=== PATIENT | female | born 1950 | race Caucasian/White ===

== ENCOUNTER 2016-12-16 09:52 | Day surgery (SDC) | payer OTHER ==
[2016-12-16] VITALS (7 sets, daily range): BP systolic 133–185; BP diastolic 60–92; PULSE 53–62; RESP 18–20; TEMP 97.4–98.3; O2SAT 93–95
[~2016-12-16] VITALS: Ht 176.5 cm; Wt 85.9 kg
[2016-12-16] MEDS ORDERED: SODIUM CHLOR 0.9% 1000 ML IV SCH (10:00)
[2016-12-16] MEDS ORDERED: LOVA10TA PO (10:32)
[2016-12-16] MEDS ORDERED: FURO1TAB60 PO (10:32)
[2016-12-16] MEDS ORDERED: WARF-60 PO (10:32)
[2016-12-16] MEDS ORDERED: COZA25TA PO (10:32)
[2016-12-16] MEDS ORDERED: ALLO100T PO (10:32)
[2016-12-16] MEDS ORDERED: BACL20TA PO (10:32)
[2016-12-16] MEDS ORDERED: POTA-163 PO (10:32)
[2016-12-16] MEDS ORDERED: METO25TA3 PO (10:32)
[2016-12-16] MEDS ORDERED: VITA2000 PO (10:35)
[2016-12-16] MEDS ORDERED: MAGN400T24 (10:35)
[2016-12-16] MEDS ORDERED: TIZA4TAB PO (10:35)
[2016-12-16] MEDS ORDERED: ACET-822 (10:35)
[2016-12-16] MEDS ORDERED: OMEP20TA PO (10:35)
[2016-12-16] MEDS ORDERED: MONT10TA2 PO (10:35)
[2016-12-16 11:31] LABS: AUTOMATED NEUTROPHIL # 4.3 TH/MM3 (1.8-7.7); BASOPHIL % 0.8 % (0.0-2.0); EOSINOPHIL # 0.1 TH/MM3 (0-0.4); EOSINOPHIL % 1.4 % (0.0-4.0); HEMATOCRIT 36.1 % (35.0-46.0); HEMO FLAGS DIFF FINAL; LYMPH % 10.5 % (9.0-44.0); LYMPHOCYTE # 0.6 TH/MM3 (1.0-4.8); MEAN CELL VOLUME 91.7 FL (80.0-100.0); MEAN CORPUSCULAR HEMOGLOBIN 30.8 PG (27.0-34.0); MEAN CORPUSCULAR HGB CONC 33.6 % (32.0-36.0); MONO % 7.8 % (0.0-8.0); NEUT % 79.5 % (16.0-70.0); PLATELET COUNT 117 TH/MM3 (150-450); RED BLOOD COUNT 3.94 MIL/MM3 (4.00-5.30); RED CELL DISTRIBUTION WIDTH 15.4 % (11.6-17.2); WHITE BLOOD COUNT 5.4 TH/MM3 (4.0-11.0)
[2016-12-16 11:36] LABS: APTT (PATIENT) 29.8 SEC (24.3-30.1); INTERNATIONAL NORMALIZED RATIO 1.3 RATIO; PROTHROMBIN TIME - PATIENT 14.2 SEC (9.8-11.6)
[2016-12-16] MEDS ORDERED: LIDOCAINE 1%/EPINEPHrine 1:100,000 SOLN 20 ML VIAL ONE (11:49)
[2016-12-16] MEDS ORDERED: fentaNYL CITRATE 250 MCG/5 ML AMP ONE (12:05)
[2016-12-16] MEDS ORDERED: MIDAZOLAM HCL 5 MG/5 ML VIAL ONE (12:06)
--- NOTE | 2016-12-16 15:25 | RADRPT ---
EXAM DATE/TIME: 12/16/2016 12:14 [facility] COMPARISON: No previous studies available for comparison. INDICATIONS : Mesenteric mass. SEDATION TIME: 15 minutes BIOPSY SITE: Left MEDICATION(S): 1.) 2 mg midazolam (Versed) IV 2.) 100 mcg fentanyl (Sublimaze) IV Anesthesia and pain control was provided by the Anesthesia department. DEVICE(S): 1.) 20 gauge Temno core biopsy needle MEDICAL HISTORY : Diabetes mellitus type 2. Hypertension. Cardiovascular disease. SURGICAL HISTORY : Appendectomy. Hysterectomy. Cholecystectomy. ENCOUNTER: Initial ACUITY: 1 day PAIN SCORE: 0/10 LOCATION: Left abdomen A total of one core specimen(s) were obtained and sent to the laboratory for pathologic evaluation. PROCEDURE: 1. CT guided abdomen biopsy. 2. Conscious sedation with continuous EKG and oximetry monitoring. 3. EKG and oximetry remained stable throughout the procedure. Prior to the procedure informed consent was obtained. Any appropriate prior imaging studies were rev iewed. Using automated exposure control and adjustment of the mA and/or kV according to patient size, radiat ion dose was kept as low as reasonably achievable to obtain optimal diagnostic quality images. DICOM format image data is available electronically for review and comparison. The site was prepped in a sterile fashion. Full sterile technique was used, including cap, mask, tim rile gloves and gown and a large sterile sheet. Hand hygiene and 2% chlorhexidine and/or betadine/al cohol prep was utilized per protocol for cutaneous antisepsis. The skin and subcutaneous tissues wer e infiltrated with local anesthetic solution. An 18 gauge blunt needle was placed between loops of bowel down into the mesenteric mass and 3 cores obtained. Material was submitted for pathology as well as for RPMI immediate evaluation. Scan shows no hemorrhage. The patient tolerated the procedure well and there were no complications. The patient was returned to the Radiology Outpatient Unit in stable condition. CONCLUSION: Uncomplicated CT guided biopsy of the mass in the root of the mesentery from the left -sided approach. Pathology is pending. Farhad Tomas MD FACR on December 16, 2016 at 15:22 Board Certified Radiologist. This report was verified electronically.
== END 2016-12-16 16:27 | disposition home or self-care (01) ==
LOC: HRAD 09:52 → HRIP 09:53 → HRAD 16:27
PROVIDERS: ATTEND Internal Medicine Hematology & Oncology
DX: C82.90 Follicular lymphoma, unspecified, unspecified site (principal); I10 Essential (primary) hypertension; J45.909 Unspecified asthma, uncomplicated; E11.9 Type 2 diabetes mellitus without complications; Z95.0 Presence of cardiac pacemaker; Z86.73 Personal history of transient ischemic attack (TIA), and cerebral infarction without residual deficits; Z85.820 Personal history of malignant melanoma of skin; Z95.2 Presence of prosthetic heart valve
CPT/HCPCS: 49180; 77012; 85025; 85610; 85730; 88184; 88185; 88305; 88341; 88342; 99152; J2250; J3010; J7030

== ENCOUNTER 2017-01-06 06:55 | Day surgery (SDC) | payer OTHER ==
[~2017-01-06] VITALS: Ht 175.3 cm; Wt 82.3 kg
[2017-01-06] VITALS (7 sets, daily range): BP systolic 109–147; BP diastolic 55–90; PULSE 59–75; RESP 15–18; TEMP 97.6–97.8; O2SAT 94–98
[~2017-01-06 06:55] MED LIST: ACET-822; ALLO100T PO; BACL20TA PO; COZA25TA PO; FURO1TAB60 PO; LOVA10TA PO; MAGN400T24; METO25TA3 PO; MONT10TA2 PO; OMEP20TA PO; POTA-163 PO; TIZA4TAB PO; VITA2000 PO; WARF-60 PO
[2017-01-06] MEDS ORDERED: ALLO300T2 PO (07:27)
[2017-01-06] MEDS ORDERED: METO5TAB3 PO (07:27)
[2017-01-06] MEDS ORDERED: CHLORHEXIDINE GLUCONATE 2 % 1 PACK (2 CLOTHS) TOPICAL SCH (08:15)
[2017-01-06] MEDS ORDERED: VANCOMYCIN 1000 MG/NS 250 ML - implanted port/tunneled catheter IV SCH ×2 (08:15)
[2017-01-06] MEDS ORDERED: SODIUM CHLORIDE 0.9% 1000 ML IV SCH (08:15)
[2017-01-06 08:16] LABS: BASOPHIL % 0.3 % (0.0-2.0); EOSINOPHIL # 0.1 TH/MM3 (0-0.4); EOSINOPHIL % 1.3 % (0.0-4.0); HEMO FLAGS DIFF FINAL; LYMPH % 12.6 % (9.0-44.0); LYMPHOCYTE # 0.8 TH/MM3 (1.0-4.8); MEAN CELL VOLUME 88.7 FL (80.0-100.0); MEAN CORPUSCULAR HEMOGLOBIN 30.7 PG (27.0-34.0); MEAN CORPUSCULAR HGB CONC 34.6 % (32.0-36.0); MONO % 9.7 % (0.0-8.0); NEUT % 76.1 % (16.0-70.0); PLATELET COUNT 112 TH/MM3 (150-450); RED BLOOD COUNT 3.95 MIL/MM3 (4.00-5.30); RED CELL DISTRIBUTION WIDTH 14.4 % (11.6-17.2); WHITE BLOOD COUNT 6.5 TH/MM3 (4.0-11.0)
[2017-01-06 08:28] LABS: APTT (PATIENT) 25.6 SEC (24.3-30.1); PROTHROMBIN TIME - PATIENT 10.6 SEC (9.8-11.6)
[2017-01-06] MEDS ORDERED: fentaNYL CITRATE 250 MCG/5 ML AMP ONE ×2 (08:54→10:24)
[2017-01-06] MEDS ORDERED: MIDAZOLAM HCL 2 MG/2 ML VIAL ONE ×4 (08:54→10:25)
[2017-01-06] MEDS ORDERED: LIDOCAINE HCL 1% 20 ML VIAL SQ ONE (09:00)
[2017-01-06] MEDS ORDERED: LEVOFLOXACIN 500 MG PREMIX INJ 100 ML IV ONE (09:15)
[2017-01-06] MEDS ORDERED: BUPIVACAINE HCL PF 0.25% 30 ML VIAL OTHER ONE (09:50)
--- NOTE | 2017-01-06 09:55 | RADRPT ---
EXAM DATE/TIME: 01/06/2017 09:11 [facility] COMPARISON: No previous studies available for comparison. INDICATIONS : Thrombocytopenia. SEDATION TIME: 30 minutes BIOPSY SITE: Left iliac MEDICATION(S): 1.) 4 mg midazolam (Versed) IV 2.) 250 mcg fentanyl (Sublimaze) IV DEVICE(S): 1.) 11 gauge Bone biopsy needle MEDICAL HISTORY : Thrombocytopenia. SURGICAL HISTORY : spine ENCOUNTER: Initial ACUITY: 1 day PAIN SCORE: 0/10 LOCATION: Left iliac A total of three core specimen(s) were obtained and sent to the laboratory for pathologic evaluation. PROCEDURE: 1. CT guided bone marrow biopsy. 2. Conscious sedation with continuous EKG and oximetry monitoring. 3. EKG and oximetry remained stable throughout the procedure. Prior to the procedure informed consent was obtained. Any appropriate prior imaging studies were rev iewed. Using automated exposure control and adjustment of the mA and/or kV according to patient size , radiation dose was kept as low as reasonably achievable to obtain optimal diagnostic quality images . DICOM format image data is available electronically for review and comparison. The site was prepped in a sterile fashion. Full sterile technique was used, including cap, mask, tim rile gloves and gown and a large sterile sheet. Hand hygiene and 2% chlorhexidine and/or betadine/al cohol prep was utilized per protocol for cutaneous antisepsis. The skin and subcutaneous tissues wer e infiltrated with local anesthetic solution. With CT guidance the previously identified target was localized. Biopsy was performed using the presc ribed needle as above. Following biopsy marrow aspiration was performed with repeat puncture. Adequa te hemostasis was obtained with compression at the puncture site. Follow-up CT scan reveals no hemorrhage. Conscious sedation was performed with the prescribed dosages and duration as above in the presence of an independent trained radiology nurse to assist in the monitoring of the patient. EKG and oximetry remained stable throughout the procedure. The patient tolerated the procedure well and there were no complications. The patient was sent to Radiology Outpatient Unit in stable condition. CONCLUSION: 1. Uncomplicated CT guided bone marrow aspirate. 2. Uncomplicated CT guided bone marrow biopsy. Farhad Tomas MD FACR on January 06, 2017 at 9:53 Board Certified Radiologist. This report was verified electronically.
[2017-01-06 10:20] LABS: BONE MARROW PROCESSING COMPLETE; IRON STAIN DONE; JENNER GIEMSA STAIN DONE
[2017-01-06] MEDS ORDERED: LIDOCAINE 1%/EPINEPHrine 1:100,000 SOLN 20 ML VIAL ONE (10:41)
[2017-01-06] MEDS ORDERED: diphenhydrAMINE HCL 50 MG/ML VIAL ONE (10:52)
--- NOTE | 2017-01-06 11:27 | PD.RAD ---
Post Procedure Progress Note Pre Procedure Diagnosis: (1) Lymphoma Post Procedure Diagnosis: (1) Lymphoma Procedure Date: Jan 06, 2017 Supervising Radiologist: Dash Miller JR Proceduralist/Assist: Alyssia Jaeger, RT(R)(CV), Li Ellis RT(R) Anesthesia: Conscious Sedation Plan of Activity Patient to Unit: ROPU Patient Condition: Good See PACS Report for procedural detail/treatment Central Venous Access Device Procedure 1 Right Internal Jugular Infusaport Placement single lumen Lithuanian: 8 Findings: Port in good position and functions well. OK to use. Plan F/U with IR or a physician in 10-14 days for a site check Jr. Paul,Dash Hendricks MD Jan 06, 2017 11:27
[2017-01-06] MEDS ORDERED: SODIUM CHLORIDE 0.9% FLUSH 10 ML FLUSH IVF PRN (11:30)
--- NOTE | 2017-01-06 13:08 | RADRPT ---
EXAM DATE/TIME: 01/06/2017 10:24 [facility] COMPARISON: No previous studies available for comparison. INDICATIONS : Patient with lymphoma. MEDICAL HISTORY : 1. TIA 2. MS 3. CHF 4. HTN 5. A fib 6. Asthma 7. GERD SURGICAL HISTORY : 1. Pacer 2. Valve replacement 3. Bone marrow bx 4. Cataract surgery 5. Appe 6. Chloe 7. Hysterectomy 8,. back surgery ENCOUNTER: Initial ACUITY: 1 month PAIN SCORE: 0/10 FLUORO TIME: 0.6 minutes IMAGE SERIES: 0 SEDATION TIME: 20 minutes ACCESS: Right internal jugular vein SEDATION: 1.) 2 mg midazolam (Versed) IV 2.) 100 mcg fentanyl (Sublimaze) IV 3.) 25mg Benadryl IV Prophylactic antibiotics were administered with appropriate pre-procedure timing. Patient has multiple allergies. Levaquin 500 mg was utilized.. DEVICE: 1. 8 Mauritanian single lumen smart port PROCEDURE : 1. Continuous pulse oximetry and EKG monitoring. 2. Intravenous conscious sedation. 3. Ultrasound guidance for venous access. 4. Fluoroscopic guided implantable central venous port placement. The patient was placed supine. The neck was prepped in sterile fashion. Full sterile technique was u sed, including cap, mask, sterile gloves and gown, and a large sterile sheet. Hand hygiene and 2% ch lorhexidine Betadine was utilized per protocol for cutaneous antisepsis with appropriate dry time for site. The skin and subcutaneous tissues were infiltrated with local anesthetic solution. Under direct ultrasound guidance, central venous access was accomplished in the targeted vessel. The ultrasound images depicting access guidance were stored and saved to PACS for permanent record. A s ubcutaneous pocket was created using blunt dissection. The port was introduced to the pocket. The c atheter tubing was fed through a subcutaneous tunnel to the venotomy site. The catheter tubing was c ut to a suitable length and then was introduced through a valved Peel-Away sheath and positioned with catheter tubing tip at the cavo-atrial junction level. The pocket incision was closed with subcutic ular Vicryl suture. Steri-Strips were applied. The port was flushed and locked with heparin solutio n per protocol. Sterile dressing was applied to the site. The patient tolerated the procedure well. Conscious sedation was performed with the prescribed dosages and duration as above in the presence of an independent trained radiology nurse to assist in the monitoring of the patient. EKG and oximetry remained stable throughout the procedure. The patient tolerated the procedure well and there were no complications. The patient was sent to post anesthesia recovery in stable condition. CONCLUSION: Uncomplicated ultrasound and fluoroscopic guided implanted central venous port catheter placement as described in detail above. An 8 Mauritanian Power port was placed. Dash Miller Jr., MD on January 06, 2017 at 11:39 Board Certified Radiologist. This report was verified electronically.
== END 2017-01-06 11:41 | disposition home or self-care (01) ==
LOC: HRAD 06:55 → HRIP 06:56 → HRAD 11:41
PROVIDERS: ATTEND Internal Medicine Hematology & Oncology
DX: C85.90 Non-Hodgkin lymphoma, unspecified, unspecified site (principal); G35 Multiple sclerosis; G45.9 Transient cerebral ischemic attack, unspecified; Z01.818 Encounter for other preprocedural examination
CPT/HCPCS: 36561; 38221; 76937; 77001; 77012; 85025; 85097; 85610; 85730; 88184; 88185; 88237; 88264; 88280; 88305; 88311; 88313; 99152; 99153; C1788; C1830; J1200; J1642; J2250; J3010

== ENCOUNTER 2017-01-09 21:39 | Emergency (ER) | payer OTHER ==
[~2017-01-09] VITALS: Ht 175.3 cm; Wt 85.5 kg
[~2017-01-09 21:39] MED LIST changes: -ALLO100T PO; +ALLO300T2 PO; -MAGN400T24; +MAGN400T24 PO; +METO5TAB3 PO
[2017-01-09 21:40] VITALS: BP 110/58; PULSE 59; RESP 15; TEMP 97.9; O2SAT 97
--- NOTE | 2017-01-09 22:42 | PD ---
HPI Chief Complaint: General Weakness Time Seen by Provider: 22:37 Travel History International Travel<30 days: No Contact w/Intl Traveler<30days: No Traveled to known affect area: No History of Present Illness HPI 66-year-old female that presents to the ED for evaluation of generalized weakness as well as nausea and body aches. Per patient she recently started chemotherapy. She has non-Hodgkin's lymphoma and she had the report as well as a bone marrow biopsy done on Friday. Per patient she's been doing okay until today. Per patient on Friday and Friday she received a dose each day of chemotherapy. Per patient today she felt fine except that she was quite awake at 9:00 in the morning. Per patient is was in usual for her. Per patient she believes is a side effect from the steroids. She went shopping with her and she was active the whole day and then when she got home she started feeling weak and tired with body aches to her neck and chest. Per patient she felt somewhat nauseous. She states that she has no obvious chest pain at this time or shortness of breath. Per patient she is feels weak with body aches. She's never had chemotherapy before. She has not really had any reactions to be as far she can tell. She follows with Dr. Mayberry for cancer. No other medical issues. She does have multiple allergies to medication. PFSH Past Medical History Hx Anticoagulant Therapy: Yes (Coumadin) Cancer: Yes (skin ca on nose) Cardiovascular Problems: Yes (Artificial valve, Pacemaker, Bradycardia, ) Chemotherapy: Yes Cerebrovascular Accident: Yes (TIA x3 2005) Diabetes: No Endocrine: No Gastrointestinal Disorders: Yes (gerd) Genitourinary: Yes (recently- blood in urine, kidney stones) Hepatitis: No Hiatal Hernia: No Hypertension: Yes Immune Disorder: No Musculoskeletal: Yes (multiple sclerosis) Neurologic: Yes (tia, multiple sclerosis) Psychiatric: No Respiratory: Yes (Asthma) Immunizations Current: Yes Thyroid Disease: No ?: Not Past Surgical History Abdominal Surgery: Yes (navin, appy, chocolate cyst removal) Cardiac Surgery: Yes (avr, pacer) Gynecologic Surgery: Yes (left ovary removed, hysterectomy) Hysterectomy: Yes Pacemaker: Yes ([employer] SR Model #[id number]) Other Surgery: Yes Social History Alcohol Use: No Tobacco Use: No Substance Use: No Allergies-Medications (Allergen,Severity, Reaction): Coded Allergies: ampicillin (Unverified Allergy, Severe, Hives, 01/07/17) aspirin (Unverified Allergy, Severe, Hives, 01/07/17) cashew nut (Unverified Allergy, Severe, Anaphylaxis, 01/07/17) ciprofloxacin (Unverified Allergy, Severe, Hives, 01/07/17) doxycycline (Unverified Allergy, Severe, Anaphylaxis, 01/07/17) erythromycin base (Unverified Allergy, Severe, Anaphylaxis, 01/07/17) iodine (Unverified Allergy, Severe, Shortness of Breath, 01/07/17) minocycline (Unverified Allergy, Severe, Anaphylaxis, 01/07/17) morphine (Unverified Allergy, Severe, Anaphylaxis, 01/07/17) penicillin G (Unverified Allergy, Severe, Hives, 01/07/17) potassium iodide (Unverified Allergy, Severe, Shortness of Breath, 01/07/17 ) povidone-iodine (Unverified Allergy, Severe, Shortness of Breath, 01/07/17) sodium iodide (Unverified Allergy, Severe, Shortness of Breath, 01/07/17) sodium iodide (Unverified Allergy, Severe, Shortness of Breath, 01/07/17) tigecycline (Unverified Allergy, Severe, Anaphylaxis, 01/07/17) acetaminophen (Unverified Allergy, Unknown, Hives, 01/07/17) bee venom protein (honey bee) (Unverified Allergy, Unknown, Shortness of Breath, 01/07/17) cephalexin (Unverified Allergy, Unknown, Hives, 01/07/17) codeine (Unverified Allergy, Unknown, Hives, 01/07/17) diclofenac (Unverified Allergy, Unknown, Hives, 01/07/17) etodolac (Unverified Allergy, Unknown, Hives, 01/07/17) flurbiprofen (Unverified Allergy, Unknown, Hives, 01/07/17) gentamicin (Unverified Allergy, Unknown, Hives, 01/07/17) ibuprofen (Unverified Allergy, Unknown, Hives, 01/07/17) indomethacin (Unverified Allergy, Unknown, Hives, 01/07/17) ketoprofen (Unverified Allergy, Unknown, Hives, 01/07/17) ketorolac (Unverified Allergy, Unknown, Hives, 01/07/17) metronidazole (Unverified Allergy, Unknown, Hives, 01/07/17) naproxen (Unverified Allergy, Unknown, Hives, 01/07/17) oxaprozin (Unverified Allergy, Unknown, Hives, 01/07/17) oxycodone (Unverified Allergy, Unknown, Hives, 01/07/17) propoxyphene (Unverified Allergy, Unknown, Hives, 01/07/17) Uncoded Allergies: KEFLIN (Allergy, Severe, Hives, 12/16/16) Reported Meds & Prescriptions Reported Meds & Active Scripts Active Reported Metolazone 5 Mg Tab 5 Mg PO DAILY Allopurinol 300 Mg Tab 300 Mg PO DAILY Magnesium (Magnesium Oxide) 400 Mg Tablet BID Tylenol Extra Strength (Acetaminophen) 500 Mg Tablet 1,000 QID Vitamin D3 (Cholecalciferol) 2,000 Unit Cap 2,000 Units PO DAILY Tizanidine (Tizanidine HCl) 4 Mg Tab 4 Mg PO HS Singulair (Montelukast Sodium) 10 Mg Tab 10 Mg PO HS Omeprazole 20 Mg Tab 20 Mg PO BID Metoprolol Tartrate 25 Mg Tab 12.5 Mg PO BID Lovastatin 10 Mg Tab 10 Mg PO 2XWEEK Lasix (Furosemide) 40 Mg Tab 40 Mg PO BID Potassium Chloride ER (Potassium Chloride) 20 Meq Tab 20 Meq PO DAILY Cozaar (Losartan Potassium) 25 Mg Tab 25 Mg PO DAILY Warfarin 6 Mg Tab 6 Mg PO DAILY Baclofen 20 Mg Tab 20 Mg PO QID Review of Systems Except as stated in HPI: all other systems reviewed are Neg Physical Exam Narrative GENERAL: SKIN: Warm and dry. Patient has a port to the right chest with some bruising from recent surgery. HEAD: Atraumatic. Normocephalic. EYES: Pupils equal and round. No scleral icterus. No injection or drainage. ENT: No nasal bleeding or discharge. Mucous membranes pink and moist. Tongue is midline. No uvula deviation. NECK: Trachea midline. No JVD. CARDIOVASCULAR: Regular rate and rhythm. No murmurs, S3, S4. RESPIRATORY: No accessory muscle use. Clear to auscultation. Breath sounds equal bilaterally. GASTROINTESTINAL: Abdomen soft, non-tender, nondistended. Hepatic and splenic margins not palpable. MUSCULOSKELETAL: Extremities without clubbing, cyanosis, or edema. No obvious deformities. Full range of motion of the upper and lower extremities bilaterally. 2+ pulses bilaterally. NEUROLOGICAL: Awake and alert. No obvious cranial nerve deficits. Motor grossly within normal limits. Five out of 5 muscle strength in the arms and legs. Normal speech. PSYCHIATRIC: Appropriate mood and affect; insight and judgment normal. Data Data Last Documented VS Vital Signs Date Time Temp Pulse Resp B/P Pulse Ox O2 Delivery O2 Flow Rate FiO2 01/09/17 21:40 97.9 59 15 110/58 97 Room Air Orders Complete Blood Count With Diff (01/09/17 22:22) Comprehensive Metabolic Panel (01/09/17 22:22) Troponin I (01/09/17 22:22) B-Type Natriuretic Peptide (01/09/17 22:22) Ua Includes Microscopic (01/09/17 22:22) Magnesium (Mg) (01/09/17 22:22) Chest, Single Ap (01/09/17 22:22) Lactic Acid (01/09/17 22:22) MDM Medical Decision Making Medical Screen Exam Complete: Yes Emergency Medical Condition: Yes Medical Record Reviewed: Yes Differential Diagnosis Medication side effect versus generalized weakness versus dehydration versus sepsis versus chemotherapy Narrative Course 66-year-old female that presents to the ED for evaluation of generalized weakness. Patient was properly examined and was found to have signs and symptoms which appear to be more consistent with chemotherapy related side effects. Will do labs. Patient was started on IV fluids. Case will be signed out to my attending pending labs and dispo. Trevin Duenas Jan 09, 2017 22:42
[2017-01-09 22:49] LABS: AUTOMATED NEUTROPHIL # 7.5 TH/MM3 (1.8-7.7); BASOPHIL % 0.4 % (0.0-2.0); EOSINOPHIL # 0.1 TH/MM3 (0-0.4); EOSINOPHIL % 0.6 % (0.0-4.0); HEMATOCRIT 31.7 % (35.0-46.0); HEMO FLAGS DIFF FINAL; LYMPH % 5.7 % (9.0-44.0); LYMPHOCYTE # 0.5 TH/MM3 (1.0-4.8); MEAN CELL VOLUME 89.9 FL (80.0-100.0); MEAN CORPUSCULAR HGB CONC 34.5 % (32.0-36.0); MONO % 9.9 % (0.0-8.0); NEUT % 83.4 % (16.0-70.0); PLATELET COUNT 107 TH/MM3 (150-450); RED BLOOD COUNT 3.53 MIL/MM3 (4.00-5.30); RED CELL DISTRIBUTION WIDTH 14.8 % (11.6-17.2)
--- NOTE | 2017-01-09 22:54 | RADRPT ---
EXAM DATE/TIME: 01/09/2017 22:27 [facility] COMPARISON: No previous studies available for comparison. INDICATIONS : Chest pain. Reaction to chemotherapy. MEDICAL HISTORY : Asthma. Bronchiitis. Thrombocytopenia. SURGICAL HISTORY : Pacemaker. Aortic valve replacement. ENCOUNTER: Initial ACUITY: 1 day PAIN SCORE: 5/10 LOCATION: Bilateral chest FINDINGS: A single view of the chest demonstrates the lungs to be symmetrically aerated without evidence of mas s, infiltrate or effusion. Heart size is prominent but well compensated. Findings of prior CABG with multiple median sternotomy wires and surgical clips projecting over the heart. The fourth sternotomy wire from the top is fractured. Left subclavian bipolar pacer is radiographically intact. Right IJ [id number] catheter with the ti p projecting over the central venous system. The port appears to be accessed. Osseous structures are intact. CONCLUSION: 1. Borderline prominent but well compensated heart. 2. Otherwise, no acute cardiopulmonary process. Salomón Obrien MD on January 09, 2017 at 22:50 Board Certified Radiologist. This report was verified electronically.
[2017-01-09 22:59] LABS: ALT (GPT) 33 U/L (10-53); ANION GAP 8 MEQ/L (5-15); AST (GOT) 24 U/L (15-37); BICARBONATE 30.7 MEQ/L (21.0-32.0); BLOOD UREA NITROGEN 63 MG/DL (7-18); CHLORIDE 94 MEQ/L (98-107); GLOMERULAR FILTRATION RATE 28 ML/MIN (>89); MAGNESIUM 2.5 MG/DL (1.5-2.5); POTASSIUM 3.6 MEQ/L (3.5-5.1); SODIUM (NA) 133 MEQ/L (136-145)
[2017-01-09 23:03] LABS: ALKALINE PHOSPHATASE 127 U/L (45-117); TOTAL BILIRUBIN ADULT 0.4 MG/DL (0.2-1.0)
[2017-01-09 23:23] LABS: APTT (PATIENT) 30.1 SEC (24.3-30.1); INTERNATIONAL NORMALIZED RATIO 1.4 RATIO; PROTHROMBIN TIME - PATIENT 15.9 SEC (9.8-11.6)
[2017-01-10 01:01] LABS: BLOOD, URINE NEG (NEG); GLUCOSE,URINE NEG (NEG); HYALINE CAST, URINE 2 /lpf (RARE); KETONE, URINE NEG (NEG); MUCUS URINE FEW /lpf (OCC); NITRITE,URINE NEG (NEG); PH, URINE 6.5 (5.0-8.5); URINE COLOR LIGHT-YELLOW (YELLW/STRAW)
--- NOTE | 2017-01-10 01:04 | PD ---
Physical Exam Narrative GENERAL: SKIN: Warm and dry. HEAD: Atraumatic. Normocephalic. EYES: Pupils equal and round. No scleral icterus. No injection or drainage. ENT: No nasal bleeding or discharge. Mucous membranes pink and moist. NECK: Trachea midline. No JVD. CARDIOVASCULAR: Regular rate and rhythm. RESPIRATORY: No accessory muscle use. Clear to auscultation. Breath sounds equal bilaterally. GASTROINTESTINAL: Abdomen soft, non-tender, nondistended. Hepatic and splenic margins not palpable. MUSCULOSKELETAL: Extremities without clubbing, cyanosis, or edema. No obvious deformities. NEUROLOGICAL: Awake and alert. No obvious cranial nerve deficits. Motor grossly within normal limits. Five out of 5 muscle strength in the arms and legs. Normal speech. PSYCHIATRIC: Appropriate mood and affect; insight and judgment normal. Data Data Last Documented VS Vital Signs Date Time Temp Pulse Resp B/P Pulse Ox O2 Delivery O2 Flow Rate FiO2 01/09/17 21:40 97.9 59 15 110/58 97 Room Air Orders Complete Blood Count With Diff (01/09/17 22:22) Comprehensive Metabolic Panel (01/09/17 22:22) Troponin I (01/09/17 22:22) B-Type Natriuretic Peptide (01/09/17 22:22) Ua Includes Microscopic (01/09/17 22:22) Magnesium (Mg) (01/09/17 22:22) Chest, Single Ap (01/09/17 22:22) Lactic Acid (01/09/17 22:22) Coag Profile (01/09/17 22:43) Labs Laboratory Tests Test 01/09/17 22:30 White Blood Count 9.0 TH/MM3 Red Blood Count 3.53 MIL/MM3 Hemoglobin 10.9 GM/DL Hematocrit 31.7 % Mean Corpuscular Volume 89.9 FL Mean Corpuscular Hemoglobin 31.0 PG Mean Corpuscular Hemoglobin 34.5 % Concent Red Cell Distribution Width 14.8 % Platelet Count 107 TH/MM3 Mean Platelet Volume 9.1 FL Neutrophils (%) (Auto) 83.4 % Lymphocytes (%) (Auto) 5.7 % Monocytes (%) (Auto) 9.9 % Eosinophils (%) (Auto) 0.6 % Basophils (%) (Auto) 0.4 % Neutrophils # (Auto) 7.5 TH/MM3 Lymphocytes # (Auto) 0.5 TH/MM3 Monocytes # (Auto) 0.9 TH/MM3 Eosinophils # (Auto) 0.1 TH/MM3 Basophils # (Auto) 0.0 TH/MM3 CBC Comment DIFF FINAL Differential Comment Prothrombin Time 15.9 SEC Prothromb Time International 1.4 RATIO Ratio Activated Partial 30.1 SEC Thromboplast Time Sodium Level 133 MEQ/L Potassium Level 3.6 MEQ/L Chloride Level 94 MEQ/L Carbon Dioxide Level 30.7 MEQ/L Anion Gap 8 MEQ/L Blood Urea Nitrogen 63 MG/DL Creatinine 1.82 MG/DL Estimat Glomerular Filtration 28 ML/MIN Rate Random Glucose 130 MG/DL Lactic Acid Level 0.9 mmol/L Calcium Level 9.1 MG/DL Magnesium Level 2.5 MG/DL Total Bilirubin 0.4 MG/DL Aspartate Amino Transf 24 U/L (AST/SGOT) Alanine Aminotransferase 33 U/L (ALT/SGPT) Alkaline Phosphatase 127 U/L Troponin I LESS THAN 0.02 NG/ML B-Type Natriuretic Peptide 85 PG/ML Total Protein 6.5 GM/DL Albumin 3.5 GM/DL [facility] Medical Record Reviewed: Yes Supervised Visit with JOSE CRUZ: No Narrative Course PATIENT LABS SUGGESTIVE OF MILD DEHYDRATION, PATIENT TOLERATED PO CHALLENGE, AND HAS METS TO KIDNEYS WHICH ARE CAUSING POOR KIDNEY FUNCTIONS Diagnosis Primary Impression: DEHYDRATION Patient Instructions: Dehydration (ED), General Instructions Disposition: 01 DISCHARGE HOME Condition: Stable Campos Thomas MD Jan 10, 2017 01:04
--- NOTE | 2017-01-10 14:40 | EKG ---
Date Performed: 01/09/2017 Time Performed: 22:19:00 PTAGE: 66 years EKG: ELECTRONIC VENTRICULAR PACEMAKER ABNORMAL RHYTHM ECG NO PREVIOUS TRACING DOCTOR: Donald Mckeon Interpretating Date/Time 01/10/2017 14:36:16
== END 2017-01-10 01:54 | disposition home or self-care (01) ==
LOC: NEPE 21:39
DX: E86.0 Dehydration (principal); R11.0 Nausea; R52 Pain, unspecified; R94.31 Abnormal electrocardiogram [ECG] [EKG]; J45.909 Unspecified asthma, uncomplicated; G35 Multiple sclerosis; I10 Essential (primary) hypertension; K21.9 Gastro-esophageal reflux disease without esophagitis; C85.90 Non-Hodgkin lymphoma, unspecified, unspecified site
CPT/HCPCS: 71010; 80053; 81001; 83605; 83735; 83880; 84484; 85025; 85610; 85730; 93005; 99284; J1642

== ENCOUNTER 2017-01-30 13:03 | Inpatient (IN) | payer OTHER, MEDICARE ==
[~2017-01-30] VITALS: Ht 175.3 cm; Wt 97.7 kg
[2017-01-30 13:07] VITALS: BP 204/88; PULSE 60; RESP 18; TEMP 98.1; O2SAT 98
[2017-01-30] MEDS ORDERED: SODIUM CHLORIDE 0.9% FLUSH 10 ML FLUSH IV FLUSH PRN ×2 (13:30→15:45)
--- NOTE | 2017-01-30 13:41 | PD ---
HPI Chief Complaint: Cardiac Complaint Time Seen by Provider: 13:19 Travel History International Travel<30 days: No Contact w/Intl Traveler<30days: No Traveled to known affect area: No History of Present Illness HPI patient c/o gradual increase in body weight over last 2 weeks, and sob over last 2 days, her oncologist has increased her lasix amount FROM LASIX 40 BID TO TID, but still feels the same....denies cp/[place]/abd pain/n/v/d/fever at this point PFSH Past Medical History Hx Anticoagulant Therapy: Yes (warfarin) Cancer: Yes (skin ca on nose) Cardiovascular Problems: Yes (aortic valve replaced/pacemaker/chf) Chemotherapy: Yes Cerebrovascular Accident: Yes (TIA x3 2005) Diabetes: Yes Endocrine: No Gastrointestinal Disorders: Yes (gerd) Genitourinary: Yes (recently- blood in urine, kidney stones) Hepatitis: No Hiatal Hernia: No Hypertension: Yes Immune Disorder: No Musculoskeletal: Yes (multiple sclerosis) Neurologic: Yes (tia, multiple sclerosis) Psychiatric: No Respiratory: Yes (Asthma) Immunizations Current: Yes Thyroid Disease: No Past Surgical History Abdominal Surgery: Yes (navin, appy, chocolate cyst removal) Cardiac Surgery: Yes (avr, pacer) Gynecologic Surgery: Yes (left ovary removed, hysterectomy) Hysterectomy: Yes Pacemaker: Yes ([employer] SR Model #[id number]) Other Surgery: Yes Social History Alcohol Use: No Tobacco Use: No Substance Use: No Allergies-Medications (Allergen,Severity, Reaction): Coded Allergies: ampicillin (Unverified Allergy, Severe, Hives, 01/07/17) aspirin (Unverified Allergy, Severe, Hives, 01/07/17) cashew nut (Unverified Allergy, Severe, Anaphylaxis, 01/07/17) ciprofloxacin (Unverified Allergy, Severe, Hives, 01/07/17) doxycycline (Unverified Allergy, Severe, Anaphylaxis, 01/07/17) erythromycin base (Unverified Allergy, Severe, Anaphylaxis, 01/07/17) iodine (Unverified Allergy, Severe, Shortness of Breath, 01/07/17) minocycline (Unverified Allergy, Severe, Anaphylaxis, 01/07/17) morphine (Unverified Allergy, Severe, Anaphylaxis, 01/07/17) penicillin G (Unverified Allergy, Severe, Hives, 01/07/17) potassium iodide (Unverified Allergy, Severe, Shortness of Breath, 01/07/17 ) povidone-iodine (Unverified Allergy, Severe, Shortness of Breath, 01/07/17) sodium iodide (Unverified Allergy, Severe, Shortness of Breath, 01/07/17) sodium iodide (Unverified Allergy, Severe, Shortness of Breath, 01/07/17) tigecycline (Unverified Allergy, Severe, Anaphylaxis, 01/07/17) acetaminophen (Unverified Allergy, Unknown, Hives, 01/07/17) bee venom protein (honey bee) (Unverified Allergy, Unknown, Shortness of Breath, 01/07/17) cephalexin (Unverified Allergy, Unknown, Hives, 01/07/17) codeine (Unverified Allergy, Unknown, Hives, 01/07/17) diclofenac (Unverified Allergy, Unknown, Hives, 01/07/17) etodolac (Unverified Allergy, Unknown, Hives, 01/07/17) flurbiprofen (Unverified Allergy, Unknown, Hives, 01/07/17) gentamicin (Unverified Allergy, Unknown, Hives, 01/07/17) ibuprofen (Unverified Allergy, Unknown, Hives, 01/07/17) indomethacin (Unverified Allergy, Unknown, Hives, 01/07/17) ketoprofen (Unverified Allergy, Unknown, Hives, 01/07/17) ketorolac (Unverified Allergy, Unknown, Hives, 01/07/17) metronidazole (Unverified Allergy, Unknown, Hives, 01/07/17) naproxen (Unverified Allergy, Unknown, Hives, 01/07/17) oxaprozin (Unverified Allergy, Unknown, Hives, 01/07/17) oxycodone (Unverified Allergy, Unknown, Hives, 01/07/17) propoxyphene (Unverified Allergy, Unknown, Hives, 01/07/17) Uncoded Allergies: KEFLIN (Allergy, Severe, Hives, 12/16/16) Reported Meds & Prescriptions Reported Meds & Active Scripts Active Reported Metolazone 5 Mg Tab 5 Mg PO DAILY Allopurinol 300 Mg Tab 300 Mg PO DAILY Magnesium (Magnesium Oxide) 400 Mg Tablet BID Tylenol Extra Strength (Acetaminophen) 500 Mg Tablet 1,000 QID Vitamin D3 (Cholecalciferol) 2,000 Unit Cap 2,000 Units PO DAILY Tizanidine (Tizanidine HCl) 4 Mg Tab 4 Mg PO HS Singulair (Montelukast Sodium) 10 Mg Tab 10 Mg PO HS Omeprazole 20 Mg Tab 20 Mg PO BID Metoprolol Tartrate 25 Mg Tab 12.5 Mg PO BID Lovastatin 10 Mg Tab 10 Mg PO 2XWEEK Lasix (Furosemide) 40 Mg Tab 40 Mg PO BID Potassium Chloride ER (Potassium Chloride) 20 Meq Tab 20 Meq PO DAILY Cozaar (Losartan Potassium) 25 Mg Tab 25 Mg PO DAILY Warfarin 6 Mg Tab 6 Mg PO DAILY Baclofen 20 Mg Tab 20 Mg PO QID Review of Systems Except as stated in HPI: all other systems reviewed are Neg Respiratory: Positive: Shortness of Breath Physical Exam Narrative GENERAL: SKIN: Warm and dry. HEAD: Atraumatic. Normocephalic. EYES: Pupils equal and round. No scleral icterus. No injection or drainage. ENT: No nasal bleeding or discharge. Mucous membranes pink and moist. NECK: Trachea midline. No JVD. CARDIOVASCULAR: Regular rate and rhythm. RESPIRATORY: No accessory muscle use. bibasilar crackles GASTROINTESTINAL: Abdomen soft, non-tender, nondistended. MUSCULOSKELETAL: Extremities without clubbing, cyanosis, or becca le 4+ edema. No obvious deformities. NEUROLOGICAL: Awake and alert. No obvious cranial nerve deficits. Motor grossly within normal limits. Five out of 5 muscle strength in the arms and legs. Normal speech. PSYCHIATRIC: Appropriate mood and affect; insight and judgment normal. Data Data Last Documented VS Vital Signs Date Time Temp Pulse Resp B/P (MAP) Pulse Ox O2 Delivery O2 Flow Rate FiO2 01/30/17 13:07 98.1 60 18 204/88 (126) 98 Room Air Orders Orders Complete Blood Count With Diff (01/30/17 13:23) Comprehensive Metabolic Panel (01/30/17 13:23) Lipase (01/30/17 13:23) Lactic Acid (01/30/17 13:23) Prothrombin Time / Inr (Pt) (01/30/17 13:23) Act Partial Throm Time (Ptt) (01/30/17 13:23) Urinalysis - C+S If Indicated (01/30/17 13:23) Iv Access Insert/Monitor (01/30/17 13:23) Ecg Monitoring (01/30/17 13:23) Oximetry (01/30/17 13:23) NPO (01/30/17 13:23) Sodium Chloride 0.9% Flush (Ns Flush) (01/30/17 13:30) Ckmb (Isoenzyme) Profile (01/30/17 13:34) Troponin I (01/30/17 13:34) B-Type Natriuretic Peptide (01/30/17 13:34) Chest, Single Ap (01/30/17 14:00) Blood Culture (01/30/17 15:14) Blood Glucose (01/30/17 15:14) Oxygen Administration (01/30/17 15:14) Aztreonam Inj (Azactam Inj) (01/30/17 15:14) Gentamicin Inj (Gentamicin Inj) (01/30/17 15:14) Labs Laboratory Tests Test 01/30/17 13:45 01/30/17 13:55 01/30/17 14:00 White Blood Count 1.9 TH/MM3 Red Blood Count 4.59 MIL/MM3 Hemoglobin 14.1 GM/DL Hematocrit 43.0 % Mean Corpuscular Volume 93.7 FL Mean Corpuscular Hemoglobin 30.8 PG Mean Corpuscular Hemoglobin Concent 32.8 % Red Cell Distribution Width 16.9 % Platelet Count 51 TH/MM3 Mean Platelet Volume 7.8 FL Neutrophils (%) (Auto) 82.8 % Lymphocytes (%) (Auto) 3.2 % Monocytes (%) (Auto) 11.5 % Eosinophils (%) (Auto) 1.7 % Basophils (%) (Auto) 0.8 % Neutrophils # (Auto) 1.6 TH/MM3 Lymphocytes # (Auto) 0.1 TH/MM3 Monocytes # (Auto) 0.2 TH/MM3 Eosinophils # (Auto) 0.0 TH/MM3 Basophils # (Auto) 0.0 TH/MM3 CBC Comment AUTO DIFF Blood Urea Nitrogen 26 MG/DL Creatinine 1.12 MG/DL Random Glucose 127 MG/DL Total Protein 6.1 GM/DL Albumin 3.3 GM/DL Calcium Level 8.5 MG/DL Alkaline Phosphatase 115 U/L Aspartate Amino Transf (AST/SGOT) 22 U/L Alanine Aminotransferase (ALT/SGPT) 17 U/L Total Bilirubin 0.6 MG/DL Sodium Level 140 MEQ/L Potassium Level 4.1 MEQ/L Chloride Level 106 MEQ/L Carbon Dioxide Level 26.1 MEQ/L Anion Gap 8 MEQ/L Estimat Glomerular Filtration Rate 49 ML/MIN Lipase 127 U/L Lactic Acid Level 0.8 mmol/L Urine Color LIGHT-YELLOW Urine Turbidity CLEAR Urine pH 6.0 Urine Specific [place] 1.008 Urine Protein NEG mg/dL Urine Glucose (UA) NEG mg/dL Urine Ketones NEG mg/dL Urine Occult Blood NEG Urine Nitrite NEG Urine Bilirubin NEG Urine Urobilinogen LESS THAN 2.0 MG/DL Urine Leukocyte Esterase NEG Urine RBC LESS THAN 1 /hpf Urine WBC LESS THAN 1 /hpf Urine Squamous Epithelial Cells <1 /hpf Microscopic Urinalysis Comment CULT NOT INDICATED MDM Medical Decision Making Medical Screen Exam Complete: Yes Emergency Medical Condition: Yes Medical Record Reviewed: Yes Interpretation(s) ventricular demand paced rhythm without stemi pattern Differential Diagnosis chf v pulm edema v renal failure v Narrative Course PATIENT IS NEUTROPENIC, WITH CXR C/W LLL INFILTRATE, Diagnosis Primary Impression: LLL PNEUMONIA Additional Impression: NEUTROPENIA Campos Thomas MD Jan 30, 2017 13:41
[2017-01-30 14:30] LABS: AUTOMATED NEUTROPHIL # 1.6 TH/MM3 (1.8-7.7); BASOPHIL % 0.8 % (0.0-2.0); EOSINOPHIL % 1.7 % (0.0-4.0); LYMPH % 3.2 % (9.0-44.0); LYMPHOCYTE # 0.1 TH/MM3 (1.0-4.8); MEAN CELL VOLUME 93.7 FL (80.0-100.0); MEAN CORPUSCULAR HEMOGLOBIN 30.8 PG (27.0-34.0); MEAN CORPUSCULAR HGB CONC 32.8 % (32.0-36.0); MONO % 11.5 % (0.0-8.0); NEUT % 82.8 % (16.0-70.0); PLATELET COUNT 51 TH/MM3 (150-450); RED BLOOD COUNT 4.59 MIL/MM3 (4.00-5.30); RED CELL DISTRIBUTION WIDTH 16.9 % (11.6-17.2); WHITE BLOOD COUNT 1.9 TH/MM3 (4.0-11.0)
[2017-01-30 14:38] LABS: HEMO FLAGS AUTO DIFF
[2017-01-30 14:44] LABS: BLOOD, URINE NEG (NEG); GLUCOSE,URINE NEG (NEG); KETONE, URINE NEG (NEG); NITRITE,URINE NEG (NEG); SQUAMOUS EPITHELIAL CELL URINE <1 /hpf (0-5); URINE COLOR LIGHT-YELLOW (YELLW/STRAW)
[2017-01-30 14:48] LABS: ANION GAP 8 MEQ/L (5-15); AST (GOT) 22 U/L (15-37); BICARBONATE 26.1 MEQ/L (21.0-32.0); BLOOD UREA NITROGEN 26 MG/DL (7-18); CHLORIDE 106 MEQ/L (98-107); GLOMERULAR FILTRATION RATE 49 ML/MIN (>89); POTASSIUM 4.1 MEQ/L (3.5-5.1); SODIUM (NA) 140 MEQ/L (136-145)
[2017-01-30 14:49] LABS: ALT (GPT) 17 U/L (10-53)
[2017-01-30 14:51] LABS: ALKALINE PHOSPHATASE 115 U/L (45-117); TOTAL BILIRUBIN ADULT 0.6 MG/DL (0.2-1.0)
--- NOTE | 2017-01-30 15:11 | RADRPT ---
EXAM DATE/TIME: 01/30/2017 14:03 [facility] COMPARISON: CHEST SINGLE AP, January 09, 2017, 22:27. INDICATIONS : Short of breath MEDICAL HISTORY : Asthma. Bronchiitis. Thrombocytopenia SURGICAL HISTORY : Pacemaker. Aortic valve replacement. Infusaport ENCOUNTER: Initial ACUITY: 1 day PAIN SCORE: 0/10 LOCATION: chest FINDINGS: There is haziness overlapping the left costophrenic angle may represent slight consolidation of the s ite of possibly artifactual. There is no appreciable pleural effusion for technique. Heart and media stinum are unremarkable. Left subclavian transvenous pacer wires are present with tips in the right a trium and right ventricle. Right IJ [id number] is present with tip overlapping the expected region of the SVC. There is evidence for prior median sternotomy. CONCLUSION: Possible slight consolidation above the left costophrenic angle on the left. Kamryn Santamaria MD on January 30, 2017 at 15:09 Board Certified Radiologist. This report was verified electronically.
[2017-01-30 15:14] LABS: COMMENT (UR) CULT NOT INDICATED; CULTURE IF INDICATED CULT NOT INDICATED
[2017-01-30] MEDS ORDERED: GENTAMICIN IV STA (15:14)
[2017-01-30] MEDS ORDERED: SODIUM CHLORIDE 0.9% IV STA (15:14)
[2017-01-30] MEDS ORDERED: AZTREONAM INJ 2,000 MG in SODIUM CHLORIDE 0.9% INJ 100 ML IV STA (15:15)
[2017-01-30 15:32] LABS: BANDS 2 % (0-6); BASOPHILS 2 % (0-2); EOSINOPHILS 1 % (0-4); NEUTROPHIL # MANUAL DIFF 1.5 TH/MM3 (1.8-7.7); POLYS (SEG NEUTROPHILS) 79 % (16-70); WBC DIFF SAMPLE 100
[2017-01-30 15:33] LABS: PLATELET ESTIMATE SMEAR LOW (NORMAL); PLATELET MORPHOLOGY NORMAL (NORMAL); SCAN/DIFF FINAL DIFF MANUAL
[2017-01-30] MEDS ORDERED: NALOXONE HCL 0.4 MG/ML AMP IV PRN (15:45)
[2017-01-30] MEDS ORDERED: Vancomycin Consult Pharmacy 1 EA OTHER SCH (15:45)
[2017-01-30] MEDS ORDERED: metroNIDAZOLE 500 MG INJ 100 ML IV SCH (15:45)
[2017-01-30] MEDS ORDERED: MAGNESIUM HYDROXIDE SUSP 30 ML CUP PO PRN (15:45)
[2017-01-30] MEDS ORDERED: BISACODYL 10 MG SUPP RECTAL PRN (15:45)
[2017-01-30] MEDS ORDERED: SENNOSIDES 8.6 MG TAB PO PRN (15:45)
[2017-01-30 16:00] VITALS: BP 174/75; PULSE 62; RESP 20; O2SAT 99
[2017-01-30] MEDS ORDERED: VANCOMYCIN INJ 2,000 MG in SODIUM CHLORID 0.9% 500 ML INJ 500 ML IV ONE ×2 (17:00→20:00)
--- NOTE | 2017-01-30 17:18 | HHI.HP ---
HPI Service [facility] Primary Care Physician Lane Mayberry MD Admission Diagnosis LLL PNA, NEUTROPENIA, CHF EXAC Diagnoses: Chief Complaint: Increasing SOB, Generalized edema Travel History International Travel<30 Days: No Contact w/Intl Traveler <30 Da: No Traveled to Known Affected Are: No Sepsis Criteria SIRS Criteria (2 or more): WBC > 58087, < 4000 or > 10% bands History of Present Illness Written by Rohan Gibbons, acting as scribe for Dr. Dias on 01/30/17 at 17:18. Patient is a 66-year-old female with primary medical history of B- cell lymphoma non-Hodgkin's, status post chemotherapy, CHF, TIA, HTN who came into the hospital for complaints of increasing shortness of breath and generalized edema. Patient states that she just completed chemotherapy when her last dose was 01/07 to 01/08. States she started noticing about a week ago that her bilateral lower extremity was edematous. She came to her primary care doctor and she was given Lasix and metolazone. She came back to follow up and states that her kidneys might have a problem with metolazone that she was taken off of it. About 2 days ago patient had increasing shortness of breath, cough nonproductive, dry. She was seen by her primary care doctor and has increased her Lasix from 40 twice a day to 3 times a day but patient continues to feel the same and has worsening shortness of breath. Patient also complains of right lower quadrant pain, 10 over 10 one it is painful, intermittent, sharp, localized does not radiate anywhere, does know what aggravates or relieves it. Otherwise, denies fevers, chills, nausea, vomiting, diarrhea. Denies any abdominal pain or abdominal cramping complaints of constipation. Denies chest pain, palpitations, headaches. Denies any dysuria, hematuria. Review of Systems Except as stated in HPI: all other systems reviewed are Neg Past Family Social History Past Medical History HTN Aortic valve disease Gout CHF Lymphoma B-cell non-Hodgkin TIA 3 Kidney stone melanoma Diabetes Past Surgical History Appendectomy AV valve replacement, [facility] valve in 1986, mechanical valve on Coumadin Back surgery L3 to L5 fusion Cataract removal Cholecystectomy Pacemaker placement - HexAirbot Model #[id number] Resection of melanoma 2010 Right breast lumpectomy 2012 Tonsillectomy Tubal ligation Hysterectomy 1989 Reported Medications Pulled from EMR, as instructed by [place] Reported Meds & Active Scripts Active Reported Allopurinol 300 Mg Tab 300 Mg PO DAILY Magnesium (Magnesium Oxide) 400 Mg Tablet BID Tylenol Extra Strength (Acetaminophen) 500 Mg Tablet 1,000 QID Vitamin D3 (Cholecalciferol) 2,000 Unit Cap 2,000 Units PO DAILY Tizanidine (Tizanidine HCl) 4 Mg Tab 4 Mg PO HS Singulair (Montelukast Sodium) 10 Mg Tab 10 Mg PO HS Omeprazole 20 Mg Tab 20 Mg PO BID Metoprolol Tartrate 25 Mg Tab 12.5 Mg PO BID Lovastatin 10 Mg Tab 10 Mg PO 2XWEEK Lasix (Furosemide) 40 Mg Tab 40 Mg PO TID NEB Potassium Chloride ER (Potassium Chloride) 20 Meq Tab 20 Meq PO DAILY Cozaar (Losartan Potassium) 25 Mg Tab 25 Mg PO DAILY Warfarin 6 Mg Tab 6 Mg PO DAILY Baclofen 20 Mg Tab 20 Mg PO QID Allergies: Coded Allergies: ampicillin (Verified Allergy, Severe, Hives, 01/31/17) aspirin (Verified Allergy, Severe, Hives, 01/31/17) cashew nut (Verified Allergy, Severe, Anaphylaxis, 01/31/17) ciprofloxacin (Verified Allergy, Severe, Hives, 01/31/17) doxycycline (Verified Allergy, Severe, Anaphylaxis, 01/31/17) erythromycin base (Verified Allergy, Severe, Anaphylaxis, 01/31/17) iodine (Verified Allergy, Severe, Shortness of Breath, 01/31/17) minocycline (Verified Allergy, Severe, Anaphylaxis, 01/31/17) morphine (Verified Allergy, Severe, Anaphylaxis, 01/31/17) penicillin G (Verified Allergy, Severe, Hives, 01/31/17) potassium iodide (Verified Allergy, Severe, Shortness of Breath, 01/31/17) povidone-iodine (Verified Allergy, Severe, Shortness of Breath, 01/31/17) sodium iodide (Verified Allergy, Severe, Shortness of Breath, 01/31/17) sodium iodide (Verified Allergy, Severe, Shortness of Breath, 01/31/17) tigecycline (Verified Allergy, Severe, Anaphylaxis, 01/31/17) acetaminophen (Verified Allergy, Unknown, Hives, 01/31/17) bee venom protein (honey bee) (Verified Allergy, Unknown, Shortness of Breath, 01/31/17) cephalexin (Verified Allergy, Unknown, Hives, 01/31/17) codeine (Verified Allergy, Unknown, Hives, 01/31/17) diclofenac (Verified Allergy, Unknown, Hives, 01/31/17) etodolac (Verified Allergy, Unknown, Hives, 01/31/17) flurbiprofen (Verified Allergy, Unknown, Hives, 01/31/17) gentamicin (Verified Allergy, Unknown, Hives, 01/31/17) indomethacin (Verified Allergy, Unknown, Hives, 01/31/17) ketoprofen (Verified Allergy, Unknown, Hives, 01/31/17) ketorolac (Verified Allergy, Unknown, Hives, 01/31/17) metronidazole (Verified Allergy, Unknown, Hives, 01/31/17) naproxen (Verified Allergy, Unknown, Hives, 01/31/17) oxaprozin (Verified Allergy, Unknown, Hives, 01/31/17) oxycodone (Verified Allergy, Unknown, Hives, 01/31/17) propoxyphene (Verified Allergy, Unknown, Hives, 01/31/17) Uncoded Allergies: KEFLIN (Allergy, Severe, Hives, 12/16/16) Active Ordered Medications Current Medications Medications (Trade) Dose Ordered Sig/Love Route Start Time Stop Time Status Last Admin Aztreonam 2000 mg/ Sodium Chloride 100 ml @ 200 mls/hr Q8H IV 01/31/17 00:00 Metronidazole 100 ml @ 100 mls/hr Q8H IV 01/30/17 15:45 [facility] Pharmacy Profile Note 0 ml @ 0 mls/hr UNSCH OTHER 01/30/17 15:45 (NS Flush) 2 ml UNSCH PRN IV FLUSH 01/30/17 15:45 (NS Flush) 2 ml BID IV FLUSH 01/30/17 21:00 (Narcan Inj) 0.4 mg UNSCH PRN IV 01/30/17 15:45 (Cassidy-Colace) 1 tab BID PO 01/30/17 21:00 (Milk Of Magnesia Liq) 30 ml Q12H PRN PO 01/30/17 15:45 (Senokot) 17.2 mg Q12H PRN PO 01/30/17 15:45 (Dulcolax Supp) 10 mg DAILY PRN RECTAL 01/30/17 15:45 (Ultram) 50 mg Q6H PRN PO 01/30/17 15:45 Future hold (Lasix Inj) 60 mg BID@09,18 IV PUSH 01/30/17 18:00 Vancomycin HCl 2000 mg/Sodium Chloride 520 ml @ 250 mls/hr ONCE ONCE IV 01/30/17 17:00 01/30/17 19:04 Vancomycin HCl 1800 mg/Sodium Chloride 518 ml @ 250 mls/hr Q24H IV 01/31/17 17:00 Miscellaneous Information SPECIFIC LAB TO BE ANMOL... ONCE ONCE .XX 02/02/17 16:45 02/02/17 16:46 Family History Father has CHF, aneurysm Mother had heart problems, of clot on her legs that went to her lungs Social History Denies alcohol use Denies tobacco use Denies illicit drug use Physical Exam Vital Signs Vital Signs Date Time Temp Pulse Resp B/P (MAP) Pulse Ox O2 Delivery O2 Flow Rate FiO2 01/30/17 13:40 Room Air 01/30/17 13:07 98.1 60 18 204/88 (126) 98 Room Air Physical Exam GENERAL: This is a well-nourished, well-developed patient, short of breath. SKIN: Warm and dry. Bilateral lower extremity with pink color discoloration stasis appearing. HEAD: Atraumatic. Normocephalic. EYES: Pupils equal round and reactive. Extraocular motions intact. No scleral icterus. No injection or drainage. ENT: Nose without bleeding. Throat without erythema. Uvula midline. Airway patent. NECK: Trachea midline. Positive JVD. Supple. CARDIOVASCULAR: Regular rate and rhythm with 3-4 systolic murmurs heard loudest in the left midsternal border, no gallops, or rubs. RESPIRATORY: Crackles on the left middle lobe. No wheezing. GASTROINTESTINAL: Abdomen soft, distended. Right lower quadrant tenderness to palpation. Bowel sounds active 4. Anasarca. MUSCULOSKELETAL: Extremities without clubbing, cyanosis, bilateral lower extremity edema +3. NEUROLOGICAL: Awake and alert. Cranial nerves II through XII intact. Motor and sensory grossly within normal limits. Normal speech. Laboratory Laboratory Tests Test 01/30/17 13:45 01/30/17 13:55 01/30/17 14:00 White Blood Count 1.9 Red Blood Count 4.59 Hemoglobin 14.1 Hematocrit 43.0 Mean Corpuscular Volume 93.7 Mean Corpuscular Hemoglobin 30.8 Mean Corpuscular Hemoglobin Concent 32.8 Red Cell Distribution Width 16.9 Platelet Count 51 Mean Platelet Volume 7.8 Neutrophils (%) (Auto) 82.8 Lymphocytes (%) (Auto) 3.2 Monocytes (%) (Auto) 11.5 Eosinophils (%) (Auto) 1.7 Basophils (%) (Auto) 0.8 Neutrophils # (Auto) 1.6 Lymphocytes # (Auto) 0.1 Monocytes # (Auto) 0.2 Eosinophils # (Auto) 0.0 Basophils # (Auto) 0.0 CBC Comment AUTO DIFF Differential Total Cells Counted 100 Neutrophils % (Manual) 79 Band Neutrophils % 2 Lymphocytes % 2 Monocytes % 14 Eosinophils % 1 Basophils % 2 Neutrophils # (Manual) 1.5 Differential Comment FINAL DIFF MANUAL Platelet Estimate LOW Platelet Morphology Comment NORMAL Blood Urea Nitrogen 26 Creatinine 1.12 Random Glucose 127 Total Protein 6.1 Albumin 3.3 Calcium Level 8.5 Alkaline Phosphatase 115 Aspartate Amino Transf (AST/SGOT) 22 Alanine Aminotransferase (ALT/SGPT) 17 Total Bilirubin 0.6 Sodium Level 140 Potassium Level 4.1 Chloride Level 106 Carbon Dioxide Level 26.1 Anion Gap 8 Estimat Glomerular Filtration Rate 49 B-Type Natriuretic Peptide 113 Lipase 127 Lactic Acid Level 0.8 Urine Color LIGHT-YELLOW Urine Turbidity CLEAR Urine pH 6.0 Urine Specific [place] 1.008 Urine Protein NEG Urine Glucose (UA) NEG Urine Ketones NEG Urine Occult Blood NEG Urine Nitrite NEG Urine Bilirubin NEG Urine Urobilinogen LESS THAN 2.0 Urine Leukocyte Esterase NEG Urine RBC LESS THAN 1 Urine WBC LESS THAN 1 Urine Squamous Epithelial Cells <1 Microscopic Urinalysis Comment CULT NOT INDICATED Date/Time Source Procedure Growth Status 01/30/17 13:55 Blood Peripheral Aerobic Blood Culture Pending Received 01/30/17 13:55 Blood Peripheral Anaerobic Blood Culture Pending Received Result Diagram: 01/30/17 1345 01/30/17 1345 Imaging Last Impressions Chest X-Ray 01/30/17 1400 Signed Impressions: Service Date/Time: January 14:03 - CONCLUSION: Possible slight consolidation above the left costophrenic angle on the left. MD Boone Yusuf VTE Risk Assessment Bo[place] VTE Risk Assessment: Mod/High Risk (score >= 2) Caprini Risk Assessment Model Point Value = 1 Point Value = 2 Point Value = 3 Point Value = 5 Age 41-60 Minor surgery BMI > 25 kg/m2 Swollen legs Varicose veins or History of unexplained or recurrent spontaneous Oral contraceptives or hormone replacement Sepsis (< 1 month) Serious lung disease, including pneumonia (< 1 month) Abnormal pulmonary function Acute myocardial infarction Congestive heart failure (< 1 month) History of inflammatory bowel disease Medical patient at bed rest Age 61-74 Arthroscopic surgery Major open surgery (> 45 min) Laparoscopic surgery (> 45 min) Malignancy Confined to bed (> 72 hours) Immobilizing plaster cast Central venous access Age >= 75 History of VTE Family history of VTE Factor V Leiden Prothrombin [id number] Lupus anticoagulant Anticardiolipin antibodies Elevated serum homocysteine Heparin-induced thrombocytopenia Other congenital or acquired thrombophilia Stroke (< 1 month) Elective arthroplasty Hip, pelvis, or leg fracture Acute spinal cord injury (< 1 month) Prophylaxis Regimen Total Risk Factor Score Risk Level Prophylaxis Regimen 0-1 Low Early ambulation 2 Moderate Order ONE of the following: *Sequential Compression Device (SCD) *Heparin 5000 units SQ BID 3-4 Higher Order ONE of the following medications: *Heparin 5000 units SQ TID *Enoxaparin/Lovenox 40 mg SQ daily (WT < 150 kg, CrCl > 30 mL/min) *Enoxaparin/Lovenox 30 mg SQ daily (WT < 150 kg, CrCl > 10-29 mL/min) *Enoxaparin/Lovenox 30 mg SQ BID (WT < 150 kg, CrCl > 30 mL/min) AND/OR *Sequential Compression Device (SCD) 5 or more Highest Order ONE of the following medications: *Heparin 5000 units SQ TID (Preferred with Epidurals) *Enoxaparin/Lovenox 40 mg SQ daily (WT < 150 kg, CrCl > 30 mL/min) *Enoxaparin/Lovenox 30 mg SQ daily (WT < 150 kg, CrCl > 10-29 mL/min) *Enoxaparin/Lovenox 30 mg SQ BID (WT < 150 kg, CrCl > 30 mL/min) AND *Sequential Compression Device (SCD) Assessment and Plan Problem List: (1) Lymphoma ICD Code: C85.90 - Non-Hodgkin lymphoma, unspecified, unspecified site Status: Acute (2) Systolic CHF, acute on chronic ICD Code: I50.23 - Acute on chronic systolic (congestive) heart failure Status: Acute (3) HTN (hypertension) ICD Code: I10 - Essential (primary) hypertension Status: Chronic (4) SAGE (acute kidney injury) ICD Code: N17.9 - Acute kidney failure, unspecified Status: Acute (5) PNA (pneumonia) ICD Code: J18.9 - Pneumonia, unspecified organism Status: Acute Assessment and Plan Patient is a 66-year-old female with primary medical history of B- cell lymphoma non-Hodgkin's, status post chemotherapy, CHF, TIA, HTN who came into the hospital for complaints of increasing shortness of breath and generalized edema. Pneumonia, Community Acquired Immunocompromised, S/P Chemotherapy - Increasing SOB, cough, Leukocytopenia WBC 1.9 - Chest x-ray showed possible slight consolidation above the left costophrenic angle on the left - Start IV antibiotic vancomycin, aztreonam, Flagyl - Infectious disease consult appreciate input - Monitor respiratory status systolic CHF exacerbation - Bilateral lower extremity edema +3, anasarca secondary to CHF possibly be worsening post chemotherapy - 2-D echo - Lasix IV 60 mg twice a day - Strict I's and O's Acute kidney injury - Creatinine 1.12 - Consult nephrology input appreciated - Avoid nephrotoxins - Trend kidney indices RLQ Abdominal Pain - Complaints of constipation. Possible gas. - MOM, Duculax, Sennakot - Will consider CT of the abdomen and pelvis if pain is worsening or has not resolved HTN PPM Mechanical valve - Patient on Coumadin at home. Monitor INR - Hold losartan for now, as Lasix is given at an increased dose. Metoprolol 12.5 mg twice a day - Monitor BP trend DVT prop Coumadin Code Status Full Code Discussed Condition With Patient, nursing, ED attending This note was transcribed by mike [Rohan Gibbons]. ]. I, Dr. Yvette Dias personally performed the history, physical exam, and medical decision making; and confirmed the accuracy of the information in the transcribed note. Authenticated by Dr. Yvette Dias on 01/30/17 at 17:34. Physician Certification 2 Midnight Certification Type: Admission for Inpatient Services Order for Inpatient Services The services are ordered in accordance with Medicare regulations or non- Medicare payer requirements, as applicable. In the case of services not specified as inpatient-only, they are appropriately provided as inpatient services in accordance with the 2-midnight benchmark. Estimated LOS (days): 2 days is the estimated time the patient will need to remain in the hospital, assuming treatment plan goals are met and no additional complications. Post-Hospital Plan: Home Rohan Davalos Jan 30, 2017 17:18 Yvette Dias MD Jan 30, 2017 17:21
[2017-01-30 17:25] VITALS: BP 165/78; PULSE 60; RESP 20; O2SAT 99
[2017-01-30 18:20] VITALS: BP 179/74; PULSE 61; RESP 18; TEMP 96.3; O2SAT 100
[2017-01-30] MEDS ORDERED: PILL SPLITTER OTHER PRN (18:30)
[2017-01-30] MEDS: FUROSEMIDE 40 MG/4 ML VIAL IV PUSH SCH (18:33)
[2017-01-30 20:00] VITALS: BP 123/60; PULSE 62; RESP 18; TEMP 96.7; O2SAT 98
[2017-01-30 20:45] LABS: APTT (PATIENT) 36.4 SEC (24.3-30.1); INTERNATIONAL NORMALIZED RATIO 1.9 RATIO; PROTHROMBIN TIME - PATIENT 21.4 SEC (9.8-11.6)
[2017-01-30 21:30] VITALS: PULSE 58
[2017-01-30] MEDS: PANTOPRAZOLE SOD 20 MG DELAYED RELEASE TAB PO SCH (21:37)
[2017-01-30] MEDS: METOPROLOL TARTRATE 25 MG TAB PO SCH (21:38)
[2017-01-30] MEDS: DOCUSATE SODIUM 50 MG/SENNA 8.6 MG TAB PO SCH (21:38)
[2017-01-30] MEDS: SODIUM CHLORIDE 0.9% FLUSH 10 ML FLUSH IV FLUSH SCH (21:38)
[2017-01-31] VITALS (7 sets, daily range): BP systolic 91–139; BP diastolic 52–63; PULSE 18–62; RESP 16–18; TEMP 96.2–97; O2SAT 98–100
[2017-01-31] MEDS: AZTREONAM INJ 2,000 MG in SODIUM CHLORIDE 0.9% INJ 100 ML IV SCH ×2 (01:01→09:36)
[2017-01-31] MEDS ORDERED: ONDA4TAB6 PO (03:34)
[2017-01-31] MEDS ORDERED: VANCOMYCIN INJ 1,500 MG in SODIUM CHLORID 0.9% 500 ML INJ 500 ML IV SCH (03:45)
[2017-01-31] MEDS: ONDANSETRON HCL 4 MG/2 ML VIAL IV PUSH PRN ×2 (03:48→22:34)
[2017-01-31] MEDS: traMADol HCL 50 MG TAB PO PRN ×2 (03:57→22:27)
[2017-01-31 05:21] LABS: AUTOMATED NEUTROPHIL # 2.5 TH/MM3 (1.8-7.7); BASOPHIL % 1.4 % (0.0-2.0); EOSINOPHIL # 0.1 TH/MM3 (0-0.4); EOSINOPHIL % 2.5 % (0.0-4.0); HEMATOCRIT 25.5 % (35.0-46.0); LYMPH % 4.5 % (9.0-44.0); LYMPHOCYTE # 0.1 TH/MM3 (1.0-4.8); MEAN CELL VOLUME 93.2 FL (80.0-100.0); MEAN CORPUSCULAR HEMOGLOBIN 31.4 PG (27.0-34.0); MEAN CORPUSCULAR HGB CONC 33.6 % (32.0-36.0); MONO % 15.8 % (0.0-8.0); NEUT % 75.8 % (16.0-70.0); PLATELET COUNT 61 TH/MM3 (150-450); RED BLOOD COUNT 2.74 MIL/MM3 (4.00-5.30); RED CELL DISTRIBUTION WIDTH 16.6 % (11.6-17.2); WHITE BLOOD COUNT 3.3 TH/MM3 (4.0-11.0)
[2017-01-31 05:26] LABS: HEMO FLAGS AUTO DIFF
[2017-01-31 05:29] LABS: INTERNATIONAL NORMALIZED RATIO 1.9 RATIO; PROTHROMBIN TIME - PATIENT 21.3 SEC (9.8-11.6)
[2017-01-31 05:44] LABS: BICARBONATE 26.7 MEQ/L (21.0-32.0)
[2017-01-31 07:03] LABS: PLATELET ESTIMATE SMEAR LOW (NORMAL); PLATELET MORPHOLOGY NORMAL (NORMAL); SCAN/DIFF AUTO DIFF CONFIRMED
--- NOTE | 2017-01-31 08:23 | MB ---
cc: EDDIE ASIF M.D. DATE OF CONSULTATION 01/31/[address] Dias REASON FOR CONSULTATION Oncology consulted to render an opinion regarding patient with lymphoma on chemotherapy admitted with pneumonia. HISTORY OF PRESENT ILLNESS The patient is a very pleasant 66-year-old female recently diagnosed with non-Hodgkin B-cell lymphoma who just completed her first cycle of Rituxan, [place] January 07, 2017. She stated that she was doing well until about a week ago she noticed increased swelling of her lower extremities. She went to see her primary doctor last Friday and Lasix was increased to 120 mg a day. She stated that her swelling did improve, however two days ago, she started having a nonproductive cough and slightly increased shortness of breath. By morning, she has worsening shortness of breath and coughing up some clear sputum. Her symptoms progressively slightly worsened. She was told to come to the emergency room. Chest x-ray showed a left lower lobe infiltrate and possible pneumonia. She also noted right upper quadrant cramps yesterday. She stated it is positional but nonpleuritic. Her pain has almost completely resolved. She has had constipation, but controlled with MiraLax. She denies any fever or chills. She has mild chest pressure, but no palpitation. She denies any nausea or vomiting. Denies any dysuria or hematuria. PAST MEDICAL HISTORY 1. Non-Hodgkin B-cell lymphoma 2. Diabetes mellitus 3. Nephrolithiasis 4. Irregular heartbeat 5. Transient ischemic attack 6. Gout 7. Asthma 8. Heart valve disease PAST SURGICAL HISTORY 1. 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 Appendectomy 3. Back surgery 4. Port placement 5. Cholecystectomy 6. Cataract surgery 7. Pacemaker placement 8. Resection of a melanoma left nares 9. Right lumpectomy 10. Tonsillectomy 11. Bilateral tubal ligation 12. Hysterectomy FAMILY HISTORY Noncontributory SOCIAL HISTORY No tobacco or alcohol use. ALLERGIES Documented in the chart. She had a long list of allergies. MEDICATIONS 1. Vancomycin 2. Warfarin 3. Allopurinol 4. Aztreonam 5. Cassidy-Colace 6. Lopressor 7. Protonix 8. Lasix REVIEW OF SYSTEMS CONSTITUTIONAL: As above. EYES: Negative. ENT: Negative. CARDIOVASCULAR: As above. RESPIRATORY: As above. GI: Denies nausea or vomiting. Has constipation. : No dysuria or hematuria. MUSCULOSKELETAL: Negative. HEMATOLOGY: Negative. DERMATOLOGY: Negative. PSYCHIATRIC: Negative. PHYSICAL EXAMINATION Temperature 96.8, blood pressure 106/52, O2 saturation 98% room air. GENERAL: She is alert and oriented x3 in no acute distress. HEENT: Atraumatic, normocephalic. Pupils equal, round and reactive to light. Extraocular muscles intact. No sclerae icterus. Oropharynx, dry mucosa, no lesion, thrush or mucositis. NECK: No thyromegaly. No palpable masses. LYMPHATICS: No palpable cervical, clavicular, axillary or inguinal lymph nodes. CARDIOVASCULAR: Regular S1-S2. No murmur. Mechanical heart valve noted. LUNGS: Clear to auscultation bilaterally. No significant crackles or wheezing. ABDOMEN: Soft, nontender. I could not palpate the liver or spleen. EXTREMITIES: No cyanosis or clubbing. She has 1+ bilateral lower extremity edema up to the knee. No calf tenderness. SKIN: No rash or petechiae. NEUROLOGIC: Nonfocal. LABORATORY DATA Reviewed ASSESSMENT 1. Pneumonia. She started developing a nonproductive cough two days ago. She also had increased shortness of breath. Yesterday she started coughing up clear sputum. She has no fever. Chest x-ray showed slight consolidation in the left lower lobe just above the left costophrenic angle. She was started on vancomycin and Aztreonam. She stated her symptoms have improved. She has a good O2 saturation on room air at this time. She has a long list of allergies to various antibiotics. She is awaiting an infectious disease evaluation and recommendation for antibiotics. 2. Pancytopenia due to recent chemotherapy. She received her first cycle of Rituxan/Bendamustine January 07. She had mild neutropenia yesterday when she presented. This morning white blood cell count has trended up and neutropenia has resolved. She has baseline anemia and hemoglobin trended down to 8.6 likely due to recent chemotherapy. Platelet count was also low yesterday, but trended up this morning. Continue to monitor CBC for now. I do not anticipate a transfusion at this time. 3. Non-Hodgkin B-cell lymphoma. The patient has grade one follicular lymphoma. She presented with a large mass in the mesentery, clinically stage II. She completed her first cycle of Rituxan/[place]endamustine. She was experiencing right upper quadrant cramps two days ago, but that has resolved. I could not palpate any abdominal mass and she has no abdominal pain at this time. RECOMMENDATIONS 1. Continue antibiotic per primary team and await infectious disease evaluation and recommendation. 2. Continue to monitor CBC. 3. The patient can be discharged from the oncology standpoint if infectious disease is able to switch the patient to an oral antibiotic. 4. The patient can follow up in the oncology clinic prior to her next cycle of chemotherapy. Thank you Dr. Dias for asking us to see this patient. MD TIMBO Rosenberg/EARL /7:18 AM /8:05 AM MTDKarolina
[2017-01-31] MEDS: SODIUM CHLORIDE 0.9% FLUSH 10 ML FLUSH IV FLUSH SCH ×2 (09:00→22:28)
[2017-01-31] MEDS: DOCUSATE SODIUM 50 MG/SENNA 8.6 MG TAB PO SCH ×2 (09:00→21:00)
[2017-01-31] MEDS: FUROSEMIDE 40 MG/4 ML VIAL IV PUSH SCH ×2 (09:24→16:32)
[2017-01-31] MEDS: ALLOPURINOL 300 MG TAB PO SCH (09:25)
[2017-01-31] MEDS: METOPROLOL TARTRATE 25 MG TAB PO SCH ×2 (09:25→22:26)
[2017-01-31] MEDS: PANTOPRAZOLE SOD 20 MG DELAYED RELEASE TAB PO SCH ×2 (09:25→22:27)
--- NOTE | 2017-01-31 11:31 | PD.CONS ---
[facility] Service Nephrology Consult Requested By Dr. Jain Reason for Consult Chronic kidney disease Primary Care Physician Lane Mayberry MD History of Present Illness Patient is a 66-year-old white female with history of obesity, diabetes she stated the in 1998 she was diagnosed with diabetes and she was overweight she lost tremendous amount of weight through Weight Watchers diet and in 2014 diabetes was controlled with diet alone, she was recently diagnosed with B-cell lymphoma affecting the right abdominal mass, possible involving the right kidney as well and she has been having increasing swelling of the lower extremities, in December she was started on a Rituxan in [place] she received 1 cycle she was admitted with increasing shortness of breath and possible pneumonia she is feeling better her creatinine around 1.1. Looking back at the old records creatinine was 1.8 in December Review of Systems Constitutional: COMPLAINS OF: Fatigue Respiratory: COMPLAINS OF: Shortness of breath Cardiovascular: COMPLAINS OF: Lower Extremity Edema Psychiatric: COMPLAINS OF: Anxiety Past Family Social History Allergies: Coded Allergies: ampicillin (Verified Allergy, Severe, Hives, 01/31/17) aspirin (Verified Allergy, Severe, Hives, 01/31/17) cashew nut (Verified Allergy, Severe, Anaphylaxis, 01/31/17) ciprofloxacin (Verified Allergy, Severe, Hives, 01/31/17) doxycycline (Verified Allergy, Severe, Anaphylaxis, 01/31/17) erythromycin base (Verified Allergy, Severe, Anaphylaxis, 01/31/17) iodine (Verified Allergy, Severe, Shortness of Breath, 01/31/17) minocycline (Verified Allergy, Severe, Anaphylaxis, 01/31/17) morphine (Verified Allergy, Severe, Anaphylaxis, 01/31/17) penicillin G (Verified Allergy, Severe, Hives, 01/31/17) potassium iodide (Verified Allergy, Severe, Shortness of Breath, 01/31/17) povidone-iodine (Verified Allergy, Severe, Shortness of Breath, 01/31/17) sodium iodide (Verified Allergy, Severe, Shortness of Breath, 01/31/17) sodium iodide (Verified Allergy, Severe, Shortness of Breath, 01/31/17) tigecycline (Verified Allergy, Severe, Anaphylaxis, 01/31/17) acetaminophen (Verified Allergy, Unknown, Hives, 01/31/17) bee venom protein (honey bee) (Verified Allergy, Unknown, Shortness of Breath, 01/31/17) cephalexin (Verified Allergy, Unknown, Hives, 01/31/17) codeine (Verified Allergy, Unknown, Hives, 01/31/17) diclofenac (Verified Allergy, Unknown, Hives, 01/31/17) etodolac (Verified Allergy, Unknown, Hives, 01/31/17) flurbiprofen (Verified Allergy, Unknown, Hives, 01/31/17) gentamicin (Verified Allergy, Unknown, Hives, 01/31/17) indomethacin (Verified Allergy, Unknown, Hives, 01/31/17) ketoprofen (Verified Allergy, Unknown, Hives, 01/31/17) ketorolac (Verified Allergy, Unknown, Hives, 01/31/17) metronidazole (Verified Allergy, Unknown, Hives, 01/31/17) naproxen (Verified Allergy, Unknown, Hives, 01/31/17) oxaprozin (Verified Allergy, Unknown, Hives, 01/31/17) oxycodone (Verified Allergy, Unknown, Hives, 01/31/17) propoxyphene (Verified Allergy, Unknown, Hives, 01/31/17) Uncoded Allergies: KEFLIN (Allergy, Severe, Hives, 12/16/16) Past Medical History Diabetes B-cell lymphoma Atrial fibrillation Mechanical heart valve Hypertension Melanoma Past Surgical History Appendectomy AV valve replacement, St. Bao's valve in 1986, mechanical valve on Coumadin Back surgery L3 to L5 fusion Cataract removal Cholecystectomy Pacemaker placement Resection of melanoma 2010 Right breast lumpectomy 2011 Tonsillectomy Tubal ligation Hysterectomy 1989 Reported Medications Reported Meds & Active Scripts Active Reported Ondansetron HCl 4 Mg Tab 4 Mg PO BID Allopurinol 300 Mg Tab 300 Mg PO DAILY Magnesium (Magnesium Oxide) 400 Mg Tablet BID Tylenol Extra Strength (Acetaminophen) 500 Mg Tablet 1,000 QID Vitamin D3 (Cholecalciferol) 2,000 Unit Cap 2,000 Units PO DAILY Tizanidine (Tizanidine HCl) 4 Mg Tab 4 Mg PO HS Singulair (Montelukast Sodium) 10 Mg Tab 10 Mg PO HS Omeprazole 20 Mg Tab 20 Mg PO BID Metoprolol Tartrate 25 Mg Tab 12.5 Mg PO BID Lovastatin 10 Mg Tab 10 Mg PO 2XWEEK Lasix (Furosemide) 40 Mg Tab 40 Mg PO TID NEB Potassium Chloride ER (Potassium Chloride) 20 Meq Tab 20 Meq PO DAILY Cozaar (Losartan Potassium) 25 Mg Tab 25 Mg PO DAILY Warfarin 6 Mg Tab 6 Mg PO DAILY Baclofen 20 Mg Tab 20 Mg PO QID Active Ordered Medications Current Medications Medications (Trade) Dose Ordered Sig/Love Route Start Time Stop Time Status Last Admin Aztreonam 2000 mg/ Sodium Chloride 100 ml @ 200 mls/hr Q8H IV 01/31/17 00:00 01/31/17 09:36 Pharmacy Profile Note 0 ml @ 0 mls/hr UNSCH OTHER 01/30/17 15:45 (NS Flush) 2 ml UNSCH PRN IV FLUSH 01/30/17 15:45 (NS Flush) 2 ml BID IV FLUSH 01/30/17 21:00 01/30/17 21:38 (Narcan Inj) 0.4 mg UNSCH PRN IV 01/30/17 15:45 (Cassidy-Colace) 1 tab BID PO 01/30/17 21:00 01/30/17 21:38 (Milk Of Magnesia Liq) 30 ml Q12H PRN PO 01/30/17 15:45 (Senokot) 17.2 mg Q12H PRN PO 01/30/17 15:45 (Dulcolax Supp) 10 mg DAILY PRN RECTAL 01/30/17 15:45 (Ultram) 50 mg Q6H PRN PO 01/30/17 15:45 Future hold 01/31/17 03:57 (Lasix Inj) 60 mg BID@09,18 IV PUSH 01/30/17 18:00 01/31/17 09:24 Vancomycin HCl 1800 mg/Sodium Chloride 518 ml @ 250 mls/hr Q24H IV 01/31/17 17:00 Miscellaneous Information SPECIFIC LAB TO BE ANMOL... ONCE ONCE .XX 02/02/17 16:45 02/02/17 16:46 (Zyloprim) 300 mg DAILY PO 01/31/17 09:00 01/31/17 09:25 (Lopressor) 12.5 mg BID PO 01/30/17 21:00 01/31/17 09:25 (Coumadin) 6 mg DAILY@1600 PO 01/31/17 16:00 (Protonix) 20 mg BID PO 01/30/17 21:00 01/31/17 09:25 Pharmacy Profile Note 0 ml @ 0 mls/hr UNSCH OTHER 01/30/17 18:00 (Pill Splitter) 1 ea UNSCH PRN OTHER 01/30/17 18:30 (Coumadin Booklet) 1 ONCE ONCE OTHER 01/31/17 16:00 01/31/17 16:01 (Zofran Inj) 4 mg Q6H PRN IV PUSH 01/31/17 03:45 01/31/17 03:48 Family History Noncontributory Social History Denies smoking or alcohol use Physical Exam Vital Signs Vital Signs Date Time Temp Pulse Resp B/P (MAP) Pulse Ox O2 Delivery O2 Flow Rate FiO2 01/31/17 08:00 96.2 60 18 139/61 (87) 98 01/31/17 04:00 96.8 60 16 106/52 (70) 98 01/31/17 00:00 60 01/31/17 00:00 97.0 60 18 91/53 (66) 99 01/30/17 21:30 58 01/30/17 20:00 96.7 62 18 123/60 (81) 98 01/30/17 18:20 96.3 61 18 179/74 (109) 100 01/30/17 17:25 60 20 165/78 (107) 99 Room Air 01/30/17 16:00 62 20 174/75 (108) 99 Room Air 01/30/17 13:40 Room Air 01/30/17 13:07 98.1 60 18 204/88 (126) 98 Room Air Physical Exam GENERAL: Well-nourished, well-developed patient. SKIN: Warm and dry. HEAD: Normocephalic. EYES: No scleral icterus. No injection or drainage. NECK: Supple, trachea midline. No JVD or lymphadenopathy. CARDIOVASCULAR: Regular rate and rhythm without murmurs, gallops, or rubs. RESPIRATORY: Breath sounds equal bilaterally. No accessory muscle use. GASTROINTESTINAL: Abdomen soft, non-tender, nondistended. EXTREMITIES: No cyanosis, bilateral leg edema. NEUROLOGICAL: Awake, alert, and oriented x 3. Non-focal. Laboratory Laboratory Tests Test 01/30/17 13:45 01/30/17 13:55 01/30/17 14:00 01/30/17 20:14 White Blood Count 1.9 Red Blood Count 4.59 Hemoglobin 14.1 Hematocrit 43.0 Mean Corpuscular Volume 93.7 Mean Corpuscular Hemoglobin 30.8 Mean Corpuscular Hemoglobin Concent 32.8 Red Cell Distribution Width 16.9 Platelet Count 51 Mean Platelet Volume 7.8 Neutrophils (%) (Auto) 82.8 Lymphocytes (%) (Auto) 3.2 Monocytes (%) (Auto) 11.5 Eosinophils (%) (Auto) 1.7 Basophils (%) (Auto) 0.8 Neutrophils # (Auto) 1.6 Lymphocytes # (Auto) 0.1 Monocytes # (Auto) 0.2 Eosinophils # (Auto) 0.0 Basophils # (Auto) 0.0 CBC Comment AUTO DIFF Differential Total Cells Counted 100 Neutrophils % (Manual) 79 Band Neutrophils % 2 Lymphocytes % 2 Monocytes % 14 Eosinophils % 1 Basophils % 2 Neutrophils # (Manual) 1.5 Differential Comment FINAL DIFF MANUAL Platelet Estimate LOW Platelet Morphology Comment NORMAL Blood Urea Nitrogen 26 Creatinine 1.12 Random Glucose 127 Total Protein 6.1 Albumin 3.3 Calcium Level 8.5 Alkaline Phosphatase 115 Aspartate Amino Transf (AST/SGOT) 22 Alanine Aminotransferase (ALT/SGPT) 17 Total Bilirubin 0.6 Sodium Level 140 Potassium Level 4.1 Chloride Level 106 Carbon Dioxide Level 26.1 Anion Gap 8 Estimat Glomerular Filtration Rate 49 B-Type Natriuretic Peptide 113 Lipase 127 Lactic Acid Level 0.8 Urine Color LIGHT-YELLOW Urine Turbidity CLEAR Urine pH 6.0 Urine Specific [place] 1.008 Urine Protein NEG Urine Glucose (UA) NEG Urine Ketones NEG Urine Occult Blood NEG Urine Nitrite NEG Urine Bilirubin NEG Urine Urobilinogen LESS THAN 2.0 Urine Leukocyte Esterase NEG Urine RBC LESS THAN 1 Urine WBC LESS THAN 1 Urine Squamous Epithelial Cells <1 Microscopic Urinalysis Comment CULT NOT INDICATED Prothrombin Time 21.4 Prothromb Time International Ratio 1.9 Activated Partial Thromboplast Time 36.4 Total Creatine Kinase 34 Troponin I 0.02 Test 01/31/17 03:50 White Blood Count 3.3 Red Blood Count 2.74 Hemoglobin 8.6 Hematocrit 25.5 Mean Corpuscular Volume 93.2 Mean Corpuscular Hemoglobin 31.4 Mean Corpuscular Hemoglobin Concent 33.6 Red Cell Distribution Width 16.6 Platelet Count 61 Mean Platelet Volume 8.3 Neutrophils (%) (Auto) 75.8 Lymphocytes (%) (Auto) 4.5 Monocytes (%) (Auto) 15.8 Eosinophils (%) (Auto) 2.5 Basophils (%) (Auto) 1.4 Neutrophils # (Auto) 2.5 Lymphocytes # (Auto) 0.1 Monocytes # (Auto) 0.5 Eosinophils # (Auto) 0.1 Basophils # (Auto) 0.0 CBC Comment AUTO DIFF Differential Comment AUTO DIFF CONFIRMED Platelet Estimate LOW Platelet Morphology Comment NORMAL Prothrombin Time 21.3 Prothromb Time International Ratio 1.9 Blood Urea Nitrogen 26 Creatinine 1.11 Random Glucose 95 Calcium Level 8.6 Sodium Level 143 Potassium Level 4.0 Chloride Level 111 Carbon Dioxide Level 26.7 Anion Gap 5 Estimat Glomerular Filtration Rate 49 Date/Time Source Procedure Growth Status 01/30/17 13:55 Blood Peripheral Aerobic Blood Culture - Preliminary NO GROWTH IN 1 DAY Resulted 01/30/17 13:55 Blood Peripheral Anaerobic Blood Culture - Preliminary NO GROWTH IN 1 DAY Resulted Result Diagram: 01/31/17 0350 01/31/17 0350 Imaging Last Impressions Chest X-Ray 01/30/17 1400 Signed Impressions: Service Date/Time: January 14:03 - CONCLUSION: Possible slight consolidation above the left costophrenic angle on the left. Kamrny Santamaria MD Assessment and Plan Problem List: (1) SAGE (acute kidney injury) ICD Codes: N17.9 - Acute kidney failure, unspecified Status: Acute Plan: I will order ultrasound of the kidney she appears to have obstructive symptoms from tumor mass burden however she is passing urine on diuretics as above Check uric acid Follow BMP Avoid nephrotoxins (2) Lymphoma ICD Codes: C85.90 - Non-Hodgkin lymphoma, unspecified, unspecified site Status: Acute Plan: Started on chemotherapy (3) PNA (pneumonia) ICD Codes: J18.9 - Pneumonia, unspecified organism Status: Acute Plan: On vancomycin and follow levels closely Also getting Azactam (4) Systolic CHF, acute on chronic ICD Codes: I50.23 - Acute on chronic systolic (congestive) heart failure Status: Acute Plan: On Lasix 60 mg twice a day (5) HTN (hypertension) ICD Codes: I10 - Essential (primary) hypertension Status: Chronic Plan: Continue to monitor Yobany Mcnamara MD Jan 31, 2017 11:31
--- NOTE | 2017-01-31 11:51 | EKG ---
Date Performed: 01/30/2017 Time Performed: 13:31:25 PTAGE: 66 years EKG: ELECTRONIC VENTRICULAR PACEMAKER ABNORMAL RHYTHM ECG PREVIOUS TRACING : 01/09/2017 22.19 No significant change from previous tracing noted. DOCTOR: Gui Buitrago Interpretating Date/Time 01/31/2017 11:49:27
[2017-01-31 12:34] LABS: AUTOMATED NEUTROPHIL # 3.1 TH/MM3 (1.8-7.7); EOSINOPHIL # 0.1 TH/MM3 (0-0.4); EOSINOPHIL % 1.9 % (0.0-4.0); LYMPH % 3.9 % (9.0-44.0); LYMPHOCYTE # 0.2 TH/MM3 (1.0-4.8); MEAN CELL VOLUME 92.9 FL (80.0-100.0); MEAN CORPUSCULAR HEMOGLOBIN 31.4 PG (27.0-34.0); MEAN CORPUSCULAR HGB CONC 33.8 % (32.0-36.0); MONO % 14.4 % (0.0-8.0); NEUT % 78.8 % (16.0-70.0); PLATELET COUNT 72 TH/MM3 (150-450); RED BLOOD COUNT 3.01 MIL/MM3 (4.00-5.30); RED CELL DISTRIBUTION WIDTH 16.4 % (11.6-17.2); WHITE BLOOD COUNT 3.9 TH/MM3 (4.0-11.0)
[2017-01-31 12:37] LABS: HEMO FLAGS AUTO DIFF
--- NOTE | 2017-01-31 13:40 | PD.ID.CON ---
History of Present Illness Service ID Consult Requested By Bridget. Reason for Consult Evaluation and management of pneumonia and neutropenic patient. Primary Care Physician Lane Mayberry MD Diagnoses: History of Present Illness is a 66 y/o CF with past medical history significant for aortic valve regurgitation status post redo aortic valve replacement surgeries, B-cell lymphoma non-Hodgkin's status post chemotherapy last chemotherapy approximately 2 weeks back. Past medical history is also significant for CHF, TIA, hypertension. She presents to the hospital with complaints of increasing shortness of breath and generalized edema. Patient stated that she completed chemotherapy has been neutropenic but has not received any Neupogen in the interim. Patient reports that she started feeling bilateral lower extremity edema as well as shortness of breath and mental primary care physician who increased her Lasix and metolazone. Patient reports that she had a 2-D echo a week or 2 prior to her last chemotherapy in January 07 and was told by Dr. Buitrago her patcher that her heart was okay. About 2 days ago patient had increasing shortness of breath, cough nonproductive , dry. She was seen by her primary care doctor and has increased her Lasix from 40 twice a day to 3 times a day but patient continues to feel the same and has worsening shortness of breath. Patient also complains of right lower quadrant pain, 10 over 10 one it is painful, intermittent, sharp, localized does not radiate anywhere, does know what aggravates or relieves it. Otherwise , denies fevers, chills, nausea, vomiting, diarrhea. Denies any abdominal pain or abdominal cramping complaints of constipation. Denies chest pain, palpitations, headaches. Denies any dysuria, hematuria. ID consulted for evaluation of pneumonia in a neutropenic patient. Review of Systems Constitutional: COMPLAINS OF: Weight gain, DENIES: Diaphoretic episodes, Fatigue, Fever, Weight loss, Chills, Dizziness, Change in appetite, Night Sweats Endocrine: DENIES: Abnorml menstrual pattern, Heat/cold intolerance, Polydipsia , Polyuria, Polyphagia Eyes: DENIES: Blurred vision, Diplopia, Eye inflammation, Eye pain, Vision loss , Photosensitivity, Double Vision Ears, nose, mouth, throat: DENIES: Tinnitus, Hearing loss, Vertigo, Nasal discharge, Oral lesions, Throat pain, Hoarseness, Ear Pain, Running Nose, Epistaxis, Sinus Pain, Toothache, Odynophagia Respiratory: DENIES: Apneas, Cough, Snoring, Wheezing, Hemoptysis, Sputum production, Shortness of breath Cardiovascular: COMPLAINS OF: Dyspnea on Exertion, Lower Extremity Edema, Orthopnea, DENIES: Chest pain, Palpitations, Syncope, PND, Claudication Gastrointestinal: DENIES: Abdominal pain, Black stools, Bloody stools, Constipation, Diarrhea, Nausea, Vomiting, Difficulty Swallowing, Anorexia Genitourinary: DENIES: Abnormal vaginal bleeding, Dysmenorrhea, Dyspareunia, Sexual dysfunction, Urinary frequency, Urinary incontinence, Urgency, Hematuria , Dysuria, Nocturia, Vaginal discharge Musculoskeletal: DENIES: Joint pain, Muscle aches, Stiffness, Joint Swelling, Back pain, Neck pain Integumentary: DENIES: Abnormal pigmentation, Pruritus, Rash, Nail changes, Breast masses, Breast skin changes, Nipple discharge Hematologic/lymphatic: DENIES: Bruising, Lymphadenopathy Immunologic/allergic: DENIES: Eczema, Urticaria Neurologic: DENIES: Abnormal gait, Headache, Localized weakness, Paresthesias, Seizures, Speech Problems, Tremor, Poor Balance Psychiatric: DENIES: Anxiety, Confusion, Mood changes, Depression, Hallucinations, Agitation, Suicidal Ideation, Homicidal Ideation, Delusions Except as stated in HPI: all other systems reviewed are Neg Past Family Social History Allergies: Coded Allergies: ampicillin (Verified Allergy, Severe, Hives, 01/31/17) aspirin (Verified Allergy, Severe, Hives, 01/31/17) cashew nut (Verified Allergy, Severe, Anaphylaxis, 01/31/17) ciprofloxacin (Verified Allergy, Severe, Hives, 01/31/17) doxycycline (Verified Allergy, Severe, Anaphylaxis, 01/31/17) erythromycin base (Verified Allergy, Severe, Anaphylaxis, 01/31/17) iodine (Verified Allergy, Severe, Shortness of Breath, 01/31/17) minocycline (Verified Allergy, Severe, Anaphylaxis, 01/31/17) morphine (Verified Allergy, Severe, Anaphylaxis, 01/31/17) penicillin G (Verified Allergy, Severe, Hives, 01/31/17) potassium iodide (Verified Allergy, Severe, Shortness of Breath, 01/31/17) povidone-iodine (Verified Allergy, Severe, Shortness of Breath, 01/31/17) sodium iodide (Verified Allergy, Severe, Shortness of Breath, 01/31/17) sodium iodide (Verified Allergy, Severe, Shortness of Breath, 01/31/17) tigecycline (Verified Allergy, Severe, Anaphylaxis, 01/31/17) acetaminophen (Verified Allergy, Unknown, Hives, 01/31/17) bee venom protein (honey bee) (Verified Allergy, Unknown, Shortness of Breath, 01/31/17) cephalexin (Verified Allergy, Unknown, Hives, 01/31/17) codeine (Verified Allergy, Unknown, Hives, 01/31/17) diclofenac (Verified Allergy, Unknown, Hives, 01/31/17) etodolac (Verified Allergy, Unknown, Hives, 01/31/17) flurbiprofen (Verified Allergy, Unknown, Hives, 01/31/17) gentamicin (Verified Allergy, Unknown, Hives, 01/31/17) indomethacin (Verified Allergy, Unknown, Hives, 01/31/17) ketoprofen (Verified Allergy, Unknown, Hives, 01/31/17) ketorolac (Verified Allergy, Unknown, Hives, 01/31/17) metronidazole (Verified Allergy, Unknown, Hives, 01/31/17) naproxen (Verified Allergy, Unknown, Hives, 01/31/17) oxaprozin (Verified Allergy, Unknown, Hives, 01/31/17) oxycodone (Verified Allergy, Unknown, Hives, 01/31/17) propoxyphene (Verified Allergy, Unknown, Hives, 01/31/17) Uncoded Allergies: KEFLIN (Allergy, Severe, Hives, 12/16/16) Past Medical History HTN Aortic valve disease. reports [place]. Gout CHF Lymphoma B-cell non-Hodgkin TIA 3 Kidney stone melanoma Diabetes Past Surgical History Appendectomy AV valve replacement, [facility] valve in 1986, mechanical valve on Coumadin Back surgery L3 to L5 fusion Cataract removal Cholecystectomy Pacemaker placement - [facility] Model #[id number] Resection of melanoma 2011 Right breast lumpectomy 2012 Tonsillectomy Tubal ligation Hysterectomy 1989 Reported Medications Reported Meds & Active Scripts Active Reported Ondansetron HCl 4 Mg Tab 4 Mg PO BID Allopurinol 300 Mg Tab 300 Mg PO DAILY Magnesium (Magnesium Oxide) 400 Mg Tablet BID Tylenol Extra Strength (Acetaminophen) 500 Mg Tablet 1,000 QID Vitamin D3 (Cholecalciferol) 2,000 Unit Cap 2,000 Units PO DAILY Tizanidine (Tizanidine HCl) 4 Mg Tab 4 Mg PO HS Singulair (Montelukast Sodium) 10 Mg Tab 10 Mg PO HS Omeprazole 20 Mg Tab 20 Mg PO BID Metoprolol Tartrate 25 Mg Tab 12.5 Mg PO BID Lovastatin 10 Mg Tab 10 Mg PO 2XWEEK Lasix (Furosemide) 40 Mg Tab 40 Mg PO TID NEB Potassium Chloride ER (Potassium Chloride) 20 Meq Tab 20 Meq PO DAILY Cozaar (Losartan Potassium) 25 Mg Tab 25 Mg PO DAILY Warfarin 6 Mg Tab 6 Mg PO DAILY Baclofen 20 Mg Tab 20 Mg PO QID Active Ordered Medications Current Medications Medications (Trade) Dose Ordered Sig/Love Route Start Time Stop Time Status Last Admin Aztreonam 2000 mg/ Sodium Chloride 100 ml @ 200 mls/hr Q8H IV 01/31/17 00:00 01/31/17 09:36 Pharmacy Profile Note 0 ml @ 0 mls/hr UNSCH OTHER 01/30/17 15:45 (NS Flush) 2 ml UNSCH PRN IV FLUSH 01/30/17 15:45 (NS Flush) 2 ml BID IV FLUSH 01/30/17 21:00 01/30/17 21:38 (Narcan Inj) 0.4 mg UNSCH PRN IV 01/30/17 15:45 (Cassidy-Colace) 1 tab BID PO 01/30/17 21:00 01/30/17 21:38 (Milk Of Magnesia Liq) 30 ml Q12H PRN PO 01/30/17 15:45 (Senokot) 17.2 mg Q12H PRN PO 01/30/17 15:45 (Dulcolax Supp) 10 mg DAILY PRN RECTAL 01/30/17 15:45 (Ultram) 50 mg Q6H PRN PO 01/30/17 15:45 Future hold 01/31/17 03:57 (Lasix Inj) 60 mg BID@,18 IV PUSH 01/30/17 18:00 01/31/17 16:32 Vancomycin HCl 1800 mg/Sodium Chloride 518 ml @ 250 mls/hr Q24H IV 01/31/17 17:00 01/31/17 16:32 Miscellaneous Information SPECIFIC LAB TO BE ANMOL... ONCE ONCE .XX 02/02/17 16:45 02/02/17 16:46 (Zyloprim) 300 mg DAILY PO 01/31/17 09:00 01/31/17 09:25 (Lopressor) 12.5 mg BID PO 01/30/17 21:00 01/31/17 09:25 (Coumadin) 6 mg DAILY@1600 PO 01/31/17 16:00 01/31/17 16:33 (Protonix) 20 mg BID PO 01/30/17 21:00 01/31/17 09:25 (Pill Splitter) 1 ea UNSCH PRN OTHER 01/30/17 18:30 (Zofran Inj) 4 mg Q6H PRN IV PUSH 01/31/17 03:45 01/31/17 03:48 Pharmacy Profile Note 0 ml @ 0 mls/hr UNSCH OTHER 01/31/17 13:45 Family History Father: CHF Mother: Clots Social History denies any alcohol, smoking or drugs. Reports h/o passive smoking. Physical Exam Vital Signs Vital Signs Date Time Temp Pulse Resp B/P (MAP) Pulse Ox O2 Delivery O2 Flow Rate FiO2 01/31/17 08:00 96.2 60 18 139/61 (87) 98 01/31/17 04:00 96.8 60 16 106/52 (70) 98 01/31/17 00:00 60 01/31/17 00:00 97.0 60 18 91/53 (66) 99 01/30/17 21:30 58 01/30/17 20:00 96.7 62 18 123/60 (81) 98 01/30/17 18:20 96.3 61 18 179/74 (109) 100 01/30/17 17:25 60 20 165/78 (107) 99 Room Air 01/30/17 16:00 62 20 174/75 (108) 99 Room Air Physical Exam GENERAL: Obese, well-developed patient, in no apparent distress. SKIN: No rashes, ecchymoses or lesions. Cool and dry. HEAD: Atraumatic. Normocephalic. No temporal or scalp tenderness. EYES: Pupils equal round and reactive. Extraocular motions intact. No scleral icterus. No injection or drainage. ENT: Nose without bleeding, purulent drainage or septal hematoma. Throat without erythema, tonsillar hypertrophy or exudate. Uvula midline. Airway patent. NECK: Trachea midline. Supple, nontender, no meningeal signs. CARDIOVASCULAR: Regular rate and rhythm without murmurs, gallops, or rubs. RESPIRATORY: Clear to auscultation. Breath sounds equal bilaterally. No wheezes , rales, or rhonchi. GASTROINTESTINAL: Abdomen soft, non-tender, nondistended. MUSCULOSKELETAL: Lymphedema, pitting edema. NEUROLOGICAL: Awake and alert. Grossly non focal Psych: cooperative IV line sites with no e.o infection. Laboratory Laboratory Tests Test 01/30/17 13:45 01/30/17 13:55 01/30/17 14:00 01/30/17 20:14 White Blood Count 1.9 Red Blood Count 4.59 Hemoglobin 14.1 Hematocrit 43.0 Mean Corpuscular Volume 93.7 Mean Corpuscular Hemoglobin 30.8 Mean Corpuscular Hemoglobin Concent 32.8 Red Cell Distribution Width 16.9 Platelet Count 51 Mean Platelet Volume 7.8 Neutrophils (%) (Auto) 82.8 Lymphocytes (%) (Auto) 3.2 Monocytes (%) (Auto) 11.5 Eosinophils (%) (Auto) 1.7 Basophils (%) (Auto) 0.8 Neutrophils # (Auto) 1.6 Lymphocytes # (Auto) 0.1 Monocytes # (Auto) 0.2 Eosinophils # (Auto) 0.0 Basophils # (Auto) 0.0 CBC Comment AUTO DIFF Differential Total Cells Counted 100 Neutrophils % (Manual) 79 Band Neutrophils % 2 Lymphocytes % 2 Monocytes % 14 Eosinophils % 1 Basophils % 2 Neutrophils # (Manual) 1.5 Differential Comment FINAL DIFF MANUAL Platelet Estimate LOW Platelet Morphology Comment NORMAL Blood Urea Nitrogen 26 Creatinine 1.12 Random Glucose 127 Total Protein 6.1 Albumin 3.3 Calcium Level 8.5 Alkaline Phosphatase 115 Aspartate Amino Transf (AST/SGOT) 22 Alanine Aminotransferase (ALT/SGPT) 17 Total Bilirubin 0.6 Sodium Level 140 Potassium Level 4.1 Chloride Level 106 Carbon Dioxide Level 26.1 Anion Gap 8 Estimat Glomerular Filtration Rate 49 B-Type Natriuretic Peptide 113 Lipase 127 Lactic Acid Level 0.8 Urine Color LIGHT-YELLOW Urine Turbidity CLEAR Urine pH 6.0 Urine Specific [place] 1.008 Urine Protein NEG Urine Glucose (UA) NEG Urine Ketones NEG Urine Occult Blood NEG Urine Nitrite NEG Urine Bilirubin NEG Urine Urobilinogen LESS THAN 2.0 Urine Leukocyte Esterase NEG Urine RBC LESS THAN 1 Urine WBC LESS THAN 1 Urine Squamous Epithelial Cells <1 Microscopic Urinalysis Comment CULT NOT INDICATED Prothrombin Time 21.4 Prothromb Time International Ratio 1.9 Activated Partial Thromboplast Time 36.4 Total Creatine Kinase 34 Troponin I 0.02 Test 01/31/17 03:50 01/31/17 12:05 White Blood Count 3.3 3.9 Red Blood Count 2.74 3.01 Hemoglobin 8.6 9.4 Hematocrit 25.5 28.0 Mean Corpuscular Volume 93.2 92.9 Mean Corpuscular Hemoglobin 31.4 31.4 Mean Corpuscular Hemoglobin Concent 33.6 33.8 Red Cell Distribution Width 16.6 16.4 Platelet Count 61 72 Mean Platelet Volume 8.3 8.2 Neutrophils (%) (Auto) 75.8 78.8 Lymphocytes (%) (Auto) 4.5 3.9 Monocytes (%) (Auto) 15.8 14.4 Eosinophils (%) (Auto) 2.5 1.9 Basophils (%) (Auto) 1.4 1.0 Neutrophils # (Auto) 2.5 3.1 Lymphocytes # (Auto) 0.1 0.2 Monocytes # (Auto) 0.5 0.6 Eosinophils # (Auto) 0.1 0.1 Basophils # (Auto) 0.0 0.0 CBC Comment AUTO DIFF AUTO DIFF Differential Comment AUTO DIFF CONFIRMED Platelet Estimate LOW Platelet Morphology Comment NORMAL Prothrombin Time 21.3 Prothromb Time International Ratio 1.9 Blood Urea Nitrogen 26 Creatinine 1.11 Random Glucose 95 Calcium Level 8.6 Sodium Level 143 Potassium Level 4.0 Chloride Level 111 Carbon Dioxide Level 26.7 Anion Gap 5 Estimat Glomerular Filtration Rate 49 Uric Acid 4.3 Date/Time Source Procedure Growth Status 01/30/17 13:55 Blood Peripheral Aerobic Blood Culture - Preliminary NO GROWTH IN 1 DAY Resulted 01/30/17 13:55 Blood Peripheral Anaerobic Blood Culture - Preliminary NO GROWTH IN 1 DAY Resulted Result Diagram: 01/31/17 1205 01/31/17 0350 Imaging Last Impressions Chest X-Ray 01/30/17 1400 Signed Impressions: Service Date/Time: , January 30, 2017 14:03 - CONCLUSION: Possible slight consolidation above the left costophrenic angle on the left. KGarret Santamaria MD Assessment and Plan Assessment and Plan Pneumonia Neutropenic on presentation. Lymphoma last chemo almost 2 weeks back. Immune compromised. Multiple Antibiotic allergies. CHF, pacemaker in place. AVR mechanical Right abdominal pain H/o renal stones Recs: DC Azactam DC Vanco IV DC flagyl Follow clinically without antibiotics. CXR ? fluid related rather than PNA based on history. Check UA Follow US abdomen:kidney:if normal and clinically doing well ok to discharge on oral antibiotics. Follow cultures Follow clinically. covering for me and will see pt in am. Leslie Bustillo MD Jan 31, 2017 13:40
[2017-01-31 13:57] LABS: SCAN/DIFF AUTO DIFF CONFIRMED
--- NOTE | 2017-01-31 14:00 | HHI.PR ---
Subjective Remarks Still having cough not much of a phlegm No fever or chills Hemoglobin dropped from 14-8 and then up to 9.4, platelet at 72 She stated legs edema are going down she urinate profusely Objective Vitals Vital Signs Date Time Temp Pulse Resp B/P (MAP) Pulse Ox O2 Delivery O2 Flow Rate FiO2 01/31/17 08:00 96.2 60 18 139/61 (87) 98 01/31/17 04:00 96.8 60 16 106/52 (70) 98 01/31/17 00:00 60 01/31/17 00:00 97.0 60 18 91/53 (66) 99 01/30/17 21:30 58 01/30/17 20:00 96.7 62 18 123/60 (81) 98 01/30/17 18:20 96.3 61 18 179/74 (109) 100 01/30/17 17:25 60 20 165/78 (107) 99 Room Air 01/30/17 16:00 62 20 174/75 (108) 99 Room Air I/O 01/30/17 01/30/17 01/30/17 01/31/17 01/31/17 01/31/17 06:59 14:59 22:59 06:59 14:59 22:59 Intake Total 100 ml 620 ml Output Total 500 ml 200 ml Balance -400 ml 420 ml Intake IV Total 100 ml 620 ml Output Urine Total 500 ml 200 ml # Bowel Movements 0 Result Diagram: 01/31/17 1205 01/31/17 0350 Imaging Last Impressions Chest X-Ray 01/30/17 1400 Signed Impressions: Service Date/Time: January 14:03 - CONCLUSION: Possible slight consolidation above the left costophrenic angle on the left. Kamryn Santamaria MD Objective Remarks GENERAL: This is a well-nourished, well-developed patient, short of breath. SKIN: Warm and dry. Bilateral lower extremity with pink color discoloration stasis appearing. HEAD: Atraumatic. Normocephalic. EYES: Pupils equal round and reactive. Extraocular motions intact. No scleral icterus. No injection or drainage. ENT: Nose without bleeding. Throat without erythema. Uvula midline. Airway patent. NECK: Trachea midline. Positive JVD. Supple. CARDIOVASCULAR: Regular rate and rhythm with 3-4 systolic murmurs heard loudest in the R sternal border, no gallops, or rubs. RESPIRATORY: Crackles on the left middle lobe. No wheezing. GASTROINTESTINAL: Abdomen soft, distended. Right lower quadrant tenderness to palpation. Bowel sounds active 4. Anasarca. MUSCULOSKELETAL: Extremities without clubbing, cyanosis, bilateral lower extremity edema +3. NEUROLOGICAL: Awake and alert. Moves all extremity. Normal speech.no focal neurological deficit A/P Problem List: (1) Lymphoma ICD Code: C85.90 - Non-Hodgkin lymphoma, unspecified, unspecified site Status: Acute (2) Systolic CHF, acute on chronic ICD Code: I50.23 - Acute on chronic systolic (congestive) heart failure Status: Acute (3) HTN (hypertension) ICD Code: I10 - Essential (primary) hypertension Status: Chronic (4) SAGE (acute kidney injury) ICD Code: N17.9 - Acute kidney failure, unspecified Status: Acute (5) PNA (pneumonia) ICD Code: J18.9 - Pneumonia, unspecified organism Status: Acute Assessment and Plan 01/31: Patient diuresing well, appreciate nephrology and oncology consultation, kidney ultrasound ordered, but continue monitoring BMP, creatinine still at the 1.12> 1.11, hemoglobin dropped from 14-9.4, at 72 expected due to chemotherapy A/P: Patient is a 66-year-old female with primary medical history of B- cell lymphoma non-Hodgkin's, status post chemotherapy, CHF, TIA, HTN who came into the hospital for complaints of increasing shortness of breath and generalized edema. Pneumonia, Community Acquired Immunocompromised, S/P Chemotherapy - Increasing SOB, cough, Leukocytopenia WBC 1.9 - Chest x-ray showed possible slight consolidation above the left costophrenic angle on the left - Start IV antibiotic vancomycin, aztreonam, Flagyl - Infectious disease consult appreciate input - Monitor respiratory status systolic CHF exacerbation - Bilateral lower extremity edema +3, anasarca secondary to CHF possibly be worsening post chemotherapy - 2-D echo - Lasix IV 60 mg twice a day - Strict I's and O's Acute kidney injury - Creatinine 1.12 - Consult nephrology input appreciated - Avoid nephrotoxins - Trend kidney indices RLQ Abdominal Pain - Complaints of constipation. Possible gas. - MOM, Duculax, Sennakot - Will consider CT of the abdomen and pelvis if pain is worsening or has not resolved HTN PPM Mechanical valve - Patient on Coumadin at home. Monitor INR - Hold losartan for now, as Lasix is given at an increased dose. Metoprolol 12.5 mg twice a day - Monitor BP trend DVT prop Coumadin Yvette Dias MD Jan 31, 2017 14:00
--- NOTE | 2017-01-31 15:12 | ECHRPT ---
Indication: EF assessment of CHF CONCLUSIONS The left ventricular systolic function is moderately reduced with an estimated ejection fraction in the range of 40-45%. Normal left ventricular size. Wall thickness is normal. No regional wall motion abnormalities are present. Mechanical valve BP: 106 / 52 HR: 60 Rhythm: Sinus MEASUREMENTS (Male / Female) Normal Values Technical Quality:Fair 2D ECHO LV Diastolic Diameter PLAX 4.6 cm 4.2 - 5.9 / 3.9 - 5.3 cm LV Systolic Diameter PLAX 3.6 cm IVS Diastolic Thickness 1.3 cm 0.6 - 1.0 / 0.6 - 0.9 cm LVPW Diastolic Thickness 1.4 cm 0.6 - 1.0 / 0.6 - 0.9 cm LV Relative Wall Thickness 0.6 LV Ejection Fraction MOD 4C 43.3 % LV Cardiac Index MOD 4C 1138.2 cm/minm LV Ejection Fraction 4C AL 45.1 % LV Cardiac Index 4C AL 1231.5 cm/minm DOPPLER TR Peak Velocity 249.0 cm/s TR Peak Gradient 24.8 mmHg FINDINGS LEFT VENTRICLE The left ventricular systolic function is moderately reduced with an estimated ejection fraction in the range of 40-45%. Normal left ventricular size. Wall thickness is normal. No regional wall motion abnormalities are present. AORTIC VALVE Mechanical valve Dominic López MD (Electronically Signed) Final Date:31 January 2017 15:11
[2017-01-31] MEDS: WARFARIN SOD 6 MG TAB PO SCH (16:33)
[2017-01-31] MEDS ORDERED: VANCOMYCIN INJ 1,800 MG in SODIUM CHLORID 0.9% 500 ML INJ 500 ML IV SCH (17:00)
[2017-01-31 18:32] LABS: BACTERIA, URINE OCC /hpf; BLOOD, URINE MOD (NEG); COMMENT (UR) CULT NOT INDICATED; CULTURE IF INDICATED CULT NOT INDICATED; GLUCOSE,URINE NEG (NEG); KETONE, URINE NEG (NEG); NITRITE,URINE NEG (NEG); PH, URINE 5.5 (5.0-8.5); SQUAMOUS EPITHELIAL CELL URINE <1 /hpf (0-5); URINE COLOR LIGHT-YELLOW (YELLW/STRAW)
--- NOTE | 2017-01-31 21:20 | RADRPT ---
EXAM DATE/TIME: 01/31/2017 19:26 [place] COMPARISON: No previous studies available for comparison. [facility] : [facility]EL[facility] W/O CONTRAST, November 13, 2016 INDICATIONS : Increased BUN/creatinine. MEDICAL HISTORY : Congestive heart failure. Renal calculi. Bilateral cataracts. Multiple sclerosis. TIA x3. Aortic va lve regurgitation. Bradycardia. HTN. Asthma. Dypsnea. GERD. Diabetes. Skin cancer. Renal disease. Hem aturia. Anxiety. Anticoagulant therapy, Warfarin. SURGICAL HISTORY : Pacemaker. Appendectomy. Cholecystectomy. Aortic valve replacement. Chocolate cyst removal. Left ovar y removed. Hysterectomy. Back surgery. Blood transfusions. Chemotherapy. ENCOUNTER: Initial ACUITY: 1 day PAIN SCORE: 3/10 LOCATION: Bilateral flank MEASUREMENTS: RIGHT KIDNEY: 9.7 x 6.2 x 5.1 cm LEFT KIDNEY: 9.7 x 5.5 x 4.7 cm FINDINGS: No hydronephrosis. Kidneys mildly echogenic characteristic of medical renal disease. Ascites. Spleen mildly enlarged and nonobstructing calcification lower pole left kidney. CONCLUSION: 1. Kidneys mildly echogenic characteristic of medical renal disease. No hydronephrosis. Nonobstructin g linear calcification lower pole left kidney. Mild ascites. Pelon Mata MD on January 31, 2017 at 21:16 Board Certified Radiologist. This report was verified electronically.
[2017-02-01] VITALS (9 sets, daily range): BP systolic 126–145; BP diastolic 59–64; PULSE 59–60; RESP 16–20; TEMP 96.3–97.4; O2SAT 94–100
[2017-02-01 05:21] LABS: AUTOMATED NEUTROPHIL # 3.6 TH/MM3 (1.8-7.7); BASOPHIL % 0.8 % (0.0-2.0); EOSINOPHIL # 0.1 TH/MM3 (0-0.4); HEMATOCRIT 27.5 % (35.0-46.0); LYMPH % 4.6 % (9.0-44.0); LYMPHOCYTE # 0.2 TH/MM3 (1.0-4.8); MEAN CELL VOLUME 92.2 FL (80.0-100.0); MEAN CORPUSCULAR HEMOGLOBIN 30.9 PG (27.0-34.0); MEAN CORPUSCULAR HGB CONC 33.6 % (32.0-36.0); MONO % 15.1 % (0.0-8.0); NEUT % 76.5 % (16.0-70.0); PLATELET COUNT 79 TH/MM3 (150-450); RED BLOOD COUNT 2.99 MIL/MM3 (4.00-5.30); RED CELL DISTRIBUTION WIDTH 16.4 % (11.6-17.2); WHITE BLOOD COUNT 4.7 TH/MM3 (4.0-11.0)
[2017-02-01 05:28] LABS: INTERNATIONAL NORMALIZED RATIO 1.7 RATIO; PROTHROMBIN TIME - PATIENT 19.1 SEC (9.8-11.6)
[2017-02-01 05:30] LABS: HEMO FLAGS AUTO DIFF
[2017-02-01 05:47] LABS: BICARBONATE 27.7 MEQ/L (21.0-32.0); POTASSIUM 4.1 MEQ/L (3.5-5.1)
[2017-02-01] MEDS ORDERED: AZITHROMYCIN 250 MG TAB PO SCH (09:00)
[2017-02-01 09:02] LABS: OVALOCYTES 1+ (NORMAL); PLATELET ESTIMATE SMEAR LOW (NORMAL); PLATELET MORPHOLOGY NORMAL (NORMAL); SCAN/DIFF AUTO DIFF CONFIRMED
[2017-02-01] MEDS: ALLOPURINOL 300 MG TAB PO SCH (09:23)
[2017-02-01] MEDS: METOPROLOL TARTRATE 25 MG TAB PO SCH ×2 (09:23→20:23)
[2017-02-01] MEDS: DOCUSATE SODIUM 50 MG/SENNA 8.6 MG TAB PO SCH ×2 (09:23→20:23)
[2017-02-01] MEDS: PANTOPRAZOLE SOD 20 MG DELAYED RELEASE TAB PO SCH ×2 (09:23→20:23)
[2017-02-01] MEDS: SODIUM CHLORIDE 0.9% FLUSH 10 ML FLUSH IV FLUSH SCH ×2 (09:23→20:25)
[2017-02-01] MEDS: FUROSEMIDE 40 MG/4 ML VIAL IV PUSH SCH ×2 (09:23→17:24)
--- NOTE | 2017-02-01 10:45 | PD.ONC.PN ---
Subjective Subjective Remarks Afebrile Had some SOB while lying on L side but this has stopped No other acute complaints Objective Data Date Time Temp Pulse Resp B/P (MAP) Pulse Ox O2 Delivery O2 Flow Rate FiO2 02/01/17 05:34 96.8 60 17 135/60 (85) 94 02/01/17 01:13 96.5 59 18 126/63 (84) 98 01/31/17 21:57 96.4 59 18 126/63 (84) 98 01/31/17 20:20 60 01/31/17 16:00 96.5 62 18 130/59 (82) 100 01/31/17 12:00 96.8 60 18 133/62 (85) 100 Result Diagram: 02/01/17 0500 02/01/17 0500 Laboratory Results Laboratory Tests Test 01/31/17 12:05 01/31/17 18:05 02/01/17 05:00 White Blood Count 3.9 TH/MM3 4.7 TH/MM3 Red Blood Count 3.01 MIL/MM3 2.99 MIL/MM3 Hemoglobin 9.4 GM/DL 9.2 GM/DL Hematocrit 28.0 % 27.5 % Mean Corpuscular Volume 92.9 FL 92.2 FL Mean Corpuscular Hemoglobin 31.4 PG 30.9 PG Mean Corpuscular Hemoglobin Concent 33.8 % 33.6 % Red Cell Distribution Width 16.4 % 16.4 % Platelet Count 72 TH/MM3 79 TH/MM3 Mean Platelet Volume 8.2 FL 7.6 FL Neutrophils (%) (Auto) 78.8 % 76.5 % Lymphocytes (%) (Auto) 3.9 % 4.6 % Monocytes (%) (Auto) 14.4 % 15.1 % Eosinophils (%) (Auto) 1.9 % 3.0 % Basophils (%) (Auto) 1.0 % 0.8 % Neutrophils # (Auto) 3.1 TH/MM3 3.6 TH/MM3 Lymphocytes # (Auto) 0.2 TH/MM3 0.2 TH/MM3 Monocytes # (Auto) 0.6 TH/MM3 0.7 TH/MM3 Eosinophils # (Auto) 0.1 TH/MM3 0.1 TH/MM3 Basophils # (Auto) 0.0 TH/MM3 0.0 TH/MM3 CBC Comment AUTO DIFF AUTO DIFF Differential Comment AUTO DIFF CONFIRMED AUTO DIFF CONFIRMED Uric Acid 4.3 MG/DL Urine Color LIGHT-YELLOW Urine Turbidity CLEAR Urine pH 5.5 Urine Specific Mchenry 1.006 Urine Protein NEG mg/dL Urine Glucose (UA) NEG mg/dL Urine Ketones NEG mg/dL Urine Occult Blood MOD Urine Nitrite NEG Urine Bilirubin NEG Urine Urobilinogen LESS THAN 2.0 MG/DL Urine Leukocyte Esterase NEG Urine RBC 1 /hpf Urine Squamous Epithelial Cells <1 /hpf Urine Bacteria OCC /hpf Microscopic Urinalysis Comment CULT NOT INDICATED Platelet Estimate LOW Platelet Morphology Comment NORMAL Ovalocytes 1+ Prothrombin Time 19.1 SEC Prothromb Time International Ratio 1.7 RATIO Blood Urea Nitrogen 24 MG/DL Creatinine 1.08 MG/DL Random Glucose 109 MG/DL Calcium Level 8.8 MG/DL Sodium Level 144 MEQ/L Potassium Level 4.1 MEQ/L Chloride Level 110 MEQ/L Carbon Dioxide Level 27.7 MEQ/L Anion Gap 6 MEQ/L Estimat Glomerular Filtration Rate 51 ML/MIN Culture Results Microbiology Date/Time Source Procedure Growth Status 01/30/17 13:55 Blood Peripheral Aerobic Blood Culture - Preliminary NO GROWTH IN 1 DAY Resulted 01/30/17 13:55 Blood Peripheral Anaerobic Blood Culture - Preliminary NO GROWTH IN 1 DAY Resulted 01/30/17 13:45 Blood Peripheral Aerobic Blood Culture - Preliminary NO GROWTH IN 1 DAY Resulted 01/30/17 13:45 Blood Peripheral Anaerobic Blood Culture - Preliminary NO GROWTH IN 1 DAY Resulted Administered Medications Medications (Trade) Dose Ordered Sig/Love Route PRN Reason Start Time Stop Time Status Last Admin Dose Admin Sodium Chloride (NS Flush) 2 ml BID IV FLUSH 01/30/17 21:00 02/01/17 09:23 Senna/Docusate Sodium (Cassidy-Colace) 1 tab BID PO 01/30/17 21:00 01/30/17 21:38 Tramadol HCl (Ultram) 50 mg Q6H PRN PO pain 1-10 01/30/17 15:45 Future hold 01/31/17 22:27 Furosemide (Lasix Inj) 60 mg BID@ IV PUSH 01/30/17 18:00 02/01/17 09:23 Allopurinol (Zyloprim) 300 mg DAILY PO 01/31/17 09:00 02/01/17 09:23 Metoprolol Tartrate (Lopressor) 12.5 mg BID PO 01/30/17 21:00 02/01/17 09:23 Warfarin Sodium (Coumadin) 6 mg DAILY@1600 PO 01/31/17 16:00 01/31/17 16:33 Pantoprazole Sodium (Protonix) 20 mg BID PO 01/30/17 21:00 02/01/17 09:23 Ondansetron HCl (Zofran Inj) 4 mg Q6H PRN IV PUSH nausea 01/31/17 03:45 01/31/17 22:34 Objective Remarks GENERAL: Older female resting in bed watching TV in no acute distress SKIN: Warm and dry. HEAD: Normocephalic. EYES: No injection or drainage. NECK: Supple, trachea midline. CARDIOVASCULAR: Regular rate and rhythm without murmurs. RESPIRATORY: Clear posteriorly. Breathing unlabored. GASTROINTESTINAL: Abdomen soft, non-tender, nondistended. EXTREMITIES: No cyanosis, generalized edema bilateral lower extremities NEUROLOGICAL: No obvious focal deficit. Awake, alert, and oriented x3. Assessment/Plan Problem List: (1) Lymphoma ICD Codes: C85.90 - Non-Hodgkin lymphoma, unspecified, unspecified site Status: Acute Plan: 02/01/17: Counts recovering. Okay for discharge from oncology standpoint. 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 She originally presented with a large mass in the mesentery. She was admitted for lower extremity edema and a nonproductive cough with shortness of breath. Chest x-ray showed a left lower lobe infiltrate and possible pneumonia. (2) PNA (pneumonia) ICD Codes: J18.9 - Pneumonia, unspecified organism Status: Acute Plan: -- Chest x-ray shows slight consolidation in the left lower lobe -- Per infectious disease all antibiotics were stopped on 01/31. Assessment 66 y/o female with history of non-Hodgkin's lymphoma admitted with pneumonia. Attending Statement anxious to go home. No C/O offer Ok to d/c will follow as outpt. The exam, history, and the medical decision-making described in the above note were completed with the assistance of the mid-level provider. I reviewed and agree with the findings presented. I attest that I had a [id number] encounter with the patient on the same day, and personally performed and documented my assessment and findings in the medical record. Jaz Cody Feb 01, 2017 10:45 Jeanette Lyon MD Feb 01, 2017 18:45
--- NOTE | 2017-02-01 12:56 | HHI.PR ---
Subjective Remarks Mrs. Bertrand denied fever or chills today, she still have ulcerative of without phlegm production WBC improved to 4.7, creatinine improved to 1.08, platelet stable at 79, hemoglobin 9.2, INR is 1.7 pharmacy following Objective Vitals Vital Signs Date Time Temp Pulse Resp B/P (MAP) Pulse Ox O2 Delivery O2 Flow Rate FiO2 02/01/17 12:04 60 02/01/17 08:11 60 02/01/17 07:50 97.4 60 20 145/64 (91) 96 02/01/17 05:34 96.8 60 17 135/60 (85) 94 02/01/17 01:13 96.5 59 18 126/63 (84) 98 01/31/17 21:57 96.4 59 18 126/63 (84) 98 01/31/17 20:20 60 01/31/17 16:00 96.5 62 18 130/59 (82) 100 I/O 01/31/17 01/31/17 01/31/17 02/01/17 02/01/17 02/01/17 06:59 14:59 22:59 06:59 14:59 22:59 Intake Total 620 ml 1100 ml Output Total 200 ml 200 ml Balance 420 ml 900 ml Intake Oral 1100 ml IV Total 620 ml Output Urine Total 200 ml 200 ml # Voids 3 # Bowel Movements 1 Result Diagram: 02/01/17 0500 02/01/17 0500 Objective Remarks GENERAL: This is a well-nourished, well-developed patient, short of breath. SKIN: Warm and dry. Bilateral lower extremity with pink color discoloration stasis appearing. HEAD: Atraumatic. Normocephalic. EYES: Pupils equal round and reactive. Extraocular motions intact. No scleral icterus. No injection or drainage. ENT: Nose without bleeding. Throat without erythema. Uvula midline. Airway patent. NECK: Trachea midline. Positive JVD. Supple. CARDIOVASCULAR: Regular rate and rhythm with 3-4 systolic murmurs heard loudest in the R sternal border, no gallops, or rubs. RESPIRATORY: Crackles on the left middle lobe. No wheezing. GASTROINTESTINAL: Abdomen soft, distended. Right lower quadrant tenderness to palpation. Bowel sounds active 4. Anasarca. MUSCULOSKELETAL: Extremities without clubbing, cyanosis, bilateral lower extremity edema +3. NEUROLOGICAL: Awake and alert. Moves all extremity. Normal speech.no focal neurological deficit A/P Problem List: (1) Lymphoma ICD Code: C85.90 - Non-Hodgkin lymphoma, unspecified, unspecified site Status: Acute (2) Systolic CHF, acute on chronic ICD Code: I50.23 - Acute on chronic systolic (congestive) heart failure Status: Acute (3) HTN (hypertension) ICD Code: I10 - Essential (primary) hypertension Status: Chronic (4) SAGE (acute kidney injury) ICD Code: N17.9 - Acute kidney failure, unspecified Status: Acute (5) PNA (pneumonia) ICD Code: J18.9 - Pneumonia, unspecified organism Status: Acute Assessment and Plan 01/31: Patient diuresing well, appreciate nephrology and oncology consultation, kidney ultrasound ordered, but continue monitoring BMP, creatinine still at the 1.12> 1.11, hemoglobin dropped from 14-9.4, at 72 expected due to chemotherapy 02/01:WBC improved to 4.7, creatinine improved to 1.08, platelet stable at 79, hemoglobin 9.2, INR is 1.7> extra Coumadin today A/P: Patient is a 66-year-old female with primary medical history of B- cell lymphoma non-Hodgkin's, status post chemotherapy, CHF, TIA, HTN who came into the hospital for complaints of increasing shortness of breath and generalized edema. Pneumonia, Community Acquired Immunocompromised, S/P Chemotherapy - Increasing SOB, cough, Leukocytopenia WBC 1.9 - Chest x-ray showed possible slight consolidation above the left costophrenic angle on the left - Start IV antibiotic vancomycin, aztreonam, Flagyl - Infectious disease consult appreciate input - Monitor respiratory status systolic CHF exacerbation - Bilateral lower extremity edema +3, anasarca secondary to CHF possibly be worsening post chemotherapy - 2-D echo - Lasix IV 60 mg twice a day - Strict I's and O's Acute kidney injury - Creatinine 1.12 - Consult nephrology input appreciated - Avoid nephrotoxins - Trend kidney indices RLQ Abdominal Pain - Complaints of constipation. Possible gas. - MOM, Duculax, Sennakot - Will consider CT of the abdomen and pelvis if pain is worsening or has not resolved HTN PPM Mechanical valve - Patient on Coumadin at home. Monitor INR - Hold losartan for now, as Lasix is given at an increased dose. Metoprolol 12.5 mg twice a day - Monitor BP trend DVT prop Coumadin Yvette Dias MD Feb 01, 2017 12:56
--- NOTE | 2017-02-01 16:17 | HHI.NPPN ---
Subjective History of Present Illness 66 year old with lymphoma Review of Systems Cardiovascular Cardiac: Edema, SOLORIO Objective Data Data Vital Signs Date Time Temp Pulse Resp B/P (MAP) Pulse Ox O2 Delivery O2 Flow Rate FiO2 02/01/17 12:04 60 02/01/17 08:11 60 02/01/17 07:50 97.4 60 20 145/64 (91) 96 02/01/17 05:34 96.8 60 17 135/60 (85) 94 02/01/17 01:13 96.5 59 18 126/63 (84) 98 01/31/17 21:57 96.4 59 18 126/63 (84) 98 01/31/17 20:20 60 -: 02/01/17 0500 02/01/17 0500 Physical Exam General Appearance: Well Developed, Well Nourished Neck Neck Exam: Neck Supple Pulmonary Resp Exam: Clear Bilaterally, Breath Sounds Equal Cardiology CV Exam: Regular, Normal Sinus Rhythm Gastrointestinal/Abdomen GI Exam: Soft, Non-Tender, Bowel Sounds Present Extremeties Extremities Exam: Moderate Edema Assessment/Plan Problem List: (1) SAGE (acute kidney injury) ICD Codes: N17.9 - Acute kidney failure, unspecified Status: Acute Plan: ultrasound of the kidney was discussed mild echogenicity, linear calcification left lower pole insignificant, on Lasix may change to po may dc home 40 mg daily Avoid nephrotoxins (2) Lymphoma ICD Codes: C85.90 - Non-Hodgkin lymphoma, unspecified, unspecified site Status: Acute Plan: Started on chemotherapy (3) PNA (pneumonia) ICD Codes: J18.9 - Pneumonia, unspecified organism Status: Acute Plan: On vancomycin and follow levels closely Also getting Azactam (4) Systolic CHF, acute on chronic ICD Codes: I50.23 - Acute on chronic systolic (congestive) heart failure Status: Acute Plan: On Lasix 60 mg twice a day (5) HTN (hypertension) ICD Codes: I10 - Essential (primary) hypertension Status: Chronic Plan: Continue to monitor Yobany Mcnamara MD Feb 01, 2017 16:17
[2017-02-01] MEDS: WARFARIN SOD 6 MG TAB PO SCH (17:23)
[2017-02-01] MEDS: traMADol HCL 50 MG TAB PO PRN (23:33)
[2017-02-01] MEDS: ONDANSETRON HCL 4 MG/2 ML VIAL IV PUSH PRN (23:38)
[2017-02-02] VITALS (9 sets, daily range): BP systolic 115–127; BP diastolic 57–60; PULSE 60–64; RESP 16–20; TEMP 96.1–97.4; O2SAT 96–100
[2017-02-02 06:47] LABS: INTERNATIONAL NORMALIZED RATIO 1.6 RATIO
[2017-02-02] MEDS: DOCUSATE SODIUM 50 MG/SENNA 8.6 MG TAB PO SCH ×2 (09:01→22:35)
[2017-02-02] MEDS: ALLOPURINOL 300 MG TAB PO SCH (09:01)
[2017-02-02] MEDS: FUROSEMIDE 40 MG TAB PO SCH (09:01)
[2017-02-02] MEDS: SODIUM CHLORIDE 0.9% FLUSH 10 ML FLUSH IV FLUSH SCH ×2 (09:01→22:36)
[2017-02-02] MEDS: METOPROLOL TARTRATE 25 MG TAB PO SCH ×2 (09:02→22:35)
[2017-02-02] MEDS: PANTOPRAZOLE SOD 20 MG DELAYED RELEASE TAB PO SCH ×2 (09:02→22:35)
[2017-02-02] MEDS: WARFARIN SOD 6 MG TAB PO SCH (16:15)
[2017-02-02] MEDS ORDERED: WARFARIN SOD 2.5 MG TAB PO ONE (16:45)
[2017-02-02] MEDS ORDERED: PHARMACY ORDERED LAB ONE (16:45)
--- NOTE | 2017-02-02 16:53 | HHI.PR ---
Subjective Remarks Resting in bed afebrile no acute issue Nephrology following continue iv diuresing, leg still swollen slightly better than before Objective Vitals Vital Signs Date Time Temp Pulse Resp B/P (MAP) Pulse Ox O2 Delivery O2 Flow Rate FiO2 02/02/17 16:01 60 02/02/17 15:50 96.9 60 20 115/57 (76) 98 02/02/17 11:50 96.1 60 20 123/60 (81) 98 02/02/17 11:48 60 02/02/17 08:24 60 02/02/17 07:50 96.8 60 20 127/60 (82) 100 02/02/17 04:00 97.4 61 16 126/60 (82) 96 02/02/17 00:33 18 02/02/17 00:00 97.0 64 16 124/60 (81) 98 02/01/17 20:00 96.4 60 16 129/59 (82) 98 I/O 02/01/17 02/01/17 02/01/17 02/02/17 02/02/17 02/02/17 07:00 15:00 23:00 07:00 15:00 23:00 Intake Total 1200 ml 240 ml 240 ml 1200 ml Output Total 1200 ml 1200 ml 500 ml Balance 0 ml 240 ml -960 ml 700 ml Intake Oral 1200 ml 240 ml 240 ml 1200 ml Output Urine Total 1200 ml 1200 ml 500 ml # Bowel Movements 0 0 Result Diagram: 02/01/17 0500 02/01/17 0500 Objective Remarks GENERAL: This is a well-nourished, well-developed patient, short of breath. SKIN: Warm and dry. Bilateral lower extremity with pink color discoloration stasis appearing. HEAD: Atraumatic. Normocephalic. EYES: Pupils equal round and reactive. Extraocular motions intact. No scleral icterus. No injection or drainage. ENT: Nose without bleeding. Throat without erythema. Uvula midline. Airway patent. NECK: Trachea midline. Positive JVD. Supple. CARDIOVASCULAR: Regular rate and rhythm with 3-4 systolic murmurs heard loudest in the R sternal border, no gallops, or rubs. RESPIRATORY: Crackles on the left middle lobe. No wheezing. GASTROINTESTINAL: Abdomen soft, distended. Right lower quadrant tenderness to palpation. Bowel sounds active 4. Anasarca. MUSCULOSKELETAL: Extremities without clubbing, cyanosis, bilateral lower extremity edema +3. NEUROLOGICAL: Awake and alert. Moves all extremity. Normal speech.no focal neurological deficit A/P Problem List: (1) Lymphoma ICD Code: C85.90 - Non-Hodgkin lymphoma, unspecified, unspecified site Status: Acute (2) Systolic CHF, acute on chronic ICD Code: I50.23 - Acute on chronic systolic (congestive) heart failure Status: Acute (3) HTN (hypertension) ICD Code: I10 - Essential (primary) hypertension Status: Chronic (4) SAGE (acute kidney injury) ICD Code: N17.9 - Acute kidney failure, unspecified Status: Acute (5) PNA (pneumonia) ICD Code: J18.9 - Pneumonia, unspecified organism Status: Acute Assessment and Plan 01/31: Patient diuresing well, appreciate nephrology and oncology consultation, kidney ultrasound ordered, but continue monitoring BMP, creatinine still at the 1.12> 1.11, hemoglobin dropped from 14-9.4, at 72 expected due to chemotherapy 02/01:WBC improved to 4.7, creatinine improved to 1.08, platelet stable at 79, hemoglobin 9.2, INR is 1.7> extra Coumadin today 02/02: Continue on Lasix iv, good urine output, repeat BMP in a.m., BMP today pending, if creatinine started to increase will switch Lasix iv 2 by mouth, INR 1.6>. We'll give 2.5 extra Coumadin today A/P: Patient is a 66-year-old female with primary medical history of B- cell lymphoma non-Hodgkin's, status post chemotherapy, CHF, TIA, HTN who came into the hospital for complaints of increasing shortness of breath and generalized edema. Pneumonia, Community Acquired Immunocompromised, S/P Chemotherapy - Increasing SOB, cough, Leukocytopenia WBC 1.9 - Chest x-ray showed possible slight consolidation above the left costophrenic angle on the left - Start IV antibiotic vancomycin, aztreonam, Flagyl - Infectious disease consult appreciate input - Monitor respiratory status systolic CHF exacerbation - Bilateral lower extremity edema +3, anasarca secondary to CHF possibly be worsening post chemotherapy - 2-D echo showed mildly reduced EF 40-45% - Lasix IV 60 mg twice a day - Strict I's and O's Acute kidney injury - Creatinine 1.12 - Consult nephrology input appreciated - Avoid nephrotoxins - Trend kidney indices RLQ Abdominal Pain - Complaints of constipation. Possible gas. - MOM, Duculax, Sennakot - Will consider CT of the abdomen and pelvis if pain is worsening or has not resolved HTN PPM Mechanical valve - Patient on Coumadin at home. Monitor INR - Hold losartan for now, as Lasix is given at an increased dose. Metoprolol 12.5 mg twice a day - Monitor BP trend DVT prop Coumadin Yvette Dias MD Feb 02, 2017 16:53
[2017-02-02] MEDS: traMADol HCL 50 MG TAB PO PRN (22:44)
[2017-02-02] MEDS: ONDANSETRON HCL 4 MG/2 ML VIAL IV PUSH PRN (22:44)
[2017-02-03] VITALS (7 sets, daily range): BP systolic 117–151; BP diastolic 60–92; PULSE 60–61; RESP 16–20; TEMP 96–97.7; O2SAT 97–99
[2017-02-03 04:50] LABS: INTERNATIONAL NORMALIZED RATIO 1.6 RATIO; PROTHROMBIN TIME - PATIENT 18.5 SEC (9.8-11.6)
[2017-02-03 04:57] LABS: BICARBONATE 29.5 MEQ/L (21.0-32.0); POTASSIUM 3.9 MEQ/L (3.5-5.1)
[2017-02-03] MEDS: ALLOPURINOL 300 MG TAB PO SCH (09:43)
[2017-02-03] MEDS: METOPROLOL TARTRATE 25 MG TAB PO SCH (09:43)
[2017-02-03] MEDS: DOCUSATE SODIUM 50 MG/SENNA 8.6 MG TAB PO SCH (09:43)
[2017-02-03] MEDS: PANTOPRAZOLE SOD 20 MG DELAYED RELEASE TAB PO SCH (09:43)
[2017-02-03] MEDS: FUROSEMIDE 40 MG TAB PO SCH (09:44)
[2017-02-03] MEDS: SODIUM CHLORIDE 0.9% FLUSH 10 ML FLUSH IV FLUSH SCH (09:44)
[2017-02-03] MEDS ORDERED: FURO40TA PO (13:19)
--- NOTE | 2017-02-03 13:24 | HHI.PR ---
Subjective Remarks doing well cleared by ID and nephrology, discharge home once bad weather circumstances is clear Objective Vitals Vital Signs Date Time Temp Pulse Resp B/P (MAP) Pulse Ox O2 Delivery O2 Flow Rate FiO2 02/03/17 12:34 60 02/03/17 11:50 97.7 60 20 129/60 (83) 97 02/03/17 08:17 60 02/03/17 07:50 97.2 60 20 139/63 (88) 97 02/03/17 04:00 96.0 61 16 117/92 (100) 98 02/03/17 00:00 97.0 60 16 134/61 (85) 97 02/02/17 23:44 16 02/02/17 20:00 97.3 61 18 123/58 (79) 99 02/02/17 16:01 60 02/02/17 15:50 96.9 60 20 115/57 (76) 98 I/O 02/02/17 02/02/17 02/02/17 02/03/17 02/03/17 02/03/17 07:00 15:00 23:00 07:00 15:00 23:00 Intake Total 240 ml 1200 ml 480 ml 240 ml Output Total 1200 ml 500 ml 300 ml 300 ml Balance -960 ml 700 ml 180 ml -60 ml Intake Oral 240 ml 1200 ml 480 ml 240 ml Output Urine Total 1200 ml 500 ml 300 ml 300 ml # Bowel Movements 0 1 Result Diagram: 02/01/17 0500 02/03/17 0400 Objective Remarks GENERAL: This is a well-nourished, well-developed patient, short of breath. SKIN: Warm and dry. Bilateral lower extremity with pink color discoloration stasis appearing. HEAD: Atraumatic. Normocephalic. EYES: Pupils equal round and reactive. Extraocular motions intact. No scleral icterus. No injection or drainage. ENT: Nose without bleeding. Throat without erythema. Uvula midline. Airway patent. NECK: Trachea midline. Positive JVD. Supple. CARDIOVASCULAR: Regular rate and rhythm with 3-4 systolic murmurs heard loudest in the R sternal border, no gallops, or rubs. RESPIRATORY: Crackles on the left middle lobe. No wheezing. GASTROINTESTINAL: Abdomen soft, distended. Right lower quadrant tenderness to palpation. Bowel sounds active 4. Anasarca. MUSCULOSKELETAL: Extremities without clubbing, cyanosis, bilateral lower extremity edema +3. NEUROLOGICAL: Awake and alert. Moves all extremity. Normal speech.no focal neurological deficit A/P Problem List: (1) Lymphoma ICD Code: C85.90 - Non-Hodgkin lymphoma, unspecified, unspecified site Status: Acute (2) Systolic CHF, acute on chronic ICD Code: I50.23 - Acute on chronic systolic (congestive) heart failure Status: Acute (3) HTN (hypertension) ICD Code: I10 - Essential (primary) hypertension Status: Chronic (4) SAEG (acute kidney injury) ICD Code: N17.9 - Acute kidney failure, unspecified Status: Acute (5) PNA (pneumonia) ICD Code: J18.9 - Pneumonia, unspecified organism Status: Acute Assessment and Plan 01/31: Patient diuresing well, appreciate nephrology and oncology consultation, kidney ultrasound ordered, but continue monitoring BMP, creatinine still at the 1.12> 1.11, hemoglobin dropped from 14-9.4, at 72 expected due to chemotherapy 02/01:WBC improved to 4.7, creatinine improved to 1.08, platelet stable at 79, hemoglobin 9.2, INR is 1.7> extra Coumadin today 02/02: Continue on Lasix iv, good urine output, repeat BMP in a.m., BMP today pending, if creatinine started to increase will switch Lasix iv 2 by mouth, INR 1.6>. We'll give 2.5 extra Coumadin today 02/03: Nephrology switch Lasix to by mouth 40 mg daily, patient doing well discharge home to follow up as an outpatient A/P: Patient is a 66-year-old female with primary medical history of B- cell lymphoma non-Hodgkin's, status post chemotherapy, CHF, TIA, HTN who came into the hospital for complaints of increasing shortness of breath and generalized edema. Pneumonia, Community Acquired Immunocompromised, S/P Chemotherapy - Increasing SOB, cough, Leukocytopenia WBC 1.9 - Chest x-ray showed possible slight consolidation above the left costophrenic angle on the left - Start IV antibiotic vancomycin, aztreonam, Flagyl - Infectious disease consult appreciate input - Monitor respiratory status systolic CHF exacerbation - Bilateral lower extremity edema +3, anasarca secondary to CHF possibly be worsening post chemotherapy - 2-D echo showed mildly reduced EF 40-45% - Lasix IV 60 mg twice a day - Strict I's and O's Acute kidney injury - Creatinine 1.12 - Consult nephrology input appreciated - Avoid nephrotoxins - Trend kidney indices RLQ Abdominal Pain - Complaints of constipation. Possible gas. - MOM, Duculax, Sennakot - Will consider CT of the abdomen and pelvis if pain is worsening or has not resolved HTN PPM Mechanical valve - Patient on Coumadin at home. Monitor INR - Hold losartan for now, as Lasix is given at an increased dose. Metoprolol 12.5 mg twice a day - Monitor BP trend DVT prop Coumadin Yvette Dias MD Feb 03, 2017 13:24
[2017-02-03] MEDS ORDERED: WARFARIN SOD 4 MG TAB PO ONE ×2 (13:30→16:00)
--- NOTE | 2017-02-03 13:33 | HHI.DS ---
Discharge Summary Admission Date Jan 30, 2017 at 15:47 Discharge Date: Feb 03, 2017 Admitting Diagnosis LLL PNA, NEUTROPENIA, CHF EXAC (1) Lymphoma ICD Code: C85.90 - Non-Hodgkin lymphoma, unspecified, unspecified site Status: Acute (2) Systolic CHF, acute on chronic ICD Code: I50.23 - Acute on chronic systolic (congestive) heart failure Status: Acute (3) HTN (hypertension) ICD Code: I10 - Essential (primary) hypertension Status: Chronic (4) SAGE (acute kidney injury) ICD Code: N17.9 - Acute kidney failure, unspecified Status: Acute (5) PNA (pneumonia) ICD Code: J18.9 - Pneumonia, unspecified organism Status: Acute Procedures None Brief History - From Admission Written by Rohan Gibbons, acting as scribe for Dr. Dias on 01/30/17 at 17:18. Patient is a 66-year-old female with primary medical history of B- cell lymphoma non-Hodgkin's, status post chemotherapy, CHF, TIA, HTN who came into the hospital for complaints of increasing shortness of breath and generalized edema. Patient states that she just completed chemotherapy when her last dose was 01/07 to 01/08. States she started noticing about a week ago that her bilateral lower extremity was edematous. She came to her primary care doctor and she was given Lasix and metolazone. She came back to follow up and states that her kidneys might have a problem with metolazone that she was taken off of it. About 2 days ago patient had increasing shortness of breath, cough nonproductive, dry. She was seen by her primary care doctor and has increased her Lasix from 40 twice a day to 3 times a day but patient continues to feel the same and has worsening shortness of breath. Patient also complains of right lower quadrant pain, 10 over 10 one it is painful, intermittent, sharp, localized does not radiate anywhere, does know what aggravates or relieves it. Otherwise, denies fevers, chills, nausea, vomiting, diarrhea. Denies any abdominal pain or abdominal cramping complaints of constipation. Denies chest pain, palpitations, headaches. Denies any dysuria, hematuria. CBC/BMP: 02/01/17 0500 02/03/17 0400 Significant Findings Laboratory Tests Test 01/31/17 18:05 02/01/17 05:00 02/02/17 05:16 02/03/17 04:00 Urine Occult Blood MOD (NEG) Urine Bacteria OCC /hpf (NONE) Red Blood Count 2.99 MIL/MM3 (4.00-5.30) Hemoglobin 9.2 GM/DL (11.6-15.3) Hematocrit 27.5 % (35.0-46.0) Platelet Count 79 TH/MM3 (150-450) Neutrophils (%) (Auto) 76.5 % (16.0-70.0) Lymphocytes (%) (Auto) 4.6 % (9.0-44.0) Monocytes (%) (Auto) 15.1 % (0.0-8.0) Lymphocytes # (Auto) 0.2 TH/MM3 (1.0-4.8) Platelet Estimate LOW (NORMAL) Ovalocytes 1+ (NORMAL) Prothrombin Time 19.1 SEC (9.8-11.6) 18.0 SEC (9.8-11.6) 18.5 SEC (9.8-11.6) Blood Urea Nitrogen 24 MG/DL (7-18) 23 MG/DL (7-18) Creatinine 1.08 MG/DL (0.50-1.00) 1.06 MG/DL (0.50-1.00) Random Glucose 109 MG/DL (74-106) Chloride Level 110 MEQ/L (98-107) 108 MEQ/L (98-107) Estimat Glomerular Filtration Rate 51 ML/MIN (>89) 52 ML/MIN (>89) PE at Discharge GENERAL: This is a well-nourished, well-developed patient, short of breath. SKIN: Warm and dry. Bilateral lower extremity with pink color discoloration stasis appearing. HEAD: Atraumatic. Normocephalic. EYES: Pupils equal round and reactive. Extraocular motions intact. No scleral icterus. No injection or drainage. ENT: Nose without bleeding. Throat without erythema. Uvula midline. Airway patent. NECK: Trachea midline. Positive JVD. Supple. CARDIOVASCULAR: Regular rate and rhythm with 3-4 systolic murmurs heard loudest in the R sternal border, no gallops, or rubs. RESPIRATORY: Crackles on the left middle lobe. No wheezing. GASTROINTESTINAL: Abdomen soft, distended. Right lower quadrant tenderness to palpation. Bowel sounds active 4. Anasarca. MUSCULOSKELETAL: Extremities without clubbing, cyanosis, bilateral lower extremity edema +3. NEUROLOGICAL: Awake and alert. Moves all extremity. Normal speech.no focal neurological deficit Hospital Course 66 years old female with history of B-cell lymphoma non-Hodgkin status post chemotherapy, CHF, TIA, hypertension, aortic valve replacement presented to the ED complaining of shortness of breath and edema she was found to have pneumonia and CHF exacerbation patient placed on iv antibiotic, 2-D echo pending EF 40-45 % started on large dose iv Lasix, ID and nephrology consulted, patient diuresed well, short of breath improved, cleared by specialist for discharge home Pt Condition on Discharge: Fair Discharge Disposition: Discharge Home Discharge Time: <= 30 minutes Discharge Instructions DIET: Follow Instructions for: Heart Healthy Diet Activities you can perform: Weight Bearing as Lulu Follow up Referrals: Nephrology - 1 Week New Orders: BASIC METABOLIC PROF - 1 Week New Medications: Furosemide (Furosemide) 40 Mg Tab 40 MG PO DAILY for chf, #30 TAB Continued Medications: Allopurinol (Allopurinol) 300 Mg Tab 300 MG PO DAILY for Gout, #30 TAB 0 Refills Cholecalciferol (Vitamin D3) 2,000 Unit Cap 2000 UNITS PO DAILY for Nutritional Supplement, #1 BOTTLE 0 Refills Losartan (Cozaar) 25 Mg Tab 25 MG PO DAILY for Blood Pressure Management, #30 TAB 0 Refills Lovastatin (Lovastatin) 10 Mg Tab 10 MG PO 2XWEEK for Cholesterol Management, #30 TAB 0 Refills Metoprolol Tartrate (Metoprolol Tartrate) 25 Mg Tab 12.5 MG PO BID, #60 TAB 0 Refills Montelukast (Singulair) 10 Mg Tab 10 MG PO HS, #30 TAB 0 Refills Omeprazole (Omeprazole) 20 Mg Tab 20 MG PO BID, #30 TAB 0 Refills Ondansetron HCl (Ondansetron HCl) 4 Mg Tab 4 MG PO BID Potassium Chloride ER (Potassium Chloride ER) 20 Meq Tab 20 MEQ PO DAILY for Electrolyte Replacement, #30 TAB 0 Refills Tizanidine (Tizanidine) 4 Mg Tab 4 MG PO HS for Muscle Spasm, TAB 0 Refills Warfarin (Warfarin) 6 Mg Tab 6 MG PO DAILY for Blood Clot Prevention, #30 TAB 0 Refills Yvette Dias MD Feb 03, 2017 13:33
[2017-02-03] MEDS: WARFARIN SOD 6 MG TAB PO SCH (15:26)
[2017-02-03] MEDS ORDERED: WARFARIN SOD 10 MG TAB PO ONE (16:00)
[2017-02-04] MEDS ORDERED: WARFARIN SOD 4 MG TAB PO SCH (16:00)
== END 2017-02-03 16:12 | disposition home or self-care (01) | DRG 193 ==
LOC: NEPC 13:03 → NEDA 15:39 → OBSVTOIN 15:47 → HOCB 18:16
PROVIDERS: ADMIT Hospitalist; ATTEND Hospitalist
DX: J18.9 Pneumonia, unspecified organism (principal); I50.23 Acute on chronic systolic (congestive) heart failure; N17.9 Acute kidney failure, unspecified; C82.00 Follicular lymphoma grade I, unspecified site; D70.9 Neutropenia, unspecified; G35 Multiple sclerosis; M10.9 Gout, unspecified; K59.00 Constipation, unspecified; K21.9 Gastro-esophageal reflux disease without esophagitis; Z86.73 Personal history of transient ischemic attack (TIA), and cerebral infarction without residual deficits; Z79.01 Long term (current) use of anticoagulants; Z95.2 Presence of prosthetic heart valve; Z95.0 Presence of cardiac pacemaker; I11.0 Hypertensive heart disease with heart failure
CPT/HCPCS: 71010; 76775; 80048; 80053; 81001; 82550; 82948; 83605; 83690; 83880; 84484; 84550; 85007; 85025; 85027; 85610; 85730; 87040; 93005; 93308; J1642; J1940; J2405; J3370; J7040

== ENCOUNTER 2017-02-12 19:52 | Inpatient (IN) | payer OTHER, MEDICARE ==
[~2017-02-12] VITALS: Ht 175.3 cm; Wt 99.0 kg
[~2017-02-12 19:52] MED LIST changes: +FURO40TA PO; -METO5TAB3 PO; +ONDA4TAB6 PO
[2017-02-12 19:55] VITALS: BP 179/98; PULSE 67; RESP 15; TEMP 98; O2SAT 97
--- NOTE | 2017-02-12 21:02 | PD ---
HPI Chief Complaint: Respiratory Distress Time Seen by Provider: 20:19 Travel History International Travel<30 days: No Contact w/Intl Traveler<30days: No Traveled to known affect area: No History of Present Illness HPI Patient is a 66-year-old female with history of non-Hodgkin's lymphoma, CHF, mitral valve replacement, pacemaker placement, A. fib, hypertension, hyperlipidemia, presents to emergency room with complaints of chest pain or shortness of breath. Patient reports that for the past couple weeks, she's been having increased dyspnea on exertion. Patient reports that every time she exerts herself, she feels an "elephant sitting on her chest" and is short of breath. Reports that symptoms resolves after she stops exerting herself. Patient reports that her symptoms have been increasing over the past few days, patient reports that she has dyspnea on exertion as well as chest pain while going from a sitting to a standing position. Reports that she cannot even go to the restroom without feeling short of breath. Patient reports that she was recently diagnosed with non-Hodgkin's lymphoma, she is being seen by Dr. Mayberry, reports that she received her second session of chemotherapy on Friday and Friday. Patient reports that she has had a nonproductive cough, no fevers or chills. Patient reports that she follows with Dr. Buitrago with cardiology. She did call her office today and was told to go straight to the ER. Patient currently is on Coumadin for A. fib as well as mitral valve replacement. PFSH Past Medical History Hx Anticoagulant Therapy: Yes Asthma: Yes Heart Rhythm Problems: Yes (BRADYCARDIA ) Cancer: Yes (skin ca on nose) Cardiovascular Problems: Yes Chemotherapy: Yes Congestive Heart Failure: Yes Cerebrovascular Accident: Yes (TIA x3 2005) Diabetes: Yes Diminished Hearing: No Endocrine: Yes Gastrointestinal Disorders: Yes (gerd) GERD: Yes Genitourinary: Yes (HEMATURIA ) Hepatitis: No Hiatal Hernia: No Hypertension: Yes Immune Disorder: No Kidney Stones: Yes Musculoskeletal: Yes (multiple sclerosis) Neurologic: Yes ( multiple sclerosis) Psychiatric: No Respiratory: Yes Immunizations Current: Yes Thyroid Disease: No Menopausal: Yes Past Surgical History Abdominal Surgery: Yes ( chocolate cyst removal ) Appendectomy: Yes Cardiac Surgery: Yes (AORTIC VALVE REPLACEMENT 1989, PACEMAKER INSERTION ) Cholecystectomy: Yes Gynecologic Surgery: Yes (left ovary removed, hysterectomy) Hysterectomy: Yes Pacemaker: Yes (Affinity SR Model #[id number]) Other Surgery: Yes Social History Alcohol Use: No Tobacco Use: No Substance Use: No Allergies-Medications (Allergen,Severity, Reaction): Coded Allergies: ampicillin (Verified Allergy, Severe, Hives, 02/12/17) aspirin (Verified Allergy, Severe, Hives, 02/12/17) cashew nut (Verified Allergy, Severe, Anaphylaxis, 02/12/17) ciprofloxacin (Verified Allergy, Severe, Hives, 02/12/17) doxycycline (Verified Allergy, Severe, Anaphylaxis, 02/12/17) erythromycin base (Verified Allergy, Severe, Anaphylaxis, 02/12/17) iodine (Verified Allergy, Severe, Shortness of Breath, 02/12/17) minocycline (Verified Allergy, Severe, Anaphylaxis, 02/12/17) morphine (Verified Allergy, Severe, Anaphylaxis, 02/12/17) penicillin G (Verified Allergy, Severe, Hives, 02/12/17) potassium iodide (Verified Allergy, Severe, Shortness of Breath, 02/12/17) povidone-iodine (Verified Allergy, Severe, Shortness of Breath, 02/12/17) sodium iodide (Verified Allergy, Severe, Shortness of Breath, 02/12/17) sodium iodide (Verified Allergy, Severe, Shortness of Breath, 02/12/17) tigecycline (Verified Allergy, Severe, Anaphylaxis, 02/12/17) acetaminophen (Verified Allergy, Unknown, Hives, 02/12/17) bee venom protein (honey bee) (Verified Allergy, Unknown, Shortness of Breath, 02/12/17) cephalexin (Verified Allergy, Unknown, Hives, 02/12/17) codeine (Verified Allergy, Unknown, Hives, 02/12/17) diclofenac (Verified Allergy, Unknown, Hives, 02/12/17) etodolac (Verified Allergy, Unknown, Hives, 02/12/17) flurbiprofen (Verified Allergy, Unknown, Hives, 02/12/17) gentamicin (Verified Allergy, Unknown, Hives, 02/12/17) indomethacin (Verified Allergy, Unknown, Hives, 02/12/17) ketoprofen (Verified Allergy, Unknown, Hives, 02/12/17) ketorolac (Verified Allergy, Unknown, Hives, 02/12/17) metronidazole (Verified Allergy, Unknown, Hives, 02/12/17) naproxen (Verified Allergy, Unknown, Hives, 02/12/17) oxaprozin (Verified Allergy, Unknown, Hives, 02/12/17) oxycodone (Verified Allergy, Unknown, Hives, 02/12/17) propoxyphene (Verified Allergy, Unknown, Hives, 02/12/17) Uncoded Allergies: KEFLIN (Allergy, Severe, Hives, 12/16/16) Reported Meds & Prescriptions Reported Meds & Active Scripts Active Reported Warfarin 6 Mg Tab 12 Mg PO Q4D Ondansetron HCl 4 Mg Tab 4 Mg PO BID Allopurinol 300 Mg Tab 300 Mg PO DAILY Magnesium (Magnesium Oxide) 400 Mg Tablet BID Tylenol Extra Strength (Acetaminophen) 500 Mg Tablet 1,000 QID Vitamin D3 (Cholecalciferol) 2,000 Unit Cap 2,000 Units PO DAILY Tizanidine (Tizanidine HCl) 4 Mg Tab 4 Mg PO HS Singulair (Montelukast Sodium) 10 Mg Tab 10 Mg PO HS Omeprazole 20 Mg Tab 20 Mg PO BID Metoprolol Tartrate 25 Mg Tab 12.5 Mg PO BID Lovastatin 10 Mg Tab 10 Mg PO 2XWEEK Lasix (Furosemide) 40 Mg Tab 40 Mg PO TID NEB Potassium Chloride ER (Potassium Chloride) 20 Meq Tab 20 Meq PO DAILY Cozaar (Losartan Potassium) 25 Mg Tab 25 Mg PO DAILY Warfarin 6 Mg Tab 6 Mg PO DAILY Baclofen 20 Mg Tab 20 Mg PO QID Review of Systems General / Constitutional: No: Fever Eyes: No: Visual changes HENT: No: Headaches Cardiovascular: Positive: Chest Pain or Discomfort, Dyspnea on exertion Respiratory: Positive: Cough, Shortness of Breath Gastrointestinal: No: Abdominal Pain Genitourinary: No: Dysuria Musculoskeletal: No: Pain Skin: No Rash Neurologic: No: Weakness Psychiatric: No: Depression Endocrine: No: Polydipsia Hematologic/Lymphatic: No: Easy Bruising Physical Exam Narrative GENERAL: Moderate distress SKIN: Focused skin assessment warm/dry. HEAD: Atraumatic. Normocephalic. EYES: Pupils equal and round. No scleral icterus. No injection or drainage. ENT: No nasal bleeding or discharge. Mucous membranes pink and moist. NECK: Trachea midline. No JVD. CARDIOVASCULAR: Regular rate and rhythm. +3 out of 5 felt like murmur appreciated. RESPIRATORY: No accessory muscle use. Clear to auscultation. Breath sounds equal bilaterally. GASTROINTESTINAL: Abdomen soft, non-tender, nondistended. Hepatic and splenic margins not palpable. MUSCULOSKELETAL: No obvious deformities. No clubbing. No cyanosis. +2 pitting edema NEUROLOGICAL: Awake and alert. No obvious cranial nerve deficits. Motor grossly within normal limits. Normal speech. PSYCHIATRIC: Appropriate mood and affect; insight and judgment normal. Data Data Last Documented VS Vital Signs Date Time Temp Pulse Resp B/P (MAP) Pulse Ox O2 Delivery O2 Flow Rate FiO2 02/12/17 21:00 60 100 Room Air 02/12/17 19:55 98.0 15 179/98 (125) Orders Orders Electrocardiogram (02/12/17 20:34) B-Type Natriuretic Peptide (02/12/17 20:34) Ckmb (Isoenzyme) Profile (02/12/17 20:34) Complete Blood Count With Diff (02/12/17 20:34) Comprehensive Metabolic Panel (02/12/17 20:34) Magnesium (Mg) (02/12/17 20:34) Prothrombin Time / Inr (Pt) (02/12/17 20:34) Act Partial Throm Time (Ptt) (02/12/17 20:34) Troponin I (02/12/17 20:34) Chest, Single Ap (02/12/17 20:34) Ecg Monitoring (02/12/17 20:34) Iv Access Insert/Monitor (02/12/17 20:34) Oximetry (02/12/17 20:34) Sodium Chloride 0.9% Flush (Ns Flush) (02/12/17 20:45) Lactic Acid Sepsis Protocol (02/12/17 20:34) Blood Culture (02/12/17 20:34) Admit Order (Ed Use Only) (02/12/17 22:56) Labs Laboratory Tests Test 02/12/17 21:20 02/12/17 21:25 White Blood Count 8.4 TH/MM3 Red Blood Count 3.31 MIL/MM3 Hemoglobin 10.4 GM/DL Hematocrit 30.7 % Mean Corpuscular Volume 92.7 FL Mean Corpuscular Hemoglobin 31.3 PG Mean Corpuscular Hemoglobin Concent 33.7 % Red Cell Distribution Width 17.1 % Platelet Count 185 TH/MM3 Mean Platelet Volume 7.5 FL Neutrophils (%) (Auto) 88.3 % Lymphocytes (%) (Auto) 1.8 % Monocytes (%) (Auto) 8.1 % Eosinophils (%) (Auto) 1.4 % Basophils (%) (Auto) 0.4 % Neutrophils # (Auto) 7.4 TH/MM3 Lymphocytes # (Auto) 0.1 TH/MM3 Monocytes # (Auto) 0.7 TH/MM3 Eosinophils # (Auto) 0.1 TH/MM3 Basophils # (Auto) 0.0 TH/MM3 CBC Comment DIFF FINAL Differential Comment Prothrombin Time 62.8 SEC Prothromb Time International Ratio 5.3 RATIO Activated Partial Thromboplast Time 42.1 SEC Blood Urea Nitrogen 36 MG/DL Creatinine 1.66 MG/DL Random Glucose 124 MG/DL Total Protein 6.1 GM/DL Albumin 3.6 GM/DL Calcium Level 9.2 MG/DL Magnesium Level 2.4 MG/DL Alkaline Phosphatase 112 U/L Aspartate Amino Transf (AST/SGOT) 19 U/L Alanine Aminotransferase (ALT/SGPT) 18 U/L Total Bilirubin 0.5 MG/DL Sodium Level 137 MEQ/L Potassium Level 4.3 MEQ/L Chloride Level 105 MEQ/L Carbon Dioxide Level 24.9 MEQ/L Anion Gap 7 MEQ/L Estimat Glomerular Filtration Rate 31 ML/MIN Total Creatine Kinase 27 U/L Troponin I LESS THAN 0.02 NG/ML B-Type Natriuretic Peptide 124 PG/ML Lactic Acid Level 0.9 mmol/L MDM Medical Decision Making Medical Screen Exam Complete: Yes Emergency Medical Condition: Yes Interpretation(s) EKG at 2038: Ventricular paced at 60bpm, qt/qtc: 448/448 Vital Signs Date Time Temp Pulse Resp B/P (MAP) Pulse Ox O2 Delivery O2 Flow Rate FiO2 02/12/17 19:55 98.0 67 15 179/98 (125) 97 Room Air Differential Diagnosis Differential includes CHF exacerbation, pneumonia, ACS, arrhythmia, electrolyte abnormality, bacteremia Narrative Course Patient is a 66-year-old female who presents to emergency room with complaints of dyspnea on exertion as well as chest pain "elephant on my chest" for the past few weeks. Patient reports his symptoms have been worsening over the past few days, reports that now she has dyspnea with going from a sitting to a standing position. Does have history of CHF, A. fib, hypertension, non-Hodgkin' s lymphoma on chemotherapy - there is concern for possible infection versus each exacerbation as well as ACS. Patient was placed on a monitoring analyst upon arrival to the emergency room. EKG obtained. Lab work including blood cultures and lactic acid ordered. Plan to monitor on monitoring analyst. Vital Signs Date Time Temp Pulse Resp B/P (MAP) Pulse Ox O2 Delivery O2 Flow Rate FiO2 02/12/17 21:00 60 100 Room Air 02/12/17 19:55 98.0 67 15 179/98 (125) 97 Room Air Laboratory Tests Test 02/12/17 21:20 02/12/17 21:25 White Blood Count 8.4 TH/MM3 (4.0-11.0) Red Blood Count 3.31 MIL/MM3 (4.00-5.30) Hemoglobin 10.4 GM/DL (11.6-15.3) Hematocrit 30.7 % (35.0-46.0) Mean Corpuscular Volume 92.7 FL (80.0-100.0) Mean Corpuscular Hemoglobin 31.3 PG (27.0-34.0) Mean Corpuscular Hemoglobin Concent 33.7 % (32.0-36.0) Red Cell Distribution Width 17.1 % (11.6-17.2) Platelet Count 185 TH/MM3 (150-450) Mean Platelet Volume 7.5 FL (7.0-11.0) Neutrophils (%) (Auto) 88.3 % (16.0-70.0) Lymphocytes (%) (Auto) 1.8 % (9.0-44.0) Monocytes (%) (Auto) 8.1 % (0.0-8.0) Eosinophils (%) (Auto) 1.4 % (0.0-4.0) Basophils (%) (Auto) 0.4 % (0.0-2.0) Neutrophils # (Auto) 7.4 TH/MM3 (1.8-7.7) Lymphocytes # (Auto) 0.1 TH/MM3 (1.0-4.8) Monocytes # (Auto) 0.7 TH/MM3 (0-0.9) Eosinophils # (Auto) 0.1 TH/MM3 (0-0.4) Basophils # (Auto) 0.0 TH/MM3 (0-0.2) CBC Comment DIFF FINAL Differential Comment Prothrombin Time 62.8 SEC (9.8-11.6) Prothromb Time International Ratio 5.3 RATIO Activated Partial Thromboplast Time 42.1 SEC (24.3-30.1) Blood Urea Nitrogen 36 MG/DL (7-18) Creatinine 1.66 MG/DL (0.50-1.00) Random Glucose 124 MG/DL (74-106) Total Protein 6.1 GM/DL (6.4-8.2) Albumin 3.6 GM/DL (3.4-5.0) Calcium Level 9.2 MG/DL (8.5-10.1) Magnesium Level 2.4 MG/DL (1.5-2.5) Alkaline Phosphatase 112 U/L (45-117) Aspartate Amino Transf (AST/SGOT) 19 U/L (15-37) Alanine Aminotransferase (ALT/SGPT) 18 U/L (10-53) Total Bilirubin 0.5 MG/DL (0.2-1.0) Sodium Level 137 MEQ/L (136-145) Potassium Level 4.3 MEQ/L (3.5-5.1) Chloride Level 105 MEQ/L (98-107) Carbon Dioxide Level 24.9 MEQ/L (21.0-32.0) Anion Gap 7 MEQ/L (5-15) Estimat Glomerular Filtration Rate 31 ML/MIN (>89) Total Creatine Kinase 27 U/L (26-192) Troponin I LESS THAN 0.02 NG/ML B-Type Natriuretic Peptide 124 PG/ML (0-100) Lactic Acid Level 0.9 mmol/L (0.4-2.0) Last Impressions Chest X-Ray 02/12/172033 Signed Impressions: Service Date/Time: Sunday, February 12, 2017 20:51 - CONCLUSION: 1. Small left pleural effusion and tiny right pleural effusion. 2. Cardiomegaly. Jaycob Camara MD I reviewed all labs and all studies with patient in detail. Plan to obs in [facility] for cardiac workup Diagnosis Primary Impression: Chest pain Qualified Codes: R07.9 - Chest pain, unspecified Admitting Information Admitting Physician Requests: Observation Nadia Ponce DO Feb 12, 2017 21:01
--- NOTE | 2017-02-12 21:32 | RADRPT ---
EXAM DATE/TIME: 02/12/2017 20:51 [facility] COMPARISON: CHEST SINGLE AP, January 30, 2017, 14:03. INDICATIONS : Patient complains of shortness of breath. MEDICAL HISTORY : Congestive heart failure. Asthma. Bronchitis. Thrombocytopenia. Non-Hodgkin Lymphoma. SURGICAL HISTORY : Pacemaker. Aortic valve replacement. [id number]. Right breast lumpectomy. ENCOUNTER: Initial ACUITY: 3 weeks PAIN SCORE: 0/10 LOCATION: Chest FINDINGS: Median sternotomy wires are noted status post cardiac surgery. A small left pleural effusion and a t iny right pleural effusion are noted. The heart is enlarged. A right internal jugular [id number] has its tip in the superior vena cava. A left subclavian dual lead pacemaker has it tips in the rig ht atrium and right ventricle. No pneumothorax is noted. No pulmonary edema is noted. CONCLUSION: 1. Small left pleural effusion and tiny right pleural effusion. 2. Cardiomegaly. Jaycob Camara MD on February 12, 2017 at 21:10 Board Certified Radiologist. This report was verified electronically.
[2017-02-12 22:01] LABS: AUTOMATED NEUTROPHIL # 7.4 TH/MM3 (1.8-7.7); BASOPHIL % 0.4 % (0.0-2.0); EOSINOPHIL # 0.1 TH/MM3 (0-0.4); EOSINOPHIL % 1.4 % (0.0-4.0); HEMATOCRIT 30.7 % (35.0-46.0); HEMO FLAGS DIFF FINAL; LYMPH % 1.8 % (9.0-44.0); LYMPHOCYTE # 0.1 TH/MM3 (1.0-4.8); MEAN CELL VOLUME 92.7 FL (80.0-100.0); MEAN CORPUSCULAR HEMOGLOBIN 31.3 PG (27.0-34.0); MEAN CORPUSCULAR HGB CONC 33.7 % (32.0-36.0); MONO % 8.1 % (0.0-8.0); NEUT % 88.3 % (16.0-70.0); PLATELET COUNT 185 TH/MM3 (150-450); RED BLOOD COUNT 3.31 MIL/MM3 (4.00-5.30); RED CELL DISTRIBUTION WIDTH 17.1 % (11.6-17.2); WHITE BLOOD COUNT 8.4 TH/MM3 (4.0-11.0)
[2017-02-12 22:08] LABS: ANION GAP 7 MEQ/L (5-15); AST (GOT) 19 U/L (15-37); BICARBONATE 24.9 MEQ/L (21.0-32.0); BLOOD UREA NITROGEN 36 MG/DL (7-18); CHLORIDE 105 MEQ/L (98-107); GLOMERULAR FILTRATION RATE 31 ML/MIN (>89); MAGNESIUM 2.4 MG/DL (1.5-2.5); POTASSIUM 4.3 MEQ/L (3.5-5.1); SODIUM (NA) 137 MEQ/L (136-145)
[2017-02-12 22:09] LABS: ALT (GPT) 18 U/L (10-53)
[2017-02-12 22:13] LABS: ALKALINE PHOSPHATASE 112 U/L (45-117); APTT (PATIENT) 42.1 SEC (24.3-30.1); INTERNATIONAL NORMALIZED RATIO 5.3 RATIO; PROTHROMBIN TIME - PATIENT 62.8 SEC (9.8-11.6); TOTAL BILIRUBIN ADULT 0.5 MG/DL (0.2-1.0)
[2017-02-12 22:43] LABS: CREATINE KINASE 27 U/L (26-192)
[2017-02-12 23:00] VITALS: BP 166/68; PULSE 60; RESP 20; O2SAT 100
--- NOTE | 2017-02-12 23:21 | EKG ---
Date Performed: 02/12/2017 Time Performed: 20:39:29 PTAGE: 66 years EKG: ELECTRONIC VENTRICULAR PACEMAKER ABNORMAL RHYTHM ECG PREVIOUS TRACING : 01/30/2017 13.31 Compared to prior tracing no significant change DOCTOR: Branden Oquendo Interpretating Date/Time 02/12/2017 23:20:51
[2017-02-12] MEDS ORDERED: WARF-60 PO (23:30)
[2017-02-13] VITALS (9 sets, daily range): BP systolic 134–161; BP diastolic 61–68; PULSE 59–72; RESP 17–20; TEMP 97.6–98.2; O2SAT 100
[2017-02-13] MEDS ORDERED: FUROSEMIDE 40 MG TAB PO SCH (09:00)
[2017-02-13] MEDS ORDERED: DEXTROSE 50% IN WATER 50 ML VIAL(D50) IV PRN (09:00)
[2017-02-13] MEDS ORDERED: GLUCAGON 1 MG/ML VIAL IM/SQ PRN (09:00)
[2017-02-13] MEDS ORDERED: BACLOFEN 20 MG TAB PO SCH (09:00)
[2017-02-13] MEDS: ONDANSETRON ODT 4 MG TAB PO SCH ×2 (09:53→20:51)
[2017-02-13] MEDS: METOPROLOL TARTRATE 25 MG TAB PO SCH ×2 (09:54→20:51)
[2017-02-13] MEDS: POTASSIUM CHLORIDE 20 MEQ CONTROLLED RELEASE TAB PO SCH (09:54)
[2017-02-13] MEDS: PANTOPRAZOLE SOD 20 MG DELAYED RELEASE TAB PO SCH ×2 (09:54→20:51)
[2017-02-13] MEDS: SODIUM CHLORIDE 0.9% FLUSH 10 ML FLUSH IVF PRN (09:54)
[2017-02-13] MEDS: LOSARTAN 25 MG TAB PO SCH (09:56)
--- NOTE | 2017-02-13 09:56 | HHI.HP ---
HPI Primary Care Physician Lane Mayberry MD Chief Complaint Chest pain History of Present Illness This is a 66-year-old female with history of non-Hodgkin's B-cell lymphoma recently diagnosed November, atrial fibrillation and ventricular paced, history of aortic valve replacement in 1986 a redo in 1989, congestive heart failure, recent pneumonia, and diabetes type 2 that presents to ED with the primary complaint of chest discomfort and shortness of breath for about a week to week and a half. She states the tightness in her chest/pressure chest with shortness of breath primarily was with light activity which included initially walking her groceries into the house. That has progressed to having difficulty walking from the car without the groceries. She is also had discomfort while sitting at rest. She also cannot recall that for the past almost 2 months she' s had to sleep on her recliner. States when she lies flat she will have a pressure in her chest and will get short of breath. She states her legs have been swollen. She saw her prep cook last month and had a 2-D echo and was told that there may be an issue with the tricuspid valve but this needs to monitor at this time and that her aortic valve was doing fine. She has not had a cough. No fevers or chills. She follows Dr. Lane Mayberry for non-Hodgkin's lymphoma and had completed 2 rounds of chemotherapy. She seems to think that her symptoms began or release worsened after the chemotherapy. Patient also has history of multiple sclerosis and believes that her arms and legs week and some over last few months. Review of Systems General: Patient denies fevers, chills recent, and recent travel HEENT: Patient denies headache, sore throat, difficulty swallowing. Cardiovascular: Has the chest discomfort as mentioned above. Denies sensation of heart beating rapidly or irregularly. No syncope. Denies diaphoresis. Respiratory: She has been short of breath. She's been short of breath with light activity as well as at rest. Denies inspirational chest discomfort. Denies coughing wheezing or hemoptysis. GI: She has had intermittent nausea. Patient denies vomiting, diarrhea, abdominal pain, bloody stools. Musculoskeletal: Patient denies joint pain or edema. There has been edema in her lower extremities. Neurovascular: She has had weakness in her extremities. Patient denies numbness , tingling in extremities. Denies headache. Endocrine: Denies polyuria and polydipsia. Hematologic: Denies easy bruising. Skin: Denies rash or itching. Past Family Social History Allergies: Coded Allergies: ampicillin (Verified Allergy, Severe, Hives, 02/12/17) aspirin (Verified Allergy, Severe, Hives, 02/12/17) cashew nut (Verified Allergy, Severe, Anaphylaxis, 02/12/17) ciprofloxacin (Verified Allergy, Severe, Hives, 02/12/17) doxycycline (Verified Allergy, Severe, Anaphylaxis, 02/12/17) erythromycin base (Verified Allergy, Severe, Anaphylaxis, 02/12/17) iodine (Verified Allergy, Severe, Shortness of Breath, 02/12/17) minocycline (Verified Allergy, Severe, Anaphylaxis, 02/12/17) morphine (Verified Allergy, Severe, Anaphylaxis, 02/12/17) penicillin G (Verified Allergy, Severe, Hives, 02/12/17) potassium iodide (Verified Allergy, Severe, Shortness of Breath, 02/12/17) povidone-iodine (Verified Allergy, Severe, Shortness of Breath, 02/12/17) sodium iodide (Verified Allergy, Severe, Shortness of Breath, 02/12/17) sodium iodide (Verified Allergy, Severe, Shortness of Breath, 02/12/17) tigecycline (Verified Allergy, Severe, Anaphylaxis, 02/12/17) acetaminophen (Verified Allergy, Unknown, Hives, 02/12/17) bee venom protein (honey bee) (Verified Allergy, Unknown, Shortness of Breath, 02/12/17) cephalexin (Verified Allergy, Unknown, Hives, 02/12/17) codeine (Verified Allergy, Unknown, Hives, 02/12/17) diclofenac (Verified Allergy, Unknown, Hives, 02/12/17) etodolac (Verified Allergy, Unknown, Hives, 02/12/17) flurbiprofen (Verified Allergy, Unknown, Hives, 02/12/17) gentamicin (Verified Allergy, Unknown, Hives, 02/12/17) indomethacin (Verified Allergy, Unknown, Hives, 02/12/17) ketoprofen (Verified Allergy, Unknown, Hives, 02/12/17) ketorolac (Verified Allergy, Unknown, Hives, 02/12/17) metronidazole (Verified Allergy, Unknown, Hives, 02/12/17) naproxen (Verified Allergy, Unknown, Hives, 02/12/17) oxaprozin (Verified Allergy, Unknown, Hives, 02/12/17) oxycodone (Verified Allergy, Unknown, Hives, 02/12/17) propoxyphene (Verified Allergy, Unknown, Hives, 02/12/17) Uncoded Allergies: KEFLIN (Allergy, Severe, Hives, 12/16/16) Past Medical History Recently diagnosed non-Hodgkin's B-cell lymphoma. He has completed 2 rounds of chemotherapy. She also has abdominal mass. Atrial fibrillation and is ventricular paced. History of aortic valve replacement and 1989. Congestive heart failure. Diabetes type 2 currently diet controlled. Anemia, kidney stones, TIA in 2005, gout. Hyperlipidemia. Past Surgical History Multiple heart catheterizations. Aortic valve replacement with St. Bao valve 1986 and 1989. Back surgery with L3-L5 fusion. Cholecystectomy. Cataract removal. Resection of melanoma in 2010. Right breast lumpectomy and that was benign. Tonsillectomy. Tubal ligation, hysterectomy. Reported Medications Reported Meds & Active Scripts Active Reported Warfarin 6 Mg Tab 12 Mg PO Q4D Ondansetron HCl 4 Mg Tab 4 Mg PO BID Allopurinol 300 Mg Tab 300 Mg PO DAILY Magnesium (Magnesium Oxide) 400 Mg Tablet 1 Tab PO BID Tylenol Extra Strength (Acetaminophen) 500 Mg Tablet 1,000 QID Vitamin D3 (Cholecalciferol) 2,000 Unit Cap 2,000 Units PO DAILY Tizanidine (Tizanidine HCl) 4 Mg Tab 4 Mg PO HS Singulair (Montelukast Sodium) 10 Mg Tab 10 Mg PO HS Omeprazole 20 Mg Tab 20 Mg PO BID Metoprolol Tartrate 25 Mg Tab 12.5 Mg PO BID Lovastatin 10 Mg Tab 10 Mg PO 2XWEEK Lasix (Furosemide) 40 Mg Tab 40 Mg PO TID NEB Potassium Chloride ER (Potassium Chloride) 20 Meq Tab 20 Meq PO DAILY Cozaar (Losartan Potassium) 25 Mg Tab 25 Mg PO DAILY Warfarin 6 Mg Tab 6 Mg PO DAILY Baclofen 20 Mg Tab 20 Mg PO QID Active Ordered Medications Current Medications Medications (Trade) Dose Ordered Sig/Love Route Start Time Stop Time Status Last Admin (NS Flush) 2 ml UNSCH PRN IVF 02/12/17 20:45 (Lioresal) 20 mg QID PO 02/13/17 09:00 (Lasix) 40 mg TID PO 02/13/17 09:00 (Cozaar) 25 mg DAILY PO 02/13/17 09:00 (Lopressor) 12.5 mg BID PO 02/13/17 09:00 (Singulair) 10 mg HS PO 02/13/17 21:00 (KCl) 20 meq DAILY PO 02/13/17 09:00 (Zanaflex) 4 mg HS PO 02/13/17 21:00 (Protonix) 20 mg BID PO 02/13/17 09:15 (Zofran Odt) 4 mg BID PO 02/13/17 09:00 (NovoLOG SUPPLEMENTAL SCALE) 1 ACHS SLIDING SCALE SQ 02/13/17 12:00 (D50w (Vial) Inj) 25 ml UNSCH PRN IV 02/13/17 09:00 (Glucagon Inj) 1 mg UNSCH PRN IM/SQ 02/13/17 09:00 Physical Exam Vital Signs Vital Signs Date Time Temp Pulse Resp B/P (MAP) Pulse Ox O2 Delivery O2 Flow Rate FiO2 02/13/17 07:49 98.0 60 20 137/63 (87) 100 02/13/17 04:47 72 02/13/17 01:29 60 02/12/17 23:00 60 20 166/68 (100) 100 Room Air 02/12/17 21:00 60 100 Room Air 02/12/17 19:55 98.0 67 15 179/98 (125) 97 Room Air Physical Exam GENERAL: This is a well-nourished, well-developed patient, in no apparent distress. Patient speaks in clear complete sentences. Patient is pleasant. HEENT: Head is atraumatic and normocephalic. Neck is supple without lymphadenopathy and trachea is midline. No JVD or carotid bruits. CARDIOVASCULAR: Patient is ventricularly paced. Grade 2 systolic murmur on left and right sternal border as well as a grade 2 diastolic murmur left sternal border. No obvious rub. RESPIRATORY: Clear to auscultation. Breath sounds equal bilaterally. No wheezes , rales, or rhonchi. Chest wall is nontender. No use of accessory muscles. GASTROINTESTINAL: Abdomen is nontender, nondistended. Abdomen soft. No obvious pulsatile mass or bruit. No CVA tenderness. Strong femoral pulses bilaterally. Normal bowel sounds in all quadrants. MUSCULOSKELETAL: There is 1-2+ pitting edema bilateral lower extremities with stasis dermatitis. Patient is moving upper and lower extremities freely. No calf tenderness or edema, no Homans sign. Strong pulses in upper and lower extremities. NEUROLOGICAL: Patient is alert and oriented. Cranial nerves 2-12 are grossly intact. No focal deficits and speech is clear. SKIN: Stasis dermatitis bilateral legs with 1-2+ pitting edema. Laboratory Laboratory Tests Test 02/12/17 21:20 02/12/17 21:25 02/13/17 00:17 02/13/17 03:20 White Blood Count 8.4 Red Blood Count 3.31 Hemoglobin 10.4 Hematocrit 30.7 Mean Corpuscular Volume 92.7 Mean Corpuscular Hemoglobin 31.3 Mean Corpuscular Hemoglobin Concent 33.7 Red Cell Distribution Width 17.1 Platelet Count 185 Mean Platelet Volume 7.5 Neutrophils (%) (Auto) 88.3 Lymphocytes (%) (Auto) 1.8 Monocytes (%) (Auto) 8.1 Eosinophils (%) (Auto) 1.4 Basophils (%) (Auto) 0.4 Neutrophils # (Auto) 7.4 Lymphocytes # (Auto) 0.1 Monocytes # (Auto) 0.7 Eosinophils # (Auto) 0.1 Basophils # (Auto) 0.0 CBC Comment DIFF FINAL Differential Comment Prothrombin Time 62.8 Prothromb Time International Ratio 5.3 Activated Partial Thromboplast Time 42.1 Blood Urea Nitrogen 36 Creatinine 1.66 Random Glucose 124 Total Protein 6.1 Albumin 3.6 Calcium Level 9.2 Magnesium Level 2.4 Alkaline Phosphatase 112 Aspartate Amino Transf (AST/SGOT) 19 Alanine Aminotransferase (ALT/SGPT) 18 Total Bilirubin 0.5 Sodium Level 137 Potassium Level 4.3 Chloride Level 105 Carbon Dioxide Level 24.9 Anion Gap 7 Estimat Glomerular Filtration Rate 31 Total Creatine Kinase 27 23 20 Troponin I LESS THAN 0.02 0.02 0.02 B-Type Natriuretic Peptide 124 Lactic Acid Level 0.9 Date/Time Source Procedure Growth Status 02/12/17 21:30 Blood Peripheral Aerobic Blood Culture Pending Received 02/12/17 21:30 Blood Peripheral Anaerobic Blood Culture Pending Received Result Diagram: 02/12/17211902/12/172119 Caprini VTE Risk Assessment Caprini VTE Risk Assessment: Mod/High Risk (score >= 2) Caprini Risk Assessment Model Point Value = 1 Point Value = 2 Point Value = 3 Point Value = 5 Age 41-60 Minor surgery BMI > 25 kg/m2 Swollen legs Varicose veins or History of unexplained or recurrent spontaneous Oral contraceptives or hormone replacement Sepsis (< 1 month) Serious lung disease, including pneumonia (< 1 month) Abnormal pulmonary function Acute myocardial infarction Congestive heart failure (< 1 month) History of inflammatory bowel disease Medical patient at bed rest Age 61-74 Arthroscopic surgery Major open surgery (> 45 min) Laparoscopic surgery (> 45 min) Malignancy Confined to bed (> 72 hours) Immobilizing plaster cast Central venous access Age >= 75 History of VTE Family history of VTE Factor V Leiden Prothrombin [id number] Lupus anticoagulant Anticardiolipin antibodies Elevated serum homocysteine Heparin-induced thrombocytopenia Other congenital or acquired thrombophilia Stroke (< 1 month) Elective arthroplasty Hip, pelvis, or leg fracture Acute spinal cord injury (< 1 month) Prophylaxis Regimen Total Risk Factor Score Risk Level Prophylaxis Regimen 0-1 Low Early ambulation 2 Moderate Order ONE of the following: *Sequential Compression Device (SCD) *Heparin 5000 units SQ BID 3-4 Higher Order ONE of the following medications: *Heparin 5000 units SQ TID *Enoxaparin/Lovenox 40 mg SQ daily (WT < 150 kg, CrCl > 30 mL/min) *Enoxaparin/Lovenox 30 mg SQ daily (WT < 150 kg, CrCl > 10-29 mL/min) *Enoxaparin/Lovenox 30 mg SQ BID (WT < 150 kg, CrCl > 30 mL/min) AND/OR *Sequential Compression Device (SCD) 5 or more Highest Order ONE of the following medications: *Heparin 5000 units SQ TID (Preferred with Epidurals) *Enoxaparin/Lovenox 40 mg SQ daily (WT < 150 kg, CrCl > 30 mL/min) *Enoxaparin/Lovenox 30 mg SQ daily (WT < 150 kg, CrCl > 10-29 mL/min) *Enoxaparin/Lovenox 30 mg SQ BID (WT < 150 kg, CrCl > 30 mL/min) AND *Sequential Compression Device (SCD) Assessment and Plan Assessment and Plan * Chest pain: Patient has had serial cardiac enzymes and EKGs for ruling out purposes. She was seen by Dr. Olvera of cardiology and the chest pain center. Her symptoms do not appear to be ischemic in nature. At this time stress testing is indicated and patient is further evaluation. She has pleural effusions. These were not seen on prior chest x-ray earlier this month when she was admitted for pneumonia. Patient will be admitted to [facility] and Dr. Blevins is graciously agreed to accept this patient. Further plan pending his evaluation. Patient is agreeable to this plan. * Non-Hodgkin's lymphoma: Continue management with her oncologist. * Hypertension: Continue current medication. * Hyperlipidemia: Continue current medication. * A. fib: Patient is on warfarin. INR is hypertherapeutic at 5.4. Hold warfarin at this time. Will repeat INR. * Diabetes: We'll have sliding scale insulin coverage. She'll be on a diabetic diet. Oswaldo Ruiz Feb 13, 2017 09:56
--- NOTE | 2017-02-13 10:32 | EKG ---
Date Performed: 02/13/2017 Time Performed: 03:17:07 PTAGE: 66 years EKG: ELECTRONIC VENTRICULAR PACEMAKER ABNORMAL RHYTHM ECG PREVIOUS TRACING : 02/13/2017 00.26 DOCTOR: Kentrell Olvera Interpretating Date/Time 02/13/2017 10:31:58
--- NOTE | 2017-02-13 10:33 | EKG ---
Date Performed: 02/13/2017 Time Performed: 00:26:50 PTAGE: 66 years EKG: ELECTRONIC VENTRICULAR PACEMAKER ABNORMAL RHYTHM ECG NO CHANGE PREVIOUS TRACING : 02/12/2017 20.39 DOCTOR: Kentrell Olvera Interpretating Date/Time 02/13/2017 10:32:32
[2017-02-13] MEDS ORDERED: FUROSEMIDE 20 MG/2 ML VIAL IV PUSH ONE (12:00)
[2017-02-13] MEDS: INSULIN ASPART SUPPLEMENTAL SCALE SQ SCH ×3 (12:00→20:56)
[2017-02-13] MEDS: MAGNESIUM OXIDE 400 MG TAB PO SCH ×2 (12:01→20:52)
[2017-02-13] MEDS: CHOLECALCIFEROL (VIT D3) 1000 UNIT TAB PO SCH (12:01)
[2017-02-13] MEDS: ALLOPURINOL 300 MG TAB PO SCH (12:08)
[2017-02-13 13:54] LABS: INTERNATIONAL NORMALIZED RATIO 5.8 RATIO; PROTHROMBIN TIME - PATIENT 69.2 SEC (9.8-11.6)
[2017-02-13] MEDS: FUROSEMIDE 40 MG/4 ML VIAL IV PUSH SCH (17:49)
[2017-02-13] MEDS: BACLOFEN 20 MG TAB PO PRN (17:50)
[2017-02-13] MEDS ORDERED: DIAZEPAM 10 MG TAB PO SCH (18:00)
[2017-02-13] MEDS ORDERED: ASPIRIN 325 MG TAB PO SCH (18:00)
[2017-02-13] MEDS ORDERED: diphenhydrAMINE HCL 50 MG CAP PO SCH (18:00)
[2017-02-13] MEDS: MONTELUKAST SODIUM 10 MG TAB PO SCH (20:51)
[2017-02-13] MEDS: SODIUM CHLOR 0.9% 1000 ML INJ 1,000 ML IV SCH (20:51)
--- NOTE | 2017-02-13 20:57 | MB ---
cc: DAVE BAJWA M.D. DATE OF CONSULTATION 02/13/17 REASON FOR CONSULTATION Chest pain, congestive heart failure. HISTORY OF PRESENT ILLNESS The patient is a 66-year-old white female with a history of multiple medical problems including aortic valve disease status post St. Bao aortic valve replacement 1989, chronic atrial fibrillation, diabetes, hypertension, multiple sclerosis, history of pacemaker implant who presented to the hospital with complaints of increasing dyspnea with exertion and chest pains. About a week ago she began to experience exertional diffuse chest "tightness." The tightness would last up to 20 minutes and has been precipitated by very minimal exertion. Associated symptoms include moderate shortness of breath without nausea or diaphoresis. The chest tightness has occurred every day invariably with exertion. Over the past couple of weeks she has also noted increased pedal edema from baseline. She denies paroxysmal nocturnal dyspnea but has had considerable orthopnea in the last few days. The patient denies palpitations, syncope or near syncope except for one brief episode while having a bowel movement today. The patient reports compliance with her medications. At the present time she is resting comfortably without chest pain or shortness of breath. PAST MEDICAL HISTORY 1. Aortic valve disease status post St. Bao aortic valve replacement 1989. 2. Asthma. 3. Chronic atrial fibrillation. 4. Possible congestive heart failure in 1993. 5. Diabetes, resolved after weight loss. 6. Gastroesophageal reflux disease. 7. Gout. 8. Hyperlipidemia. 9. Hypertension. 10. History of non-Hodgkin's lymphoma. 11. Multiple sclerosis. 12. Status post [facility] Bao permanent pacemaker implant. 13. History of transient ischemic attack. MEDICATIONS Cardiac medications at home: 1. Coumadin 6 milligram tablet taken as directed. 2. Cozaar 25 milligrams daily. 3. Potassium chloride 20 milligrams daily. 4. Lasix 40 milligrams daily. 5. Lovastatin 10 milligrams Tuesdays and . 6. Metoprolol tartrate 12.5 milligrams b.i.d. ALLERGIES THE PATIENT HAS NUMEROUS ALLERGIES DOCUMENTED IN THE ELECTRONIC RECORDS. FAMILY HISTORY Noncontributory. SOCIAL HISTORY The patient has never smoked cigarettes. He denies alcohol abuse. REVIEW OF SYSTEMS As in the history of present illness, otherwise, negative or noncontributory. She also denies headache, abdominal pain, melena, fevers. The patient does report a mild overall nonproductive cough as well as rare bright red blood per rectum from hemorrhoids. PHYSICAL EXAMINATION VITAL SIGNS: Her blood pressure 141/63 with a pulse of 60, respirations 20. GENERAL: In general, she is a well-developed, well-nourished white female in no acute distress HEENT: On examination jugular venous pressure is 9-10 cm of water. Carotid pulses are 2+ bilaterally and without bruits. CHEST: Examination of the chest reveals few left greater than right basilar crackles, diminished breath sounds at the left base. CARDIAC EXAMINATION: She has a regular rhythm and rate with a grade 2/6 systolic ejection murmur heard at the base of the heart. The aortic valve sounds are crisp. No definite gallop is audible. ABDOMEN: On abdominal examination she has a soft, nontender abdomen. Bowel sounds are present. There is no definite hepatosplenomegaly. EXTREMITIES: Examination of extremities reveals no clubbing or cyanosis. There is 2+, slightly worse on the right, pretibial edema. LABORATORY DATA Includes WBC 8.4, hemoglobin 10.4, platelets 185, potassium 4.3, BUN 36, creatinine 1.66. Negative cardiac enzymes. INR 5.8. IMAGING STUDIES Chest x-ray shows small left pleural effusion and a very small right pleural effusion. CARDIOLOGY STUDIES EKG shows ventricular paced rhythm. IMPRESSION Symptoms most suggestive of unstable angina, possible congestive heart failure in a 66-year-old white female with a history of multiple medical problems including aortic valve disease status post St. Bao aortic valve replacement 1989, asthma, chronic atrial fibrillation, hypertension, hyperlipidemia, multiple sclerosis, history of pacemaker implant. Recent symptomatology with exertional chest discomfort is most suggestive of angina in overall unstable pattern. So far she has had no definite episodes occurring at rest. In the last several days she has also had signs and symptoms of congestive heart failure including orthopnea, increasing dyspnea, pedal edema. Exam also is suggestive of congestive heart failure with elevated jugular venous pressure. The patient also has bilateral small pleural effusions on chest x-ray. The precipitating factor for her congestive heart failure is not entirely clear. It may be acute myocardial ischemia. She did have an echo very recently showing normal left ventricular and normal aortic valve replacement function. She did have moderate right ventricular enlargement with mildly reduced right ventricular systolic function on that echo, of unclear etiology. The patient did undergo a ventilation perfusion scan to rule out chronic pulmonary emboli; this test was low probability. Overall, in light of her unstable symptoms and possible acute congestive heart failure I have recommended she undergo cardiac catheterization for most definitive evaluation of her coronary anatomy. The nature of this procedure and potential risks including but not limited to , myocardial infarction, stroke, arrhythmia, bleeding, infection, renal failure have been outlined with the patient. She agrees to proceed. RECOMMENDATIONS 1. Continue her usual home cardiac medications. 2. Continue intravenous Lasix diuresis. 3. Followup her renal indices in the next 3 days. 4. Recommend cardiac catheterization, but not until her INR is less than about 2.5 Dave Bajwa MD [facility] /6:01 PM /8:41 PM MTDKarolina
[2017-02-14] VITALS (16 sets, daily range): BP systolic 105–158; BP diastolic 53–76; PULSE 57–74; RESP 16–18; TEMP 97.6–98.4; O2SAT 92–100
[2017-02-14] MEDS ORDERED: ACETAMINOPHEN/HYDROcodone 325 MG/5 MG TAB PO ONE (00:45)
[2017-02-14] MEDS: INSULIN ASPART SUPPLEMENTAL SCALE SQ SCH ×4 (08:00→20:52)
--- NOTE | 2017-02-14 09:13 | PD.CARD.PN ---
Subjective Subjective Remarks Dyspnea overall better. No CP this morning. No PND, dizziness, palpitations. Objective Medications Item Value Date Time Furosemide 40 mg 02/13/17 1800 (Lasix Inj) BID@09,18/IV PUSH 02/13/17 1749 Losartan Potassium 25 mg 02/13/17 0900 (Cozaar) DAILY/PO 02/13/17 0956 Metoprolol 12.5 mg 02/13/17 0900 Tartrate BID/PO 02/13/172050 (Lopressor) Potassium Chloride 20 meq 02/13/17 0900 (KCl) DAILY/PO 02/13/17 0954 Vital Signs / I&O Vital Signs Date Time Temp Pulse Resp B/P (MAP) Pulse Ox O2 Delivery O2 Flow Rate FiO2 02/14/17 07:32 97.7 57 18 117/56 (76) 97 02/14/17 04:01 98.4 60 18 133/62 (85) 98 02/14/17 04:00 66 02/14/17 03:46 98.4 59 18 109/59 (76) 92 02/14/17 00:00 60 02/13/17 20:59 98.2 59 18 134/61 (85) 100 02/13/17 20:00 60 02/13/17 16:00 98.0 60 20 141/63 (89) 100 02/13/17 15:02 60 02/13/17 12:26 97.6 59 17 161/68 (99) 100 02/13/17 09:45 60 I/O 02/13/17 02/13/17 02/13/17 02/14/17 02/14/17 02/14/17 07:00 15:00 23:00 07:00 15:00 23:00 Intake Total 520 ml Output Total 300 ml Balance 520 ml -300 ml Intake Oral 520 ml Output Urine Total 300 ml # Voids 1 1 # Bowel Movements 1 Physical Exam GENERAL: Well developed, well nourished. No acute distress. HEENT: Jugular venous pressure ~8 cm water. CHEST: Minimal basilar crackles. CARDIAC: Irregular rate and rhythm without S3, S4, II/ HUONG base. Upson AVR sounds. ABDOMEN: Soft, nontender, no hepatosplenomegaly. Bowel sounds present. EXTREMITIES: No clubbing, cyanosis. 1+ pedal edema. Laboratory Laboratory Tests Test 02/13/17 13:05 Prothrombin Time 69.2 SEC Prothromb Time International Ratio 5.8 RATIO Imaging Last 48 hours Impressions Chest X-Ray 02/12/172033 Signed Impressions: Service Date/Time: Friday, February 12, 2017 20:51 - CONCLUSION: 1. Small left pleural effusion and tiny right pleural effusion. 2. Cardiomegaly. Jaycob Camara MD Assessment and Plan Problem List: (1) Unstable angina ICD Codes: I20.0 - Unstable angina Status: Acute Plan: No further chest discomfort. Stable overnight. Cardiac enzymes negative for OH. In light of acute CHF, unstable nature of CP symptoms, recommend cath hopefully Friday if INR down to < 2.5. Will have coverage see patient PRN over the weekend. (2) Congestive heart failure (CHF) ICD Codes: I50.9 - Heart failure, unspecified Status: Acute Plan: Symptomatically improved. Precipitating factor for CHF not entirely clear. Recent echo showed normal LV function, normal AVR function. The pedal edema likely in part due to mild RV dysfunction, etiology also unclear. Recent V/Q scan low probability. REC continued diuresis over the weekend, continue beta keira/ARB (3) Chronic atrial fibrillation ICD Codes: I48.2 - Chronic atrial fibrillation Status: Chronic Plan: Stable. No HR control issues. INR pending this morning. Hold warfarin in anticipation of cath Friday. (4) History of aortic valve replacement ICD Codes: Z95.2 - Presence of prosthetic heart valve Status: Chronic Plan: Normal AVR function by recent echo in the office. Code Status full code Discussed Condition With patient Problem Qualifiers (1) Congestive heart failure (CHF): Gui Buitrago MD Feb 14, 2017 09:13
--- NOTE | 2017-02-14 09:46 | HHI.PR ---
Subjective Remarks The patient said that she had some numbness in her legs overnight, especially the left one. She thought maybe it was because of the position she kept it in while she was sleeping. She said she was hoping to get the catheterization done on Friday. Objective Vitals Vital Signs Date Time Temp Pulse Resp B/P (MAP) Pulse Ox O2 Delivery O2 Flow Rate FiO2 02/14/17 07:32 97.7 57 18 117/56 (76) 97 02/14/17 04:01 98.4 60 18 133/62 (85) 98 02/14/17 04:00 66 02/14/17 03:46 98.4 59 18 109/59 (76) 92 02/14/17 00:00 60 02/13/17 20:59 98.2 59 18 134/61 (85) 100 02/13/17 20:00 60 02/13/17 16:00 98.0 60 20 141/63 (89) 100 02/13/17 15:02 60 02/13/17 12:26 97.6 59 17 161/68 (99) 100 02/13/17 09:45 60 I/O 02/13/17 02/13/17 02/13/17 02/14/17 02/14/17 02/14/17 07:00 15:00 23:00 07:00 15:00 23:00 Intake Total 520 ml Output Total 300 ml Balance 520 ml -300 ml Intake Oral 520 ml Output Urine Total 300 ml # Voids 1 1 # Bowel Movements 1 Result Diagram: 02/12/17211902/12/172119 Imaging Last Impressions Chest X-Ray 02/12/172033 Signed Impressions: Service Date/Time: Sunday, February 12, 2017 20:51 - CONCLUSION: 1. Small left pleural effusion and tiny right pleural effusion. 2. Cardiomegaly. Jaycob Camara MD Objective Remarks GENERAL: This is a well-nourished, well-developed patient, in no apparent distress. HEENT: Head is atraumatic and normocephalic. Neck is supple without lymphadenopathy and trachea is midline. + JVD. CARDIOVASCULAR: Grade 2 systolic murmur appreciated. RESPIRATORY: Clear to auscultation. Breath sounds equal bilaterally. No wheezes , rales, or rhonchi. GASTROINTESTINAL: Abdomen is nontender, nondistended. Abdomen soft. No obvious pulsatile mass or bruit. No CVA tenderness. Strong femoral pulses bilaterally. Normal bowel sounds in all quadrants. MUSCULOSKELETAL: There is 2+ pitting edema in the bilateral lower extremities with stasis dermatitis. NEUROLOGICAL: Patient is alert and oriented. Cranial nerves 2-12 are grossly intact. No focal deficits and speech is clear. PSYCH: Mood and affect appropriate. Medications and IVs Current Medications Medications (Trade) Dose Ordered Sig/Love Route Start Time Stop Time Status Last Admin (NS Flush) 2 ml UNSCH PRN IVF 02/12/17 20:45 02/13/17 09:54 (Cozaar) 25 mg DAILY PO 02/13/17 09:00 02/13/17 09:56 (Lopressor) 12.5 mg BID PO 02/13/17 09:00 02/13/17 20:51 (Singulair) 10 mg HS PO 02/13/17 21:00 02/13/17 20:51 (KCl) 20 meq DAILY PO 02/13/17 09:00 02/13/17 09:54 (Zanaflex) 4 mg HS PO 02/13/17 21:00 02/13/17 20:52 (Protonix) 20 mg BID PO 02/13/17 09:15 02/13/17 20:51 (Zofran Odt) 4 mg BID PO 02/13/17 09:00 02/13/17 20:51 (NovoLOG SUPPLEMENTAL SCALE) 1 ACHS SLIDING SCALE SQ 02/13/17 12:00 (D50w (Vial) Inj) 25 ml UNSCH PRN IV 02/13/17 09:00 (Glucagon Inj) 1 mg UNSCH PRN IM/SQ 02/13/17 09:00 (Vitamin D3) 2,000 units DAILY PO 02/13/17 10:45 02/13/17 12:01 (Mag-Ox) 400 mg BID PO 02/13/17 11:00 02/13/17 20:52 (Lioresal) 20 mg QID PRN PO 02/13/17 11:15 02/13/17 17:50 (Zyloprim) 300 mg DAILY PO 02/13/17 12:00 02/13/17 12:08 (Lasix Inj) 40 mg BID@18 IV PUSH 02/13/17 18:00 02/13/17 17:49 Sodium Chloride 1,000 ml @ 100 mls/hr Q10H IV 02/13/17 18:00 02/18/17 17:59 02/13/17 20:51 (Benadryl) 50 mg CHRONIC CARE NURSE PO 02/13/17 18:00 02/17/17 17:59 (Valium) 10 mg CHRONIC CARE NURSE PO 02/13/17 18:00 02/17/17 17:59 (Nitroglycerin 2% Oint) 0.5 inch Q8HR TOPICAL 02/14/17 09:15 UNV Current Medications Medications (Trade) Dose Ordered Sig/Love Route Start Time Stop Time Status Last Admin (NS Flush) 2 ml UNSCH PRN IVF 02/12/17 20:45 02/13/17 09:54 (Cozaar) 25 mg DAILY PO 02/13/17 09:00 02/13/17 09:56 (Lopressor) 12.5 mg BID PO 02/13/17 09:00 02/13/17 20:51 (Singulair) 10 mg HS PO 02/13/17 21:00 02/13/17 20:51 (KCl) 20 meq DAILY PO 02/13/17 09:00 02/13/17 09:54 (Zanaflex) 4 mg HS PO 02/13/17 21:00 02/13/17 20:52 (Protonix) 20 mg BID PO 02/13/17 09:15 02/13/17 20:51 (Zofran Odt) 4 mg BID PO 02/13/17 09:00 02/13/17 20:51 (NovoLOG SUPPLEMENTAL SCALE) 1 ACHS SLIDING SCALE SQ 02/13/17 12:00 (D50w (Vial) Inj) 25 ml UNSCH PRN IV 02/13/17 09:00 (Glucagon Inj) 1 mg UNSCH PRN IM/SQ 02/13/17 09:00 (Vitamin D3) 2,000 units DAILY PO 02/13/17 10:45 02/13/17 12:01 (Mag-Ox) 400 mg BID PO 02/13/17 11:00 02/13/17 20:52 (Lioresal) 20 mg QID PRN PO 02/13/17 11:15 02/13/17 17:50 (Zyloprim) 300 mg DAILY PO 02/13/17 12:00 02/13/17 12:08 (Lasix Inj) 40 mg BID@09,18 IV PUSH 02/13/17 18:00 02/13/17 17:49 Sodium Chloride 1,000 ml @ 100 mls/hr Q10H IV 02/13/17 18:00 02/18/17 17:59 02/13/17 20:51 (Benadryl) 50 mg CHRONIC CARE NURSE PO 02/13/17 18:00 02/17/17 17:59 (Valium) 10 mg CHRONIC CARE NURSE PO 02/13/17 18:00 02/17/17 17:59 (Nitroglycerin 2% Oint) 0.5 inch Q8HR TOPICAL 02/14/17 09:15 UNV A/P Assessment and Plan Chest pain/ Acute Systolic CHF Seems to be exacerbated by chemotherapy. Initially admitted to the chest pain center. Serial enzymes negative. She has pleural effusions and lower extremity edema. Cardiology consult appreciated. - continue Lasix 40 mg IV BID. - follow Is and Os, daily weights. - cardiac cath per cardiology once INR is below 2.5. - telemetry. Non-Hodgkin's lymphoma On chemotherapy. - Continue management with her oncologist after discharge. Renal insufficiency Acute on chronic. - monitor BMP while being diuresed. - Avoid nephrotoxic agents. A. fib The patient is on warfarin. INR is supratherapeutic. - Hold warfarin at this time and monitor INR. Diabetes Glucose well controlled. - sliding scale insulin coverage. PPx: INR is elevated Discharge Planning Awaiting cath Kris Blevins DO Feb 14, 2017 09:46
[2017-02-14] MEDS: NITROGLYCERIN 2% OINT 1 GM PACKET TOPICAL SCH ×2 (10:00→17:34)
[2017-02-14] MEDS: LOSARTAN 25 MG TAB PO SCH (10:29)
[2017-02-14] MEDS: ALLOPURINOL 300 MG TAB PO SCH (10:29)
[2017-02-14] MEDS: METOPROLOL TARTRATE 25 MG TAB PO SCH ×2 (10:29→20:45)
[2017-02-14] MEDS: ONDANSETRON ODT 4 MG TAB PO SCH ×2 (10:30→20:46)
[2017-02-14] MEDS: POTASSIUM CHLORIDE 20 MEQ CONTROLLED RELEASE TAB PO SCH (10:30)
[2017-02-14] MEDS: PANTOPRAZOLE SOD 20 MG DELAYED RELEASE TAB PO SCH ×2 (10:30→20:45)
[2017-02-14] MEDS: MAGNESIUM OXIDE 400 MG TAB PO SCH ×2 (10:30→20:46)
[2017-02-14] MEDS: CHOLECALCIFEROL (VIT D3) 1000 UNIT TAB PO SCH (10:30)
[2017-02-14] MEDS: SODIUM CHLOR 0.9% 1000 ML INJ 1,000 ML IV SCH ×3 (10:31→21:33)
[2017-02-14] MEDS: FUROSEMIDE 40 MG/4 ML VIAL IV PUSH SCH ×2 (10:31→17:34)
[2017-02-14] MEDS: SODIUM CHLORIDE 0.9% FLUSH 10 ML FLUSH IVF PRN (10:31)
[2017-02-14 12:06] LABS: HEMATOCRIT 30.5 % (35.0-46.0); MEAN CELL VOLUME 93.4 FL (80.0-100.0); MEAN CORPUSCULAR HEMOGLOBIN 30.9 PG (27.0-34.0); MEAN CORPUSCULAR HGB CONC 33.1 % (32.0-36.0); PLATELET COUNT 144 TH/MM3 (150-450); RED BLOOD COUNT 3.27 MIL/MM3 (4.00-5.30); RED CELL DISTRIBUTION WIDTH 16.8 % (11.6-17.2); REVIEW FLAG FINAL; WHITE BLOOD COUNT 5.1 TH/MM3 (4.0-11.0)
[2017-02-14 12:14] LABS: INTERNATIONAL NORMALIZED RATIO 3.4 RATIO; PROTHROMBIN TIME - PATIENT 39.4 SEC (9.8-11.6)
[2017-02-14 12:31] LABS: BICARBONATE 29.2 MEQ/L (21.0-32.0); MAGNESIUM 2.3 MG/DL (1.5-2.5); POTASSIUM 3.9 MEQ/L (3.5-5.1)
[2017-02-14] MEDS: MONTELUKAST SODIUM 10 MG TAB PO SCH (20:46)
[2017-02-15] VITALS (24 sets, daily range): BP systolic 96–159; BP diastolic 53–76; PULSE 59–87; RESP 16; TEMP 97.5–98; O2SAT 96–100
[2017-02-15] MEDS: NITROGLYCERIN 2% OINT 1 GM PACKET TOPICAL SCH ×3 (00:15→17:20)
[2017-02-15] MEDS: BACLOFEN 20 MG TAB PO PRN ×4 (00:19→21:44)
[2017-02-15 05:57] LABS: INTERNATIONAL NORMALIZED RATIO 2.2 RATIO; PROTHROMBIN TIME - PATIENT 25.3 SEC (9.8-11.6)
[2017-02-15] MEDS: SODIUM CHLOR 0.9% 1000 ML INJ 1,000 ML IV SCH (07:20)
[2017-02-15] MEDS: INSULIN ASPART SUPPLEMENTAL SCALE SQ SCH ×4 (07:33→21:00)
[2017-02-15] MEDS: METOPROLOL TARTRATE 25 MG TAB PO SCH ×2 (09:40→21:51)
[2017-02-15] MEDS: LOSARTAN 25 MG TAB PO SCH (09:40)
[2017-02-15] MEDS: ALLOPURINOL 300 MG TAB PO SCH (09:40)
[2017-02-15] MEDS: POTASSIUM CHLORIDE 20 MEQ CONTROLLED RELEASE TAB PO SCH (09:40)
[2017-02-15] MEDS: ONDANSETRON ODT 4 MG TAB PO SCH ×2 (09:40→21:46)
[2017-02-15] MEDS: CHOLECALCIFEROL (VIT D3) 1000 UNIT TAB PO SCH (09:40)
[2017-02-15] MEDS: PANTOPRAZOLE SOD 20 MG DELAYED RELEASE TAB PO SCH ×2 (09:40→21:45)
[2017-02-15] MEDS: FUROSEMIDE 40 MG/4 ML VIAL IV PUSH SCH ×2 (09:41→17:20)
[2017-02-15] MEDS: MAGNESIUM OXIDE 400 MG TAB PO SCH ×2 (09:41→21:45)
[2017-02-15] MEDS ORDERED: HEPARIN-D5W 25,000 U/250 ML 250 ML IV SCH (12:30)
--- NOTE | 2017-02-15 12:31 | HHI.PR ---
Subjective Remarks Follow-up chest pain. Transient chest pain while brushing her teeth early today. Improving shortness of breath. History of AVR on Coumadin agrees to be on heparin drip. History of thrombocytopenia while on heparin drip in 2005. Received heparin drip 2 more times since then with no adverse reaction. Discussed with RN Objective Vitals Vital Signs Date Time Temp Pulse Resp B/P (MAP) Pulse Ox O2 Delivery O2 Flow Rate FiO2 02/15/17 12:07 60 02/15/17 11:00 97.7 59 16 128/72 (90) 100 02/15/17 11:00 82 02/15/17 10:02 60 02/15/17 09:14 60 02/15/17 08:00 97.5 60 16 148/76 (100) 99 02/15/17 08:00 60 02/15/17 06:13 60 02/15/17 05:00 60 02/15/17 04:28 60 02/15/17 03:43 97.9 61 96/53 (67) 96 02/15/17 03:00 60 02/15/17 02:00 60 02/15/17 01:00 60 02/15/17 00:00 60 02/14/17 23:00 97.6 60 105/53 (70) 96 02/14/17 23:00 60 02/14/17 22:00 62 02/14/17 21:00 60 02/14/17 20:00 60 02/14/17 19:00 97.6 60 138/74 (95) 100 02/14/17 19:00 60 02/14/17 16:41 58 02/14/17 16:30 98.4 74 18 158/76 (103) 97 02/14/17 15:36 97.9 60 16 131/59 (83) 100 02/14/17 15:00 62 I/O 02/14/17 02/14/17 02/14/17 02/15/17 02/15/17 02/15/17 07:00 15:00 23:00 07:00 15:00 23:00 Intake Total 1100 ml 480 ml Output Total 300 ml 1000 ml 5200 ml Balance -300 ml 100 ml -4720 ml Intake Oral 500 ml 480 ml IV Total 600 ml Output Urine Total 300 ml 1000 ml 5200 ml Result Diagram: 02/14/17 1145 02/14/17 1145 Imaging Last Impressions Chest X-Ray 02/12/172033 Signed Impressions: Service Date/Time: Sunday, February 12, 2017 20:51 - CONCLUSION: 1. Small left pleural effusion and tiny right pleural effusion. 2. Cardiomegaly. Jaycob Camara MD Objective Remarks Well-developed, well-nourished in no distress Pupils equally reactive to light Neck supple no JVD Equal in expansion clear to auscultation Irregularly irregular with systolic murmur and metallic sound Abdomen soft nontender Extremities with pitting edema no cyanosis Alert and oriented nonfocal A/P Problem List: (1) Chest pain ICD Code: R07.9 - Chest pain, unspecified Status: Acute Assessment and Plan Chest pain/ Acute CHF with preserved systolic function Seems to be exacerbated by chemotherapy. Initially admitted to the chest pain center. Serial enzymes negative. She has pleural effusions and lower extremity edema. Cardiology consult appreciated. - continue Lasix 40 mg IV BID, beta keira and are - follow Is and Os, daily weights. - cardiac cath per cardiology once INR is below 2.5. - telemetry. Non-Hodgkin's lymphoma On chemotherapy. - Continue management with her oncologist after discharge. Chronic kidney disease stage III - monitor BMP while being diuresed. - Avoid nephrotoxic agents. A. fib with CVR - Hold warfarin at this time and monitor INR. AVR -Bridge with heparin drip patient agrees Diabetes Glucose well controlled. - sliding scale insulin coverage. PPx: INR is elevated Discharge Planning When cleared by cardiology Problem Qualifiers (1) Chest pain: Qualified Codes: R07.9 - Chest pain, unspecified Walker Rosado MD Feb 15, 2017 12:31
[2017-02-15 19:24] LABS: HEMATOCRIT 30.2 % (35.0-46.0); MEAN CELL VOLUME 92.9 FL (80.0-100.0); MEAN CORPUSCULAR HEMOGLOBIN 31.6 PG (27.0-34.0); PLATELET COUNT 134 TH/MM3 (150-450); RED BLOOD COUNT 3.25 MIL/MM3 (4.00-5.30); RED CELL DISTRIBUTION WIDTH 16.6 % (11.6-17.2); REVIEW FLAG FINAL; WHITE BLOOD COUNT 5.6 TH/MM3 (4.0-11.0)
[2017-02-15 19:42] LABS: APTT (PATIENT) 55.5 SEC (24.3-30.1)
[2017-02-15] MEDS ORDERED: diphenhydrAMINE HCL 25 MG CAP PO ONE (21:15)
[2017-02-15] MEDS: MONTELUKAST SODIUM 10 MG TAB PO SCH (21:45)
[2017-02-16] VITALS (25 sets, daily range): BP systolic 92–129; BP diastolic 42–71; PULSE 53–72; RESP 16; TEMP 97–98.1; O2SAT 97–100
[2017-02-16 01:47] LABS: APTT (PATIENT) 62.3 SEC (24.3-30.1)
[2017-02-16] MEDS: NITROGLYCERIN 2% OINT 1 GM PACKET TOPICAL SCH ×3 (02:00→17:17)
[2017-02-16] MEDS: SODIUM CHLOR 0.9% 1000 ML INJ 1,000 ML IV SCH ×2 (04:16→13:29)
[2017-02-16] MEDS: INSULIN ASPART SUPPLEMENTAL SCALE SQ SCH ×4 (07:32→21:00)
[2017-02-16] MEDS: MAGNESIUM OXIDE 400 MG TAB PO SCH ×2 (08:30→20:21)
[2017-02-16] MEDS: POTASSIUM CHLORIDE 20 MEQ CONTROLLED RELEASE TAB PO SCH (08:30)
[2017-02-16] MEDS: ONDANSETRON ODT 4 MG TAB PO SCH ×2 (08:30→20:20)
[2017-02-16] MEDS: ALLOPURINOL 300 MG TAB PO SCH (08:30)
[2017-02-16] MEDS: CHOLECALCIFEROL (VIT D3) 1000 UNIT TAB PO SCH (08:31)
[2017-02-16] MEDS: FUROSEMIDE 40 MG/4 ML VIAL IV PUSH SCH ×2 (08:31→17:19)
[2017-02-16] MEDS: PANTOPRAZOLE SOD 20 MG DELAYED RELEASE TAB PO SCH ×2 (08:31→20:20)
[2017-02-16] MEDS: METOPROLOL TARTRATE 25 MG TAB PO SCH ×2 (08:33→20:20)
[2017-02-16] MEDS: LOSARTAN 25 MG TAB PO SCH (08:33)
[2017-02-16] MEDS: BACLOFEN 20 MG TAB PO PRN (08:40)
--- NOTE | 2017-02-16 10:15 | HHI.PR ---
Subjective Remarks Follow chest pain and heart failure. Patient denies any symptoms no chest pain and shortness of breath. She is diuresing well. No bleeding on heparin drip. Discussed with RN Objective Vitals Vital Signs Date Time Temp Pulse Resp B/P (MAP) Pulse Ox O2 Delivery O2 Flow Rate FiO2 02/16/17 10:02 72 02/16/17 09:33 60 02/16/17 08:00 97.0 61 16 123/71 (88) 97 02/16/17 08:00 60 02/16/17 06:09 60 02/16/17 05:10 59 02/16/17 04:19 60 02/16/17 03:49 60 02/16/17 02:22 53 02/16/17 01:27 60 02/16/17 00:22 60 02/15/17 23:00 97.8 61 16 125/66 (85) 99 02/15/17 23:00 60 02/15/17 22:00 60 02/15/17 21:00 60 02/15/17 20:00 62 02/15/17 20:00 98.0 60 16 135/68 (90) 99 02/15/17 19:30 60 02/15/17 18:12 60 02/15/17 17:03 60 02/15/17 16:12 60 02/15/17 15:18 97.5 59 16 159/72 (101) 100 02/15/17 15:18 79 02/15/17 14:05 60 02/15/17 13:05 87 02/15/17 12:07 60 02/15/17 11:00 97.7 59 16 128/72 (90) 100 02/15/17 11:00 82 I/O 02/15/17 02/15/17 02/15/17 02/16/17 02/16/17 02/16/17 07:00 15:00 23:00 07:00 15:00 23:00 Intake Total 480 ml 520 ml 440 ml Output Total 5200 ml 2400 ml 1300 ml Balance -4720 ml -1880 ml -860 ml Intake Oral 480 ml 480 ml 440 ml IV Total 40 ml Output Urine Total 5200 ml 2400 ml 1300 ml # Bowel Movements 0 Result Diagram: 02/15/17 1900 02/14/17 1145 Objective Remarks Well-developed, well-nourished in no distress Pupils equally reactive to light Neck supple no JVD Equal in expansion clear to auscultation Irregularly irregular with systolic murmur and metallic sound Abdomen soft nontender Extremities with pitting edema no cyanosis Alert and oriented nonfocal No significant change in PE from previous A/P Problem List: (1) Chest pain ICD Code: R07.9 - Chest pain, unspecified Status: Acute Assessment and Plan Chest pain Acute CHF with preserved systolic function - Diuresing well continue Lasix 40 mg IV BID, beta keira and arb - follow Is and Os, daily weights. - cardiac cath in the morning - telemetry. Non-Hodgkin's lymphoma On chemotherapy. - Continue management with her oncologist after discharge. Chronic kidney disease stage III - monitor BMP while being diuresed. Labs pending - Avoid nephrotoxic agents. A. fib with CVR - Hold warfarin at this time and monitor INR. AVR -Continue heparin drip patient agrees Diabetes Glucose well controlled. - sliding scale insulin coverage. PPx: Heparin drip Follow-up pending labs of CBC, BMP and INR Discharge Planning When cleared by cardiology Problem Qualifiers (1) Chest pain: Qualified Codes: R07.9 - Chest pain, unspecified Walker Rosado MD Feb 16, 2017 10:15
[2017-02-16] MEDS ORDERED: NITR1SUB3 SL (10:24)
--- NOTE | 2017-02-16 10:25 | HHI.DCPOC ---
Discharge Care Plan Diagnosis: (1) Congestive heart failure (CHF) (2) Chest pain Your Health Problems Are: Difficulty with ADL Exercise Tolerance Goals to Promote Your Health * To prevent worsening of your condition and complications * To maintain your health at the optimal level Directions to Meet Your Goals Take your medications as prescribed Follow your dietary instruction Follow activity as directed Keep your appointments as scheduled Take your immunizations and boosters as scheduled If your symptoms worsen call your PCP, if no PCP go to Urgent Care Center or Emergency Room Smoking is Dangerous to Your Health. Avoid second hand smoke Call the 24-hour hour crisis hotline for domestic abuse at Walker Rosado MD Feb 16, 2017 10:24
[2017-02-16 10:31] LABS: AUTOMATED NEUTROPHIL # 3.5 TH/MM3 (1.8-7.7); BASOPHIL % 0.8 % (0.0-2.0); EOSINOPHIL # 0.1 TH/MM3 (0-0.4); EOSINOPHIL % 3.7 % (0.0-4.0); HEMATOCRIT 28.1 % (35.0-46.0); HEMO FLAGS DIFF FINAL; LYMPH % 1.4 % (9.0-44.0); LYMPHOCYTE # 0.1 TH/MM3 (1.0-4.8); MEAN CELL VOLUME 93.6 FL (80.0-100.0); MEAN CORPUSCULAR HEMOGLOBIN 31.7 PG (27.0-34.0); MEAN CORPUSCULAR HGB CONC 33.9 % (32.0-36.0); MONO % 6.7 % (0.0-8.0); NEUT % 87.4 % (16.0-70.0); PLATELET COUNT 106 TH/MM3 (150-450); RED CELL DISTRIBUTION WIDTH 16.7 % (11.6-17.2)
[2017-02-16 10:34] LABS: INTERNATIONAL NORMALIZED RATIO 1.4 RATIO; PROTHROMBIN TIME - PATIENT 16.2 SEC (9.8-11.6)
[2017-02-16 10:48] LABS: APTT (PATIENT) 91.2 SEC (24.3-30.1)
[2017-02-16 10:59] LABS: BICARBONATE 31.3 MEQ/L (21.0-32.0); MAGNESIUM 2.4 MG/DL (1.5-2.5); POTASSIUM 3.8 MEQ/L (3.5-5.1)
[2017-02-16 13:16] LABS: APTT (PATIENT) 62.2 SEC (24.3-30.1)
[2017-02-16] MEDS: MONTELUKAST SODIUM 10 MG TAB PO SCH (20:20)
[2017-02-16] MEDS: ACETAMINOPHEN 325 MG TAB PO PRN (20:49)
[2017-02-17] VITALS (28 sets, daily range): BP systolic 101–136; BP diastolic 59–73; PULSE 59–63; RESP 16–18; TEMP 97.5–98.1; O2SAT 94–100
[2017-02-17] MEDS: NITROGLYCERIN 2% OINT 1 GM PACKET TOPICAL SCH ×2 (02:00→10:07)
[2017-02-17] MEDS: SODIUM CHLOR 0.9% 1000 ML INJ 1,000 ML IV SCH ×3 (02:00→19:45)
[2017-02-17 04:28] LABS: AUTOMATED NEUTROPHIL # 2.4 TH/MM3 (1.8-7.7); BASOPHIL % 1.1 % (0.0-2.0); EOSINOPHIL # 0.1 TH/MM3 (0-0.4); LYMPH % 3.3 % (9.0-44.0); LYMPHOCYTE # 0.1 TH/MM3 (1.0-4.8); MEAN CELL VOLUME 93.4 FL (80.0-100.0); MEAN CORPUSCULAR HEMOGLOBIN 31.3 PG (27.0-34.0); MEAN CORPUSCULAR HGB CONC 33.5 % (32.0-36.0); MONO % 8.2 % (0.0-8.0); NEUT % 83.4 % (16.0-70.0); PLATELET COUNT 93 TH/MM3 (150-450); RED BLOOD COUNT 2.78 MIL/MM3 (4.00-5.30); RED CELL DISTRIBUTION WIDTH 16.5 % (11.6-17.2); WHITE BLOOD COUNT 2.9 TH/MM3 (4.0-11.0)
[2017-02-17 04:37] LABS: INTERNATIONAL NORMALIZED RATIO 1.3 RATIO; PROTHROMBIN TIME - PATIENT 14.2 SEC (9.8-11.6)
[2017-02-17 04:44] LABS: HEMO FLAGS AUTO DIFF
[2017-02-17 04:57] LABS: BICARBONATE 31.7 MEQ/L (21.0-32.0); MAGNESIUM 2.4 MG/DL (1.5-2.5)
[2017-02-17 06:24] LABS: PLATELET ESTIMATE SMEAR LOW (NORMAL); PLATELET MORPHOLOGY NORMAL (NORMAL); SCAN/DIFF AUTO DIFF CONFIRMED
--- NOTE | 2017-02-17 07:42 | PD.CARD.PN ---
Subjective Subjective Remarks Dyspnea better. No CP, palpitations, dizziness, orthopnea. Slept fairly well. Objective Medications Item Value Date Time Heparin Sodium/ 250 ml @ 12 mls/hr 02/15/17 1230 Dextrose TITRATE/IV 02/15/17 1334 Nitroglycerin 0.5 inch 02/14/17 1000 (Nitroglycerin Q8H/TOPICAL 2% Oint) Furosemide 40 mg 02/13/17 1800 (Lasix Inj) BID@09,18/IV PUSH 02/16/17 1719 Losartan Potassium 25 mg 02/13/17 0900 (Cozaar) DAILY/PO 02/16/17 0833 Metoprolol 12.5 mg 02/13/17 0900 Tartrate BID/PO 02/16/17 2020 (Lopressor) Potassium Chloride 20 meq 02/13/17 0900 (KCl) DAILY/PO 02/16/17 0830 Vital Signs / I&O Vital Signs Date Time Temp Pulse Resp B/P (MAP) Pulse Ox O2 Delivery O2 Flow Rate FiO2 02/17/17 06:13 60 02/17/17 05:05 62 02/17/17 04:36 59 02/17/17 03:50 97.8 60 16 101/59 (73) 97 02/17/17 03:01 60 02/17/17 02:06 60 02/17/17 01:01 60 02/17/17 00:19 60 02/16/17 23:50 98.1 62 16 92/42 (59) 97 02/16/17 23:06 60 02/16/17 22:00 60 02/16/17 21:00 60 02/16/17 20:44 59 02/16/17 20:20 97.6 60 16 129/65 (86) 99 02/16/17 19:00 72 02/16/17 18:01 60 02/16/17 17:13 60 02/16/17 16:16 60 02/16/17 15:41 60 02/16/17 15:41 97.4 61 16 124/66 (85) 100 02/16/17 14:04 60 02/16/17 13:00 62 02/16/17 12:00 72 02/16/17 11:38 97.0 60 16 125/68 (87) 100 02/16/17 11:38 60 02/16/17 10:02 72 02/16/17 09:33 60 02/16/17 08:00 97.0 61 16 123/71 (88) 97 02/16/17 08:00 60 I/O 02/16/17 02/16/17 02/16/17 02/17/17 02/17/17 02/17/17 07:00 15:00 23:00 07:00 15:00 23:00 Intake Total 440 ml 700 ml 360 ml Output Total 1300 ml 2100 ml 560 ml Balance -860 ml -1400 ml -200 ml Intake Oral 440 ml 600 ml 360 ml IV Total 100 ml Output Urine Total 1300 ml 2100 ml 560 ml # Bowel Movements 1 Physical Exam GENERAL: Well developed, well nourished. No acute distress. HEENT: Jugular venous pressure normal. CHEST: Minimal basilar crackles. CARDIAC: Irregular rate and rhythm without S3, S4, II/ HUONG base. [place] AVR sounds. ABDOMEN: Soft, nontender, no hepatosplenomegaly. Bowel sounds present. EXTREMITIES: No clubbing, cyanosis. 1+ pedal edema. Laboratory Laboratory Tests Test 02/16/17 09:55 02/16/17 10:33 02/16/17 12:15 02/17/17 03:10 White Blood Count 4.0 TH/MM3 2.9 TH/MM3 Red Blood Count 3.00 MIL/MM3 2.78 MIL/MM3 Hemoglobin 9.5 GM/DL 8.7 GM/DL Hematocrit 28.1 % 26.0 % Mean Corpuscular Volume 93.6 FL 93.4 FL Mean Corpuscular Hemoglobin 31.7 PG 31.3 PG Mean Corpuscular Hemoglobin Concent 33.9 % 33.5 % Red Cell Distribution Width 16.7 % 16.5 % Platelet Count 106 TH/MM3 93 TH/MM3 Mean Platelet Volume 8.1 FL 8.0 FL Neutrophils (%) (Auto) 87.4 % 83.4 % Lymphocytes (%) (Auto) 1.4 % 3.3 % Monocytes (%) (Auto) 6.7 % 8.2 % Eosinophils (%) (Auto) 3.7 % 4.0 % Basophils (%) (Auto) 0.8 % 1.1 % Neutrophils # (Auto) 3.5 TH/MM3 2.4 TH/MM3 Lymphocytes # (Auto) 0.1 TH/MM3 0.1 TH/MM3 Monocytes # (Auto) 0.3 TH/MM3 0.2 TH/MM3 Eosinophils # (Auto) 0.1 TH/MM3 0.1 TH/MM3 Basophils # (Auto) 0.0 TH/MM3 0.0 TH/MM3 CBC Comment DIFF FINAL AUTO DIFF Differential Comment AUTO DIFF CONFIRMED Prothrombin Time 16.2 SEC 14.2 SEC Prothromb Time International Ratio 1.4 RATIO 1.3 RATIO Activated Partial Thromboplast Time 91.2 SEC 62.2 SEC 63.0 SEC Blood Urea Nitrogen 29 MG/DL 26 MG/DL Creatinine 1.25 MG/DL 1.31 MG/DL Random Glucose 119 MG/DL 88 MG/DL Calcium Level 9.0 MG/DL 8.7 MG/DL Magnesium Level 2.4 MG/DL 2.4 MG/DL Sodium Level 143 MEQ/L 143 MEQ/L Potassium Level 3.8 MEQ/L 4.0 MEQ/L Chloride Level 106 MEQ/L 106 MEQ/L Carbon Dioxide Level 31.3 MEQ/L 31.7 MEQ/L Anion Gap 6 MEQ/L 5 MEQ/L Estimat Glomerular Filtration Rate 43 ML/MIN 41 ML/MIN Platelet Estimate LOW Platelet Morphology Comment NORMAL Red Cell Morphology Comment NORMAL Assessment and Plan Problem List: (1) Unstable angina ICD Codes: I20.0 - Unstable angina Status: Acute Plan: No further chest discomfort. Stable over the weekend. Cardiac enzymes negative for OR. In light of acute CHF, unstable nature of CP symptoms, recommend cath today. (2) Congestive heart failure (CHF) ICD Codes: I50.9 - Heart failure, unspecified Status: Acute Plan: Symptomatically improved. Good diuresis over the weekend. Precipitating factor for CHF not entirely clear. Recent echo showed normal LV function, normal AVR function. The pedal edema likely in part due to mild RV dysfunction, etiology also unclear. Recent V/Q scan low probability. REC consider change to oral diuretic; continue beta keira, ARB (3) Chronic atrial fibrillation ICD Codes: I48.2 - Chronic atrial fibrillation Status: Chronic Plan: Stable. No HR control issues. Continue heparin drip. Warfarin on hold for cath. (4) History of aortic valve replacement ICD Codes: Z95.2 - Presence of prosthetic heart valve Status: Chronic Plan: Normal AVR function by recent echo in the office. Code Status full code Discussed Condition With patient Problem Qualifiers (1) Congestive heart failure (CHF): Gui Buitrago MD Feb 17, 2017 07:42
[2017-02-17] MEDS: INSULIN ASPART SUPPLEMENTAL SCALE SQ SCH ×3 (08:00→20:53)
[2017-02-17] MEDS: LOSARTAN 25 MG TAB PO SCH (10:08)
[2017-02-17] MEDS: ALLOPURINOL 300 MG TAB PO SCH (10:08)
[2017-02-17] MEDS: PANTOPRAZOLE SOD 20 MG DELAYED RELEASE TAB PO SCH ×2 (10:08→20:54)
[2017-02-17] MEDS: MAGNESIUM OXIDE 400 MG TAB PO SCH ×2 (10:08→20:55)
[2017-02-17] MEDS: ONDANSETRON ODT 4 MG TAB PO SCH ×2 (10:09→20:55)
[2017-02-17] MEDS: METOPROLOL TARTRATE 25 MG TAB PO SCH ×2 (10:09→20:53)
[2017-02-17] MEDS: BACLOFEN 20 MG TAB PO PRN ×2 (10:10→17:16)
[2017-02-17] MEDS: CHOLECALCIFEROL (VIT D3) 1000 UNIT TAB PO SCH (10:10)
[2017-02-17] MEDS: POTASSIUM CHLORIDE 20 MEQ CONTROLLED RELEASE TAB PO SCH (10:10)
[2017-02-17] MEDS: FUROSEMIDE 40 MG/4 ML VIAL IV PUSH SCH ×2 (10:10→17:16)
--- NOTE | 2017-02-17 13:15 | HHI.PR ---
Subjective Remarks Follow-up chest pain and aVR. No further chest pain. No bleeding. Patient aware of acute thrombocytopenia states Dr. Mayberry case dw him as well as Dr Buitrago Objective Vitals Vital Signs Date Time Temp Pulse Resp B/P (MAP) Pulse Ox O2 Delivery O2 Flow Rate FiO2 02/17/17 11:50 97.6 60 18 126/67 (86) 100 02/17/17 11:34 60 02/17/17 10:00 60 02/17/17 09:00 59 02/17/17 08:17 97.5 60 18 136/72 (93) 96 Manual Cuff/Palpation 02/17/17 08:00 59 02/17/17 07:15 60 02/17/17 06:13 60 02/17/17 05:05 62 02/17/17 04:36 59 02/17/17 03:50 97.8 60 16 101/59 (73) 97 02/17/17 03:01 60 02/17/17 02:06 60 02/17/17 01:01 60 02/17/17 00:19 60 02/16/17 23:50 98.1 62 16 92/42 (59) 97 02/16/17 23:06 60 02/16/17 22:00 60 02/16/17 21:00 60 02/16/17 20:44 59 02/16/17 20:20 97.6 60 16 129/65 (86) 99 02/16/17 19:00 72 02/16/17 18:01 60 02/16/17 17:13 60 02/16/17 16:16 60 02/16/17 15:41 60 02/16/17 15:41 97.4 61 16 124/66 (85) 100 02/16/17 14:04 60 I/O 02/16/17 02/16/17 02/16/17 02/17/17 02/17/17 02/17/17 07:00 15:00 23:00 07:00 15:00 23:00 Intake Total 440 ml 700 ml 360 ml Output Total 1300 ml 2100 ml 560 ml Balance -860 ml -1400 ml -200 ml Intake Oral 440 ml 600 ml 360 ml IV Total 100 ml Output Urine Total 1300 ml 2100 ml 560 ml # Bowel Movements 1 Result Diagram: 02/17/1730902/17/17309 Imaging Last Impressions Chest X-Ray 02/12/172033 Signed Impressions: Service Date/Time: Sunday, February 12, 2017 20:51 - CONCLUSION: 1. Small left pleural effusion and tiny right pleural effusion. 2. Cardiomegaly. Jaycob Camara MD Objective Remarks Well-developed, well-nourished in no distress Pupils equally reactive to light Neck supple no JVD Equal in expansion clear to auscultation Irregularly irregular with systolic murmur and metallic sound Abdomen soft nontender Extremities with pitting edema no cyanosis Alert and oriented nonfocal No signs of bleeding A/P Problem List: (1) Chest pain ICD Code: R07.9 - Chest pain, unspecified Status: Acute Assessment and Plan Chest pain Acute CHF with preserved systolic function - Diuresing well continue Lasix 40 mg IV BID, beta keira and arb - follow Is and Os, daily weights. - cardiac cath today - telemetry. Non-Hodgkin's lymphoma On chemotherapy. - Continue management with her oncologist Chronic kidney disease stage III - monitor BMP while being diuresed. Labs stable - Avoid nephrotoxic agents. A. fib with CVR - Hold warfarin at this time and monitor INR. AVR -Continue heparin drip patient agrees Diabetes Glucose well controlled. - sliding scale insulin coverage. Acute thrombocytopenia on heparin drip. Check hit. 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 Mayberry PPx: Heparin drip Discharge Planning Not ready for discharge Problem Qualifiers (1) Chest pain: Qualified Codes: R07.9 - Chest pain, unspecified Walker Rosado MD Feb 17, 2017 13:15
--- NOTE | 2017-02-17 15:58 | CATHPROC ---
[employer] HIS Report Study Information Study Number Admission Scheduled Start Study Start [id number] Feb 14 2017 9:45AM 02/17/2017 Feb 17 2017 2:34PM [place] [facility] Cardiac Catheterization Admit Source Facility Department Other [facility] - Child Care Attendant School Physician and Clinical Staff Initial Gui Juarez [employer] Worker Josephine Lai,SAHIL Other cathlab, cathlab Recorder Zohra Messer,SHAKE BACKBOARD NOTCHER TECH2 Scrub Hosterman, Sonny,RT(R) Procedures Performed Procedure Location (Site) Vessel Name Coronary Angiograms LCA Left Coronary L Heart Cath Equipment Time Advertising Sales Agent Description Size Mfg Part Number Used/Scraped TRANSDUCER, TRUWAVE [id number] 14:38 BABIN EYH * Used W/STOCKCOCK *[id number] *[id number] *[id number] 14:38 MALLINCKRODT SYRINGE, ANGIOMAT 150ML 150ML *[id number] Used 2SUB MEDICAL CONCEPT DRAPE, RADIAL FEMORAL FULL 14:38 * [id number] *[id number] Used DEVELOPMENT BODY [id number] 14:38 StarShooter PACK, CCL CUSTOM * Used *[id number] 14:38 StarShooter SUPPORT, ARTERIAL ADULT [id number] *[id number] Used [id number] 14:38 Studiekring PACER PEN, SKIN DUAL W/ RULER * Used *[id number] BAND, RADIAL COMPRESSION TR [id number] 15:47 Maestrano MEDICAL 24CM Used SHORT 24 *[id number] SHEATH, FR6 RADIAL PRELUDE 14:38 BrightEdge FR 6 [id number] Used EASE 11CM [id number] 14:38 BrightEdge WIRE, EXCHANGE 260CM 3MMJ 260CM Used *[id number] 14:38 NAMIC MANIFOLD, 4 PORT * Used *[id number] 14:38 NYCOMED OMNIPAQUE, 350 MG, 150ML 150ML [id number] Used [id number] 14:38 VEE MEDICAL BLANKET,WARM AIR CCL * Used *[id number] CATHETER, FR5 OPTITORQUE [id number] 15:32 TERBvents MEDICAL FR 5 Used RADIAL TIG 4.0 *[id number] History: Current Medications Medication Dosage/Unit Route Frequency Last Date/Time Taken Coumadin Allopurinol COZAAR Statins (any) History: Allergies Allergy Reaction ampicillin Hives aspirin Hives Bees Shortness of Breath Cashew Anaphylaxis Cipro Hives codeine Hives Darvocet-N 100 Hives Erythromycin Anaphylaxis Flagyl Hives gentamicin Hives iodine Shortness of Breath Keflex Hives morphine Anaphylaxis Motrin Hives Nonsteroidal Anti-Inflammatory Hives Agts Penicillin Hives Percodan Hives Tetracycline Anaphylaxis KEFLIN Hives potassium iodide Shortness of Breath sodium iodide Shortness of Breath oxycodone Hives propoxyphene Hives acetaminophen Hives indomethacin Hives ibuprofen Hives naproxen Hives flurbiprofen Hives ketoprofen Hives cephalexin Hives doxycycline Anaphylaxis erythromycin base Anaphylaxis ciprofloxacin Hives metronidazole Hives povidone-iodine Shortness of Breath etodolac Hives oxaprozin Hives diclofenac Hives ketorolac Hives minocycline Anaphylaxis penicillin G Hives bee venom protein (honey bee) Shortness of Breath tigecycline Anaphylaxis cashew nut Anaphylaxis History: Risk Factors Family History of Hypertension Dyslipidemia Previous [place] Previous Heart Failure Premature CAD Yes Yes No No Yes Prior Valve Prior PCI Prior CABG Surgery Yes No No Cerebrovascular Peripheral Artery Chronic Lung On Dialysis Diabetes Diabetes Therapy Disease Disease Disease No Yes No No Yes Oral History: Arrhythmias Selection Items Atrial fibrillation Labs Hgb (g/dl) Hct (%) WBC (l/cumm) Platelets (thousands) 11.60-17.00 35.00-51.00 4.00-11.00 150.00-450.00 8.7 26 2.9 93 Glucose (mg/dl) BUN (mg/dl) Creatinine (mg/dl) BUN:Creatinine (1:x) 74.00-106.00 7.00-18.00 0.50-1.30 10.00-20.00 88 26 1.3 20 Na (meq/l) K (meq/l) 136.00-145.00 3.50-5.10 143 4 INR (PTT:PT) 0.90-1.10 1.3 Troponin I (ng/ml) CPK (u/l) 0.02-0.05 26.00-308.00 0.02 20 Medication Medication Total Dose (Bolus/Oral) Medication Total Dosage/Unit 1% XYLOCAINE 10 mL BENADRYL 50 mg NTG (IC) 200 mcg SOLU-CORTEF 100 mg VERSED 2 mg Medications (Bolus/Oral) Medication Time Given Dosage/Unit Administered By Reason BENADRYL 02/17/2017 3:12:49 PM 50 mg Josephine Lai 50 mg BENADRYL given in lab by Josephine Lai, RN via Peripheral IV. Ordered by Gui Buitrago. SOLU-CORTEF 02/17/2017 3:13:35 PM 100 mg Josephine Lai 100 mg SOLU-CORTEF given in lab by Josephine Lai, SAHIL via Peripheral IV. Ordered by Gui Buitrago. 1% XYLOCAINE 02/17/2017 3:28:42 PM 10 mL Gui Buitrago 10 mL 1% XYLOCAINE given in lab by Gui Buitrago in Right Radial via Subcutaneous. Ordered by Chelsea Buitrago. VERSED 02/17/2017 3:32:38 PM 2 mg Josephine Lai 2 mg VERSED given in lab by Josephine Lai, SAHIL via Peripheral IV. Ordered by Gui Buitrago. NTG (IC) 02/17/2017 3:33:15 PM 200 mcg Gui Buitrago 200 mcg NTG (IC) given in lab by Gui Buitrago in Right Radial via Intra-coronary. Ordered by Chelsea Buitrago. Medication (Drip) Medication Time Given Dosage/Unit Concentration/Unit Diluent (ml) Solution IV Solutions 02/17/2017 3:03:19 PM 0 mL (IV) 500 NaCl .9 IV Solutions given in lab by Josephine Lai, ASHIL in Right shoulder via Peripheral IV. Pump/Drip Flow = 20 ml/hr using NaCl .9. Ordered by Gui Buitrago. Initial Case Assessment Cardiovascular HR NIBP 55 174/100 Edema Present Skin color Skin None Normal Warm Dry Circulatory - Right Pulses Femoral Radial 3 3 Scale (0,1,2,3,4,d) Circulatory - Left Pulses Femoral Radial 3 Scale (0,1,2,3,4,d) Neurological State Oriented to time-place- Alert Moves all extremities person Respiration - General Respiration Rate SpO2 (%) (B/min) 17 100 Initial Case Assessment Cardiovascular HR NIBP 60 158/91 Edema Present Skin color Skin None Normal Warm Dry Circulatory - Right Pulses Femoral Radial 3 3 Scale (0,1,2,3,4,d) Circulatory - Left Pulses Femoral Radial 3 Scale (0,1,2,3,4,d) Neurological State Oriented to time-place- Alert Moves all extremities person Respiration - General Respiration Rate SpO2 (%) (B/min) 16 98 Chronological Log Time Study Chronological Log 15:03:00 Patient arrived via Bed. 15:03:01 Patient Name, D.O.B, / Armband Verified By R.N. 15:03:02 Consent signed by the physician and the patient and verified by the Child Care Attendant School staff. 15:03:03 Pre-op and post- op instructions given; patient acknowledges understanding of instructions. 15:03:08 Allens test performed on the right radial and ulnar artery. 15:03:10 Patient has been NPO for More than 6Hrs. 15:03:11 NO Skin Breakdown- 15:03:12 Patient Warmer Placed on the Table. 15:03:16 Олег Prominences Protected 15:03:18 A # ~SIZE~ IV was noted in the Subclav. Vein (Rt). Grade = ~GRADE~ PORT IV Solutions given in lab by Josephine Lai, SAHIL in Right shoulder via Peripheral IV. Pump/Drip Flow = 20 ml/hr using 15:03:19 NaCl .9. Ordered by Gui Buitrago. 15:03:21 History and physical on the chart or being dictated. Vitals capture started with the following parameters, Patient=Adult, Interval=5 min, Initial Pr ltqudu=100 mmHg, 15:11:31 Deflation Rate=5 mmHg, Cuff placed on Right Arm 15:12:49 50 mg BENADRYL given in lab by Josephine Lai, SAHIL via Peripheral IV. Ordered by Chichi Buitrago. 15:13:35 100 mg SOLU-CORTEF given in lab by Josephine Lai, SAHIL via Peripheral IV. Ordered by Gui Buitrago. Vitals capture started with the following parameters, Patient=Adult, Interval=5 min, Initial Pr uasuwt=061 mmHg, 15:16:27 Deflation Rate=5 mmHg, Cuff placed on Right Arm 15:17:59 HR=55 bpm, ZYVF=940/105 mmhg, EpB2=469 %, Resp=17 B/min, Pain=0, Sarina=10, Llanos=2 Assessment: Initial Case, HR=55 BPM, KUOR=182/100 mmhg, Edema=None, Color=Normal, Skin = Warm, Dry Right Pulses: Femoral=3, Radial=3 15:18:13 Left Pulses: Femoral=3 Neurological: State=Alert, Ox3, WILLARD Respiration: Resp=17 B/min, LmE5=978 % 15:19:18 Right groin and right wrist prepped with 2% chlorhexidine, and with a 3 min. waiting time. 15:22:05 XO=546 bpm, SQMR=476/98 mmhg, SpO2=97.0 %, Resp=14 B/min, Pain=0, Sarina=10, Llanos=2 15:24:14 Reference ECG taken 15::34 Pressure channel 1 zeroed. 15:27:53 HR=55 bpm, GUIQ=781/81 mmhg, NkV0=887.0 %, Resp=15 B/min, Pain=0, Sarina=10, Llanos=2 Time Out. Correct patient, correct procedure,correct physician, power injector not loaded with contrast with surgical 15:28:12 team present. Time Out Concurred by MD, individual staff in procedure 15::34 Case Start 15::42 10 mL 1% XYLOCAINE given in lab by Gui Buitrago in Right Radial via Subcutaneous. Ordered b y Gui Buitrago. 15:29:56 Access site was Radial Artery. A SHEATH, FR6 RADIAL PRELUDE EASE 11CM FR 6 was advanced into the Radial (right) using the Gary fied Seldinger 15:30:03 technique. 15:32:07 HR=58 bpm, JMFT=817/82 mmhg, SpO2=99.0 %, Resp=12 B/min, Pain=0, Sarina=10, Llanos=2 A CATHETER, FR5 OPTITORQUE RADIAL TIG 4.0 FR 5 was advanced over a wire. OMNIPAQUE, 350 MG, 150 ML 150ML 15:32:16 was used for injections. 15:32:38 2 mg VERSED given in lab by Josephine Lai, SAHIL via Peripheral IV. Ordered by Gui Buitrago. Recorded Pressure: Ao, HR=59, Condition=Condition 1 15:33:05 (Aorta) Ao 152/57/91 15:33:15 200 mcg NTG (IC) given in lab by Gui Buitrago in Right Radial via Intra-coronary. Ordered b y Gui Buitrago. 15:33:42 The LCA was injected and visualized at various angles. OMNIPAQUE, 350 MG, 150ML 150ML used . After removing the current catheter a JR 5.0 INFINITI CATHETER FR 5 was advanced over a WIRE, E XCHANGE 260CM 15:35:58 3MMJ 260CM. 15:37:43 HR=54 bpm, THEE=104/73 mmhg, SpO2=94.0 %, Resp=15 B/min, Pain=0, Sarina=10, Llanos=2 Recorded Pressure: LV, HR=71, Condition=Condition 1 15:40:49 (Left Ventricle) LV 147/19/31 15:42:09 HR=54 bpm, UJLS=676/72 mmhg, SpO2=97.0 %, Resp=15 B/min, Pain=0, Sarina=10, Llanos=2 After removing the current catheter a AL 1 INFINITI CATHETER FR 5 was advanced over a WIRE, EXC HANGE 260CM 15:42:41 3MMJ 260CM. 15:47:10 HR=54 bpm, OIFY=746/81 mmhg, SpO2=98.0 %, Resp=15 B/min, Pain=0, Sarina=10, Llanos=2 15:48:45 Catheter was removed 15:49:39 Case End 15:49:46 Catheter(s) removed without difficulty Radial Compression Device Used. 10 mLs of air placed in BAND, RADIAL COMPRESSION TR SHORT 24 24 CM. Affected 15:51:49 hand 100 % O2 saturation. 15:52:18 No case complications noted. 15:52:20 Cine recording checked. 15:52:27 Bedside Report will be given. 15:52:44 HR=60 bpm, VNJM=194/91 mmhg, SpO2=98 %, Resp=16 B/min, Pain=0, Sarina=10, Llanos=2 15:53:15 A Left Heart Cath was performed. Assessment: Initial Case, HR=60 BPM, OXWR=076/91 mmhg, Edema=None, Color=Normal, Skin = Warm, Dry Right Pulses: Femoral=3, Radial=3 15:53:24 Left Pulses: Femoral=3 Neurological: State=Alert, Ox3, WILLARD Respiration: Resp=16 B/min, SpO2=98 % 15:54:21 Vitals capture stopped. 15:58:03 Patient moved to stretcher End Study - Contrast Media Used In Study Contrast Total Opened (mL) Total Used (mL) Total Wasted (mL) Omnipaque 65 65 0 End Study - Maximum Contrast Load Max Contrast Load (mL) 382.7 End Study - Radiation Exposure Fluoro Time (minutes) 9.2 End Study - Patient Disposition Complications Transferred To No Telemetry Bed
[2017-02-17] MEDS ORDERED: MISC INFORMATION XX ONE (16:00)
[2017-02-17] MEDS ORDERED: IOHEXOL 350 MG/ML 100 ML BTL (for Cath Lab) OTHER ONE (16:23)
[2017-02-17] MEDS: ACETAMINOPHEN 325 MG TAB PO PRN (17:15)
[2017-02-17] MEDS: WARFARIN SOD 10 MG TAB PO SCH (17:15)
--- NOTE | 2017-02-17 18:12 | MA ---
cc: DAVE BAJWA M.D. DATE 02/17/2017 PROCEDURE Left heart catheterization, selective coronary angiography. PROCEDURE NOTE The patient was brought to the cardiac catheterization laboratory in a fasting state after having signed informed consent. The right radial region was prepped and draped as per policy and anesthetized with 1% lidocaine. Arterial access was obtained via the right radial artery and a 6-Malian sheath placed. Coronary arteriography was performed using a tiger catheter to visualize the left coronary system. We were unable to engage the right coronary with multiple catheters. The right coronary is well visualized on contrast injection of the left coronary system. The patient's aortic valve replacement was briefly crossed inadvertently while trying to engage the right coronary artery. No significant transvalvular aortic gradient is demonstrated. HEMODYNAMIC RESULTS Left ventricle 147 with an end-diastolic pressure of 15. Aorta 138/69 with a mean of 92. CORONARY ARTERIOGRAPHY The left main is normal. The left anterior descending is a large vessel giving rise to a medium-sized branching diagonal. No disease is seen in the LAD system. The left circumflex is a relatively small vessel giving rise to a small obtuse marginal. No disease is seen in the left circumflex system. The right coronary artery, as noted above, could not be engaged despite multiple attempts with different catheters. The right coronary is well-visualized as there are excellent zind-bs-zgmol collaterals. The mid to distal right coronary appears to be normal. There is a long region in the proximal right coronary which is stenosed probably up to 50-60%. At the ostium of the vessel there is an apparent total occlusion. There is no reflux of contrast into the aortic root. LEFT VENTRICULOGRAPHY Not done. CONCLUSION Totally occluded but very well collateralized right coronary artery, normal left coronaries. MD EVENS Bhat/KK /4:04 PM /6:04 PM MTDKarolina
[2017-02-17] MEDS: MONTELUKAST SODIUM 10 MG TAB PO SCH (20:54)
[2017-02-18] VITALS (27 sets, daily range): BP systolic 89–128; BP diastolic 47–69; PULSE 59–68; RESP 16–20; TEMP 97.7–98; O2SAT 96–100
[2017-02-18] MEDS: BACLOFEN 20 MG TAB PO PRN ×3 (01:52→20:03)
[2017-02-18] MEDS: ACETAMINOPHEN 325 MG TAB PO PRN ×3 (01:52→20:03)
[2017-02-18 06:29] LABS: AUTOMATED NEUTROPHIL # 2.7 TH/MM3 (1.8-7.7); BASOPHIL % 0.6 % (0.0-2.0); HEMATOCRIT 24.2 % (35.0-46.0); LYMPHOCYTE # 0.1 TH/MM3 (1.0-4.8); MEAN CELL VOLUME 93.7 FL (80.0-100.0); MEAN CORPUSCULAR HEMOGLOBIN 31.8 PG (27.0-34.0); MONO % 9.8 % (0.0-8.0); NEUT % 86.6 % (16.0-70.0); PLATELET COUNT 86 TH/MM3 (150-450); RED BLOOD COUNT 2.58 MIL/MM3 (4.00-5.30); RED CELL DISTRIBUTION WIDTH 16.4 % (11.6-17.2); WHITE BLOOD COUNT 3.2 TH/MM3 (4.0-11.0)
[2017-02-18 06:32] LABS: HEMO FLAGS AUTO DIFF
[2017-02-18] MEDS: ISOSORBIDE MONONITRATE 60 MG TAB PO SCH (06:36)
[2017-02-18 06:42] LABS: APTT (PATIENT) 28.9 SEC (24.3-30.1); INTERNATIONAL NORMALIZED RATIO 1.2 RATIO; PROTHROMBIN TIME - PATIENT 13.4 SEC (9.8-11.6)
[2017-02-18 06:58] LABS: BICARBONATE 28.7 MEQ/L (21.0-32.0); MAGNESIUM 2.3 MG/DL (1.5-2.5); POTASSIUM 3.7 MEQ/L (3.5-5.1)
[2017-02-18] MEDS: SODIUM CHLOR 0.9% 1000 ML INJ 1,000 ML IV SCH (08:00)
[2017-02-18] MEDS: INSULIN ASPART SUPPLEMENTAL SCALE SQ SCH ×4 (08:00→21:00)
--- NOTE | 2017-02-18 08:00 | PD.CARD.PN ---
Subjective Subjective Remarks No CP, dyspnea, orthopnea, PND, dizziness, palpitations, groin pain. Objective Medications Item Value Date Time Isosorbide 60 mg 02/18/17 0700 Mononitrate DAILY@07/PO 02/18/17 0636 (Imdur) Warfarin Sodium 10 mg 02/17/17 1600 (Coumadin) DAILY@16/PO 02/17/17 1715 Furosemide 40 mg 02/13/17 1800 (Lasix Inj) BID@09,18/IV PUSH 02/17/17 171 Losartan Potassium 25 mg 02/13/17 0900 (Cozaar) DAILY/PO 02/17/17 1008 Metoprolol 12.5 mg 02/13/17 0900 Tartrate BID/PO 02/17/172052 (Lopressor) Potassium Chloride 20 meq 02/13/17 0900 (KCl) DAILY/PO 02/17/17 1010 Vital Signs / I&O Vital Signs Date Time Temp Pulse Resp B/P (MAP) Pulse Ox O2 Delivery O2 Flow Rate FiO2 02/18/17 07:13 60 02/18/17 06:37 119/64 (82) 02/18/17 06:00 60 02/18/17 05:00 60 02/18/17 04:00 97.7 60 16 94/55 (68) 96 02/18/17 04:00 60 02/18/17 03:00 60 02/18/17 02:00 60 02/18/17 01:00 60 02/18/17 00:00 60 02/17/17 23:00 98.0 60 16 101/62 (75) 97 02/17/17 23:00 60 02/17/17 22:00 60 02/17/17 21:00 60 02/17/17 20:00 60 02/17/17 19:30 97.6 60 16 111/60 (77) 94 02/17/17 19:00 60 02/17/17 18:00 60 02/17/17 17:00 60 02/17/17 16:15 98.1 60 18 120/73 (89) 97 02/17/17 16:14 59 02/17/17 14:03 59 02/17/17 13:00 62 02/17/17 12:00 63 02/17/17 11:50 97.6 60 18 126/67 (86) 100 02/17/17 11:34 60 02/17/17 10:00 60 02/17/17 09:00 59 02/17/17 08:17 97.5 60 18 136/72 (93) 96 Manual Cuff/Palpation 02/17/17 08:00 59 I/O 02/17/17 02/17/17 02/17/17 02/18/17 02/18/17 02/18/17 07:00 15:00 23:00 07:00 15:00 23:00 Intake Total 360 ml 450 ml 780 ml Output Total 560 ml 1350 ml 1000 ml Balance -200 ml -900 ml -220 ml Intake Oral 360 ml 450 ml 480 ml IV Total 300 ml Output Urine Total 560 ml 1350 ml 1000 ml # Voids 1 # Bowel Movements 0 Physical Exam GENERAL: Well developed, well nourished. No acute distress. HEENT: Jugular venous pressure normal. CHEST: Lungs clear to auscultation. CARDIAC: Irregular rate and rhythm without S3, S4, II/ HUONG base. Bremer AVR sounds. ABDOMEN: Soft, nontender, no hepatosplenomegaly. Bowel sounds present. EXTREMITIES: No clubbing, cyanosis. Trace pedal edema. Laboratory Laboratory Tests Test 02/17/17 13:00 02/18/17 04:15 White Blood Count 3.2 TH/MM3 Red Blood Count 2.58 MIL/MM3 Hemoglobin 8.2 GM/DL Hematocrit 24.2 % Mean Corpuscular Volume 93.7 FL Mean Corpuscular Hemoglobin 31.8 PG Mean Corpuscular Hemoglobin Concent 34.0 % Red Cell Distribution Width 16.4 % Platelet Count 86 TH/MM3 Mean Platelet Volume 8.5 FL Neutrophils (%) (Auto) 86.6 % Lymphocytes (%) (Auto) 2.0 % Monocytes (%) (Auto) 9.8 % Eosinophils (%) (Auto) 1.0 % Basophils (%) (Auto) 0.6 % Neutrophils # (Auto) 2.7 TH/MM3 Lymphocytes # (Auto) 0.1 TH/MM3 Monocytes # (Auto) 0.3 TH/MM3 Eosinophils # (Auto) 0.0 TH/MM3 Basophils # (Auto) 0.0 TH/MM3 CBC Comment AUTO DIFF Prothrombin Time 13.4 SEC Prothromb Time International Ratio 1.2 RATIO Activated Partial Thromboplast Time 28.9 SEC Blood Urea Nitrogen 24 MG/DL Creatinine 1.26 MG/DL Random Glucose 117 MG/DL Calcium Level 8.4 MG/DL Magnesium Level 2.3 MG/DL Sodium Level 142 MEQ/L Potassium Level 3.7 MEQ/L Chloride Level 107 MEQ/L Carbon Dioxide Level 28.7 MEQ/L Anion Gap 6 MEQ/L Estimat Glomerular Filtration Rate 42 ML/MIN Assessment and Plan Problem List: (1) Unstable angina ICD Codes: I20.0 - Unstable angina Status: Acute Plan: No further chest discomfort. Cath shows totally occluded, but very well collateralized RCA, no other disease noted. REC medical therapy of her CAD; continue Imdur, metoprolol, no aspirin with her severe allergy to aspirin discharge only when INR back up to ~2.5 (2) Congestive heart failure (CHF) ICD Codes: I50.9 - Heart failure, unspecified Status: Acute Plan: Symptomatically much improved. Good diuresis since admission. Precipitating factor for CHF not entirely clear. Recent echo showed normal LV function, normal AVR function. Her AVR was also inadvertently crossed with one of the catheters yesterday and no significant gradient noted. Her CAD appears to be chronic (occluded collateralized RCA). The pedal edema likely in part due to mild RV dysfunction, etiology also unclear. Recent V/Q scan low probability. REC consider change to oral diuretic; continue beta keira, ARB (3) Chronic atrial fibrillation ICD Codes: I48.2 - Chronic atrial fibrillation Status: Chronic Plan: Stable. No HR control issues. Warfarin resumed. Await Dr. Sherman's recommendations. Consider resuming heparin drip until INR therapeutic. (4) History of aortic valve replacement ICD Codes: Z95.2 - Presence of prosthetic heart valve Status: Chronic Plan: Normal AVR function by recent echo in the office. Warfarin resumed. Await Dr. Sherman's recommendations. Consider resuming heparin drip until INR therapeutic. Code Status full code Discussed Condition With patient Problem Qualifiers (1) Congestive heart failure (CHF): Gui Buitrago MD Feb 18, 2017 08:00
[2017-02-18] MEDS: SODIUM CHLORIDE 0.9% FLUSH 10 ML FLUSH IVF PRN (08:11)
[2017-02-18] MEDS: ALLOPURINOL 300 MG TAB PO SCH (08:11)
[2017-02-18] MEDS: LOSARTAN 25 MG TAB PO SCH (08:11)
[2017-02-18] MEDS: FUROSEMIDE 40 MG/4 ML VIAL IV PUSH SCH ×2 (08:11→17:52)
[2017-02-18] MEDS: MAGNESIUM OXIDE 400 MG TAB PO SCH ×2 (08:12→19:58)
[2017-02-18] MEDS: PANTOPRAZOLE SOD 20 MG DELAYED RELEASE TAB PO SCH ×2 (08:12→19:58)
[2017-02-18] MEDS: ONDANSETRON ODT 4 MG TAB PO SCH ×2 (08:12→19:58)
[2017-02-18] MEDS: CHOLECALCIFEROL (VIT D3) 1000 UNIT TAB PO SCH (08:12)
[2017-02-18] MEDS: POTASSIUM CHLORIDE 20 MEQ CONTROLLED RELEASE TAB PO SCH (08:12)
[2017-02-18] MEDS: METOPROLOL TARTRATE 25 MG TAB PO SCH ×2 (08:12→19:57)
--- NOTE | 2017-02-18 08:32 | MB ---
cc: EDDIE ASIF M.D. DATE OF CONSULTATION 02/18/[address] Rosado REASON FOR ONCOLOGY CONSULTATION To render opinion regarding patient with lymphoma, now with pancytopenia. HISTORY OF PRESENT ILLNESS The patient is a very pleasant 66-year-old female with non-Hodgkin's B-cell lymphoma currently on chemotherapy who presented to the hospital with a complaint of increased chest pain and shortness of breath that has been going on for one to two weeks. She has been noticing increasing lower extremity edema for several weeks despite increased diuretic use. She also had worsening orthopnea. She has increased dyspnea on exertion to this point that she had difficulty walking. She came into the hospital for further cardiac workup. She had a history of aortic valve replacement and recent echo reportedly was unremarkable. She was started on heparin after she was taken off the Coumadin. Over the last few days, her count has been trending down. Hematology consulted for further evaluation. The patient just had a cardiac cath yesterday and reportedly found to have coronary disease. She is feeling better since starting on Imdur. She no longer has chest pain. Her shortness of breath has improved. Her edema has significantly improved. She stated she was able to lay flat last night. She has no fever or chills. Denies chest pain. He any nausea, vomiting, diarrhea, or abdominal pain. PAST MEDICAL HISTORY 1. Non-Hodgkin B-cell lymphoma on Rituxan and Bendamustine. 2. Chronic atrial fibrillation 3. Congestive heart failure 4. Diabetes mellitus 5. Hypertension 6. Asthma 7. Gastroesophageal reflux disease 8. Gout 9. Hyperlipidemia 10. Transient ischemic attack 11. Recent pneumonia 12. Multiple sclerosis PAST SURGICAL HISTORY 1. St. Bao aortic valve replacement 2. Pacemaker placement 3. Port placement FAMILY HISTORY Noncontributory SOCIAL HISTORY No tobacco or alcohol use. ALLERGIES Documented on her chart. MEDICATIONS 1. Imdur 2. Coumadin 3. Heparin 4. Singulair 5. Zanaflex 6. Lasix 7. Allopurinol 8. Magnesium oxide 9. Vitamin D3 10. Protonix 11. Cozaar 12. Lopressor 13. Potassium 14. Zofran REVIEW OF SYSTEMS CONSTITUTIONAL: As above. EYES: Negative. ENT: Negative. CARDIOVASCULAR: As above. RESPIRATORY: As above. GI: Negative. : No dysuria or hematuria. MUSCULOSKELETAL: No significant pain. HEMATOLOGY: As above. ENDOCRINE: Negative. DERMATOLOGY: Negative. PSYCHIATRIC: Negative. NEUROLOGIC: Negative. PHYSICAL EXAMINATION Temperature 97.7, blood pressure 119/64. GENERAL: She is alert and oriented x3 in no acute distress. HEENT: Atraumatic, normocephalic. Pupils equal, round and reactive to light. Extraocular muscles intact. No sclerae icterus. Oropharynx, dry mucosa. No lesion or thrush or mucositis. NECK: No thyromegaly. No palpable masses. LYMPHATICS: No palpable cervical, clavicular, axillary or inguinal lymph nodes. CARDIOVASCULAR: Regular S1-S2. No murmurs. LUNGS: Clear to auscultation anteriorly. ABDOMEN: Soft, nontender. I could not palpate the liver or spleen. EXTREMITIES: She had 2+ edema up to the thighs, but is improved. SKIN: No rash or petechiae. NEUROLOGIC: Nonfocal. LABORATORY DATA Reviewed ASSESSMENT 1. Pancytopenia due to recent chemotherapy. She just had another cycle of Rituxan and Bendamustine on February 10 and . Her blood count is expected to trend down. Her platelets are down to 86,000 today. She has no evidence of bleeding. I doubt that she has HIT. Expect her blood count to continue to trend down for a few more days before it will start trending back up. She is not neutropenic at this time. Continue to monitor CBC for now. 2. Non-Hodgkin B-cell lymphoma. She has grade one follicular lymphoma and presented with a large mass in the mesentery, clinically stage two. She just completed second cycle of Rituxan and Bendamustine. Abdominal discomfort has resolved. Hopefully she is responding to treatment. I could not palpate any adenopathy or splenomegaly. 3. Coronary disease. She had cardiac catheterization yesterday which showed a totally occluded well collateralized right coronary disease with normal left coronary artery. Cardiology is following. 4. Chronic kidney disease, stable. RECOMMENDATIONS 1. Continue monitor CBC. 2. If she is discharged from the hospital, she can follow up at the hematology clinic to monitor CBC. Thank you, Dr. Rosado, for asking us to see this patient. MD TIMBO Rosenberg/EARL /7:57 AM /8:19 AM KALEN
[2017-02-18 09:19] LABS: PLATELET ESTIMATE SMEAR LOW (NORMAL); PLATELET MORPHOLOGY NORMAL (NORMAL); SCAN/DIFF AUTO DIFF CONFIRMED
--- NOTE | 2017-02-18 09:45 | HHI.PR ---
Subjective Remarks Follow-up CAD and aVR. Tolerated cardiac catheterization yesterday. Complaining of bruising right arm. Denies chest pain and shortness of breath. INR still subtherapeutic started on Coumadin. She does not want to start on heparin drip today and will wait for follow-up INR results tomorrow fully aware risk of stroke from AVR. Discussed with RN Objective Vitals Vital Signs Date Time Temp Pulse Resp B/P (MAP) Pulse Ox O2 Delivery O2 Flow Rate FiO2 02/18/17 09:00 60 02/18/17 08:00 68 02/18/17 07:30 97.9 60 17 128/69 (88) 97 02/18/17 07:13 60 02/18/17 06:37 119/64 (82) 02/18/17 06:00 60 02/18/17 05:00 60 02/18/17 04:00 97.7 60 16 94/55 (68) 96 02/18/17 04:00 60 02/18/17 03:00 60 02/18/17 02:00 60 02/18/17 01:00 60 02/18/17 00:00 60 02/17/17 23:00 98.0 60 16 101/62 (75) 97 02/17/17 23:00 60 02/17/17 22:00 60 02/17/17 21:00 60 02/17/17 20:00 60 02/17/17 19:30 97.6 60 16 111/60 (77) 94 02/17/17 19:00 60 02/17/17 18:00 60 02/17/17 17:00 60 02/17/17 16:15 98.1 60 18 120/73 (89) 97 02/17/17 16:14 59 02/17/17 14:03 59 02/17/17 13:00 62 02/17/17 12:00 63 02/17/17 11:50 97.6 60 18 126/67 (86) 100 02/17/17 11:34 60 02/17/17 10:00 60 I/O 02/17/17 02/17/17 02/17/17 02/18/17 02/18/17 02/18/17 07:00 15:00 23:00 07:00 15:00 23:00 Intake Total 360 ml 450 ml 780 ml Output Total 560 ml 1350 ml 1000 ml Balance -200 ml -900 ml -220 ml Intake Oral 360 ml 450 ml 480 ml IV Total 300 ml Output Urine Total 560 ml 1350 ml 1000 ml # Voids 1 # Bowel Movements 0 Result Diagram: 02/18/1741402/18/17414 Imaging Last Impressions Chest X-Ray 02/12/172033 Signed Impressions: Service Date/Time: Sunday, February 12, 2017 20:51 - CONCLUSION: 1. Small left pleural effusion and tiny right pleural effusion. 2. Cardiomegaly. Jaycob Camara MD Objective Remarks Well-developed, well-nourished in no distress Pupils equally reactive to light Neck supple no JVD Equal in expansion clear to auscultation Irregularly irregular with systolic murmur and metallic sound Abdomen soft nontender Extremities with improving pitting edema no cyanosis Alert and oriented nonfocal No signs of bleeding Procedures Cardiac catheterization A/P Problem List: (1) Chest pain ICD Code: R07.9 - Chest pain, unspecified Status: Acute Assessment and Plan Chest pain status post cardiac catheterization with included RCA with good collateralization Acute CHF with preserved systolic function with no clear precipitant - Diuresing well continue Lasix 40 mg IV BID, beta keira and arb. Patient allergic to aspirin - follow Is and Os, daily weights. - telemetry. Non-Hodgkin's lymphoma On chemotherapy. - Continue management with her oncologist Chronic kidney disease stage III - monitor BMP while being diuresed. Labs stable - Avoid nephrotoxic agents. A. fib with CVR -Restarted warfarin and monitor INR. AVR -Anticoagulation restarted discharge when INR therapeutic per cardiology. Restart heparin drip when patient agrees Diabetes Glucose well controlled. - sliding scale insulin coverage. Pancytopenia with recent chemotherapy. Check hit. Continue to monitor status post oncology evaluation PPx: Coumadin Discharge Planning Not ready for discharge Problem Qualifiers (1) Chest pain: Qualified Codes: R07.9 - Chest pain, unspecified Walker Rosado MD Feb 18, 2017 09:45
[2017-02-18] MEDS ORDERED: ISOS60TA PO (09:47)
--- NOTE | 2017-02-18 10:39 | PQ ---
Physician Query Response Document PATIENT: PAULINE JORDAN : 1950 ADMIT DATE: 02/14/2017 9:45 AM DISCH DATE: RESPONDING PROVIDER #: Sofi QUERY TEXT: Conflicting Documentation Clarification There is documentation of multiple diagnoses for the same clinical presentation in the record. Pleas e clarify the TYPE OF CHF 1) SYSTOLIC CHF 2) DIASTOLIC CHF 3) COMBINED SYSTOLIC AND DIASTOLIC CHF 4) OTHER, PLEASE EXPLAIN PLEASE CALL [facility] @ [facility] [id number] FOR ASSISTANCE The patient's Clinical Indicators include: PER PROGRESS NOTE 02/14/17: Chest pain/ Acute Systolic CHF PER PROGRESS NOTE 02/16/17: Acute CHF with preserved systolic function PER CARDIOLOGY CONSULT: recent echo showing normal left ventricular and normal aortic valve replacement function. She did have moderate right ventricular enlargement with mildly reduced right ventricular systolic function on that echo, of unclear etiology. CUI=[id number] Query created by: Helga Dougherty on 02/17/2017 11:16 AM RESPONSE TEXT: CHF with RV dysfunction. Preserved systolic function Electronically signed by: Walker Rosado MD 02/18/2017 10:35 AM
[2017-02-18 17:01] LABS: HEPARIN AB OD 0.077 O.D. (0.000-0.300); HEPARIN INDUCED PLATELET AB NEGATIVE (NEGATIVE)
[2017-02-18] MEDS: WARFARIN SOD 10 MG TAB PO SCH (17:53)
[2017-02-18] MEDS: MONTELUKAST SODIUM 10 MG TAB PO SCH (19:57)
[2017-02-19] VITALS (29 sets, daily range): BP systolic 101–122; BP diastolic 60–71; PULSE 60–64; RESP 15–18; TEMP 97.5–98; O2SAT 96–100
[2017-02-19 05:16] LABS: INTERNATIONAL NORMALIZED RATIO 1.6 RATIO; PROTHROMBIN TIME - PATIENT 17.5 SEC (9.8-11.6)
[2017-02-19] MEDS: ISOSORBIDE MONONITRATE 60 MG TAB PO SCH (06:15)
[2017-02-19] MEDS: INSULIN ASPART SUPPLEMENTAL SCALE SQ SCH ×4 (08:00→21:00)
--- NOTE | 2017-02-19 08:02 | PD.CARD.PN ---
Subjective Subjective Remarks Feels "good". No CP, dyspnea, orthopnea, dizziness. Slept very well. Objective Medications Item Value Date Time Isosorbide 60 mg 02/18/17 0700 Mononitrate DAILY@07/PO 02/19/17 0615 (Imdur) Warfarin Sodium 10 mg 02/17/17 1600 (Coumadin) DAILY@16/PO 02/18/17 1753 Furosemide 40 mg 02/13/17 1800 (Lasix Inj) BID@,18/IV PUSH Losartan Potassium 25 mg 02/13/17 0900 (Cozaar) DAILY/PO 02/18/17 0811 Metoprolol 12.5 mg 02/13/17 0900 Tartrate BID/PO 02/18/17 195 (Lopressor) Vital Signs / I&O Vital Signs Date Time Temp Pulse Resp B/P (MAP) Pulse Ox O2 Delivery O2 Flow Rate FiO2 02/19/17 07:15 98.0 60 15 122/71 (88) 98 02/19/17 06:03 60 02/19/17 05:37 60 02/19/17 04:09 60 02/19/17 03:07 60 02/19/17 03:00 97.5 62 16 110/60 (77) 100 02/19/17 02:20 60 02/19/17 01:40 60 02/19/17 00:00 60 02/18/17 23:22 59 20 99/47 (64) 98 02/18/17 23:06 60 02/18/17 22:09 59 02/18/17 21:37 60 02/18/17 20:34 60 02/18/17 19:00 59 02/18/17 19:00 97.9 59 20 112/55 (74) 99 02/18/17 18:00 60 02/18/17 17:00 67 02/18/17 16:00 61 02/18/17 15:00 97.8 60 20 94/48 (63) 98 02/18/17 15:00 60 02/18/17 14:00 60 02/18/17 13:00 60 02/18/17 12:00 98.0 59 16 89/48 (62) 100 02/18/17 12:00 59 02/18/17 11:00 60 02/18/17 10:00 60 02/18/17 09:00 60 I/O 02/18/17 02/18/17 02/18/17 02/19/17 02/19/17 02/19/17 07:00 15:00 23:00 07:00 15:00 23:00 Intake Total 780 ml 800 ml 240 ml Output Total 1000 ml 1200 ml 500 ml Balance -220 ml -400 ml -260 ml Intake Oral 480 ml 800 ml 240 ml IV Total 300 ml Output Urine Total 1000 ml 1200 ml 500 ml # Voids 1 # Bowel Movements 0 2 0 Physical Exam GENERAL: Well developed, well nourished. No acute distress. HEENT: Jugular venous pressure normal. CHEST: Lungs clear to auscultation. CARDIAC: Irregular rate and rhythm without S3, S4, II/ HUONG base. [place] AVR sounds. ABDOMEN: Soft, nontender, no hepatosplenomegaly. Bowel sounds present. EXTREMITIES: No clubbing, cyanosis. Trace pedal edema. Laboratory Laboratory Tests Test 02/19/17 04:58 Prothrombin Time 17.5 SEC Prothromb Time International Ratio 1.6 RATIO Assessment and Plan Problem List: (1) Unstable angina ICD Codes: I20.0 - Unstable angina Status: Acute Plan: No further chest discomforts. Cath shows totally occluded, but very well collateralized RCA, no other disease noted. REC medical therapy of her CAD; continue Imdur, metoprolol, no aspirin with her severe allergy to aspirin discharge only when INR back up to ~2.5 (2) Congestive heart failure (CHF) ICD Codes: I50.9 - Heart failure, unspecified Status: Acute Plan: Stable. CHF resolved. Good diuresis since admission. Precipitating factor for CHF not entirely clear. Recent echo showed normal LV function, normal AVR function. Her AVR was also inadvertently crossed with one of the catheters during cath and no significant gradient noted. Her CAD appears to be chronic (occluded collateralized RCA). The pedal edema likely in part due to mild RV dysfunction, etiology also unclear. Recent V/Q scan low probability. REC change to oral Lasix; continue beta keira, ARB (3) Chronic atrial fibrillation ICD Codes: I48.2 - Chronic atrial fibrillation Status: Chronic Plan: Stable. No HR control issues. Warfarin resumed. INR 1.6. Discharge only when INR back up to ~2.5. (4) History of aortic valve replacement ICD Codes: Z95.2 - Presence of prosthetic heart valve Status: Chronic Plan: Normal AVR function by recent echo in the office. Warfarin resumed. Code Status full code Discussed Condition With patient Problem Qualifiers (1) Congestive heart failure (CHF): Gui Buitrago MD Feb 19, 2017 08:02
[2017-02-19] MEDS: CHOLECALCIFEROL (VIT D3) 1000 UNIT TAB PO SCH (08:55)
[2017-02-19] MEDS: POTASSIUM CHLORIDE 20 MEQ CONTROLLED RELEASE TAB PO SCH (08:55)
[2017-02-19] MEDS: PANTOPRAZOLE SOD 20 MG DELAYED RELEASE TAB PO SCH ×2 (08:56→20:10)
[2017-02-19] MEDS: METOPROLOL TARTRATE 25 MG TAB PO SCH ×2 (08:56→20:10)
[2017-02-19] MEDS: LOSARTAN 25 MG TAB PO SCH (08:56)
[2017-02-19] MEDS: MAGNESIUM OXIDE 400 MG TAB PO SCH ×2 (08:57→20:10)
[2017-02-19] MEDS: ALLOPURINOL 300 MG TAB PO SCH (08:57)
[2017-02-19] MEDS: ONDANSETRON ODT 4 MG TAB PO SCH ×2 (08:57→20:10)
[2017-02-19] MEDS: BACLOFEN 20 MG TAB PO PRN ×2 (09:04→20:10)
[2017-02-19] MEDS: FUROSEMIDE 40 MG TAB PO SCH (09:05)
[2017-02-19] MEDS: ACETAMINOPHEN 325 MG TAB PO PRN ×2 (09:06→20:10)
--- NOTE | 2017-02-19 11:40 | HHI.PR ---
Subjective Remarks Follow-up AVR and pancytopenia. Patient doing okay still with subtherapeutic INR agrees with heparin drip if platelet counts stable. Discussed with hematology, okay to start heparin drip if platelet counts over 70,000. Objective Vitals Vital Signs Date Time Temp Pulse Resp B/P (MAP) Pulse Ox O2 Delivery O2 Flow Rate FiO2 02/19/17 11:13 60 02/19/17 11:12 97.6 60 16 112/60 (77) 98 02/19/17 11:01 60 02/19/17 10:09 64 02/19/17 09:17 60 02/19/17 08:15 60 02/19/17 07:15 98.0 60 15 122/71 (88) 98 02/19/17 07:01 60 02/19/17 06:03 60 02/19/17 05:37 60 02/19/17 04:09 60 02/19/17 03:07 60 02/19/17 03:00 97.5 62 16 110/60 (77) 100 02/19/17 02:20 60 02/19/17 01:40 60 02/19/17 00:00 60 02/18/17 23:22 59 20 99/47 (64) 98 02/18/17 23:06 60 02/18/17 22:09 59 02/18/17 21:37 60 02/18/17 20:34 60 02/18/17 19:00 59 02/18/17 19:00 97.9 59 20 112/55 (74) 99 02/18/17 18:00 60 02/18/17 17:00 67 02/18/17 16:00 61 02/18/17 15:00 97.8 60 20 94/48 (63) 98 02/18/17 15:00 60 02/18/17 14:00 60 02/18/17 13:00 60 02/18/17 12:00 98.0 59 16 89/48 (62) 100 02/18/17 12:00 59 I/O 02/18/17 02/18/17 02/18/17 02/19/17 02/19/17 02/19/17 07:00 15:00 23:00 07:00 15:00 23:00 Intake Total 780 ml 800 ml 240 ml Output Total 1000 ml 1200 ml 500 ml Balance -220 ml -400 ml -260 ml Intake Oral 480 ml 800 ml 240 ml IV Total 300 ml Output Urine Total 1000 ml 1200 ml 500 ml # Voids 1 # Bowel Movements 0 2 0 Result Diagram: 02/18/1741402/18/17414 Imaging Last Impressions Chest X-Ray 02/12/172033 Signed Impressions: Service Date/Time: Sunday, February 12, 2017 20:51 - CONCLUSION: 1. Small left pleural effusion and tiny right pleural effusion. 2. Cardiomegaly. Jaycob Camara MD Objective Remarks Well-developed, well-nourished in no distress Pupils equally reactive to light Neck supple no JVD Equal in expansion clear to auscultation Irregularly irregular with systolic murmur and metallic sound Abdomen soft nontender Extremities with improving pitting edema no cyanosis Alert and oriented nonfocal No signs of bleeding Procedures Cardiac catheterization A/P Problem List: (1) Chest pain ICD Code: R07.9 - Chest pain, unspecified Status: Acute Assessment and Plan Chest pain status post cardiac catheterization with included RCA with good collateralization Acute CHF with preserved systolic function with no clear precipitant - Diuresing well continue Lasix 40 mg IV BID, beta keira and arb. Patient allergic to aspirin - follow Is and Os, daily weights. - telemetry. Non-Hodgkin's lymphoma On chemotherapy. - Continue management with her oncologist Chronic kidney disease stage III - monitor BMP while being diuresed. Labs stable - Avoid nephrotoxic agents. A. fib with CVR -Restarted warfarin and monitor INR. AVR -Anticoagulation restarted , discharge when INR therapeutic per cardiology. Restart heparin drip when patient agrees as long as platelet counts over 70,000 per hematology recommendations Diabetes Glucose well controlled. - sliding scale insulin coverage. Pancytopenia with recent chemotherapy. Negative hit. Continue to monitor status post oncology evaluation PPx: Coumadin Discharge Planning Not ready for discharge secondary to subtherapeutic INR needing heparin drip Problem Qualifiers (1) Chest pain: Qualified Codes: R07.9 - Chest pain, unspecified Walker Rosado MD Feb 19, 2017 11:40
[2017-02-19 12:58] LABS: AUTOMATED NEUTROPHIL # 3.3 TH/MM3 (1.8-7.7); BASOPHIL % 1.1 % (0.0-2.0); EOSINOPHIL # 0.1 TH/MM3 (0-0.4); LYMPH % 1.4 % (9.0-44.0); LYMPHOCYTE # 0.1 TH/MM3 (1.0-4.8); MEAN CELL VOLUME 93.3 FL (80.0-100.0); MEAN CORPUSCULAR HEMOGLOBIN 31.5 PG (27.0-34.0); MEAN CORPUSCULAR HGB CONC 33.7 % (32.0-36.0); MONO % 11.8 % (0.0-8.0); NEUT % 82.7 % (16.0-70.0); PLATELET COUNT 98 TH/MM3 (150-450); RED BLOOD COUNT 2.79 MIL/MM3 (4.00-5.30); RED CELL DISTRIBUTION WIDTH 16.8 % (11.6-17.2)
[2017-02-19 13:01] LABS: HEMO FLAGS AUTO DIFF
[2017-02-19 13:06] LABS: APTT (PATIENT) 30.7 SEC (24.3-30.1)
[2017-02-19 13:08] LABS: INTERNATIONAL NORMALIZED RATIO 1.6 RATIO; PROTHROMBIN TIME - PATIENT 18.2 SEC (9.8-11.6)
[2017-02-19 13:18] LABS: MAGNESIUM 2.3 MG/DL (1.5-2.5); POTASSIUM 4.2 MEQ/L (3.5-5.1)
[2017-02-19 13:26] LABS: PLATELET ESTIMATE SMEAR LOW (NORMAL); PLATELET MORPHOLOGY NORMAL (NORMAL); SCAN/DIFF AUTO DIFF CONFIRMED
--- NOTE | 2017-02-19 13:32 | PD.ONC.PN ---
Subjective Subjective Remarks Afebrile Patient reports she's had some very minimal left-sided pain Otherwise no acute complaints Objective Data Date Time Temp Pulse Resp B/P (MAP) Pulse Ox O2 Delivery O2 Flow Rate FiO2 02/19/17 12:24 60 02/19/17 11:13 60 02/19/17 11:12 97.6 60 16 112/60 (77) 98 02/19/17 11:01 60 02/19/17 10:09 64 02/19/17 09:17 60 02/19/17 08:15 60 02/19/17 07:15 98.0 60 15 122/71 (88) 98 02/19/17 07:01 60 02/19/17 06:03 60 02/19/17 05:37 60 02/19/17 04:09 60 02/19/17 03:07 60 02/19/17 03:00 97.5 62 16 110/60 (77) 100 02/19/17 02:20 60 02/19/17 01:40 60 02/19/17 00:00 60 02/18/17 23:22 59 20 99/47 (64) 98 02/18/17 23:06 60 02/18/17 22:09 59 02/18/17 21:37 60 02/18/17 20:34 60 02/18/17 19:00 59 02/18/17 19:00 97.9 59 20 112/55 (74) 99 02/18/17 18:00 60 02/18/17 17:00 67 02/18/17 16:00 61 02/18/17 15:00 97.8 60 20 94/48 (63) 98 02/18/17 15:00 60 02/18/17 14:00 60 02/19/17 02/19/17 02/19/17 07:00 15:00 23:00 Intake Total 240 ml Output Total 500 ml Balance -260 ml Result Diagram: 02/19/17 1243 02/19/17 1243 Laboratory Results Laboratory Tests Test 02/19/17 04:58 02/19/17 12:43 Prothrombin Time 17.5 SEC 18.2 SEC Prothromb Time International Ratio 1.6 RATIO 1.6 RATIO White Blood Count 4.0 TH/MM3 Red Blood Count 2.79 MIL/MM3 Hemoglobin 8.8 GM/DL Hematocrit 26.0 % Mean Corpuscular Volume 93.3 FL Mean Corpuscular Hemoglobin 31.5 PG Mean Corpuscular Hemoglobin Concent 33.7 % Red Cell Distribution Width 16.8 % Platelet Count 98 TH/MM3 Mean Platelet Volume 8.1 FL Neutrophils (%) (Auto) 82.7 % Lymphocytes (%) (Auto) 1.4 % Monocytes (%) (Auto) 11.8 % Eosinophils (%) (Auto) 3.0 % Basophils (%) (Auto) 1.1 % Neutrophils # (Auto) 3.3 TH/MM3 Lymphocytes # (Auto) 0.1 TH/MM3 Monocytes # (Auto) 0.5 TH/MM3 Eosinophils # (Auto) 0.1 TH/MM3 Basophils # (Auto) 0.0 TH/MM3 CBC Comment AUTO DIFF Activated Partial Thromboplast Time 30.7 SEC Blood Urea Nitrogen 20 MG/DL Creatinine 1.19 MG/DL Random Glucose 109 MG/DL Calcium Level 9.0 MG/DL Magnesium Level 2.3 MG/DL Sodium Level 140 MEQ/L Potassium Level 4.2 MEQ/L Chloride Level 106 MEQ/L Carbon Dioxide Level 28.0 MEQ/L Anion Gap 6 MEQ/L Estimat Glomerular Filtration Rate 45 ML/MIN Administered Medications Medications (Trade) Dose Ordered Sig/Love Route PRN Reason Start Time Stop Time Status Last Admin Dose Admin Sodium Chloride (NS Flush) 2 ml UNSCH PRN IVF FLUSH AFTER USING IV ACCESS 02/12/17 20:45 02/18/17 08:11 Losartan Potassium (Cozaar) 25 mg DAILY PO 02/13/17 09:00 02/19/17 08:56 Metoprolol Tartrate (Lopressor) 12.5 mg BID PO 02/13/17 09:00 02/19/17 08:56 Montelukast Sodium (Singulair) 10 mg HS PO 02/13/17 21:00 02/18/17 19:57 Potassium Chloride (KCl) 20 meq DAILY PO 02/13/17 09:00 02/19/17 08:55 Tizanidine HCl (Zanaflex) 4 mg HS PO 02/13/17 21:00 02/18/17 19:58 Pantoprazole Sodium (Protonix) 20 mg BID PO 02/13/17 09:15 02/19/17 08:56 Ondansetron HCl (Zofran Odt) 4 mg BID PO 02/13/17 09:00 02/19/17 08:57 Cholecalciferol (Vitamin D3) 2,000 units DAILY PO 02/13/17 10:45 02/19/17 08:55 Magnesium Oxide (Mag-Ox) 400 mg BID PO 02/13/17 11:00 02/19/17 08:57 Baclofen (Lioresal) 20 mg QID PRN PO muscle spasm 02/13/17 11:15 02/19/17 09:04 Allopurinol (Zyloprim) 300 mg DAILY PO 02/13/17 12:00 02/19/17 08:57 Insulin Aspart (NovoLOG SUPPLEMENTAL SCALE) 1 ACHS SLIDING SCALE SQ 02/15/17 12:00 02/17/17 20:53 Acetaminophen (Tylenol) 650 mg Q6HR PRN PO Pain 1 - 10 02/16/17 20:30 02/19/17 09:06 Isosorbide Mononitrate (Imdur) 60 mg DAILY@07 PO 02/18/17 07:00 02/19/17 06:15 Furosemide (Lasix) 40 mg DAILY PO 02/19/17 09:00 02/19/17 09:05 Objective Remarks GENERAL: Older female sitting up in chair at bedside in no acute distress SKIN: Warm and dry. HEAD: Normocephalic. EYES: No injection or drainage. NECK: Supple, trachea midline. CARDIOVASCULAR: Regular rate and rhythm without murmurs. RESPIRATORY: Clear posteriorly. Breathing unlabored. GASTROINTESTINAL: Abdomen soft, non-tender, nondistended. EXTREMITIES: No cyanosis. Generalized bilateral lower extremity edema NEUROLOGICAL: No obvious focal deficit. Awake, alert, and oriented x3. Assessment/Plan Problem List: (1) Lymphoma ICD Codes: C85.90 - Non-Hodgkin lymphoma, unspecified, unspecified site Status: Acute Plan: -- Pancytopenia due to recent chemotherapy -- Counts expected to continue to jeff Hx/Workup: Patient has a history of non-Hodgkin's B-cell lymphoma and currently just had the second cycle of chemotherapy with Rituxan and bendamustine on February 10 and . She has grade 1 follicular lymphoma and presented with a large mass in the mesentery, clinically stage II. It is expected that her blood counts will continue to jeff. She presented to the hospital with complaints of increased chest pain and shortness of breath that has been going on for 1-2 weeks accompanied with lower extremity edema despite diuretic use. She has a history of aortic valve replacement and is on Coumadin. (2) Chest pain ICD Codes: R07.9 - Chest pain, unspecified Status: Acute Plan: -- Cardiology following -- Cardiac catheterization shows a totally excluded right coronary artery with collaterals present -- On Imdur Assessment 66 y/o female with non-Hodgkin's lymphoma with recent chemotherapy presented with lower extremity edema, chest pain and shortness of breath Plan 1. Monitor CBC. 2. Blood counts stable. 3. Okay to resume warfarin today. 4. Monitor for bleeding. Attending Statement The exam, history, and the medical decision-making described in the above note were completed with the assistance of the mid-level provider. I reviewed and agree with the findings presented. I attest that I had a [id number] encounter with the patient on the same day, and personally performed and documented my assessment and findings in the medical record. No CP/SOB. Started back on coumadin. No bleeding noted. Continue to monitor CBC and sign of bleeding. Problem Qualifiers (1) Chest pain: Qualified Codes: R07.9 - Chest pain, unspecified Jaz Cody Feb 19, 2017 13:32 Lane Mayberry MD Feb 19, 2017 15:15
[2017-02-19] MEDS: WARFARIN SOD 6 MG TAB PO SCH (15:55)
[2017-02-19] MEDS: HEPARIN-D5W 25,000 U/250 ML 250 ML IV SCH (15:57)
[2017-02-19] MEDS: MONTELUKAST SODIUM 10 MG TAB PO SCH (20:10)
[2017-02-20] VITALS (25 sets, daily range): BP systolic 93–145; BP diastolic 49–70; PULSE 58–60; RESP 8–20; TEMP 96.6–98.2; O2SAT 97–100
[2017-02-20 02:46] LABS: APTT (PATIENT) 60.8 SEC (24.3-30.1)
[2017-02-20] MEDS: ACETAMINOPHEN 325 MG TAB PO PRN ×2 (05:20→18:26)
[2017-02-20] MEDS: BACLOFEN 20 MG TAB PO PRN ×2 (05:20→21:52)
[2017-02-20] MEDS: ISOSORBIDE MONONITRATE 60 MG TAB PO SCH (05:21)
[2017-02-20] MEDS: HEPARIN-D5W 25,000 U/250 ML 250 ML IV SCH ×2 (05:25→16:38)
[2017-02-20 06:18] LABS: BASOPHIL % 1.1 % (0.0-2.0); EOSINOPHIL # 0.1 TH/MM3 (0-0.4); EOSINOPHIL % 3.3 % (0.0-4.0); HEMATOCRIT 24.7 % (35.0-46.0); LYMPH % 2.6 % (9.0-44.0); LYMPHOCYTE # 0.1 TH/MM3 (1.0-4.8); MEAN CELL VOLUME 93.7 FL (80.0-100.0); MEAN CORPUSCULAR HEMOGLOBIN 31.5 PG (27.0-34.0); MEAN CORPUSCULAR HGB CONC 33.6 % (32.0-36.0); MONO % 14.2 % (0.0-8.0); NEUT % 78.8 % (16.0-70.0); PLATELET COUNT 75 TH/MM3 (150-450); RED BLOOD COUNT 2.64 MIL/MM3 (4.00-5.30); RED CELL DISTRIBUTION WIDTH 16.9 % (11.6-17.2); WHITE BLOOD COUNT 2.6 TH/MM3 (4.0-11.0)
[2017-02-20 06:19] LABS: HEMO FLAGS AUTO DIFF
[2017-02-20 07:05] LABS: POTASSIUM 3.6 MEQ/L (3.5-5.1)
[2017-02-20 07:50] LABS: PLATELET ESTIMATE SMEAR LOW (NORMAL); PLATELET MORPHOLOGY NORMAL (NORMAL); SCAN/DIFF AUTO DIFF CONFIRMED
--- NOTE | 2017-02-20 07:55 | PD.CARD.PN ---
Subjective Subjective Remarks No dyspnea, dizziness, CP, palpitations. Objective Medications Item Value Date Time Warfarin Sodium 6 mg 02/19/17 1600 (Coumadin) DAILY@16/PO 02/19/17 1555 Heparin Sodium/ 250 ml @ 12 mls/hr 02/19/17 1200 Dextrose TITRATE/IV 02/20/17 0525 Furosemide 40 mg 02/19/17 0900 (Lasix) DAILY/PO 02/19/17 0905 Isosorbide 60 mg 02/18/17 0700 Mononitrate DAILY@07/PO 02/20/17 0521 (Imdur) Losartan Potassium 25 mg 02/13/17 0900 (Cozaar) DAILY/PO 02/19/17 0856 Metoprolol 12.5 mg 02/13/17 0900 Tartrate BID/PO 02/19/172009 (Lopressor) Vital Signs / I&O Vital Signs Date Time Temp Pulse Resp B/P (MAP) Pulse Ox O2 Delivery O2 Flow Rate FiO2 02/20/17 07:01 58 02/20/17 06:19 60 02/20/17 05:00 60 02/20/17 04:04 60 02/20/17 03:19 60 02/20/17 03:00 98.0 60 18 93/49 (64) 97 02/20/17 02:42 60 02/20/17 01:00 60 02/20/17 00:00 60 02/19/17 23:00 97.6 60 18 101/68 (79) 97 02/19/17 23:00 60 02/19/17 22:00 60 02/19/17 21:00 60 02/19/17 20:00 60 02/19/17 19:00 97.8 60 18 110/69 (83) 96 02/19/17 18:00 60 02/19/17 17:00 60 02/19/17 16:00 60 02/19/17 15:15 97.6 60 18 117/60 (79) 100 02/19/17 15:00 60 02/19/17 14:00 60 02/19/17 13:00 60 02/19/17 12:24 60 02/19/17 11:13 60 02/19/17 11:12 97.6 60 16 112/60 (77) 98 02/19/17 11:01 60 02/19/17 10:09 64 02/19/17 09:17 60 02/19/17 08:15 60 I/O 02/19/17 02/19/17 02/19/17 02/20/17 02/20/17 02/20/17 07:00 15:00 23:00 07:00 15:00 23:00 Intake Total 240 ml 1060 ml 624 ml Output Total 500 ml 2100 ml 675 ml Balance -260 ml -1040 ml -51 ml Intake Oral 240 ml 1060 ml 480 ml IV Total 144 ml Output Urine Total 500 ml 2100 ml 675 ml # Voids 5 # Bowel Movements 0 0 0 Physical Exam GENERAL: Well developed, well nourished. No acute distress. HEENT: Jugular venous pressure normal. CHEST: Lungs clear to auscultation. CARDIAC: Irregular rate and rhythm without S3, S4, II/ HUONG base. [place] AVR sounds. ABDOMEN: Soft, nontender, no hepatosplenomegaly. Bowel sounds present. EXTREMITIES: No clubbing, cyanosis, pedal edema. Laboratory Laboratory Tests Test 02/19/17 12:43 02/20/17 01:22 02/20/17 06:00 White Blood Count 4.0 TH/MM3 2.6 TH/MM3 Red Blood Count 2.79 MIL/MM3 2.64 MIL/MM3 Hemoglobin 8.8 GM/DL 8.3 GM/DL Hematocrit 26.0 % 24.7 % Mean Corpuscular Volume 93.3 FL 93.7 FL Mean Corpuscular Hemoglobin 31.5 PG 31.5 PG Mean Corpuscular Hemoglobin Concent 33.7 % 33.6 % Red Cell Distribution Width 16.8 % 16.9 % Platelet Count 98 TH/MM3 75 TH/MM3 Mean Platelet Volume 8.1 FL 8.4 FL Neutrophils (%) (Auto) 82.7 % 78.8 % Lymphocytes (%) (Auto) 1.4 % 2.6 % Monocytes (%) (Auto) 11.8 % 14.2 % Eosinophils (%) (Auto) 3.0 % 3.3 % Basophils (%) (Auto) 1.1 % 1.1 % Neutrophils # (Auto) 3.3 TH/MM3 2.0 TH/MM3 Lymphocytes # (Auto) 0.1 TH/MM3 0.1 TH/MM3 Monocytes # (Auto) 0.5 TH/MM3 0.4 TH/MM3 Eosinophils # (Auto) 0.1 TH/MM3 0.1 TH/MM3 Basophils # (Auto) 0.0 TH/MM3 0.0 TH/MM3 CBC Comment AUTO DIFF AUTO DIFF Differential Comment AUTO DIFF CONFIRMED AUTO DIFF CONFIRMED Platelet Estimate LOW LOW Platelet Morphology Comment NORMAL NORMAL Prothrombin Time 18.2 SEC Prothromb Time International Ratio 1.6 RATIO Activated Partial Thromboplast Time 30.7 SEC 60.8 SEC Blood Urea Nitrogen 20 MG/DL 17 MG/DL Creatinine 1.19 MG/DL 1.02 MG/DL Random Glucose 109 MG/DL 89 MG/DL Calcium Level 9.0 MG/DL 8.0 MG/DL Magnesium Level 2.3 MG/DL 2.0 MG/DL Sodium Level 140 MEQ/L 143 MEQ/L Potassium Level 4.2 MEQ/L 3.6 MEQ/L Chloride Level 106 MEQ/L 110 MEQ/L Carbon Dioxide Level 28.0 MEQ/L 28.0 MEQ/L Anion Gap 6 MEQ/L 5 MEQ/L Estimat Glomerular Filtration Rate 45 ML/MIN 54 ML/MIN Assessment and Plan Problem List: (1) Unstable angina ICD Codes: I20.0 - Unstable angina Status: Acute Plan: Stable since admission. Ambulating without angina. Cath shows totally occluded, but very well collateralized RCA, no other disease noted. REC medical therapy of her CAD; continue Imdur, metoprolol; no aspirin with her severe allergy to aspirin discharge only when INR back up to ~2.5 will f/u patient in the office (2) Congestive heart failure (CHF) ICD Codes: I50.9 - Heart failure, unspecified Status: Acute Plan: Stable. CHF resolved. Good diuresis since admission. Precipitating factor for CHF not entirely clear. Recent echo showed normal LV function, normal AVR function. Her AVR was also inadvertently crossed with one of the catheters during cath and no significant gradient noted. Her CAD appears to be chronic (occluded collateralized RCA). The pedal edema likely in part due to mild RV dysfunction, etiology also unclear. Recent V/Q scan low probability. REC continue beta keira, ARB, diuretic (3) Chronic atrial fibrillation ICD Codes: I48.2 - Chronic atrial fibrillation Status: Chronic Plan: Stable. No HR control issues. INR pending this morning. Discharge only when INR back up to ~2.5. (4) History of aortic valve replacement ICD Codes: Z95.2 - Presence of prosthetic heart valve Status: Chronic Plan: Normal AVR function by recent echo in the office. Await this morning's INR. Code Status full code Discussed Condition With patient Problem Qualifiers (1) Congestive heart failure (CHF): Gui Buitrago MD Feb 20, 2017 07:55
[2017-02-20] MEDS: INSULIN ASPART SUPPLEMENTAL SCALE SQ SCH ×4 (08:00→21:00)
[2017-02-20] MEDS: METOPROLOL TARTRATE 25 MG TAB PO SCH ×2 (08:03→21:14)
[2017-02-20] MEDS: MAGNESIUM OXIDE 400 MG TAB PO SCH ×2 (08:03→21:09)
[2017-02-20] MEDS: ALLOPURINOL 300 MG TAB PO SCH (08:03)
[2017-02-20] MEDS: LOSARTAN 25 MG TAB PO SCH (08:03)
[2017-02-20] MEDS: POTASSIUM CHLORIDE 20 MEQ CONTROLLED RELEASE TAB PO SCH (08:04)
[2017-02-20] MEDS: PANTOPRAZOLE SOD 20 MG DELAYED RELEASE TAB PO SCH ×2 (08:04→21:09)
[2017-02-20] MEDS: ONDANSETRON ODT 4 MG TAB PO SCH ×2 (08:04→21:09)
[2017-02-20] MEDS: FUROSEMIDE 40 MG TAB PO SCH (08:04)
[2017-02-20] MEDS: CHOLECALCIFEROL (VIT D3) 1000 UNIT TAB PO SCH (08:04)
[2017-02-20 09:51] LABS: PROTHROMBIN TIME - PATIENT 22.3 SEC (9.8-11.6)
[2017-02-20 09:52] LABS: APTT (PATIENT) 73.8 SEC (24.3-30.1)
--- NOTE | 2017-02-20 09:54 | HHI.PR ---
Subjective Remarks Follow-up anticoagulation. Patient without complaints no bleeding tolerating heparin drip and Coumadin. Discussed with RN, if not discharged will transfer to oncology floor Objective Vitals Vital Signs Date Time Temp Pulse Resp B/P (MAP) Pulse Ox O2 Delivery O2 Flow Rate FiO2 02/20/17 07:01 58 02/20/17 06:19 60 02/20/17 05:00 60 02/20/17 04:04 60 02/20/17 03:19 60 02/20/17 03:00 98.0 60 18 93/49 (64) 97 02/20/17 02:42 60 02/20/17 01:00 60 02/20/17 00:00 60 02/19/17 23:00 97.6 60 18 101/68 (79) 97 02/19/17 23:00 60 02/19/17 22:00 60 02/19/17 21:00 60 02/19/17 20:00 60 02/19/17 19:00 97.8 60 18 110/69 (83) 96 02/19/17 18:00 60 02/19/17 17:00 60 02/19/17 16:00 60 02/19/17 15:15 97.6 60 18 117/60 (79) 100 02/19/17 15:00 60 02/19/17 14:00 60 02/19/17 13:00 60 02/19/17 12:24 60 02/19/17 11:13 60 02/19/17 11:12 97.6 60 16 112/60 (77) 98 02/19/17 11:01 60 02/19/17 10:09 64 I/O 02/19/17 02/19/17 02/19/17 02/20/17 02/20/17 02/20/17 07:00 15:00 23:00 07:00 15:00 23:00 Intake Total 240 ml 1060 ml 624 ml Output Total 500 ml 2100 ml 675 ml Balance -260 ml -1040 ml -51 ml Intake Oral 240 ml 1060 ml 480 ml IV Total 144 ml Output Urine Total 500 ml 2100 ml 675 ml # Voids 5 # Bowel Movements 0 0 0 Result Diagram: 02/20/17 0602/20/17 06 Objective Remarks Well-developed, well-nourished in no distress Pupils equally reactive to light Neck supple no JVD Equal in expansion clear to auscultation Irregularly irregular with systolic murmur and metallic sound Abdomen soft nontender Extremities with improving pitting edema no cyanosis Alert and oriented nonfocal No signs of bleeding No significant change in PE from previous Procedures Cardiac catheterization A/P Problem List: (1) Chest pain ICD Code: R07.9 - Chest pain, unspecified Status: Acute Assessment and Plan Chest pain status post cardiac catheterization with included RCA with good collateralization Acute CHF with preserved systolic function with no clear precipitant - Diuresing well continue Lasix 40 mg daily, beta keira and arb. Patient allergic to aspirin - follow Is and Os, daily weights. - telemetry. Non-Hodgkin's lymphoma On chemotherapy. - Continue management with her oncologist Chronic kidney disease stage III - monitor BMP while being diuresed. Labs stable - Avoid nephrotoxic agents. A. fib with CVR -Restarted warfarin and monitor INR. AVR -Anticoagulation restarted , discharge when INR therapeutic per cardiology. Continue heparin drip, patient agrees as long as platelet counts over 70,000 per hematology recommendations Diabetes Glucose well controlled. - sliding scale insulin coverage. Pancytopenia with recent chemotherapy. Negative hit. Continue to monitor status post oncology evaluation PPx: Coumadin Discharge Planning Not ready for discharge secondary to subtherapeutic INR needing heparin drip pending INR today Problem Qualifiers (1) Chest pain: Qualified Codes: R07.9 - Chest pain, unspecified Walker Rosado MD Feb 20, 2017 09:54
--- NOTE | 2017-02-20 12:15 | PD.ONC.PN ---
Subjective Subjective Remarks Afebrile overnight No bleeding Patient reports she is feeling okay; no acute complaints Reports she is transferring to a different room Objective Data Date Time Temp Pulse Resp B/P (MAP) Pulse Ox O2 Delivery O2 Flow Rate FiO2 02/20/17 08:15 97.9 60 8 117/70 (86) 98 02/20/17 07:01 58 02/20/17 06:19 60 02/20/17 05:00 60 02/20/17 04:04 60 02/20/17 03:19 60 02/20/17 03:00 98.0 60 18 93/49 (64) 97 02/20/17 02:42 60 02/20/17 01:00 60 02/20/17 00:00 60 02/19/17 23:00 97.6 60 18 101/68 (79) 97 02/19/17 23:00 60 02/19/17 22:00 60 02/19/17 21:00 60 02/19/17 20:00 60 02/19/17 19:00 97.8 60 18 110/69 (83) 96 02/19/17 18:00 60 02/19/17 17:00 60 02/19/17 16:00 60 02/19/17 15:15 97.6 60 18 117/60 (79) 100 02/19/17 15:00 60 02/19/17 14:00 60 02/19/17 13:00 60 02/19/17 12:24 60 02/20/17 02/20/17 02/20/17 07:00 15:00 23:00 Intake Total 624 ml Output Total 675 ml Balance -51 ml Result Diagram: 02/20/17 0602/20/17 06 Laboratory Results Laboratory Tests Test 02/19/17 12:43 02/20/17 01:22 02/20/17 06:00 02/20/17 09:00 White Blood Count 4.0 TH/MM3 2.6 TH/MM3 Red Blood Count 2.79 MIL/MM3 2.64 MIL/MM3 Hemoglobin 8.8 GM/DL 8.3 GM/DL Hematocrit 26.0 % 24.7 % Mean Corpuscular Volume 93.3 FL 93.7 FL Mean Corpuscular Hemoglobin 31.5 PG 31.5 PG Mean Corpuscular Hemoglobin Concent 33.7 % 33.6 % Red Cell Distribution Width 16.8 % 16.9 % Platelet Count 98 TH/MM3 75 TH/MM3 Mean Platelet Volume 8.1 FL 8.4 FL Neutrophils (%) (Auto) 82.7 % 78.8 % Lymphocytes (%) (Auto) 1.4 % 2.6 % Monocytes (%) (Auto) 11.8 % 14.2 % Eosinophils (%) (Auto) 3.0 % 3.3 % Basophils (%) (Auto) 1.1 % 1.1 % Neutrophils # (Auto) 3.3 TH/MM3 2.0 TH/MM3 Lymphocytes # (Auto) 0.1 TH/MM3 0.1 TH/MM3 Monocytes # (Auto) 0.5 TH/MM3 0.4 TH/MM3 Eosinophils # (Auto) 0.1 TH/MM3 0.1 TH/MM3 Basophils # (Auto) 0.0 TH/MM3 0.0 TH/MM3 CBC Comment AUTO DIFF AUTO DIFF Differential Comment AUTO DIFF CONFIRMED AUTO DIFF CONFIRMED Platelet Estimate LOW LOW Platelet Morphology Comment NORMAL NORMAL Prothrombin Time 18.2 SEC 22.3 SEC Prothromb Time International Ratio 1.6 RATIO 2.0 RATIO Activated Partial Thromboplast Time 30.7 SEC 60.8 SEC 73.8 SEC Blood Urea Nitrogen 20 MG/DL 17 MG/DL Creatinine 1.19 MG/DL 1.02 MG/DL Random Glucose 109 MG/DL 89 MG/DL Calcium Level 9.0 MG/DL 8.0 MG/DL Magnesium Level 2.3 MG/DL 2.0 MG/DL Sodium Level 140 MEQ/L 143 MEQ/L Potassium Level 4.2 MEQ/L 3.6 MEQ/L Chloride Level 106 MEQ/L 110 MEQ/L Carbon Dioxide Level 28.0 MEQ/L 28.0 MEQ/L Anion Gap 6 MEQ/L 5 MEQ/L Estimat Glomerular Filtration Rate 45 ML/MIN 54 ML/MIN Administered Medications Medications (Trade) Dose Ordered Sig/Love Route PRN Reason Start Time Stop Time Status Last Admin Dose Admin Sodium Chloride (NS Flush) 2 ml UNSCH PRN IVF FLUSH AFTER USING IV ACCESS 02/12/17 20:45 02/18/17 08:11 Losartan Potassium (Cozaar) 25 mg DAILY PO 02/13/17 09:00 02/20/17 08:03 Metoprolol Tartrate (Lopressor) 12.5 mg BID PO 02/13/17 09:00 02/20/17 08:03 Montelukast Sodium (Singulair) 10 mg HS PO 02/13/17 21:00 02/19/17 20:10 Potassium Chloride (KCl) 20 meq DAILY PO 02/13/17 09:00 02/20/17 08:04 Tizanidine HCl (Zanaflex) 4 mg HS PO 02/13/17 21:00 02/19/17 20:10 Pantoprazole Sodium (Protonix) 20 mg BID PO 02/13/17 09:15 02/20/17 08:04 Ondansetron HCl (Zofran Odt) 4 mg BID PO 02/13/17 09:00 02/20/17 08:04 Cholecalciferol (Vitamin D3) 2,000 units DAILY PO 02/13/17 10:45 02/20/17 08:04 Magnesium Oxide (Mag-Ox) 400 mg BID PO 02/13/17 11:00 02/20/17 08:03 Baclofen (Lioresal) 20 mg QID PRN PO muscle spasm 02/13/17 11:15 02/20/17 05:20 Allopurinol (Zyloprim) 300 mg DAILY PO 02/13/17 12:00 02/20/17 08:03 Insulin Aspart (NovoLOG SUPPLEMENTAL SCALE) 1 ACHS SLIDING SCALE SQ 02/15/17 12:00 02/17/17 20:53 Acetaminophen (Tylenol) 650 mg Q6HR PRN PO Pain 1 - 10 02/16/17 20:30 02/20/17 05:20 Isosorbide Mononitrate (Imdur) 60 mg DAILY@07 PO 02/18/17 07:00 02/20/17 05:21 Warfarin Sodium (Coumadin) 6 mg DAILY@16 PO 02/19/17 16:00 02/19/17 15:55 Furosemide (Lasix) 40 mg DAILY PO 02/19/17 09:00 02/20/17 08:04 Heparin Sodium/ Dextrose 250 ml @ 12 mls/hr TITRATE IV 02/19/17 12:00 02/20/17 05:25 Objective Remarks GENERAL: Older female sitting up in chair at bedside in no acute distress SKIN: Warm and dry. HEAD: Normocephalic. EYES: No injection or drainage. NECK: Supple, trachea midline. CARDIOVASCULAR: Regular rate and rhythm without murmurs. RESPIRATORY: Clear posteriorly. Breathing unlabored. GASTROINTESTINAL: Abdomen soft, non-tender, nondistended. EXTREMITIES: No cyanosis. Generalized bilateral lower extremity edema NEUROLOGICAL: No obvious focal deficit. Awake, alert, and oriented x3. Assessment/Plan Problem List: (1) Lymphoma ICD Codes: C85.90 - Non-Hodgkin lymphoma, unspecified, unspecified site Status: Acute Plan: -- Pancytopenia due to recent chemotherapy -- Counts expected to continue to jeff Hx/Workup: Patient has a history of non-Hodgkin's B-cell lymphoma and currently just had the second cycle of chemotherapy with Rituxan and bendamustine on February 10 and . She has grade 1 follicular lymphoma and presented with a large mass in the mesentery, clinically stage II. It is expected that her blood counts will continue to jeff. She presented to the hospital with complaints of increased chest pain and shortness of breath that has been going on for 1-2 weeks accompanied with lower extremity edema despite diuretic use. She has a history of aortic valve replacement and is on Coumadin. (2) Chest pain ICD Codes: R07.9 - Chest pain, unspecified Status: Acute Plan: -- Cardiology following -- Cardiac catheterization shows a totally excluded right coronary artery with collaterals present -- On Imdur (3) Chronic atrial fibrillation ICD Codes: I48.2 - Chronic atrial fibrillation Status: Chronic Plan: -- Cardiology following -- On Coumadin Assessment 66 y/o female with non-Hodgkin's lymphoma with recent chemotherapy presented with lower extremity edema, chest pain and shortness of breath Plan 1. Continue Coumadin for A. fib 2. Thrombocytopenia today likely due to recent chemotherapy; will discontinue heparin if less than 70,000 in a.m. 3. Monitor CBC 4. Monitor for bleeding. Attending Statement The exam, history, and the medical decision-making described in the above note were completed with the assistance of the mid-level provider. I reviewed and agree with the findings presented. I attest that I had a [id number] encounter with the patient on the same day, and personally performed and documented my assessment and findings in the medical record. Feeling well, no bleeding. Blood counts trended lower today due to recent chemotx. Stop heparin when INR therapeutic. Monitor CBC. Problem Qualifiers (1) Chest pain: Qualified Codes: R07.9 - Chest pain, unspecified Jaz Cody Feb 20, 2017 12:15 Lane Mayberry MD Feb 20, 2017 13:38
--- NOTE | 2017-02-20 15:56 | HHI.FF ---
Face to Face Verification Diagnosis: (1) Chest pain (2) History of aortic valve replacement Physical Therapy Order: Evaluate and Treat, Improve ambulation, Strength and gait training Home Health Nursing Order: Medical education Signs/symptoms of disease process Medication education-adverse effect Nursing assessment with vital signs I have seen patient Radha Bertrand on 02/20/17. My clinical findings support the need for the requested home health care services because: Deconditioned w/ increased weakness I certify that my clinical findings support that this patient is homebound because: Unsteady gait/balance Unsafe to leave home unassisted Walker Rosado MD Feb 20, 2017 15:56
[2017-02-20] MEDS: WARFARIN SOD 6 MG TAB PO SCH (16:52)
[2017-02-20] MEDS: MONTELUKAST SODIUM 10 MG TAB PO SCH (21:09)
[2017-02-20] MEDS ORDERED: ACETAMINOPHEN/HYDROcodone 325 MG/5 MG TAB PO ONE (23:45)
[2017-02-21] VITALS (7 sets, daily range): BP systolic 97–126; BP diastolic 48–62; PULSE 60–66; RESP 18–20; TEMP 96.1–98; O2SAT 97–100
[2017-02-21] MEDS: ISOSORBIDE MONONITRATE 60 MG TAB PO SCH (06:12)
[2017-02-21 07:09] LABS: AUTOMATED NEUTROPHIL # 2.3 TH/MM3 (1.8-7.7); EOSINOPHIL # 0.1 TH/MM3 (0-0.4); EOSINOPHIL % 2.3 % (0.0-4.0); HEMATOCRIT 24.8 % (35.0-46.0); LYMPH % 2.3 % (9.0-44.0); LYMPHOCYTE # 0.1 TH/MM3 (1.0-4.8); MEAN CELL VOLUME 94.9 FL (80.0-100.0); MEAN CORPUSCULAR HEMOGLOBIN 31.9 PG (27.0-34.0); MEAN CORPUSCULAR HGB CONC 33.6 % (32.0-36.0); NEUT % 79.4 % (16.0-70.0); PLATELET COUNT 74 TH/MM3 (150-450); RED BLOOD COUNT 2.61 MIL/MM3 (4.00-5.30); RED CELL DISTRIBUTION WIDTH 16.8 % (11.6-17.2); WHITE BLOOD COUNT 2.9 TH/MM3 (4.0-11.0)
[2017-02-21 07:12] LABS: HEMO FLAGS AUTO DIFF
[2017-02-21 07:19] LABS: INTERNATIONAL NORMALIZED RATIO 2.2 RATIO; PROTHROMBIN TIME - PATIENT 25.1 SEC (9.8-11.6)
[2017-02-21 07:33] LABS: APTT (PATIENT) 106.9 SEC (24.3-30.1)
[2017-02-21] MEDS: INSULIN ASPART SUPPLEMENTAL SCALE SQ SCH ×4 (08:00→21:00)
[2017-02-21] MEDS: ALLOPURINOL 300 MG TAB PO SCH (09:09)
[2017-02-21] MEDS: PANTOPRAZOLE SOD 20 MG DELAYED RELEASE TAB PO SCH ×2 (09:09→21:00)
[2017-02-21] MEDS: METOPROLOL TARTRATE 25 MG TAB PO SCH ×2 (09:09→21:00)
[2017-02-21] MEDS: CHOLECALCIFEROL (VIT D3) 1000 UNIT TAB PO SCH (09:09)
[2017-02-21] MEDS: ONDANSETRON ODT 4 MG TAB PO SCH ×2 (09:09→21:00)
[2017-02-21] MEDS: FUROSEMIDE 40 MG TAB PO SCH (09:10)
[2017-02-21] MEDS: LOSARTAN 25 MG TAB PO SCH (09:10)
[2017-02-21] MEDS: POTASSIUM CHLORIDE 20 MEQ CONTROLLED RELEASE TAB PO SCH (09:11)
[2017-02-21 10:17] LABS: APTT (PATIENT) 58.1 SEC (24.3-30.1)
[2017-02-21] MEDS: MAGNESIUM OXIDE 400 MG TAB PO SCH ×2 (10:31→21:00)
[2017-02-21 11:52] LABS: OVALOCYTES 1+ (NORMAL); PLATELET ESTIMATE SMEAR LOW (NORMAL); PLATELET MORPHOLOGY NORMAL (NORMAL); SCAN/DIFF AUTO DIFF CONFIRMED
--- NOTE | 2017-02-21 12:02 | PD.ONC.PN ---
Subjective Subjective Remarks Afebrile overnight. Patient resting in room in nad. Eager to go home. Objective Data Date Time Temp Pulse Resp B/P (MAP) Pulse Ox O2 Delivery O2 Flow Rate FiO2 02/21/17 08:00 96.1 60 18 120/61 (80) 100 02/21/17 04:00 98.0 62 20 97/48 (64) 97 02/21/17 00:00 97.2 60 20 105/52 (69) 97 02/20/17 21:00 60 02/20/17 20:00 97.0 60 20 114/56 (75) 100 02/20/17 20:00 18 02/20/17 17:30 96.6 60 20 145/65 (91) 99 02/20/17 17:01 60 02/20/17 16:00 60 02/20/17 15:15 98.2 60 18 100/53 (69) 100 02/20/17 15:00 60 02/20/17 14:00 60 02/20/17 13:00 60 02/20/17 12:01 60 02/21/17 02/21/17 02/21/17 07:00 15:00 23:00 Intake Total 381 ml Output Total 350 ml Balance 31 ml Result Diagram: 02/21/17 0619 02/20/17 0600 Laboratory Results Laboratory Tests Test 02/21/17 06:19 02/21/17 09:30 White Blood Count 2.9 TH/MM3 Red Blood Count 2.61 MIL/MM3 Hemoglobin 8.3 GM/DL Hematocrit 24.8 % Mean Corpuscular Volume 94.9 FL Mean Corpuscular Hemoglobin 31.9 PG Mean Corpuscular Hemoglobin Concent 33.6 % Red Cell Distribution Width 16.8 % Platelet Count 74 TH/MM3 Mean Platelet Volume 9.8 FL Neutrophils (%) (Auto) 79.4 % Lymphocytes (%) (Auto) 2.3 % Monocytes (%) (Auto) 15.0 % Eosinophils (%) (Auto) 2.3 % Basophils (%) (Auto) 1.0 % Neutrophils # (Auto) 2.3 TH/MM3 Lymphocytes # (Auto) 0.1 TH/MM3 Monocytes # (Auto) 0.4 TH/MM3 Eosinophils # (Auto) 0.1 TH/MM3 Basophils # (Auto) 0.0 TH/MM3 CBC Comment AUTO DIFF Differential Comment AUTO DIFF CONFIRMED Platelet Estimate LOW Platelet Morphology Comment NORMAL Ovalocytes 1+ Prothrombin Time 25.1 SEC Prothromb Time International Ratio 2.2 RATIO Activated Partial Thromboplast Time 106.9 SEC 58.1 SEC Administered Medications Medications (Trade) Dose Ordered Sig/Love Route PRN Reason Start Time Stop Time Status Last Admin Dose Admin Sodium Chloride (NS Flush) 2 ml UNSCH PRN IVF FLUSH AFTER USING IV ACCESS 02/12/17 20:45 02/18/17 08:11 Losartan Potassium (Cozaar) 25 mg DAILY PO 02/13/17 09:00 02/21/17 09:10 Metoprolol Tartrate (Lopressor) 12.5 mg BID PO 02/13/17 09:00 02/21/17 09:09 Montelukast Sodium (Singulair) 10 mg HS PO 02/13/17 21:00 02/20/17 21:09 Potassium Chloride (KCl) 20 meq DAILY PO 02/13/17 09:00 02/21/17 09:11 Tizanidine HCl (Zanaflex) 4 mg HS PO 02/13/17 21:00 02/20/17 21:52 Pantoprazole Sodium (Protonix) 20 mg BID PO 02/13/17 09:15 02/21/17 09:09 Ondansetron HCl (Zofran Odt) 4 mg BID PO 02/13/17 09:00 02/21/17 09:09 Cholecalciferol (Vitamin D3) 2,000 units DAILY PO 02/13/17 10:45 02/21/17 09:09 Magnesium Oxide (Mag-Ox) 400 mg BID PO 02/13/17 11:00 02/21/17 10:31 Baclofen (Lioresal) 20 mg QID PRN PO muscle spasm 02/13/17 11:15 02/20/17 21:52 Allopurinol (Zyloprim) 300 mg DAILY PO 02/13/17 12:00 02/21/17 09:09 Insulin Aspart (NovoLOG SUPPLEMENTAL SCALE) 1 ACHS SLIDING SCALE SQ 02/15/17 12:00 02/20/17 17:00 Acetaminophen (Tylenol) 650 mg Q6HR PRN PO Pain 1 - 10 02/16/17 20:30 02/20/17 18:26 Isosorbide Mononitrate (Imdur) 60 mg DAILY@07 PO 02/18/17 07:00 02/20/17 05:21 Warfarin Sodium (Coumadin) 6 mg DAILY@16 PO 02/19/17 16:00 02/20/17 16:52 Furosemide (Lasix) 40 mg DAILY PO 02/19/17 09:00 02/21/17 09:10 Heparin Sodium/ Dextrose 250 ml @ 12 mls/hr TITRATE IV 02/19/17 12:00 02/20/17 16:38 Objective Remarks GENERAL: Pleasant female sitting up in bed in nad. SKIN: Warm and dry. HEAD: Normocephalic. EYES: No injection or drainage. NECK: Supple, trachea midline. CARDIOVASCULAR: Regular rate and rhythm RESPIRATORY: clear to auscultation bilaterally. GASTROINTESTINAL: Abdomen soft, non-tender, nondistended. EXTREMITIES: No cyanosis. lower extremities with edema bilaterally and chronic venous stasis changes. NEUROLOGICAL: awake and alert, normal speech. moving all extremities. Assessment/Plan Problem List: (1) Lymphoma ICD Codes: C85.90 - Non-Hodgkin lymphoma, unspecified, unspecified site Status: Acute Plan: -- Pancytopenia due to recent chemotherapy --discontinue heparin if platelet count less than 70,000 -- Counts expected to continue to jeff Hx/Workup: Patient has a history of non-Hodgkin's B-cell lymphoma and currently just had the second cycle of chemotherapy with Rituxan and bendamustine on February 10 and . She has grade 1 follicular lymphoma and presented with a large mass in the mesentery, clinically stage II. It is expected that her blood counts will continue to jeff. She presented to the hospital with complaints of increased chest pain and shortness of breath that has been going on for 1-2 weeks accompanied with lower extremity edema despite diuretic use. She has a history of aortic valve replacement and is on Coumadin. (2) Chest pain ICD Codes: R07.9 - Chest pain, unspecified Status: Acute Plan: -- Cardiology following -- Cardiac catheterization shows a totally excluded right coronary artery with collaterals present -- On Imdur (3) Chronic atrial fibrillation ICD Codes: I48.2 - Chronic atrial fibrillation Status: Chronic Plan: -- Cardiology following -- On Coumadin Assessment 66 y/o female with non-Hodgkin's lymphoma with recent chemotherapy presented with lower extremity edema, chest pain and shortness of breath Plan 1. Continue Coumadin. 2. Monitor CBC 3. Monitor for bleeding. 4. once discharged, follow up in clinic Attending Statement The exam, history, and the medical decision-making described in the above note were completed with the assistance of the mid-level provider. I reviewed and agree with the findings presented. I attest that I had a [id number] encounter with the patient on the same day, and personally performed and documented my assessment and findings in the medical record. No CP/SOB. No bleeding noted. CBC stable today and likely will trend up soon. Problem Qualifiers (1) Lymphoma: (2) Chest pain: Qualified Codes: R07.9 - Chest pain, unspecified Yokasta Andrew Feb 21, 2017 12:01 Lane Mayberry MD Feb 21, 2017 15:26
[2017-02-21 12:58] LABS: APTT (PATIENT) 82.8 SEC (24.3-30.1)
--- NOTE | 2017-02-21 13:02 | HHI.PR ---
Subjective Remarks Follow-up AVR on anticoagulation. Tolerating heparin drip. INR 2.2. No bleeding. Discussed with RN Objective Vitals Vital Signs Date Time Temp Pulse Resp B/P (MAP) Pulse Ox O2 Delivery O2 Flow Rate FiO2 02/21/17 12:42 96.1 61 18 111/54 (73) 98 02/21/17 08:00 96.1 60 18 120/61 (80) 100 02/21/17 04:00 98.0 62 20 97/48 (64) 97 02/21/17 00:00 97.2 60 20 105/52 (69) 97 02/20/17 21:00 60 02/20/17 20:00 97.0 60 20 114/56 (75) 100 02/20/17 20:00 18 02/20/17 17:30 96.6 60 20 145/65 (91) 99 02/20/17 17:01 60 02/20/17 16:00 60 02/20/17 15:15 98.2 60 18 100/53 (69) 100 02/20/17 15:00 60 02/20/17 14:00 60 I/O 02/20/17 02/20/17 02/20/17 02/21/17 02/21/17 02/21/17 07:00 15:00 23:00 07:00 15:00 23:00 Intake Total 624 ml 245 ml 580 ml 381 ml Output Total 675 ml 550 ml 350 ml Balance -51 ml 245 ml 30 ml 31 ml Intake Oral 480 ml 580 ml 120 ml IV Total 144 ml 245 ml 261 ml Output Urine Total 675 ml 550 ml 350 ml # Voids 1 # Bowel Movements 0 0 0 Result Diagram: 02/21/17 0619 02/20/17 0600 Objective Remarks Well-developed, well-nourished in no distress Pupils equally reactive to light Neck supple no JVD Equal in expansion clear to auscultation Irregularly irregular with systolic murmur and metallic sound Abdomen soft nontender Extremities with improving pitting edema no cyanosis Alert and oriented nonfocal No signs of bleeding Procedures Cardiac catheterization A/P Problem List: (1) Chest pain ICD Code: R07.9 - Chest pain, unspecified Status: Acute Assessment and Plan Chest pain status post cardiac catheterization with included RCA with good collateralization Acute CHF with preserved systolic function with no clear precipitant - Diuresing well continue Lasix 40 mg daily, beta keira and arb. Patient allergic to aspirin - follow Is and Os, daily weights. - telemetry. Non-Hodgkin's lymphoma On chemotherapy. - Continue management with her oncologist Chronic kidney disease stage III - monitor BMP while being diuresed. Labs stable - Avoid nephrotoxic agents. A. fib with CVR -Restarted warfarin and monitor INR. AVR -Anticoagulation restarted , discharge when INR therapeutic per cardiology. INR 2.2. Continue heparin drip, patient agrees as long as platelet counts over 70,000 per hematology recommendations Diabetes Glucose well controlled. - sliding scale insulin coverage. Pancytopenia with recent chemotherapy. Negative hit. Continue to monitor status post oncology evaluation PPx: Coumadin Discharge Planning Not ready for discharge secondary to subtherapeutic INR needing heparin drip. INR 2.2 needs to be at least 2.5 before discharge Problem Qualifiers (1) Chest pain: Qualified Codes: R07.9 - Chest pain, unspecified Walker Roasdo MD Feb 21, 2017 13:02
[2017-02-21] MEDS: HEPARIN-D5W 25,000 U/250 ML 250 ML IV SCH (15:40)
[2017-02-21] MEDS: WARFARIN SOD 6 MG TAB PO SCH (17:50)
[2017-02-21 20:52] LABS: APTT (PATIENT) 41.2 SEC (24.3-30.1)
[2017-02-21] MEDS: BACLOFEN 20 MG TAB PO PRN (21:00)
[2017-02-21] MEDS: MONTELUKAST SODIUM 10 MG TAB PO SCH (21:00)
[2017-02-21] MEDS ORDERED: ACETAMINOPHEN 325 MG TAB PO PRN (21:30)
[2017-02-21] MEDS: ACETAMINOPHEN/HYDROcodone 325 MG/5 MG TAB PO PRN (21:34)
[2017-02-22] VITALS (8 sets, daily range): BP systolic 89–126; BP diastolic 49–59; PULSE 60–80; RESP 14–20; TEMP 96–97.9; O2SAT 98–100
[2017-02-22 03:12] LABS: AUTOMATED NEUTROPHIL # 2.1 TH/MM3 (1.8-7.7); BASOPHIL % 1.1 % (0.0-2.0); EOSINOPHIL # 0.1 TH/MM3 (0-0.4); EOSINOPHIL % 2.5 % (0.0-4.0); HEMATOCRIT 23.9 % (35.0-46.0); LYMPH % 2.7 % (9.0-44.0); LYMPHOCYTE # 0.1 TH/MM3 (1.0-4.8); MEAN CELL VOLUME 94.8 FL (80.0-100.0); MEAN CORPUSCULAR HEMOGLOBIN 31.7 PG (27.0-34.0); MEAN CORPUSCULAR HGB CONC 33.4 % (32.0-36.0); MONO % 15.6 % (0.0-8.0); NEUT % 78.1 % (16.0-70.0); PLATELET COUNT 73 TH/MM3 (150-450); RED BLOOD COUNT 2.52 MIL/MM3 (4.00-5.30); RED CELL DISTRIBUTION WIDTH 17.8 % (11.6-17.2); WHITE BLOOD COUNT 2.6 TH/MM3 (4.0-11.0)
[2017-02-22 03:14] LABS: HEMO FLAGS DIFF FINAL
[2017-02-22 03:19] LABS: APTT (PATIENT) 75.1 SEC (24.3-30.1)
[2017-02-22] MEDS: ISOSORBIDE MONONITRATE 60 MG TAB PO SCH (07:00)
[2017-02-22] MEDS: INSULIN ASPART SUPPLEMENTAL SCALE SQ SCH ×4 (08:00→21:00)
[2017-02-22] MEDS: CHOLECALCIFEROL (VIT D3) 1000 UNIT TAB PO SCH (08:54)
[2017-02-22] MEDS: MAGNESIUM OXIDE 400 MG TAB PO SCH ×2 (08:54→21:50)
[2017-02-22] MEDS: POTASSIUM CHLORIDE 20 MEQ CONTROLLED RELEASE TAB PO SCH (08:54)
[2017-02-22] MEDS: FUROSEMIDE 40 MG TAB PO SCH (08:54)
[2017-02-22] MEDS: METOPROLOL TARTRATE 25 MG TAB PO SCH ×2 (08:54→21:50)
[2017-02-22] MEDS: LOSARTAN 25 MG TAB PO SCH (08:55)
[2017-02-22] MEDS: PANTOPRAZOLE SOD 20 MG DELAYED RELEASE TAB PO SCH ×2 (08:55→21:50)
[2017-02-22] MEDS: ONDANSETRON ODT 4 MG TAB PO SCH ×2 (08:55→21:49)
[2017-02-22] MEDS: ALLOPURINOL 300 MG TAB PO SCH (08:55)
--- NOTE | 2017-02-22 10:35 | HHI.PR ---
Subjective Remarks Follow-up AVR and heparin anticoagulation. Patient has no complaints no bleeding. Discussed with RN, discharge INR over 2.5 Objective Vitals Vital Signs Date Time Temp Pulse Resp B/P (MAP) Pulse Ox O2 Delivery O2 Flow Rate FiO2 02/22/17 08:00 97.9 60 14 124/58 (80) 99 02/22/17 04:00 96.7 61 17 95/54 (68) 98 Manual Cuff/Auscultation 02/22/17 01:00 110/58 (75) Automatic Cuff 02/22/17 00:39 19 02/22/17 00:00 96.0 61 17 89/49 (62) 99 02/21/17 21:00 60 02/21/17 20:00 96.1 66 18 118/58 (78) 100 02/21/17 16:00 96.5 60 18 126/62 (83) 100 02/21/17 12:42 96.1 61 18 111/54 (73) 98 I/O 02/21/17 02/21/17 02/21/17 02/22/17 02/22/17 02/22/17 07:00 15:00 23:00 07:00 15:00 23:00 Intake Total 381 ml 1490 ml 324 ml Output Total 350 ml 400 ml 350 ml Balance 31 ml 1090 ml -26 ml Intake Oral 120 ml 1240 ml 240 ml IV Total 261 ml 250 ml 84 ml Output Urine Total 350 ml 400 ml 350 ml # Voids 6 # Bowel Movements 0 Result Diagram: 02/22/17 0214 02/20/17 0600 Objective Remarks Well-developed, well-nourished in no distress Pupils equally reactive to light Neck supple no JVD Equal in expansion clear to auscultation Irregularly irregular with systolic murmur and metallic sound Abdomen soft nontender Extremities with improving pitting edema no cyanosis, stable bruise right arm Alert and oriented nonfocal Procedures Cardiac catheterization A/P Problem List: (1) Chest pain ICD Code: R07.9 - Chest pain, unspecified Status: Acute Assessment and Plan Chest pain status post cardiac catheterization with included RCA with good collateralization Acute CHF with preserved systolic function with no clear precipitant - Diuresing well continue Lasix 40 mg daily, beta keira and arb. Patient allergic to aspirin - follow Is and Os, daily weights. - telemetry. Non-Hodgkin's lymphoma On chemotherapy. - Continue management with her oncologist Chronic kidney disease stage III - monitor BMP while being diuresed. Labs stable - Avoid nephrotoxic agents. A. fib with CVR -Restarted warfarin and monitor INR. AVR -Anticoagulation restarted , discharge when INR therapeutic per cardiology. INR 2.2. Continue heparin drip, patient agrees as long as platelet counts over 70,000 per hematology recommendations Diabetes Glucose well controlled. - sliding scale insulin coverage. Pancytopenia with recent chemotherapy. Negative hit. Continue to monitor status post oncology evaluation PPx: Coumadin Discharge Planning Not ready for discharge secondary to subtherapeutic INR needing heparin drip. INR 2.2 needs to be at least 2.5 before discharge Problem Qualifiers (1) Chest pain: Qualified Codes: R07.9 - Chest pain, unspecified Walker Rosado MD Feb 22, 2017 10:35
[2017-02-22 11:23] LABS: APTT (PATIENT) 70.7 SEC (24.3-30.1)
[2017-02-22 11:49] LABS: INTERNATIONAL NORMALIZED RATIO 2.2 RATIO; PROTHROMBIN TIME - PATIENT 25.4 SEC (9.8-11.6)
[2017-02-22] MEDS: WARFARIN SOD 6 MG TAB PO SCH (17:48)
[2017-02-22 19:05] LABS: APTT (PATIENT) 63.2 SEC (24.3-30.1)
[2017-02-22] MEDS: ACETAMINOPHEN/HYDROcodone 325 MG/5 MG TAB PO PRN (21:49)
[2017-02-22] MEDS: MONTELUKAST SODIUM 10 MG TAB PO SCH (21:50)
[2017-02-22] MEDS: BACLOFEN 20 MG TAB PO PRN (21:54)
[2017-02-23] VITALS: BP 141/67; PULSE 60; RESP 16; TEMP 96.8; O2SAT 97
[2017-02-23 02:43] LABS: APTT (PATIENT) 82.8 SEC (24.3-30.1)
[2017-02-23 03:20] LABS: AUTOMATED NEUTROPHIL # 2.4 TH/MM3 (1.8-7.7); BASOPHIL % 1.1 % (0.0-2.0); EOSINOPHIL # 0.1 TH/MM3 (0-0.4); EOSINOPHIL % 2.3 % (0.0-4.0); HEMATOCRIT 24.7 % (35.0-46.0); LYMPH % 3.1 % (9.0-44.0); LYMPHOCYTE # 0.1 TH/MM3 (1.0-4.8); MEAN CELL VOLUME 94.6 FL (80.0-100.0); MEAN CORPUSCULAR HEMOGLOBIN 32.3 PG (27.0-34.0); MEAN CORPUSCULAR HGB CONC 34.2 % (32.0-36.0); MONO % 13.9 % (0.0-8.0); NEUT % 79.6 % (16.0-70.0); PLATELET COUNT 82 TH/MM3 (150-450); RED BLOOD COUNT 2.61 MIL/MM3 (4.00-5.30); RED CELL DISTRIBUTION WIDTH 17.8 % (11.6-17.2)
[2017-02-23 03:28] LABS: HEMO FLAGS DIFF FINAL
[2017-02-23 04:00] VITALS: BP 96/58; PULSE 60; RESP 17; TEMP 97.1; O2SAT 99
[2017-02-23 04:42] LABS: APTT (PATIENT) 39.1 SEC (24.3-30.1); INTERNATIONAL NORMALIZED RATIO 2.4 RATIO
[2017-02-23 08:00] VITALS: BP 131/79; PULSE 65; TEMP 96; O2SAT 100
[2017-02-23] MEDS: INSULIN ASPART SUPPLEMENTAL SCALE SQ SCH ×2 (08:00→12:00)
[2017-02-23 08:17] VITALS: PULSE 60
[2017-02-23] MEDS: PANTOPRAZOLE SOD 20 MG DELAYED RELEASE TAB PO SCH (08:36)
[2017-02-23] MEDS: LOSARTAN 25 MG TAB PO SCH (08:36)
[2017-02-23] MEDS: CHOLECALCIFEROL (VIT D3) 1000 UNIT TAB PO SCH (08:37)
[2017-02-23] MEDS: ISOSORBIDE MONONITRATE 60 MG TAB PO SCH (08:37)
[2017-02-23] MEDS: ONDANSETRON ODT 4 MG TAB PO SCH (08:37)
[2017-02-23] MEDS: POTASSIUM CHLORIDE 20 MEQ CONTROLLED RELEASE TAB PO SCH (08:37)
[2017-02-23] MEDS: MAGNESIUM OXIDE 400 MG TAB PO SCH (08:37)
[2017-02-23] MEDS: METOPROLOL TARTRATE 25 MG TAB PO SCH (08:37)
[2017-02-23] MEDS: ALLOPURINOL 300 MG TAB PO SCH (08:38)
[2017-02-23] MEDS: FUROSEMIDE 40 MG TAB PO SCH (08:38)
[2017-02-23] MEDS: BACLOFEN 20 MG TAB PO PRN (08:40)
--- NOTE | 2017-02-23 10:31 | HHI.DS ---
Discharge Summary Admission Date Feb 14, 2017 at 09:45 Discharge Date: Feb 23, 2017 Admitting Diagnosis Chest pain (1) Chest pain ICD Code: R07.9 - Chest pain, unspecified Status: Acute Procedures Cardiac catheterization Brief History - From Admission This is a 66-year-old female with history of non-Hodgkin's B-cell lymphoma recently diagnosed November, atrial fibrillation and ventricular paced, history of aortic valve replacement in 1986 a redo in 1989, congestive heart failure, recent pneumonia, and diabetes type 2 that presents to ED with the primary complaint of chest discomfort and shortness of breath for about a week to week and a half. She states the tightness in her chest/pressure chest with shortness of breath primarily was with light activity which included initially walking her groceries into the house. That has progressed to having difficulty walking from the car without the groceries. She is also had discomfort while sitting at rest. She also cannot recall that for the past almost 2 months she' s had to sleep on her recliner. States when she lies flat she will have a pressure in her chest and will get short of breath. CBC/BMP: 02/23/17 0253 02/20/17 0600 Significant Findings Laboratory Tests Test 02/21/17 06:19 02/21/17 09:30 02/21/17 11:40 02/21/17 20:14 White Blood Count 2.9 TH/MM3 (4.0-11.0) Red Blood Count 2.61 MIL/MM3 (4.00-5.30) Hemoglobin 8.3 GM/DL (11.6-15.3) Hematocrit 24.8 % (35.0-46.0) Platelet Count 74 TH/MM3 (150-450) Neutrophils (%) (Auto) 79.4 % (16.0-70.0) Lymphocytes (%) (Auto) 2.3 % (9.0-44.0) Monocytes (%) (Auto) 15.0 % (0.0-8.0) Lymphocytes # (Auto) 0.1 TH/MM3 (1.0-4.8) Platelet Estimate LOW (NORMAL) Ovalocytes 1+ (NORMAL) Prothrombin Time 25.1 SEC (9.8-11.6) Activated Partial Thromboplast Time 106.9 SEC (24.3-30.1) 58.1 SEC (24.3-30.1) 82.8 SEC (24.3-30.1) 41.2 SEC (24.3-30.1) Test 02/22/17 02:14 02/22/17 11:00 02/22/17 17:55 02/23/17 00:18 White Blood Count 2.6 TH/MM3 (4.0-11.0) Red Blood Count 2.52 MIL/MM3 (4.00-5.30) Hemoglobin 8.0 GM/DL (11.6-15.3) Hematocrit 23.9 % (35.0-46.0) Red Cell Distribution Width 17.8 % (11.6-17.2) Platelet Count 73 TH/MM3 (150-450) Neutrophils (%) (Auto) 78.1 % (16.0-70.0) Lymphocytes (%) (Auto) 2.7 % (9.0-44.0) Monocytes (%) (Auto) 15.6 % (0.0-8.0) Lymphocytes # (Auto) 0.1 TH/MM3 (1.0-4.8) Activated Partial Thromboplast Time 75.1 SEC (24.3-30.1) 70.7 SEC (24.3-30.1) 63.2 SEC (24.3-30.1) 82.8 SEC (24.3-30.1) Prothrombin Time 25.4 SEC (9.8-11.6) Test 02/23/17 02:53 02/23/17 04:22 White Blood Count 3.0 TH/MM3 (4.0-11.0) Red Blood Count 2.61 MIL/MM3 (4.00-5.30) Hemoglobin 8.4 GM/DL (11.6-15.3) Hematocrit 24.7 % (35.0-46.0) Red Cell Distribution Width 17.8 % (11.6-17.2) Platelet Count 82 TH/MM3 (150-450) Neutrophils (%) (Auto) 79.6 % (16.0-70.0) Lymphocytes (%) (Auto) 3.1 % (9.0-44.0) Monocytes (%) (Auto) 13.9 % (0.0-8.0) Lymphocytes # (Auto) 0.1 TH/MM3 (1.0-4.8) Prothrombin Time 28.0 SEC (9.8-11.6) Activated Partial Thromboplast Time 39.1 SEC (24.3-30.1) Imaging Last Impressions Chest X-Ray 02/12/172033 Signed Impressions: Service Date/Time: Sunday, February 12, 2017 20:51 - CONCLUSION: 1. Small left pleural effusion and tiny right pleural effusion. 2. Cardiomegaly. Jaycob Camara MD PE at Discharge Well-developed, well-nourished in no distress Pupils equally reactive to light Neck supple no JVD Equal in expansion clear to auscultation Irregularly irregular with systolic murmur and metallic sound Abdomen soft nontender Extremities with improving pitting edema no cyanosis, stable bruise right arm Alert and oriented nonfocal Hospital Course Chest pain status post cardiac catheterization with included RCA with good collateralization Acute CHF with preserved systolic function with no clear precipitant - Diuresing well continue Lasix 40 mg daily, beta keira and arb. Patient allergic to aspirin - follow Is and Os, daily weights. - telemetry. Non-Hodgkin's lymphoma On chemotherapy. - Continue management with her oncologist Chronic kidney disease stage III - monitor BMP while being diuresed. Labs stable - Avoid nephrotoxic agents. A. fib with CVR -Restarted warfarin and monitor INR. AVR -Anticoagulation restarted , discharge when INR therapeutic per cardiology. INR 2.4. Continue heparin drip, patient agrees as long as platelet counts over 70,000 per hematology recommendations. Pt wants to be dc today with INR 2.4 accepting risk of CVA. She is concerned gilberto nosocomial infection carroll she is immunocompromised Diabetes Glucose well controlled. - sliding scale insulin coverage. Pancytopenia with recent chemotherapy. Negative hit. Continue to monitor status post oncology evaluation PPx: Coumadin Pt Condition on Discharge: Stable Discharge Disposition: Disch w/ Home Health Serv Discharge Time: > 30 minutes Discharge Instructions DIET: Follow Instructions for: Heart Healthy Diet Activities you can perform: Regular-No Restrictions Activities to Avoid: Driving Follow up Referrals: Cardiology - 1 Week PCP Follow-up - 2-3 Days New Orders: PT/INR New Medications: Nitroglycerin SL (Nitroglycerin SL) 0.4 Mg Subl 0.4 MG SL DIRECTED PRN for CHEST PAIN, #100 TAB.SL 0 Refills ONE TABLET UNDER THE TONGUE NEEDED FOR CHEST PAIN, REPEAT EVERY 5 MINS FOR A TOTAL OF 3 DOSES OR CALL 911 IF NO RELIEF Isosorbide Mononitrate ER (Isosorbide Mononitrate ER) 60 Mg Tab 60 MG PO DAILY@07 for chest pain, #30 TAB Continued Medications: Allopurinol (Allopurinol) 300 Mg Tab 300 MG PO DAILY for Gout, #30 TAB 0 Refills Baclofen (Baclofen) 20 Mg Tab 20 MG PO QID for Muscle Spasm, TAB 0 Refills Cholecalciferol (Vitamin D3) 2,000 Unit Cap 2000 UNITS PO DAILY for Nutritional Supplement, #1 BOTTLE 0 Refills Furosemide (Lasix) 40 Mg Tab 40 MG PO DAILY, #30 TAB 0 Refills Losartan (Cozaar) 25 Mg Tab 25 MG PO DAILY for Blood Pressure Management, #30 TAB 0 Refills Lovastatin (Lovastatin) 10 Mg Tab 10 MG PO 2XWEEK for Cholesterol Management, #30 TAB 0 Refills Magnesium Oxide (Magnesium) 400 Mg Tablet 1 TAB PO BID Metoprolol Tartrate (Metoprolol Tartrate) 25 Mg Tab 12.5 MG PO BID, #60 TAB 0 Refills Montelukast (Singulair) 10 Mg Tab 10 MG PO HS, #30 TAB 0 Refills Omeprazole (Omeprazole) 20 Mg Tab 20 MG PO BID, #30 TAB 0 Refills Ondansetron HCl (Ondansetron HCl) 4 Mg Tab 4 MG PO BID Potassium Chloride ER (Potassium Chloride ER) 20 Meq Tab 20 MEQ PO DAILY for Electrolyte Replacement, #30 TAB 0 Refills Tizanidine (Tizanidine) 4 Mg Tab 4 MG PO HS for Muscle Spasm, TAB 0 Refills Warfarin (Warfarin) 6 Mg Tab 6 MG PO DAILY for Blood Clot Prevention, #30 TAB 0 Refills Warfarin (Warfarin) 6 Mg Tab 12 MG PO Q4D for Blood Clot Prevention, #30 TAB 0 Refills Discontinued Medications: Acetaminophen (Tylenol Extra Strength) 500 Mg Tablet 1000 QID Additional Information Has standing PT/INR with PCP, to obtain repeat labs in am I spent 35 minutes [id number] with the patient discussing the patient's disposition. Over half of time spent was devoted to counseling the patient and coordinating care with caregivers and case management. Walker Rosado MD Feb 23, 2017 10:31
[2017-02-23 12:00] VITALS: BP 104/56; RESP 15; O2SAT 100
[2017-02-23 12:32] LABS: APTT (PATIENT) 37.1 SEC (24.3-30.1); INTERNATIONAL NORMALIZED RATIO 2.3 RATIO; PROTHROMBIN TIME - PATIENT 26.8 SEC (9.8-11.6)
[2017-02-23 12:40] VITALS: PULSE 72
[2017-02-25 08:00] VITALS: BP 137/63; PULSE 90; RESP 18; TEMP 96.9; O2SAT 95
== END 2017-02-23 15:40 | disposition home health service (06) | DRG 286 ==
LOC: NEPE 19:52 → NEDA 22:57 → NEPHCDU 02-13 00:16 → OBSVTOIN 02-14 09:45 → HCIN 02-14 16:30 → HOCA 02-20 17:31
PROVIDERS: ADMIT Internal Medicine; ATTEND Internal Medicine
PROC: B2111ZZ Fluoroscopy of Multiple Coronary Arteries using Low Osmolar Contrast (ICD-10-PCS; principal; 2017-02-17)
PROC: 4A023N7 Measurement of Cardiac Sampling and Pressure, Left Heart, Percutaneous Approach (ICD-10-PCS; 2017-02-17)
DX: I13.0 Hypertensive heart and chronic kidney disease with heart failure and stage 1 through stage 4 chronic kidney disease, or unspecified chronic kidney disease (principal); D61.810 Antineoplastic chemotherapy induced pancytopenia; C82.03 Follicular lymphoma grade I, intra-abdominal lymph nodes; E11.22 Type 2 diabetes mellitus with diabetic chronic kidney disease; N18.3 Chronic kidney disease, stage 3 (moderate); I25.82 Chronic total occlusion of coronary artery; I25.110 Atherosclerotic heart disease of native coronary artery with unstable angina pectoris; I50.9 Heart failure, unspecified; G35 Multiple sclerosis; I48.2 Chronic atrial fibrillation; T45.1X5A Adverse effect of antineoplastic and immunosuppressive drugs, initial encounter; I87.8 Other specified disorders of veins; E78.5 Hyperlipidemia, unspecified; M10.9 Gout, unspecified; J45.909 Unspecified asthma, uncomplicated; K21.9 Gastro-esophageal reflux disease without esophagitis; Z79.01 Long term (current) use of anticoagulants; Z86.73 Personal history of transient ischemic attack (TIA), and cerebral infarction without residual deficits; Z88.0 Allergy status to penicillin; Z88.1 Allergy status to other antibiotic agents; Z88.5 Allergy status to narcotic agent; Z88.6 Allergy status to analgesic agent; Z85.820 Personal history of malignant melanoma of skin; Z91.030 Bee allergy status; Z91.018 Allergy to other foods; Z95.0 Presence of cardiac pacemaker; Z95.2 Presence of prosthetic heart valve
CPT/HCPCS: 71010; 80048; 80053; 82550; 82948; 83605; 83735; 83880; 84484; 85025; 85027; 85610; 85730; 86022; 87040; 93005; 93454; 96361; 96367; 96372; 96374; 96375; 96376; 96409; C1769; C1893; G0378; G8987-GP; G8988-GP; J1100; J1200; J1626; J1642; J1644; J1720; J1815; J1940; J2250; J3420; J7030; J7050; J9034; Q9967

== ENCOUNTER 2017-04-19 00:44 | Emergency (ER) | payer OTHER ==
[~2017-04-19] VITALS: Ht 175.3 cm; Wt 105.0 kg
[~2017-04-19 00:44] MED LIST changes: -ACET-822; -FURO40TA PO; +ISOS60TA PO; +NITR1SUB3 SL; -OMEP20TA PO; +OMEP20TA93 PO
[2017-04-19 00:46] VITALS: BP 139/88; PULSE 60; RESP 16; TEMP 98.2; O2SAT 98
[2017-04-19] MEDS ORDERED: SODIUM CHLORIDE 0.9% FLUSH 10 ML FLUSH IV FLUSH PRN (01:15)
[2017-04-19] MEDS ORDERED: ONDANSETRON HCL 4 MG/2 ML VIAL IV PUSH ONE (01:15)
--- NOTE | 2017-04-19 02:00 | PD ---
HPI Chief Complaint: GI Complaint Time Seen by Provider: 00:51 Travel History International Travel<30 days: No Contact w/Intl Traveler<30days: No Traveled to known affect area: No History of Present Illness HPI Patient is a 66-year-old female on chemotherapy for non-Hodgkin's lymphoma presents emergency department for evaluation of some mild nausea without vomiting as well as constipation for the past 4 days ever since her last chemotherapy. Patient's chemotherapy officers Dr. Hyde. Patient also has noticed some bruising on her anterior abdominal wall. She states that her platelet count was in the 100,000 range last lab check a few days ago. She is denying any fevers abdominal pain chest pain shortness of breath. Denies any dysuria. States she just doesn't feel completely well. PFSH Past Medical History Hx Anticoagulant Therapy: Yes Asthma: Yes Depression: Yes Heart Rhythm Problems: Yes (BRADYCARDIA ) Cancer: Yes (skin ca on nose; Non-Hodgkin's lymphoma w/tumor in abdomen ) Cardiovascular Problems: Yes High Cholesterol: Yes Chemotherapy: Yes (currently recieving chemo (02/09)) Chest Pain: Yes Congestive Heart Failure: Yes COPD: Yes Cerebrovascular Accident: Yes (TIA x3 2005) Diabetes: Yes Patient Takes Glucophage: No Diminished Hearing: No Endocrine: Yes Gastrointestinal Disorders: Yes (gerd) GERD: Yes Genitourinary: Yes (HEMATURIA ) Hepatitis: No Hiatal Hernia: No Hypertension: Yes Immune Disorder: No Kidney Stones: Yes Musculoskeletal: Yes (multiple sclerosis) Neurologic: Yes ( multiple sclerosis) Psychiatric: No Respiratory: Yes Immunizations Current: Yes Thyroid Disease: No ?: Not Menopausal: Yes Past Surgical History Abdominal Surgery: Yes ( chocolate cyst removal ) Appendectomy: Yes Cardiac Surgery: Yes (AORTIC VALVE REPLACEMENT 1989, PACEMAKER INSERTION ) Cholecystectomy: Yes Gynecologic Surgery: Yes (left ovary removed, hysterectomy) Hysterectomy: Yes Pacemaker: Yes (Affinity SR Model #[id number]) Valve Replacement: Yes Other Surgery: Yes (PORT PLACED) Social History Alcohol Use: No Tobacco Use: No Substance Use: No Allergies-Medications (Allergen,Severity, Reaction): Coded Allergies: ampicillin (Verified Allergy, Severe, Hives, 04/19/17) aspirin (Verified Allergy, Severe, Hives, 04/19/17) cashew nut (Verified Allergy, Severe, Anaphylaxis, 04/19/17) ciprofloxacin (Verified Allergy, Severe, Hives, 04/19/17) doxycycline (Verified Allergy, Severe, Anaphylaxis, 04/19/17) erythromycin base (Verified Allergy, Severe, Anaphylaxis, 04/19/17) iodine (Verified Allergy, Severe, Shortness of Breath, 04/19/17) minocycline (Verified Allergy, Severe, Anaphylaxis, 04/19/17) morphine (Verified Allergy, Severe, Anaphylaxis, 04/19/17) penicillin G (Verified Allergy, Severe, Hives, 04/19/17) potassium iodide (Verified Allergy, Severe, Shortness of Breath, 04/19/17) povidone-iodine (Verified Allergy, Severe, Shortness of Breath, 04/19/17) sodium iodide (Verified Allergy, Severe, Shortness of Breath, 04/19/17) sodium iodide (Verified Allergy, Severe, Shortness of Breath, 04/19/17) tigecycline (Verified Allergy, Severe, Anaphylaxis, 04/19/17) bee venom protein (honey bee) (Verified Allergy, Unknown, Shortness of Breath, 04/19/17) cephalexin (Verified Allergy, Unknown, Hives, 04/19/17) codeine (Verified Allergy, Unknown, Hives, 04/19/17) diclofenac (Verified Allergy, Unknown, Hives, 04/19/17) etodolac (Verified Allergy, Unknown, Hives, 04/19/17) flurbiprofen (Verified Allergy, Unknown, Hives, 04/19/17) gentamicin (Verified Allergy, Unknown, Hives, 04/19/17) indomethacin (Verified Allergy, Unknown, Hives, 04/19/17) ketoprofen (Verified Allergy, Unknown, Hives, 04/19/17) ketorolac (Verified Allergy, Unknown, Hives, 04/19/17) metronidazole (Verified Allergy, Unknown, Hives, 04/19/17) naproxen (Verified Allergy, Unknown, Hives, 04/19/17) oxaprozin (Verified Allergy, Unknown, Hives, 04/19/17) oxycodone (Verified Allergy, Unknown, Hives, 04/19/17) propoxyphene (Verified Allergy, Unknown, Hives, 04/19/17) Uncoded Allergies: KEFLIN (Allergy, Severe, Hives, 12/16/16) Reported Meds & Prescriptions Reported Meds & Active Scripts Active Isosorbide Mononitrate ER (Isosorbide Mononitrate) 60 Mg Tab 60 Mg PO DAILY@07 Nitroglycerin SL (Nitroglycerin) 0.4 Mg Subl 0.4 Mg SL DIRECTED PRN ONE TABLET UNDER THE TONGUE NEEDED FOR CHEST PAIN, REPEAT EVERY 5 MINS FOR A TOTAL OF 3 DOSES OR CALL 911 IF NO RELIEF Reported Warfarin 6 Mg Tab 12 Mg PO Q4D Ondansetron HCl 4 Mg Tab 4 Mg PO BID Allopurinol 300 Mg Tab 300 Mg PO DAILY Magnesium (Magnesium Oxide) 400 Mg Tablet 1 Tab PO BID Vitamin D3 (Cholecalciferol) 2,000 Unit Cap 2,000 Units PO DAILY Tizanidine (Tizanidine HCl) 4 Mg Tab 4 Mg PO HS Singulair (Montelukast Sodium) 10 Mg Tab 10 Mg PO HS Omeprazole 20 Mg Tab 20 Mg PO BID Metoprolol Tartrate 25 Mg Tab 12.5 Mg PO BID Lovastatin 10 Mg Tab 10 Mg PO 2XWEEK Lasix (Furosemide) 40 Mg Tab 40 Mg PO DAILY Potassium Chloride ER (Potassium Chloride) 20 Meq Tab 20 Meq PO DAILY Cozaar (Losartan Potassium) 25 Mg Tab 25 Mg PO DAILY Warfarin 6 Mg Tab 6 Mg PO DAILY Baclofen 20 Mg Tab 20 Mg PO QID Review of Systems Except as stated in HPI: all other systems reviewed are Neg Physical Exam Narrative GENERAL: [Well-developed well-nourished in no obvious distress. SKIN: Focused skin assessment warm/dry. There are some scattered ecchymosis on the patient's anterior abdominal wall as well as her posterior abdominal wall. No petechial hemorrhaging is seen anywhere else. There is some skin changes consistent with chronic venous stasis of the lower extremities. Otherwise no rash seen. HEAD: Atraumatic. Normocephalic. EYES: Pupils equal and round. No scleral icterus. No injection or drainage. ENT: No nasal bleeding or discharge. Mucous membranes pink and moist. NECK: Trachea midline. No JVD. CARDIOVASCULAR: Regular rate and rhythm. No murmur appreciated. RESPIRATORY: No accessory muscle use. Clear to auscultation. Breath sounds equal bilaterally. GASTROINTESTINAL: Abdomen soft, non-tender, nondistended. Hepatic and splenic margins not palpable. MUSCULOSKELETAL: No obvious deformities. No clubbing. No cyanosis. 2+ pitting edema bilateral lower extremities from mid tibia distally. 2+ bilateral equal pulses in all 4 extremities, pulse motor and sensory intact in all 4 extremity' s.. NEUROLOGICAL: Awake and alert. No obvious cranial nerve deficits. Motor grossly within normal limits. Normal speech. PSYCHIATRIC: Appropriate mood and affect; insight and judgment normal. Data Data Last Documented VS Vital Signs Date Time Temp Pulse Resp B/P (MAP) Pulse Ox O2 Delivery O2 Flow Rate FiO2 04/19/17 05:42 04/19/17 00:46 98.2 60 16 98 Orders Orders Complete Blood Count With Diff (04/19/17 01:01) Comprehensive Metabolic Panel (04/19/17 01:01) Lipase (04/19/17 01:01) Prothrombin Time / Inr (Pt) (04/19/17 01:01) Act Partial Throm Time (Ptt) (04/19/17 01:01) Urinalysis - C+S If Indicated (04/19/17 01:01) Iv Access Insert/Monitor (04/19/17 01:01) Ecg Monitoring (04/19/17 01:01) Oximetry (04/19/17 01:01) Sodium Chloride 0.9% Flush (Ns Flush) (04/19/17 01:15) Ondansetron Inj (Zofran Inj) (04/19/17 01:15) Sodium Chlor 0.9% 1000 Ml Inj (Ns 1000 M (04/19/17 03:30) Ct Abd/Pel W/O Iv Contrast (04/19/17 ) Ed Discharge Order (04/19/17 05:31) Labs Laboratory Tests Test 04/19/17 01:55 White Blood Count 5.0 TH/MM3 Red Blood Count 3.43 MIL/MM3 Hemoglobin 10.1 GM/DL Hematocrit 30.9 % Mean Corpuscular Volume 90.1 FL Mean Corpuscular Hemoglobin 29.4 PG Mean Corpuscular Hemoglobin Concent 32.6 % Red Cell Distribution Width 16.4 % Platelet Count 177 TH/MM3 Mean Platelet Volume 8.9 FL Neutrophils (%) (Auto) 81.7 % Lymphocytes (%) (Auto) 1.2 % Monocytes (%) (Auto) 9.8 % Eosinophils (%) (Auto) 6.2 % Basophils (%) (Auto) 1.1 % Neutrophils # (Auto) 4.1 TH/MM3 Lymphocytes # (Auto) 0.1 TH/MM3 Monocytes # (Auto) 0.5 TH/MM3 Eosinophils # (Auto) 0.3 TH/MM3 Basophils # (Auto) 0.1 TH/MM3 CBC Comment AUTO DIFF Differential Comment AUTO DIFF CONFIRMED Keratocytes OCC Prothrombin Time 43.2 SEC Prothromb Time International Ratio 3.7 RATIO Activated Partial Thromboplast Time 58.3 SEC Urine Color LIGHT-YELLOW Urine Turbidity CLEAR Urine pH 6.0 Urine Specific [place] 1.011 Urine Protein NEG mg/dL Urine Glucose (UA) NEG mg/dL Urine Ketones NEG mg/dL Urine Occult Blood SMALL Urine Nitrite NEG Urine Bilirubin NEG Urine Urobilinogen LESS THAN 2.0 MG/DL Urine Leukocyte Esterase LARGE Urine RBC 1 /hpf Urine WBC 8 /hpf Urine Squamous Epithelial Cells 1 /hpf Urine Bacteria OCC /hpf Microscopic Urinalysis Comment CULT NOT INDICATED Blood Urea Nitrogen 58 MG/DL Creatinine 1.97 MG/DL Random Glucose 140 MG/DL Total Protein 6.3 GM/DL Albumin 3.4 GM/DL Calcium Level 8.8 MG/DL Alkaline Phosphatase 159 U/L Aspartate Amino Transf (AST/SGOT) 27 U/L Alanine Aminotransferase (ALT/SGPT) 23 U/L Total Bilirubin 0.5 MG/DL Sodium Level 137 MEQ/L Potassium Level 3.8 MEQ/L Chloride Level 98 MEQ/L Carbon Dioxide Level 29.7 MEQ/L Anion Gap 9 MEQ/L Estimat Glomerular Filtration Rate 25 ML/MIN Lipase 243 U/L [facility] Medical Decision Making Medical Screen Exam Complete: Yes Emergency Medical Condition: Yes Differential Diagnosis Acute kidney injury, constipation, abdominal pain following chemotherapy, dehydration, lecture led abnormality acute abdomen seems unlikely. Narrative Course Patient roomed in the emergency department, she appears well and in no obvious distress her abdomen is benign. Initial labs do show mild achy I will creatinine 1.9 her baseline seems to be about 1.2-1.4. CAT scan of the abdomen was ordered and the patient does have significant fluid build up in the form of ascites as well as pleural effusions. She states that she did recall this was present before. The patient did state that her doctor recently changed from Lasix to Bumex the cause of this. This may be the cause of her acute kidney injury. A liter of normal saline was started and it was halted when the patient was discovered to be with fluid in her abdomen. I then discussed the patient with Dr. Singh the patient appears quite well and in no distress. She was offered admission to the hospital and we discussed the patient's acute kidney injury with Dr. Singh. At this point the patient may be best served going home and not exposed to any nosocomial infections. Dr. Singh agrees. She will follow up with the oncology Department with her oncologist Dr. Hyde on Friday. She only received about 400 cc of fluid in the emergency department, all of the findings were discussed the patient and she has a good understanding of what is going on with her but still somewhat preoccupied with the possibility of constipation. She has been taking MiraLAX at home and still having very little bowel movement since her last chemotherapy. There is a fair amount of stool in her abdomen I recommended that she had Dulcolax for now. This time she really would like to go home. Discussed return to ED criteria including any shortness of breath should prompt emergent return to the ER. After discussing with Dr. Singh and arranging for short order follow-up if feel comfortable with the patient going home. Diagnosis Primary Impression: SAGE (acute kidney injury) Additional Impression: Lymphoma Referrals: Lane Mayberry MD Disposition: 01 DISCHARGE HOME Condition: Stable Jaycob Alejandro MD Apr 19, 2017 02:00
[2017-04-19 02:14] LABS: AUTOMATED NEUTROPHIL # 4.1 TH/MM3 (1.8-7.7); BASOPHIL # 0.1 TH/MM3 (0-0.2); BASOPHIL % 1.1 % (0.0-2.0); EOSINOPHIL # 0.3 TH/MM3 (0-0.4); EOSINOPHIL % 6.2 % (0.0-4.0); HEMATOCRIT 30.9 % (35.0-46.0); LYMPH % 1.2 % (9.0-44.0); LYMPHOCYTE # 0.1 TH/MM3 (1.0-4.8); MEAN CELL VOLUME 90.1 FL (80.0-100.0); MEAN CORPUSCULAR HEMOGLOBIN 29.4 PG (27.0-34.0); MEAN CORPUSCULAR HGB CONC 32.6 % (32.0-36.0); MONO % 9.8 % (0.0-8.0); NEUT % 81.7 % (16.0-70.0); PLATELET COUNT 177 TH/MM3 (150-450); RED BLOOD COUNT 3.43 MIL/MM3 (4.00-5.30); RED CELL DISTRIBUTION WIDTH 16.4 % (11.6-17.2)
[2017-04-19 02:15] LABS: BACTERIA, URINE OCC /hpf; BLOOD, URINE SMALL (NEG); GLUCOSE,URINE NEG (NEG); KETONE, URINE NEG (NEG); NITRITE,URINE NEG (NEG); SQUAMOUS EPITHELIAL CELL URINE 1 /hpf (0-5); URINE COLOR LIGHT-YELLOW (YELLW/STRAW)
[2017-04-19 02:16] LABS: COMMENT (UR) CULT NOT INDICATED; CULTURE IF INDICATED CULT NOT INDICATED
[2017-04-19 02:22] LABS: HEMO FLAGS AUTO DIFF
[2017-04-19 02:24] LABS: ALT (GPT) 23 U/L (10-53); ANION GAP 9 MEQ/L (5-15); AST (GOT) 27 U/L (15-37); BICARBONATE 29.7 MEQ/L (21.0-32.0); BLOOD UREA NITROGEN 58 MG/DL (7-18); CHLORIDE 98 MEQ/L (98-107); GLOMERULAR FILTRATION RATE 25 ML/MIN (>89); POTASSIUM 3.8 MEQ/L (3.5-5.1); SODIUM (NA) 137 MEQ/L (136-145)
[2017-04-19 02:26] LABS: ALKALINE PHOSPHATASE 159 U/L (45-117); TOTAL BILIRUBIN ADULT 0.5 MG/DL (0.2-1.0)
[2017-04-19 02:31] LABS: APTT (PATIENT) 58.3 SEC (24.3-30.1); INTERNATIONAL NORMALIZED RATIO 3.7 RATIO; PROTHROMBIN TIME - PATIENT 43.2 SEC (9.8-11.6)
[2017-04-19 03:19] LABS: KERATOCYTES OCC (NORMAL); SCAN/DIFF AUTO DIFF CONFIRMED
[2017-04-19] MEDS ORDERED: SODIUM CHLOR 0.9% 1000 ML INJ 1,000 ML IV ONE (03:30)
--- NOTE | 2017-04-19 04:29 | RADRPT ---
EXAM DATE/TIME: 04/19/2017 03:59 [facility] COMPARISON: No previous studies available for comparison. INDICATIONS : Abdominal pain; possible constipation. ORAL CONTRAST: No oral contrast ingested. RADIATION DOSE: 14.88 CTDIvol (mGy) MEDICAL HISTORY : Multiple sclerosis. Gastroesophageal reflux disease. Cardiovascular disease Lymphoma SURGICAL HISTORY : Hysterectomy. Valve replacement ENCOUNTER: Initial ACUITY: 2 days PAIN SCALE: 6/10 LOCATION: abdomen TECHNIQUE: Volumetric scanning of the abdomen and pelvis was performed. Using automated exposure control and ad justment of the mA and/or kV according to patient size, radiation dose was kept as low as reasonably achievable to obtain optimal diagnostic quality images. DICOM format image data is available electro nically for review and comparison. FINDINGS: LOWER LUNGS: There is small bilateral pleural effusions left greater than right. The heart is enlarged with transv enous pacer in place. LIVER: Homogeneous density without lesion. The liver margin is mildly lobular. There is no dilation of the biliary tree. No calcified gallstones. There is a moderate amount of surrounding ascitic fluid throu ghout the upper abdomen. SPLEEN: Normal size without lesion. There are multiple dense calcifications along the medial splenic hilum. PANCREAS: Within normal limits. KIDNEYS: Normal in size and shape. There is no mass or hydronephrosis. There is a nonobstructing 12 mm left r enal calculus. ADRENAL GLANDS: Within normal limits. VASCULAR: There is no aortic aneurysm. BOWEL/MESENTERY: The stomach, small bowel, and colon demonstrate no acute abnormality. There is no free intraperitone al air. There is a moderate amount of ascitic fluid. ABDOMINAL WALL: Within normal limits. RETROPERITONEUM: There is abnormal ill-defined soft tissue density in the retroperitoneum greatest surrounding portion s of the aorta. BLADDER: No wall thickening or mass. REPRODUCTIVE: Within normal limits. INGUINAL: There is no lymphadenopathy or hernia. MUSCULOSKELETAL: Moderate to severe osteopenia and milder degenerative changes. CONCLUSION: 1. Cirrhotic appearing liver with moderate amount of ascitic fluid. 2. Small bilateral pleural effusions left greater than right. 3. Nonobstructing left renal calculus. 4. Abnormal soft tissue density in the retroperitoneum consistent with adenopathy versus scarring. Co mparison with old outside studies would be helpful if any are available. 5. Cardiomegaly. Kris Cruz MD on April 19, 2017 at 4:24 Board Certified Radiologist. This report was verified electronically.
== END 2017-04-19 05:56 | disposition home or self-care (01) ==
LOC: NEPC 00:44
DX: N17.9 Acute kidney failure, unspecified (principal); R11.0 Nausea; N20.0 Calculus of kidney; I51.7 Cardiomegaly; I11.0 Hypertensive heart disease with heart failure; I50.9 Heart failure, unspecified; G35 Multiple sclerosis; K21.9 Gastro-esophageal reflux disease without esophagitis; E11.9 Type 2 diabetes mellitus without complications
CPT/HCPCS: 74176; 80053; 81001; 83690; 85025; 85610; 85730; 96374; 99285; J2405; J7030

== ENCOUNTER 2017-07-11 22:15 | Inpatient (IN) | payer OTHER, MEDICARE ==
[~2017-07-11] VITALS: Ht 175.3 cm; Wt 110.7 kg
[2017-07-11 22:18] VITALS: BP 115/55; PULSE 60; RESP 16; TEMP 98.7; O2SAT 95
[2017-07-11] MEDS ORDERED: VANCOMYCIN INJ 1,000 MG in SODIUM CHLOR 0.9% 250 ML INJ 250 ML IV ONE (22:45)
[2017-07-11 22:46] VITALS: BP 121/59
--- NOTE | 2017-07-11 23:01 | PD ---
HPI Chief Complaint: Cardiac Complaint Time Seen by Provider: 22:32 Travel History International Travel<30 days: No Contact w/Intl Traveler<30days: No Traveled to known affect area: No History of Present Illness HPI Patient is a 67-year-old female with PPM and valve replacement and receiving chemo for lymphoma, Pt is coming in to ER because her blood pressure got very low tonight. She has a pacemaker which is supposed to be set to kick in when her heart drops below 60 . however she tonight felt flushed lying on her couch her heart rate was 56 and her blood pressure was 76/51 ...she repeated it and it still was the same hypotensive and bradycardic and her pacemaker was not kicking in. Her first pacemaker was put in over 15 years ago and she had a change about 7 years ago. Tonight she described a flushed lightheaded feeling while lying on the couch she sat up to try to make it better and then she thought she would fall backwards so she sat right back down on the couch. And then she comes in to the hospital she did not take anything for this hypotensive flushing feeling episode . her pacemaker did not kick in during this episode. She reports that she can feel it when her PPM STARTS IN.. when she arrives to the ER her pressure and heart rate are normal ,, ,she has not had her battery or pacemaker interrogated she says for a very long time... denies jodie chest pain , denies short of breath denies fever vomiting or diarrhea or fluid loss, TO EXPLAIN THESE hypotension episodes PFSH Past Medical History Hx Anticoagulant Therapy: Yes Asthma: Yes Depression: Yes Heart Rhythm Problems: Yes (BRADYCARDIA ) Cancer: Yes (skin ca on nose; Non-Hodgkin's lymphoma w/tumor in abdomen ) Cardiovascular Problems: Yes High Cholesterol: Yes Chemotherapy: Yes (currently recieving chemo (02/09)) Chest Pain: Yes Congestive Heart Failure: Yes COPD: Yes Cerebrovascular Accident: Yes (TIA x3 2005) Diabetes: Yes Patient Takes Glucophage: No Diminished Hearing: No Endocrine: Yes Gastrointestinal Disorders: Yes (gerd) GERD: Yes Genitourinary: Yes (HEMATURIA ) Hepatitis: No Hiatal Hernia: No Hypertension: Yes Immune Disorder: No Kidney Stones: Yes Musculoskeletal: Yes (multiple sclerosis) Neurologic: Yes ( multiple sclerosis) Psychiatric: No Respiratory: Yes Immunizations Current: Yes Thyroid Disease: No Tetanus Vaccination: < 5 Years Influenza Vaccination: Yes Menopausal: Yes Past Surgical History Abdominal Surgery: Yes ( chocolate cyst removal ) Appendectomy: Yes Cardiac Surgery: Yes (AORTIC VALVE REPLACEMENT 1989, PACEMAKER INSERTION ) Cholecystectomy: Yes Gynecologic Surgery: Yes (left ovary removed, hysterectomy) Hysterectomy: Yes Pacemaker: Yes ([employer] SR Model #[id number]) Valve Replacement: Yes Other Surgery: Yes (PORT PLACED) Social History Alcohol Use: No Tobacco Use: No Substance Use: No Allergies-Medications (Allergen,Severity, Reaction): Coded Allergies: ampicillin (Verified Allergy, Severe, Hives, 07/11/17) aspirin (Verified Allergy, Severe, Hives, 07/11/17) cashew nut (Verified Allergy, Severe, Anaphylaxis, 07/11/17) ciprofloxacin (Verified Allergy, Severe, Hives, 07/11/17) doxycycline (Verified Allergy, Severe, Anaphylaxis, 07/11/17) erythromycin base (Verified Allergy, Severe, Anaphylaxis, 07/11/17) iodine (Verified Allergy, Severe, Shortness of Breath, 07/11/17) minocycline (Verified Allergy, Severe, Anaphylaxis, 07/11/17) morphine (Verified Allergy, Severe, Anaphylaxis, 07/11/17) penicillin G (Verified Allergy, Severe, Hives, 07/11/17) potassium iodide (Verified Allergy, Severe, Shortness of Breath, 07/11/17) povidone-iodine (Verified Allergy, Severe, Shortness of Breath, 07/11/17) sodium iodide (Verified Allergy, Severe, Shortness of Breath, 07/11/17) sodium iodide (Verified Allergy, Severe, Shortness of Breath, 07/11/17) tigecycline (Verified Allergy, Severe, Anaphylaxis, 07/11/17) bee venom protein (honey bee) (Verified Allergy, Unknown, Shortness of Breath, 07/11/17) cephalexin (Verified Allergy, Unknown, Hives, 07/11/17) codeine (Verified Allergy, Unknown, Hives, 07/11/17) diclofenac (Verified Allergy, Unknown, Hives, 07/11/17) etodolac (Verified Allergy, Unknown, Hives, 07/11/17) flurbiprofen (Verified Allergy, Unknown, Hives, 07/11/17) gentamicin (Verified Allergy, Unknown, Hives, 07/11/17) indomethacin (Verified Allergy, Unknown, Hives, 07/11/17) ketoprofen (Verified Allergy, Unknown, Hives, 07/11/17) ketorolac (Verified Allergy, Unknown, Hives, 07/11/17) metronidazole (Verified Allergy, Unknown, Hives, 07/11/17) naproxen (Verified Allergy, Unknown, Hives, 07/11/17) oxaprozin (Verified Allergy, Unknown, Hives, 07/11/17) oxycodone (Verified Allergy, Unknown, Hives, 07/11/17) propoxyphene (Verified Allergy, Unknown, Hives, 07/11/17) Uncoded Allergies: KEFLIN (Allergy, Severe, Hives, 12/16/16) Reported Meds & Prescriptions Reported Meds & Active Scripts Active Isosorbide Mononitrate ER (Isosorbide Mononitrate) 60 Mg Tab 60 Mg PO DAILY@07 Nitroglycerin SL (Nitroglycerin) 0.4 Mg Subl 0.4 Mg SL DIRECTED PRN ONE TABLET UNDER THE TONGUE NEEDED FOR CHEST PAIN, REPEAT EVERY 5 MINS FOR A TOTAL OF 3 DOSES OR CALL 911 IF NO RELIEF Reported Warfarin 6 Mg Tab 12 Mg PO Q4D Ondansetron HCl 4 Mg Tab 4 Mg PO BID Allopurinol 300 Mg Tab 300 Mg PO DAILY Magnesium (Magnesium Oxide) 400 Mg Tablet 1 Tab PO BID Vitamin D3 (Cholecalciferol) 2,000 Unit Cap 2,000 Units PO DAILY Tizanidine (Tizanidine HCl) 4 Mg Tab 4 Mg PO HS Singulair (Montelukast Sodium) 10 Mg Tab 10 Mg PO HS Omeprazole 20 Mg Tab 20 Mg PO BID Metoprolol Tartrate 25 Mg Tab 12.5 Mg PO BID Lovastatin 10 Mg Tab 10 Mg PO 2XWEEK Lasix (Furosemide) 40 Mg Tab 40 Mg PO DAILY Potassium Chloride ER (Potassium Chloride) 20 Meq Tab 20 Meq PO DAILY Cozaar (Losartan Potassium) 25 Mg Tab 25 Mg PO DAILY Warfarin 6 Mg Tab 6 Mg PO DAILY Baclofen 20 Mg Tab 20 Mg PO QID Review of Systems Except as stated in HPI: all other systems reviewed are Neg (hypotension flush feeling dizziness and lightheaded) Physical Exam Narrative GENERAL: awake alert vitals are within normal limits, slightly pale appeaarance SKIN: Warm and dry.pale HEAD: Atraumatic. Normocephalic. EYES: Pupils equal and round. No scleral icterus. No injection or drainage. ENT: No nasal bleeding or discharge. Mucous membranes pink and moist. NECK: Trachea midline. No JVD. CARDIOVASCULAR: Regular rate and rhythm. HR 60 bpm RESPIRATORY: No accessory muscle use. Clear to auscultation. Breath sounds equal bilaterally. GASTROINTESTINAL: Abdomen soft, non-tender, nondistended. Hepatic and splenic margins not palpable. MUSCULOSKELETAL: Extremities without clubbing, cyanosis, or edema. No obvious deformities. NEUROLOGICAL: Awake and alert. No obvious cranial nerve deficits. Motor grossly within normal limits. Five out of 5 muscle strength in the arms and legs. Normal speech. PSYCHIATRIC: Appropriate mood and affect; insight and judgment normal. Data Data Last Documented VS Vital Signs Date Time Temp Pulse Resp B/P (MAP) Pulse Ox O2 Delivery O2 Flow Rate FiO2 07/12/17 01:10 59 16 115/69 (84) 97 07/11/17 22:18 98.7 Orders Orders Complete Blood Count With Diff (07/11/17 22:32) Comprehensive Metabolic Panel (07/11/17 22:32) Lipase (07/11/17 22:32) Ckmb (Isoenzyme) Profile (07/11/17 22:32) Troponin I (07/11/17 22:32) Vancomycin Inj (Vancomycin Inj) (07/11/17 22:45) Chest, Pa & Lat (07/11/17 ) D5-1/2 Ns + Kcl 40 Meq Inj (D5-1/2 Ns + (07/12/17 00:00) Electrocardiogram (07/12/17 ) Urinalysis - C+S If Indicated (07/12/17 01:06) Admit Order (Ed Use Only) (07/12/17 01:10) Labs Laboratory Tests Test 07/11/17 23:20 White Blood Count 1.8 TH/MM3 Red Blood Count 3.06 MIL/MM3 Hemoglobin 8.6 GM/DL Hematocrit 25.4 % Mean Corpuscular Volume 83.1 FL Mean Corpuscular Hemoglobin 28.2 PG Mean Corpuscular Hemoglobin Concent 34.0 % Red Cell Distribution Width 18.4 % Platelet Count 115 TH/MM3 Mean Platelet Volume 8.7 FL Neutrophils (%) (Auto) 62.3 % Lymphocytes (%) (Auto) 5.7 % Monocytes (%) (Auto) 25.8 % Eosinophils (%) (Auto) 5.4 % Basophils (%) (Auto) 0.8 % Neutrophils # (Auto) 1.1 TH/MM3 Lymphocytes # (Auto) 0.1 TH/MM3 Monocytes # (Auto) 0.5 TH/MM3 Eosinophils # (Auto) 0.1 TH/MM3 Basophils # (Auto) 0.0 TH/MM3 CBC Comment AUTO DIFF Differential Total Cells Counted 100 Neutrophils % (Manual) 60 % Band Neutrophils % 2 % Lymphocytes % 6 % Monocytes % 17 % Eosinophils % 11 % Basophils % 3 % Neutrophils # (Manual) 1.1 TH/MM3 Metamyelocytes 1 % Differential Comment FINAL DIFF MANUAL Platelet Estimate LOW Platelet Morphology Comment NORMAL Ovalocytes 1+ Blood Urea Nitrogen 48 MG/DL Creatinine 1.69 MG/DL Random Glucose 148 MG/DL Total Protein 5.7 GM/DL Albumin 3.0 GM/DL Calcium Level 8.6 MG/DL Alkaline Phosphatase 179 U/L Aspartate Amino Transf (AST/SGOT) 25 U/L Alanine Aminotransferase (ALT/SGPT) 14 U/L Total Bilirubin 0.4 MG/DL Sodium Level 138 MEQ/L Potassium Level 2.9 MEQ/L Chloride Level 98 MEQ/L Carbon Dioxide Level 30.9 MEQ/L Anion Gap 9 MEQ/L Estimat Glomerular Filtration Rate 30 ML/MIN Total Creatine Kinase 50 U/L Troponin I LESS THAN 0.02 NG/ML Lipase 111 U/L MDM Medical Decision Making Medical Screen Exam Complete: Yes Emergency Medical Condition: Yes Medical Record Reviewed: Yes Interpretation(s) ekg PPM at 60 bpm Differential Diagnosis sepsis vs UTI vs dehydration, PPM failure to sense bradycardia. wire fracture to PPM other Narrative Course PPM interogated in ED reported to be working normal and no episodes recorded of bradycardia per gastroenterology technician reviewed labs and chest xray to evaluate wires of PPM and PNA risk both normal admitted to tele of rn cardiac Diagnosis Primary Impression: Hypotension Qualified Codes: I95.9 - Hypotension, unspecified Additional Impression: Near syncope Admitting Information Admitting Physician Requests: Andrew Nichols MD Jul 11, 2017 23:01
[2017-07-11 23:36] LABS: AUTOMATED NEUTROPHIL # 1.1 TH/MM3 (1.8-7.7); BASOPHIL % 0.8 % (0.0-2.0); EOSINOPHIL # 0.1 TH/MM3 (0-0.4); EOSINOPHIL % 5.4 % (0.0-4.0); HEMATOCRIT 25.4 % (35.0-46.0); HEMOGLOBIN 8.6 GM/DL (11.6-15.3); LYMPH % 5.7 % (9.0-44.0); LYMPHOCYTE # 0.1 TH/MM3 (1.0-4.8); MEAN CELL VOLUME 83.1 FL (80.0-100.0); MEAN CORPUSCULAR HEMOGLOBIN 28.2 PG (27.0-34.0); MEAN PLATELET VOLUME 8.7 FL (7.0-11.0); MONO % 25.8 % (0.0-8.0); MONOCYTE # 0.5 TH/MM3 (0-0.9); NEUT % 62.3 % (16.0-70.0); PLATELET COUNT 115 TH/MM3 (150-450); RED BLOOD COUNT 3.06 MIL/MM3 (4.00-5.30); RED CELL DISTRIBUTION WIDTH 18.4 % (11.6-17.2); WHITE BLOOD COUNT 1.8 TH/MM3 (4.0-11.0)
[2017-07-11 23:49] LABS: ALKALINE PHOSPHATASE 179 U/L (45-117); ALT (GPT) 14 U/L (10-53); AST (GOT) 25 U/L (15-37); BICARBONATE 30.9 MEQ/L (21.0-32.0); BLOOD UREA NITROGEN 48 MG/DL (7-18); CALCIUM 8.6 MG/DL (8.5-10.1); CHLORIDE 98 MEQ/L (98-107); CREATININE 1.69 MG/DL (0.50-1.00); GLOMERULAR FILTRATION RATE 30 ML/MIN (>89); GLUCOSE,RANDOM 148 MG/DL (74-106); SODIUM (NA) 138 MEQ/L (136-145); TOTAL BILIRUBIN ADULT 0.4 MG/DL (0.2-1.0); TOTAL PROTEIN 5.7 GM/DL (6.4-8.2); TROPONIN I LESS THAN 0.02 NG/ML (0.02-0.05)
--- NOTE | 2017-07-11 23:49 | RADRPT ---
EXAM DATE/TIME: 07/11/2017 23:23 [facility] COMPARISON: CHEST SINGLE AP, February 12, 2017, 20:51. INDICATIONS : Pt experiencing low blood pressure and dizziness at home MEDICAL HISTORY : Hypercholesterolemia. Hypertension Diabetes mellitus type II. Skin Cancer, Non-Hodkins lymphoma, COPD, GERD, CHF, CVA, Chemotherapy, Bradycardia SURGICAL HISTORY : Pacemaker. Hysterectomy. Aortic Valve Replacement, Left Oopherectomy, Port Placement ENCOUNTER: Initial ACUITY: 1 day PAIN SCORE: 7/10 LOCATION: Bilateral chest FINDINGS: Right IJ [id number] is present with tip overlapping the expected region of the SVC. There is evide nce for prior median sternotomy. Left subclavian pacer wires are present with tips in the right atriu m and right ventricle. Degenerative changes and hypertrophic changes are seen within the disc space a nd facets of the thoracic spine. Slight cardiomegaly seen. Lungs are clear. Previously seen left pleu ral effusion is no longer seen. CONCLUSION: No acute cardiopulmonary disease. Kamryn Santamaria MD on July 11, 2017 at 23:47 Board Certified Radiologist. This report was verified electronically.
[2017-07-12] VITALS (19 sets, daily range): BP systolic 115–145; BP diastolic 60–74; PULSE 58–80; RESP 16–18; TEMP 96.8–97; O2SAT 95–99
[2017-07-12] MEDS ORDERED: D5-1/2 NS + KCL 40 MEQ INJ 1,000 ML IV SCH
[2017-07-12 00:39] LABS: BANDS 2 % (0-6); BASOPHILS 3 % (0-2); LYMPHOCYTES 6 % (9-44); METAMYELOCYTES 1 % (0-1); MONOCYTES 17 % (0-8); NEUTROPHIL # MANUAL DIFF 1.1 TH/MM3 (1.8-7.7); POLYS (SEG NEUTROPHILS) 60 % (16-70)
[2017-07-12 00:41] LABS: OVALOCYTES 1+ (NORMAL)
[2017-07-12] MEDS ORDERED: SODIUM CHLOR 0.9% 1000 ML INJ 1,000 ML IV SCH (01:24)
[2017-07-12] MEDS ORDERED: LACTULOSE SYRUP 20 GM/30 ML CUP PO PRN (01:30)
[2017-07-12] MEDS ORDERED: ONDANSETRON HCL 4 MG/2 ML VIAL IVP PRN (01:30)
[2017-07-12] MEDS ORDERED: ACETAMINOPHEN 325 MG TAB PO PRN (01:30)
[2017-07-12] MEDS ORDERED: SODIUM CHLORIDE 0.9% FLUSH 10 ML FLUSH IV FLUSH PRN (01:30)
[2017-07-12] MEDS ORDERED: MAGNESIUM HYDROXIDE SUSP 30 ML CUP PO PRN (01:30)
[2017-07-12] MEDS ORDERED: BISACODYL 10 MG SUPP RECTAL PRN (01:30)
[2017-07-12] MEDS ORDERED: SENNOSIDES 8.6 MG TAB PO PRN (01:30)
[2017-07-12] MEDS ORDERED: POTASSIUM CHLORIDE 20 MEQ CONTROLLED RELEASE TAB PO ONE (02:00)
--- NOTE | 2017-07-12 02:03 | HHI.HP ---
HPI Service [facility] Primary Care Physician Chapito Baird MD Admission Diagnosis PPM malfunction Diagnoses: (1) Symptomatic bradycardia Diagnosis: Principal (2) Hypotension Diagnosis: Principal (3) Hypokalemia Diagnosis: Principal (4) Renal insufficiency Diagnosis: Principal (5) History of aortic valve replacement Diagnosis: Principal (6) Follicular lymphoma grade I Diagnosis: Principal Travel History International Travel<30 Days: No Contact w/Intl Traveler <30 Da: No Traveled to Known Affected Are: No History of Present Illness This is a 67-year-old female with a PMH of Depression, Bradycardia, s/p [employer] Pacemaker, H/o AVR, Follicular Lymphoma, CHF (Echo 01/31/17 w/ EF 40-45%), h/ o CVA and Chronic Anticoagulation who presented to the ER w/ complaints of low BP at home of 70/51. States she's been having episodes of low blood pressure for which she's been following w/ her Mix Crusher Operator, Dr. Buitrago. Seen in office approx 2wks ago and states Cozaar discontinued. Tonight, had c/o dizziness, felt "flushed", took her BP and noted low blood pressure and low heart rate in the 50's. Denies chest pain, cough or SOB. On arrival, BP 150/55, HR 60, O2 sat 95% on RA, Afebrile. WBC 1.8. Hemoglobin 8.6. Platelets 1:15, stable in comparison to previous labs from 06/17/17. K+ 2.9. Creatinine 1.69, previously 1.97 I-123 18. Troponin negative. CXR with no acute findings. Review of Systems Except as stated in HPI: all other systems reviewed are Neg ROS: 14 point review of systems otherwise negative. Past Family Social History Past Medical History PMH: Depression, Bradycardia, s/p [employer] Pacemaker, H/o AVR, Follicular Lymphoma, CHF (Echo 01/31/17 w/ EF 40-45%), h/o CVA and Chronic Anticoagulation Past Surgical History PAST SURGICAL HISTORY: Aortic Valve Replacement, Pacemaker, Appendectomy, Left Oophorectomy, Hysterectomy, Cholecystectomy, Port-A-Cath placement Allergies: Coded Allergies: ampicillin (Verified Allergy, Severe, Hives, 07/11/17) aspirin (Verified Allergy, Severe, Hives, 07/11/17) cashew nut (Verified Allergy, Severe, Anaphylaxis, 07/11/17) ciprofloxacin (Verified Allergy, Severe, Hives, 07/11/17) doxycycline (Verified Allergy, Severe, Anaphylaxis, 07/11/17) erythromycin base (Verified Allergy, Severe, Anaphylaxis, 07/11/17) iodine (Verified Allergy, Severe, Shortness of Breath, 07/11/17) minocycline (Verified Allergy, Severe, Anaphylaxis, 07/11/17) morphine (Verified Allergy, Severe, Anaphylaxis, 07/11/17) penicillin G (Verified Allergy, Severe, Hives, 07/11/17) potassium iodide (Verified Allergy, Severe, Shortness of Breath, 07/11/17) povidone-iodine (Verified Allergy, Severe, Shortness of Breath, 07/11/17) sodium iodide (Verified Allergy, Severe, Shortness of Breath, 07/11/17) sodium iodide (Verified Allergy, Severe, Shortness of Breath, 07/11/17) tigecycline (Verified Allergy, Severe, Anaphylaxis, 07/11/17) bee venom protein (honey bee) (Verified Allergy, Unknown, Shortness of Breath, 07/11/17) cephalexin (Verified Allergy, Unknown, Hives, 07/11/17) codeine (Verified Allergy, Unknown, Hives, 07/11/17) diclofenac (Verified Allergy, Unknown, Hives, 07/11/17) etodolac (Verified Allergy, Unknown, Hives, 07/11/17) flurbiprofen (Verified Allergy, Unknown, Hives, 07/11/17) gentamicin (Verified Allergy, Unknown, Hives, 07/11/17) indomethacin (Verified Allergy, Unknown, Hives, 07/11/17) ketoprofen (Verified Allergy, Unknown, Hives, 07/11/17) ketorolac (Verified Allergy, Unknown, Hives, 07/11/17) metronidazole (Verified Allergy, Unknown, Hives, 07/11/17) naproxen (Verified Allergy, Unknown, Hives, 07/11/17) oxaprozin (Verified Allergy, Unknown, Hives, 07/11/17) oxycodone (Verified Allergy, Unknown, Hives, 07/11/17) propoxyphene (Verified Allergy, Unknown, Hives, 07/11/17) Uncoded Allergies: KEFLIN (Allergy, Severe, Hives, 12/16/16) Family History PAST FAMILY HISTORY: Reviewed. No h/o DM or CAD Social History PAST SOCIAL HISTORY: Negative for alcohol, tobacco or drugs. Physical Exam Vital Signs Vital Signs Date Time Temp Pulse Resp B/P (MAP) Pulse Ox O2 Delivery O2 Flow Rate FiO2 07/11/17 22:46 121/59 (79) 07/11/17 22:18 98.7 60 16 115/55 (75) 95 Physical Exam PE: GENERAL: Pleasant middle-aged white female in no acute distress. HEENT: PERRLA, EOMI. No scleral icterus or conjunctival pallor. No lid lag or facial droop. CARDIOVASCULAR: Regular rate and rhythm. No obvious murmurs to auscultation. No chest tenderness to palpation. RESPIRATORY: No obvious rhonchi or wheezing. Clear to auscultation. Breath sounds equal bilaterally. GASTROINTESTINAL: Abdomen soft, non-tender, nondistended. BS normal. MUSCULOSKELETAL: Extremities without clubbing, cyanosis. 2-3+ bilateral pitting edema w/ blistering, skin discoloration, chronic. NEUROLOGICAL: Awake, alert and oriented x4. No focal neurologic deficits. Moving both upper and lower extremities spontaneously. Laboratory Laboratory Tests Test 07/11/17 23:20 White Blood Count 1.8 Red Blood Count 3.06 Hemoglobin 8.6 Hematocrit 25.4 Mean Corpuscular Volume 83.1 Mean Corpuscular Hemoglobin 28.2 Mean Corpuscular Hemoglobin Concent 34.0 Red Cell Distribution Width 18.4 Platelet Count 115 Mean Platelet Volume 8.7 Neutrophils (%) (Auto) 62.3 Lymphocytes (%) (Auto) 5.7 Monocytes (%) (Auto) 25.8 Eosinophils (%) (Auto) 5.4 Basophils (%) (Auto) 0.8 Neutrophils # (Auto) 1.1 Lymphocytes # (Auto) 0.1 Monocytes # (Auto) 0.5 Eosinophils # (Auto) 0.1 Basophils # (Auto) 0.0 CBC Comment AUTO DIFF Differential Total Cells Counted 100 Neutrophils % (Manual) 60 Band Neutrophils % 2 Lymphocytes % 6 Monocytes % 17 Eosinophils % 11 Basophils % 3 Neutrophils # (Manual) 1.1 Metamyelocytes 1 Differential Comment FINAL DIFF MANUAL Platelet Estimate LOW Platelet Morphology Comment NORMAL Ovalocytes 1+ Blood Urea Nitrogen 48 Creatinine 1.69 Random Glucose 148 Total Protein 5.7 Albumin 3.0 Calcium Level 8.6 Alkaline Phosphatase 179 Aspartate Amino Transf (AST/SGOT) 25 Alanine Aminotransferase (ALT/SGPT) 14 Total Bilirubin 0.4 Sodium Level 138 Potassium Level 2.9 Chloride Level 98 Carbon Dioxide Level 30.9 Anion Gap 9 Estimat Glomerular Filtration Rate 30 Total Creatine Kinase 50 Troponin I LESS THAN 0.02 Lipase 111 Result Diagram: 07/11/17231907/11/172319 Caprini VTE Risk Assessment Caprini VTE Risk Assessment: Mod/High Risk (score >= 2) Caprini Risk Assessment Model Point Value = 1 Point Value = 2 Point Value = 3 Point Value = 5 Age 41-60 Minor surgery BMI > 25 kg/m2 Swollen legs Varicose veins or History of unexplained or recurrent spontaneous Oral contraceptives or hormone replacement Sepsis (< 1 month) Serious lung disease, including pneumonia (< 1 month) Abnormal pulmonary function Acute myocardial infarction Congestive heart failure (< 1 month) History of inflammatory bowel disease Medical patient at bed rest Age 61-74 Arthroscopic surgery Major open surgery (> 45 min) Laparoscopic surgery (> 45 min) Malignancy Confined to bed (> 72 hours) Immobilizing plaster cast Central venous access Age >= 75 History of VTE Family history of VTE Factor V Leiden Prothrombin [id number] Lupus anticoagulant Anticardiolipin antibodies Elevated serum homocysteine Heparin-induced thrombocytopenia Other congenital or acquired thrombophilia Stroke (< 1 month) Elective arthroplasty Hip, pelvis, or leg fracture Acute spinal cord injury (< 1 month) Prophylaxis Regimen Total Risk Factor Score Risk Level Prophylaxis Regimen 0-1 Low Early ambulation 2 Moderate Order ONE of the following: *Sequential Compression Device (SCD) *Heparin 5000 units SQ BID 3-4 Higher Order ONE of the following medications: *Heparin 5000 units SQ TID *Enoxaparin/Lovenox 40 mg SQ daily (WT < 150 kg, CrCl > 30 mL/min) *Enoxaparin/Lovenox 30 mg SQ daily (WT < 150 kg, CrCl > 10-29 mL/min) *Enoxaparin/Lovenox 30 mg SQ BID (WT < 150 kg, CrCl > 30 mL/min) AND/OR *Sequential Compression Device (SCD) 5 or more Highest Order ONE of the following medications: *Heparin 5000 units SQ TID (Preferred with Epidurals) *Enoxaparin/Lovenox 40 mg SQ daily (WT < 150 kg, CrCl > 30 mL/min) *Enoxaparin/Lovenox 30 mg SQ daily (WT < 150 kg, CrCl > 10-29 mL/min) *Enoxaparin/Lovenox 30 mg SQ BID (WT < 150 kg, CrCl > 30 mL/min) AND *Sequential Compression Device (SCD) Assessment and Plan Problem List: (1) Symptomatic bradycardia ICD Code: R00.1 - Bradycardia, unspecified (2) Hypotension ICD Code: I95.9 - Hypotension, unspecified (3) Renal insufficiency ICD Code: N28.9 - Disorder of kidney and ureter, unspecified (4) Hypokalemia ICD Code: E87.6 - Hypokalemia (5) Follicular lymphoma grade I ICD Code: C82.00 - Follicular lymphoma grade I, unspecified site (6) History of aortic valve replacement ICD Code: Z95.2 - Presence of prosthetic heart valve Status: Chronic Assessment and Plan A/P: 1. Symptomatic Bradycardia: HR 50's at home w/ c/o dizziness, s/p Pacemaker, concern for malfunction. Interrogate device. Admit to CIC, monitor on telemetry, hold Metoprolol. Echo 01/31/17 w/ EF 40-45%. 2. Hypotension: c/o episodes of hypotension w/ BP at home 70/51, HR 56. Currently BP 115/55, HR 60. H/o CHF, compounded by h/o Follicular Lymphoma w/ liver failure, monitor I/O, hold BP medications for now. Consult Dr. Buitrago for further evaluation/medication adjustment. Hold diuresis, monitor for overload. CXR w/ no acute findings, images reviewed by me. 3. Renal Insufficiency: Chronic. Creatinine 1.69, previously 1.97 on 06/17/17 , monitor I/O, caution w/ diuresis. Repeat labs in am. 4. Hypokalemia: K+ 2.9, give 40mEq, recheck and replace as needed. Check Mg 5. Follicular Lymphoma: Follows w/ Dr. Chew, +pancytopenia, chronic at baseline. Outpatient follow up as scheduled. 6. H/o AVR: on Chronic Anticoagulation, reports taking Coumadin 6mg qd, check INR, resume Coumadin if therapeutic. 7. DVT Prophylaxis: On Coumadin as above. 8. Social work for d/c planning as needed. 9. Case discussed w/ ER physician at length, labs/records/imaging reviewed by me. Yanet Delgado MD Jul 12, 2017 02:03
[2017-07-12 02:19] LABS: INTERNATIONAL NORMALIZED RATIO 2.8 RATIO; PROTHROMBIN TIME - PATIENT 28.2 SEC (9.8-11.6)
[2017-07-12 02:54] LABS: BILIRUBIN, URINE NEG (NEG); BLOOD, URINE NEG (NEG); GLUCOSE,URINE NEG (NEG); KETONE, URINE NEG (NEG); NITRITE,URINE NEG (NEG); PH, URINE 6.5 (5.0-8.5); SQUAMOUS EPITHELIAL CELL URINE 2 /hpf (0-5); URINE COLOR YELLOW (YELLW/STRAW); URINE LEUKOCYTE ESTERASE SMALL (NEG)
[2017-07-12] MEDS: SODIUM CHLORIDE 0.9% FLUSH 10 ML FLUSH IV FLUSH SCH ×2 (08:34→20:09)
[2017-07-12 08:50] LABS: TROPONIN I LESS THAN 0.02 NG/ML (0.02-0.05)
[2017-07-12] MEDS: BACLOFEN 20 MG TAB PO SCH ×4 (09:00→20:08)
[2017-07-12] MEDS: PANTOPRAZOLE SOD 20 MG DELAYED RELEASE TAB PO SCH ×2 (09:36→20:08)
[2017-07-12] MEDS: DOCUSATE SODIUM 50 MG/SENNA 8.6 MG TAB PO SCH ×2 (09:36→20:08)
[2017-07-12] MEDS: ALLOPURINOL 300 MG TAB PO SCH (09:36)
[2017-07-12 13:02] LABS: AUTOMATED NEUTROPHIL # 1.4 TH/MM3 (1.8-7.7); BASOPHIL % 1.5 % (0.0-2.0); EOSINOPHIL # 0.1 TH/MM3 (0-0.4); EOSINOPHIL % 5.5 % (0.0-4.0); HEMATOCRIT 27.4 % (35.0-46.0); HEMOGLOBIN 9.4 GM/DL (11.6-15.3); LYMPH % 4.9 % (9.0-44.0); LYMPHOCYTE # 0.1 TH/MM3 (1.0-4.8); MEAN CELL VOLUME 83.1 FL (80.0-100.0); MEAN CORPUSCULAR HEMOGLOBIN 28.4 PG (27.0-34.0); MEAN CORPUSCULAR HGB CONC 34.2 % (32.0-36.0); MEAN PLATELET VOLUME 8.9 FL (7.0-11.0); MONO % 21.7 % (0.0-8.0); MONOCYTE # 0.4 TH/MM3 (0-0.9); NEUT % 66.4 % (16.0-70.0); PLATELET COUNT 119 TH/MM3 (150-450); RED BLOOD COUNT 3.29 MIL/MM3 (4.00-5.30); RED CELL DISTRIBUTION WIDTH 18.7 % (11.6-17.2)
[2017-07-12 13:40] LABS: ACANTHOCYTES OCC (NORMAL); OVALOCYTES 1+ (NORMAL)
[2017-07-12 14:00] LABS: BICARBONATE 32.8 MEQ/L (21.0-32.0); CALCIUM 8.9 MG/DL (8.5-10.1); CREATININE 1.43 MG/DL (0.50-1.00); MAGNESIUM 2.7 MG/DL (1.5-2.5)
[2017-07-12 14:04] LABS: TROPONIN I 0.02 NG/ML (0.02-0.05)
--- NOTE | 2017-07-12 14:28 | EKG ---
Date Performed: 07/12/2017 Time Performed: 00:41:28 PTAGE: 67 years EKG: ELECTRONIC VENTRICULAR PACEMAKER ABNORMAL RHYTHM ECG Since PREVIOUS TRACING , no significant change noted PREVIOUS TRACIN02/13/2017 03.17 DOCTOR: Guillaume Reese Interpretating Date/Time 07/12/2017 14:26:56
--- NOTE | 2017-07-12 15:04 | MB ---
cc: KELLY ACE M.D. DATE OF CONSULTATION: 07/12/2017. REASON FOR CONSULTATION: Evaluation of decreased blood pressure and decreased heart rate. HISTORY OF PRESENT ILLNESS: Radha Bertrand is a 67-year-old patient followed by my colleague, Dr. Buitrago. The patient has a history of coronary artery disease with a total occlusion of the right coronary artery that is collateralized. This was verified by cath as recently as March. She has a St. Bao aortic valve replacement that has been functioning normally. She has chronic atrial fibrillation. She is undergoing chemotherapy for non-Hodgkin's lymphoma. She has had marked swelling and apparently this is in her abdomen. She has had marked abdominal swelling and lower extremity edema. Her last chemotherapy was this past Friday. Yesterday she woke from up from a nap and was feeling a little short of breath and tried to stand up but could not stand easily. Her used an automatic blood pressure machine and got a low blood pressure and a low heart rate so she came to the hospital. She said she was pale during the episode. She has had normal food intake. She takes Powerade and she also takes diuretics in the form of Furosemide 40 milligrams daily. Here in the hospital, she has had no hypotension documented. Her pacemaker has been checked. It is programmed VVIR at a rate of 60 and there is no evidence for any pacemaker malfunction. The patient denies any angina at the present time. She has a tremendous amount of abdominal swelling. She does have ascites and lower extremity edema. PAST MEDICAL HISTORY: 1. A St. Bao aortic valve replacement in 1989. 2. Chronic atrial fibrillation. 3. Coronary artery disease as described above. 4. Type 2 diabetes. 5. Gastroesophageal reflux. 6. Gout. 7. Hyperlipidemia. 8. Past hypertension, not now. 9. Non-Hodgkin's lymphoma. 10. Multiple sclerosis. 11. St. Bao pacemaker normally functioning. 12. Previous TIAs in 2005. PAST SURGICAL HISTORY: Her past surgical history includes: 1. Mechanical aortic valve replacement. 2. Appendectomy. 3. Cholecystectomy. 4. Hysterectomy. 5. She still has her right ovary but the rest has been removed. 6. A St. Bao pacemaker. 7. Spinal fusion surgery. MEDICATIONS: 1. Warfarin. 2. She was taken off Losartan by Dr. Buitrago. 3. She is on Furosemide 50 milligrams. 4. Potassium 20 milliequivalents. Her potassium is low on this admission, I am not sure why. 5. She is on metoprolol 12.5 twice a day. 6. She is on some other narcotic medications. ALLERGIES: HER ALLERGY LIST IS EXTENSIVE AND WELL-DOCUMENTED IN THE CHART. FAMILY HISTORY: Positive for cancer, congestive heart failure, hypertension, stroke. SOCIAL HISTORY: She has never smoked. She is . REVIEW OF SYSTEMS: Otherwise noncontributory. PHYSICAL EXAMINATION: GENERAL: Physical exam reveals a well-developed, well-nourished female in no acute distress. VITAL SIGNS: Charted. She has had no hypertension since admission here. HEAD, EYES, EARS, NOSE, THROAT: Exam unremarkable. NECK: Exam reveals very easily visible neck veins supine to the angle of the jaw suggesting she not dehydrated. No carotid bruits. CHEST; Clear to auscultation. CARDIAC: Exam shows normal S1, click S2, regular rate and rhythm. 2/6 systolic ejection murmur. No S3. ABDOMEN: Distended suggestive of ascites. EXTREMITIES: Marked venous insufficiency changes, marked edema as well as hemosiderosis changes. NEUROLOGIC: She is alert and oriented. EKGS: EKG shows V-pacing with underlying atrial fibrillation. LABS: Hematocrit is 25.4, white count 1800. INR is 2.8. Creatinine is 1.69, BUN 48, potassium 2.9. IMAGING STUDIES: Chest x-ray shows no acute disease. Her pacemaker has been interrogated. It is set at VVR at 60. There is no evidence for pacemaker malfunction. IMPRESSION This is a complicated 67-year-old female with lymphoma. She appears to have ascites and marked lower extremity edema. Her neck veins are elevated so it goes against the possibility of dehydration. No evidence for ACS , congestive heart failure or coronary ischemia. She may have had a vagal reaction. She may be sequestering fluid in her abdomen causing a drop in blood pressure, it is not clear. Her blood pressure is not stable. I do not have any other specific cardiac advice at this time. It would be worth having oncology see her. She is anemic. She may be having ascites. I do not know the full extent of the intraabdominal process. Pressley E. Jose Cruz, MD VEW/BASIL /11:31 AM /2:35 PM
--- NOTE | 2017-07-12 16:51 | HHI.PR ---
Subjective Remarks feeling tired , little nauseaus d/w cardio we will consult oncology Objective Vitals Vital Signs Date Time Temp Pulse Resp B/P (MAP) Pulse Ox O2 Delivery O2 Flow Rate FiO2 07/12/17 16:00 97.0 60 18 145/69 (94) 99 07/12/17 15:00 62 07/12/17 14:00 70 07/12/17 13:00 72 07/12/17 12:00 96.8 80 16 130/70 (90) 95 07/12/17 12:00 60 07/12/17 11:23 60 07/12/17 10:00 60 07/12/17 09:00 64 07/12/17 07:30 97.0 59 18 137/74 (95) 98 07/12/17 06:34 07/12/17 05:05 60 16 129/60 (83) 98 07/12/17 03:15 60 16 128/70 (89) 98 07/12/17 02:25 60 18 142/69 (93) 96 07/12/17 01:10 59 16 115/69 (84) 97 07/11/17 22:46 121/59 (79) 07/11/17 22:18 98.7 60 16 115/55 (75) 95 Result Diagram: 07/12/17 1200 07/12/17 1200 Objective Remarks GENERAL: This is a well-nourished, well-developed patient, in no apparent distress. CARDIOVASCULAR: Regular rate and rhythm without murmurs, gallops, or rubs. RESPIRATORY: Clear to auscultation. Breath sounds equal bilaterally. No wheezes , rales, or rhonchi. GASTROINTESTINAL: Abdomen soft, mild T w D. Normal active bowel sounds MUSCULOSKELETAL: Extremities , +2 edema NEURO: Alert & Oriented x4 to person, place, time, situation. Moves all ext x4 A/P Problem List: (1) Symptomatic bradycardia ICD Code: R00.1 - Bradycardia, unspecified (2) Hypotension ICD Code: I95.9 - Hypotension, unspecified Status: Acute (3) Renal insufficiency ICD Code: N28.9 - Disorder of kidney and ureter, unspecified (4) Hypokalemia ICD Code: E87.6 - Hypokalemia (5) Follicular lymphoma grade I ICD Code: C82.00 - Follicular lymphoma grade I, unspecified site (6) History of aortic valve replacement ICD Code: Z95.2 - Presence of prosthetic heart valve Status: Chronic Assessment and Plan 07/11:d/w cardio , unlikely abd distenstion due to HF , will consult oncology 1. Symptomatic Bradycardia: HR 50's at home w/ c/o dizziness, s/p Pacemaker, concern for malfunction. Interrogate device. Admit to CIC, monitor on telemetry, hold Metoprolol. Echo 01/31/17 w/ EF 40-45%. 2. Hypotension: c/o episodes of hypotension w/ BP at home 70/51, HR 56. Currently BP 115/55, HR 60. H/o CHF, compounded by h/o Follicular Lymphoma w/ liver failure, monitor I/O, hold BP medications for now. Consult Dr. Buitrago for further evaluation/medication adjustment. Hold diuresis, monitor for overload. CXR w/ no acute findings, images reviewed by me. 3. Renal Insufficiency: Chronic. Creatinine 1.69, previously 1.97 on 06/17/17 , monitor I/O, caution w/ diuresis. Repeat labs in am. 4. Hypokalemia: K+ 2.9, give 40mEq, recheck and replace as needed. Check Mg 5. Follicular Lymphoma: Follows w/ Dr. Mayberry, +pancytopenia, chronic at baseline. Outpatient follow up as scheduled. 6. H/o AVR: on Chronic Anticoagulation, reports taking Coumadin 6mg qd, check INR, resume Coumadin if therapeutic. 7. DVT Prophylaxis: On Coumadin as above. Problem Qualifiers (1) Hypotension: Qualified Codes: I95.9 - Hypotension, unspecified Yvette Dias MD Jul 12, 2017 16:51
[2017-07-12] MEDS: MONTELUKAST SODIUM 10 MG TAB PO SCH (20:08)
[2017-07-12] MEDS: ACETAMINOPHEN/HYDROcodone 325 MG/5 MG TAB PO PRN (22:08)
[2017-07-13] VITALS (26 sets, daily range): BP systolic 122–160; BP diastolic 64–81; PULSE 58–83; RESP 14–20; TEMP 96.1–98.7; O2SAT 96–100
[2017-07-13] MEDS: ACETAMINOPHEN/HYDROcodone 325 MG/10 MG TAB PO PRN ×3 (02:24→20:27)
[2017-07-13] MEDS ORDERED: ALPRAZolam 0.25 MG TAB PO ONE (03:45)
[2017-07-13] MEDS: NITROGLYCERIN 0.4 MG SL 25 TABS/BTL SL PRN (03:56)
[2017-07-13 06:54] LABS: AUTOMATED NEUTROPHIL # 1.6 TH/MM3 (1.8-7.7); BASOPHIL # 0.1 TH/MM3 (0-0.2); BASOPHIL % 2.3 % (0.0-2.0); EOSINOPHIL # 0.1 TH/MM3 (0-0.4); EOSINOPHIL % 4.1 % (0.0-4.0); HEMOGLOBIN 9.2 GM/DL (11.6-15.3); LYMPH % 3.2 % (9.0-44.0); LYMPHOCYTE # 0.1 TH/MM3 (1.0-4.8); MEAN CELL VOLUME 83.7 FL (80.0-100.0); MEAN CORPUSCULAR HEMOGLOBIN 28.7 PG (27.0-34.0); MEAN CORPUSCULAR HGB CONC 34.3 % (32.0-36.0); MEAN PLATELET VOLUME 8.2 FL (7.0-11.0); MONO % 21.7 % (0.0-8.0); MONOCYTE # 0.5 TH/MM3 (0-0.9); NEUT % 68.7 % (16.0-70.0); PLATELET COUNT 120 TH/MM3 (150-450); RED BLOOD COUNT 3.22 MIL/MM3 (4.00-5.30); RED CELL DISTRIBUTION WIDTH 18.8 % (11.6-17.2); WHITE BLOOD COUNT 2.3 TH/MM3 (4.0-11.0)
[2017-07-13 07:25] LABS: ALBUMIN 2.9 GM/DL (3.4-5.0); AST (GOT) 19 U/L (15-37); BICARBONATE 32.4 MEQ/L (21.0-32.0); BLOOD UREA NITROGEN 41 MG/DL (7-18); CHLORIDE 99 MEQ/L (98-107); CREATININE 1.31 MG/DL (0.50-1.00); GLOMERULAR FILTRATION RATE 40 ML/MIN (>89); GLUCOSE,RANDOM 133 MG/DL (74-106); SODIUM (NA) 137 MEQ/L (136-145)
[2017-07-13 07:27] LABS: ALT (GPT) 10 U/L (10-53)
[2017-07-13 07:29] LABS: ALKALINE PHOSPHATASE 144 U/L (45-117); TOTAL BILIRUBIN ADULT 0.6 MG/DL (0.2-1.0); TOTAL PROTEIN 5.7 GM/DL (6.4-8.2)
[2017-07-13] MEDS: DOCUSATE SODIUM 50 MG/SENNA 8.6 MG TAB PO SCH ×2 (10:38→20:20)
[2017-07-13] MEDS: BACLOFEN 20 MG TAB PO SCH ×4 (10:38→20:20)
[2017-07-13] MEDS: SODIUM CHLORIDE 0.9% FLUSH 10 ML FLUSH IV FLUSH SCH ×2 (10:38→20:19)
[2017-07-13] MEDS: ALLOPURINOL 300 MG TAB PO SCH (10:39)
[2017-07-13] MEDS: PANTOPRAZOLE SOD 20 MG DELAYED RELEASE TAB PO SCH ×2 (10:39→20:20)
[2017-07-13 10:40] LABS: OVALOCYTES 1+ (NORMAL)
[2017-07-13] MEDS ORDERED: POTASSIUM CHLORIDE 20 MEQ CONTROLLED RELEASE TAB PO ONE (12:00)
--- NOTE | 2017-07-13 12:10 | PD.CARD.PN ---
Subjective Subjective Remarks Chest tightness last night relieved with 1 NTG Objective Medications Current Medications Medications (Trade) Dose Ordered Sig/Love Route Start Time Stop Time Status Last Admin (NS Flush) 2 ml UNSCH PRN IV FLUSH 07/12/17 01:30 (NS Flush) 2 ml BID IV FLUSH 07/12/17 09:00 07/13/17 10:38 (Zofran Inj) 4 mg Q6H PRN IVP 07/12/17 01:30 (Tylenol) 650 mg Q6H PRN PO 07/12/17 01:30 (Cassidy-Colace) 1 tab BID PO 07/12/17 09:00 07/13/17 10:38 (Milk Of Magnesia Liq) 30 ml Q12H PRN PO 07/12/17 01:30 (Senokot) 17.2 mg Q12H PRN PO 07/12/17 01:30 (Dulcolax Supp) 10 mg DAILY PRN RECTAL 07/12/17 01:30 (Lactulose Liq) 30 ml DAILY PRN PO 07/12/17 01:30 (Zyloprim) 300 mg DAILY PO 07/12/17 09:00 07/13/17 10:39 (Lioresal) 20 mg QID PO 07/12/17 09:00 07/13/17 10:38 (Singulair) 10 mg HS PO 07/12/17 21:00 07/12/17 20:08 (Zanaflex) 4 mg HS PO 07/12/17 21:00 (Protonix) 20 mg BID PO 07/12/17 09:00 07/13/17 10:39 ([place] 10-325 Mg) 1 tab Q4H PRN PO 07/12/17 21:45 07/13/17 02:24 ([place] 5-325 Mg) 1 tab Q4H PRN PO 07/12/17 21:45 07/12/17 22:08 (Nitrostat Sl) 0.4 mg Q5M PRN SL 07/13/17 03:45 07/13/17 03:56 (KCl) 20 meq Q12HR PO 07/13/17 11:45 07/14/17 11:44 (KCl) 40 meq ONCE ONCE PO 07/13/17 12:00 07/13/17 12:01 UNV Vital Signs / I&O Vital Signs Date Time Temp Pulse Resp B/P (MAP) Pulse Ox O2 Delivery O2 Flow Rate FiO2 07/13/17 11:23 97 Room Air 07/13/17 08:13 98.3 60 14 136/71 (92) 97 07/13/17 06:00 63 07/13/17 05:00 62 07/13/17 04:00 98.4 60 18 124/64 (84) 97 07/13/17 04:00 60 07/13/17 04:00 Room Air 07/13/17 03:00 71 07/13/17 02:00 66 07/13/17 01:00 62 07/13/17 00:00 98.0 64 18 122/67 (85) 96 07/13/17 00:00 64 07/13/17 00:00 Room Air 07/12/17 23:00 60 07/12/17 22:00 61 07/12/17 21:00 59 07/12/17 20:00 59 07/12/17 20:00 96.8 59 18 120/65 (83) 97 07/12/17 18:00 72 07/12/17 17:00 62 07/12/17 16:00 58 07/12/17 16:00 97.0 60 18 145/69 (94) 99 07/12/17 15:00 62 07/12/17 14:00 70 07/12/17 13:00 72 I/O 07/12/17 07/12/17 07/12/17 07/13/17 07/13/17 07/13/17 07:00 15:00 23:00 07:00 15:00 23:00 Intake Total 1780 ml 800 ml 240 ml Output Total 1200 ml 1100 ml 350 ml Balance 580 ml -300 ml -110 ml Intake Oral 780 ml 800 ml 240 ml IV Total 1000 ml Output Urine Total 1200 ml 1100 ml 350 ml # Bowel Movements 1 Physical Exam Alert Chest clear CV nl S1 click S2 RRR Abd ? ascites Ext: severe LE edema Laboratory Laboratory Tests Test 07/12/17 13:54 07/13/17 06:20 B-Type Natriuretic Peptide 172 PG/ML White Blood Count 2.3 TH/MM3 Red Blood Count 3.22 MIL/MM3 Hemoglobin 9.2 GM/DL Hematocrit 27.0 % Mean Corpuscular Volume 83.7 FL Mean Corpuscular Hemoglobin 28.7 PG Mean Corpuscular Hemoglobin Concent 34.3 % Red Cell Distribution Width 18.8 % Platelet Count 120 TH/MM3 Mean Platelet Volume 8.2 FL Neutrophils (%) (Auto) 68.7 % Lymphocytes (%) (Auto) 3.2 % Monocytes (%) (Auto) 21.7 % Eosinophils (%) (Auto) 4.1 % Basophils (%) (Auto) 2.3 % Neutrophils # (Auto) 1.6 TH/MM3 Lymphocytes # (Auto) 0.1 TH/MM3 Monocytes # (Auto) 0.5 TH/MM3 Eosinophils # (Auto) 0.1 TH/MM3 Basophils # (Auto) 0.1 TH/MM3 CBC Comment AUTO DIFF Differential Comment AUTO DIFF CONFIRMED Ovalocytes 1+ Prothrombin Time 30.0 SEC Prothromb Time International Ratio 3.0 RATIO Blood Urea Nitrogen 41 MG/DL Creatinine 1.31 MG/DL Random Glucose 133 MG/DL Total Protein 5.7 GM/DL Albumin 2.9 GM/DL Calcium Level 9.0 MG/DL Alkaline Phosphatase 144 U/L Aspartate Amino Transf (AST/SGOT) 19 U/L Alanine Aminotransferase (ALT/SGPT) 10 U/L Total Bilirubin 0.6 MG/DL Sodium Level 137 MEQ/L Potassium Level 3.3 MEQ/L Chloride Level 99 MEQ/L Carbon Dioxide Level 32.4 MEQ/L Anion Gap 6 MEQ/L Estimat Glomerular Filtration Rate 40 ML/MIN Assessment and Plan Problem List: (1) Pacemaker ICD Codes: Z95.0 - Presence of cardiac pacemaker Plan: Normal St. Bao VVI (2) Permanent atrial fibrillation ICD Codes: I48.2 - Chronic atrial fibrillation (3) History of mechanical aortic valve replacement ICD Codes: Z95.2 - Presence of prosthetic heart valve (4) Occlusion of right coronary artery ICD Codes: I24.0 - Acute coronary thrombosis not resulting in myocardial infarction (5) Angina pectoris ICD Codes: I20.9 - Angina pectoris, unspecified Plan: NTG prn Assessment and Plan Dr. Buitrago to F/U tomorrow but nothing else planned from cardiac perspective. If liver biopsy needed by oncology then OK to DC warfarin and bridge with IV heparin Once INR < 2.5. Huan Billingsley MD Jul 13, 2017 12:10
--- NOTE | 2017-07-13 12:34 | MB ---
cc: EDDIE MAYBERRY M.D., KHALIL MD DEVERAS, RUBY ANNE E. M.D. DATE OF CONSULTATION: 07/13/2017. REASON FOR CONSULTATION: Dr. Dias requests a consultation for Mrs. Bertrand regarding follicular lymphoma and ascites. DATE OF : 1950. REFERRING PHYSICIAN: Dr. Dias. HISTORY OF PRESENT ILLNESS: Mrs. Bertrand is a 67-year-old woman well-known patient to my partner, Dr. Eddie Mayberry. She has a history of diabetes, nephrolithiasis, TIA, valvular heart disease, asthma, hypertension, gout and grade 1 follicular lymphoma. She completed three cycles of bendamustine and Rituxan in March of 2017. She had significant improvement in the adenopathy and retroperitoneal adenopathy. She had a mesenteric mass that was no longer present. She has baseline chronic thrombocytopenia. She has heterozygosity for C2A2Y mutation but has no evidence of clinical hemochromatosis. Her ferritin is elevated. She was last seen by Dr. Mayberry and planned to proceed with Rituxan maintenance. Mrs. Bertrand's course was complicated by her coronary artery disease outlined by Dr. Billingsley. She has a St. Bao aortic valve replacement. She has chronic atrial fibrillation. She has a pacemaker with basal rate of 60. Interrogation of the pacemaker so far shows no pacemaker malfunction. Two weeks ago Mrs. Bertrand describes a bradycardic episode that woke her up from sleep. On the day of her presentation, she had a similar episode. She feels pauses and a rapid response of her heart. She had some chest pressure overnight. She was brought in by her . Again, evaluation by cardiology so far reveals no clear cardiac abnormality and for that reason hematology/oncology is consulted regarding her lymphoma. She has had ascites and questionable liver cirrhosis from imaging in March. She was pending a gastroenterology consultation but the referral was delayed. She describes progressive abdominal girth and an increase in leg swelling four years prior to her lymphoma diagnosis. It actually has gotten better since treatment of her lymphoma. She has nodules and cysts of her lower extremities that predate her lymphoma diagnosis. She is not certain of the name of these lesions in her lower extremities. She is on chronic anticoagulant therapy with Coumadin. Her INR is 3.0. She denies any bleeding associated with Coumadin. She appears to have chronic anemia. Her last normal hemoglobin was in November of 2016. She has chronic thrombocytopenia, presumably from the follicular lymphoma. She denies any fevers, chills or night sweats. The rest of her review of systems is negative. PAST MEDICAL HISTORY: 1. Grade 1 follicular lymphoma. 2. Diabetes type 2. 3. Nephrolithiasis. 4. TIA. 5. Atrial fibrillation. 6. Valvular heart disease. 7. Hypertension. 8. Gout. 9. Asthma. PAST SURGICAL HISTORY: 1. Appendectomy. 2. Aortic valve replacement with St. Bao valve in 1986 and 1989. 3. L3-5 fusion. 4. Cataract removal. 5. Cholecystectomy. 6. Pacemaker placement. 7. Resection of melanoma. 8. Right breast lumpectomy, benign in 2011. 9. Tonsillectomy. 10. Tubal ligation. 11. Hysterectomy. FAMILY HISTORY: Both parents are . No reported family history of cancer. SOCIAL HISTORY: She is and lives with her . 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 She never smoked. She is a former drinker. Denies any illicit drug use. ALLERGIES: ALLERGIES TO MULTIPLE MEDICATIONS INCLUDIN. KEFLIN. 2. AMPICILLIN. 3. ASPIRIN. 4. HONEY BEE. 5. CASHEW NUT. 6. CEPHALEXIN. 7. CIPRO. 8. CODEINE. 9. DICLOFENAC. 10. DOXYCYCLINE. 11. ERYTHROMYCIN. 12. GENTAMICIN. 13. INDOMETHACIN. 14. FLURBIPROFEN. 15. ETODOLAC. PHYSICAL EXAMINATION: VITAL SIGNS: Temperature 98.3, heart rate 60, respiratory rate 14, blood pressure 136/71, saturation 97%. GENERAL: Ms. Bertrand is a well-developed well-nourished woman who looks her stated age. HEAD, EYES, EARS, NOSE, THROAT: Her pupils are round and reactive to light and accommodation. Oropharynx is clear. NECK: The neck is supple. No cervical or axillary adenopathy. LUNGS: Clear. CARDIOVASCULAR: Normal rate and rhythm. Rate-controlled. ABDOMEN: Large, distended, fluid-wave appreciated. LOWER EXTREMITIES: Large. She has chronic venous changes. Both legs have multiple cystic nodules. Some of them are confluent. Both lower extremity pulses are identified and strong. NEUROLOGICAL EXAMINATION: Nonfocal. LABS: As described above with pancytopenia. White blood cell count 2.3, hemoglobin 9.2, platelet count 120,000. Potassium is 3.3, potassium on admission was 2.9. Brain natriuretic peptide was 172. BUN of 41, creatinine 1.31. ASSESSMENT AND PLAN: Mrs. Bertrand is a 67-year-old woman with multiple medical problems. She has heart disease, valvular heart disease, which appears to be stable. She is undergoing evaluation by cardiology for her bradycardic events and atypical chest pains. She was found to have hypokalemia. It is not certain if this has anything to do with her event. Her potassium will be replaced orally. Magnesium will be checked. I discussed at length with Mrs. Bertrand that her evaluation with Dr. Mayberry that she appears to be in remission from her lymphoma. She has a grade [address] Mayberry was planning maintenance Rituxan. I have no evidence that there is a recurrence or progression of her lymphoma in the interim. She does have an imaging study that suggests ascites and liver cirrhosis. This may answer as to the nature of her ascites and lower extremity swelling. She reports that her abdominal ascites and swelling have actually improved with the lymphoma treatments. We will consult gastroenterology to image the liver with ultrasound. I defer to gastroenterology for further evaluation and recommendations regarding biopsy. Since we are uncertain as to need a procedure, place her on unfractionated heparin pending gastroenterology consultation. She needs to be on chronic anticoagulant therapy because of her heart valve. Her INR is 3.0 today. Her questions were answered to her satisfaction. Dr. Mayberry will return to resume her care tomorrow. MD MIRYAM Tony/JCC /11:52 AM /12:11 PM KALEN
[2017-07-13] MEDS: HEPARIN-D5W 25,000 U/250 ML 250 ML IV PRN (13:31)
[2017-07-13 13:45] LABS: HEMATOCRIT 28.1 % (35.0-46.0); HEMOGLOBIN 9.4 GM/DL (11.6-15.3); MEAN CELL VOLUME 83.1 FL (80.0-100.0); MEAN CORPUSCULAR HEMOGLOBIN 27.7 PG (27.0-34.0); MEAN CORPUSCULAR HGB CONC 33.4 % (32.0-36.0); MEAN PLATELET VOLUME 8.1 FL (7.0-11.0); PLATELET COUNT 123 TH/MM3 (150-450); RED BLOOD COUNT 3.38 MIL/MM3 (4.00-5.30); RED CELL DISTRIBUTION WIDTH 18.7 % (11.6-17.2); WHITE BLOOD COUNT 2.2 TH/MM3 (4.0-11.0)
[2017-07-13 13:55] LABS: INTERNATIONAL NORMALIZED RATIO 2.6 RATIO; PROTHROMBIN TIME - PATIENT 26.5 SEC (9.8-11.6)
--- NOTE | 2017-07-13 14:54 | PD.CONS ---
HPI History of Present Illness This is a 67 year old female with hx follicular lymphoma s/p chemo, pacemaker, CVA on coumadin who presented with dizziness, chest tightness, SOB and hypotension. GI has been consulted for ascites and cirrhotic liver on CT. Pt has had abd distention since 03/2017 and at that time had CT showign cirrhotic appearing liver. She has also been having BLE edema for the last few years that is worsening. She is complaining of low back pain in the last few weeks that wraps around to the front. She denies voming, etoh, liver problems, ehpatitis, jaundice. She has never had an EGD or colonoscopy. She did chemo for the lymphoma and is now on a maintenance regimen. (Steffi Bundy) PFSH Past Medical History PMH: Depression, Bradycardia, s/p [place] [place] Pacemaker, H/o AVR, Follicular Lymphoma, CHF (Echo 01/31/17 w/ EF 40-45%), h/o CVA and Chronic Anticoagulation Past Surgical History PAST SURGICAL HISTORY: Aortic Valve Replacement, Pacemaker, Appendectomy, Left Oophorectomy, Hysterectomy, Cholecystectomy, Port-A-Cath placement (Steffi Bundy) Coded Allergies: ampicillin (Verified Allergy, Severe, Hives, 07/11/17) aspirin (Verified Allergy, Severe, Hives, 07/11/17) cashew nut (Verified Allergy, Severe, Anaphylaxis, 07/11/17) ciprofloxacin (Verified Allergy, Severe, Hives, 07/11/17) doxycycline (Verified Allergy, Severe, Anaphylaxis, 07/11/17) erythromycin base (Verified Allergy, Severe, Anaphylaxis, 07/11/17) iodine (Verified Allergy, Severe, Shortness of Breath, 07/11/17) minocycline (Verified Allergy, Severe, Anaphylaxis, 07/11/17) morphine (Verified Allergy, Severe, Anaphylaxis, 07/11/17) penicillin G (Verified Allergy, Severe, Hives, 07/11/17) potassium iodide (Verified Allergy, Severe, Shortness of Breath, 07/11/17) povidone-iodine (Verified Allergy, Severe, Shortness of Breath, 07/11/17) sodium iodide (Verified Allergy, Severe, Shortness of Breath, 07/11/17) sodium iodide (Verified Allergy, Severe, Shortness of Breath, 07/11/17) tigecycline (Verified Allergy, Severe, Anaphylaxis, 07/11/17) bee venom protein (honey bee) (Verified Allergy, Unknown, Shortness of Breath, 07/11/17) cephalexin (Verified Allergy, Unknown, Hives, 07/11/17) codeine (Verified Allergy, Unknown, Hives, 07/11/17) diclofenac (Verified Allergy, Unknown, Hives, 07/11/17) etodolac (Verified Allergy, Unknown, Hives, 07/11/17) flurbiprofen (Verified Allergy, Unknown, Hives, 07/11/17) gentamicin (Verified Allergy, Unknown, Hives, 07/11/17) indomethacin (Verified Allergy, Unknown, Hives, 07/11/17) ketoprofen (Verified Allergy, Unknown, Hives, 07/11/17) ketorolac (Verified Allergy, Unknown, Hives, 07/11/17) metronidazole (Verified Allergy, Unknown, Hives, 07/11/17) naproxen (Verified Allergy, Unknown, Hives, 07/11/17) oxaprozin (Verified Allergy, Unknown, Hives, 07/11/17) oxycodone (Verified Allergy, Unknown, Hives, 07/11/17) propoxyphene (Verified Allergy, Unknown, Hives, 07/11/17) Uncoded Allergies: KEFLIN (Allergy, Severe, Hives, 12/16/16) Family History PAST FAMILY HISTORY: Reviewed. No h/o DM or CAD Social History PAST SOCIAL HISTORY: Negative for alcohol, tobacco or drugs. (Steffi Bundy) Review of Systems Constitutional: COMPLAINS OF: Fatigue, DENIES: Fever Endocrine: DENIES: Polydipsia Eyes: DENIES: Blurred vision Ears, nose, mouth, throat: DENIES: Hearing loss Respiratory: DENIES: Cough, Shortness of breath Cardiovascular: DENIES: Chest pain Gastrointestinal: COMPLAINS OF: Abdominal pain, Swelling of Abdomen, DENIES: Nausea, Vomiting Genitourinary: DENIES: Hematuria Musculoskeletal: DENIES: Muscle aches Integumentary: DENIES: Abnormal pigmentation Neurologic: DENIES: Headache Psychiatric: DENIES: Confusion (Steffi Bundy) GI Exam Vitals I&O Vital Signs Date Time Temp Pulse Resp B/P (MAP) Pulse Ox O2 Delivery O2 Flow Rate FiO2 07/13/17 12:16 98.3 62 14 141/75 (97) 100 07/13/17 12:15 60 07/13/17 11:23 97 Room Air 07/13/17 08:13 98.3 60 14 136/71 (92) 97 07/13/17 07:00 60 07/13/17 06:00 63 07/13/17 05:00 62 07/13/17 04:00 98.4 60 18 124/64 (84) 97 07/13/17 04:00 60 07/13/17 04:00 Room Air 07/13/17 03:00 71 07/13/17 02:00 66 07/13/17 01:00 62 07/13/17 00:00 98.0 64 18 122/67 (85) 96 07/13/17 00:00 64 07/13/17 00:00 Room Air 07/12/17 23:00 60 07/12/17 22:00 61 07/12/17 21:00 59 07/12/17 20:00 59 07/12/17 20:00 96.8 59 18 120/65 (83) 97 07/12/17 18:00 72 07/12/17 17:00 62 07/12/17 16:00 58 07/12/17 16:00 97.0 60 18 145/69 (94) 99 07/12/17 15:00 62 I/O 07/12/17 07/12/17 07/12/17 07/13/17 07/13/17 07/13/17 07:00 15:00 23:00 07:00 15:00 23:00 Intake Total 1780 ml 800 ml 240 ml Output Total 1200 ml 1100 ml 350 ml Balance 580 ml -300 ml -110 ml Intake Oral 780 ml 800 ml 240 ml IV Total 1000 ml Output Urine Total 1200 ml 1100 ml 350 ml # Bowel Movements 1 Imaging Last Impressions Chest X-Ray 07/11/17 0000 Signed Impressions: Service Date/Time: Tuesday, July 11, 2017 23:23 - CONCLUSION: No acute cardiopulmonary disease. Kamryn Santamaria MD Laboratory Test 07/13/17 06:20 07/13/17 13:25 White Blood Count 2.3 TH/MM3 2.2 TH/MM3 Red Blood Count 3.22 MIL/MM3 3.38 MIL/MM3 Hemoglobin 9.2 GM/DL 9.4 GM/DL Hematocrit 27.0 % 28.1 % Mean Corpuscular Volume 83.7 FL 83.1 FL Mean Corpuscular Hemoglobin 28.7 PG 27.7 PG Mean Corpuscular Hemoglobin Concent 34.3 % 33.4 % Red Cell Distribution Width 18.8 % 18.7 % Platelet Count 120 TH/MM3 123 TH/MM3 Mean Platelet Volume 8.2 FL 8.1 FL Neutrophils (%) (Auto) 68.7 % Lymphocytes (%) (Auto) 3.2 % Monocytes (%) (Auto) 21.7 % Eosinophils (%) (Auto) 4.1 % Basophils (%) (Auto) 2.3 % Neutrophils # (Auto) 1.6 TH/MM3 Lymphocytes # (Auto) 0.1 TH/MM3 Monocytes # (Auto) 0.5 TH/MM3 Eosinophils # (Auto) 0.1 TH/MM3 Basophils # (Auto) 0.1 TH/MM3 CBC Comment AUTO DIFF Differential Comment AUTO DIFF CONFIRMED Ovalocytes 1+ Prothrombin Time 30.0 SEC 26.5 SEC Prothromb Time International Ratio 3.0 RATIO 2.6 RATIO Blood Urea Nitrogen 41 MG/DL Creatinine 1.31 MG/DL Random Glucose 133 MG/DL Total Protein 5.7 GM/DL Albumin 2.9 GM/DL Calcium Level 9.0 MG/DL Alkaline Phosphatase 144 U/L Aspartate Amino Transf (AST/SGOT) 19 U/L Alanine Aminotransferase (ALT/SGPT) 10 U/L Total Bilirubin 0.6 MG/DL Sodium Level 137 MEQ/L Potassium Level 3.3 MEQ/L Chloride Level 99 MEQ/L Carbon Dioxide Level 32.4 MEQ/L Anion Gap 6 MEQ/L Estimat Glomerular Filtration Rate 40 ML/MIN Activated Partial Thromboplast Time 42.2 SEC Physical Examination HEENT: PERRL; normocephalic; atraumatic; no jaundice. CHEST: CTA CARDIAC: irregular HR ABDOMEN: Soft, distended, nontender; no hepatosplenomegaly; bowel sounds are present in all four quadrants. EXTREMITIES: No clubbing, cyanosis, + BLE edema SKIN: no rash; no jaundice. 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 (Steffi Bundy) Assessment and Plan Plan ASSESSMENT - ascites, abnormal imaging, isolated elevation ALP - unclear etiology. onset ascites 4 months ago, progressing. no significant hx etoh. is currently being bridged with heparin, INR too high currently for paracentesis - anemia - HH stable. microcytic likely multifactorial - hx grade 1 follicular lymphoma oncology following - renal insufficiency, per primary - bradycardia s/p pacemaker, s/p AVR cardiology following PLAN - liver w/u - paracentesis when INR < 1.5 - await abd US - low sodium diet - consider diuretics - echocardiogram if ok with cardiology - further recs as case unfolds pt seen by myself and Dr Bryant and this note is written on her behalf (Steffi Bundy) Physician Comments seen, examined agree with above (Soheila Bryant MD) Steffi Bundy Jul 13, 2017 14:54 Soheila Bryant MD Jul 13, 2017 16:54
--- NOTE | 2017-07-13 15:35 | RADRPT ---
EXAM DATE/TIME: 07/13/2017 14:44 [facility] COMPARISON: No previous studies available for comparison. EXTERNAL COMPARISON : [facility], CT ABDOMEN & PELVIS W/O CONTRAST, March 28, 2017, November 13, 2016, US ABDOMEN COM PLETE, March 03, 2017, PET/CT - TUMOR METABOLISM, December 02, 2016. INDICATIONS : Cirrhosis. Ascites. MEDICAL HISTORY : Multiple sclerosis. Congestive heart failure. Hypercholesterolemia. Bilateral cataracts. TIA. Seizure s. Chest pain. Bradycardia. HTN. Asthma. GERD. Hematuria. Renal calculi. Diabetes. Skin cancer on nos e. Non-Hodgkin's lymphoma. depression. anticoagulant therapy, heparin. SURGICAL HISTORY : Pacemaker. Appendectomy. Cholecystectomy. Aortic valve replacement. Chocolate cyst removal. Left oop herectomy. Hysterectomy. Back surgery. Port placed. Chemotherapy. Blood transfusions. ENCOUNTER: Initial ACUITY: 1 day PAIN SCORE: 7/10 LOCATION: Bilateral upper quadrant MEASUREMENTS: LIVER: 18.9 cm length COMMON DUCT: 4 mm RIGHT KIDNEY: 9.7 x 4.3 x 5.3 cm SPLEEN: 16.4 cm length FINDINGS: Small right pleural effusion LIVER: The liver has a mildly cirrhotic liver with some surrounding ascites. COMMON DUCT: No intraluminal mass or stone visualized. GALLBLADDER: Surgically absent. PANCREAS: The visualized portions are within normal limits. RIGHT KIDNEY: No hydronephrosis, stone or mass. SPLEEN: No focal lesion but it is enlarged.. CONCLUSION: Cirrhosis of liver with some surrounding fluid. The spleen is enlarged. No focal intrahepatic masses identified.. August Acosta MD on July 13, 2017 at 15:33 Board Certified Radiologist. This report was verified electronically.
[2017-07-13] MEDS: POTASSIUM CHLORIDE 20 MEQ CONTROLLED RELEASE TAB PO SCH ×2 (15:50→20:20)
--- NOTE | 2017-07-13 15:50 | EKG ---
Date Performed: 07/13/2017 Time Performed: 03:51:02 PTAGE: 67 years EKG: Demand ventricular pacing Prolonged corrected QT interval Abnormal ECG PREVIOUS TRACING : 07/12/2017 00.41 DOCTOR: Guillaume Reese Interpretating Date/Time 07/13/2017 15:50:15
[2017-07-13] MEDS: MONTELUKAST SODIUM 10 MG TAB PO SCH (20:20)
--- NOTE | 2017-07-13 23:48 | HHI.PR ---
Subjective Remarks No complaint Resting in bed comfortably No nausea vomiting Monitoring INR for paracentesis Objective Vitals Vital Signs Date Time Temp Pulse Resp B/P (MAP) Pulse Ox O2 Delivery O2 Flow Rate FiO2 07/13/17 23:00 62 07/13/17 22:00 61 07/13/17 21:00 62 07/13/17 20:00 96.1 59 20 160/81 (107) 98 07/13/17 20:00 60 07/13/17 20:00 Room Air 07/13/17 17:08 14 07/13/17 17:00 58 07/13/17 16:15 60 07/13/17 15:53 98.7 60 15 131/69 (89) 100 07/13/17 15:00 60 07/13/17 14:00 62 07/13/17 13:00 60 07/13/17 12:16 98.3 62 14 141/75 (97) 100 07/13/17 12:15 60 07/13/17 12:00 60 07/13/17 11:23 97 Room Air 07/13/17 11:00 66 07/13/17 10:00 66 07/13/17 09:00 60 07/13/17 08:13 98.3 60 14 136/71 (92) 97 07/13/17 07:00 60 07/13/17 06:00 63 07/13/17 05:00 62 07/13/17 04:00 98.4 60 18 124/64 (84) 97 07/13/17 04:00 60 07/13/17 04:00 Room Air 07/13/17 03:00 71 07/13/17 02:00 66 07/13/17 01:00 62 07/13/17 00:00 98.0 64 18 122/67 (85) 96 07/13/17 00:00 64 07/13/17 00:00 Room Air I/O 07/13/17 07/13/17 07/13/17 07/14/17 07/14/17 07/14/17 07:00 15:00 23:00 07:00 15:00 23:00 Intake Total 800 ml 240 ml Output Total 1100 ml 350 ml 450 ml Balance -300 ml -110 ml -450 ml Intake Oral 800 ml 240 ml Output Urine Total 1100 ml 350 ml 450 ml # Bowel Movements 1 Result Diagram: 2/18/18 1325 07/13/17 0620 Objective Remarks GENERAL: This is a well-nourished, well-developed patient, in no apparent distress. CARDIOVASCULAR: Regular rate and rhythm 3 out of 6 systolic murmur RESPIRATORY: Clear to auscultation. Breath sounds equal bilaterally. No wheezes , rales, or rhonchi. GASTROINTESTINAL: Abdomen soft, mild T w D. Normal active bowel sounds MUSCULOSKELETAL: Extremities , +2 edema NEURO: Alert & Oriented x4 to person, place, time, situation. Moves all ext x4 Ilex in length volume 6 A/P Problem List: (1) Symptomatic bradycardia ICD Code: R00.1 - Bradycardia, unspecified (2) Hypotension ICD Code: I95.9 - Hypotension, unspecified Status: Acute (3) Renal insufficiency ICD Code: N28.9 - Disorder of kidney and ureter, unspecified (4) Hypokalemia ICD Code: E87.6 - Hypokalemia (5) Follicular lymphoma grade I ICD Code: C82.00 - Follicular lymphoma grade I, unspecified site (6) History of aortic valve replacement ICD Code: Z95.2 - Presence of prosthetic heart valve Status: Chronic Assessment and Plan 07/13: INR is 2.6 today, repeat in a.m., GI following for ascites, paracentesis pending INR correction A/P: 1. Symptomatic Bradycardia: HR 50's at home w/ c/o dizziness, s/p Pacemaker, concern for malfunction. Interrogate device. Admit to CIC, monitor on telemetry, hold Metoprolol. Echo 01/31/17 w/ EF 40-45%. Status post pacer placement the patient had cardiology follow-up 2. Hypotension: c/o episodes of hypotension w/ BP at home 70/51, HR 56. Currently BP 115/55, HR 60. H/o CHF, compounded by h/o Follicular Lymphoma w/ liver failure, monitor I/O, hold BP medications for now. Consult Dr. Buitrago for further evaluation/medication adjustment. Hold diuresis, monitor for overload. CXR w/ no acute findings, images reviewed by me. 3. Renal Insufficiency: Chronic. Creatinine 1.69, previously 1.97 on 06/17/17 , monitor I/O, caution w/ diuresis. Repeat labs in am. 4. Hypokalemia: K+ 2.9, give 40mEq, recheck and replace as needed. Check Mg 5. Follicular Lymphoma: Follows w/ Dr. Mayberry, +pancytopenia, chronic at baseline. Outpatient follow up as scheduled. 6. H/o AVR: on Chronic Anticoagulation, reports taking Coumadin 6mg qd, check INR, resume Coumadin if therapeutic. 7. DVT Prophylaxis: On Coumadin as above. Problem Qualifiers (1) Hypotension: Qualified Codes: I95.9 - Hypotension, unspecified Yvette Dias MD Jul 13, 2017 23:48
[2017-07-14] VITALS (24 sets, daily range): BP systolic 118–140; BP diastolic 62–78; PULSE 39–62; RESP 14–20; TEMP 96.4–98.1; O2SAT 92–97
[2017-07-14 06:53] LABS: AUTOMATED NEUTROPHIL # 1.2 TH/MM3 (1.8-7.7); BASOPHIL # 0.1 TH/MM3 (0-0.2); BASOPHIL % 2.6 % (0.0-2.0); EOSINOPHIL # 0.1 TH/MM3 (0-0.4); EOSINOPHIL % 6.8 % (0.0-4.0); HEMATOCRIT 26.1 % (35.0-46.0); HEMOGLOBIN 8.8 GM/DL (11.6-15.3); LYMPH % 5.8 % (9.0-44.0); LYMPHOCYTE # 0.1 TH/MM3 (1.0-4.8); MEAN CELL VOLUME 82.9 FL (80.0-100.0); MEAN CORPUSCULAR HEMOGLOBIN 27.9 PG (27.0-34.0); MEAN CORPUSCULAR HGB CONC 33.7 % (32.0-36.0); MEAN PLATELET VOLUME 8.2 FL (7.0-11.0); MONO % 23.5 % (0.0-8.0); MONOCYTE # 0.5 TH/MM3 (0-0.9); NEUT % 61.3 % (16.0-70.0); PLATELET COUNT 123 TH/MM3 (150-450); RED BLOOD COUNT 3.15 MIL/MM3 (4.00-5.30); RED CELL DISTRIBUTION WIDTH 18.8 % (11.6-17.2); RETIC # 75.5 MIL/L (20.0-150.0); RETIC % 2.4 % (0.4-3.0)
[2017-07-14 07:20] LABS: ALBUMIN 2.8 GM/DL (3.4-5.0); ALT (GPT) 10 U/L (10-53); AST (GOT) 17 U/L (15-37); BICARBONATE 30.5 MEQ/L (21.0-32.0); BLOOD UREA NITROGEN 34 MG/DL (7-18); CHLORIDE 100 MEQ/L (98-107); CREATININE 1.22 MG/DL (0.50-1.00); GLOMERULAR FILTRATION RATE 44 ML/MIN (>89); GLUCOSE,RANDOM 117 MG/DL (74-106); MAGNESIUM 2.8 MG/DL (1.5-2.5); SODIUM (NA) 138 MEQ/L (136-145)
[2017-07-14 07:21] LABS: IRON (FE) 21 MCG/DL (50-170)
[2017-07-14 07:23] LABS: INTERNATIONAL NORMALIZED RATIO 2.1 RATIO; PROTHROMBIN TIME - PATIENT 21.1 SEC (9.8-11.6)
[2017-07-14 07:31] LABS: % SATURATION IRON PROFILE 7.6 % (20-50); ALKALINE PHOSPHATASE 142 U/L (45-117); FERRITIN 676 NG/ML (8-252); TOTAL BILIRUBIN ADULT 0.6 MG/DL (0.2-1.0); TOTAL IRON BINDING CAPACITY 276 MCG/DL (250-450); TOTAL PROTEIN 5.6 GM/DL (6.4-8.2)
[2017-07-14 08:44] LABS: OVALOCYTES 1+ (NORMAL)
[2017-07-14] MEDS: SODIUM CHLORIDE 0.9% FLUSH 10 ML FLUSH IV FLUSH SCH ×2 (09:00→21:00)
--- NOTE | 2017-07-14 09:27 | PD.CARD.PN ---
Subjective Subjective Remarks Denies CP, dyspnea, dizziness, palpitations. Objective Medications Item Value Date Time Heparin Sodium/ 250 ml @ 18 mls/hr 07/13/17 1215 Dextrose TITRATE PRN/IV 07/13/17 1331 Potassium Chloride 20 meq 07/13/17 1145 (KCl) Q12HR/PO 07/13/17 2020 Current Medications Medications (Trade) Dose Ordered Sig/Love Route Start Time Stop Time Status Last Admin (NS Flush) 2 ml UNSCH PRN IV FLUSH 07/12/17 01:30 (NS Flush) 2 ml BID IV FLUSH 07/12/17 09:00 07/13/17 20:19 (Zofran Inj) 4 mg Q6H PRN IVP 07/12/17 01:30 (Tylenol) 650 mg Q6H PRN PO 07/12/17 01:30 (Cassidy-Colace) 1 tab BID PO 07/12/17 09:00 07/13/17 20:20 (Milk Of Magnesia Liq) 30 ml Q12H PRN PO 07/12/17 01:30 (Senokot) 17.2 mg Q12H PRN PO 07/12/17 01:30 (Dulcolax Supp) 10 mg DAILY PRN RECTAL 07/12/17 01:30 (Lactulose Liq) 30 ml DAILY PRN PO 07/12/17 01:30 (Zyloprim) 300 mg DAILY PO 07/12/17 09:00 07/13/17 10:39 (Lioresal) 20 mg QID PO 07/12/17 09:00 07/13/17 20:20 (Singulair) 10 mg HS PO 07/12/17 21:00 07/13/17 20:20 (Zanaflex) 4 mg HS PO 07/12/17 21:00 (Protonix) 20 mg BID PO 07/12/17 09:00 07/13/17 20:20 ([place] 10-325 Mg) 1 tab Q4H PRN PO 07/12/17 21:45 07/13/17 20:27 ([place] 5-325 Mg) 1 tab Q4H PRN PO 07/12/17 21:45 07/12/17 22:08 (Nitrostat Sl) 0.4 mg Q5M PRN SL 07/13/17 03:45 07/13/17 03:56 (KCl) 20 meq Q12HR PO 07/13/17 11:45 07/14/17 11:44 07/13/17 20:20 Heparin Sodium/ Dextrose 250 ml @ 18 mls/hr TITRATE PRN IV 07/13/17 12:15 07/13/17 13:31 Vital Signs / I&O Vital Signs Date Time Temp Pulse Resp B/P (MAP) Pulse Ox O2 Delivery O2 Flow Rate FiO2 07/14/17 08:28 98.0 60 14 129/72 (91) 92 07/14/17 05:46 61 07/14/17 05:00 62 07/14/17 04:00 60 07/14/17 03:56 Room Air 07/14/17 03:56 97.6 60 18 136/78 (97) 97 07/14/17 03:00 62 07/14/17 02:00 61 07/14/17 01:00 62 07/14/17 00:00 Room Air 07/14/17 00:00 96.4 61 20 137/69 (91) 97 07/14/17 00:00 61 07/13/17 23:00 62 07/13/17 22:00 61 07/13/17 21:00 62 07/13/17 20:00 96.1 59 20 160/81 (107) 98 07/13/17 20:00 60 07/13/17 20:00 Room Air 07/13/17 17:08 14 07/13/17 17:00 58 07/13/17 16:15 60 07/13/17 15:53 98.7 60 15 131/69 (89) 100 07/13/17 15:00 60 07/13/17 14:00 62 07/13/17 13:00 60 07/13/17 12:16 98.3 62 14 141/75 (97) 100 07/13/17 12:15 60 07/13/17 12:00 60 07/13/17 11:23 97 Room Air 07/13/17 11:00 66 07/13/17 10:00 66 I/O 07/13/17 07/13/17 07/13/17 07/14/17 07/14/17 07/14/17 07:00 15:00 23:00 07:00 15:00 23:00 Intake Total 800 ml 240 ml 940 ml Output Total 1100 ml 350 ml 450 ml 950 ml Balance -300 ml -110 ml -450 ml -10 ml Intake Oral 800 ml 240 ml 800 ml IV Total 140 ml Output Urine Total 1100 ml 350 ml 450 ml 950 ml # Bowel Movements 1 0 Physical Exam GENERAL: Well developed, well nourished. No acute distress. HEENT: Jugular venous pressure is normal. CHEST: Lungs clear to auscultation bilaterally. CARDIAC: Regular rate and rhythm without S3, S4. I/ HUONG base. Riley AVR sounds. ABDOMEN: Soft, nontender, no hepatosplenomegaly. Bowel sounds present. EXTREMITIES: No clubbing, cyanosis. 1+ edema. Chronic venous stasis changes. Laboratory Laboratory Tests Test 07/13/17 13:25 07/13/17 22:22 07/14/17 01:44 07/14/17 06:00 White Blood Count 2.2 TH/MM3 2.0 TH/MM3 Red Blood Count 3.38 MIL/MM3 3.15 MIL/MM3 Hemoglobin 9.4 GM/DL 8.8 GM/DL Hematocrit 28.1 % 26.1 % Mean Corpuscular Volume 83.1 FL 82.9 FL Mean Corpuscular Hemoglobin 27.7 PG 27.9 PG Mean Corpuscular Hemoglobin Concent 33.4 % 33.7 % Red Cell Distribution Width 18.7 % 18.8 % Platelet Count 123 TH/MM3 123 TH/MM3 Mean Platelet Volume 8.1 FL 8.2 FL Prothrombin Time 26.5 SEC 21.1 SEC Prothromb Time International Ratio 2.6 RATIO 2.1 RATIO Activated Partial Thromboplast Time 42.2 SEC 185.8 SEC 53.0 SEC 84.2 SEC Neutrophils (%) (Auto) 61.3 % Lymphocytes (%) (Auto) 5.8 % Monocytes (%) (Auto) 23.5 % Eosinophils (%) (Auto) 6.8 % Basophils (%) (Auto) 2.6 % Neutrophils # (Auto) 1.2 TH/MM3 Lymphocytes # (Auto) 0.1 TH/MM3 Monocytes # (Auto) 0.5 TH/MM3 Eosinophils # (Auto) 0.1 TH/MM3 Basophils # (Auto) 0.1 TH/MM3 CBC Comment AUTO DIFF Differential Comment AUTO DIFF CONFIRMED Platelet Estimate LOW Platelet Morphology Comment NORMAL Ovalocytes 1+ Reticulocyte Count 2.4 % Absolute Reticulocyte Count 75.5 MIL/L Blood Urea Nitrogen 34 MG/DL Creatinine 1.22 MG/DL Random Glucose 117 MG/DL Total Protein 5.6 GM/DL Albumin 2.8 GM/DL Calcium Level 9.0 MG/DL Magnesium Level 2.8 MG/DL Alkaline Phosphatase 142 U/L Aspartate Amino Transf (AST/SGOT) 17 U/L Alanine Aminotransferase (ALT/SGPT) 10 U/L Lactate Dehydrogenase 165 U/L Total Bilirubin 0.6 MG/DL Sodium Level 138 MEQ/L Potassium Level 3.9 MEQ/L Chloride Level 100 MEQ/L Carbon Dioxide Level 30.5 MEQ/L Anion Gap 8 MEQ/L Estimat Glomerular Filtration Rate 44 ML/MIN Iron Level 21 MCG/DL Total Iron Binding Capacity 276 MCG/DL Percent Iron Saturation 7.6 % Ferritin 676 NG/ML Tumor Marker Alpha Fetoprotein 1.1 NG/ML Test 07/14/17 07:56 Activated Partial Thromboplast Time 76.6 SEC Assessment and Plan Problem List: (1) Hypotension ICD Codes: I95.9 - Hypotension, unspecified Status: Acute Plan: Stable since admission. Recommend resume her metoprolol, Imdur. Will f/ u as needed. (2) CAD (coronary artery disease) ICD Codes: I25.10 - Atherosclerotic heart disease of jackson coronary artery without angina pectoris Status: Chronic Plan: No further CP. Patient with known occluded but well collateralized RCA on cath 02/17/17. Rec continue medical therapy, resume her Imdur and metoprolol. (3) History of mechanical aortic valve replacement ICD Codes: Z95.2 - Presence of prosthetic heart valve Status: Chronic Plan: Stable exam c/w normal AVR function. Continue heparin bridge while holding warfarin for biopsy. (4) History of cardiac pacemaker ICD Codes: Z95.0 - Presence of cardiac pacemaker Status: Chronic Plan: Stable. No evidence for pacemaker malfunction. (5) Chronic atrial fibrillation ICD Codes: I48.2 - Chronic atrial fibrillation Status: Chronic Plan: Stable, chronic atrial fib. Continue warfarin. Code Status full code Discussed Condition With patient Problem Qualifiers (1) Hypotension: Qualified Codes: I95.9 - Hypotension, unspecified (2) CAD (coronary artery disease): Qualified Codes: I25.118 - Atherosclerotic heart disease of [place] coronary artery with other forms of angina pectoris Iftikhar,Gui H. MD Jul 14, 2017 09:27
[2017-07-14] MEDS ORDERED: PILL SPLITTER OTHER PRN (09:45)
[2017-07-14] MEDS: PANTOPRAZOLE SOD 20 MG DELAYED RELEASE TAB PO SCH ×2 (10:00→21:57)
[2017-07-14] MEDS: BACLOFEN 20 MG TAB PO SCH ×4 (10:00→21:57)
[2017-07-14] MEDS: ALLOPURINOL 300 MG TAB PO SCH (10:00)
[2017-07-14] MEDS: POTASSIUM CHLORIDE 20 MEQ CONTROLLED RELEASE TAB PO SCH (10:01)
[2017-07-14] MEDS: DOCUSATE SODIUM 50 MG/SENNA 8.6 MG TAB PO SCH ×2 (10:01→21:56)
[2017-07-14] MEDS: HEPARIN-D5W 25,000 U/250 ML 250 ML IV PRN (11:13)
--- NOTE | 2017-07-14 11:13 | PD.ONC.PN ---
Subjective Subjective Remarks Afebrile Patient reports she feels like she is having another episode of bradycardia She reports that she feels "foggy" during these episodes Denies chest pain or shortness of breath No bleeding Objective Data Date Time Temp Pulse Resp B/P (MAP) Pulse Ox O2 Delivery O2 Flow Rate FiO2 07/14/17 08:28 98.0 60 14 129/72 (91) 92 07/14/17 08:00 97 Room Air 07/14/17 05:46 61 07/14/17 05:00 62 07/14/17 04:00 60 07/14/17 03:56 Room Air 07/14/17 03:56 97.6 60 18 136/78 (97) 97 07/14/17 03:00 62 07/14/17 02:00 61 07/14/17 01:00 62 07/14/17 00:00 Room Air 07/14/17 00:00 96.4 61 20 137/69 (91) 97 07/14/17 00:00 61 07/13/17 23:00 62 07/13/17 22:00 61 07/13/17 21:00 62 07/13/17 20:00 96.1 59 20 160/81 (107) 98 07/13/17 20:00 60 07/13/17 20:00 Room Air 07/13/17 17:08 14 07/13/17 17:00 58 07/13/17 16:15 60 07/13/17 15:53 98.7 60 15 131/69 (89) 100 07/13/17 15:00 60 07/13/17 14:00 62 07/13/17 13:00 60 07/13/17 12:16 98.3 62 14 141/75 (97) 100 07/13/17 12:15 60 07/13/17 12:00 60 07/13/17 11:23 97 Room Air 07/14/17 07/14/17 07/14/17 07:00 15:00 23:00 Intake Total 940 ml Output Total 950 ml 300 ml Balance -10 ml -300 ml Result Diagram: 07/14/17 0600 07/14/17 0600 Laboratory Results Laboratory Tests Test 07/13/17 13:25 07/13/17 22:22 07/14/17 01:44 07/14/17 06:00 White Blood Count 2.2 TH/MM3 2.0 TH/MM3 Red Blood Count 3.38 MIL/MM3 3.15 MIL/MM3 Hemoglobin 9.4 GM/DL 8.8 GM/DL Hematocrit 28.1 % 26.1 % Mean Corpuscular Volume 83.1 FL 82.9 FL Mean Corpuscular Hemoglobin 27.7 PG 27.9 PG Mean Corpuscular Hemoglobin Concent 33.4 % 33.7 % Red Cell Distribution Width 18.7 % 18.8 % Platelet Count 123 TH/MM3 123 TH/MM3 Mean Platelet Volume 8.1 FL 8.2 FL Prothrombin Time 26.5 SEC 21.1 SEC Prothromb Time International Ratio 2.6 RATIO 2.1 RATIO Activated Partial Thromboplast Time 42.2 SEC 185.8 SEC 53.0 SEC 84.2 SEC Neutrophils (%) (Auto) 61.3 % Lymphocytes (%) (Auto) 5.8 % Monocytes (%) (Auto) 23.5 % Eosinophils (%) (Auto) 6.8 % Basophils (%) (Auto) 2.6 % Neutrophils # (Auto) 1.2 TH/MM3 Lymphocytes # (Auto) 0.1 TH/MM3 Monocytes # (Auto) 0.5 TH/MM3 Eosinophils # (Auto) 0.1 TH/MM3 Basophils # (Auto) 0.1 TH/MM3 CBC Comment AUTO DIFF Differential Comment AUTO DIFF CONFIRMED Platelet Estimate LOW Platelet Morphology Comment NORMAL Ovalocytes 1+ Reticulocyte Count 2.4 % Absolute Reticulocyte Count 75.5 MIL/L Blood Urea Nitrogen 34 MG/DL Creatinine 1.22 MG/DL Random Glucose 117 MG/DL Total Protein 5.6 GM/DL Albumin 2.8 GM/DL Calcium Level 9.0 MG/DL Magnesium Level 2.8 MG/DL Alkaline Phosphatase 142 U/L Aspartate Amino Transf (AST/SGOT) 17 U/L Alanine Aminotransferase (ALT/SGPT) 10 U/L Lactate Dehydrogenase 165 U/L Total Bilirubin 0.6 MG/DL Sodium Level 138 MEQ/L Potassium Level 3.9 MEQ/L Chloride Level 100 MEQ/L Carbon Dioxide Level 30.5 MEQ/L Anion Gap 8 MEQ/L Estimat Glomerular Filtration Rate 44 ML/MIN Iron Level 21 MCG/DL Total Iron Binding Capacity 276 MCG/DL Percent Iron Saturation 7.6 % Ferritin 676 NG/ML Tumor Marker Alpha Fetoprotein 1.1 NG/ML Test 07/14/17 07:56 Activated Partial Thromboplast Time 76.6 SEC Administered Medications Medications (Trade) Dose Ordered Sig/Love Route PRN Reason Start Time Stop Time Status Last Admin Dose Admin Sodium Chloride (NS Flush) 2 ml BID IV FLUSH 07/12/17 09:00 07/13/17 20:19 Senna/Docusate Sodium (Cassidy-Colace) 1 tab BID PO 07/12/17 09:00 07/14/17 10:01 Allopurinol (Zyloprim) 300 mg DAILY PO 07/12/17 09:00 07/14/17 10:00 Baclofen (Lioresal) 20 mg QID PO 07/12/17 09:00 07/14/17 10:00 Montelukast Sodium (Singulair) 10 mg HS PO 07/12/17 21:00 07/13/17 20:20 Pantoprazole Sodium (Protonix) 20 mg BID PO 07/12/17 09:00 07/14/17 10:00 Acetaminophen/ Hydrocodone Bitart ([place] 10-325 Mg) 1 tab Q4H PRN PO pain 6-10 07/12/17 21:45 07/13/17 20:27 Acetaminophen/ Hydrocodone Bitart ([place] 5-325 Mg) 1 tab Q4H PRN PO pain 3-5 07/12/17 21:45 07/12/17 22:08 Nitroglycerin (Nitrostat Sl) 0.4 mg Q5M PRN SL CHEST PAIN 07/13/17 03:45 07/13/17 03:56 Potassium Chloride (KCl) 20 meq Q12HR PO 07/13/17 11:45 07/14/17 11:44 07/14/17 10:01 Heparin Sodium/ Dextrose 250 ml @ 18 mls/hr TITRATE PRN IV Coagulation Management 07/13/17 12:15 07/13/17 13:31 Objective Remarks GENERAL: Older female resting in bed in no obvious distress SKIN: Warm and dry. Pustule-type lesions to bilateral legs. No oozing from lines HEAD: Normocephalic. EYES: No injection or drainage. NECK: Supple, trachea midline. CARDIOVASCULAR: +S1/S2. Heart rate regular and 60s. Significant systolic murmur RESPIRATORY: Clear anteriorly. No accessory muscle use. GASTROINTESTINAL: Abdomen soft, non-tender, nondistended. EXTREMITIES: 3+ edema to bilateral lower extremities NEUROLOGICAL: No obvious focal deficit. Awake, alert, and oriented x3. Assessment/Plan Problem List: (1) Follicular lymphoma grade I ICD Codes: C82.00 - Follicular lymphoma grade I, unspecified site Plan: Hx/Workup: Patient is status post 3 cycles of chemotherapy with bendamustine and Rituxan completed in March 2017. She continues on maintenance Rituxan and had her last dose in clinic last week. Her course was complicated by coronary artery disease requiring a [place] aortic valve replacement. -- No evidence to show that she has a progression of her lymphoma (2) Symptomatic bradycardia ICD Codes: R00.1 - Bradycardia, unspecified Plan: -- Cardiology following -- Interrogation of the pacemaker so far shows no malfunction -- Continues to have periodic episodes of symptomatic bradycardia Assessment 67 y/o female with history of follicular lymphoma admitted for symptomatic bradycardia Plan 1. Monitor CBC 2. Monitor coags 3. Continue heparin drip Attending Statement The exam, history, and the medical decision-making described in the above note were completed with the assistance of the mid-level provider. I reviewed and agree with the findings presented. I attest that I had a [id number] encounter with the patient on the same day, and personally performed and documented my assessment and findings in the medical record. Feeling better. Her symptoms are not due to lymphoma, she appear to be in remission. Continue heparin as she may need liver biopsy. W/u for cirrhosis is ongoing. Jaz Cody Jul 14, 2017 11:13 Lane Mayberry MD Jul 14, 2017 14:39
[2017-07-14 12:30] LABS: HEPATITIS A AB IGM NEGATIVE (NEGATIVE); HEPATITIS B CORE AB IGM NEGATIVE (NEGATIVE); HEPATITIS B SURFACE ANTIGEN NEGATIVE (NEGATIVE); HEPATITIS C AB IgG NEGATIVE (NEGATIVE)
--- NOTE | 2017-07-14 13:44 | HHI.GIFU ---
Subjective Remarks Pt sitting on side of bed. Complaining of continued abdominal swelling. Intermittent abdominal pain, none at time of exam. Some nausea, denies emesis. (Angela Eddy) Objective Vitals I&O Vital Signs Date Time Temp Pulse Resp B/P (MAP) Pulse Ox O2 Delivery O2 Flow Rate FiO2 07/14/17 13:00 60 07/14/17 12:42 39 07/14/17 12:13 60 07/14/17 11:30 98.1 62 16 123/68 (86) 97 07/14/17 11:00 60 07/14/17 10:00 60 07/14/17 09:00 60 07/14/17 08:28 98.0 60 14 129/72 (91) 92 07/14/17 08:00 60 07/14/17 08:00 97 Room Air 07/14/17 07:00 59 07/14/17 05:46 61 07/14/17 05:00 62 07/14/17 04:00 60 07/14/17 03:56 Room Air 07/14/17 03:56 97.6 60 18 136/78 (97) 97 07/14/17 03:00 62 07/14/17 02:00 61 07/14/17 01:00 62 07/14/17 00:00 Room Air 07/14/17 00:00 96.4 61 20 137/69 (91) 97 07/14/17 00:00 61 07/13/17 23:00 62 07/13/17 22:00 61 07/13/17 21:00 62 07/13/17 20:00 96.1 59 20 160/81 (107) 98 07/13/17 20:00 60 07/13/17 20:00 Room Air 07/13/17 17:08 14 07/13/17 17:00 58 07/13/17 16:15 60 07/13/17 15:53 98.7 60 15 131/69 (89) 100 07/13/17 15:00 60 07/13/17 14:00 62 I/O 07/13/17 07/13/17 07/13/17 07/14/17 07/14/17 07/14/17 07:00 15:00 23:00 07:00 15:00 23:00 Intake Total 800 ml 240 ml 940 ml Output Total 1100 ml 350 ml 450 ml 950 ml 300 ml Balance -300 ml -110 ml -450 ml -10 ml -300 ml Intake Oral 800 ml 240 ml 800 ml IV Total 140 ml Output Urine Total 1100 ml 350 ml 450 ml 950 ml 300 ml # Bowel Movements 1 0 Laboratory Laboratory Tests Test 07/13/17 22:22 07/14/17 01:44 07/14/17 06:00 07/14/17 07:56 Activated Partial Thromboplast Time 185.8 53.0 84.2 76.6 White Blood Count 2.0 Red Blood Count 3.15 Hemoglobin 8.8 Hematocrit 26.1 Mean Corpuscular Volume 82.9 Mean Corpuscular Hemoglobin 27.9 Mean Corpuscular Hemoglobin Concent 33.7 Red Cell Distribution Width 18.8 Platelet Count 123 Mean Platelet Volume 8.2 Neutrophils (%) (Auto) 61.3 Lymphocytes (%) (Auto) 5.8 Monocytes (%) (Auto) 23.5 Eosinophils (%) (Auto) 6.8 Basophils (%) (Auto) 2.6 Neutrophils # (Auto) 1.2 Lymphocytes # (Auto) 0.1 Monocytes # (Auto) 0.5 Eosinophils # (Auto) 0.1 Basophils # (Auto) 0.1 CBC Comment AUTO DIFF Differential Comment AUTO DIFF CONFIRMED Platelet Estimate LOW Platelet Morphology Comment NORMAL Ovalocytes 1+ Reticulocyte Count 2.4 Absolute Reticulocyte Count 75.5 Prothrombin Time 21.1 Prothromb Time International Ratio 2.1 Blood Urea Nitrogen 34 Creatinine 1.22 Random Glucose 117 Total Protein 5.6 Albumin 2.8 Calcium Level 9.0 Magnesium Level 2.8 Alkaline Phosphatase 142 Aspartate Amino Transf (AST/SGOT) 17 Alanine Aminotransferase (ALT/SGPT) 10 Lactate Dehydrogenase 165 Total Bilirubin 0.6 Sodium Level 138 Potassium Level 3.9 Chloride Level 100 Carbon Dioxide Level 30.5 Anion Gap 8 Estimat Glomerular Filtration Rate 44 Iron Level 21 Total Iron Binding Capacity 276 Percent Iron Saturation 7.6 Ferritin 676 Tumor Marker Alpha Fetoprotein 1.1 Hepatitis A IgM Antibody NEGATIVE Hepatitis B Surface Antigen NEGATIVE Hepatitis B Core IgM Antibody NEGATIVE Hepatitis C Antibody NEGATIVE Imaging Last Impressions Liver Ultrasound 07/13/17 0000 Signed Impressions: Service Date/Time: Thursday, July 13, 2017 14:44 - CONCLUSION: Cirrhosis of liver with some surrounding fluid. The spleen is enlarged. No focal intrahepatic masses identified.. August A. Sevigny, MD Chest X-Ray 07/11/17 0000 Signed Impressions: Service Date/Time: Tuesday, July 11, 2017 23:23 - CONCLUSION: No acute cardiopulmonary disease. Kamryn Santamaria MD Physical Exam HEENT: Normocephalic; atraumatic CHEST: Even/unlabored CARDIAC: RRR ABDOMEN: Distended, firm, nontender, bowel sounds active EXTREMITIES: BLE edema SKIN: Normal; no rash; no jaundice. [employer]: No focal deficits; alert and oriented times three. (Angela Eddy) Assessment and Plan Plan ASSESSMENT - ascites, abnormal imaging, isolated elevation ALP - unclear etiology. onset ascites 4 months ago, progressing. no significant hx etoh. is currently being bridged with heparin, INR too high currently for paracentesis - anemia - HH stable. microcytic likely multifactorial - hx grade 1 follicular lymphoma oncology following - renal insufficiency, per primary - bradycardia s/p pacemaker, s/p AVR cardiology following (07/14) --> Pt with continued abdominal swelling today. Intermittent pain, none at time of my exam. Some nausea, denies emesis. Liver JUAREZ pending. Paracentesis pending, INR needs to be less than 1.7 for procedure. Coumadin on hold. Pt on Heparin gtt to bridge. Liver US (07/13) noted --> Cirrhosis of liver with some surrounding fluid. Spleen is enlarged. No focal intrahepatic masses identified. Drop in H/H noted today --> 8.8/26.1, no obvious GIB. PLAN - Liver JUAREZ pending - Paracentesis when INR is corrected - Coumadin on hold, cleared by cardiology - Monitor labs - Further recommendations to follow based on results of above Pt has been seen and examined by myself and Dr. Villanueva and this note is written on his behalf (Angela Eddy) Physician Comments Seen and examined with PK, abdomen distended but U/S shows small amount of ascites. CT ordered with PO contrast only. Discussed with radiology. Hold coumadin for now, on Heparin. Paracentesis depending upon ct and pts. INR levels. Discussed with Dr. Dias. (Shawn Villanueva MD) Angela Eddy Jul 14, 2017 13:44 Shawn Villanueva MD Jul 14, 2017 16:18
[2017-07-14 15:59] LABS: ANA SCREEN NEG (NEG)
[2017-07-14] MEDS ORDERED: WARFARIN SOD 6 MG TAB PO SCH ×2 (16:00→20:00)
[2017-07-14] MEDS: ACETAMINOPHEN/HYDROcodone 325 MG/10 MG TAB PO PRN ×2 (16:58→23:07)
[2017-07-14] MEDS: MONTELUKAST SODIUM 10 MG TAB PO SCH (21:57)
[2017-07-14] MEDS: METOPROLOL TARTRATE 25 MG TAB PO SCH (21:58)
--- NOTE | 2017-07-14 22:16 | HHI.PR ---
Subjective Remarks Resting comfortably in bed No event overnight Denied chest and or short of breath No fever or chills Objective Vitals Vital Signs Date Time Temp Pulse Resp B/P (MAP) Pulse Ox O2 Delivery O2 Flow Rate FiO2 07/14/17 20:00 97.4 60 16 138/64 (88) 97 07/14/17 17:47 14 07/14/17 17:00 97.8 60 16 140/72 (94) 95 07/14/17 13:00 60 07/14/17 12:42 39 07/14/17 12:13 60 07/14/17 11:30 98.1 62 16 123/68 (86) 97 07/14/17 11:00 60 07/14/17 10:00 60 07/14/17 09:00 60 07/14/17 08:28 98.0 60 14 129/72 (91) 92 07/14/17 08:00 60 07/14/17 08:00 97 Room Air 07/14/17 07:00 59 07/14/17 05:46 61 07/14/17 05:00 62 07/14/17 04:00 60 07/14/17 03:56 Room Air 07/14/17 03:56 97.6 60 18 136/78 (97) 97 07/14/17 03:00 62 07/14/17 02:00 61 07/14/17 01:00 62 07/14/17 00:00 Room Air 07/14/17 00:00 96.4 61 20 137/69 (91) 97 07/14/17 00:00 61 07/13/17 23:00 62 I/O 07/13/17 07/13/17 07/13/17 07/14/17 07/14/17 07/14/17 07:00 15:00 23:00 07:00 15:00 23:00 Intake Total 800 ml 240 ml 940 ml 93 ml Output Total 1100 ml 350 ml 450 ml 950 ml 300 ml 750 ml Balance -300 ml -110 ml -450 ml -10 ml -300 ml -657 ml Intake Oral 800 ml 240 ml 800 ml IV Total 140 ml 93 ml Output Urine Total 1100 ml 350 ml 450 ml 950 ml 300 ml 750 ml # Bowel Movements 1 0 Result Diagram: 07/14/17 0607/14/17 06 Objective Remarks GENERAL: This is a well-nourished, well-developed patient, in no apparent distress. CARDIOVASCULAR: Regular rate and rhythm 3 out of 6 systolic murmur RESPIRATORY: Clear to auscultation. Breath sounds equal bilaterally. No wheezes , rales, or rhonchi. GASTROINTESTINAL: Abdomen soft, mild T w D. Normal active bowel sounds MUSCULOSKELETAL: Extremities , +2 edema NEURO: Alert & Oriented x4 to person, place, time, situation. Moves all ext x4 Ilex in length volume 6 A/P Problem List: (1) Symptomatic bradycardia ICD Code: R00.1 - Bradycardia, unspecified (2) Hypotension ICD Code: I95.9 - Hypotension, unspecified Status: Acute (3) Renal insufficiency ICD Code: N28.9 - Disorder of kidney and ureter, unspecified (4) Hypokalemia ICD Code: E87.6 - Hypokalemia (5) Follicular lymphoma grade I ICD Code: C82.00 - Follicular lymphoma grade I, unspecified site (6) History of aortic valve replacement ICD Code: Z95.2 - Presence of prosthetic heart valve Status: Chronic Assessment and Plan 07/14: INR still at 2.1, continue heparin drip, repeat INR in a.m. GI recommending less than 1.7 A/P: 1. Symptomatic Bradycardia: HR 50's at home w/ c/o dizziness, s/p Pacemaker, concern for malfunction. Interrogate device. Admit to CIC, monitor on telemetry, hold Metoprolol. Echo 01/31/17 w/ EF 40-45%. Status post pacer placement the patient had cardiology follow-up 2. Hypotension: c/o episodes of hypotension w/ BP at home 70/51, HR 56. Currently BP 115/55, HR 60. H/o CHF, compounded by h/o Follicular Lymphoma w/ liver failure, monitor I/O, hold BP medications for now. Consult Dr. Buitrago for further evaluation/medication adjustment. Hold diuresis, monitor for overload. CXR w/ no acute findings, images reviewed by me. 3. Renal Insufficiency: Chronic. Creatinine 1.69, previously 1.97 on 06/17/17 , monitor I/O, caution w/ diuresis. Repeat labs in am. 4. Hypokalemia: K+ 2.9, give 40mEq, recheck and replace as needed. Check Mg 5. Follicular Lymphoma: Follows w/ Dr. Mayberry, +pancytopenia, chronic at baseline. Outpatient follow up as scheduled. 6. H/o AVR: on Chronic Anticoagulation, reports taking Coumadin 6mg qd, ff INR , resume when done with GI procedure 7. DVT Prophylaxis: On Coumadin as above. Problem Qualifiers (1) Hypotension: Qualified Codes: I95.9 - Hypotension, unspecified Yvette Dias MD Jul 14, 2017 22:16
[2017-07-15] VITALS (23 sets, daily range): BP systolic 121–157; BP diastolic 60–78; PULSE 52–60; RESP 16–20; TEMP 97.8–98.5; O2SAT 96–100
--- NOTE | 2017-07-15 01:51 | RADRPT ---
EXAM DATE/TIME: 07/15/2017 01:36 [facility] COMPARISON: CT ABDOMEN & PELVIS W/O CONTRAST, April 19, 2017, 3:59. INDICATIONS : Cirrhosis. Evaluate for ascites. History of left renal calculus. ORAL CONTRAST: No oral contrast ingested. RADIATION DOSE: 23.46 CTDIvol (mGy) ; Patient body habitus MEDICAL HISTORY : Cardiovascular disease. Cerebrovascular disease. Lymphoma. Seizures Renal stones SURGICAL HISTORY : Pacemaker. Appendectomy. Cholecystectomy .Hysterectomy ENCOUNTER: Initial ACUITY: 1 day PAIN SCALE: 0/10 LOCATION: abdomen TECHNIQUE: Volumetric scanning of the abdomen and pelvis was performed. Using automated exposure control and ad justment of the mA and/or kV according to patient size, radiation dose was kept as low as reasonably achievable to obtain optimal diagnostic quality images. DICOM format image data is available electro nically for review and comparison. FINDINGS: LOWER LUNGS: There is small bilateral pleural effusions. LIVER: Homogeneous density without lesion. The contour of the liver is mildly lobular and there is a moderat e amount of surrounding ascitic fluid which is increased from the prior study. There is no dilation of the biliary tree. No calcified gallstones. SPLEEN: Normal size without lesion. Multiple dense calcifications are noted along the splenic hilar region. T hese are unchanged. PANCREAS: Within normal limits. KIDNEYS: Normal in size and shape. There is no mass or hydronephrosis. Nonobstructing left renal calculus is again noted. ADRENAL GLANDS: Within normal limits. VASCULAR: There is no aortic aneurysm. BOWEL/MESENTERY: The stomach, small bowel, and colon demonstrate no acute abnormality. There is no free intraperitone al air. Moderate amount of ascitic fluid is noted greatest in the pelvis. This extends up both paraco lic gutters. ABDOMINAL WALL: Within normal limits. RETROPERITONEUM: Ill-defined soft tissue density is again noted in the retroperitoneum. This does not appear significa ntly changed. BLADDER: No wall thickening or mass. REPRODUCTIVE: Within normal limits. INGUINAL: There is no lymphadenopathy or hernia. MUSCULOSKELETAL: Within normal limits for patient age. Mild anasarca is again noted in the soft tissues. CONCLUSION: 1. Moderate amount of ascitic fluid is mildly increased from the prior study. 2. Small bilateral pleural effusions are present. 3. Nonobstructing left renal calculus again noted. 4. Abnormal soft tissue density remains in the retroperitoneum not significantly changed. This may re present residual adenopathy versus scarring. Kris Cruz MD on July 15, 2017 at 1:45 Board Certified Radiologist. This report was verified electronically.
[2017-07-15] MEDS: ISOSORBIDE MONONITRATE 60 MG CR TAB (IMDUR) PO SCH (06:27)
[2017-07-15 06:35] LABS: AUTOMATED NEUTROPHIL # 1.2 TH/MM3 (1.8-7.7); BASOPHIL # 0.1 TH/MM3 (0-0.2); EOSINOPHIL # 0.1 TH/MM3 (0-0.4); EOSINOPHIL % 7.3 % (0.0-4.0); HEMATOCRIT 25.6 % (35.0-46.0); HEMOGLOBIN 8.6 GM/DL (11.6-15.3); LYMPH % 5.6 % (9.0-44.0); LYMPHOCYTE # 0.1 TH/MM3 (1.0-4.8); MEAN CELL VOLUME 83.4 FL (80.0-100.0); MEAN CORPUSCULAR HGB CONC 33.6 % (32.0-36.0); MEAN PLATELET VOLUME 8.1 FL (7.0-11.0); MONO % 20.9 % (0.0-8.0); MONOCYTE # 0.4 TH/MM3 (0-0.9); NEUT % 63.2 % (16.0-70.0); PLATELET COUNT 111 TH/MM3 (150-450); RED BLOOD COUNT 3.08 MIL/MM3 (4.00-5.30); RED CELL DISTRIBUTION WIDTH 18.6 % (11.6-17.2); WHITE BLOOD COUNT 1.8 TH/MM3 (4.0-11.0)
[2017-07-15 06:45] LABS: INTERNATIONAL NORMALIZED RATIO 1.6 RATIO
[2017-07-15 08:16] LABS: BANDS 4 % (0-6); BASOPHILS 1 % (0-2); LYMPHOCYTES 2 % (9-44); MONOCYTES 13 % (0-8); NEUTROPHIL # MANUAL DIFF 1.4 TH/MM3 (1.8-7.7); POLYS (SEG NEUTROPHILS) 76 % (16-70)
[2017-07-15] MEDS: SODIUM CHLORIDE 0.9% FLUSH 10 ML FLUSH IV FLUSH SCH ×2 (09:00→21:44)
[2017-07-15] MEDS: PANTOPRAZOLE SOD 20 MG DELAYED RELEASE TAB PO SCH ×2 (09:15→21:42)
[2017-07-15] MEDS: ALLOPURINOL 300 MG TAB PO SCH (09:16)
[2017-07-15] MEDS: BACLOFEN 20 MG TAB PO SCH ×4 (09:16→21:43)
[2017-07-15] MEDS: DOCUSATE SODIUM 50 MG/SENNA 8.6 MG TAB PO SCH ×2 (09:16→21:44)
[2017-07-15] MEDS: METOPROLOL TARTRATE 25 MG TAB PO SCH ×2 (09:17→21:43)
[2017-07-15 11:38] LABS: ALPHA-1-ANTITRYPSIN 213 mg/dL (100 - 190)
[2017-07-15] MEDS: ACETAMINOPHEN/HYDROcodone 325 MG/10 MG TAB PO PRN ×2 (11:42→21:44)
--- NOTE | 2017-07-15 12:38 | PD.ONC.PN ---
Subjective Subjective Remarks Afebrile overnight. Patient resting in room. complaining of tight, large abdomen. denies bleeding. Objective Data Date Time Temp Pulse Resp B/P (MAP) Pulse Ox O2 Delivery O2 Flow Rate FiO2 07/15/17 12:07 60 07/15/17 12:05 60 17 125/60 (81) 100 07/15/17 11:45 60 07/15/17 11:39 98.5 60 20 121/67 (85) 97 07/15/17 10:01 60 07/15/17 09:52 60 07/15/17 09:27 60 07/15/17 08:07 60 07/15/17 08:00 60 07/15/17 08:00 60 16 153/71 (98) 97 07/15/17 07:46 Room Air 96 07/15/17 07:46 98.0 60 20 153/71 (98) 96 07/15/17 07:30 60 07/15/17 06:46 60 07/15/17 06:00 60 07/15/17 05:00 60 07/15/17 04:00 60 07/15/17 03:00 60 07/15/17 03:00 98.1 60 16 130/76 (94) 97 07/15/17 02:00 60 07/15/17 01:00 52 07/15/17 00:19 92 Room Air 07/15/17 00:00 60 07/14/17 23:00 97.4 60 16 118/62 (80) 92 07/14/17 23:00 60 07/14/17 22:00 60 07/14/17 21:00 60 07/14/17 20:00 60 07/14/17 20:00 97.4 60 16 138/64 (88) 97 07/14/17 19:00 60 07/14/17 17:47 14 07/14/17 17:00 97.8 60 16 140/72 (94) 95 07/14/17 13:00 60 07/14/17 12:42 39 07/15/17 07/15/17 07/15/17 07:00 15:00 23:00 Intake Total 1530 ml Output Total 250 ml Balance 1530 ml -250 ml Result Diagram: 07/15/17 0600 07/14/17 0600 Laboratory Results Laboratory Tests Test 07/14/17 17:46 07/15/17 00:56 07/15/17 06:00 Activated Partial Thromboplast Time 52.7 SEC 59.9 SEC 37.3 SEC White Blood Count 1.8 TH/MM3 Red Blood Count 3.08 MIL/MM3 Hemoglobin 8.6 GM/DL Hematocrit 25.6 % Mean Corpuscular Volume 83.4 FL Mean Corpuscular Hemoglobin 28.0 PG Mean Corpuscular Hemoglobin Concent 33.6 % Red Cell Distribution Width 18.6 % Platelet Count 111 TH/MM3 Mean Platelet Volume 8.1 FL Neutrophils (%) (Auto) 63.2 % Lymphocytes (%) (Auto) 5.6 % Monocytes (%) (Auto) 20.9 % Eosinophils (%) (Auto) 7.3 % Basophils (%) (Auto) 3.0 % Neutrophils # (Auto) 1.2 TH/MM3 Lymphocytes # (Auto) 0.1 TH/MM3 Monocytes # (Auto) 0.4 TH/MM3 Eosinophils # (Auto) 0.1 TH/MM3 Basophils # (Auto) 0.1 TH/MM3 CBC Comment AUTO DIFF Differential Total Cells Counted 100 Neutrophils % (Manual) 76 % Band Neutrophils % 4 % Lymphocytes % 2 % Monocytes % 13 % Eosinophils % 4 % Basophils % 1 % Neutrophils # (Manual) 1.4 TH/MM3 Differential Comment FINAL DIFF MANUAL Platelet Estimate LOW Platelet Morphology Comment NORMAL Prothrombin Time 16.0 SEC Prothromb Time International Ratio 1.6 RATIO Imaging Studies Last 24 hours Impressions Abdomen/Pelvis CT 07/15/17 1718 Signed Impressions: Service Date/Time: Saturday, July 15, 2017 01:36 - CONCLUSION: 1. Moderate amount of ascitic fluid is mildly increased from the prior study. 2. Small bilateral pleural effusions are present. 3. Nonobstructing left renal calculus again noted. 4. Abnormal soft tissue density remains in the retroperitoneum not significantly changed. This may represent residual adenopathy versus scarring. Kris Cruz MD Administered Medications Medications (Trade) Dose Ordered Sig/Love Route PRN Reason Start Time Stop Time Status Last Admin Dose Admin Sodium Chloride (NS Flush) 2 ml BID IV FLUSH 07/12/17 09:00 07/13/17 20:19 Senna/Docusate Sodium (Cassidy-Colace) 1 tab BID PO 07/12/17 09:00 07/15/17 09:16 Allopurinol (Zyloprim) 300 mg DAILY PO 07/12/17 09:00 07/15/17 09:16 Baclofen (Lioresal) 20 mg QID PO 07/12/17 09:00 07/15/17 09:16 Montelukast Sodium (Singulair) 10 mg HS PO 07/12/17 21:00 07/14/17 21:57 Tizanidine HCl (Zanaflex) 4 mg HS PO 07/12/17 21:00 07/14/17 21:58 Pantoprazole Sodium (Protonix) 20 mg BID PO 07/12/17 09:00 07/15/17 09:15 Acetaminophen/ Hydrocodone Bitart ([place] 10-325 Mg) 1 tab Q4H PRN PO pain 6-10 07/12/17 21:45 07/15/17 11:42 Acetaminophen/ Hydrocodone Bitart ([place] 5-325 Mg) 1 tab Q4H PRN PO pain 3-5 07/12/17 21:45 07/12/17 22:08 Nitroglycerin (Nitrostat Sl) 0.4 mg Q5M PRN SL CHEST PAIN 07/13/17 03:45 07/13/17 03:56 Heparin Sodium/ Dextrose 250 ml @ 18 mls/hr TITRATE PRN IV Coagulation Management 07/13/17 12:15 07/14/17 11:13 Metoprolol Tartrate (Lopressor) 12.5 mg Q12HR PO 07/14/17 21:00 07/15/17 09:17 Isosorbide Mononitrate (Imdur) 60 mg DAILY@07 PO 07/15/17 07:00 07/15/17 06:27 Objective Remarks GENERAL: Middle aged female, sitting up in bed in nad reading quietly. SKIN: Warm and dry. HEAD: Normocephalic. EYES: No injection or drainage. NECK: Supple, trachea midline. CARDIOVASCULAR: Regular rate and rhythm RESPIRATORY: Breath sounds equal bilaterally. No accessory muscle use. GASTROINTESTINAL: Abdomen distended, tight. EXTREMITIES: No cyanosis NEUROLOGICAL: awake and alert, normal speech. moving all extremities. Assessment/Plan Problem List: (1) Follicular lymphoma grade I ICD Codes: C82.00 - Follicular lymphoma grade I, unspecified site Plan: Hx/Workup: Patient is status post 3 cycles of chemotherapy with bendamustine and Rituxan completed in March 2017. She continues on maintenance Rituxan and had her last dose in clinic last week. Her course was complicated by coronary artery disease requiring a [place] aortic valve replacement. -- No evidence to show that she has a progression of her lymphoma (2) Symptomatic bradycardia ICD Codes: R00.1 - Bradycardia, unspecified Plan: -- Cardiology following -- Interrogation of the pacemaker so far shows no malfunction -- Continues to have periodic episodes of symptomatic bradycardia (3) Ascites ICD Codes: R18.8 - Other ascites Plan: --GI following. --unclear etiology --GI ordered u/s guided paracentesis--has been delayed d/t elevated INR --coumadin was discontinued. Assessment 67 y/o female with history of follicular lymphoma admitted for symptomatic bradycardia h/o atrial fibrillation and valvular heart disease. --received Rituxan 10 days prior to admission. Plan 1. monitor CBC, coags 2. continue heparin gtt. Attending Statement The exam, history, and the medical decision-making described in the above note were completed with the assistance of the mid-level provider. I reviewed and agree with the findings presented. I attest that I had a [id number] encounter with the patient on the same day, and personally performed and documented my assessment and findings in the medical record. Feeling slightly better. LE edema improving. +pancytopenia due to splenomegaly. Await paracentesis. Continue heparin. Yokasta Andrew Jul 15, 2017 12:38 Lane Mayberry MD Jul 15, 2017 13:33
[2017-07-15 13:20] LABS: SMOOTH MUSCLE TOTAL AUTOABS Negative (Negative)
[2017-07-15] MEDS: HEPARIN-D5W 25,000 U/250 ML 250 ML IV PRN (14:00)
--- NOTE | 2017-07-15 14:45 | HHI.GIFU ---
Subjective Remarks Pt on bedside commode at time of my exam Reports continued abdominal distention (+) BM (Angela Eddy) Objective Vitals I&O Vital Signs Date Time Temp Pulse Resp B/P (MAP) Pulse Ox O2 Delivery O2 Flow Rate FiO2 07/15/17 12:07 60 07/15/17 12:05 60 17 125/60 (81) 100 07/15/17 11:45 60 07/15/17 11:39 98.5 60 20 121/67 (85) 97 07/15/17 10:01 60 07/15/17 09:52 60 07/15/17 09:27 60 07/15/17 08:07 60 07/15/17 08:00 60 07/15/17 08:00 60 16 153/71 (98) 97 07/15/17 07:46 Room Air 96 07/15/17 07:46 98.0 60 20 153/71 (98) 96 07/15/17 07:30 60 07/15/17 06:46 60 07/15/17 06:00 60 07/15/17 05:00 60 07/15/17 04:00 60 07/15/17 03:00 60 07/15/17 03:00 98.1 60 16 130/76 (94) 97 07/15/17 02:00 60 07/15/17 01:00 52 07/15/17 00:19 92 Room Air 07/15/17 00:00 60 07/14/17 23:00 97.4 60 16 118/62 (80) 92 07/14/17 23:00 60 07/14/17 22:00 60 07/14/17 21:00 60 07/14/17 20:00 60 07/14/17 20:00 97.4 60 16 138/64 (88) 97 07/14/17 19:00 60 07/14/17 17:47 14 07/14/17 17:00 97.8 60 16 140/72 (94) 95 I/O 07/14/17 07/14/17 07/14/17 07/15/17 07/15/17 07/15/17 07:00 15:00 23:00 07:00 15:00 23:00 Intake Total 940 ml 93 ml 1530 ml 248 ml Output Total 950 ml 300 ml 750 ml 250 ml Balance -10 ml -300 ml -657 ml 1530 ml -2 ml Intake Oral 800 ml 980 ml IV Total 140 ml 93 ml 550 ml 248 ml Output Urine Total 950 ml 300 ml 750 ml 250 ml # Voids 1 # Bowel Movements 0 Laboratory Laboratory Tests Test 07/14/17 17:46 07/15/17 00:56 07/15/17 06:00 Activated Partial Thromboplast Time 52.7 59.9 37.3 White Blood Count 1.8 Red Blood Count 3.08 Hemoglobin 8.6 Hematocrit 25.6 Mean Corpuscular Volume 83.4 Mean Corpuscular Hemoglobin 28.0 Mean Corpuscular Hemoglobin Concent 33.6 Red Cell Distribution Width 18.6 Platelet Count 111 Mean Platelet Volume 8.1 Neutrophils (%) (Auto) 63.2 Lymphocytes (%) (Auto) 5.6 Monocytes (%) (Auto) 20.9 Eosinophils (%) (Auto) 7.3 Basophils (%) (Auto) 3.0 Neutrophils # (Auto) 1.2 Lymphocytes # (Auto) 0.1 Monocytes # (Auto) 0.4 Eosinophils # (Auto) 0.1 Basophils # (Auto) 0.1 CBC Comment AUTO DIFF Differential Total Cells Counted 100 Neutrophils % (Manual) 76 Band Neutrophils % 4 Lymphocytes % 2 Monocytes % 13 Eosinophils % 4 Basophils % 1 Neutrophils # (Manual) 1.4 Differential Comment FINAL DIFF MANUAL Platelet Estimate LOW Platelet Morphology Comment NORMAL Prothrombin Time 16.0 Prothromb Time International Ratio 1.6 Imaging Last Impressions Abdomen/Pelvis CT 07/15/17 1718 Signed Impressions: Service Date/Time: Saturday, July 15, 2017 01:36 - CONCLUSION: 1. Moderate amount of ascitic fluid is mildly increased from the prior study. 2. Small bilateral pleural effusions are present. 3. Nonobstructing left renal calculus again noted. 4. Abnormal soft tissue density remains in the retroperitoneum not significantly changed. This may represent residual adenopathy versus scarring. Kris Cruz MD Liver Ultrasound 07/13/17 0000 Signed Impressions: Service Date/Time: Thursday, July 13, 2017 14:44 - CONCLUSION: Cirrhosis of liver with some surrounding fluid. The spleen is enlarged. No focal intrahepatic masses identified.. August Acosta MD Chest X-Ray 07/11/17 0000 Signed Impressions: Service Date/Time: Tuesday, July 11, 2017 23:23 - CONCLUSION: No acute cardiopulmonary disease. Kamryn Santamaria MD Physical Exam HEENT: Normocephalic; atraumatic CHEST: Even/unlabored CARDIAC: RRR ABDOMEN: Distended, firm, nontender, bowel sounds active EXTREMITIES: BLE edema SKIN: Normal; no rash; no jaundice. [employer] PL[employer] WORKER: No focal deficits; alert and oriented times three. (Angela Eddy) Assessment and Plan Plan ASSESSMENT - ascites, abnormal imaging, isolated elevation ALP - unclear etiology. onset ascites 4 months ago, progressing. no significant hx etoh. is currently being bridged with heparin, INR too high currently for paracentesis - anemia - HH stable. microcytic likely multifactorial - hx grade 1 follicular lymphoma oncology following - renal insufficiency, per primary - bradycardia s/p pacemaker, s/p AVR cardiology following (07/14) --> Pt with continued abdominal swelling today. Intermittent pain, none at time of my exam. Some nausea, denies emesis. Liver JUAREZ pending. Paracentesis pending, INR needs to be less than 1.7 for procedure. Coumadin on hold. Pt on Heparin gtt to bridge. Liver US (07/13) noted --> Cirrhosis of liver with some surrounding fluid. Spleen is enlarged. No focal intrahepatic masses identified. Drop in H/H noted today --> 8.8/26.1, no obvious GIB. (07/15) --> S/P CT abdomen and pelvis yesterday --> Moderate amount of ascitic fluid is mildly increased from the prior study. Abnormal soft tissue density remains in the retroperitoneum not significantly changes. This may represent residual adenopathy vs scarring. INR now 1.6. Hepatitis panel negative. GERMAN and ASMA negative. AMA pending. Ferritin-676. AFP-1.1 Alpha-1 antitrypsin-213 Ceruloplasmin pending PLAN - Paracentesis tomorrow - Hold Heparin after MN - Monitor LFTs - Rest of liver JUAREZ pending - Further recommendations to follow based on findings of above Pt has been seen and examined by myself and Dr. Villanueva and this note is written on his behalf (Angela Eddy) Physician Comments Seen and examined with HEALTH CARE CONSULTANT< ct noted. Paracentesis reordered. Coumadin oh hold. (Shawn Villanueva MD) Angela Eddy Jul 15, 2017 14:45 Shawn Villanueva MD Jul 15, 2017 15:22
[2017-07-15 17:21] LABS: HEMATOCRIT 26.6 % (35.0-46.0); MEAN CELL VOLUME 83.9 FL (80.0-100.0); MEAN CORPUSCULAR HEMOGLOBIN 28.3 PG (27.0-34.0); MEAN CORPUSCULAR HGB CONC 33.7 % (32.0-36.0); MEAN PLATELET VOLUME 8.1 FL (7.0-11.0); PLATELET COUNT 122 TH/MM3 (150-450); RED BLOOD COUNT 3.18 MIL/MM3 (4.00-5.30); RED CELL DISTRIBUTION WIDTH 19.1 % (11.6-17.2); WHITE BLOOD COUNT 2.2 TH/MM3 (4.0-11.0)
[2017-07-15 17:59] LABS: TOTAL PROTEIN 5.9 GM/DL (6.4-8.2)
--- NOTE | 2017-07-15 19:48 | ECHRPT ---
Indication: cardiomyopathy CONCLUSIONS The left ventricular systolic function is mildly reduced with an estimated ejection fraction in the range of 45- 50%. Mild concentric left ventricular hypertrophy. The right ventricle is severely dilated. Mild mitral valve regurgitation. There appears to be a mechanical AVR bileaflet, mean gradient 18, KATTY 0.56. There is severe/wide open tricuspid regurgitation. Unable to determine pulmonary artery systolic pressure based on severe TR. BP: / HR: Rhythm: MEASUREMENTS (Male / Female) Normal Values Technical Quality:Fair 2D ECHO LV Diastolic Diameter PLAX 4.3 cm 4.2 - 5.9 / 3.9 - 5.3 cm LV Systolic Diameter PLAX 3.4 cm IVS Diastolic Thickness 1.7 cm 0.6 - 1.0 / 0.6 - 0.9 cm LVPW Diastolic Thickness 1.5 cm 0.6 - 1.0 / 0.6 - 0.9 cm LV Relative Wall Thickness 0.7 RV Internal Dim ED PLAX 3.6 cm LVOT Diameter 2.0 cm M-MODE Aortic Root Diameter MM 3.3 cm LA Systolic Diameter MM 4.6 cm LA Ao Ratio MM 1.4 DOPPLER AV Peak Velocity 292.0 cm/s AV Peak Gradient 34.1 mmHg AV Mean Gradient 18.0 mmHg AV Velocity Time Integral 65.4 cm LVOT Peak Velocity 56.4 cm/s LVOT Peak Gradient 1.3 mmHg LVOT Velocity Time Integral 11.7 cm AV Area Cont Eq vti 0.6 cm AV Area Cont Eq pk 0.6 cm LV E' Lateral Velocity 12.0 cm/s LV E' Septal Velocity 9.4 cm/s TR Peak Velocity 204.0 cm/s TR Peak Gradient 16.6 mmHg Right Atrial Pressure 10.0 mmHg Pulmonary Artery Systolic Pressu 26.6 mmHg Right Ventricular Systolic Press 26.6 mmHg FINDINGS LEFT VENTRICLE Normal left ventricular size. The left ventricular systolic function is mildly reduced with an estimated ejection fraction in the range of 45- 50%. Mild concentric left ventricular hypertrophy. RIGHT VENTRICLE The right ventricle is severely dilated. LEFT ATRIUM The left atrial size is mildly dilated. RIGHT ATRIUM The right atrial size is moderately dilated. ATRIAL SEPTUM Normal atrial septal thickness without atrial level shunting by limited color doppler interrogation. AORTA The aortic root and proximal ascending aorta are normal in size on limited imaging. MITRAL VALVE Structurally normal mitral valve. Mild mitral valve regurgitation. No mitral valve stenosis. AORTIC VALVE The aortic valve is not well visualized. There appears to be a mechanical AVR bileaflet, mean gradient 18, KATTY 0.56. Aortic valve area is 0.56 cm. Aortic valve mean gradient is 18 mmHg. Trace aortic valve regurgitation. TRICUSPID VALVE Structurally normal tricuspid valve. There is severe/wide open tricuspid regurgitation. Unable to determine pulmonary artery systolic pressure based on severe TR. PULMONARY VALVE The pulmonary valve is not well visualized. VESSELS The inferior vena cava is normal in size. PERICARDIUM No pericardial effusion. Branden Oquendo DO (Electronically Signed) Final Date:15 July 2017 19:47
[2017-07-15] MEDS: MONTELUKAST SODIUM 10 MG TAB PO SCH (21:44)
--- NOTE | 2017-07-15 21:53 | HHI.PR ---
Subjective Remarks Patient sitting on the chair Reported no significant complain No chest pain or short of breath or diarrhea constipation Objective Vitals Vital Signs Date Time Temp Pulse Resp B/P (MAP) Pulse Ox O2 Delivery O2 Flow Rate FiO2 07/15/17 18:05 98.2 60 20 149/74 (99) 99 07/15/17 17:40 97.8 60 20 148/64 (92) 99 07/15/17 15:00 60 07/15/17 12:07 60 07/15/17 12:05 60 17 125/60 (81) 100 07/15/17 11:45 60 07/15/17 11:39 98.5 60 20 121/67 (85) 97 07/15/17 10:01 60 07/15/17 09:52 60 07/15/17 09:27 60 07/15/17 08:07 60 07/15/17 08:00 60 07/15/17 08:00 60 16 153/71 (98) 97 07/15/17 07:46 Room Air 96 07/15/17 07:46 98.0 60 20 153/71 (98) 96 07/15/17 07:30 60 07/15/17 06:46 60 07/15/17 06:00 60 07/15/17 05:00 60 07/15/17 04:00 60 07/15/17 03:00 60 07/15/17 03:00 98.1 60 16 130/76 (94) 97 07/15/17 02:00 60 07/15/17 01:00 52 07/15/17 00:19 92 Room Air 07/15/17 00:00 60 07/14/17 23:00 97.4 60 16 118/62 (80) 92 07/14/17 23:00 60 07/14/17 22:00 60 I/O 07/14/17 07/14/17 07/14/17 07/15/17 07/15/17 07/15/17 07:00 15:00 23:00 07:00 15:00 23:00 Intake Total 940 ml 93 ml 1530 ml 248 ml 720 ml Output Total 950 ml 300 ml 750 ml 250 ml 1250 ml Balance -10 ml -300 ml -657 ml 1530 ml -2 ml -530 ml Intake Oral 800 ml 980 ml 720 ml IV Total 140 ml 93 ml 550 ml 248 ml Output Urine Total 950 ml 300 ml 750 ml 250 ml 1250 ml # Voids 1 # Bowel Movements 0 1 Result Diagram: 07/15/17 1702 07/14/17 0600 Objective Remarks GENERAL: This is a well-nourished, well-developed patient, in no apparent distress. CARDIOVASCULAR: Regular rate and rhythm without murmurs, gallops, or rubs. RESPIRATORY: Clear to auscultation. Breath sounds equal bilaterally. No wheezes , rales, or rhonchi. GASTROINTESTINAL: Abdomen soft, mild T w D. Normal active bowel sounds MUSCULOSKELETAL: Extremities , +2 edema NEURO: Alert & Oriented x4 to person, place, time, situation. Moves all ext x4 A/P Problem List: (1) Symptomatic bradycardia ICD Code: R00.1 - Bradycardia, unspecified (2) Hypotension ICD Code: I95.9 - Hypotension, unspecified Status: Acute (3) Renal insufficiency ICD Code: N28.9 - Disorder of kidney and ureter, unspecified (4) Hypokalemia ICD Code: E87.6 - Hypokalemia (5) Follicular lymphoma grade I ICD Code: C82.00 - Follicular lymphoma grade I, unspecified site (6) History of aortic valve replacement ICD Code: Z95.2 - Presence of prosthetic heart valve Status: Chronic Assessment and Plan 07/15:INR today is 1.7, decision was to wait until tomorrow patient still on heparin drip for metallic valve A/P: 1. Symptomatic Bradycardia: HR 50's at home w/ c/o dizziness, s/p Pacemaker, concern for malfunction. Interrogate device. Admit to CIC, monitor on telemetry, hold Metoprolol. Echo 01/31/17 w/ EF 40-45%. Status post pacer placement the patient had cardiology follow-up 2. Hypotension: c/o episodes of hypotension w/ BP at home 70/51, HR 56. Currently BP 115/55, HR 60. H/o CHF, compounded by h/o Follicular Lymphoma w/ liver failure, monitor I/O, hold BP medications for now. Consult Dr. Buitrago for further evaluation/medication adjustment. Hold diuresis, monitor for overload. CXR w/ no acute findings, images reviewed by me. 3. Renal Insufficiency: Chronic. Creatinine 1.69, previously 1.97 on 06/17/17 , monitor I/O, caution w/ diuresis. Repeat labs in am. 4. Hypokalemia: K+ 2.9, give 40mEq, recheck and replace as needed. Check Mg 5. Follicular Lymphoma: Follows w/ Dr. Mayberry, +pancytopenia, chronic at baseline. Outpatient follow up as scheduled. 6. H/o AVR: on Chronic Anticoagulation, reports taking Coumadin 6mg qd, check INR, resume Coumadin if therapeutic. 7. DVT Prophylaxis: On Coumadin as above. Discharge Planning When cleared by cardiology and GI Problem Qualifiers (1) Hypotension: Qualified Codes: I95.9 - Hypotension, unspecified Yvette Dias MD Jul 15, 2017 21:53
[2017-07-16] VITALS (15 sets, daily range): BP systolic 110–169; BP diastolic 57–78; PULSE 58–72; RESP 15–19; TEMP 96–98.4; O2SAT 94–100
[2017-07-16 06:10] LABS: HEMATOCRIT 23.1 % (35.0-46.0); HEMOGLOBIN 7.8 GM/DL (11.6-15.3); MEAN CELL VOLUME 82.9 FL (80.0-100.0); MEAN CORPUSCULAR HEMOGLOBIN 28.1 PG (27.0-34.0); MEAN CORPUSCULAR HGB CONC 33.9 % (32.0-36.0); MEAN PLATELET VOLUME 8.3 FL (7.0-11.0); PLATELET COUNT 111 TH/MM3 (150-450); RED BLOOD COUNT 2.79 MIL/MM3 (4.00-5.30); RED CELL DISTRIBUTION WIDTH 18.8 % (11.6-17.2); WHITE BLOOD COUNT 1.7 TH/MM3 (4.0-11.0)
[2017-07-16 06:31] LABS: INTERNATIONAL NORMALIZED RATIO 1.3 RATIO; PROTHROMBIN TIME - PATIENT 13.4 SEC (9.8-11.6)
[2017-07-16] MEDS: ISOSORBIDE MONONITRATE 60 MG CR TAB (IMDUR) PO SCH (06:46)
[2017-07-16] MEDS: ACETAMINOPHEN/HYDROcodone 325 MG/10 MG TAB PO PRN ×3 (08:47→21:33)
[2017-07-16] MEDS: BACLOFEN 20 MG TAB PO SCH ×4 (08:51→21:32)
[2017-07-16] MEDS: DOCUSATE SODIUM 50 MG/SENNA 8.6 MG TAB PO SCH ×2 (08:51→21:00)
[2017-07-16] MEDS: PANTOPRAZOLE SOD 20 MG DELAYED RELEASE TAB PO SCH ×2 (08:52→21:32)
[2017-07-16] MEDS: ALLOPURINOL 300 MG TAB PO SCH (08:52)
[2017-07-16] MEDS: METOPROLOL TARTRATE 25 MG TAB PO SCH ×2 (08:52→21:32)
[2017-07-16] MEDS: SODIUM CHLORIDE 0.9% FLUSH 10 ML FLUSH IV FLUSH SCH ×2 (08:53→21:00)
--- NOTE | 2017-07-16 10:09 | HHI.GIFU ---
Subjective Remarks Pt going for paracentesis. She admits small amounts BRBPR, constipation, and some very dark stools. (Steffi Bundy) Objective Vitals I&O Vital Signs Date Time Temp Pulse Resp B/P (MAP) Pulse Ox O2 Delivery O2 Flow Rate FiO2 07/16/17 08:07 97.4 60 18 121/60 (80) 100 07/16/17 06:40 119/57 (77) 07/16/17 04:00 61 07/16/17 00:00 97.3 60 16 110/61 (77) 95 07/16/17 00:00 Room Air 07/16/17 00:00 60 07/15/17 20:00 Room Air 07/15/17 20:00 98.2 60 16 157/78 (104) 98 07/15/17 20:00 60 07/15/17 18:05 98.2 60 20 149/74 (99) 99 07/15/17 17:40 97.8 60 20 148/64 (92) 99 07/15/17 15:00 60 07/15/17 12:07 60 07/15/17 12:05 60 17 125/60 (81) 100 07/15/17 11:45 60 07/15/17 11:39 98.5 60 20 121/67 (85) 97 07/15/17 10:01 60 I/O 07/15/17 07/15/17 07/15/17 07/16/17 07/16/17 07/16/17 07:00 15:00 23:00 07:00 15:00 23:00 Intake Total 1530 ml 248 ml 720 ml 78 ml Output Total 250 ml 1250 ml 550 ml Balance 1530 ml -2 ml -530 ml -472 ml Intake Oral 980 ml 720 ml IV Total 550 ml 248 ml 78 ml Output Urine Total 250 ml 1250 ml 550 ml # Voids 1 # Bowel Movements 1 1 Laboratory Laboratory Tests Test 07/15/17 17:02 07/15/17 20:30 07/16/17 05:30 White Blood Count 2.2 1.7 Red Blood Count 3.18 2.79 Hemoglobin 9.0 7.8 Hematocrit 26.6 23.1 Mean Corpuscular Volume 83.9 82.9 Mean Corpuscular Hemoglobin 28.3 28.1 Mean Corpuscular Hemoglobin Concent 33.7 33.9 Red Cell Distribution Width 19.1 18.8 Platelet Count 122 111 Mean Platelet Volume 8.1 8.3 Lactate Dehydrogenase 181 Total Protein 5.9 Activated Partial Thromboplast Time 49.5 Prothrombin Time 13.4 Prothromb Time International Ratio 1.3 Date/Time Source Procedure Growth Status 07/15/17 14:00 Stool Stool Stool Occult Blood (JENNEI) - Final HEMOCCULT NEGATIVE Complete Imaging Last Impressions Abdomen/Pelvis CT 07/15/17 1718 Signed Impressions: Service Date/Time: Saturday, July 15, 2017 01:36 - CONCLUSION: 1. Moderate amount of ascitic fluid is mildly increased from the prior study. 2. Small bilateral pleural effusions are present. 3. Nonobstructing left renal calculus again noted. 4. Abnormal soft tissue density remains in the retroperitoneum not significantly changed. This may represent residual adenopathy versus scarring. Kris Cruz MD Liver Ultrasound 07/13/17 0000 Signed Impressions: Service Date/Time: Thursday, July 13, 2017 14:44 - CONCLUSION: Cirrhosis of liver with some surrounding fluid. The spleen is enlarged. No focal intrahepatic masses identified.. August Acosta MD Chest X-Ray 07/11/17 0000 Signed Impressions: Service Date/Time: Tuesday, July 11, 2017 23:23 - CONCLUSION: No acute cardiopulmonary disease. Kamryn Santamaria MD Physical Exam HEENT: Normocephalic; atraumatic CHEST: Even/unlabored CARDIAC: RRR ABDOMEN: Distended, semifirm, nontender, bowel sounds active EXTREMITIES: BLE edema SKIN: Normal; no rash; no jaundice. BALLET DANCER: No focal deficits; alert and oriented times three. (Steffi Bundy) Assessment and Plan Plan ASSESSMENT - ascites, abnormal imaging, isolated elevation ALP - unclear etiology. onset ascites 4 months ago, progressing. no significant hx etoh. is currently being bridged with heparin, INR too high currently for paracentesis - anemia - HH stable. microcytic likely multifactorial - hx grade 1 follicular lymphoma oncology following - renal insufficiency, per primary - bradycardia s/p pacemaker, s/p AVR cardiology following (07/14) --> Pt with continued abdominal swelling today. Intermittent pain, none at time of my exam. Some nausea, denies emesis. Liver JUAREZ pending. Paracentesis pending, INR needs to be less than 1.7 for procedure. Coumadin on hold. Pt on Heparin gtt to bridge. Liver US (07/13) noted --> Cirrhosis of liver with some surrounding fluid. Spleen is enlarged. No focal intrahepatic masses identified. Drop in H/H noted today --> 8.8/26.1, no obvious GIB. (07/15) --> S/P CT abdomen and pelvis yesterday --> Moderate amount of ascitic fluid is mildly increased from the prior study. Abnormal soft tissue density remains in the retroperitoneum not significantly changes. This may represent residual adenopathy vs scarring. INR now 1.6. Hepatitis panel negative. GERMAN and ASMA negative. AMA pending. Ferritin-676. AFP-1.1 Alpha-1 antitrypsin-213 Ceruloplasmin pending 07/16/17 hh trending down, admits some dark stools and BRBPR, small amount. Never had colonoscopy, last EGD 2005. going for paracentesis. liver w/u so far unremarkable. Pt also complaining that she is having hard stool requiring digital maneuvers to evacuate. PLAN - EGD and colonoscopy in am - clear liquids today - NPO after MN - obtain consent - miralax prep - bisacodyl suppository now - Fleets enema PRN if no BM after suppository, prior to prep - await Paracentesis - hold heparin am - Monitor LFTs - Rest of liver JUAREZ pending - Further recommendations to follow based on findings of above Pt has been seen and examined by myself and Dr. Villanueva and this note is written on his behalf (Steffi Bundy) Physician Comments Seen and examined with WHEEL CUTTER, s/p paracentesis. Egd/colonoscopy planned for tomorrow. Monitor labs, transfuse as needed. thank you (Shawn Villanueva MD) Steffi Bundy Jul 16, 2017 10:09 Shawn Villanueva MD Jul 16, 2017 16:39
[2017-07-16] MEDS ORDERED: BISACODYL 10 MG SUPP RECTAL ONE (10:30)
[2017-07-16] MEDS ORDERED: LIDOCAINE HCL 1% 20 ML VIAL ONE (10:55)
[2017-07-16] MEDS ORDERED: ACETAMINOPHEN 325 MG TAB PO PRN (11:15)
[2017-07-16] MEDS ORDERED: diphenhydrAMINE HCL 25 MG CAP PO PRN (11:15)
[2017-07-16] MEDS ORDERED: SODIUM CHLOR 0.9% 250 ML INJ 250 ML IV ONE (11:15)
--- NOTE | 2017-07-16 11:32 | PD.ONC.PN ---
Subjective Subjective Remarks Still has intermittent Cp and SOB. Await paracentesis. Denies GI bleed. Objective Data Date Time Temp Pulse Resp B/P (MAP) Pulse Ox O2 Delivery O2 Flow Rate FiO2 07/16/17 11:15 96.0 68 16 111/59 (76) 100 07/16/17 11:00 96.2 60 16 118/58 (78) 99 07/16/17 10:10 96.7 60 16 115/62 (79) 98 07/16/17 08:07 97.4 60 18 121/60 (80) 100 07/16/17 06:40 119/57 (77) 07/16/17 04:00 61 07/16/17 00:00 97.3 60 16 110/61 (77) 95 07/16/17 00:00 Room Air 07/16/17 00:00 60 07/15/17 20:00 Room Air 07/15/17 20:00 98.2 60 16 157/78 (104) 98 07/15/17 20:00 60 07/15/17 18:05 98.2 60 20 149/74 (99) 99 07/15/17 17:40 97.8 60 20 148/64 (92) 99 07/15/17 15:00 60 07/15/17 12:07 60 07/15/17 12:05 60 17 125/60 (81) 100 07/15/17 11:45 60 07/15/17 11:39 98.5 60 20 121/67 (85) 97 07/16/17 07/16/17 07/16/17 07:00 15:00 23:00 Intake Total 78 ml Output Total 550 ml Balance -472 ml Result Diagram: 07/16/17 0530 07/14/17 0600 Laboratory Results Laboratory Tests Test 07/15/17 17:02 07/15/17 20:30 07/16/17 05:30 White Blood Count 2.2 TH/MM3 1.7 TH/MM3 Red Blood Count 3.18 MIL/MM3 2.79 MIL/MM3 Hemoglobin 9.0 GM/DL 7.8 GM/DL Hematocrit 26.6 % 23.1 % Mean Corpuscular Volume 83.9 FL 82.9 FL Mean Corpuscular Hemoglobin 28.3 PG 28.1 PG Mean Corpuscular Hemoglobin Concent 33.7 % 33.9 % Red Cell Distribution Width 19.1 % 18.8 % Platelet Count 122 TH/MM3 111 TH/MM3 Mean Platelet Volume 8.1 FL 8.3 FL Lactate Dehydrogenase 181 U/L Total Protein 5.9 GM/DL Activated Partial Thromboplast Time 49.5 SEC Prothrombin Time 13.4 SEC Prothromb Time International Ratio 1.3 RATIO Culture Results Microbiology Date/Time Source Procedure Growth Status 07/15/17 14:00 Stool Stool Stool Occult Blood (JENNIE) - Final HEMOCCULT NEGATIVE Complete Imaging Studies Last 24 hours Impressions Abdomen/Pelvis CT 07/15/17 1718 Signed Impressions: Service Date/Time: Saturday, July 15, 2017 01:36 - CONCLUSION: 1. Moderate amount of ascitic fluid is mildly increased from the prior study. 2. Small bilateral pleural effusions are present. 3. Nonobstructing left renal calculus again noted. 4. Abnormal soft tissue density remains in the retroperitoneum not significantly changed. This may represent residual adenopathy versus scarring. Kris Cruz MD Administered Medications Medications (Trade) Dose Ordered Sig/Love Route PRN Reason Start Time Stop Time Status Last Admin Dose Admin Sodium Chloride (NS Flush) 2 ml BID IV FLUSH 07/12/17 09:00 07/16/17 08:53 Senna/Docusate Sodium (Cassidy-Colace) 1 tab BID PO 07/12/17 09:00 07/16/17 08:51 Allopurinol (Zyloprim) 300 mg DAILY PO 07/12/17 09:00 07/16/17 08:52 Baclofen (Lioresal) 20 mg QID PO 07/12/17 09:00 07/16/17 08:51 Montelukast Sodium (Singulair) 10 mg HS PO 07/12/17 21:00 07/15/17 21:44 Tizanidine HCl (Zanaflex) 4 mg HS PO 07/12/17 21:00 07/15/17 21:42 Pantoprazole Sodium (Protonix) 20 mg BID PO 07/12/17 09:00 07/16/17 08:52 Acetaminophen/ Hydrocodone Bitart ([place] 10-325 Mg) 1 tab Q4H PRN PO pain 6-10 07/12/17 21:45 07/16/17 08:47 Acetaminophen/ Hydrocodone Bitart ([place] 5-325 Mg) 1 tab Q4H PRN PO pain 3-5 07/12/17 21:45 07/12/17 22:08 Nitroglycerin (Nitrostat Sl) 0.4 mg Q5M PRN SL CHEST PAIN 07/13/17 03:45 07/13/17 03:56 Metoprolol Tartrate (Lopressor) 12.5 mg Q12HR PO 07/14/17 21:00 07/16/17 08:52 Isosorbide Mononitrate (Imdur) 60 mg DAILY@07 PO 07/15/17 07:00 07/16/17 06:46 Objective Remarks GENERAL: Well-nourished, well-developed patient. SKIN: Warm and dry. Pale HEAD: Normocephalic. EYES: No scleral icterus. No injection or drainage. NECK: Supple, trachea midline. No JVD or lymphadenopathy. LYMPHATIC: No adenopathy. CARDIOVASCULAR: Regular rate and rhythm, + murmurs. RESPIRATORY: Breath sounds equal bilaterally. No accessory muscle use. GASTROINTESTINAL: Abdomen soft, non-tender, slightly distended. EXTREMITIES: No cyanosis, 3+ BLE edema. MUSCULOSKELETAL: Adequate muscle tone. NEUROLOGICAL: No obvious focal deficit. Awake, alert, and oriented x3. PSYCHIATRIC: Appropriate mood and affect; insight and judgment normal. Assessment/Plan Problem List: (1) Follicular lymphoma grade I ICD Codes: C82.00 - Follicular lymphoma grade I, unspecified site Plan: Hx/Workup: Patient is status post 3 cycles of chemotherapy with bendamustine and Rituxan completed in March 2017. She continues on maintenance Rituxan and had her last dose in clinic last week. Her course was complicated by coronary artery disease requiring a [place] aortic valve replacement. -- No evidence to show that she has a progression of her lymphoma (2) Symptomatic bradycardia ICD Codes: R00.1 - Bradycardia, unspecified Plan: -- Cardiology following -- Interrogation of the pacemaker so far shows no malfunction -- Continues to have periodic episodes of symptomatic bradycardia (3) Ascites ICD Codes: R18.8 - Other ascites Plan: --GI following. --unclear etiology --GI ordered u/s guided paracentesis today --coumadin was discontinued and on heparin (4) Pancytopenia ICD Codes: D61.818 - Other pancytopenia Plan: Due to cirrhosis and splenomegaly. Hgb trended lower but no evidence of bleeding. Given symptoms oc CP and SOB, will give 1U PRBC. Assessment 67 y/o female with history of follicular lymphoma admitted for symptomatic bradycardia h/o atrial fibrillation and valvular heart disease. --received Rituxan 10 days prior to admission. Plan 1. monitor CBC, coags 2. continue heparin gtt 3. Transfuse PRBC [address] U 4. Await paracentesis Lane Mayberry MD Jul 16, 2017 11:32
--- NOTE | 2017-07-16 12:04 | RADRPT ---
EXAM DATE/TIME: 07/16/2017 08:34 [facility] COMPARISON: EXTERNAL COMPARISON: US ABDOMEN - LIVER, July 13, 2017, 14:44. [facility], PET/CT TUMOR, Jun 27 2017, December 02, 2016, CT ABDOMEN & PELVIS W/O CONTRAST, March 28, 2017, November 13, 2016, US ABDOMEN COMPLETE, Octobe r 2016, June 20, 2016. INDICATIONS : Ascites. MEDICAL HISTORY : Multiple sclerosis. Congestive heart failure. Hypercholesterolemia. Bilateral cataracts. TIA x3. Seiz ures. Chest pain. Bradycardia. HTN. Asthma. GERD. Hematuria. Renal calculi. Diabetes. Skin cancer on nose. Non-Hodgkin's lymphoma with tumor in abdomen. ascites. anticoagulant therapy, heparin. SURGICAL HISTORY : Pacemaker. Appendectomy. Cholecystectomy. Aortic valve replacement. Chocolate cyst removal. Left ooph erectomy. Hysterectomy. Back surgery. Chemotherapy. Blood transfusions. Port placed. ENCOUNTER: Initial ACUITY: 1 day PAIN SCORE: 6/10 LOCATION: Left lower quadrant FLUID: Total volume of 5,700 cc of cloudy, yellow fluid was removed. Fluid was sent to lab for ordered studies. Post procedure scanning reveals no hematoma or other complication. TECHNIQUE: 1. Ultrasound guidance for abdominal paracentesis. 2. Paracentesis. The risks, benefits, and alternatives to ultrasound guided paracentesis were explained to the patient in detail including the risk of bleeding and infection. Written and verbal informed consent was obt ained. With the patient on the ultrasound table, ultrasound imaging was used to select the most appropriate approach for paracentesis. Overlying skin was prepped and draped in the usual sterile fashion and wi th a local anesthetic, a dermatotomy was made with an 11 blade scalpel. A 6 Uz[place] Hop-D-prptayzv ca theter was introduced into the peritoneal cavity and fluid was collected. The patient tolerated the procedure well and left the ultrasound suite in stable condition. CONCLUSION: Uncomplicated ultrasound guided paracentesis. Cleveland Tomas MD on July 16, 2017 at 12:02 Board Certified Radiologist. This report was verified electronically.
[2017-07-16 12:43] LABS: TOTAL PROTEIN,PERITONEAL FLUID 2.6 GM/DL
[2017-07-16 12:57] LABS: PERITONEAL RBC 2174 /MM3 (0-0)
[2017-07-16 13:01] LABS: PERITONEAL HISTIOCYTES 33 %; PERITONEAL LYMPHS 16 %; PERITONEAL MESOTHELIAL 34 %; PERITONEAL MONOS 6 %; PERITONEAL POLYS(SEGS) 12 %
[2017-07-16] MEDS: ACETAMINOPHEN/HYDROcodone 325 MG/5 MG TAB PO PRN (13:46)
[2017-07-16] MEDS ORDERED: BISACODYL EC 5 MG TABEC PO ONE (15:00)
--- NOTE | 2017-07-16 15:35 | HHI.PR ---
Subjective Remarks had paracentesis done - 5/7 L out- feeling much better no nausea or vomiting, no abdominal pain not short of breath Objective Vitals Vital Signs Date Time Temp Pulse Resp B/P (MAP) Pulse Ox O2 Delivery O2 Flow Rate FiO2 07/16/17 12:00 97.3 60 19 131/61 (84) 99 07/16/17 11:15 96.0 68 16 111/59 (76) 100 07/16/17 11:00 96.2 60 16 118/58 (78) 99 07/16/17 10:10 96.7 60 16 115/62 (79) 98 07/16/17 08:07 97.4 60 18 121/60 (80) 100 07/16/17 06:40 119/57 (77) 07/16/17 04:00 61 07/16/17 00:00 97.3 60 16 110/61 (77) 95 07/16/17 00:00 Room Air 07/16/17 00:00 60 07/15/17 20:00 Room Air 07/15/17 20:00 98.2 60 16 157/78 (104) 98 07/15/17 20:00 60 07/15/17 18:05 98.2 60 20 149/74 (99) 99 07/15/17 17:40 97.8 60 20 148/64 (92) 99 I/O 07/15/17 07/15/17 07/15/17 07/16/17 07/16/17 07/16/17 07:00 15:00 23:00 07:00 15:00 23:00 Intake Total 1530 ml 248 ml 720 ml 78 ml Output Total 250 ml 1250 ml 550 ml Balance 1530 ml -2 ml -530 ml -472 ml Intake Oral 980 ml 720 ml IV Total 550 ml 248 ml 78 ml Output Urine Total 250 ml 1250 ml 550 ml # Voids 1 # Bowel Movements 1 1 Result Diagram: 07/16/17 0530 07/14/17 0600 A/P Problem List: (1) Symptomatic bradycardia ICD Code: R00.1 - Bradycardia, unspecified (2) Hypotension ICD Code: I95.9 - Hypotension, unspecified Status: Acute (3) Renal insufficiency ICD Code: N28.9 - Disorder of kidney and ureter, unspecified (4) Hypokalemia ICD Code: E87.6 - Hypokalemia (5) Follicular lymphoma grade I ICD Code: C82.00 - Follicular lymphoma grade I, unspecified site (6) History of aortic valve replacement ICD Code: Z95.2 - Presence of prosthetic heart valve Status: Chronic Assessment and Plan 67 years old female Symptomatic Bradycardia with history of chronic atrial fibrillation S/P PM. History of CAD History of AVR with Mechanical Aortic valve Hypotension - resolved : HR 50's at home w/ c/o dizziness, s/p Pacemaker,- device interrogated- no malfunction HR improved off BB telemetry- paced rhythm continue on Lopressor 12.5 mg po bid, Imdur 60 mg daily Heparin + coumadin overlap- coumadin on hold for now - for GI procedure for EGD/colonoscopy in am. PPI eventually start diuretics New Onset ascites- likely secondary to malignancy- S/P paracentesis 5.7 L out Acute anemia Follicular Lymphoma Pancytopenia Dr. Mayberry ff for 1 unit RBC transfusion today Renal Insufficiency: Chronic. Creatinine 1.69, previously 1.97 on 06/17/17, monitor I/O, caution w/ diuresis. ff labs Hypokalemia: corrected Discharge Planning When cleared by cardiology and GI Problem Qualifiers (1) Hypotension: Qualified Codes: I95.9 - Hypotension, unspecified Joseph Wright MD Jul 16, 2017 15:35
[2017-07-16] MEDS ORDERED: POLYETHYLENE GLYCOL 17 GM PKG PO ONE (16:00)
[2017-07-16] MEDS: MONTELUKAST SODIUM 10 MG TAB PO SCH (21:32)
[2017-07-17] VITALS (8 sets, daily range): BP systolic 106–138; BP diastolic 58–87; PULSE 60–75; RESP 16–20; TEMP 97.1–98.1; O2SAT 92–100
[2017-07-17] MEDS ORDERED: SODIUM CHLORID 0.9% 500 ML IV PRN (03:45)
[2017-07-17] MEDS ORDERED: CHLORHEXIDINE GLUCONATE 2 % 1 PACK (2 CLOTHS) TOPICAL PRN (03:45)
[2017-07-17] MEDS ORDERED: LACTATED RINGER'S 1000 ML IV PRN (03:45)
[2017-07-17] MEDS: ISOSORBIDE MONONITRATE 60 MG CR TAB (IMDUR) PO SCH (06:26)
[2017-07-17 07:12] LABS: INTERNATIONAL NORMALIZED RATIO 1.4 RATIO; PROTHROMBIN TIME - PATIENT 13.7 SEC (9.8-11.6)
--- NOTE | 2017-07-17 08:35 | HHI.PR ---
Subjective Remarks no complains of pain liquid stools from colonoscopy prep Objective Vitals Vital Signs Date Time Temp Pulse Resp B/P (MAP) Pulse Ox O2 Delivery O2 Flow Rate FiO2 07/17/17 08:20 97.3 60 18 138/62 (87) 99 07/17/17 04:42 97.6 60 16 134/63 (86) 96 07/17/17 04:17 Room Air 07/17/17 04:00 106/60 (75) 07/17/17 00:00 60 07/17/17 00:00 97.5 60 20 128/87 (101) 100 07/17/17 00:00 Room Air 07/16/17 21:48 97.9 59 17 169/78 (108) 97 07/16/17 20:00 Room Air 07/16/17 20:00 60 07/16/17 18:22 98.4 61 18 137/68 100 07/16/17 18:02 98.1 60 17 163/68 99 07/16/17 16:15 98.2 58 15 140/67 (91) 94 07/16/17 16:00 60 07/16/17 12:00 97.3 60 19 131/61 (84) 99 07/16/17 11:15 96.0 68 16 111/59 (76) 100 07/16/17 11:00 96.2 60 16 118/58 (78) 99 07/16/17 10:10 96.7 60 16 115/62 (79) 98 I/O 07/16/17 07/16/17 07/16/17 07/17/17 07/17/17 07/17/17 07:00 15:00 23:00 07:00 15:00 23:00 Intake Total 78 ml 1132 ml 480 ml Output Total 550 ml 350 ml Balance -472 ml 1132 ml 130 ml Intake Oral 720 ml 480 ml IV Total 78 ml Packed Cells 400 ml Blood Product IV Normal Saline Flush 12 ml Output Urine Total 550 ml 350 ml # Voids 4 # Bowel Movements 1 2 1 Result Diagram: 07/16/17 0530 07/14/17 0600 Imaging Last Impressions Cyst Biopsy Asp-Paracentesis US 07/16/17 0000 Signed Impressions: Service Date/Time: Sunday, July 16, 2017 08:34 - CONCLUSION: Uncomplicated ultrasound guided paracentesis. Cleveland Tomas MD Abdomen/Pelvis CT 07/15/17 1718 Signed Impressions: Service Date/Time: Saturday, July 15, 2017 01:36 - CONCLUSION: 1. Moderate amount of ascitic fluid is mildly increased from the prior study. 2. Small bilateral pleural effusions are present. 3. Nonobstructing left renal calculus again noted. 4. Abnormal soft tissue density remains in the retroperitoneum not significantly changed. This may represent residual adenopathy versus scarring. Kris Cruz MD Liver Ultrasound 07/13/17 0000 Signed Impressions: Service Date/Time: Thursday, July 13, 2017 14:44 - CONCLUSION: Cirrhosis of liver with some surrounding fluid. The spleen is enlarged. No focal intrahepatic masses identified.. August Acosta MD Chest X-Ray 07/11/17 0000 Signed Impressions: Service Date/Time: Tuesday, July 11, 2017 23:23 - CONCLUSION: No acute cardiopulmonary disease. Kamryn Santamaria MD Objective Remarks awake and alert, no acute distress anicteric lungs- no rales, no wheezes regular rhythm abdomen- flabby, soft, extremities + edema moves all extremities spontaneously- generalized weakness A/P Problem List: (1) Symptomatic bradycardia ICD Code: R00.1 - Bradycardia, unspecified (2) Hypotension ICD Code: I95.9 - Hypotension, unspecified Status: Acute (3) Renal insufficiency ICD Code: N28.9 - Disorder of kidney and ureter, unspecified (4) Hypokalemia ICD Code: E87.6 - Hypokalemia (5) Follicular lymphoma grade I ICD Code: C82.00 - Follicular lymphoma grade I, unspecified site (6) History of aortic valve replacement ICD Code: Z95.2 - Presence of prosthetic heart valve Status: Chronic Assessment and Plan 67 years old female Symptomatic Bradycardia with history of chronic atrial fibrillation S/P PM. History of CAD History of AVR with Mechanical Aortic valve Hypotension - resolved : HR 50's at home w/ c/o dizziness, s/p Pacemaker,- device interrogated- no malfunction HR improved telemetry- paced rhythm continue on Lopressor 12.5 mg po bid, Imdur 60 mg daily Heparin + coumadin overlap- coumadin on hold for now - for GI procedure for EGD/colonoscopy today PPI New Onset ascites- likely secondary to malignancy- S/P paracentesis 5.7 L out. eventually start diuretics Acute anemia Follicular Lymphoma Pancytopenia Dr. Mayberry ff S/P RBC transfusion 07/16 CBC today- pending Renal Insufficiency: Chronic. Creatinine 1.69, previously 1.97 on 06/17/17, monitor I/O, caution w/ diuresis. ff labs Hypokalemia: corrected PT consult- generalized deconditioning Discharge Planning When cleared by cardiology and GI Problem Qualifiers (1) Hypotension: Qualified Codes: I95.9 - Hypotension, unspecified Joseph Wright MD Jul 17, 2017 08:35
[2017-07-17] MEDS: DOCUSATE SODIUM 50 MG/SENNA 8.6 MG TAB PO SCH ×2 (08:39→21:00)
[2017-07-17] MEDS: PANTOPRAZOLE SOD 20 MG DELAYED RELEASE TAB PO SCH ×2 (08:41→21:29)
[2017-07-17] MEDS: METOPROLOL TARTRATE 25 MG TAB PO SCH ×2 (08:41→21:30)
[2017-07-17] MEDS: ALLOPURINOL 300 MG TAB PO SCH (08:41)
[2017-07-17] MEDS: SODIUM CHLORIDE 0.9% FLUSH 10 ML FLUSH IV FLUSH SCH ×2 (08:42→21:00)
[2017-07-17] MEDS: BACLOFEN 20 MG TAB PO SCH ×4 (10:02→21:29)
[2017-07-17] MEDS ORDERED: ONDANSETRON HCL 4 MG/2 ML VIAL IV ONE (12:00)
[2017-07-17] MEDS ORDERED: SUCCINYLCHOLINE CHLORIDE 100 MG/5 ML SYRINGE IV PUSH ONE (12:00)
[2017-07-17] MEDS ORDERED: LIDOCAINE HCL 1% PF 5 ML SYRINGE OTHER ONE (12:00)
[2017-07-17] MEDS ORDERED: PROPOFOL 200 MG/20 ML AMP IV ONE (12:00)
[2017-07-17] MEDS ORDERED: ePHEDrine/NS 25 MG/5 ML SYRINGE IV ONE (12:00)
[2017-07-17] MEDS ORDERED: DEXAMETHASONE SOD PHOS 4 MG/ML VIAL IV ONE (12:00)
[2017-07-17 13:34] LABS: BICARBONATE 29.4 MEQ/L (21.0-32.0); CALCIUM 8.9 MG/DL (8.5-10.1); CREATININE 1.04 MG/DL (0.50-1.00)
--- NOTE | 2017-07-17 14:09 | GIPROC ---
[facility] [address] [place] [facility]. [facility], [address] EGD PROCEDURE REPORT EXAM DATE: 07/17/2017 PATIENT NAME: Radha Bertrand MR #: [id number] BIRTHDATE: 1950 ATTENDING: Shawn Villanueva MD ORDER #: [id number] CARDIAC CARE NURSE: Dorothea Plummer and Cecil Patel STATUS: inpatient INDICATIONS: The patient is a 67 yr old female here for an EGD due to iron deficiency anemia and Cirrhosis PROCEDURE PERFORMED: EGD w/ biopsy MEDICATIONS: None and Per Anesthesia. TOPICAL ANESTHETIC: CONSENT: The patient understands the risks and benefits of the procedure and understands that these risks include, but are not limited to: sedation, allergic reaction, infection, perforation and/or bleeding. Alternative means of evaluation and treatment include, among others: physical exam, x-rays, and/or surgical intervention. The patient elects to proceed with this endoscopic procedure. medical equipment was checked for proper function. Hand hygiene and appropriate measures for infection prevention was taken. After the risks, benefits and alternatives of the procedure were thoroughly explained, Informed consent was verified, confirmed and timeout was successfully executed by the treatment team. The patient was anesthetized with topical anesthesia and the EC-[id number] (Pedi C) endoscope was introduced through the mouth and advanced to the second portion of the duodenum. Retroflexed views revealed no abnormalities The gastroscope was then slowly withdrawn and removed. ESOPHAGUS: There was a single small varix in the distal esophagus. There was evidence of prior scarring. STOMACH: There was erythematous severe gastritis with heme present in the gastric antrum. A biopsy was performed using cold forceps. Sample sent for histology. Moderate portal hypertensive gastropathy was found in the gastric fundus. DUODENUM: The duodenal mucosa appeared normal in the bulb and second portion of the duodenum. ADVERSE EVENTS: There were no complications. IMPRESSIONS: 1. There was erythematous gastritis in the gastric antrum; biopsy was performed 2. Portal hypertensive gastropathy was found in the gastric fundus 3. Normal duodenal mucosa in the bulb and second portion of the duodenum 4. Retroflexed views revealed no abnormalities RECOMMENDATIONS: 1. Await biopsy results. Biopsy results will not be ready for 7-10 days. If you don't hear from us in two weeks, call our office for biopsy results. 2. Anti-reflux regimen 3. Continue PPI 4. Avoid NSAIDS 5. Carafate 1 gm po tid ac PATIENT CONDITION: stable DISPOSITION: Inpatient REPEAT EXAM: Return 6 months EGD pending biopsy results Shawn Villanueva MD eSigned: Shawn Villanueva MD 07/17/2017 2:09 PM cc: PATIENT NAME: Radha Bertrand MR#: [id number]
--- NOTE | 2017-07-17 14:20 | GIPROC ---
[facility] [address] [place] [facility]. [facility], [address] COLONOSCOPY PROCEDURE REPORT EXAM DATE: 07/17/2017 PATIENT NAME: Radha Bertrand MR #: [id number] BIRTHDATE: 1950 ENDOSCOPIST: Shawn Villanueva MD ORDER #: [id number] ANIMAL CARE SPECIALIST: Dorothea Plummer and Cecil Patel STATUS: inpatient INDICATIONS: The patient is a 67 yr old female here for a colonoscopy due to iron deficiency anemia and hematochezia PROCEDURE PERFORMED: Colonoscopy with biopsy MEDICATIONS: None and Per Anesthesia. PREP QUALITY: The [place] Bowel Prep Score was Right colon 1, Mid colon 1, and Left colon 1. Total = 3. PREP TYPE:GoLytely ESTIMATED BLOOD LOSS: None CONSENT: The patient understands the risks and benefits of the procedure and understands that these risks include, but are not limited to: sedation, allergic reaction, infection, perforation and/or bleeding. Alternative means of evaluation and treatment include, among others: physical exam, x-rays, and/or surgical intervention. The patient elects to proceed with this endoscopic procedure. medical equipment was checked for proper function. Hand hygiene and appropriate measures for infection prevention was taken. After the risks, benefits and alternatives of the procedure were thoroughly explained, Informed consent was verified, confirmed and timeout was successfully executed by the treatment team. A digital exam revealed external hemorrhoids The Pentax EC-[id number] endoscope was introduced through the anus and advanced to the cecum, which was identified by both the appendix and ileocecal valve. The instrument was then slowly withdrawn as the colon was fully examined. COLON FINDINGS: Three non-bleeding, shallow and clean-based ulcers ranging between 3-5 mm in size were found in the rectum. Biopsies were taken at edge of the ulcers. Retroflexed views revealed internal hemorrhoids and Retroflexed views revealed medium internal hemorrhoids The scope was then completely withdrawn from the patient and the procedure terminated. PROCEDURE WITHDRAWAL TIME:6minutes ADVERSE EVENTS: There were no complications. IMPRESSIONS: 1. Three ulcers ranging between 3-5 mm in size were found in the rectum; biopsies were taken 2. Retroflexed views revealed internal hemorrhoids 3. Retroflexed views revealed medium internal hemorrhoids 4. Revealed external hemorrhoids RECOMMENDATIONS: 1. Await biopsy results. Biopsy results will not be ready for 7-10 days. If you don't hear from us in two weeks, call our office for results. 2. Continue surveillance RECALL: Return 3 months Colonoscopy, pending biopsy results Shawn Villanueva MD eSigned: Shawn Villanueva MD 07/17/2017 2:19 PM cc: PATIENT NAME: Radha Bertrand Alessandra MR#: [id number]
[2017-07-17] MEDS ORDERED: DO NOT ADM ANY ANTICOAGULANT DRUGS PRN (14:30)
--- NOTE | 2017-07-17 14:59 | PD.ONC.PN ---
Subjective Subjective Remarks Afebrile overnight. Patient seen in PACU. just finished with torres-colonoscopy. she feels bloated and gassy. Objective Data Date Time Temp Pulse Resp B/P (MAP) Pulse Ox O2 Delivery O2 Flow Rate FiO2 07/17/17 14:45 60 14 134/66 (88) 95 Room Air 07/17/17 14:30 97.5 60 12 137/63 (87) 100 Nasal Cannula 3 07/17/17 08:20 97.3 60 18 138/62 (87) 99 07/17/17 04:42 97.6 60 16 134/63 (86) 96 07/17/17 04:17 Room Air 07/17/17 04:00 106/60 (75) 07/17/17 00:00 60 07/17/17 00:00 97.5 60 20 128/87 (101) 100 07/17/17 00:00 Room Air 07/16/17 21:48 97.9 59 17 169/78 (108) 97 07/16/17 20:00 Room Air 07/16/17 20:00 60 07/16/17 18:22 98.4 61 18 137/68 100 07/16/17 18:02 98.1 60 17 163/68 99 07/16/17 16:15 98.2 58 15 140/67 (91) 94 07/16/17 16:00 60 07/17/17 07/17/17 07/17/17 07:00 15:00 23:00 Intake Total 480 ml 300 ml Output Total 350 ml Balance 130 ml 300 ml Result Diagram: 07/16/17 0530 07/17/17 1125 Laboratory Results Laboratory Tests Test 07/17/17 06:32 07/17/17 11:25 Prothrombin Time 13.7 SEC Prothromb Time International Ratio 1.4 RATIO Blood Urea Nitrogen 27 MG/DL Creatinine 1.04 MG/DL Random Glucose 110 MG/DL Calcium Level 8.9 MG/DL Sodium Level 133 MEQ/L Potassium Level 3.8 MEQ/L Chloride Level 97 MEQ/L Carbon Dioxide Level 29.4 MEQ/L Anion Gap 7 MEQ/L Estimat Glomerular Filtration Rate 53 ML/MIN Culture Results Microbiology Date/Time Source Procedure Growth Status 07/16/17 10:13 Fluid Peritoneal Fluid Gram Stain - Final Resulted 07/16/17 10:13 Fluid Peritoneal Fluid Body Fluid Culture Pending Resulted 07/15/17 14:00 Stool Stool Stool Occult Blood (JENNIE) - Final HEMOCCULT NEGATIVE Complete Administered Medications Medications (Trade) Dose Ordered Sig/Love Route PRN Reason Start Time Stop Time Status Last Admin Dose Admin Sodium Chloride (NS Flush) 2 ml BID IV FLUSH 07/12/17 09:00 07/17/17 08:42 Senna/Docusate Sodium (Cassidy-Colace) 1 tab BID PO 07/12/17 09:00 07/16/17 08:51 Allopurinol (Zyloprim) 300 mg DAILY PO 07/12/17 09:00 07/17/17 08:41 Baclofen (Lioresal) 20 mg QID PO 07/12/17 09:00 07/17/17 10:02 Montelukast Sodium (Singulair) 10 mg HS PO 07/12/17 21:00 07/16/17 21:32 Tizanidine HCl (Zanaflex) 4 mg HS PO 07/12/17 21:00 07/16/17 21:32 Pantoprazole Sodium (Protonix) 20 mg BID PO 07/12/17 09:00 07/17/17 08:41 Acetaminophen/ Hydrocodone Bitart ([place] 10-325 Mg) 1 tab Q4H PRN PO pain 6-10 07/12/17 21:45 07/16/17 21:33 Acetaminophen/ Hydrocodone Bitart ([place] 5-325 Mg) 1 tab Q4H PRN PO pain 3-5 07/12/17 21:45 07/16/17 13:46 Nitroglycerin (Nitrostat Sl) 0.4 mg Q5M PRN SL CHEST PAIN 07/13/17 03:45 07/13/17 03:56 Metoprolol Tartrate (Lopressor) 12.5 mg Q12HR PO 07/14/17 21:00 07/17/17 08:41 Isosorbide Mononitrate (Imdur) 60 mg DAILY@07 PO 07/15/17 07:00 07/17/17 06:26 Objective Remarks GENERAL: Middle aged female, lying supine in bed resting. SKIN: Warm and dry. HEAD: Normocephalic. EYES: No injection or drainage. NECK: Supple, trachea midline. CARDIOVASCULAR: Regular rate and rhythm RESPIRATORY: Breath sounds equal bilaterally. No accessory muscle use. GASTROINTESTINAL: Abdomen distended. +borborygmi EXTREMITIES: No cyanosis. bilateral lower extremities with edema, thickened skin and multiple ~3mm flesh colored papules. NEUROLOGICAL: awake and alert, normal speech. Assessment/Plan Problem List: (1) Follicular lymphoma grade I ICD Codes: C82.00 - Follicular lymphoma grade I, unspecified site Plan: Hx/Workup: Patient is status post 3 cycles of chemotherapy with bendamustine and Rituxan completed in March 2017. She continues on maintenance Rituxan and had her last dose in clinic last week. Her course was complicated by coronary artery disease requiring a [facility] [facility] aortic valve replacement. -- No evidence to show that she has a progression of her lymphoma (2) Symptomatic bradycardia ICD Codes: R00.1 - Bradycardia, unspecified Plan: -- Cardiology following -- Interrogation of the pacemaker so far shows no malfunction -- Continues to have periodic episodes of symptomatic bradycardia (3) Ascites ICD Codes: R18.8 - Other ascites Plan: --GI following. --unclear etiology --s/p paracentesis, cytology negative for malignant cells. (4) Pancytopenia ICD Codes: D61.818 - Other pancytopenia Plan: Due to cirrhosis and splenomegaly. Hgb trended lower but no evidence of bleeding. --given 1 unit pRBC, 07/16 --s/p panendoscopy on 07/17 which showed rectal ulcers, non-bleeding esophageal varices. Assessment 67 y/o female with history of follicular lymphoma admitted for symptomatic bradycardia h/o atrial fibrillation and valvular heart disease. --received Rituxan 10 days prior to admission. Plan 1. monitor CBC 2. resume heparin gtt when cleared by GI Attending Statement The exam, history, and the medical decision-making described in the above note were completed with the assistance of the mid-level provider. I reviewed and agree with the findings presented. I attest that I had a [id number] encounter with the patient on the same day, and personally performed and documented my assessment and findings in the medical record. Feels better after paracentesis and BM. Had 1 U PRBC, repeat CBC pending. Continue supportive care. Yokasta Andrew Jul 17, 2017 14:59 Lane Mayberry MD Jul 17, 2017 15:06
[2017-07-17] MEDS: SUCRALFATE 1 GM TAB PO SCH (16:02)
[2017-07-17] MEDS: ACETAMINOPHEN/HYDROcodone 325 MG/10 MG TAB PO PRN ×2 (18:00→22:10)
[2017-07-17] MEDS: SPIRONOLACTONE 25 MG TAB PO SCH (18:01)
[2017-07-17] MEDS: MONTELUKAST SODIUM 10 MG TAB PO SCH (21:30)
[2017-07-17 23:53] LABS: MITOCHONDRIAL ABS LESS THAN 20.0 U (<=20.0)
[2017-07-18] VITALS (9 sets, daily range): BP systolic 98–152; BP diastolic 50–72; PULSE 59–62; RESP 18; TEMP 97.1–98.3; O2SAT 96–100
[2017-07-18 02:18] LABS: AUTOMATED NEUTROPHIL # 1.9 TH/MM3 (1.8-7.7); BASOPHIL % 0.6 % (0.0-2.0); EOSINOPHIL % 0.2 % (0.0-4.0); HEMATOCRIT 28.3 % (35.0-46.0); HEMOGLOBIN 9.7 GM/DL (11.6-15.3); LYMPH % 2.9 % (9.0-44.0); LYMPHOCYTE # 0.1 TH/MM3 (1.0-4.8); MEAN CELL VOLUME 83.6 FL (80.0-100.0); MEAN CORPUSCULAR HEMOGLOBIN 28.6 PG (27.0-34.0); MEAN CORPUSCULAR HGB CONC 34.2 % (32.0-36.0); MEAN PLATELET VOLUME 8.5 FL (7.0-11.0); MONO % 10.8 % (0.0-8.0); MONOCYTE # 0.2 TH/MM3 (0-0.9); NEUT % 85.5 % (16.0-70.0); PLATELET COUNT 120 TH/MM3 (150-450); RED BLOOD COUNT 3.39 MIL/MM3 (4.00-5.30); RED CELL DISTRIBUTION WIDTH 18.2 % (11.6-17.2); WHITE BLOOD COUNT 2.3 TH/MM3 (4.0-11.0)
[2017-07-18 03:00] LABS: BANDS 8 % (0-6); BASOPHILS 1 % (0-2); LYMPHOCYTES 3 % (9-44); MONOCYTES 8 % (0-8); POLYS (SEG NEUTROPHILS) 80 % (16-70)
[2017-07-18 03:01] LABS: OVALOCYTES 1+ (NORMAL)
[2017-07-18 03:02] LABS: ACANTHOCYTES OCC (NORMAL)
[2017-07-18] MEDS: ISOSORBIDE MONONITRATE 60 MG CR TAB (IMDUR) PO SCH (05:57)
[2017-07-18 06:23] LABS: AUTOMATED NEUTROPHIL # 1.8 TH/MM3 (1.8-7.7); BASOPHIL % 1.1 % (0.0-2.0); EOSINOPHIL % 0.6 % (0.0-4.0); HEMATOCRIT 27.3 % (35.0-46.0); HEMOGLOBIN 9.2 GM/DL (11.6-15.3); LYMPH % 3.2 % (9.0-44.0); LYMPHOCYTE # 0.1 TH/MM3 (1.0-4.8); MEAN CELL VOLUME 83.6 FL (80.0-100.0); MEAN CORPUSCULAR HEMOGLOBIN 28.2 PG (27.0-34.0); MEAN CORPUSCULAR HGB CONC 33.8 % (32.0-36.0); MEAN PLATELET VOLUME 8.1 FL (7.0-11.0); MONO % 16.5 % (0.0-8.0); MONOCYTE # 0.4 TH/MM3 (0-0.9); NEUT % 78.6 % (16.0-70.0); PLATELET COUNT 114 TH/MM3 (150-450); RED BLOOD COUNT 3.26 MIL/MM3 (4.00-5.30); RED CELL DISTRIBUTION WIDTH 18.4 % (11.6-17.2); WHITE BLOOD COUNT 2.3 TH/MM3 (4.0-11.0)
[2017-07-18 06:44] LABS: BICARBONATE 27.8 MEQ/L (21.0-32.0); CALCIUM 9.1 MG/DL (8.5-10.1); CREATININE 1.25 MG/DL (0.50-1.00)
--- NOTE | 2017-07-18 07:42 | HHI.GIFU ---
Subjective Remarks Pt resting in bed Denies nausea, vomiting, abdominal pain Has had BM since procedures yesterday, denies blood Tolerating diet (Angela Eddy) Objective Vitals I&O Vital Signs Date Time Temp Pulse Resp B/P (MAP) Pulse Ox O2 Delivery O2 Flow Rate FiO2 07/18/17 04:58 Room Air 07/18/17 04:27 97.5 60 18 110/61 (77) 98 07/18/17 04:00 60 07/18/17 00:00 60 07/17/17 23:45 97.1 60 18 126/58 (80) 94 07/17/17 20:45 98.1 60 18 125/60 (81) 99 07/17/17 20:00 Room Air 07/17/17 16:04 98.0 60 18 138/63 (88) 98 07/17/17 16:00 Room Air 07/17/17 15:05 15 96 Room Air 07/17/17 15:00 97.5 60 15 123/65 (84) 95 Room Air 07/17/17 14:45 60 14 134/66 (88) 95 Room Air 07/17/17 14:30 97.5 60 12 137/63 (87) 100 Nasal Cannula 3 07/17/17 12:00 Room Air 07/17/17 08:20 97.3 60 18 138/62 (87) 99 07/17/17 08:00 Room Air 07/17/17 07:42 61 I/O 07/17/17 07/17/17 07/17/17 07/18/17 07/18/17 07/18/17 07:00 15:00 23:00 07:00 15:00 23:00 Intake Total 480 ml 300 ml 240 ml 240 ml Output Total 350 ml 500 ml Balance 130 ml 300 ml 240 ml -260 ml Intake Oral 480 ml 240 ml 240 ml Other 300 ml Output Urine Total 350 ml 500 ml # Voids 6 # Bowel Movements 1 3 8 3 Laboratory Laboratory Tests Test 07/17/17 11:25 07/17/17 23:50 07/18/17 06:00 07/18/17 07:20 Blood Urea Nitrogen 27 30 Creatinine 1.04 1.25 Random Glucose 110 138 Calcium Level 8.9 9.1 Sodium Level 133 132 Potassium Level 3.8 4.0 Chloride Level 97 97 Carbon Dioxide Level 29.4 27.8 Anion Gap 7 7 Estimat Glomerular Filtration Rate 53 43 White Blood Count 2.3 2.3 Red Blood Count 3.39 3.26 Hemoglobin 9.7 9.2 Hematocrit 28.3 27.3 Mean Corpuscular Volume 83.6 83.6 Mean Corpuscular Hemoglobin 28.6 28.2 Mean Corpuscular Hemoglobin Concent 34.2 33.8 Red Cell Distribution Width 18.2 18.4 Platelet Count 120 114 Mean Platelet Volume 8.5 8.1 Neutrophils (%) (Auto) 85.5 78.6 Lymphocytes (%) (Auto) 2.9 3.2 Monocytes (%) (Auto) 10.8 16.5 Eosinophils (%) (Auto) 0.2 0.6 Basophils (%) (Auto) 0.6 1.1 Neutrophils # (Auto) 1.9 1.8 Lymphocytes # (Auto) 0.1 0.1 Monocytes # (Auto) 0.2 0.4 Eosinophils # (Auto) 0.0 0.0 Basophils # (Auto) 0.0 0.0 CBC Comment AUTO DIFF AUTO DIFF Differential Total Cells Counted 100 Neutrophils % (Manual) 80 Band Neutrophils % 8 Lymphocytes % 3 Monocytes % 8 Basophils % 1 Neutrophils # (Manual) 2.0 Differential Comment FINAL DIFF MANUAL Platelet Estimate LOW Platelet Morphology Comment NORMAL Ovalocytes 1+ Acanthocytes OCC Date/Time Source Procedure Growth Status 07/16/17 10:13 Fluid Peritoneal Fluid Gram Stain - Final Resulted 07/16/17 10:13 Fluid Peritoneal Fluid Body Fluid Culture - Preliminary NO GROWTH IN 24 HOURS. Resulted 07/15/17 14:00 Stool Stool Stool Occult Blood (JENNIE) - Final HEMOCCULT NEGATIVE Complete Imaging Last Impressions Cyst Biopsy Asp-Paracentesis US 07/16/17 0000 Signed Impressions: Service Date/Time: Sunday, July 16, 2017 08:34 - CONCLUSION: Uncomplicated ultrasound guided paracentesis. Cleveland Tomas MD Abdomen/Pelvis CT 07/15/17 1718 Signed Impressions: Service Date/Time: Saturday, July 15, 2017 01:36 - CONCLUSION: 1. Moderate amount of ascitic fluid is mildly increased from the prior study. 2. Small bilateral pleural effusions are present. 3. Nonobstructing left renal calculus again noted. 4. Abnormal soft tissue density remains in the retroperitoneum not significantly changed. This may represent residual adenopathy versus scarring. Kris Cruz MD Liver Ultrasound 07/13/17 0000 Signed Impressions: Service Date/Time: Thursday, July 13, 2017 14:44 - CONCLUSION: Cirrhosis of liver with some surrounding fluid. The spleen is enlarged. No focal intrahepatic masses identified.. August Acosta MD Chest X-Ray 07/11/17 0000 Signed Impressions: Service Date/Time: Tuesday, July 11, 2017 23:23 - CONCLUSION: No acute cardiopulmonary disease. Kamryn Santamaria MD Physical Exam HEENT: Normocephalic; atraumatic CHEST: Even/unlabored CARDIAC: RRR ABDOMEN: Soft, nondistended, nontender, bowel sounds active EXTREMITIES: BLE edema SKIN: Normal; no rash; no jaundice. MARKER DELIVERY: No focal deficits; alert and oriented times three. (Angela Eddy) Assessment and Plan Plan ASSESSMENT - ascites, abnormal imaging, isolated elevation ALP - unclear etiology. onset ascites 4 months ago, progressing. no significant hx etoh. is currently being bridged with heparin, INR too high currently for paracentesis - anemia - HH stable. microcytic likely multifactorial - hx grade 1 follicular lymphoma oncology following - renal insufficiency, per primary - bradycardia s/p pacemaker, s/p AVR cardiology following (07/14) --> Pt with continued abdominal swelling today. Intermittent pain, none at time of my exam. Some nausea, denies emesis. Liver JUAREZ pending. Paracentesis pending, INR needs to be less than 1.7 for procedure. Coumadin on hold. Pt on Heparin gtt to bridge. Liver US (07/13) noted --> Cirrhosis of liver with some surrounding fluid. Spleen is enlarged. No focal intrahepatic masses identified. Drop in H/H noted today --> 8.8/26.1, no obvious GIB. (07/15) --> S/P CT abdomen and pelvis yesterday --> Moderate amount of ascitic fluid is mildly increased from the prior study. Abnormal soft tissue density remains in the retroperitoneum not significantly changes. This may represent residual adenopathy vs scarring. INR now 1.6. Hepatitis panel negative. GERMAN and ASMA negative. AMA pending. Ferritin-676. AFP-1.1 Alpha-1 antitrypsin-213 Ceruloplasmin pending 2/21/18 hh trending down, admits some dark stools and BRBPR, small amount. Never had colonoscopy, last EGD 2005. going for paracentesis. liver w/u so far unremarkable. Pt also complaining that she is having hard stool requiring digital maneuvers to evacuate. (07/18) --> S/P EGD and colonoscopy yesterday (EGD) --> There was erythematous gastritis in the gastric antrum. Biopsy. Portal hypertensive gastropathy was found int he gastric fundus. Normal duodenal mucosa in the bulb and second portion of the duodenum. (colonoscopy) --> Three ulcers ranging between 3-5 mm in size were found in the rectum. Biopsy. Internal and external hemorrhoids. Of note, pt reports chronic issues with constipation. Discussed importance of a bowel regimen. So far, liver work up negative, only lab pending is Ceruloplasmin. Peritoneal cytology showed scattered mesothelial cells and occasional neutrophils, negative for malignant cells. Peritoneal culture still pending, no growth in 24 hours. SAAG can not be calculated, no albumin day of Paracentesis. PLAN - OK to restart Heparin - Spironolactone - Protonix - Carafate 1gm TID AC - Ceruloplasmin pending - Peritoneal culture pending - Bowel regimen to prevent constipation - Repeat EGD in 6 months - EGD/colon biopsy pending - Further recommendations based on clinical course Pt has been seen and examined by myself and Dr. Villanueva and this note is written on his behalf (Angela Eddy) Physician Comments Seen and examined with INVESTIGATOR VICE, no active bleeding. Biopsies pending. Liver juarez in progress. May need liver biopsy.Monitor labs. (Shawn Villanueva MD) Angela Eddy Jul 18, 2017 07:42 Shawn Villanueva MD Jul 18, 2017 19:17
[2017-07-18 08:02] LABS: INTERNATIONAL NORMALIZED RATIO 1.4 RATIO; PROTHROMBIN TIME - PATIENT 14.3 SEC (9.8-11.6)
[2017-07-18] MEDS: ALLOPURINOL 300 MG TAB PO SCH (08:54)
[2017-07-18] MEDS: PANTOPRAZOLE SOD 20 MG DELAYED RELEASE TAB PO SCH ×2 (08:54→20:57)
[2017-07-18] MEDS: BACLOFEN 20 MG TAB PO SCH ×4 (08:54→20:57)
[2017-07-18] MEDS: DOCUSATE SODIUM 50 MG/SENNA 8.6 MG TAB PO SCH ×2 (08:57→20:57)
[2017-07-18] MEDS: SUCRALFATE 1 GM TAB PO SCH ×3 (08:57→16:37)
[2017-07-18] MEDS: METOPROLOL TARTRATE 25 MG TAB PO SCH (09:00)
[2017-07-18] MEDS: SODIUM CHLORIDE 0.9% FLUSH 10 ML FLUSH IV FLUSH SCH ×2 (09:00→20:57)
[2017-07-18] MEDS: SPIRONOLACTONE 25 MG TAB PO SCH ×2 (09:00→16:37)
[2017-07-18 09:46] LABS: BANDS 10 % (0-6); LYMPHOCYTES 1 % (9-44); MONOCYTES 13 % (0-8); POLYS (SEG NEUTROPHILS) 76 % (16-70)
[2017-07-18 09:47] LABS: OVALOCYTES 1+ (NORMAL)
[2017-07-18 10:13] LABS: AMYLASE BODY FLUID 24 U/L; AMYLASE BODY FLUID TYPE PERITONEAL
--- NOTE | 2017-07-18 12:53 | PD.ONC.PN ---
Subjective Subjective Remarks Afebrile overnight. Patient resting in room. feels like her stomach is full. thinks she needs to have a BM. Objective Data Date Time Temp Pulse Resp B/P (MAP) Pulse Ox O2 Delivery O2 Flow Rate FiO2 07/18/17 12:00 98.0 61 18 108/59 (75) 100 07/18/17 11:54 97 Room Air 07/18/17 08:00 97.8 60 18 98/50 (66) 97 07/18/17 04:58 Room Air 07/18/17 04:27 97.5 60 18 110/61 (77) 98 07/18/17 04:00 60 07/18/17 00:00 60 07/17/17 23:45 97.1 60 18 126/58 (80) 94 07/17/17 20:45 98.1 60 18 125/60 (81) 99 07/17/17 20:00 Room Air 07/17/17 16:04 98.0 60 18 138/63 (88) 98 07/17/17 16:00 Room Air 07/17/17 15:05 15 96 Room Air 07/17/17 15:00 97.5 60 15 123/65 (84) 95 Room Air 07/17/17 14:45 60 14 134/66 (88) 95 Room Air 07/17/17 14:30 97.5 60 12 137/63 (87) 100 Nasal Cannula 3 07/18/17 07/18/17 07/18/17 07:00 15:00 23:00 Intake Total 240 ml Output Total 500 ml Balance -260 ml Result Diagram: 07/18/17 0607/18/17 0600 Laboratory Results Laboratory Tests Test 07/17/17 23:50 07/18/17 06:00 07/18/17 07:20 White Blood Count 2.3 TH/MM3 2.3 TH/MM3 Red Blood Count 3.39 MIL/MM3 3.26 MIL/MM3 Hemoglobin 9.7 GM/DL 9.2 GM/DL Hematocrit 28.3 % 27.3 % Mean Corpuscular Volume 83.6 FL 83.6 FL Mean Corpuscular Hemoglobin 28.6 PG 28.2 PG Mean Corpuscular Hemoglobin Concent 34.2 % 33.8 % Red Cell Distribution Width 18.2 % 18.4 % Platelet Count 120 TH/MM3 114 TH/MM3 Mean Platelet Volume 8.5 FL 8.1 FL Neutrophils (%) (Auto) 85.5 % 78.6 % Lymphocytes (%) (Auto) 2.9 % 3.2 % Monocytes (%) (Auto) 10.8 % 16.5 % Eosinophils (%) (Auto) 0.2 % 0.6 % Basophils (%) (Auto) 0.6 % 1.1 % Neutrophils # (Auto) 1.9 TH/MM3 1.8 TH/MM3 Lymphocytes # (Auto) 0.1 TH/MM3 0.1 TH/MM3 Monocytes # (Auto) 0.2 TH/MM3 0.4 TH/MM3 Eosinophils # (Auto) 0.0 TH/MM3 0.0 TH/MM3 Basophils # (Auto) 0.0 TH/MM3 0.0 TH/MM3 CBC Comment AUTO DIFF AUTO DIFF Differential Total Cells Counted 100 100 Neutrophils % (Manual) 80 % 76 % Band Neutrophils % 8 % 10 % Lymphocytes % 3 % 1 % Monocytes % 8 % 13 % Basophils % 1 % Neutrophils # (Manual) 2.0 TH/MM3 2.0 TH/MM3 Differential Comment FINAL DIFF MANUAL FINAL DIFF MANUAL Platelet Estimate LOW LOW Platelet Morphology Comment NORMAL NORMAL Ovalocytes 1+ 1+ Acanthocytes OCC Blood Urea Nitrogen 30 MG/DL Creatinine 1.25 MG/DL Random Glucose 138 MG/DL Calcium Level 9.1 MG/DL Sodium Level 132 MEQ/L Potassium Level 4.0 MEQ/L Chloride Level 97 MEQ/L Carbon Dioxide Level 27.8 MEQ/L Anion Gap 7 MEQ/L Estimat Glomerular Filtration Rate 43 ML/MIN Prothrombin Time 14.3 SEC Prothromb Time International Ratio 1.4 RATIO Culture Results Microbiology Date/Time Source Procedure Growth Status 07/16/17 10:13 Fluid Peritoneal Fluid Gram Stain - Final Resulted 07/16/17 10:13 Fluid Peritoneal Fluid Body Fluid Culture - Preliminary NO GROWTH IN 48 HOURS. Resulted 07/15/17 14:00 Stool Stool Stool Occult Blood (JENNIE) - Final HEMOCCULT NEGATIVE Complete Administered Medications Medications (Trade) Dose Ordered Sig/Love Route PRN Reason Start Time Stop Time Status Last Admin Dose Admin Sodium Chloride (NS Flush) 2 ml BID IV FLUSH 07/12/17 09:00 07/18/17 09:00 Senna/Docusate Sodium ([place]-Colace) 1 tab BID PO 07/12/17 09:00 07/18/17 08:57 Allopurinol (Zyloprim) 300 mg DAILY PO 07/12/17 09:00 07/18/17 08:54 Baclofen (Lioresal) 20 mg QID PO 07/12/17 09:00 07/18/17 12:37 Montelukast Sodium (Singulair) 10 mg HS PO 07/12/17 21:00 07/17/17 21:30 Tizanidine HCl (Zanaflex) 4 mg HS PO 07/12/17 21:00 07/17/17 21:30 Pantoprazole Sodium (Protonix) 20 mg BID PO 07/12/17 09:00 07/18/17 08:54 Acetaminophen/ Hydrocodone Bitart ([place] 10-325 Mg) 1 tab Q4H PRN PO pain 6-10 07/12/17 21:45 07/17/17 22:10 Acetaminophen/ Hydrocodone Bitart ([place] 5-325 Mg) 1 tab Q4H PRN PO pain 3-5 07/12/17 21:45 07/16/17 13:46 Nitroglycerin (Nitrostat Sl) 0.4 mg Q5M PRN SL CHEST PAIN 07/13/17 03:45 07/13/17 03:56 Metoprolol Tartrate (Lopressor) 12.5 mg Q12HR PO 07/14/17 21:00 07/17/17 21:30 Isosorbide Mononitrate (Imdur) 60 mg DAILY@07 PO 07/15/17 07:00 07/18/17 05:57 Sucralfate (Carafate) 1 gm TIDAC PO 07/17/17 17:00 07/18/17 12:37 Spironolactone (Aldactone) 25 mg BID@18 PO 07/17/17 18:00 07/17/17 18:01 Objective Remarks GENERAL: Middle aged female, upright in chair next to bed in [facility]. SKIN: Warm and dry. HEAD: Normocephalic. EYES: No injection or drainage. NECK: Supple, trachea midline. CARDIOVASCULAR: Regular rate and rhythm RESPIRATORY: Breath sounds equal bilaterally. No accessory muscle use. GASTROINTESTINAL: Abdomen with distension, non-tender. EXTREMITIES: No cyanosis. ble with edema. NEUROLOGICAL: awake and alert, normal speech. moving extremities. Assessment/Plan Problem List: (1) Follicular lymphoma grade I ICD Codes: C82.00 - Follicular lymphoma grade I, unspecified site Plan: Hx/Workup: Patient is status post 3 cycles of chemotherapy with bendamustine and Rituxan completed in March 2017. She continues on maintenance Rituxan and had her last dose in clinic last week. Her course was complicated by coronary artery disease requiring a [facility] [place] aortic valve replacement. -- No evidence to show that she has a progression of her lymphoma (2) Symptomatic bradycardia ICD Codes: R00.1 - Bradycardia, unspecified Plan: -- Cardiology following -- Interrogation of the pacemaker so far shows no malfunction -- Continues to have periodic episodes of symptomatic bradycardia (3) Ascites ICD Codes: R18.8 - Other ascites Plan: --GI following. --unclear etiology --s/p paracentesis, cytology negative for malignant cells. (4) Pancytopenia ICD Codes: D61.818 - Other pancytopenia Plan: Due to cirrhosis and splenomegaly. Hgb trended lower but no evidence of bleeding. --given 1 unit pRBC, 07/16 --s/p panendoscopy on 07/17 which showed rectal ulcers, non-bleeding esophageal varices. Assessment 67 y/o female with history of follicular lymphoma admitted for symptomatic bradycardia h/o atrial fibrillation and valvular heart disease. --received Rituxan 10 days prior to admission. Plan 1. monitor CBC 2. will resume heparin gtt without bolus. Attending Statement The exam, history, and the medical decision-making described in the above note were completed with the assistance of the mid-level provider. I reviewed and agree with the findings presented. I attest that I had a [id number] encounter with the patient on the same day, and personally performed and documented my assessment and findings in the medical record. No abdominal pain. Ascitic fluid cytology negative for malignancy. GI to decide if pt needs liver biopsy. Continue heparin. Hgb trended up with transfusion. Yokasta Andrew Jul 18, 2017 12:53 [address] Mayberry MD Jul 18, 2017 15:17
[2017-07-18 13:34] LABS: HEMATOCRIT 29.6 % (35.0-46.0); HEMOGLOBIN 10.2 GM/DL (11.6-15.3); MEAN CELL VOLUME 83.6 FL (80.0-100.0); MEAN CORPUSCULAR HEMOGLOBIN 28.7 PG (27.0-34.0); MEAN CORPUSCULAR HGB CONC 34.3 % (32.0-36.0); MEAN PLATELET VOLUME 8.3 FL (7.0-11.0); PLATELET COUNT 143 TH/MM3 (150-450); RED BLOOD COUNT 3.54 MIL/MM3 (4.00-5.30); RED CELL DISTRIBUTION WIDTH 18.3 % (11.6-17.2); WHITE BLOOD COUNT 3.5 TH/MM3 (4.0-11.0)
[2017-07-18 13:36] LABS: INTERNATIONAL NORMALIZED RATIO 1.4 RATIO; PROTHROMBIN TIME - PATIENT 14.5 SEC (9.8-11.6)
--- NOTE | 2017-07-18 14:10 | HHI.PR ---
Subjective Remarks no complains of abdominal apin or any bleeding no chest discomfort Objective Vitals Vital Signs Date Time Temp Pulse Resp B/P (MAP) Pulse Ox O2 Delivery O2 Flow Rate FiO2 07/18/17 12:00 98.0 61 18 108/59 (75) 100 07/18/17 11:54 97 Room Air 07/18/17 08:00 97.8 60 18 98/50 (66) 97 07/18/17 04:58 Room Air 07/18/17 04:27 97.5 60 18 110/61 (77) 98 07/18/17 04:00 60 07/18/17 00:00 60 07/17/17 23:45 97.1 60 18 126/58 (80) 94 07/17/17 20:45 98.1 60 18 125/60 (81) 99 07/17/17 20:00 Room Air 07/17/17 16:04 98.0 60 18 138/63 (88) 98 07/17/17 16:00 Room Air 07/17/17 15:05 15 96 Room Air 07/17/17 15:00 97.5 60 15 123/65 (84) 95 Room Air 07/17/17 14:45 60 14 134/66 (88) 95 Room Air 07/17/17 14:30 97.5 60 12 137/63 (87) 100 Nasal Cannula 3 I/O 07/17/17 07/17/17 07/17/17 07/18/17 07/18/17 07/18/17 07:00 15:00 23:00 07:00 15:00 23:00 Intake Total 480 ml 300 ml 240 ml 240 ml Output Total 350 ml 500 ml Balance 130 ml 300 ml 240 ml -260 ml Intake Oral 480 ml 240 ml 240 ml Other 300 ml Output Urine Total 350 ml 500 ml # Voids 6 # Bowel Movements 1 3 8 3 Result Diagram: 07/18/17 1300 07/18/17 0600 Imaging Last Impressions Cyst Biopsy Asp-Paracentesis US 07/16/17 0000 Signed Impressions: Service Date/Time: Sunday, July 16, 2017 08:34 - CONCLUSION: Uncomplicated ultrasound guided paracentesis. Cleveland Tomas MD Abdomen/Pelvis CT 07/15/17 1718 Signed Impressions: Service Date/Time: Dilia, July 15, 2017 01:36 - CONCLUSION: 1. Moderate amount of ascitic fluid is mildly increased from the prior study. 2. Small bilateral pleural effusions are present. 3. Nonobstructing left renal calculus again noted. 4. Abnormal soft tissue density remains in the retroperitoneum not significantly changed. This may represent residual adenopathy versus scarring. Kris Cruz MD Liver Ultrasound 07/13/17 0000 Signed Impressions: Service Date/Time: Thursday, July 13, 2017 14:44 - CONCLUSION: Cirrhosis of liver with some surrounding fluid. The spleen is enlarged. No focal intrahepatic masses identified.. August Acosta MD Chest X-Ray 07/11/17 0000 Signed Impressions: Service Date/Time: Tuesday, July 11, 2017 23:23 - CONCLUSION: No acute cardiopulmonary disease. Kamryn Santamaria MD Objective Remarks awake and alert, no acute distress, interactive anicteric lungs- no rales, no wheezes regular rhythm abdomen- flabby, soft, + soft fluid wave extremities trace edema moves all extremities spontaneously- Procedures 07/17- EGD- severe gastritis. colonoscopy- rectal ulcers A/P Problem List: (1) Symptomatic bradycardia ICD Code: R00.1 - Bradycardia, unspecified (2) Hypotension ICD Code: I95.9 - Hypotension, unspecified Status: Acute (3) Renal insufficiency ICD Code: N28.9 - Disorder of kidney and ureter, unspecified (4) Hypokalemia ICD Code: E87.6 - Hypokalemia (5) Follicular lymphoma grade I ICD Code: C82.00 - Follicular lymphoma grade I, unspecified site (6) History of aortic valve replacement ICD Code: Z95.2 - Presence of prosthetic heart valve Status: Chronic Assessment and Plan 67 years old female Symptomatic Bradycardia with history of chronic atrial fibrillation S/P PM. History of CAD History of AVR with Mechanical Aortic valve Hypotension - borderline : HR 50's at home w/ c/o dizziness, s/p Pacemaker,- device interrogated- no malfunction telemetry- paced rhythm continue on Lopressor 12.5 mg po bid,- decreased to 6.25 mg po bid. aldactone added for ascites Imdur 60 mg daily- decrease to 30 mg daily Heparin + coumadin overlap- coumadin restarted Severe gastritis/rectal ulcers on EGD and colonoscopy PPI. Added carafate 1 gm tid New Onset ascites- likely secondary to malignancy- S/P paracentesis 5.7 L out. on aldactone Acute anemia Follicular Lymphoma Pancytopenia Dr. Mayberry ff S/P RBC transfusion 07/16 Renal Insufficiency: Chronic. Creatinine 1.69, previously 1.97 on 06/17/17, monitor I/O, caution w/ diuresis. ff labs Hypokalemia: corrected PT consult- generalized deconditioning Problem Qualifiers (1) Hypotension: Qualified Codes: I95.9 - Hypotension, unspecified Joseph Wright MD Jul 18, 2017 14:09
[2017-07-18] MEDS: HEPARIN-D5W 25,000 U/250 ML 250 ML IV PRN (14:52)
[2017-07-18 15:52] LABS: CERULOPLASMIN 32 mg/dL (18-53)
[2017-07-18] MEDS: WARFARIN SOD 6 MG TAB PO SCH (16:37)
[2017-07-18] MEDS: MONTELUKAST SODIUM 10 MG TAB PO SCH (20:57)
[2017-07-19] VITALS (10 sets, daily range): BP systolic 100–146; BP diastolic 56–66; PULSE 59–65; RESP 16–20; TEMP 97.1–97.8; O2SAT 97–100
[2017-07-19 04:30] LABS: AUTOMATED NEUTROPHIL # 1.5 TH/MM3 (1.8-7.7); BASOPHIL # 0.1 TH/MM3 (0-0.2); BASOPHIL % 3.3 % (0.0-2.0); EOSINOPHIL # 0.2 TH/MM3 (0-0.4); EOSINOPHIL % 9.6 % (0.0-4.0); HEMATOCRIT 27.6 % (35.0-46.0); HEMOGLOBIN 9.5 GM/DL (11.6-15.3); LYMPH % 4.6 % (9.0-44.0); LYMPHOCYTE # 0.1 TH/MM3 (1.0-4.8); MEAN CORPUSCULAR HEMOGLOBIN 28.6 PG (27.0-34.0); MEAN CORPUSCULAR HGB CONC 34.5 % (32.0-36.0); MEAN PLATELET VOLUME 8.2 FL (7.0-11.0); MONO % 19.6 % (0.0-8.0); MONOCYTE # 0.5 TH/MM3 (0-0.9); NEUT % 62.9 % (16.0-70.0); PLATELET COUNT 114 TH/MM3 (150-450); RED BLOOD COUNT 3.32 MIL/MM3 (4.00-5.30); WHITE BLOOD COUNT 2.4 TH/MM3 (4.0-11.0)
[2017-07-19 04:51] LABS: INTERNATIONAL NORMALIZED RATIO 1.4 RATIO; PROTHROMBIN TIME - PATIENT 13.8 SEC (9.8-11.6)
[2017-07-19] MEDS: HEPARIN-D5W 25,000 U/250 ML 250 ML IV PRN ×2 (05:13→23:39)
[2017-07-19] MEDS: ACETAMINOPHEN/HYDROcodone 325 MG/10 MG TAB PO PRN (05:15)
[2017-07-19] MEDS: ISOSORBIDE MONONITRATE 30 MG CR TAB (IMDUR) PO SCH (05:15)
[2017-07-19 05:33] LABS: BASOPHILS 1 % (0-2); LYMPHOCYTES 3 % (9-44); MONOCYTES 15 % (0-8); NEUTROPHIL # MANUAL DIFF 1.7 TH/MM3 (1.8-7.7); OVALOCYTES 1+ (NORMAL); POLYS (SEG NEUTROPHILS) 69 % (16-70)
[2017-07-19] MEDS: SPIRONOLACTONE 25 MG TAB PO SCH ×3 (09:00→17:51)
[2017-07-19] MEDS: METOPROLOL TARTRATE 25 MG TAB PO SCH ×2 (09:00→20:21)
[2017-07-19] MEDS: SODIUM CHLORIDE 0.9% FLUSH 10 ML FLUSH IV FLUSH SCH ×2 (09:00→20:22)
[2017-07-19] MEDS: SUCRALFATE 1 GM TAB PO SCH ×3 (09:29→16:33)
[2017-07-19] MEDS: BACLOFEN 20 MG TAB PO SCH ×4 (09:30→20:22)
[2017-07-19] MEDS: DOCUSATE SODIUM 50 MG/SENNA 8.6 MG TAB PO SCH ×2 (09:31→20:22)
[2017-07-19] MEDS: PANTOPRAZOLE SOD 20 MG DELAYED RELEASE TAB PO SCH ×2 (09:31→20:21)
[2017-07-19] MEDS: ALLOPURINOL 300 MG TAB PO SCH (09:31)
--- NOTE | 2017-07-19 09:48 | HHI.GIFU ---
Subjective Remarks Resting in the bed eating breakfast Awake and answers questions appropriately States she feels her abdomen may be tightening back up again Afebrile (Rachel Leggett) Objective Vitals I&O Vital Signs Date Time Temp Pulse Resp B/P (MAP) Pulse Ox O2 Delivery O2 Flow Rate FiO2 07/19/17 08:00 97.4 60 16 100/56 (71) 99 07/19/17 08:00 Room Air 96 07/19/17 04:57 97.4 60 18 131/65 (87) 97 07/19/17 04:00 60 07/19/17 00:00 60 07/18/17 23:05 97.4 59 18 152/72 (98) 96 07/18/17 20:08 98.3 60 18 140/63 (88) 100 07/18/17 20:00 Room Air 07/18/17 20:00 60 07/18/17 16:00 97.1 60 18 141/65 (90) 96 07/18/17 16:00 62 07/18/17 12:00 60 07/18/17 12:00 98.0 61 18 108/59 (75) 100 07/18/17 11:54 97 Room Air I/O 07/18/17 07/18/17 07/18/17 07/19/17 07/19/17 07/19/17 07:00 15:00 23:00 07:00 15:00 23:00 Intake Total 240 ml 480 ml 240 ml Output Total 500 ml 450 ml Balance -260 ml 480 ml -210 ml Intake Oral 240 ml 480 ml 240 ml Output Urine Total 500 ml 450 ml # Voids 2 # Bowel Movements 3 1 0 Laboratory Laboratory Tests Test 07/18/17 13:00 07/18/17 19:23 07/19/17 04:14 White Blood Count 3.5 2.4 Red Blood Count 3.54 3.32 Hemoglobin 10.2 9.5 Hematocrit 29.6 27.6 Mean Corpuscular Volume 83.6 83.0 Mean Corpuscular Hemoglobin 28.7 28.6 Mean Corpuscular Hemoglobin Concent 34.3 34.5 Red Cell Distribution Width 18.3 18.0 Platelet Count 143 114 Mean Platelet Volume 8.3 8.2 Prothrombin Time 14.5 13.8 Prothromb Time International Ratio 1.4 1.4 Activated Partial Thromboplast Time 31.4 61.5 109.0 Neutrophils (%) (Auto) 62.9 Lymphocytes (%) (Auto) 4.6 Monocytes (%) (Auto) 19.6 Eosinophils (%) (Auto) 9.6 Basophils (%) (Auto) 3.3 Neutrophils # (Auto) 1.5 Lymphocytes # (Auto) 0.1 Monocytes # (Auto) 0.5 Eosinophils # (Auto) 0.2 Basophils # (Auto) 0.1 CBC Comment AUTO DIFF Differential Total Cells Counted 100 Neutrophils % (Manual) 69 Lymphocytes % 3 Monocytes % 15 Eosinophils % 12 Basophils % 1 Neutrophils # (Manual) 1.7 Differential Comment FINAL DIFF MANUAL Platelet Estimate LOW Platelet Morphology Comment NORMAL Ovalocytes 1+ Date/Time Source Procedure Growth Status 07/16/17 10:13 Fluid Peritoneal Fluid Gram Stain - Final Complete 07/16/17 10:13 Fluid Peritoneal Fluid Body Fluid Culture - Final NO GROWTH IN 72 HRS.--AEROBICALLY OR ... Complete 07/15/17 14:00 Stool Stool Stool Occult Blood (JENNIE) - Final HEMOCCULT NEGATIVE Complete Imaging Last Impressions Cyst Biopsy Asp-Paracentesis US 07/16/17 0000 Signed Impressions: Service Date/Time: Sunday, July 16, 2017 08:34 - CONCLUSION: Uncomplicated ultrasound guided paracentesis. Cleveland Tomas MD Abdomen/Pelvis CT 07/15/17 1718 Signed Impressions: Service Date/Time: Saturday, July 15, 2017 01:36 - CONCLUSION: 1. Moderate amount of ascitic fluid is mildly increased from the prior study. 2. Small bilateral pleural effusions are present. 3. Nonobstructing left renal calculus again noted. 4. Abnormal soft tissue density remains in the retroperitoneum not significantly changed. This may represent residual adenopathy versus scarring. Kris Cruz MD Liver Ultrasound 07/13/17 0000 Signed Impressions: Service Date/Time: Thursday, July 13, 2017 14:44 - CONCLUSION: Cirrhosis of liver with some surrounding fluid. The spleen is enlarged. No focal intrahepatic masses identified.. August Acosta MD Chest X-Ray 07/11/17 0000 Signed Impressions: Service Date/Time: Tuesday, July 11, 2017 23:23 - CONCLUSION: No acute cardiopulmonary disease. Kamryn Santamaria MD Physical Exam HEENT: Normocephalic; atraumatic CHEST: Even/unlabored at rest CARDIAC: Regular, soft systolic murmur ABDOMEN: taut, , mild distention, nontender, bowel sounds active 4 quadrants EXTREMITIES: Discoloration in bilateral lower extremity edema SKIN: Lower extremity skin, edema with blisters; no rash; otherwise pale skin turgor STREET SPRINKLER: No focal deficits; alert and oriented times three. (Rachel Leggett) Assessment and Plan Plan ASSESSMENT/history - ascites, abnormal imaging, isolated elevation ALP - unclear etiology. onset ascites 4 months ago, progressing. no significant hx etoh. is currently being bridged with heparin, Cirrhosis per liver ultrasound, with ascites - anemia - HH stable. microcytic likely multifactorial - hx grade 1 follicular lymphoma oncology following - renal insufficiency, per primary - bradycardia s/p pacemaker, s/p AVR cardiology following Liver US (07/13) noted --> Cirrhosis of liver with some surrounding fluid. Spleen is enlarged. No focal intrahepatic masses identified. 07/[address] abdomen and pelvis--> Moderate amount of ascitic fluid is mildly increased from the prior study. Abnormal soft tissue density remains in the retroperitoneum not significantly changes. pending. Ferritin-676. AFP-1.1 Alpha-1 antitrypsin-213 EGD and colonoscopy 07/17/17 (EGD) --> There was erythematous gastritis in the gastric antrum. Biopsy. Portal hypertensive gastropathy was found int he gastric fundus. Normal duodenal mucosa in the bulb and second portion of the duodenum. (colonoscopy) --> Three ulcers ranging between 3-5 mm in size were found in the rectum. Biopsy. Internal and external hemorrhoids. Of note, pt reports chronic issues with constipation. Discussed importance of a bowel regimen. So far, liver work up negative, only lab pending is Ceruloplasmin. Peritoneal cytology showed scattered mesothelial cells and occasional neutrophils, negative for malignant cells. Peritoneal culture still pending, no growth in 24 hours. SAAG can not be calculated, no albumin day of Paracentesis. Paracentesis, 07/16/17, peritoneal fluid shows amylase 24 WBC count 335, RBC count 2174, neutrophils 12, lymphocytes 16, monocytes 6, mesothelial 34, histocytes 33. Total protein 2.6, albumin 1.6, LDH 71, glucose 138. Labs, GERMAN negative, mitochondrial M2 AB, < 20, anti-smooth muscle antibody negative, hepatitis profile negative Hemoglobin 9.5, INR 1.4 PLAN - Heparin drip for bridge of Coumadin. Coumadin dose given yesterday, monitor PT/INR - Zofran as needed - Spironolactone - Protonix - Carafate 1gm TID - Monitor for any acute bleeding - Monitor labs - Bowel regimen, no BM today 2, - Monitor I&O - Repeat EGD in 6 months - May need liver biopsy - Further recommendations based on clinical course Pt has been seen and examined by myself and Dr. Prakash, note is written on his behalf (Rachel Leggett) Plan Patient was seen and examined, agree with above Notes, we will see oncology input, liver function completely normal at this time, (Donny Prakash MD) Rachel Leggett Jul 19, 2017 09:48 Donny Prakash MD Jul 19, 2017 11:11
--- NOTE | 2017-07-19 13:36 | HHI.PR ---
Subjective Remarks no nausea or vomiting feels abdominal fullness- d/w her that we restarted diuretics- on record- refused- but patient states she is willing to take it Objective Vitals Vital Signs Date Time Temp Pulse Resp B/P (MAP) Pulse Ox O2 Delivery O2 Flow Rate FiO2 07/19/17 12:00 97.1 60 18 120/57 (78) 100 07/19/17 08:00 97.4 60 16 100/56 (71) 99 07/19/17 08:00 Room Air 96 07/19/17 08:00 60 07/19/17 04:57 97.4 60 18 131/65 (87) 97 07/19/17 04:00 60 07/19/17 00:00 60 07/18/17 23:05 97.4 59 18 152/72 (98) 96 07/18/17 20:08 98.3 60 18 140/63 (88) 100 07/18/17 20:00 Room Air 07/18/17 20:00 60 07/18/17 16:00 97.1 60 18 141/65 (90) 96 07/18/17 16:00 62 I/O 07/18/17 07/18/17 07/18/17 07/19/17 07/19/17 07/19/17 07:00 15:00 23:00 07:00 15:00 23:00 Intake Total 240 ml 480 ml 240 ml Output Total 500 ml 450 ml Balance -260 ml 480 ml -210 ml Intake Oral 240 ml 480 ml 240 ml Output Urine Total 500 ml 450 ml # Voids 2 # Bowel Movements 3 1 0 Result Diagram: 07/19/17 0414 07/18/17 0600 Imaging Last Impressions Cyst Biopsy Asp-Paracentesis US 07/16/17 0000 Signed Impressions: Service Date/Time: Sunday, July 16, 2017 08:34 - CONCLUSION: Uncomplicated ultrasound guided paracentesis. Cleveland Tomas MD Abdomen/Pelvis CT 07/15/17 1718 Signed Impressions: Service Date/Time: Saturday, July 15, 2017 01:36 - CONCLUSION: 1. Moderate amount of ascitic fluid is mildly increased from the prior study. 2. Small bilateral pleural effusions are present. 3. Nonobstructing left renal calculus again noted. 4. Abnormal soft tissue density remains in the retroperitoneum not significantly changed. This may represent residual adenopathy versus scarring. Kris Cruz MD Liver Ultrasound 07/13/17 0000 Signed Impressions: Service Date/Time: Thursday, July 13, 2017 14:44 - CONCLUSION: Cirrhosis of liver with some surrounding fluid. The spleen is enlarged. No focal intrahepatic masses identified.. August Acosta MD Chest X-Ray 07/11/17 0000 Signed Impressions: Service Date/Time: Tuesday, July 11, 2017 23:23 - CONCLUSION: No acute cardiopulmonary disease. Kamryn Santamaria MD Objective Remarks awake and alert, no acute distress, interactive anicteric lungs- no rales, no wheezes regular rhythm, abdomen- flabby, soft, + soft fluid wave extremities trace edema moves all extremities spontaneously- Procedures 07/17- EGD- severe gastritis. colonoscopy- rectal ulcers A/P Problem List: (1) Symptomatic bradycardia ICD Code: R00.1 - Bradycardia, unspecified (2) Hypotension ICD Code: I95.9 - Hypotension, unspecified Status: Acute (3) Renal insufficiency ICD Code: N28.9 - Disorder of kidney and ureter, unspecified (4) Hypokalemia ICD Code: E87.6 - Hypokalemia (5) Follicular lymphoma grade I ICD Code: C82.00 - Follicular lymphoma grade I, unspecified site (6) History of aortic valve replacement ICD Code: Z95.2 - Presence of prosthetic heart valve Status: Chronic Assessment and Plan 67 years old female Symptomatic Bradycardia with history of chronic atrial fibrillation S/P PM. History of CAD History of AVR with Mechanical Aortic valve Hypotension - borderline : HR 50's at home w/ c/o dizziness, s/p Pacemaker,- device interrogated- no malfunction telemetry- paced rhythm continue on - LOpressor dosed down to 6.25 mg po bid. - Aldactone added for ascites 25 mg po bid Imdur decrease to 30 mg daily Heparin + coumadin overlap- coumadin restarted Severe gastritis/rectal ulcers on EGD and colonoscopy PPI. Added carafate 1 gm tid New Onset ascites- likely secondary to malignancy- S/P paracentesis 5.7 L out. on aldactone may need periodic paracentesis Acute anemia Follicular Lymphoma Pancytopenia Dr. Mayberry ff S/P RBC transfusion 07/16 Renal Insufficiency: Chronic. Creatinine 1.69, previously 1.97 on 06/17/17, monitor I/O, caution w/ diuresis. ff labs Hypokalemia: corrected History of Allergic rhinitis- requested for her Loratadine to be restarted- HS- start tonite- 07/19 PT consult- generalized deconditioning Problem Qualifiers (1) Hypotension: Qualified Codes: I95.9 - Hypotension, unspecified Joseph Wright MD Jul 19, 2017 13:36
[2017-07-19] MEDS ORDERED: WARFARIN SOD 2 MG TAB PO ONE (16:00)
[2017-07-19] MEDS: WARFARIN SOD 6 MG TAB PO SCH (16:33)
[2017-07-19] MEDS: MONTELUKAST SODIUM 10 MG TAB PO SCH (20:22)
[2017-07-20] VITALS (9 sets, daily range): BP systolic 123–155; BP diastolic 63–71; PULSE 59–62; RESP 16–20; TEMP 97.1–97.9; O2SAT 95–100
[2017-07-20] MEDS: ISOSORBIDE MONONITRATE 30 MG CR TAB (IMDUR) PO SCH (05:41)
[2017-07-20] MEDS: SPIRONOLACTONE 25 MG TAB PO SCH ×2 (08:13→17:04)
[2017-07-20] MEDS: BACLOFEN 20 MG TAB PO SCH ×4 (08:13→20:40)
[2017-07-20] MEDS: DOCUSATE SODIUM 50 MG/SENNA 8.6 MG TAB PO SCH ×2 (08:13→20:40)
[2017-07-20] MEDS: ALLOPURINOL 300 MG TAB PO SCH (08:13)
[2017-07-20] MEDS: PANTOPRAZOLE SOD 20 MG DELAYED RELEASE TAB PO SCH ×2 (08:13→20:40)
[2017-07-20] MEDS: SODIUM CHLORIDE 0.9% FLUSH 10 ML FLUSH IV FLUSH SCH ×2 (08:14→20:40)
[2017-07-20] MEDS: SUCRALFATE 1 GM TAB PO SCH ×3 (08:14→16:03)
[2017-07-20] MEDS: METOPROLOL TARTRATE 25 MG TAB PO SCH ×2 (08:16→20:40)
[2017-07-20] MEDS: ACETAMINOPHEN/HYDROcodone 325 MG/10 MG TAB PO PRN ×2 (08:20→20:40)
[2017-07-20 08:23] LABS: INTERNATIONAL NORMALIZED RATIO 1.4 RATIO; PROTHROMBIN TIME - PATIENT 13.7 SEC (9.8-11.6)
[2017-07-20 08:39] LABS: BICARBONATE 30.6 MEQ/L (21.0-32.0); CALCIUM 9.2 MG/DL (8.5-10.1); CREATININE 1.3 MG/DL (0.50-1.00)
--- NOTE | 2017-07-20 11:14 | HHI.GIFU ---
Subjective Remarks Mild nausea no vomiting Formed stools history of constipation, uses MiraLAX and prune juice at home Afebrile No ABD. Pain (Rachel Leggett) Objective Vitals I&O Vital Signs Date Time Temp Pulse Resp B/P (MAP) Pulse Ox O2 Delivery O2 Flow Rate FiO2 07/20/17 08:00 60 07/20/17 08:00 Room Air 3.00 96 07/20/17 08:00 97.1 60 20 130/63 (85) 99 07/20/17 04:00 97.1 60 20 143/67 (92) 95 07/20/17 03:47 60 07/20/17 00:00 97.4 60 18 123/71 (88) 97 07/19/17 23:07 59 07/19/17 20:19 97.8 62 20 146/66 (92) 100 07/19/17 20:00 Room Air 07/19/17 19:47 65 07/19/17 17:00 60 07/19/17 16:00 97.6 60 18 123/59 (80) 100 07/19/17 12:00 61 07/19/17 12:00 97.1 60 18 120/57 (78) 100 I/O 07/19/17 07/19/17 07/19/17 07/20/17 07/20/17 07/20/17 07:00 15:00 23:00 07:00 15:00 23:00 Intake Total 240 ml 480 ml 1690 ml Output Total 450 ml Balance -210 ml 480 ml 1690 ml Intake Oral 240 ml 480 ml 1440 ml IV Total 250 ml Output Urine Total 450 ml # Voids 6 7 # Bowel Movements 0 Laboratory Laboratory Tests Test 07/19/17 19:40 07/20/17 07:40 Activated Partial Thromboplast Time 47.8 65.1 Prothrombin Time 13.7 Prothromb Time International Ratio 1.4 Blood Urea Nitrogen 29 Creatinine 1.30 Random Glucose 112 Calcium Level 9.2 Sodium Level 130 Potassium Level 3.8 Chloride Level 93 Carbon Dioxide Level 30.6 Anion Gap 6 Estimat Glomerular Filtration Rate 41 Date/Time Source Procedure Growth Status 07/16/17 10:13 Fluid Peritoneal Fluid Gram Stain - Final Complete 07/16/17 10:13 Fluid Peritoneal Fluid Body Fluid Culture - Final NO GROWTH IN 72 HRS.--AEROBICALLY OR ... Complete 07/15/17 14:00 Stool Stool Stool Occult Blood (JENNIE) - Final HEMOCCULT NEGATIVE Complete Imaging Last Impressions Cyst Biopsy Asp-Paracentesis US 07/16/17 0000 Signed Impressions: Service Date/Time: Sunday, July 16, 2017 08:34 - CONCLUSION: Uncomplicated ultrasound guided paracentesis. Cleveland Tomas MD Abdomen/Pelvis CT 07/15/17 1718 Signed Impressions: Service Date/Time: Saturday, July 15, 2017 01:36 - CONCLUSION: 1. Moderate amount of ascitic fluid is mildly increased from the prior study. 2. Small bilateral pleural effusions are present. 3. Nonobstructing left renal calculus again noted. 4. Abnormal soft tissue density remains in the retroperitoneum not significantly changed. This may represent residual adenopathy versus scarring. Kris Cruz MD Liver Ultrasound 07/13/17 0000 Signed Impressions: Service Date/Time: Thursday, July 13, 2017 14:44 - CONCLUSION: Cirrhosis of liver with some surrounding fluid. The spleen is enlarged. No focal intrahepatic masses identified.. August Acosta MD Chest X-Ray 07/11/17 0000 Signed Impressions: Service Date/Time: Tuesday, July 11, 2017 23:23 - CONCLUSION: No acute cardiopulmonary disease. Kamryn Santamaria MD Physical Exam HEENT: Normocephalic; atraumatic CHEST: Even/unlabored at rest CARDIAC: Regular, soft systolic murmur unchanged ABDOMEN: taut but softer , distention improved nontender, bowel sounds active 4 quadrants EXTREMITIES: Discoloration in bilateral lower extremity edema SKIN: Lower extremity skin, edema with blisters; no rash; otherwise pale skin turgor MULTIFOCAL LENS INSPECTOR: No focal deficits; alert and oriented times three. (Rachel Leggett) Assessment and Plan Plan ASSESSMENT/history - ascites, abnormal imaging, isolated elevation ALP - unclear etiology. onset ascites 4 months ago, progressing. , Cirrhosis per liver ultrasound, with ascites - anemia - HH stable. microcytic likely multifactorial - hx grade 1 follicular lymphoma oncology following - renal insufficiency, per primary - bradycardia s/p pacemaker, s/p AVR cardiology following Liver US (07/13) noted --> Cirrhosis of liver with some surrounding fluid. Spleen is enlarged. No focal intrahepatic masses identified. 07/[address] abdomen and pelvis--> Moderate amount of ascitic fluid is mildly increased from the prior study. Abnormal soft tissue density remains in the retroperitoneum not significantly changes. pending. Ferritin-676. AFP-1.1 Alpha-1 antitrypsin-213 EGD and colonoscopy 07/17/17 (EGD) --> There was erythematous gastritis in the gastric antrum. Biopsy. Portal hypertensive gastropathy was found int he gastric fundus. Normal duodenal mucosa in the bulb and second portion of the duodenum. (colonoscopy) --> Three ulcers ranging between 3-5 mm in size were found in the rectum. Biopsy. Internal and external hemorrhoids. Of note, pt reports chronic issues with constipation. Discussed importance of a bowel regimen. So far, liver work up negative, only lab pending is Ceruloplasmin. Peritoneal cytology showed scattered mesothelial cells and occasional neutrophils, negative for malignant cells. Peritoneal culture still pending, no growth in 24 hours. SAAG can not be calculated, no albumin day of Paracentesis. Paracentesis, 07/16/17, peritoneal fluid shows amylase 24 WBC count 335, RBC count 2174, neutrophils 12, lymphocytes 16, monocytes 6, mesothelial 34, histocytes 33. Total protein 2.6, albumin 1.6, LDH 71, glucose 138. Labs, GERMAN negative, mitochondrial M2 AB, < 20, anti-smooth muscle antibody negative, hepatitis profile negative Hemoglobin 9.5, INR 1.4 Constipation, feels stools are getting kelly, last BM 2 days ago. She uses prune juice and MiraLAX at night and would like to continue in the hospital PLAN - Evaluate oncology input - MiraLAX, prune juice daily - Zofran as needed - Spironolactone - Protonix - Carafate 1gm TID - Monitor for any acute bleeding - Monitor labs - Bowel regimen, no BM today 2, - Monitor I&O - Repeat EGD in 6 months - May need liver biopsy - Further recommendations based on clinical course Pt has been seen and examined by myself and Dr. Prakash, note is written on his behalf (Rachel Leggett) Plan Patient was seen and examined, agree with above note, no sign of active bleeding , patient has a cystitis which I don't think this is really related to liver disease with her normal liver function tests and most likely related to cardiac and kidney with possible contribution for liver so multifactorial, liver biopsy could be done if other etiologies for a situs where ruled out (Donny Prakash MD) Rachel Leggett Jul 20, 2017 11:14 Donny Prakash MD Jul 20, 2017 17:06
[2017-07-20] MEDS: POLYETHYLENE GLYCOL 17 GM PKG PO SCH (11:47)
--- NOTE | 2017-07-20 14:16 | HHI.PR ---
Subjective Remarks no complains of pain, nausea or vomiting Objective Vitals Vital Signs Date Time Temp Pulse Resp B/P (MAP) Pulse Ox O2 Delivery O2 Flow Rate FiO2 07/20/17 12:00 97.4 61 20 150/70 (96) 100 07/20/17 12:00 59 07/20/17 08:00 60 07/20/17 08:00 Room Air 3.00 96 07/20/17 08:00 97.1 60 20 130/63 (85) 99 07/20/17 04:00 97.1 60 20 143/67 (92) 95 07/20/17 03:47 60 07/20/17 00:00 97.4 60 18 123/71 (88) 97 07/19/17 23:07 59 07/19/17 20:19 97.8 62 20 146/66 (92) 100 07/19/17 20:00 Room Air 07/19/17 19:47 65 07/19/17 17:00 60 07/19/17 16:00 97.6 60 18 123/59 (80) 100 I/O 07/19/17 07/19/17 07/19/17 07/20/17 07/20/17 07/20/17 07:00 15:00 23:00 07:00 15:00 23:00 Intake Total 240 ml 480 ml 1690 ml Output Total 450 ml Balance -210 ml 480 ml 1690 ml Intake Oral 240 ml 480 ml 1440 ml IV Total 250 ml Output Urine Total 450 ml # Voids 6 7 # Bowel Movements 0 Result Diagram: 07/19/17 0414 07/20/17 0740 Imaging Last Impressions Cyst Biopsy Asp-Paracentesis US 07/16/17 0000 Signed Impressions: Service Date/Time: Sunday, July 16, 2017 08:34 - CONCLUSION: Uncomplicated ultrasound guided paracentesis. Cleveland Tomas MD Abdomen/Pelvis CT 07/15/17 1718 Signed Impressions: Service Date/Time: Saturday, July 15, 2017 01:36 - CONCLUSION: 1. Moderate amount of ascitic fluid is mildly increased from the prior study. 2. Small bilateral pleural effusions are present. 3. Nonobstructing left renal calculus again noted. 4. Abnormal soft tissue density remains in the retroperitoneum not significantly changed. This may represent residual adenopathy versus scarring. Kris Cruz MD Liver Ultrasound 07/13/17 0000 Signed Impressions: Service Date/Time: Thursday, July 13, 2017 14:44 - CONCLUSION: Cirrhosis of liver with some surrounding fluid. The spleen is enlarged. No focal intrahepatic masses identified.. August Acosta MD Chest X-Ray 07/11/17 0000 Signed Impressions: Service Date/Time: Tuesday, July 11, 2017 23:23 - CONCLUSION: No acute cardiopulmonary disease. K. Sharad Santamaria MD Objective Remarks awake and alert, no acute distress, interactive anicteric lungs- no rales, no wheezes regular rhythm, abdomen- flabby, soft, + soft fluid wave extremities trace edema moves all extremities spontaneously- Procedures 07/17- EGD- severe gastritis. colonoscopy- rectal ulcers A/P Problem List: (1) Symptomatic bradycardia ICD Code: R00.1 - Bradycardia, unspecified (2) Hypotension ICD Code: I95.9 - Hypotension, unspecified Status: Acute (3) Renal insufficiency ICD Code: N28.9 - Disorder of kidney and ureter, unspecified (4) Hypokalemia ICD Code: E87.6 - Hypokalemia (5) Follicular lymphoma grade I ICD Code: C82.00 - Follicular lymphoma grade I, unspecified site (6) History of aortic valve replacement ICD Code: Z95.2 - Presence of prosthetic heart valve Status: Chronic Assessment and Plan 67 years old female Symptomatic Bradycardia with history of chronic atrial fibrillation S/P PM. History of CAD History of AVR with Mechanical Aortic valve Hypotension - borderline : HR 50's at home w/ c/o dizziness, s/p Pacemaker,- device interrogated- no malfunction telemetry- paced rhythm continue on - LOpressor 6.25 mg po bid. - Aldactone added for ascites 25 mg po bid Imdur decrease to 30 mg daily Heparin Severe gastritis/rectal ulcers on EGD and colonoscopy PPI. Added carafate 1 gm tid d/w GI - no immediate plan for liver biopsy- will go ahead and start coumadin New Onset ascites- likely secondary to malignancy- S/P paracentesis 5.7 L out. on aldactone. GI ff- may need biopsy liver may need periodic paracentesis Acute anemia Follicular Lymphoma Pancytopenia Dr. Mayberry ff S/P RBC transfusion 07/16 Renal Insufficiency: Chronic. Creatinine 1.69, previously 1.97 on 06/17/17, monitor I/O, caution w/ diuresis. ff labs Hypokalemia: corrected History of Allergic rhinitis- requested for her Loratadine to be restarted- HS- start tonite- 07/19 PT consult- generalized deconditioning Problem Qualifiers (1) Hypotension: Qualified Codes: I95.9 - Hypotension, unspecified Joseph Wright MD Jul 20, 2017 14:16
[2017-07-20] MEDS ORDERED: WARFARIN SOD 1 MG TAB PO ONE (16:00)
[2017-07-20] MEDS: WARFARIN SOD 7.5 MG TAB PO SCH (16:03)
[2017-07-20] MEDS: HEPARIN-D5W 25,000 U/250 ML 250 ML IV PRN (17:11)
[2017-07-20] MEDS: MONTELUKAST SODIUM 10 MG TAB PO SCH (20:40)
[2017-07-20] MEDS: LORATADINE 10 MG TAB PO SCH (21:47)
[2017-07-21] VITALS (12 sets, daily range): BP systolic 100–171; BP diastolic 53–74; PULSE 60–72; RESP 17–20; TEMP 97.3–98.7; O2SAT 95–100
[2017-07-21] MEDS: ACETAMINOPHEN/HYDROcodone 325 MG/10 MG TAB PO PRN ×4 (00:23→18:50)
[2017-07-21] MEDS: ISOSORBIDE MONONITRATE 30 MG CR TAB (IMDUR) PO SCH (06:10)
[2017-07-21 06:57] LABS: HEMATOCRIT 30.6 % (35.0-46.0); HEMOGLOBIN 10.6 GM/DL (11.6-15.3); MEAN CORPUSCULAR HEMOGLOBIN 28.6 PG (27.0-34.0); MEAN CORPUSCULAR HGB CONC 34.5 % (32.0-36.0); MEAN PLATELET VOLUME 8.2 FL (7.0-11.0); PLATELET COUNT 129 TH/MM3 (150-450); RED BLOOD COUNT 3.69 MIL/MM3 (4.00-5.30); RED CELL DISTRIBUTION WIDTH 18.7 % (11.6-17.2); WHITE BLOOD COUNT 2.2 TH/MM3 (4.0-11.0)
[2017-07-21 07:13] LABS: INTERNATIONAL NORMALIZED RATIO 1.7 RATIO; PROTHROMBIN TIME - PATIENT 16.9 SEC (9.8-11.6)
[2017-07-21 07:19] LABS: BICARBONATE 30.1 MEQ/L (21.0-32.0); CALCIUM 9.2 MG/DL (8.5-10.1); CREATININE 1.19 MG/DL (0.50-1.00)
[2017-07-21] MEDS: SODIUM CHLORIDE 0.9% FLUSH 10 ML FLUSH IV FLUSH SCH ×2 (08:56→22:10)
[2017-07-21] MEDS: SUCRALFATE 1 GM TAB PO SCH ×3 (09:00→18:49)
[2017-07-21] MEDS: SPIRONOLACTONE 25 MG TAB PO SCH ×2 (09:00→18:00)
[2017-07-21] MEDS: DOCUSATE SODIUM 50 MG/SENNA 8.6 MG TAB PO SCH ×2 (09:00→22:10)
[2017-07-21] MEDS: PANTOPRAZOLE SOD 20 MG DELAYED RELEASE TAB PO SCH ×2 (09:00→22:11)
[2017-07-21] MEDS: BACLOFEN 20 MG TAB PO SCH ×4 (09:00→22:10)
[2017-07-21] MEDS: ALLOPURINOL 300 MG TAB PO SCH (09:00)
[2017-07-21] MEDS: POLYETHYLENE GLYCOL 17 GM PKG PO SCH (09:00)
[2017-07-21] MEDS: LORATADINE 10 MG TAB PO SCH (09:00)
[2017-07-21] MEDS: METOPROLOL TARTRATE 25 MG TAB PO SCH ×2 (09:01→22:11)
[2017-07-21] MEDS: HEPARIN-D5W 25,000 U/250 ML 250 ML IV PRN (09:44)
--- NOTE | 2017-07-21 10:58 | HHI.GIFU ---
Subjective Remarks Patient laying in bed, seems to be comfortable, no significant new issues, she is complaining of some sore throat she feel that she might have a thyroid issue , no GI complaints Objective Vitals I&O Vital Signs Date Time Temp Pulse Resp B/P (MAP) Pulse Ox O2 Delivery O2 Flow Rate FiO2 07/21/17 08:04 97.7 60 18 156/68 (97) 100 07/21/17 04:00 Room Air 07/21/17 04:00 97.3 60 17 116/55 (75) 95 07/21/17 03:46 60 07/21/17 00:22 Room Air 07/21/17 00:21 98.7 72 20 171/74 (106) 96 07/20/17 23:41 60 07/20/17 20:00 97.9 60 16 152/67 (95) 100 07/20/17 20:00 Room Air 07/20/17 19:46 60 07/20/17 16:00 60 07/20/17 16:00 97.7 62 20 155/67 (96) 100 07/20/17 12:00 97.4 61 20 150/70 (96) 100 07/20/17 12:00 59 I/O 07/20/17 07/20/17 07/20/17 07/21/17 07/21/17 07/21/17 07:00 15:00 23:00 07:00 15:00 23:00 Intake Total 1690 ml 720 ml 850 ml Balance 1690 ml 720 ml 850 ml Intake Oral 1440 ml 720 ml 850 ml IV Total 250 ml # Voids 7 10 10 # Bowel Movements 3 0 Laboratory Laboratory Tests Test 07/21/17 05:10 07/21/17 05:40 Prothrombin Time 16.9 Prothromb Time International Ratio 1.7 Activated Partial Thromboplast Time 74.9 Blood Urea Nitrogen 22 Creatinine 1.19 Random Glucose 123 Calcium Level 9.2 Sodium Level 132 Potassium Level 3.9 Chloride Level 95 Carbon Dioxide Level 30.1 Anion Gap 7 Estimat Glomerular Filtration Rate 45 White Blood Count 2.2 Red Blood Count 3.69 Hemoglobin 10.6 Hematocrit 30.6 Mean Corpuscular Volume 83.0 Mean Corpuscular Hemoglobin 28.6 Mean Corpuscular Hemoglobin Concent 34.5 Red Cell Distribution Width 18.7 Platelet Count 129 Mean Platelet Volume 8.2 Date/Time Source Procedure Growth Status 07/16/17 10:13 Fluid Peritoneal Fluid Gram Stain - Final Complete 07/16/17 10:13 Fluid Peritoneal Fluid Body Fluid Culture - Final NO GROWTH IN 72 HRS.--AEROBICALLY OR ... 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 Assessment and Plan Plan Patient was seen and examined, agree with above note, no sign of active bleeding , patient has ascites which I don't think this is really related to liver disease with her normal liver function tests and most likely related to cardiac and kidney with possible contribution for liver so multifactorial, liver biopsy could be done if other etiologies for a situs where ruled out 07/21/2017, no new complain GI walker, no need for liver biopsy at this time, situs most likely related to cardiac and renal issues We will sign off and follow up as needed Donny Prakash MD Jul 21, 2017 10:58
--- NOTE | 2017-07-21 14:36 | HHI.PR ---
Subjective Remarks no pain complains no idfficulty swallowing- complains of dry throat Objective Vitals Vital Signs Date Time Temp Pulse Resp B/P (MAP) Pulse Ox O2 Delivery O2 Flow Rate FiO2 07/21/17 12:10 97.9 60 18 127/62 (83) 100 07/21/17 08:04 97.7 60 18 156/68 (97) 100 07/21/17 04:00 Room Air 07/21/17 04:00 97.3 60 17 116/55 (75) 95 07/21/17 03:46 60 07/21/17 00:22 Room Air 07/21/17 00:21 98.7 72 20 171/74 (106) 96 07/20/17 23:41 60 07/20/17 20:00 97.9 60 16 152/67 (95) 100 07/20/17 20:00 Room Air 07/20/17 19:46 60 07/20/17 16:00 60 07/20/17 16:00 97.7 62 20 155/67 (96) 100 I/O 07/20/17 07/20/17 07/20/17 07/21/17 07/21/17 07/21/17 07:00 15:00 23:00 07:00 15:00 23:00 Intake Total 1690 ml 720 ml 850 ml Balance 1690 ml 720 ml 850 ml Intake Oral 1440 ml 720 ml 850 ml IV Total 250 ml # Voids 7 10 10 # Bowel Movements 3 0 Result Diagram: 07/21/17 0540 07/21/17 0510 Imaging Last Impressions Cyst Biopsy Asp-Paracentesis US 07/16/17 0000 Signed Impressions: Service Date/Time: Sunday, July 16, 2017 08:34 - CONCLUSION: Uncomplicated ultrasound guided paracentesis. Cleveland Tomas MD Abdomen/Pelvis CT 07/15/17 1718 Signed Impressions: Service Date/Time: Saturday, July 15, 2017 01:36 - CONCLUSION: 1. Moderate amount of ascitic fluid is mildly increased from the prior study. 2. Small bilateral pleural effusions are present. 3. Nonobstructing left renal calculus again noted. 4. Abnormal soft tissue density remains in the retroperitoneum not significantly changed. This may represent residual adenopathy versus scarring. Kris Cruz MD Liver Ultrasound 07/13/17 0000 Signed Impressions: Service Date/Time: Thursday, July 13, 2017 14:44 - CONCLUSION: Cirrhosis of liver with some surrounding fluid. The spleen is enlarged. No focal intrahepatic masses identified.. August Acosta MD Chest X-Ray 07/11/17 0000 Signed Impressions: Service Date/Time: Tuesday, July 11, 2017 23:23 - CONCLUSION: No acute cardiopulmonary disease. Kamryn Santamaria MD Objective Remarks awake and alert, no acute distress, interactive anicteric no thyromegaly lungs- no rales, no wheezes regular rhythm, abdomen- flabby, soft, + soft fluid wave extremities trace edema moves all extremities spontaneously- Procedures 07/17- EGD- severe gastritis. colonoscopy- rectal ulcers A/P Problem List: (1) Symptomatic bradycardia ICD Code: R00.1 - Bradycardia, unspecified (2) Hypotension ICD Code: I95.9 - Hypotension, unspecified Status: Acute (3) Renal insufficiency ICD Code: N28.9 - Disorder of kidney and ureter, unspecified (4) Hypokalemia ICD Code: E87.6 - Hypokalemia (5) Follicular lymphoma grade I ICD Code: C82.00 - Follicular lymphoma grade I, unspecified site (6) History of aortic valve replacement ICD Code: Z95.2 - Presence of prosthetic heart valve Status: Chronic Assessment and Plan 67 years old female Symptomatic Bradycardia with history of chronic atrial fibrillation S/P PM. History of CAD History of AVR with Mechanical Aortic valve Hypotension - borderline : HR 50's at home w/ c/o dizziness, s/p Pacemaker,- device interrogated- no malfunction telemetry- paced rhythm continue on - LOpressor 6.25 mg po bid. - Aldactone added for ascites 25 mg po bid Imdur 30 mg daily Heparin + coumadin overlap- coumadin dosed to 7.5 mg daily Check TSH Severe gastritis/rectal ulcers on EGD and colonoscopy PPI. Added carafate 1 gm tid d/w GI - no immediate plan for liver biopsy- restarted coumadin- ff INR New Onset ascites- likely secondary to malignancy- S/P paracentesis 5.7 L out. on aldactone. GI ff- tolerating well- ff renal functions may need periodic paracentesis Acute anemia Follicular Lymphoma Pancytopenia H and H stable Dr. Mayberry ff S/P RBC transfusion 07/16 Renal Insufficiency: Chronic. Creatinine stable . monitor I/O, caution w/ diuresis. stable on Aldactone Hypokalemia: corrected History of Allergic rhinitis- requested for her Loratadine to be restarted- HS- start tonite- 07/19 PT consult- generalized deconditioning CM- consult for DC planning Home when INR therapeutic- INR 1.7 today Problem Qualifiers (1) Hypotension: Qualified Codes: I95.9 - Hypotension, unspecified Joseph Wright MD Jul 21, 2017 14:36
--- NOTE | 2017-07-21 17:11 | PD.ONC.PN ---
Subjective Subjective Remarks Afebrile Feels sleepy No bleeding Objective Data Date Time Temp Pulse Resp B/P (MAP) Pulse Ox O2 Delivery O2 Flow Rate FiO2 07/21/17 16:14 98.0 60 18 100/53 (69) 99 07/21/17 16:00 Room Air 07/21/17 12:10 97.9 60 18 127/62 (83) 100 07/21/17 12:00 Room Air 07/21/17 08:04 97.7 60 18 156/68 (97) 100 07/21/17 08:00 Room Air 07/21/17 04:00 Room Air 07/21/17 04:00 97.3 60 17 116/55 (75) 95 07/21/17 03:46 60 07/21/17 00:22 Room Air 07/21/17 00:21 98.7 72 20 171/74 (106) 96 07/20/17 23:41 60 07/20/17 20:00 97.9 60 16 152/67 (95) 100 07/20/17 20:00 Room Air 07/20/17 19:46 60 07/21/17 07/21/17 07/21/17 07:00 15:00 23:00 Intake Total 850 ml Balance 850 ml Result Diagram: 07/21/17 0540 07/21/17 0510 Laboratory Results Laboratory Tests Test 07/21/17 05:10 07/21/17 05:40 Prothrombin Time 16.9 SEC Prothromb Time International Ratio 1.7 RATIO Activated Partial Thromboplast Time 74.9 SEC Blood Urea Nitrogen 22 MG/DL Creatinine 1.19 MG/DL Random Glucose 123 MG/DL Calcium Level 9.2 MG/DL Sodium Level 132 MEQ/L Potassium Level 3.9 MEQ/L Chloride Level 95 MEQ/L Carbon Dioxide Level 30.1 MEQ/L Anion Gap 7 MEQ/L Estimat Glomerular Filtration Rate 45 ML/MIN Thyroid Stimulating Hormone 3rd Gen 4.110 uIU/ML White Blood Count 2.2 TH/MM3 Red Blood Count 3.69 MIL/MM3 Hemoglobin 10.6 GM/DL Hematocrit 30.6 % Mean Corpuscular Volume 83.0 FL Mean Corpuscular Hemoglobin 28.6 PG Mean Corpuscular Hemoglobin Concent 34.5 % Red Cell Distribution Width 18.7 % Platelet Count 129 TH/MM3 Mean Platelet Volume 8.2 FL Administered Medications Medications (Trade) Dose Ordered Sig/Love Route PRN Reason Start Time Stop Time Status Last Admin Dose Admin Sodium Chloride (NS Flush) 2 ml BID IV FLUSH 07/12/17 09:00 07/20/17 20:40 Ondansetron HCl (Zofran Inj) 4 mg Q6H PRN IVP NAUSEA OR VOMITING 07/12/17 01:30 07/19/17 02:35 Senna/Docusate Sodium (Cassidy-Colace) 1 tab BID PO 07/12/17 09:00 07/21/17 09:00 Allopurinol (Zyloprim) 300 mg DAILY PO 07/12/17 09:00 07/21/17 09:00 Baclofen (Lioresal) 20 mg QID PO 07/12/17 09:00 07/21/17 13:36 Montelukast Sodium (Singulair) 10 mg HS PO 07/12/17 21:00 07/20/17 20:40 Tizanidine HCl (Zanaflex) 4 mg HS PO 07/12/17 21:00 07/20/17 20:40 Pantoprazole Sodium (Protonix) 20 mg BID PO 07/12/17 09:00 07/21/17 09:00 Acetaminophen/ Hydrocodone Bitart ([place] 10-325 Mg) 1 tab Q4H PRN PO pain 6-10 07/12/17 21:45 07/21/17 11:30 Acetaminophen/ Hydrocodone Bitart ([place] 5-325 Mg) 1 tab Q4H PRN PO pain 3-5 07/12/17 21:45 07/16/17 13:46 Nitroglycerin (Nitrostat Sl) 0.4 mg Q5M PRN SL CHEST PAIN 07/13/17 03:45 07/13/17 03:56 Sucralfate (Carafate) 1 gm TIDAC PO 07/17/17 17:00 07/21/17 13:36 Spironolactone (Aldactone) 25 mg BID@,18 PO 07/17/17 18:00 07/21/17 09:00 Heparin Sodium/ Dextrose 250 ml @ 18 mls/hr TITRATE PRN IV Coagulation Management 07/18/17 13:00 07/21/17 09:44 Metoprolol Tartrate (Lopressor) 6.25 mg Q12HR PO 07/19/17 09:00 07/21/17 09:01 Isosorbide Mononitrate (Imdur) 30 mg DAILY@0700 PO 07/19/17 07:00 07/21/17 06:10 Loratadine (Claritin) 10 mg DAILY PO 07/20/17 21:00 07/21/17 09:00 Polyethylene Glycol (Miralax) 17 gm DAILY PO 07/20/17 11:15 07/21/17 09:00 Warfarin Sodium (Coumadin) 7.5 mg DAILY@16 PO 07/20/17 16:00 07/20/17 16:03 Objective Remarks GENERAL: Middle aged female, asleep in bed on approach in no obvious distress. SKIN: Warm and dry. HEAD: Normocephalic. EYES: No injection or drainage. NECK: Supple, trachea midline. CARDIOVASCULAR: Regular rate and rhythm RESPIRATORY: Breath sounds equal bilaterally. No accessory muscle use. GASTROINTESTINAL: Abdomen with distension, non-tender. EXTREMITIES: No cyanosis. BLE edema with nodules covering. NEUROLOGICAL: Awake and alert, normal speech. Moving extremities. Assessment/Plan Problem List: (1) Follicular lymphoma grade I ICD Codes: C82.00 - Follicular lymphoma grade I, unspecified site Plan: Hx/Workup: Patient is status post 3 cycles of chemotherapy with bendamustine and Rituxan completed in March 2017. She continues on maintenance Rituxan and had her last dose in clinic last week. Her course was complicated by coronary artery disease requiring a [employer] Bao aortic valve replacement. -- No evidence to show that she has a progression of her lymphoma (2) Symptomatic bradycardia ICD Codes: R00.1 - Bradycardia, unspecified Plan: -- Cardiology following -- Interrogation of the pacemaker so far shows no malfunction -- Continues to have periodic episodes of symptomatic bradycardia (3) Ascites ICD Codes: R18.8 - Other ascites Plan: --GI following. --unclear etiology --s/p paracentesis, cytology negative for malignant cells. (4) Pancytopenia ICD Codes: D61.818 - Other pancytopenia Plan: Due to cirrhosis and splenomegaly. Hgb trended lower but no evidence of bleeding. --given 1 unit pRBC, 07/16 --s/p panendoscopy on 07/17 which showed rectal ulcers, non-bleeding esophageal varices. Assessment 67 y/o female with history of follicular lymphoma admitted for symptomatic bradycardia h/o atrial fibrillation and valvular heart disease. --received Rituxan 10 days prior to admission. Plan 1. Continue heparin - coumadin bridge. 2. OK for d/c when INR therapeutic. 3. Monitor periodic CBC Attending Statement The exam, history, and the medical decision-making described in the above note were completed with the assistance of the mid-level provider. I reviewed and agree with the findings presented. I attest that I had a [id number] encounter with the patient on the same day, and personally performed and documented my assessment and findings in the medical record. No abdominal pain. Pancytopenia stable. Continue bridging to coumadin. Jaz Cody Jul 21, 2017 17:11 Lane Mayberry MD Jul 21, 2017 20:01
[2017-07-21] MEDS: WARFARIN SOD 7.5 MG TAB PO SCH (18:50)
[2017-07-21] MEDS: NITROGLYCERIN 0.4 MG SL 25 TABS/BTL SL PRN (18:50)
[2017-07-21] MEDS: MONTELUKAST SODIUM 10 MG TAB PO SCH (22:11)
[2017-07-22] VITALS: BP 118/57; PULSE 60; RESP 20; TEMP 97.6; O2SAT 99
[2017-07-22 04:00] VITALS: BP 98/54; PULSE 60; RESP 18; TEMP 98; O2SAT 95
[2017-07-22 04:10] VITALS: PULSE 62
[2017-07-22] MEDS: HEPARIN-D5W 25,000 U/250 ML 250 ML IV PRN (04:54)
[2017-07-22] MEDS: ISOSORBIDE MONONITRATE 30 MG CR TAB (IMDUR) PO SCH (06:11)
[2017-07-22 06:48] LABS: HEMATOCRIT 28.6 % (35.0-46.0); HEMOGLOBIN 9.9 GM/DL (11.6-15.3); MEAN CELL VOLUME 83.5 FL (80.0-100.0); MEAN CORPUSCULAR HEMOGLOBIN 28.9 PG (27.0-34.0); MEAN CORPUSCULAR HGB CONC 34.7 % (32.0-36.0); MEAN PLATELET VOLUME 8.2 FL (7.0-11.0); PLATELET COUNT 121 TH/MM3 (150-450); RED BLOOD COUNT 3.42 MIL/MM3 (4.00-5.30); RED CELL DISTRIBUTION WIDTH 18.5 % (11.6-17.2); WHITE BLOOD COUNT 1.8 TH/MM3 (4.0-11.0)
[2017-07-22 06:57] LABS: INTERNATIONAL NORMALIZED RATIO 2.3 RATIO; PROTHROMBIN TIME - PATIENT 23.7 SEC (9.8-11.6)
[2017-07-22 08:00] VITALS: BP 105/51; PULSE 60; RESP 18; TEMP 97.8; O2SAT 99
[2017-07-22] MEDS: SUCRALFATE 1 GM TAB PO SCH ×2 (08:00→13:11)
[2017-07-22] MEDS: METOPROLOL TARTRATE 25 MG TAB PO SCH (08:57)
[2017-07-22] MEDS: PANTOPRAZOLE SOD 20 MG DELAYED RELEASE TAB PO SCH (08:57)
[2017-07-22] MEDS: SPIRONOLACTONE 25 MG TAB PO SCH (08:57)
[2017-07-22] MEDS: DOCUSATE SODIUM 50 MG/SENNA 8.6 MG TAB PO SCH (08:57)
[2017-07-22] MEDS: ALLOPURINOL 300 MG TAB PO SCH (08:57)
[2017-07-22] MEDS: SODIUM CHLORIDE 0.9% FLUSH 10 ML FLUSH IV FLUSH SCH (08:58)
[2017-07-22] MEDS: POLYETHYLENE GLYCOL 17 GM PKG PO SCH (08:58)
[2017-07-22] MEDS: LORATADINE 10 MG TAB PO SCH (08:58)
[2017-07-22] MEDS: BACLOFEN 20 MG TAB PO SCH ×2 (09:05→13:11)
--- NOTE | 2017-07-22 11:35 | HHI.DS ---
Discharge Summary Admission Date Jul 16, 2017 at 11:52 Discharge Date: Jul 22, 2017 Admitting Diagnosis PPM malfunction (1) Symptomatic bradycardia ICD Code: R00.1 - Bradycardia, unspecified (2) Hypotension ICD Code: I95.9 - Hypotension, unspecified Status: Acute (3) Renal insufficiency ICD Code: N28.9 - Disorder of kidney and ureter, unspecified (4) Hypokalemia ICD Code: E87.6 - Hypokalemia (5) Follicular lymphoma grade I ICD Code: C82.00 - Follicular lymphoma grade I, unspecified site (6) History of aortic valve replacement ICD Code: Z95.2 - Presence of prosthetic heart valve Status: Chronic Procedures 07/17- EGD- severe gastritis. colonoscopy- rectal ulcers Brief History - From Admission This is a 67-year-old female with a PMH of Depression, Bradycardia, s/p St. Bao Pacemaker, H/o AVR, Follicular Lymphoma, CHF (Echo 01/31/17 w/ EF 40-45%), h/ o CVA and Chronic Anticoagulation who presented to the ER w/ complaints of low BP at home of 70/51. States she's been having episodes of low blood pressure for which she's been following w/ her [facility], Dr. Buitrago. Seen in office approx 2wks ago and states Cozaar discontinued. Tonight, had c/o dizziness, felt "flushed", took her BP and noted low blood pressure and low heart rate in the 50's. Denies chest pain, cough or SOB. On arrival, BP 150/55, HR 60, O2 sat 95% on RA, Afebrile. WBC 1.8. Hemoglobin 8.6. Platelets 1:15, stable in comparison to previous labs from 06/17/17. K+ 2.9. Creatinine 1.69, previously 1.97 I-123 18. Troponin negative. CXR with no acute findings. CBC/BMP: 07/22/17 0610 07/21/17 0510 Significant Findings Laboratory Tests Test 07/19/17 19:40 07/20/17 07:40 07/21/17 05:10 07/21/17 05:40 Activated Partial Thromboplast Time 47.8 SEC (24.3-30.1) 65.1 SEC (24.3-30.1) 74.9 SEC (24.3-30.1) Prothrombin Time 13.7 SEC (9.8-11.6) 16.9 SEC (9.8-11.6) Blood Urea Nitrogen 29 MG/DL (7-18) 22 MG/DL (7-18) Creatinine 1.30 MG/DL (0.50-1.00) 1.19 MG/DL (0.50-1.00) Random Glucose 112 MG/DL (74-106) 123 MG/DL (74-106) Sodium Level 130 MEQ/L (136-145) 132 MEQ/L (136-145) Chloride Level 93 MEQ/L (98-107) 95 MEQ/L (98-107) Estimat Glomerular Filtration Rate 41 ML/MIN (>89) 45 ML/MIN (>89) Thyroid Stimulating Hormone 3rd Gen 4.110 uIU/ML (0.358-3.740) White Blood Count 2.2 TH/MM3 (4.0-11.0) Red Blood Count 3.69 MIL/MM3 (4.00-5.30) Hemoglobin 10.6 GM/DL (11.6-15.3) Hematocrit 30.6 % (35.0-46.0) Red Cell Distribution Width 18.7 % (11.6-17.2) Platelet Count 129 TH/MM3 (150-450) Test 07/22/17 06:10 White Blood Count 1.8 TH/MM3 (4.0-11.0) Red Blood Count 3.42 MIL/MM3 (4.00-5.30) Hemoglobin 9.9 GM/DL (11.6-15.3) Hematocrit 28.6 % (35.0-46.0) Red Cell Distribution Width 18.5 % (11.6-17.2) Platelet Count 121 TH/MM3 (150-450) Prothrombin Time 23.7 SEC (9.8-11.6) Activated Partial Thromboplast Time 59.0 SEC (24.3-30.1) Imaging Last Impressions Cyst Biopsy Asp-Paracentesis US 07/16/17 0000 Signed Impressions: Service Date/Time: Sunday, July 16, 2017 08:34 - CONCLUSION: Uncomplicated ultrasound guided paracentesis. Cleveland Tomas MD Abdomen/Pelvis CT 07/15/17 1718 Signed Impressions: Service Date/Time: Saturday, July 15, 2017 01:36 - CONCLUSION: 1. Moderate amount of ascitic fluid is mildly increased from the prior study. 2. Small bilateral pleural effusions are present. 3. Nonobstructing left renal calculus again noted. 4. Abnormal soft tissue density remains in the retroperitoneum not significantly changed. This may represent residual adenopathy versus scarring. Kris Cruz MD Liver Ultrasound 07/13/17 0000 Signed Impressions: Service Date/Time: Thursday, July 13, 2017 14:44 - CONCLUSION: Cirrhosis of liver with some surrounding fluid. The spleen is enlarged. No focal intrahepatic masses identified.. August Acosta MD Chest X-Ray 07/11/17 0000 Signed Impressions: Service Date/Time: Tuesday, July 11, 2017 23:23 - CONCLUSION: No acute cardiopulmonary disease. Kamryn Santamaria MD PE at Discharge awake and alert, no acute distress, interactive anicteric no thyromegaly lungs- no rales, no wheezes regular rhythm, abdomen- flabby, soft, + soft fluid wave extremities trace edema moves all extremities spontaneously- Hospital Course 67 years old female Symptomatic Bradycardia with history of chronic atrial fibrillation S/P PM. History of CAD History of AVR with Mechanical Aortic valve Hypotension - borderline : HR 50's at home w/ c/o dizziness, s/p Pacemaker,- device interrogated- no malfunction telemetry- paced rhythm continue on - LOpressor 6.25 mg po bid. - Aldactone added for ascites 25 mg po bid Imdur 30 mg daily Heparin + coumadin overlap- coumadin dosed to 7.5 mg daily Check TSH Severe gastritis/rectal ulcers on EGD and colonoscopy PPI. Added carafate 1 gm tid d/w GI - no immediate plan for liver biopsy- restarted coumadin- ff INR New Onset ascites- likely secondary to malignancy- S/P paracentesis 5.7 L out. on aldactone. GI ff- tolerating well- ff renal functions may need periodic paracentesis Acute anemia Follicular Lymphoma Pancytopenia H and H stable Dr. Chew ff S/P RBC transfusion 07/16 Renal Insufficiency: Chronic. Creatinine stable . monitor I/O, caution w/ diuresis. stable on Aldactone Hypokalemia: corrected History of Allergic rhinitis- requested for her Loratadine to be restarted- HS- started - 07/19 PT consult- generalized deconditioning CM- consult for DC planning INR therapeutic- INR 2.3 today Patient improved. She is discharged home with home health in stable condition. To follow-up as outpatient with PCP and consultants Pt Condition on Discharge: Stable Discharge Disposition: Disch w/ Home Health Serv Discharge Time: > 30 minutes Discharge Instructions DIET: Follow Instructions for: Heart Healthy Diet Activities you can perform: Regular-No Restrictions Follow up Referrals: Cardiology - 1 Week Cardiology PCP Follow-up - 2-3 Days PCP Follow-up SNF[facility]/ with [facility] New Medications: Hydrocodone-Acetaminophen ([place]) 5 Mg-325 Mg Tab 1 TAB PO Q6H PRN for PAIN, #15 TAB 0 Refills Isosorbide Mononitrate ER (Isosorbide Mononitrate ER) 30 Mg Gema 30 MG PO DAILY@0700 for Blood Pressure Management, #30 TAB Metoprolol Tartrate (Metoprolol Tartrate) 25 Mg Tab 6.25 MG PO Q12HR for Blood Pressure Management, #60 TAB Spironolactone (Aldactone) 25 Mg Tab 25 MG PO BID@09,18 for Blood Pressure Management, #30 TAB Warfarin (Coumadin) 5 Mg Tab 5 MG PO DAILY@1600 for Blood Clot Prevention, #30 TAB Continued Medications: Allopurinol (Allopurinol) 300 Mg Tab 300 MG PO DAILY for Gout, #30 TAB 0 Refills Baclofen (Baclofen) 20 Mg Tab 20 MG PO QID for Muscle Spasm, TAB 0 Refills Cholecalciferol (Vitamin D3) 2,000 Unit Cap 2000 UNITS PO DAILY for Nutritional Supplement, #1 BOTTLE 0 Refills Furosemide (Lasix) 40 Mg Tab 40 MG PO DAILY, #30 TAB 0 Refills Losartan (Cozaar) 25 Mg Tab 25 MG PO DAILY for Blood Pressure Management, #30 TAB 0 Refills Lovastatin (Lovastatin) 10 Mg Tab 10 MG PO 2XWEEK for Cholesterol Management, #30 TAB 0 Refills Magnesium Oxide (Magnesium) 400 Mg Tablet 1 TAB PO BID Montelukast (Singulair) 10 Mg Tab 10 MG PO HS, #30 TAB 0 Refills Nitroglycerin SL (Nitroglycerin SL) 0.4 Mg Subl 0.4 MG SL DIRECTED PRN for CHEST PAIN, #100 TAB.SL 0 Refills ONE TABLET UNDER THE TONGUE NEEDED FOR CHEST PAIN, REPEAT EVERY 5 MINS FOR A TOTAL OF 3 DOSES OR CALL 911 IF NO RELIEF Omeprazole (Omeprazole) 20 Mg Tab 20 MG PO BID, #30 TAB 0 Refills Ondansetron HCl (Ondansetron HCl) 4 Mg Tab 4 MG PO BID Potassium Chloride ER (Potassium Chloride ER) 20 Meq Tab 20 MEQ PO DAILY for Electrolyte Replacement, #30 TAB 0 Refills Tizanidine (Tizanidine) 4 Mg Tab 4 MG PO HS for Muscle Spasm, TAB 0 Refills Discontinued Medications: Isosorbide Mononitrate ER (Isosorbide Mononitrate ER) 60 Mg Tab 60 MG PO DAILY@07 for chest pain, #30 TAB Metoprolol Tartrate (Metoprolol Tartrate) 25 Mg Tab 12.5 MG PO BID, #60 TAB 0 Refills Warfarin (Warfarin) 6 Mg Tab 6 MG PO DAILY for Blood Clot Prevention, #30 TAB 0 Refills Warfarin (Warfarin) 6 Mg Tab 12 MG PO Q4D for Blood Clot Prevention, #30 TAB 0 Refills Alisson Alvarado MD Jul 22, 2017 11:35
--- NOTE | 2017-07-22 11:36 | HHI.FF ---
Face to Face Verification Diagnosis: (1) History of aortic valve replacement (2) History of mechanical aortic valve replacement (3) Pancytopenia (4) Chronic atrial fibrillation (5) Hypotension (6) CAD (coronary artery disease) (7) Permanent atrial fibrillation (8) Pacemaker (9) SAGE (acute kidney injury) (10) Follicular lymphoma grade I (11) Symptomatic bradycardia Physical Therapy Order: Evaluate and Treat Home Health Nursing Order: Medical education Signs/symptoms of disease process Medication education-adverse effect Nursing assessment with vital signs I have seen patient Radha Bertrand on 07/22/17. My clinical findings support the need for the requested home health care services because: Ltd mobility - disease progression I certify that my clinical findings support that this patient is homebound because: Post-op weakness Alisson Alvarado MD Jul 22, 2017 11:36
[2017-07-22] MEDS ORDERED: SPIR25 PO (11:40)
[2017-07-22] MEDS ORDERED: COUM5TAB PO (11:40)
[2017-07-22] MEDS ORDERED: ISOS30TA3 PO (11:40)
[2017-07-22] MEDS ORDERED: METO25TA3 PO (11:40)
[2017-07-22 12:00] VITALS: BP 127/58; PULSE 60; PULSE 66; RESP 17; TEMP 97.6; O2SAT 100
[2017-07-22] MEDS: ACETAMINOPHEN/HYDROcodone 325 MG/5 MG TAB PO PRN (13:11)
[2017-07-22] MEDS ORDERED: NORC5TAB PO (13:41)
--- NOTE | 2017-07-22 13:59 | PD.ONC.PN ---
Subjective Subjective Remarks Afebrile overnight. Patient wants to go home. states she is tired of being in the hospital. no complaints. Objective Data Date Time Temp Pulse Resp B/P (MAP) Pulse Ox O2 Delivery O2 Flow Rate FiO2 07/22/17 08:00 97.8 60 18 105/51 (69) 99 07/22/17 04:10 62 07/22/17 04:00 98.0 60 18 98/54 (69) 95 07/22/17 00:00 97.6 60 20 118/57 (77) 99 07/21/17 23:54 60 07/21/17 20:22 60 07/21/17 20:00 97.4 60 19 135/67 (89) 100 07/21/17 20:00 Room Air 07/21/17 16:14 98.0 60 18 100/53 (69) 99 07/21/17 16:00 Room Air 07/21/17 15:55 60 07/22/17 07/22/17 07/22/17 07:00 15:00 23:00 Intake Total 240 ml Output Total 1300 ml Balance -1060 ml Result Diagram: 07/22/17 0610 07/21/17 0510 Laboratory Results Laboratory Tests Test 07/22/17 06:10 White Blood Count 1.8 TH/MM3 Red Blood Count 3.42 MIL/MM3 Hemoglobin 9.9 GM/DL Hematocrit 28.6 % Mean Corpuscular Volume 83.5 FL Mean Corpuscular Hemoglobin 28.9 PG Mean Corpuscular Hemoglobin Concent 34.7 % Red Cell Distribution Width 18.5 % Platelet Count 121 TH/MM3 Mean Platelet Volume 8.2 FL Prothrombin Time 23.7 SEC Prothromb Time International Ratio 2.3 RATIO Activated Partial Thromboplast Time 59.0 SEC Administered Medications Medications (Trade) Dose Ordered Sig/Love Route PRN Reason Start Time Stop Time Status Last Admin Dose Admin Sodium Chloride (NS Flush) 2 ml BID IV FLUSH 07/12/17 09:00 07/22/17 08:58 Ondansetron HCl (Zofran Inj) 4 mg Q6H PRN IVP NAUSEA OR VOMITING 07/12/17 01:30 07/19/17 02:35 Acetaminophen (Tylenol) 650 mg Q6H PRN PO FEVER/PAIN SCALE 1 TO 2 07/12/17 01:30 07/22/17 06:10 Senna/Docusate Sodium (Cassidy-Colace) 1 tab BID PO 07/12/17 09:00 07/22/17 08:57 Allopurinol (Zyloprim) 300 mg DAILY PO 07/12/17 09:00 07/22/17 08:57 Baclofen (Lioresal) 20 mg QID PO 07/12/17 09:00 07/22/17 13:11 Montelukast Sodium (Singulair) 10 mg HS PO 07/12/17 21:00 07/21/17 22:11 Tizanidine HCl (Zanaflex) 4 mg HS PO 07/12/17 21:00 07/21/17 22:11 Pantoprazole Sodium (Protonix) 20 mg BID PO 07/12/17 09:00 07/22/17 08:57 Acetaminophen/ Hydrocodone Bitart ([place] 10-325 Mg) 1 tab Q4H PRN PO pain 6-10 07/12/17 21:45 07/21/17 18:50 Acetaminophen/ Hydrocodone Bitart ([place] 5-325 Mg) 1 tab Q4H PRN PO pain 3-5 07/12/17 21:45 07/22/17 13:11 Nitroglycerin (Nitrostat Sl) 0.4 mg Q5M PRN SL CHEST PAIN 07/13/17 03:45 07/21/17 18:50 Sucralfate (Carafate) 1 gm TIDAC PO 07/17/17 17:00 07/22/17 13:11 Spironolactone (Aldactone) 25 mg BID@ PO 07/17/17 18:00 07/22/17 08:57 Metoprolol Tartrate (Lopressor) 6.25 mg Q12HR PO 07/19/17 09:00 07/22/17 08:57 Isosorbide Mononitrate (Imdur) 30 mg DAILY@0700 PO 07/19/17 07:00 07/22/17 06:11 Loratadine (Claritin) 10 mg DAILY PO 07/20/17 21:00 07/22/17 08:58 Polyethylene Glycol (Miralax) 17 gm DAILY PO 07/20/17 11:15 07/22/17 08:58 Objective Remarks GENERAL: elderly female, sitting up in bed in nad. SKIN: Warm and dry. HEAD: Normocephalic. EYES: No injection or drainage. NECK: Supple, trachea midline. CARDIOVASCULAR: Regular rate and rhythm RESPIRATORY: Breath sounds equal bilaterally. No accessory muscle use. GASTROINTESTINAL: Abdomen with distension, non-tender. EXTREMITIES: No cyanosis. NEUROLOGICAL: awake and alert, no focal deficit. Assessment/Plan Problem List: (1) Follicular lymphoma grade I ICD Codes: C82.00 - Follicular lymphoma grade I, unspecified site Plan: --follow up in clinic for monitoring. Hx/Workup: Patient is status post 3 cycles of chemotherapy with bendamustine and Rituxan completed in March 2017. She continues on maintenance Rituxan and had her last dose in clinic last week. Her course was complicated by coronary artery disease requiring a [employer] Bao aortic valve replacement. (2) Ascites ICD Codes: R18.8 - Other ascites Plan: --GI following. --unclear etiology --s/p paracentesis, cytology negative for malignant cells. (3) Pancytopenia ICD Codes: D61.818 - Other pancytopenia Plan: Due to cirrhosis and splenomegaly. Hgb trended lower but no evidence of bleeding. --given 1 unit pRBC, 07/16 --s/p panendoscopy on 07/17 which showed rectal ulcers, non-bleeding esophageal varices. Assessment 67 y/o female with history of follicular lymphoma admitted for symptomatic bradycardia h/o atrial fibrillation and valvular heart disease. --received Rituxan 10 days prior to admission. Plan 1. stop heparin, continue coumadin 2. clear for discharge. Attending Statement The exam, history, and the medical decision-making described in the above note were completed with the assistance of the mid-level provider. I reviewed and agree with the findings presented. I attest that I had a [id number] encounter with the patient on the same day, and personally performed and documented my assessment and findings in the medical record. Feels congested this am. No bleeding. CBC stable. INR therapeutic, stop heparin. Continue supportive care. Yokasta Andrew Jul 22, 2017 13:59 [address] Mayberry MD Jul 22, 2017 14:07
[2017-07-22] MEDS ORDERED: WARFARIN SOD 5 MG TAB PO SCH (16:00)
[2017-07-23] MEDS ORDERED: METO5TAB3 PO (20:23)
[2017-07-23] MEDS ORDERED: BUME2TAB PO (20:23)
== END 2017-07-22 16:08 | disposition home health service (06) | DRG 808 ==
LOC: NEPE 22:15 → NEDH 07-12 01:15 → HCIS 07-12 06:17 → N04A 07-15 18:36 → OBSVTOIN 07-16 11:52
PROVIDERS: ADMIT Hospitalist; ATTEND Hospitalist
PROC: 0W9G3ZZ Drainage of Peritoneal Cavity, Percutaneous Approach (ICD-10-PCS; principal; 2017-07-16)
PROC: 30233N1 Transfusion of Nonautologous Red Blood Cells into Peripheral Vein, Percutaneous Approach (ICD-10-PCS; 2017-07-16)
PROC: 0DB78ZX Excision of Stomach, Pylorus, Via Natural or Artificial Opening Endoscopic, Diagnostic (ICD-10-PCS; 2017-07-17)
PROC: 0DBP8ZX Excision of Rectum, Via Natural or Artificial Opening Endoscopic, Diagnostic (ICD-10-PCS; 2017-07-17)
DX: D61.818 Other pancytopenia (principal); K29.01 Acute gastritis with bleeding; I11.0 Hypertensive heart disease with heart failure; C82.03 Follicular lymphoma grade I, intra-abdominal lymph nodes; I85.10 Secondary esophageal varices without bleeding; I95.9 Hypotension, unspecified; I25.82 Chronic total occlusion of coronary artery; I50.9 Heart failure, unspecified; R18.8 Other ascites; K62.5 Hemorrhage of anus and rectum; K76.6 Portal hypertension; K62.6 Ulcer of anus and rectum; R00.1 Bradycardia, unspecified; G35 Multiple sclerosis; K72.90 Hepatic failure, unspecified without coma; N28.9 Disorder of kidney and ureter, unspecified; E87.6 Hypokalemia; I25.118 Atherosclerotic heart disease of native coronary artery with other forms of angina pectoris; I48.2 Chronic atrial fibrillation; K21.9 Gastro-esophageal reflux disease without esophagitis; K74.60 Unspecified cirrhosis of liver; J44.9 Chronic obstructive pulmonary disease, unspecified; E11.9 Type 2 diabetes mellitus without complications; I25.119 Atherosclerotic heart disease of native coronary artery with unspecified angina pectoris; E78.5 Hyperlipidemia, unspecified; K31.89 Other diseases of stomach and duodenum; K64.4 Residual hemorrhoidal skin tags; K62.89 Other specified diseases of anus and rectum; K64.8 Other hemorrhoids; K59.00 Constipation, unspecified; E86.0 Dehydration; R16.1 Splenomegaly, not elsewhere classified; J30.9 Allergic rhinitis, unspecified; M10.9 Gout, unspecified; F32.9 Major depressive disorder, single episode, unspecified; Z79.01 Long term (current) use of anticoagulants; Z85.820 Personal history of malignant melanoma of skin; Z86.73 Personal history of transient ischemic attack (TIA), and cerebral infarction without residual deficits; Z90.710 Acquired absence of both cervix and uterus; Z90.721 Acquired absence of ovaries, unilateral; Z95.0 Presence of cardiac pacemaker; Z95.2 Presence of prosthetic heart valve; Z92.21 Personal history of antineoplastic chemotherapy; Z88.1 Allergy status to other antibiotic agents; Z88.6 Allergy status to analgesic agent; Z88.5 Allergy status to narcotic agent; Z88.0 Allergy status to penicillin; Z91.030 Bee allergy status; Z98.1 Arthrodesis status
CPT/HCPCS: 36430; 49083; 71046; 74176; 76705; 80048; 80053; 80074; 81001; 82042; 82103; 82105; 82150; 82272; 82390; 82550; 82728; 82945; 83520; 83540; 83550; 83615; 83690; 83735; 83880; 84155; 84157; 84443; 84484; 85007; 85025; 85027; 85044; 85610; 85730; 86038; 86255; 86850; 86900; 86901; 86920; 87070; 87205; 88112; 88305; 88312; 89051; 93005; 93306; 96361; 96365; 96366; C1729; G0378; J0330; J1100; J1644; J2405; J3010; J3480; J7030; J7050; P9016

== ENCOUNTER 2017-07-23 16:51 | Inpatient (IN) | payer OTHER, MEDICARE ==
[~2017-07-23] VITALS: Ht 175.3 cm; Wt 107.1 kg
[~2017-07-23 16:51] MED LIST changes: +COUM5TAB PO; +ISOS30TA3 PO; -ISOS60TA PO; +NORC5TAB PO; +SPIR25 PO; -WARF-60 PO
[2017-07-23 16:57] VITALS: BP 132/63; PULSE 74; RESP 22; TEMP 98.7; O2SAT 100
[2017-07-23 17:27] VITALS: BP 159/68; PULSE 60; RESP 22; O2SAT 100
--- NOTE | 2017-07-23 17:51 | RADRPT ---
EXAM DATE/TIME: 07/23/2017 17:43 [place] COMPARISON: CT ABDOMEN & PELVIS W/O CONTRAST, July 15, 2017, 1:36. CHEST PA & LAT, July 11, 2017, 23:23. INDICATIONS : Short of breath. MEDICAL HISTORY : Hypercholesterolemia. Hypertension Diabetes mellitus type II. Skin Cancer, Non-Hodkins lymphoma, COPD , GERD, CHF, CVA, Chemotherapy, Bradycardia. SURGICAL HISTORY : Pacemaker. Hysterectomy. Aortic Valve Replacement, Left Oopherectomy, Port Placement. ENCOUNTER: Initial ACUITY: 1 day PAIN SCORE: 0/10 LOCATION: Bilateral chest FINDINGS: Pacemaker device is noted with control pack over the left chest. Right chest port is stable in good p osition. The lungs are stable with minimal parenchymal opacity at the lateral left base. Cardiac cont our is grossly unchanged. There has been previous sternotomy.. CONCLUSION: Stable chest with no acute disease. Chapito Desouza MD on July 23, 2017 at 17:48 Board Certified Radiologist. This report was verified electronically.
--- NOTE | 2017-07-23 17:57 | PD ---
HPI Chief Complaint: Respiratory Symptoms Time Seen by Provider: 17:08 Travel History International Travel<30 days: No Contact w/Intl Traveler<30days: No Traveled to known affect area: No History of Present Illness HPI 67-year-old female presents emergency department with shortness of breath, chest congestion, wheezing, and chest pain that has been persistent. States that she was discharged from the hospital 3 PM yesterday and she did not want to be discharged as she continued to have symptoms. Says she came in today because her swelling and shortness of breath has increased since yesterday. States she has chest pain that radiates under her left breast is intermittent and is similar to previous episodes of congestive heart failure. Patient states she has taken her medications today. States she has an allergy to aspirin does not take this medication. Says she takes Coumadin daily and gets her INR checked regularly. Her irrigationist designer Dr. Buitrago. [facility] Past Medical History Hx Anticoagulant Therapy: Yes (COUMADIN) Asthma: Yes Depression: Yes Heart Rhythm Problems: Yes (BRADYCARDIA ) Cancer: Yes (skin ca on nose; Non-Hodgkin's lymphoma w/tumor in abdomen ) Cardiovascular Problems: Yes High Cholesterol: Yes Chemotherapy: Yes (currently recieving chemo (02/09)) Chest Pain: Yes Congestive Heart Failure: Yes COPD: No Cerebrovascular Accident: Yes (TIA x3 2005) Diabetes: Yes Patient Takes Glucophage: No Diminished Hearing: No Endocrine: Yes Gastrointestinal Disorders: Yes (gerd) GERD: Yes Genitourinary: Yes (HEMATURIA ) Hepatitis: No Hiatal Hernia: No Hypertension: Yes Immune Disorder: No Kidney Stones: Yes (2007) Musculoskeletal: Yes (multiple sclerosis) Neurologic: Yes ( multiple sclerosis) Psychiatric: No Respiratory: Yes Immunizations Current: Yes Seizures: Yes (2005) Thyroid Disease: No Menopausal: Yes Past Surgical History Abdominal Surgery: Yes ( chocolate cyst removal ) Appendectomy: Yes Cardiac Surgery: Yes (AORTIC VALVE REPLACEMENT 1989, PACEMAKER INSERTION ) Cholecystectomy: Yes Gynecologic Surgery: Yes (left ovary removed, hysterectomy) Hysterectomy: Yes Pacemaker: Yes (Affinity SR Model #[id number]) Valve Replacement: Yes Other Surgery: Yes (PORT PLACED) Social History Alcohol Use: No Tobacco Use: No Substance Use: No Allergies-Medications (Allergen,Severity, Reaction): Coded Allergies: ampicillin (Verified Allergy, Severe, Hives, 07/23/17) aspirin (Verified Allergy, Severe, Hives, 07/23/17) cashew nut (Verified Allergy, Severe, Anaphylaxis, 07/23/17) ciprofloxacin (Verified Allergy, Severe, Hives, 07/23/17) doxycycline (Verified Allergy, Severe, Anaphylaxis, 07/23/17) erythromycin base (Verified Allergy, Severe, Anaphylaxis, 07/23/17) iodine (Verified Allergy, Severe, Shortness of Breath, 07/23/17) minocycline (Verified Allergy, Severe, Anaphylaxis, 07/23/17) morphine (Verified Allergy, Severe, Anaphylaxis, 07/23/17) penicillin G (Verified Allergy, Severe, Hives, 07/23/17) potassium iodide (Verified Allergy, Severe, Shortness of Breath, 07/23/17) povidone-iodine (Verified Allergy, Severe, Shortness of Breath, 07/23/17) sodium iodide (Verified Allergy, Severe, Shortness of Breath, 07/23/17) sodium iodide (Verified Allergy, Severe, Shortness of Breath, 07/23/17) tigecycline (Verified Allergy, Severe, Anaphylaxis, 07/23/17) bee venom protein (honey bee) (Verified Allergy, Unknown, Shortness of Breath, 07/23/17) cephalexin (Verified Allergy, Unknown, Hives, 07/23/17) codeine (Verified Allergy, Unknown, Hives, 07/23/17) diclofenac (Verified Allergy, Unknown, Hives, 07/23/17) etodolac (Verified Allergy, Unknown, Hives, 07/23/17) flurbiprofen (Verified Allergy, Unknown, Hives, 07/23/17) gentamicin (Verified Allergy, Unknown, Hives, 07/23/17) indomethacin (Verified Allergy, Unknown, Hives, 07/23/17) ketoprofen (Verified Allergy, Unknown, Hives, 07/23/17) ketorolac (Verified Allergy, Unknown, Hives, 07/23/17) metronidazole (Verified Allergy, Unknown, Hives, 07/23/17) naproxen (Verified Allergy, Unknown, Hives, 07/23/17) oxaprozin (Verified Allergy, Unknown, Hives, 07/23/17) oxycodone (Verified Allergy, Unknown, Hives, 07/23/17) propoxyphene (Verified Allergy, Unknown, Hives, 07/23/17) Uncoded Allergies: KEFLIN (Allergy, Severe, Hives, 12/16/16) Reported Meds & Prescriptions Reported Meds & Active Scripts Active Udell (Hydrocodone-Acetaminophen) 5 Mg-325 Mg Tab 1 Tab PO Q6H PRN Aldactone (Spironolactone) 25 Mg Tab 25 Mg PO BID@09,18 Metoprolol Tartrate 25 Mg Tab 6.25 Mg PO Q12HR Isosorbide Mononitrate ER (Isosorbide Mononitrate) 30 Mg Gema 30 Mg PO DAILY@ 0700 Coumadin (Warfarin) 5 Mg Tab 5 Mg PO DAILY@1600 Reported Metolazone 5 Mg Tab 5 Mg PO DAILY Bumetanide 2 Mg Tab 3 Mg PO DAILY Ondansetron HCl 4 Mg Tab 4 Mg PO BID Allopurinol 300 Mg Tab 300 Mg PO DAILY Magnesium (Magnesium Oxide) 400 Mg Tablet 1 Tab PO BID Vitamin D3 (Cholecalciferol) 2,000 Unit Cap 2,000 Units PO DAILY Tizanidine (Tizanidine HCl) 4 Mg Tab 4 Mg PO HS Singulair (Montelukast Sodium) 10 Mg Tab 10 Mg PO HS Omeprazole 20 Mg Tab 20 Mg PO BID Lovastatin 10 Mg Tab 10 Mg PO 2XWEEK Potassium Chloride ER (Potassium Chloride) 20 Meq Tab 20 Meq PO DAILY Baclofen 20 Mg Tab 20 Mg PO QID Review of Systems Except as stated in HPI: all other systems reviewed are Neg Physical Exam Narrative GENERAL: Well developed, well-nourished, in mild respiratory distress SKIN: Focused skin assessment warm/dry. Bilateral lower extremities with significant edema from just distal to the groin to the ankles. Small clear bullae present. Diffusely tender to palpation. HEAD: Atraumatic. Normocephalic. EYES: Pupils equal and round. No scleral icterus. No injection or drainage. ENT: No nasal bleeding or discharge. Mucous membranes pink and moist. NECK: Trachea midline. No JVD. CARDIOVASCULAR: Regular rate and rhythm. No murmur appreciated. RESPIRATORY: Mild accessory muscle use. Diffuse wheezing and rales present GASTROINTESTINAL: Abdomen distended, diffusely tender, protuberant MUSCULOSKELETAL: No obvious deformities. No clubbing. No cyanosis. Bilateral pulses present dorsalis pedis NEUROLOGICAL: Awake and alert. No obvious cranial nerve deficits. Motor grossly within normal limits. Normal speech. PSYCHIATRIC: Appropriate mood and affect; insight and judgment normal. Data Data Last Documented VS Vital Signs Date Time Temp Pulse Resp B/P (MAP) Pulse Ox O2 Delivery O2 Flow Rate FiO2 07/23/17 17:27 60 22 159/68 (98) 100 Room Air 07/23/17 16:57 98.7 Orders Orders Complete Blood Count With Diff (07/23/17 17:16) Comprehensive Metabolic Panel (07/23/17 17:16) B-Type Natriuretic Peptide (07/23/17 17:16) Act Partial Throm Time (Ptt) (07/23/17 17:16) Prothrombin Time / Inr (Pt) (07/23/17 17:16) Magnesium (Mg) (07/23/17 17:16) Troponin I (07/23/17 17:16) Urinalysis - C+S If Indicated (07/23/17 17:16) Electrocardiogram (07/23/17 17:16) Chest, Single Ap (07/23/17 17:16) Furosemide Inj (Lasix Inj) (07/23/17 18:45) Albuterol Neb (Albuterol Neb) (07/23/17 20:15) Admit Order (Ed Use Only) (07/23/17 20:09) Labs Laboratory Tests Test 07/23/17 18:20 White Blood Count 1.6 TH/MM3 Red Blood Count 3.61 MIL/MM3 Hemoglobin 10.3 GM/DL Hematocrit 30.1 % Mean Corpuscular Volume 83.5 FL Mean Corpuscular Hemoglobin 28.5 PG Mean Corpuscular Hemoglobin Concent 34.1 % Red Cell Distribution Width 18.6 % Platelet Count 128 TH/MM3 Mean Platelet Volume 8.1 FL Neutrophils (%) (Auto) 48.4 % Lymphocytes (%) (Auto) 7.6 % Monocytes (%) (Auto) 31.8 % Eosinophils (%) (Auto) 8.6 % Basophils (%) (Auto) 3.6 % Neutrophils # (Auto) 0.8 TH/MM3 Lymphocytes # (Auto) 0.1 TH/MM3 Monocytes # (Auto) 0.5 TH/MM3 Eosinophils # (Auto) 0.1 TH/MM3 Basophils # (Auto) 0.1 TH/MM3 CBC Comment AUTO DIFF Differential Total Cells Counted 100 Neutrophils % (Manual) 55 % Band Neutrophils % 9 % Lymphocytes % 8 % Monocytes % 18 % Eosinophils % 6 % Basophils % 4 % Neutrophils # (Manual) 1.0 TH/MM3 Differential Comment FINAL DIFF MANUAL Platelet Estimate LOW Platelet Morphology Comment NORMAL Basophilic Stippling Ovalocytes 1+ Acanthocytes OCC Prothrombin Time 21.4 SEC Prothromb Time International Ratio 2.1 RATIO Activated Partial Thromboplast Time 38.7 SEC Blood Urea Nitrogen 17 MG/DL Creatinine 1.23 MG/DL Random Glucose 121 MG/DL Total Protein 5.8 GM/DL Albumin 2.9 GM/DL Calcium Level 9.1 MG/DL Magnesium Level 1.7 MG/DL Alkaline Phosphatase 168 U/L Aspartate Amino Transf (AST/SGOT) 24 U/L Alanine Aminotransferase (ALT/SGPT) 13 U/L Total Bilirubin 0.6 MG/DL Sodium Level 133 MEQ/L Potassium Level 4.3 MEQ/L Chloride Level 96 MEQ/L Carbon Dioxide Level 32.7 MEQ/L Anion Gap 4 MEQ/L Estimat Glomerular Filtration Rate 44 ML/MIN Troponin I LESS THAN 0.02 NG/ML B-Type Natriuretic Peptide 97 PG/ML MDM Medical Decision Making Medical Screen Exam Complete: Yes Emergency Medical Condition: Yes Differential Diagnosis CHF, PNA, PE, NSTEMI Narrative Course 67-year-old female presents emergency department with shortness of breath, chest congestion, wheezing, and chest pain that has been persistent. States that she was discharged from the hospital 3 PM yesterday and she did not want to be discharged as she starts symptoms. States she has chest pain that radiates under her left breast is intermittent and is similar to previous episodes of congestive heart failure. Patient states she has taken her medications today. States she has an allergy to aspirin does not take this medication. Says she takes Coumadin daily and gets her INR checked regularly. Her irrigationist designer Dr. Carmona. EKG shows paced rhythm rate of 60BPM We attempted to weigh this patient, however she is unable to lift her legs to step onto the scale. We will to obtain a stroke bed for accurate weight. It appears that patient has had approximately 1 kg weight gain since yesterday. According to the EMR, oncology, GI, Cardiology evaluated her however, no definitive diagnosis for her diffuse edema. Dr. Alejandro did discuss his case with Dr. Buitrago, her irrigationist designer. He recommended admission with a consult along with diuresis. Diuresis with lasix initiated. I discussed this case with Dr. Alejandro as a case is rather complicated case. Please refer to his note. Upon reassessment, patient states that she had increased shortness of breath. States she felt that she was wheezing more than she had been. She says that albuterol nebulizers helped her previously. Albuterol nebulizer 1 administered , cautiously to avoid excessive stress on the heart. Pt will be admitted for acute on chronic CHF. Diagnosis Primary Impression: Congestive heart failure (CHF) Qualified Codes: I50.9 - Heart failure, unspecified Admitting Information Admitting Physician Requests: Admit Condition: Stable Manasa Escobar Jul 23, 2017 17:57
--- NOTE | 2017-07-23 18:12 | PD ---
Data Data Last Documented VS Vital Signs Date Time Temp Pulse Resp B/P (MAP) Pulse Ox O2 Delivery O2 Flow Rate FiO2 07/23/17 17:27 60 22 159/68 (98) 100 Room Air 07/23/17 16:57 98.7 Orders Orders Complete Blood Count With Diff (07/23/17 17:16) Comprehensive Metabolic Panel (07/23/17 17:16) B-Type Natriuretic Peptide (07/23/17 17:16) Act Partial Throm Time (Ptt) (07/23/17 17:16) Prothrombin Time / Inr (Pt) (07/23/17 17:16) Magnesium (Mg) (07/23/17 17:16) Troponin I (07/23/17 17:16) Urinalysis - C+S If Indicated (07/23/17 17:16) Electrocardiogram (07/23/17 17:16) Chest, Single Ap (07/23/17 17:16) Furosemide Inj (Lasix Inj) (07/23/17 18:45) MDM Supervised Visit with JOSE CRUZ: Yes Narrative Course I, Dr. Alejandro, have reviewed the advance practice practitioner's documentation and am in agreement, met with the patient face to face, made the diagnosis, and the medical decision making was done by me. *My assessment and Findings: Patient is fairly significant edema of her lower extremities up to her abdomen, recently released from the hospital for same actually had to have a paracentesis of 5.7 L removed from her belly. I reviewed the records from patient's previous visit where she was admitted for bradycardia and near syncope. She had consults to oncology who do not believe the patient's ascites was from her malignancy and GI did not believe her ascites was from her liver. Patient's creatinine was only 1.19 discharge, it was 1.69 on admission. She was seen by Dr. Huan Billingsley in the hospital, his conclusion was that her fluid overload was unlikely due to CHF. 3 days later the patient had an echocardiogram which showed "severe/wide open tricuspid valve regurgitation". This certainly could cause the patient's fluid overload, she states that her swelling is gotten worse since she was released in the hospital we have gotten a weight here compared to her discharge weight which is no different. It was documented on discharge and she only had trace edema of her lower extremities but certainly she has pitting edema of her lower extremities from the thigh down , her lungs are clear suggesting purely right sided failure which certainly could be consistent with her tricuspid regurgitation. A previous echocardiogram on file did not show any tricuspid regurgitation. I discussed this with Dr. Buitrago who is going to look through his records and see if she had any previous finding of tricuspid regurgitation but he recommends admission for diuresis at this time. Patient is on Bumex at home, unfortunately were out of IV Bumex and the patient was given Lasix instead. Diagnosis Primary Impression: Severe tricuspid regurgitation Additional Impressions: Anasarca Congestive heart failure (CHF) Qualified Codes: I50.9 - Heart failure, unspecified Admitting Information Admitting Physician Requests: Admit Condition: Stable Jaycob Alejandro MD Jul 23, 2017 18:12
[2017-07-23] MEDS ORDERED: FUROSEMIDE 40 MG/4 ML VIAL IV PUSH ONE (18:45)
[2017-07-23 19:03] LABS: AUTOMATED NEUTROPHIL # 0.8 TH/MM3 (1.8-7.7); BASOPHIL # 0.1 TH/MM3 (0-0.2); BASOPHIL % 3.6 % (0.0-2.0); EOSINOPHIL # 0.1 TH/MM3 (0-0.4); EOSINOPHIL % 8.6 % (0.0-4.0); HEMATOCRIT 30.1 % (35.0-46.0); HEMOGLOBIN 10.3 GM/DL (11.6-15.3); LYMPH % 7.6 % (9.0-44.0); LYMPHOCYTE # 0.1 TH/MM3 (1.0-4.8); MEAN CELL VOLUME 83.5 FL (80.0-100.0); MEAN CORPUSCULAR HEMOGLOBIN 28.5 PG (27.0-34.0); MEAN CORPUSCULAR HGB CONC 34.1 % (32.0-36.0); MEAN PLATELET VOLUME 8.1 FL (7.0-11.0); MONO % 31.8 % (0.0-8.0); MONOCYTE # 0.5 TH/MM3 (0-0.9); NEUT % 48.4 % (16.0-70.0); PLATELET COUNT 128 TH/MM3 (150-450); RED BLOOD COUNT 3.61 MIL/MM3 (4.00-5.30); RED CELL DISTRIBUTION WIDTH 18.6 % (11.6-17.2); WHITE BLOOD COUNT 1.6 TH/MM3 (4.0-11.0)
[2017-07-23 19:17] LABS: INTERNATIONAL NORMALIZED RATIO 2.1 RATIO; PROTHROMBIN TIME - PATIENT 21.4 SEC (9.8-11.6)
[2017-07-23 19:29] LABS: ALBUMIN 2.9 GM/DL (3.4-5.0); AST (GOT) 24 U/L (15-37); BICARBONATE 32.7 MEQ/L (21.0-32.0); BLOOD UREA NITROGEN 17 MG/DL (7-18); CALCIUM 9.1 MG/DL (8.5-10.1); CHLORIDE 96 MEQ/L (98-107); CREATININE 1.23 MG/DL (0.50-1.00); GLOMERULAR FILTRATION RATE 44 ML/MIN (>89); GLUCOSE,RANDOM 121 MG/DL (74-106); MAGNESIUM 1.7 MG/DL (1.5-2.5); SODIUM (NA) 133 MEQ/L (136-145)
[2017-07-23 19:30] LABS: ALT (GPT) 13 U/L (10-53)
[2017-07-23 19:33] LABS: ALKALINE PHOSPHATASE 168 U/L (45-117); TOTAL BILIRUBIN ADULT 0.6 MG/DL (0.2-1.0); TOTAL PROTEIN 5.8 GM/DL (6.4-8.2); TROPONIN I LESS THAN 0.02 NG/ML (0.02-0.05)
[2017-07-23] MEDS ORDERED: RESP: ALBUTEROL 2.5 MG/3 ML NEB (SCH) INH ONE (20:15)
[2017-07-23 20:23] LABS: BANDS 9 % (0-6); BASOPHILS 4 % (0-2); LYMPHOCYTES 8 % (9-44); MONOCYTES 18 % (0-8); POLYS (SEG NEUTROPHILS) 55 % (16-70)
[2017-07-23] MEDS ORDERED: BUME2TAB PO (20:23)
[2017-07-23] MEDS ORDERED: METO5TAB3 PO (20:23)
[2017-07-23 20:24] VITALS: BP 156/69; PULSE 60; RESP 20; O2SAT 100
[2017-07-23 20:24] LABS: ACANTHOCYTES OCC (NORMAL); OVALOCYTES 1+ (NORMAL)
--- NOTE | 2017-07-23 20:38 | HHI.HP ---
[facility] Service [facility] Primary Care Physician Chapito Baird MD Admission Diagnosis Acute on chronic CHF, SOB, Edema Diagnoses: Chief Complaint: Shortness of breath, worsening edema Travel History International Travel<30 Days: No Contact w/Intl Traveler <30 Da: No Traveled to Known Affected Are: No History of Present Illness 67-year-old female with a medical history significant for bradycardia status post pacemaker placement, history of aVR, follicular lymphoma, history of CHF and history of CVA who was discharged from the hospital yesterday after she was admitted for symptomatic bradycardia, dizziness and hypertension. Her medications were adjusted. The patient also had ascites and underwent paracentesis. Apparently her conditions improved and she was discharged yesterday. The patient presented again today in the emergency room with complaint of worsening edema, shortness of breath, chest congestion, wheezing and chest pain. She states she took Bumex and metolazone as instructed earlier this morning. She initially was urinating a lot but then stopped, felt the fluid reaccumulating again in her abdomen. She was seen by GI and oncology at the last visit and they indicated fluid overload was not likely due to liver or malignancy. It is noted the patient has severe tricuspid regurgitation. ED physician discussed the case with hot plate press operator, Dr. Buitrago who recommended admission with IV diuretics. The patient will be admitted for further treatment. Past Family Social History Past Medical History Bradycardia status post pacemaker placement, history of aVR, follicular lymphoma , history of CHF and h/o CVA and Chronic Anticoagulation Past Surgical History Aortic Valve Replacement, Pacemaker, Appendectomy, Left Oophorectomy, Hysterectomy, Cholecystectomy Reported Medications Reported Meds & Active Scripts Active [place] (Hydrocodone-Acetaminophen) 5 Mg-325 Mg Tab 1 Tab PO Q6H PRN Aldactone (Spironolactone) 25 Mg Tab 25 Mg PO BID@09,18 Metoprolol Tartrate 25 Mg Tab 6.25 Mg PO Q12HR Isosorbide Mononitrate ER (Isosorbide Mononitrate) 30 Mg Gema 30 Mg PO DAILY@ 0700 Coumadin (Warfarin) 5 Mg Tab 5 Mg PO DAILY@1600 Reported Metolazone 5 Mg Tab 5 Mg PO DAILY Bumetanide 2 Mg Tab 3 Mg PO DAILY Ondansetron HCl 4 Mg Tab 4 Mg PO BID Allopurinol 300 Mg Tab 300 Mg PO DAILY Magnesium (Magnesium Oxide) 400 Mg Tablet 1 Tab PO BID Vitamin D3 (Cholecalciferol) 2,000 Unit Cap 2,000 Units PO DAILY Tizanidine (Tizanidine HCl) 4 Mg Tab 4 Mg PO HS Singulair (Montelukast Sodium) 10 Mg Tab 10 Mg PO HS Omeprazole 20 Mg Tab 20 Mg PO BID Lovastatin 10 Mg Tab 10 Mg PO 2XWEEK Potassium Chloride ER (Potassium Chloride) 20 Meq Tab 20 Meq PO DAILY Baclofen 20 Mg Tab 20 Mg PO QID Allergies: Coded Allergies: ampicillin (Verified Allergy, Severe, Hives, 07/23/17) aspirin (Verified Allergy, Severe, Hives, 07/23/17) cashew nut (Verified Allergy, Severe, Anaphylaxis, 07/23/17) ciprofloxacin (Verified Allergy, Severe, Hives, 07/23/17) doxycycline (Verified Allergy, Severe, Anaphylaxis, 07/23/17) erythromycin base (Verified Allergy, Severe, Anaphylaxis, 07/23/17) iodine (Verified Allergy, Severe, Shortness of Breath, 07/23/17) minocycline (Verified Allergy, Severe, Anaphylaxis, 07/23/17) morphine (Verified Allergy, Severe, Anaphylaxis, 07/23/17) penicillin G (Verified Allergy, Severe, Hives, 07/23/17) potassium iodide (Verified Allergy, Severe, Shortness of Breath, 07/23/17) povidone-iodine (Verified Allergy, Severe, Shortness of Breath, 07/23/17) sodium iodide (Verified Allergy, Severe, Shortness of Breath, 07/23/17) sodium iodide (Verified Allergy, Severe, Shortness of Breath, 07/23/17) tigecycline (Verified Allergy, Severe, Anaphylaxis, 07/23/17) bee venom protein (honey bee) (Verified Allergy, Unknown, Shortness of Breath, 07/23/17) cephalexin (Verified Allergy, Unknown, Hives, 07/23/17) codeine (Verified Allergy, Unknown, Hives, 07/23/17) diclofenac (Verified Allergy, Unknown, Hives, 07/23/17) etodolac (Verified Allergy, Unknown, Hives, 07/23/17) flurbiprofen (Verified Allergy, Unknown, Hives, 07/23/17) gentamicin (Verified Allergy, Unknown, Hives, 07/23/17) indomethacin (Verified Allergy, Unknown, Hives, 07/23/17) ketoprofen (Verified Allergy, Unknown, Hives, 07/23/17) ketorolac (Verified Allergy, Unknown, Hives, 07/23/17) metronidazole (Verified Allergy, Unknown, Hives, 07/23/17) naproxen (Verified Allergy, Unknown, Hives, 07/23/17) oxaprozin (Verified Allergy, Unknown, Hives, 07/23/17) oxycodone (Verified Allergy, Unknown, Hives, 07/23/17) propoxyphene (Verified Allergy, Unknown, Hives, 07/23/17) Uncoded Allergies: KEFLIN (Allergy, Severe, Hives, 12/16/16) Family History Reviewed and found to be noncontributory. Social History Patient denies using tobacco, alcohol, or illicit drugs. Physical Exam Vital Signs Vital Signs Date Time Temp Pulse Resp B/P (MAP) Pulse Ox O2 Delivery O2 Flow Rate FiO2 07/23/17 20:24 60 20 156/69 (98) 100 Nasal Cannula 2.00 07/23/17 17:27 60 22 159/68 (98) 100 Room Air 07/23/17 17:26 60 20 07/23/17 16:57 98.7 74 22 132/63 (86) 100 Physical Exam GENERAL: Chronically ill-appearing female SKIN: Extensive venous stasis changes bilateral lower extremities. HEAD: Atraumatic. Normocephalic. No temporal or scalp tenderness. EYES: Pupils equal round and reactive. Extraocular motions intact. No scleral icterus. No injection or drainage. ENT: Nose without bleeding, purulent drainage or septal hematoma. Throat without erythema, tonsillar hypertrophy or exudate. Uvula midline. Airway patent. NECK: Trachea midline. No JVD or lymphadenopathy. Supple, nontender, no meningeal signs. CARDIOVASCULAR: Normal rate, regular rhythm. 2 out of 6 murmur over the right SB and apex. RESPIRATORY: Clear to auscultation. Breath sounds equal bilaterally. No wheezes , rales, or rhonchi. GASTROINTESTINAL: Abdomen is morbidly obese. Nontender. Some edema and probable ascites. MUSCULOSKELETAL: Bilateral lower extremities with 2+ edema. NEUROLOGICAL: Awake and alert. Cranial nerves II through XII intact. Motor and sensory grossly within normal limits. Five out of 5 muscle strength in all muscle groups. Normal speech. Laboratory Laboratory Tests Test 07/23/17 18:20 White Blood Count 1.6 Red Blood Count 3.61 Hemoglobin 10.3 Hematocrit 30.1 Mean Corpuscular Volume 83.5 Mean Corpuscular Hemoglobin 28.5 Mean Corpuscular Hemoglobin Concent 34.1 Red Cell Distribution Width 18.6 Platelet Count 128 Mean Platelet Volume 8.1 Neutrophils (%) (Auto) 48.4 Lymphocytes (%) (Auto) 7.6 Monocytes (%) (Auto) 31.8 Eosinophils (%) (Auto) 8.6 Basophils (%) (Auto) 3.6 Neutrophils # (Auto) 0.8 Lymphocytes # (Auto) 0.1 Monocytes # (Auto) 0.5 Eosinophils # (Auto) 0.1 Basophils # (Auto) 0.1 CBC Comment AUTO DIFF Differential Total Cells Counted 100 Neutrophils % (Manual) 55 Band Neutrophils % 9 Lymphocytes % 8 Monocytes % 18 Eosinophils % 6 Basophils % 4 Neutrophils # (Manual) 1.0 Differential Comment FINAL DIFF MANUAL Platelet Estimate LOW Platelet Morphology Comment NORMAL Basophilic Stippling Ovalocytes 1+ Acanthocytes OCC Prothrombin Time 21.4 Prothromb Time International Ratio 2.1 Activated Partial Thromboplast Time 38.7 Blood Urea Nitrogen 17 Creatinine 1.23 Random Glucose 121 Total Protein 5.8 Albumin 2.9 Calcium Level 9.1 Magnesium Level 1.7 Alkaline Phosphatase 168 Aspartate Amino Transf (AST/SGOT) 24 Alanine Aminotransferase (ALT/SGPT) 13 Total Bilirubin 0.6 Sodium Level 133 Potassium Level 4.3 Chloride Level 96 Carbon Dioxide Level 32.7 Anion Gap 4 Estimat Glomerular Filtration Rate 44 Troponin I LESS THAN 0.02 Result Diagram: 07/23/17 1820 07/23/17 1820 Imaging Last Impressions Chest X-Ray 07/23/17 1716 Signed Impressions: Service Date/Time: Sunday, July 23, 2017 17:43 - CONCLUSION: Stable chest with no acute disease. MD Boone Trevizo VTE Risk Assessment Davidrinteena VTE Risk Assessment: Mod/High Risk (score >= 2) Caprini Risk Assessment Model Point Value = 1 Point Value = 2 Point Value = 3 Point Value = 5 Age 41-60 Minor surgery BMI > 25 kg/m2 Swollen legs Varicose veins or History of unexplained or recurrent spontaneous Oral contraceptives or hormone replacement Sepsis (< 1 month) Serious lung disease, including pneumonia (< 1 month) Abnormal pulmonary function Acute myocardial infarction Congestive heart failure (< 1 month) History of inflammatory bowel disease Medical patient at bed rest Age 61-74 Arthroscopic surgery Major open surgery (> 45 min) Laparoscopic surgery (> 45 min) Malignancy Confined to bed (> 72 hours) Immobilizing plaster cast Central venous access Age >= 75 History of VTE Family history of VTE Factor V Leiden Prothrombin [id number] Lupus anticoagulant Anticardiolipin antibodies Elevated serum homocysteine Heparin-induced thrombocytopenia Other congenital or acquired thrombophilia Stroke (< 1 month) Elective arthroplasty Hip, pelvis, or leg fracture Acute spinal cord injury (< 1 month) Prophylaxis Regimen Total Risk Factor Score Risk Level Prophylaxis Regimen 0-1 Low Early ambulation 2 Moderate Order ONE of the following: *Sequential Compression Device (SCD) *Heparin 5000 units SQ BID 3-4 Higher Order ONE of the following medications: *Heparin 5000 units SQ TID *Enoxaparin/Lovenox 40 mg SQ daily (WT < 150 kg, CrCl > 30 mL/min) *Enoxaparin/Lovenox 30 mg SQ daily (WT < 150 kg, CrCl > 10-29 mL/min) *Enoxaparin/Lovenox 30 mg SQ BID (WT < 150 kg, CrCl > 30 mL/min) AND/OR *Sequential Compression Device (SCD) 5 or more Highest Order ONE of the following medications: *Heparin 5000 units SQ TID (Preferred with Epidurals) *Enoxaparin/Lovenox 40 mg SQ daily (WT < 150 kg, CrCl > 30 mL/min) *Enoxaparin/Lovenox 30 mg SQ daily (WT < 150 kg, CrCl > 10-29 mL/min) *Enoxaparin/Lovenox 30 mg SQ BID (WT < 150 kg, CrCl > 30 mL/min) AND *Sequential Compression Device (SCD) Assessment and Plan Problem List: (1) Anasarca ICD Code: R60.1 - Generalized edema Status: Acute Plan: Concern for valvulopathy/right heart failure as the cause. Patient has severe tricuspid regurgitation. Recent workup by GI and oncology. - Cardiology consulted. -Treated with IV Lasix 40 mg twice daily, continue metolazone and spironolactone. BNP pending Medicine patient is status post paracentesis 7 days ago and 5.7 L was taken out. Fluid was negative for malignant cells. -Restrict fluid (2) Severe tricuspid regurgitation ICD Code: I07.1 - Rheumatic tricuspid insufficiency Status: Acute Plan: Cardiology consulted as above. (3) Permanent atrial fibrillation ICD Code: I48.2 - Chronic atrial fibrillation Plan: Rate controlled. Continue Coumadin. INR currently 2.1. Goal is around 2.5. Increase Coumadin to 6 mg daily. Monitor INR. (4) Ascites ICD Code: R18.8 - Other ascites Plan: It seems that she is reaccumulating fluid. Status post paracentesis 7 days ago. -continue to monitor. May need repeat paracentesis if she is not responding enough to IV diuretics. (5) History of aortic valve replacement ICD Code: Z95.2 - Presence of prosthetic heart valve Status: Chronic Plan: Anticoagulated as above (6) CKD (chronic kidney disease) stage 3, GFR 30-59 ml/min ICD Code: N18.3 - Chronic kidney disease, stage 3 (moderate) Plan: Monitor closely with diuretics Discussed Condition With ED TRAFFIC CONTROL SIGNALER Physician Certification 2 Midnight Certification Type: Admission for Inpatient Services Order for Inpatient Services The services are ordered in accordance with Medicare regulations or non- Medicare payer requirements, as applicable. In the case of services not specified as inpatient-only, they are appropriately provided as inpatient services in accordance with the 2-midnight benchmark. Estimated LOS (days): 3 days is the estimated time the patient will need to remain in the hospital, assuming treatment plan goals are met and no additional complications. Post-Hospital Plan: Not yet determined Geno Kebede MD Jul 23, 2017 20:38
[2017-07-23 21:18] LABS: BILIRUBIN, URINE NEG (NEG); BLOOD, URINE NEG (NEG); GLUCOSE,URINE NEG (NEG); HYALINE CAST, URINE 1 /lpf (RARE); KETONE, URINE NEG (NEG); MUCUS URINE FEW /lpf (OCC); NITRITE,URINE NEG (NEG); PH, URINE 6.5 (5.0-8.5); SQUAMOUS EPITHELIAL CELL URINE 1 /hpf (0-5); URINE COLOR LIGHT-YELLOW (YELLW/STRAW); URINE LEUKOCYTE ESTERASE NEG (NEG)
[2017-07-23 22:15] VITALS: BP 141/51; PULSE 60; RESP 20; TEMP 97.3; O2SAT 98
[2017-07-24] VITALS (10 sets, daily range): BP systolic 92–122; BP diastolic 55–63; PULSE 53–63; RESP 18–20; TEMP 97.8–98; O2SAT 95–100
[2017-07-24] MEDS: BACLOFEN 20 MG TAB PO SCH ×5 (00:03→22:23)
[2017-07-24] MEDS: PANTOPRAZOLE SOD 20 MG DELAYED RELEASE TAB PO SCH ×3 (00:04→22:22)
[2017-07-24] MEDS: METOPROLOL TARTRATE 25 MG TAB PO SCH ×3 (00:04→22:23)
[2017-07-24] MEDS: MAGNESIUM OXIDE 400 MG TAB PO SCH ×3 (00:04→22:23)
[2017-07-24] MEDS: MONTELUKAST SODIUM 10 MG TAB PO SCH ×2 (00:04→22:22)
[2017-07-24] MEDS: ONDANSETRON ODT 4 MG TAB PO SCH ×3 (00:04→22:23)
[2017-07-24] MEDS: SODIUM CHLORIDE 0.9% FLUSH 10 ML FLUSH IV FLUSH SCH ×3 (00:05→22:24)
[2017-07-24] MEDS: ACETAMINOPHEN/HYDROcodone 325 MG/5 MG TAB PO PRN ×4 (01:39→22:24)
[2017-07-24] MEDS: RESP: ALBUTEROL 2.5 MG/IPRATROPIUM 0.5 MG NEB (PRN) NEB ×3 (01:45→19:59)
[2017-07-24 07:26] LABS: BICARBONATE 30.6 MEQ/L (21.0-32.0); CALCIUM 8.7 MG/DL (8.5-10.1); CREATININE 1.18 MG/DL (0.50-1.00)
[2017-07-24 07:36] LABS: FREE T4 1.58 NG/DL (0.76-1.46)
--- NOTE | 2017-07-24 08:07 | MB ---
cc: Gui Buitrago MD DATE OF CONSULT: 07/18/2017 REASON FOR CONSULTATION: Recurrent right-sided congestive heart failure. HISTORY OF PRESENT ILLNESS: The patient is a 67-year-old white female with a history of [employer] Bao aortic valve replacement, chronic atrial fibrillation, congestive heart failure, mostly right-sided, coronary artery disease, diabetes, non-Hodgkin lymphoma, multiple sclerosis, history of pacemaker implant, who presented to the hospital with complaints of increased pedal edema, abdominal girth, and shortness of breath. The patient was recently just discharged after an admission for hypotension, possible dehydration. The patient states shortly after discharged, she developed fairly rapid increase in her pedal edema, as well as increased abdominal girth and shortness of breath with minimal to mild exertion. The patient also has had occasional to infrequent substernal chest "pressure," never lasting more than 10 minutes, associated with shortness of breath without nausea or diaphoresis. She denies fevers, paroxysmal nocturnal dyspnea, syncope, near syncope, palpitations. She reports compliance with the medications. PAST MEDICAL HISTORY: 1. Aortic valve disease, status post [employer] Bao aortic valve replacement 1989. 2. Asthma. 3. Chronic atrial fibrillation. 4. Congestive heart failure, dating back to 1993. She had an episode of congestive heart failure 02/13/2017, possibly due to diastolic dysfunction. Since that time, she has had difficulties with mostly right-sided heart failure. 5. Coronary artery disease with heart catheterization 02/17/2017, showing totally occluded but well-collateralized right coronary artery with normal left coronary arteries. 6. Diabetes. 7. Gastroesophageal reflux disease. 8. Gout. 9. Hyperlipidemia. 10. Hypertension. 11. Non-Hodgkin B cell lymphoma, status post chemotherapy. 12. Multiple sclerosis. 13. History of [employer] Bao pacemaker implant. 14. History of transient ischemic attack. 15. Severe tricuspid regurgitation demonstrated on echo last week. CARDIAC MEDICATIONS AT HOME: Potassium chloride 20 mEq daily, lovastatin 10 mg 2 times a week, Bumex 3 mg daily, metolazone 5 mg daily, Coumadin 5 mg daily, Imdur 30 mg daily, metoprolol tartrate 6.25 mg b.i.d., Aldactone 15 mg b.i.d. ALLERGIES: THE PATIENT HAS NUMEROUS ALLERGIES LISTED IN THE ELECTRONIC RECORDS. FAMILY HISTORY: Noncontributory. SOCIAL HISTORY: The patient has no history of alcohol or tobacco abuse. REVIEW OF SYSTEMS: As in the history of present illness, otherwise negative or noncontributory. She also denies headache, melena, bright red blood per rectum, abdominal pain, nausea, vomiting. PHYSICAL EXAMINATION: Her blood pressure 111/56 with a pulse of 60, respirations 20. GENERAL: She is a well-developed, well-nourished white female, no acute distress. HEENT: Jugular venous pressure is seen to the mandible. Carotid pulses are 2+ bilaterally and without bruits. CHEST: Reveals clear lung cheung. CARDIAC: She has a regular rhythm and rate with a grade II/ systolic ejection murmur heard at the base of the heart. The aortic valve replacement sounds are crisp. No definite gallop is audible. No definite right ventricular heave is appreciated. ABDOMEN: She has a soft, possibly distended abdomen. Bowel sounds are present. There is no definite hepatosplenomegaly. EXTREMITIES: Reveals no clubbing or cyanosis. There is severe pedal edema bilaterally, as well as chronic venous stasis changes. LABORATORY DATA: Includes WBC 1.6, hemoglobin 10.3, platelets 128. Potassium 4.1, BUN 18, creatinine 1.18, AST 24, ALT 13. Troponin less than 0.02. INR 2.1. Chest x-ray shows no acute disease. EKG shows ventricular-paced rhythm. IMPRESSION: Recurrent right-sided congestive heart failure in this 67-year-old white female with a history of [employer] Bao aortic valve replacement, asthma, chronic atrial fibrillation, coronary artery disease, diabetes, non-Hodgkin lymphoma, multiple sclerosis, pacemaker implant, severe tricuspid regurgitation demonstrated on recent echo. I suspect her right-sided heart failure is primarily due to the tricuspid regurgitation, which is worse compared to her echo findings 11/2016. She also appears to have some element of at least mild right ventricular systolic dysfunction and right ventricular enlargement. There has been no definite evidence for pulmonary hypertension. With respect to her history of coronary artery disease, she does have overall infrequent episodes of angina-like chest discomfort. She has a known totally occluded but well-collateralized right coronary artery. Overall, she would probably be a very high-risk candidate for tricuspid valve surgery at this time. However, the patient does want to have some assessment of what exactly her risk would be for cardiac surgery in the near future. RECOMMENDATIONS: 1. Continue diuretic therapy and diuresis. Agree with intravenous Lasix, metolazone and spironolactone. 2. Cardiothoracic surgery consultation mainly to assess her risk of tricuspid valve surgery in the future. MD EVENS Bhat/RAUL , 07:37 AM , 08:05 AM MTDKarolina
[2017-07-24] MEDS: ALLOPURINOL 300 MG TAB PO SCH (08:30)
[2017-07-24] MEDS: CHOLECALCIFEROL (VIT D3) 1000 UNIT TAB PO SCH (08:30)
[2017-07-24] MEDS: ISOSORBIDE MONONITRATE 30 MG CR TAB (IMDUR) PO SCH (08:30)
[2017-07-24] MEDS: POTASSIUM CHLORIDE 20 MEQ CONTROLLED RELEASE TAB PO SCH (08:32)
[2017-07-24] MEDS: SPIRONOLACTONE 25 MG TAB PO SCH ×2 (08:32→18:30)
[2017-07-24] MEDS: METOLAZONE 5 MG TAB PO SCH (08:33)
[2017-07-24] MEDS: FUROSEMIDE 40 MG/4 ML VIAL IVP SCH ×2 (08:34→18:30)
--- NOTE | 2017-07-24 08:37 | HHI.PR ---
Subjective Remarks In bed says she feels slightly imprpved today. Still with sob. No fever ro chills. No n/v/d/c. Is not eating much Patient also is telling me she has pain in her legs and she has MS, follows with neurology in [place] , doesn't have a neurology here because she did not get exacerbations so far but would like to see a neurology Dr As she cant move much her legs. Objective Vitals Vital Signs Date Time Temp Pulse Resp B/P (MAP) Pulse Ox O2 Delivery O2 Flow Rate FiO2 07/24/17 04:00 60 07/24/17 04:00 98.0 60 20 111/56 (74) 97 07/24/17 02:35 100 07/24/17 00:00 60 07/24/17 00:00 98.0 60 20 122/59 (80) 97 07/23/17 22:15 97.3 60 20 141/51 (81) 98 07/23/17 21:59 07/23/17 20:24 60 20 156/69 (98) 100 Nasal Cannula 2.00 07/23/17 17:27 60 22 159/68 (98) 100 Room Air 07/23/17 17:26 60 20 07/23/17 16:57 98.7 74 22 132/63 (86) 100 I/O 07/23/17 07/23/17 07/23/17 07/24/17 07/24/17 07/24/17 07:00 15:00 23:00 07:00 15:00 23:00 Intake Total 120 ml Output Total 1000 ml Balance -880 ml Intake Oral 120 ml Output Urine Total 1000 ml # Bowel Movements 0 Result Diagram: 07/23/17 1820 07/24/17 0641 Imaging Last Impressions Chest X-Ray 07/23/17 1716 Signed Impressions: Service Date/Time: Sunday, July 23, 2017 17:43 - CONCLUSION: Stable chest with no acute disease. Chapito Desouza MD Objective Remarks GENERAL: Chronically ill-appearing female SKIN: Extensive venous stasis changes bilateral lower extremities. CARDIOVASCULAR: Normal rate, regular rhythm. 2 out of 6 murmur over the right SB and apex. RESPIRATORY: Clear to auscultation. Breath sounds equal bilaterally. No wheezes , rales, or rhonchi. GASTROINTESTINAL: Abdomen is morbidly obese. Nontender. Some edema and probable ascites. MUSCULOSKELETAL: Bilateral lower extremities with 2+ edema. NEUROLOGICAL: Awake and alert. Cranial nerves II through XII grossly intact. Motor and sensory grossly within normal limits upper extremities. Weakness lower extremities 4 out of 5. Normal speech. A/P Problem List: (1) Anasarca ICD Code: R60.1 - Generalized edema Status: Acute (2) Severe tricuspid regurgitation ICD Code: I07.1 - Rheumatic tricuspid insufficiency Status: Acute (3) Permanent atrial fibrillation ICD Code: I48.2 - Chronic atrial fibrillation (4) Ascites ICD Code: R18.8 - Other ascites (5) History of aortic valve replacement ICD Code: Z95.2 - Presence of prosthetic heart valve Status: Chronic (6) CKD (chronic kidney disease) stage 3, GFR 30-59 ml/min ICD Code: N18.3 - Chronic kidney disease, stage 3 (moderate) (7) Follicular lymphoma grade I ICD Code: C82.00 - Follicular lymphoma grade I, unspecified site Plan: consult hem/onc (8) Pancytopenia ICD Code: D61.818 - Other pancytopenia Plan: placed in isolation Consult hem/onc for eval (9) H/O multiple sclerosis ICD Code: Z86.69 - Personal history of other diseases of the nervous system and sense organs Plan: poss exacerbation at this time consult neurology for further eval consult pt/ot Assessment and Plan (1) Anasarca ICD Code: R60.1 - Generalized edema Status: Acute Plan: Concern for valvulopathy/right heart failure as the cause. Patient has severe tricuspid regurgitation. Recent workup by GI and oncology. - Cardiology consulted. -Treated with IV Lasix 40 mg twice daily, continue metolazone and spironolactone. BNP pending Medicine patient is status post paracentesis 7 days ago and 5.7 L was taken out. Fluid was negative for malignant cells. -Restrict fluid (2) Severe tricuspid regurgitation ICD Code: I07.1 - Rheumatic tricuspid insufficiency Status: Acute Plan: Cardiology consulted as above. Consult cardio thoracic surgeon for evaluation (3) Permanent atrial fibrillation ICD Code: I48.2 - Chronic atrial fibrillation Plan: Rate controlled. Continue Coumadin. INR 2.1 on admission. Goal is around 2.5. Increase Coumadin to 6 mg daily. Monitor INR. Consult pharmacy (4) Ascites ICD Code: R18.8 - Other ascites Plan: It seems that she is reaccumulating fluid. Status post paracentesis 7 days ago. -continue to monitor. May need repeat paracentesis if she is not responding enough to IV diuretics. (5) History of aortic valve replacement ICD Code: Z95.2 - Presence of prosthetic heart valve Status: Chronic Plan: Anticoagulated as above (6) CKD (chronic kidney disease) stage 3, GFR 30-59 ml/min ICD Code: N18.3 - Chronic kidney disease, stage 3 (moderate) Plan: Monitor closely with diuretics (7) Follicular lymphoma grade I ICD Code: C82.00 - Follicular lymphoma grade I, unspecified site Plan: consult hem/onc (8) Pancytopenia ICD Code: D61.818 - Other pancytopenia Plan: placed in isolation Consult hem/onc for eval (9) H/O multiple sclerosis ICD Code: Z86.69 - Personal history of other diseases of the nervous system and sense organs Plan: poss exacerbation at this time consult neurology for further eval consult pt/ot Discussed Condition With pt, nurse, family Alisson Alvarado MD Jul 24, 2017 08:37
[2017-07-24] MEDS ORDERED: PRAVASTATIN SOD 10 MG TAB PO SCH (09:00)
--- NOTE | 2017-07-24 11:13 | EKG ---
Date Performed: 07/23/2017 Time Performed: 17:17:35 PTAGE: 67 years EKG: ELECTRONIC VENTRICULAR PACEMAKER ABNORMAL RHYTHM ECG Since the prior tracing, there has bee n no significant change PREVIOUS TRACING : 07/13/2017 03.51 DOCTOR: Nicolas Valle Interpretating Date/Time 07/24/2017 11:10:06
--- NOTE | 2017-07-24 15:59 | MB ---
cc: Berenice Anderson DATE OF CONSULT: A 67-year-old female with history of St. Bao aortic valve replacement x 2; first time was in 1986 at [facility], then 1989 at [facility] by Dr. Grant. Was recently discharged after an admission for hypotension and possible dehydration. Shortly afterward, she developed rapid increase in pedal edema as well as increased abdominal girth and weight, shortness of breath with minimal exertion, some chest pressure lasting more than 10 minutes associated with shortness of breath. No nausea or diaphoresis. No paroxysmal nocturnal dyspnea, no orthopnea. She has also developed some more congestion and cough during the course of her stay. Patient underwent an echocardiogram, which showed an ejection fraction of 45-50%. This was done on her last admission. She had some mild LVH, the right ventricle was severely dilated, she had some mild mitral valve regurgitation, the mechanical valve mean gradient of 18 with a valve area of 0.56. However, she also had severe, wide open tricuspid regurgitation. We were asked to see the patient in regards to reevaluation for tricuspid valve repair or replacement. PAST MEDICAL HISTORY: Includes aortic valve disease. Her last valve was placed, St. Bao aortic valve, in 1989. Asthma, chronic atrial fibrillation, congestive heart failure dating back to 1993. She has also had a recent admission with heart failure in 01/2017, history of coronary artery disease showing totally occluded but well collateralized right coronary artery with normal left coronary arteries, diabetes mellitus, gastroesophageal reflux disease, gout, hyperlipidemia, hypertension, non-Hodgkin B-cell lymphoma, status post chemotherapy, multiple sclerosis, history of TIA, and recent diagnosis of severe tricuspid regurgitation. She is on chronic anticoagulation. SURGERIES: Include appendectomy, left oophorectomy, hysterectomy, cholecystectomy, pacemaker implant, and [place] on the right upper chest wall. ALLERGIES: THEY ARE VERY EXTENSIVE, INCLUDING KEFLEX, AMPICILLIN, ASPIRIN, BEE VENOM PROTEIN, CASHEWS, CIPRO, CODEINE, DICLOFENAC, DOXYCYCLINE, ERYTHROMYCIN, TORADOL, GENTAMICIN, INDOCIN, IODINE, TYGACIL, OXYCODONE, DARVOCET. FAMILY HISTORY: Noncontributory. SOCIAL HISTORY: Patient , lives with her . No alcohol or tobacco abuse. REVIEW OF SYSTEMS: History of present illness; otherwise negative. Denies headaches. No abdominal pain. No nausea, vomiting. PHYSICAL EXAMINATION: Blood pressure 100/60, heart rate of 60, temp max 98, O2 sat 96%. Patient awake, alert, no acute distress. HEENT: Head is normocephalic, atraumatic. Pupils equal and reactive. Oral mucosa pink, moist. NECK: Supple. No JVD. HEART: Sounds S1, S2. There is a grade II/ systolic murmur, best noted at the base of the heart. Aortic valve sounds are crisp. No gallop or rub noted. No heave. LUNGS: She has got coarse bilateral breath sounds with an expiratory wheeze. ABDOMEN: Soft. Positive bowel sounds. No hepatosplenomegaly. EXTREMITIES: Reveal trace edema with good distal pulses. Lab work shows hemoglobin 10.3, hematocrit of 30, white cell count of 1.6, platelet count of 128. Sodium 134, potassium 4.1, BUN of 18, creatinine 1.18. TSH of 2.8. Troponin less than 0.02. BNP was 97. INR 2.1. Urinalysis is unremarkable. Chest x-ray today showed some opacity at the left lateral base, previous sternotomy. IMPRESSION: This is a 67-year-old female, recurrent right-sided heart failure with history of St. Bao valve replacement x 2, also history of asthma, chronic atrial fibrillation on anticoagulation, coronary artery disease, diabetes, non-Hodgkin lymphoma, immunocompromise, has a pacemaker implant. Patient now with severe tricuspid regurgitation, also aortic valve stenosis. Patient is high-risk candidate for any surgery at this time. Dr. Ingram has requested the films and consultations be sent to [facility] to be evaluated for possible transfer and evaluation for surgery at a tertiary center. PK Hsu MD JRT/TI , 03:39 PM , 03:58 PM
[2017-07-24] MEDS ORDERED: WARFARIN SOD 5 MG TAB PO SCH (16:00)
--- NOTE | 2017-07-24 18:13 | MB ---
cc: Farhan Lorenzana MD, PhD Farhan Lorenzana MD, PhD DATE OF CONSULT: 07/24/2017 REASON FOR CONSULTATION: Multiple sclerosis. HISTORY OF PRESENT ILLNESS: Ms. Bertrand is a pleasant 67-year-old female who has a long history of multiple sclerosis documented by MRI finding. She is not ____ on the immunomodulators. She was recently admitted for symptomatic bradycardia and hypertension and was discharged home. She also had ascites and had a paracentesis performed, as she re-presented to the ER with worsening edema, shortness of breath and chest congestion. She also notes increasing weakness of the leg since Friday and urinary incontinence as well. She states she had a similar episode of lower extremity weakness in 2005, diagnosed as an MS exacerbation. She thinks she may have received steroids in the past. Steroids have helped her multiple sclerosis. She was seen by Dr. Buitrago of the cardiology service who diagnosed recurrent right-sided congestive heart failure and recommended diuretic therapy and cardiothoracic surgery consultation to assess risk of tricuspid valve surgery in the future. PAST MEDICAL HISTORY: History of multiple sclerosis, history of chronic atrial fibrillation, asthma, aortic valve disease treated with St. Bao aortic valve in 1989, congestive heart failure, coronary artery disease, diabetes, hyperlipidemia, hypertension. She has non-Hodgkin's B-cell lymphoma treated with chemotherapy periodically, pacemaker implantation, severe tricuspid regurgitation demonstrated on previous echocardiogram. MEDICATIONS: Coumadin 6 mg daily, Lasix 40 mg b.i.d., Zyloprim 300 mg daily, cholecalciferol, Pravachol, Zaroxolyn, Aldactone, Imdur, Protonix, Lioresal, magnesium oxide, Zanaflex 4 mg daily, Lopressor 6.25 mg b.i.d., [place] as needed for pain. NEUROLOGIC EXAMINATION: Blood pressure 92/55, pulse is 60, respiratory rate is 20, temperature ____ degrees. Higher cortical function is normal. Cranial nerves II-XII are normal. On motor exam, she has 5/5 strength of all groups in both upper extremities. Reflexes are symmetric. She is weak in the lower extremities, 4/5 iliopsoas, 4+/5 quads, 4/5 hamstrings symmetric, 4/5 tibialis anterior. Sensory examination is intact. IMPRESSION: Probable multiple sclerosis exacerbation. RECOMMENDATIONS: I would like to get a CT scan of the brain as well as the spine to rule out cord compressing lesion. We could consider lumbar puncture as well, although she is on Coumadin. That would have to be held. I would be reluctant to hold that given her cardiac status. If not contraindicated from the cardiac status, consider Solu-Medrol although we will await the results of the CT scan. Farhan Lorenzana MD, PhD SHABNAM//sandra , 05:07 PM , 05:43 PM
[2017-07-24] MEDS: WARFARIN SOD 6 MG TAB PO SCH (18:30)
--- NOTE | 2017-07-24 20:45 | RADRPT ---
EXAM DATE/TIME: 07/24/2017 19:34 [facility] COMPARISON: No previous studies available for comparison. INDICATIONS : Head pain, possible MS. RADIATION DOSE: 36.08 CTDIvol (mGy) MEDICAL HISTORY : Cardiovascular disease. Hypertension. Diabetes mellitus type 2.TIA x3 SURGICAL HISTORY : Pacemaker. Hysterectomy. ENCOUNTER: Initial ACUITY: 1 day PAIN SCALE: 7/10 LOCATION: Bilateral cranial TECHNIQUE: Multiple contiguous axial images were obtained of the head. Using automated exposure control and adj ustment of the mA and/or kV according to patient size, radiation dose was kept as low as reasonably a chievable to obtain optimal diagnostic quality images. DICOM format image data is available electro nically for review and comparison. FINDINGS: There is an old infarct involving the right frontoparietal region. There is also an old lacunar infar ct involving the left cerebellar hemisphere. Moderate periventricular and subcortical white matter sm all vessel ischemic changes are noted bilaterally. There is no acute infarct, midline shift or extra axial fluid collections. The ventricles, sulci and cisterns are normal in size shape and position for the patient's age. CONCLUSION: Old infarct involving the right frontoparietal region. Old lacunar infarct involving the left cerebel lar hemisphere. Moderate periventricular and subcortical white matter small vessel ischemic changes b ilaterally. No acute infarct, acute hemorrhage, mass effect or extra-axial fluid collections. Jaycob Camara MD on July 24, 2017 at 20:42 Board Certified Radiologist. This report was verified electronically.
--- NOTE | 2017-07-24 23:17 | RADRPT ---
EXAM DATE/TIME: 07/24/2017 19:34 [facility] COMPARISON: No previous studies available for comparison. INDICATIONS : Neck pain, possible MS RADIATION DOSE: 18.47 CTDIvol (mGy) MEDICAL HISTORY : Diabetes mellitus type 2. Hypertension. Cardiovascular diseaseTIAx3 SURGICAL HISTORY : Hysterectomy. Pacemaker. Aortic Valve Replacement, Left Oopherectomy ENCOUNTER: Initial ACUITY: 1 day PAIN SCALE: 8/10 LOCATION: Bilateral neck region. TECHNIQUE: Volumetric scanning of the cervical spine was performed. Multiplanar reconstructions in the sagittal, coronal and oblique axial planes were performed. Using automated exposure control and adjustment o f the mA and/or kV according to patient size, radiation dose was kept as low as reasonably achievable to obtain optimal diagnostic quality images. DICOM format image data is available electronically f or review and comparison. FINDINGS: VERTEBRAE: Normal vertebral body height. ALIGNMENT: No evidence of subluxation. C2-C3: The bony spinal canal is normal in size. No evidence of disc bulge or herniation. The neural forami na are bilaterally patent. C3-C4: The bony spinal canal is normal in size. No evidence of disc bulge or herniation. Mild left neural f oraminal narrowing is noted. The right neural foramen is patent. C4-C5: The bony spinal canal is normal in size. No evidence of disc bulge or herniation. Mild bilateral for aminal narrowing is noted. C5-C6: Loss of disc height is noted. Mild diffuse disc osteophyte complex is noted. Mild spinal stenosis and moderate to severe bilateral foraminal narrowing is noted. No focal disc herniation is noted. C6-C7: The bony spinal canal is normal in size. No evidence of disc bulge or herniation. The neural forami na are bilaterally patent. C7-T1: The bony spinal canal is normal in size. No evidence of disc bulge or herniation. The neural forami na are bilaterally patent. CONCLUSION: 1. Mild spinal stenosis and moderate to severe bilateral foraminal narrowing at C5-6. 2. Mild left neuroforaminal narrowing at C3-4 and mild bilateral foraminal narrowing at C4-5. 3. No acute fracture or prevertebral soft tissue swelling. 1. Jaycob Cmaara MD on July 24, 2017 at 23:10 Board Certified Radiologist. This report was verified electronically.
--- NOTE | 2017-07-24 23:28 | RADRPT ---
EXAM DATE/TIME: 07/24/2017 19:38 [facility] COMPARISON: No previous studies available for comparison. INDICATIONS : Mid back pain, possible MS. RADIATION DOSE: 33.40 CTDIvol (mGy) MEDICAL HISTORY : Diabetes mellitus type 2. Hypertension. Cardiovascular diseaseTIAx3 SURGICAL HISTORY : Hysterectomy. Pacemaker.Aortic Valve Replacement, Left Oopherectomy ENCOUNTER: Initial ACUITY: 1 day PAIN SCALE: 8/10 LOCATION: Bilateral mid back region. TECHNIQUE: Volumetric scanning of the thoracic spine was performed. Multiplanar reconstructions in the sagittal , coronal and oblique axial planes were performed. Using automated exposure control and adjustment o f the mA and/or kV according to patient size, radiation dose was kept as low as reasonably achievable to obtain optimal diagnostic quality images. DICOM format image data is available electronically f or review and comparison. FINDINGS: Diffuse degenerative changes are noted throughout the thoracic spine. There is no acute compression f racture or subluxation of the thoracic spine. Tiny right paracentral disc bulge is noted at T6-7 resu lting in mild right neuroforaminal narrowing but no spinal stenosis. Tiny central disc bulges noted a t T7-8 resulting in no spinal stenosis or neuroforaminal narrowing. Mild diffusely asymmetric disc bu lge to the right is noted at T8-9 resulting in no spinal stenosis or neural foraminal narrowing. Mini mal diffuse disc bulge is noted at T9-10 resulting in no spinal stenosis or neuroforaminal narrowing. Minimal diffuse disc bulge and facet joint hypertrophy are noted bilaterally at T10-11 and T11-12 re sulting in minimal bilateral foraminal narrowing but no spinal stenosis.. CONCLUSION: Degenerative changes throughout the thoracic spine. Multilevel disc bulges and foraminal narrowing as described above. No significant spinal stenosis. No acute compression fracture or subluxation. Jaycob Camara MD on July 24, 2017 at 23:16 Board Certified Radiologist. This report was verified electronically.
[2017-07-25] VITALS (11 sets, daily range): BP systolic 97–132; BP diastolic 52–62; PULSE 57–63; RESP 17–20; TEMP 97.8–98.6; O2SAT 95–96
[2017-07-25] MEDS: ISOSORBIDE MONONITRATE 30 MG CR TAB (IMDUR) PO SCH (06:16)
[2017-07-25] MEDS: ACETAMINOPHEN/HYDROcodone 325 MG/5 MG TAB PO PRN ×2 (06:16→21:33)
[2017-07-25] MEDS ORDERED: guaiFENesin/DEXTROMETHORPHAN 200 MG/20 MG/10 ML CUP PO ONE (07:00)
[2017-07-25] MEDS: SODIUM CHLORIDE 0.9% FLUSH 10 ML FLUSH IV FLUSH SCH ×2 (07:38→21:45)
[2017-07-25] MEDS: ALLOPURINOL 300 MG TAB PO SCH (07:46)
[2017-07-25] MEDS: ONDANSETRON ODT 4 MG TAB PO SCH ×2 (07:46→21:47)
[2017-07-25] MEDS: BACLOFEN 20 MG TAB PO SCH ×4 (07:46→21:45)
[2017-07-25] MEDS: METOLAZONE 5 MG TAB PO SCH (07:47)
[2017-07-25] MEDS: MAGNESIUM OXIDE 400 MG TAB PO SCH ×2 (07:47→21:47)
[2017-07-25] MEDS: SPIRONOLACTONE 25 MG TAB PO SCH ×2 (07:49→17:18)
[2017-07-25] MEDS: PANTOPRAZOLE SOD 20 MG DELAYED RELEASE TAB PO SCH ×2 (07:49→21:48)
[2017-07-25] MEDS: POTASSIUM CHLORIDE 20 MEQ CONTROLLED RELEASE TAB PO SCH (07:50)
[2017-07-25] MEDS: FUROSEMIDE 40 MG/4 ML VIAL IVP SCH ×2 (07:50→17:18)
[2017-07-25] MEDS: METOPROLOL TARTRATE 25 MG TAB PO SCH ×2 (07:51→21:45)
[2017-07-25] MEDS: CHOLECALCIFEROL (VIT D3) 1000 UNIT TAB PO SCH (07:57)
--- NOTE | 2017-07-25 07:58 | HHI.PR ---
Subjective Remarks Feels tired. Able to move legs today. Still feels weakness in her legs. No fever or chills. Still with shortness of breath however improved since yesterday. No much lower extremity edema. No fever or chills. No cough Objective Vitals Vital Signs Date Time Temp Pulse Resp B/P (MAP) Pulse Ox O2 Delivery O2 Flow Rate FiO2 07/25/17 04:00 98.2 60 19 97/57 (70) 95 07/25/17 03:46 60 07/25/17 00:00 98.1 57 19 97/57 (70) 95 07/24/17 23:41 60 07/24/17 20:01 96 21 07/24/17 20:00 97.8 60 18 111/63 (79) 96 07/24/17 19:40 55 07/24/17 16:00 53 07/24/17 16:00 98.0 63 20 106/59 (75) 95 07/24/17 12:00 60 07/24/17 12:00 97.8 60 20 111/61 (78) 99 07/24/17 08:00 98.0 60 20 92/55 (67) 96 07/24/17 08:00 60 I/O 07/24/17 07/24/17 07/24/17 07/25/17 07/25/17 07/25/17 07:00 15:00 23:00 07:00 15:00 23:00 Intake Total 120 ml 690 ml 500 ml Output Total 1000 ml 1100 ml 1200 ml Balance -880 ml -410 ml -700 ml Intake Oral 120 ml 690 ml 500 ml Output Urine Total 1000 ml 1100 ml 1200 ml # Bowel Movements 0 0 0 Result Diagram: 07/23/17 1820 07/24/17 0641 Imaging Last Impressions Thoracic Spine CT 07/24/17 0000 Signed Impressions: Service Date/Time: July 19:38 - CONCLUSION: Degenerative changes throughout the thoracic spine. Multilevel disc bulges and foraminal narrowing as described above. No significant spinal stenosis. No acute compression fracture or subluxation. 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 Old lacunar infarct involving the left cerebellar hemisphere. Moderate periventricular and subcortical white matter small vessel ischemic changes bilaterally. No acute infarct, acute hemorrhage, mass effect or extra-axial fluid collections. Jaycob Camara MD Cervical Spine CT 07/24/17 0000 Signed Impressions: Service Date/Time: July 19:34 - CONCLUSION: 1. Mild spinal stenosis and moderate to severe bilateral foraminal narrowing at C5-6. 2. Mild left neuroforaminal narrowing at C3-4 and mild bilateral foraminal narrowing at C4-5. 3. No acute fracture or prevertebral soft tissue swelling. 1. Jaycob Camara MD Chest X-Ray 07/23/17 1716 Signed Impressions: Service Date/Time: Sunday, July 23, 2017 17:43 - CONCLUSION: Stable chest with no acute disease. Chapito Desouza MD Objective Remarks GENERAL: Chronically ill-appearing female SKIN: Extensive venous stasis changes bilateral lower extremities. CARDIOVASCULAR: Normal rate, regular rhythm. 2 out of 6 murmur over the right SB and apex. RESPIRATORY: Clear to auscultation. Breath sounds equal bilaterally. No wheezes , rales, or rhonchi. GASTROINTESTINAL: Abdomen is morbidly obese. Nontender. Some edema and probable ascites. MUSCULOSKELETAL: Bilateral lower extremities with 2+ edema. NEUROLOGICAL: Awake and alert. Cranial nerves II through XII grossly intact. Motor and sensory grossly within normal limits upper extremities. Weakness lower extremities 4 out of 5. Normal speech. A/P Problem List: (1) Anasarca ICD Code: R60.1 - Generalized edema Status: Acute (2) Severe tricuspid regurgitation ICD Code: I07.1 - Rheumatic tricuspid insufficiency Status: Acute (3) Permanent atrial fibrillation ICD Code: I48.2 - Chronic atrial fibrillation (4) Ascites ICD Code: R18.8 - Other ascites (5) History of aortic valve replacement ICD Code: Z95.2 - Presence of prosthetic heart valve Status: Chronic (6) CKD (chronic kidney disease) stage 3, GFR 30-59 ml/min ICD Code: N18.3 - Chronic kidney disease, stage 3 (moderate) (7) Follicular lymphoma grade I ICD Code: C82.00 - Follicular lymphoma grade I, unspecified site (8) Pancytopenia ICD Code: D61.818 - Other pancytopenia (9) H/O multiple sclerosis ICD Code: Z86.69 - Personal history of other diseases of the nervous system and sense organs Assessment and Plan (1) Anasarca ICD Code: R60.1 - Generalized edema Status: Acute Plan: Concern for valvulopathy/right heart failure as the cause. Patient has severe tricuspid regurgitation. Recent workup by GI and oncology. - Cardiology consulted. -Treated with IV Lasix 40 mg twice daily, continue metolazone and spironolactone. BNP pending Medicine patient is status post paracentesis 7 days ago and 5.7 L was taken out. Fluid was negative for malignant cells. -Restrict fluid (2) Severe tricuspid regurgitation ICD Code: I07.1 - Rheumatic tricuspid insufficiency Status: Acute Plan: Cardiology consulted as above. Consult cardio thoracic surgeon for evaluation (3) Permanent atrial fibrillation ICD Code: I48.2 - Chronic atrial fibrillation Plan: Rate controlled. Continue Coumadin. INR 2.1 on admission. Goal is around 2.5. Increase Coumadin to 6 mg daily. Monitor INR. Consult pharmacy (4) Ascites ICD Code: R18.8 - Other ascites Plan: It seems that she is reaccumulating fluid. Status post paracentesis 7 days ago. -continue to monitor. May need repeat paracentesis if she is not responding enough to IV diuretics. (5) History of aortic valve replacement ICD Code: Z95.2 - Presence of prosthetic heart valve Status: Chronic Plan: Anticoagulated as above (6) CKD (chronic kidney disease) stage 3, GFR 30-59 ml/min ICD Code: N18.3 - Chronic kidney disease, stage 3 (moderate) Plan: Monitor closely with diuretics (7) Follicular lymphoma grade I ICD Code: C82.00 - Follicular lymphoma grade I, unspecified site Plan: consult hem/onc (8) Pancytopenia ICD Code: D61.818 - Other pancytopenia Plan: placed in isolation Consult hem/onc for eval (9) H/O multiple sclerosis ICD Code: Z86.69 - Personal history of other diseases of the nervous system and sense organs Plan: poss exacerbation at this time consult neurology for further eval . CT spine and brain reviewed consult pt/ot Discussed Condition With pt, nurse Alisson Alvarado MD Jul 25, 2017 07:58
[2017-07-25] MEDS: RESP: ALBUTEROL 2.5 MG/IPRATROPIUM 0.5 MG NEB (PRN) NEB ×3 (08:04→20:28)
--- NOTE | 2017-07-25 09:01 | PD.CARD.PN ---
Subjective Subjective Remarks Mild dyspnea this morning, responsive to breathing treatment. No PND, CP, palpitations, dizziness. Objective Medications Item Value Date Time Warfarin Sodium 6 mg 07/24/17 1600 (Coumadin) DAILY@1600/PO 07/24/17 1830 Furosemide 40 mg 07/24/17 0900 (Lasix Inj) BID@/IVP 07/25/17 0750 Pravastatin Sodium 10 mg 07/24/17 0900 (Pravachol) 2XWEEK/PO Metolazone 5 mg 07/24/17 0900 (Zaroxolyn) DAILY/PO 07/25/17 0747 Potassium Chloride 20 meq 07/24/17 0900 (KCl) DAILY/PO 07/25/17 0750 Spironolactone 25 mg 07/24/17 0900 (Aldactone) BID@/PO 07/25/17 0749 Isosorbide 30 mg 07/24/17 0700 Mononitrate DAILY@0700/PO 07/25/17 0616 (Imdur) Metoprolol 6.25 mg 07/23/17 2100 Tartrate Q12HR/PO (Lopressor) Current Medications Medications (Trade) Dose Ordered Sig/Love Route Start Time Stop Time Status Last Admin (NS Flush) 2 ml BID IV FLUSH 07/23/17 21:00 07/25/17 07:38 (NS Flush) 2 ml UNSCH PRN IV FLUSH 07/23/17 20:30 (Lasix Inj) 40 mg BID@ IVP 07/24/17 09:00 07/25/17 07:50 (Zyloprim) 300 mg DAILY PO 07/24/17 09:00 07/25/17 07:46 (Lioresal) 20 mg QID PO 07/23/17 21:00 07/25/17 07:46 (Vitamin D3) 2,000 units DAILY PO 07/24/17 09:00 07/25/17 07:57 ([place] 5-325 Mg) 1 tab Q6H PRN PO 07/23/17 20:30 07/25/17 06:16 (Imdur) 30 mg DAILY@0700 PO 07/24/17 07:00 07/25/17 06:16 (Pravachol) 10 mg 2XWEEK PO 07/24/17 09:00 (Mag-Ox) 400 mg BID PO 07/23/17 21:00 07/25/17 07:47 (Zaroxolyn) 5 mg DAILY PO 07/24/17 09:00 07/25/17 07:47 (Lopressor) 6.25 mg Q12HR PO 07/23/17 21:00 07/24/17 22:23 (Singulair) 10 mg HS PO 07/23/17 21:00 07/24/17 22:22 (KCl) 20 meq DAILY PO 07/24/17 09:00 07/25/17 07:50 (Aldactone) 25 mg BID@,18 PO 07/24/17 09:00 07/25/17 07:49 (Zanaflex) 4 mg HS PO 07/23/17 21:00 07/24/17 22:23 (Protonix) 20 mg BID PO 07/23/17 23:00 07/25/17 07:49 (Zofran Odt) 4 mg BID PO 07/23/17 21:00 07/25/17 07:46 (Coumadin) 6 mg DAILY@1600 PO 07/24/17 16:00 07/24/17 18:30 (Duoneb Neb) 1 ampule Q4HR NEB PRN NEB 07/24/17 01:30 07/25/17 08:04 Vital Signs / I&O Vital Signs Date Time Temp Pulse Resp B/P (MAP) Pulse Ox O2 Delivery O2 Flow Rate FiO2 07/25/17 08:05 96 21 07/25/17 08:04 98.1 60 17 108/54 (72) 95 07/25/17 04:00 98.2 60 19 97/57 (70) 95 07/25/17 03:46 60 07/25/17 00:00 98.1 57 19 97/57 (70) 95 07/24/17 23:41 60 07/24/17 20:01 96 21 07/24/17 20:00 97.8 60 18 111/63 (79) 96 07/24/17 19:40 55 07/24/17 16:00 53 07/24/17 16:00 98.0 63 20 106/59 (75) 95 07/24/17 12:00 60 07/24/17 12:00 97.8 60 20 111/61 (78) 99 I/O 07/24/17 07/24/17 07/24/17 07/25/17 07/25/17 07/25/17 07:00 15:00 23:00 07:00 15:00 23:00 Intake Total 120 ml 690 ml 500 ml Output Total 1000 ml 1100 ml 1200 ml Balance -880 ml -410 ml -700 ml Intake Oral 120 ml 690 ml 500 ml Output Urine Total 1000 ml 1100 ml 1200 ml # Bowel Movements 0 0 0 Physical Exam GENERAL: Well developed, well nourished. No acute distress. HEENT: Jugular venous pressure is 12 cm water. CHEST: Lungs clear to auscultation anteriorly. CARDIAC: Regular rate and rhythm without S3, S4. II/ HUONG base. [place] AVR sounds. ABDOMEN: Soft, nontender, no hepatosplenomegaly. Bowel sounds present. EXTREMITIES: No clubbing, cyanosis. 1+ pretibial edema. Assessment and Plan Problem List: (1) Congestive heart failure (CHF) ICD Codes: I50.9 - Heart failure, unspecified Status: Acute Plan: Improved since admission with good diuresis. Pedal edema decreased, JVP down. Dr. Ingram's input regarding tricuspid valve surgery noted, appreciated. Unfortunately will be difficult to prevent repeated episodes of fluid retention until the tricuspid valve is repaired. REC continue diuresis, f/u BMP's OK by me to treat with steroids for her MS if felt necessary; if lumbar puncture needed and warfarin stopped, would recommend heparin drip bridge once INR < 1.8. will f/u PRN over the weekend, can discharge when most of pedal edema resolved (2) CAD (coronary artery disease) ICD Codes: I25.10 - Atherosclerotic heart disease of [place] coronary artery without angina pectoris Status: Chronic Plan: Known totally occluded, well-collateralized RCA on cath 01/2017. Infrequent angina overall. Rec continue medical therapy. Increase isosorbide dosing. (3) Chronic atrial fibrillation ICD Codes: I48.2 - Chronic atrial fibrillation Status: Chronic Plan: Stable, chronic atrial fib. No HR control issues. Continue warfarin. If lumbar puncture needed and warfarin stopped, would recommend heparin drip bridge once INR drifts < 1.8. (4) History of aortic valve replacement ICD Codes: Z95.2 - Presence of prosthetic heart valve Status: Chronic Plan: Normal AVR function by exam, most recent echoes. Continue anticoagulation therapy. If lumbar puncture needed and warfarin stopped, would recommend heparin drip bridge once INR drifts < 1.8. (5) History of cardiac pacemaker ICD Codes: Z95.0 - Presence of cardiac pacemaker Status: Chronic (6) HTN (hypertension) ICD Codes: I10 - Essential (primary) hypertension Status: Chronic Plan: Hypertension not active issue. Problem Qualifiers (1) Congestive heart failure (CHF): Qualified Codes: I50.9 - Heart failure, unspecified (2) CAD (coronary artery disease): Qualified Codes: I25.118 - Atherosclerotic heart disease of [place] coronary artery with other forms of angina pectoris (3) HTN (hypertension): Qualified Codes: I10 - Essential (primary) hypertension Gui Buitrago MD Jul 25, 2017 09:01
[2017-07-25 14:49] LABS: HEMATOCRIT 27.5 % (35.0-46.0); HEMOGLOBIN 9.4 GM/DL (11.6-15.3); MEAN CELL VOLUME 82.8 FL (80.0-100.0); MEAN CORPUSCULAR HEMOGLOBIN 28.3 PG (27.0-34.0); MEAN CORPUSCULAR HGB CONC 34.1 % (32.0-36.0); MEAN PLATELET VOLUME 7.9 FL (7.0-11.0); PLATELET COUNT 94 TH/MM3 (150-450); RED BLOOD COUNT 3.32 MIL/MM3 (4.00-5.30); RED CELL DISTRIBUTION WIDTH 18.4 % (11.6-17.2); WHITE BLOOD COUNT 1.3 TH/MM3 (4.0-11.0)
[2017-07-25 16:38] LABS: BANDS 4 % (0-6); BASOPHILS 1 % (0-2); LYMPHOCYTES 13 % (9-44); METAMYELOCYTES 1 % (0-1); MONOCYTES 26 % (0-8); NEUTROPHIL # MANUAL DIFF 0.7 TH/MM3 (1.8-7.7); POLYS (SEG NEUTROPHILS) 51 % (16-70)
[2017-07-25 16:40] LABS: OVALOCYTES 1+ (NORMAL)
[2017-07-25] MEDS: WARFARIN SOD 6 MG TAB PO SCH (17:18)
--- NOTE | 2017-07-25 18:46 | HHI.PR ---
Review/Management Diagnosis probable MS exacerbation. SHe states she had similar weakness in the past and this responded well to iv steroids Plan solumedrol 125 mg q 6 hr iv for three days Diagnosis/Plan: Subjective Subjective Comments Patient notices spasm in UE and LE no change in BLE weakness Active Medications Current Medications Medications (Trade) Dose Ordered Sig/Love Route Start Time Stop Time Status Last Admin (NS Flush) 2 ml BID IV FLUSH 07/23/17 21:00 07/25/17 07:38 (NS Flush) 2 ml UNSCH PRN IV FLUSH 07/23/17 20:30 (Lasix Inj) 40 mg BID@ IVP 07/24/17 09:00 07/25/17 17:18 (Zyloprim) 300 mg DAILY PO 07/24/17 09:00 07/25/17 07:46 (Lioresal) 20 mg QID PO 07/23/17 21:00 07/25/17 17:18 (Vitamin D3) 2,000 units DAILY PO 07/24/17 09:00 07/25/17 07:57 ([place] 5-325 Mg) 1 tab Q6H PRN PO 07/23/17 20:30 07/25/17 06:16 (Pravachol) 10 mg 2XWEEK PO 07/24/17 09:00 (Mag-Ox) 400 mg BID PO 07/23/17 21:00 07/25/17 07:47 (Zaroxolyn) 5 mg DAILY PO 07/24/17 09:00 07/25/17 07:47 (Lopressor) 6.25 mg Q12HR PO 07/23/17 21:00 07/24/17 22:23 (Singulair) 10 mg HS PO 07/23/17 21:00 07/24/17 22:22 (KCl) 20 meq DAILY PO 07/24/17 09:00 07/25/17 07:50 (Aldactone) 25 mg BID@ PO 07/24/17 09:00 07/25/17 17:18 (Zanaflex) 4 mg HS PO 07/23/17 21:00 07/24/17 22:23 (Protonix) 20 mg BID PO 07/23/17 23:00 07/25/17 07:49 (Zofran Odt) 4 mg BID PO 07/23/17 21:00 07/25/17 07:46 (Coumadin) 6 mg DAILY@1600 PO 07/24/17 16:00 07/25/17 17:18 (Duoneb Neb) 1 ampule Q4HR NEB PRN NEB 07/24/17 01:30 07/25/17 13:04 (Imdur) 60 mg DAILY@0700 PO 07/26/17 07:00 Allergies Allergies Coded Allergies ampicillin (Verified Allergy, Severe, Hives, 07/23/17) aspirin (Verified Allergy, Severe, Hives, 07/23/17) cashew nut (Verified Allergy, Severe, Anaphylaxis, 07/23/17) ciprofloxacin (Verified Allergy, Severe, Hives, 07/23/17) doxycycline (Verified Allergy, Severe, Anaphylaxis, 07/23/17) erythromycin base (Verified Allergy, Severe, Anaphylaxis, 07/23/17) iodine (Verified Allergy, Severe, Shortness of Breath, 07/23/17) minocycline (Verified Allergy, Severe, Anaphylaxis, 07/23/17) morphine (Verified Allergy, Severe, Anaphylaxis, 07/23/17) penicillin G (Verified Allergy, Severe, Hives, 07/23/17) potassium iodide (Verified Allergy, Severe, Shortness of Breath, 07/23/17) povidone-iodine (Verified Allergy, Severe, Shortness of Breath, 07/23/17) sodium iodide (Verified Allergy, Severe, Shortness of Breath, 07/23/17) sodium iodide (Verified Allergy, Severe, Shortness of Breath, 07/23/17) tigecycline (Verified Allergy, Severe, Anaphylaxis, 07/23/17) bee venom protein (honey bee) (Verified Allergy, Unknown, Shortness of Breath , 07/23/17) cephalexin (Verified Allergy, Unknown, Hives, 07/23/17) codeine (Verified Allergy, Unknown, Hives, 07/23/17) diclofenac (Verified Allergy, Unknown, Hives, 07/23/17) etodolac (Verified Allergy, Unknown, Hives, 07/23/17) flurbiprofen (Verified Allergy, Unknown, Hives, 07/23/17) gentamicin (Verified Allergy, Unknown, Hives, 07/23/17) indomethacin (Verified Allergy, Unknown, Hives, 07/23/17) ketoprofen (Verified Allergy, Unknown, Hives, 07/23/17) ketorolac (Verified Allergy, Unknown, Hives, 07/23/17) metronidazole (Verified Allergy, Unknown, Hives, 07/23/17) naproxen (Verified Allergy, Unknown, Hives, 07/23/17) oxaprozin (Verified Allergy, Unknown, Hives, 07/23/17) oxycodone (Verified Allergy, Unknown, Hives, 07/23/17) propoxyphene (Verified Allergy, Unknown, Hives, 07/23/17) Uncoded Allergies KEFLIN ( Allergy, Severe, Hives, 12/16/16) Exam I&O / VS 07/25/17 07/25/17 07/26/17 15:00 23:00 07:00 Intake Total 500 ml Output Total 1200 ml Balance -700 ml Intake Oral 500 ml Output Urine Total 1200 ml # Bowel Movements 0 Vital Signs Date Time Temp Pulse Resp B/P (MAP) Pulse Ox O2 Delivery O2 Flow Rate FiO2 07/25/17 08:05 96 21 07/25/17 08:04 98.1 60 17 108/54 (72) 95 07/25/17 07:50 60 07/25/17 04:00 98.2 60 19 97/57 (70) 95 07/25/17 03:46 60 07/25/17 00:00 98.1 57 19 97/57 (70) 95 07/24/17 23:41 60 07/24/17 20:01 96 21 07/24/17 20:00 97.8 60 18 111/63 (79) 96 07/24/17 19:40 55 Exam Comments alert, oriented, speech normal CN intact MOTOR 5./5 BUE, 3/5 BLE Objective Radiology Results CT cervical and thoracic spine--no sign of severe stenosis Micro and Labs Laboratory Tests Test 07/25/17 14:10 White Blood Count 1.3 Red Blood Count 3.32 Hemoglobin 9.4 Hematocrit 27.5 Mean Corpuscular Volume 82.8 Mean Corpuscular Hemoglobin 28.3 Mean Corpuscular Hemoglobin Concent 34.1 Red Cell Distribution Width 18.4 Platelet Count 94 Mean Platelet Volume 7.9 CBC Comment AUTO DIFF Differential Total Cells Counted 100 Neutrophils % (Manual) 51 Band Neutrophils % 4 Lymphocytes % 13 Monocytes % 26 Eosinophils % 4 Basophils % 1 Neutrophils # (Manual) 0.7 Metamyelocytes 1 Differential Comment FINAL DIFF MANUAL Platelet Estimate LOW Platelet Morphology Comment NORMAL Ovalocytes 1+ Farhan Lorenzana MD PhD Jul 25, 2017 18:46
[2017-07-25] MEDS: methylPREDNISolone SOD SUCC 125 MG/2 ML VIAL IV PUSH SCH (21:36)
[2017-07-25] MEDS: MONTELUKAST SODIUM 10 MG TAB PO SCH (21:52)
[2017-07-26] VITALS: PULSE 60
[2017-07-26] MEDS: methylPREDNISolone SOD SUCC 125 MG/2 ML VIAL IV PUSH SCH ×4 (02:54→21:02)
[2017-07-26 04:00] VITALS: BP 114/57; PULSE 60; RESP 20; TEMP 97.6; O2SAT 96
[2017-07-26 08:00] VITALS: BP 128/60; PULSE 60; RESP 20; TEMP 97.4; O2SAT 95
[2017-07-26] MEDS: MAGNESIUM OXIDE 400 MG TAB PO SCH ×2 (09:20→21:04)
[2017-07-26] MEDS: FUROSEMIDE 40 MG/4 ML VIAL IVP SCH ×2 (09:20→17:58)
[2017-07-26] MEDS: BACLOFEN 20 MG TAB PO SCH ×4 (09:20→21:04)
[2017-07-26] MEDS: ALLOPURINOL 300 MG TAB PO SCH (09:21)
[2017-07-26] MEDS: CHOLECALCIFEROL (VIT D3) 1000 UNIT TAB PO SCH (09:21)
[2017-07-26] MEDS: PANTOPRAZOLE SOD 20 MG DELAYED RELEASE TAB PO SCH ×2 (09:21→21:03)
[2017-07-26] MEDS: METOPROLOL TARTRATE 25 MG TAB PO SCH ×2 (09:21→21:03)
[2017-07-26] MEDS: ONDANSETRON ODT 4 MG TAB PO SCH ×2 (09:21→21:03)
[2017-07-26] MEDS: SPIRONOLACTONE 25 MG TAB PO SCH ×2 (09:21→17:58)
[2017-07-26] MEDS: ISOSORBIDE MONONITRATE 60 MG CR TAB (IMDUR) PO SCH (09:22)
[2017-07-26] MEDS: METOLAZONE 5 MG TAB PO SCH (09:22)
[2017-07-26] MEDS: POTASSIUM CHLORIDE 20 MEQ CONTROLLED RELEASE TAB PO SCH (09:22)
[2017-07-26 12:00] VITALS: BP 100/51; PULSE 60; RESP 20; TEMP 97.4; O2SAT 95
[2017-07-26] MEDS: SODIUM CHLORIDE 0.9% FLUSH 10 ML FLUSH IV FLUSH SCH ×2 (13:03→21:02)
--- NOTE | 2017-07-26 14:44 | HHI.PR ---
Subjective Remarks Feels better. Can move her legs however she still feels very weak. Less shortness of breath, denies wheezing. Less cough. No nausea vomiting no diarrhea or constipation. Does not have much appetite. She is anxious and at times feels depressed, agrees to see up psychiatry DrGarret Objective Vitals Vital Signs Date Time Temp Pulse Resp B/P (MAP) Pulse Ox O2 Delivery O2 Flow Rate FiO2 07/26/17 12:00 97.4 60 20 100/51 (67) 95 07/26/17 08:00 97.4 60 20 128/60 (82) 95 07/26/17 04:00 97.6 60 20 114/57 (76) 96 07/26/17 00:00 60 07/25/17 23:43 95 07/25/17 22:49 98.0 63 18 105/52 (69) 96 07/25/17 20:00 98.6 60 20 125/60 (81) 96 07/25/17 20:00 60 07/25/17 16:00 97.8 60 20 132/62 (85) 96 I/O 07/25/17 07/25/17 07/25/17 07/26/17 07/26/17 07/26/17 07:00 15:00 23:00 07:00 15:00 23:00 Intake Total 500 ml 600 ml 480 ml Output Total 1200 ml 600 ml 1000 ml Balance -700 ml 0 ml -520 ml Intake Oral 500 ml 600 ml 480 ml Output Urine Total 1200 ml 600 ml 1000 ml # Bowel Movements 0 0 Result Diagram: 07/25/17 1410 07/24/17 0641 Imaging Last Impressions Thoracic Spine CT 07/24/17 0000 Signed Impressions: Service Date/Time: July 19:38 - CONCLUSION: Degenerative changes throughout the thoracic spine. Multilevel disc bulges and foraminal narrowing as described above. No significant spinal stenosis. No acute compression fracture or subluxation. 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 Old lacunar infarct involving the left cerebellar hemisphere. Moderate periventricular and subcortical white matter small vessel ischemic changes bilaterally. No acute infarct, acute hemorrhage, mass effect or extra-axial fluid collections. Jaycob Camara MD Cervical Spine CT 07/24/17 0000 Signed Impressions: Service Date/Time: July 19:34 - CONCLUSION: 1. Mild spinal stenosis and moderate to severe bilateral foraminal narrowing at C5-6. 2. Mild left neuroforaminal narrowing at C3-4 and mild bilateral foraminal narrowing at C4-5. 3. No acute fracture or prevertebral soft tissue swelling. 1. Jaycob Camara MD Chest X-Ray 07/23/17 1716 Signed Impressions: Service Date/Time: Sunday, July 23, 2017 17:43 - CONCLUSION: Stable chest with no acute disease. Chapito Desouza MD Objective Remarks GENERAL: Chronically ill-appearing female SKIN: Extensive venous stasis changes bilateral lower extremities. CARDIOVASCULAR: Normal rate, regular rhythm. 2 out of 6 murmur over the right SB and apex. RESPIRATORY: Clear to auscultation. Breath sounds equal bilaterally. No wheezes , rales, or rhonchi. GASTROINTESTINAL: Abdomen is morbidly obese. Nontender. Some edema and probable ascites. MUSCULOSKELETAL: Bilateral lower extremities with 2+ edema. NEUROLOGICAL: Awake and alert. Cranial nerves II through XII grossly intact. Motor and sensory grossly within normal limits upper extremities. Weakness lower extremities 4 out of 5. Normal speech. A/P Problem List: (1) Anasarca ICD Code: R60.1 - Generalized edema Status: Acute (2) Severe tricuspid regurgitation ICD Code: I07.1 - Rheumatic tricuspid insufficiency Status: Acute (3) Permanent atrial fibrillation ICD Code: I48.2 - Chronic atrial fibrillation (4) Ascites ICD Code: R18.8 - Other ascites (5) History of aortic valve replacement ICD Code: Z95.2 - Presence of prosthetic heart valve Status: Chronic (6) CKD (chronic kidney disease) stage 3, GFR 30-59 ml/min ICD Code: N18.3 - Chronic kidney disease, stage 3 (moderate) (7) Follicular lymphoma grade I ICD Code: C82.00 - Follicular lymphoma grade I, unspecified site (8) Pancytopenia ICD Code: D61.818 - Other pancytopenia (9) H/O multiple sclerosis ICD Code: Z86.69 - Personal history of other diseases of the nervous system and sense organs Assessment and Plan (1) Anasarca ICD Code: R60.1 - Generalized edema Status: Acute Plan: Concern for valvulopathy/right heart failure as the cause. Patient has severe tricuspid regurgitation. Recent workup by GI and oncology. - Cardiology consulted. -Treated with IV Lasix 40 mg twice daily, continue metolazone and spironolactone. BNP pending Medicine patient is status post paracentesis 7 days ago and 5.7 L was taken out. Fluid was negative for malignant cells. -Restrict fluid (2) Severe tricuspid regurgitation ICD Code: I07.1 - Rheumatic tricuspid insufficiency Status: Acute Plan: Cardiology consulted as above. Consult cardio thoracic surgeon for evaluation (3) Permanent atrial fibrillation ICD Code: I48.2 - Chronic atrial fibrillation Plan: Rate controlled. Continue Coumadin. INR 2.1 on admission. Goal is around 2.5. Increase Coumadin to 6 mg daily. Monitor INR. Consult pharmacy (4) Ascites ICD Code: R18.8 - Other ascites Plan: It seems that she is reaccumulating fluid. Status post paracentesis 7 days ago. -continue to monitor. May need repeat paracentesis if she is not responding enough to IV diuretics. (5) History of aortic valve replacement ICD Code: Z95.2 - Presence of prosthetic heart valve Status: Chronic Plan: Anticoagulated as above (6) CKD (chronic kidney disease) stage 3, GFR 30-59 ml/min ICD Code: N18.3 - Chronic kidney disease, stage 3 (moderate) Plan: Monitor closely with diuretics (7) Follicular lymphoma grade I ICD Code: C82.00 - Follicular lymphoma grade I, unspecified site Plan: consult hem/onc (8) Pancytopenia ICD Code: D61.818 - Other pancytopenia Plan: placed in isolation Consult hem/onc for eval (9) H/O multiple sclerosis ICD Code: Z86.69 - Personal history of other diseases of the nervous system and sense organs Plan: poss exacerbation at this time consult neurology for further eval . CT spine and brain reviewed Started 07/25 to solumedrol 125 mg q 6 hr iv for three days per neuro recommendations consult pt/ot Also with depression /anxiety want to se psych . Consult psych Discussed Condition With pt, nurse Alisson Alvarado MD Jul 26, 2017 14:44
[2017-07-26] MEDS: WARFARIN SOD 6 MG TAB PO SCH (15:43)
[2017-07-26 16:00] VITALS: BP 121/56; PULSE 59; RESP 20; TEMP 97.2; O2SAT 97
[2017-07-26] MEDS: ACETAMINOPHEN/HYDROcodone 325 MG/5 MG TAB PO PRN (18:43)
[2017-07-26 20:00] VITALS: BP 134/62; PULSE 60; PULSE 95; RESP 18; TEMP 98.1; O2SAT 95
[2017-07-26] MEDS: MONTELUKAST SODIUM 10 MG TAB PO SCH (21:03)
[2017-07-26] MEDS: RESP: ALBUTEROL 2.5 MG/IPRATROPIUM 0.5 MG NEB (PRN) NEB (23:53)
[2017-07-27] VITALS: BP 93/53; PULSE 59; PULSE 60; RESP 20; TEMP 97.4; O2SAT 92
[2017-07-27] MEDS ORDERED: BISACODYL 10 MG SUPP RECTAL PRN (01:30)
[2017-07-27] MEDS ORDERED: MAGNESIUM HYDROXIDE SUSP 30 ML CUP PO PRN (01:30)
[2017-07-27] MEDS: methylPREDNISolone SOD SUCC 125 MG/2 ML VIAL IV PUSH SCH ×4 (01:34→20:49)
[2017-07-27 04:00] VITALS: BP 104/51; PULSE 60; RESP 19; TEMP 97.6; O2SAT 93
[2017-07-27] MEDS: ISOSORBIDE MONONITRATE 60 MG CR TAB (IMDUR) PO SCH (05:41)
[2017-07-27 06:17] LABS: HEMATOCRIT 28.2 % (35.0-46.0); HEMOGLOBIN 9.6 GM/DL (11.6-15.3); MEAN CELL VOLUME 82.2 FL (80.0-100.0); MEAN CORPUSCULAR HEMOGLOBIN 28.1 PG (27.0-34.0); MEAN CORPUSCULAR HGB CONC 34.2 % (32.0-36.0); MEAN PLATELET VOLUME 8.4 FL (7.0-11.0); PLATELET COUNT 96 TH/MM3 (150-450); RED BLOOD COUNT 3.43 MIL/MM3 (4.00-5.30); RED CELL DISTRIBUTION WIDTH 17.7 % (11.6-17.2); WHITE BLOOD COUNT 1.2 TH/MM3 (4.0-11.0)
[2017-07-27 08:00] VITALS: BP 118/56; PULSE 60; PULSE 61; RESP 20; TEMP 97.6; O2SAT 94
[2017-07-27 08:35] LABS: BANDS 1 % (0-6); LYMPHOCYTES 8 % (9-44); MONOCYTES 15 % (0-8); NEUTROPHIL # MANUAL DIFF 0.9 TH/MM3 (1.8-7.7); POLYS (SEG NEUTROPHILS) 76 % (16-70)
[2017-07-27 08:36] LABS: OVALOCYTES 1+ (NORMAL)
[2017-07-27] MEDS: ALLOPURINOL 300 MG TAB PO SCH (09:20)
[2017-07-27] MEDS: MAGNESIUM OXIDE 400 MG TAB PO SCH ×2 (09:20→20:42)
[2017-07-27] MEDS: ONDANSETRON ODT 4 MG TAB PO SCH ×2 (09:20→20:42)
[2017-07-27] MEDS: PANTOPRAZOLE SOD 20 MG DELAYED RELEASE TAB PO SCH ×2 (09:20→20:42)
[2017-07-27] MEDS: CHOLECALCIFEROL (VIT D3) 1000 UNIT TAB PO SCH (09:20)
[2017-07-27] MEDS: METOLAZONE 5 MG TAB PO SCH (09:20)
[2017-07-27] MEDS: SPIRONOLACTONE 25 MG TAB PO SCH ×2 (09:21→19:14)
[2017-07-27] MEDS: ACETAMINOPHEN/HYDROcodone 325 MG/5 MG TAB PO PRN (09:21)
[2017-07-27] MEDS: BACLOFEN 20 MG TAB PO SCH ×4 (09:21→20:41)
[2017-07-27] MEDS: METOPROLOL TARTRATE 25 MG TAB PO SCH ×2 (09:21→20:42)
[2017-07-27] MEDS: POTASSIUM CHLORIDE 20 MEQ CONTROLLED RELEASE TAB PO SCH (09:22)
[2017-07-27] MEDS: FUROSEMIDE 40 MG/4 ML VIAL IVP SCH ×2 (09:22→19:14)
[2017-07-27] MEDS: SODIUM CHLORIDE 0.9% FLUSH 10 ML FLUSH IV FLUSH SCH ×2 (09:22→20:49)
[2017-07-27 12:00] VITALS: BP 122/58; PULSE 60; RESP 20; TEMP 98; O2SAT 94
--- NOTE | 2017-07-27 15:33 | HHI.PR ---
Subjective Remarks In bed . Says steroids helps. Less LE edema. Breating better Sattin well on room air at this time. No fever or chills. No n/v/d/c. has dry mouth and wants soft diet. Patient also tells me she is taking wellbutrin and would like to have it restarted Objective Vitals Vital Signs Date Time Temp Pulse Resp B/P (MAP) Pulse Ox O2 Delivery O2 Flow Rate FiO2 07/27/17 12:00 98.0 60 20 122/58 (79) 94 07/27/17 08:00 97.6 61 20 118/56 (76) 94 07/27/17 04:00 97.6 60 19 104/51 (68) 93 07/27/17 04:00 60 07/27/17 04:00 Room Air 07/27/17 00:00 97.4 59 20 93/53 (66) 92 07/27/17 00:00 60 07/27/17 00:00 Room Air 07/26/17 20:00 Room Air 07/26/17 20:00 60 07/26/17 20:00 98.1 95 18 134/62 (86) 95 07/26/17 16:00 97.2 59 20 121/56 (77) 97 I/O 07/26/17 07/26/17 07/26/17 07/27/17 07/27/17 07/27/17 06:59 14:59 22:59 06:59 14:59 22:59 Intake Total 480 ml 200 ml 100 ml Output Total 1000 ml 1200 ml 650 ml Balance -520 ml -1000 ml -550 ml Intake Oral 480 ml 200 ml 100 ml Output Urine Total 1000 ml 1200 ml 650 ml # Bowel Movements 0 Result Diagram: 07/27/17 0550 07/24/17 0641 Objective Remarks GENERAL: Chronically ill-appearing female SKIN: Extensive venous stasis changes bilateral lower extremities. CARDIOVASCULAR: Normal rate, regular rhythm. 2 out of 6 murmur over the right SB and apex. RESPIRATORY: Clear to auscultation. Breath sounds equal bilaterally. No wheezes , rales, or rhonchi. GASTROINTESTINAL: Abdomen is morbidly obese. Nontender. Some edema and probable ascites. MUSCULOSKELETAL: Bilateral lower extremities with 2+ edema. NEUROLOGICAL: Awake and alert. Cranial nerves II through XII grossly intact. Motor and sensory grossly within normal limits upper extremities. Weakness lower extremities 4 out of 5. Normal speech. A/P Problem List: (1) Anasarca ICD Code: R60.1 - Generalized edema Status: Acute (2) Severe tricuspid regurgitation ICD Code: I07.1 - Rheumatic tricuspid insufficiency Status: Acute (3) Permanent atrial fibrillation ICD Code: I48.2 - Chronic atrial fibrillation (4) Ascites ICD Code: R18.8 - Other ascites (5) History of aortic valve replacement ICD Code: Z95.2 - Presence of prosthetic heart valve Status: Chronic (6) CKD (chronic kidney disease) stage 3, GFR 30-59 ml/min ICD Code: N18.3 - Chronic kidney disease, stage 3 (moderate) (7) Follicular lymphoma grade I ICD Code: C82.00 - Follicular lymphoma grade I, unspecified site (8) Pancytopenia ICD Code: D61.818 - Other pancytopenia (9) H/O multiple sclerosis ICD Code: Z86.69 - Personal history of other diseases of the nervous system and sense organs Assessment and Plan (1) Anasarca ICD Code: R60.1 - Generalized edema Status: Acute Plan: Concern for valvulopathy/right heart failure as the cause. Patient has severe tricuspid regurgitation. Recent workup by GI and oncology. - Cardiology consulted. -Treated with IV Lasix 40 mg twice daily, continue metolazone and spironolactone. BNP pending Medicine patient is status post paracentesis 7 days ago and 5.7 L was taken out. Fluid was negative for malignant cells. -Restrict fluid (2) Severe tricuspid regurgitation ICD Code: I07.1 - Rheumatic tricuspid insufficiency Status: Acute Plan: Cardiology consulted as above. Consult cardio thoracic surgeon for evaluation. Records sent to [facility] for evaluation. (3) Permanent atrial fibrillation ICD Code: I48.2 - Chronic atrial fibrillation Plan: Rate controlled. Continue Coumadin. INR 2.1 on admission. Goal is around 2.5. Increase Coumadin to 6 mg daily. Monitor INR. Consult pharmacy (4) Ascites ICD Code: R18.8 - Other ascites Plan: It seems that she is reaccumulating fluid. Status post paracentesis 7 days ago. -continue to monitor. May need repeat paracentesis if she is not responding enough to IV diuretics. (5) History of aortic valve replacement ICD Code: Z95.2 - Presence of prosthetic heart valve Status: Chronic Plan: Anticoagulated as above (6) CKD (chronic kidney disease) stage 3, GFR 30-59 ml/min ICD Code: N18.3 - Chronic kidney disease, stage 3 (moderate) Plan: Monitor closely with diuretics (7) Follicular lymphoma grade I ICD Code: C82.00 - Follicular lymphoma grade I, unspecified site Plan: consult hem/onc (8) Pancytopenia ICD Code: D61.818 - Other pancytopenia Plan: placed in isolation Consult hem/onc for eval (9) H/O multiple sclerosis ICD Code: Z86.69 - Personal history of other diseases of the nervous system and sense organs Plan: poss exacerbation at this time consult neurology for further eval . CT spine and brain reviewed Started 07/25 to solumedrol 125 mg q 6 hr iv for three days per neuro recommendations consult pt/ot Also with depression /anxiety. Patient is taking wellbutrin restart . Consult psych tomorrow if need. Discussed Condition With pt, nurse Alisson Alvarado MD Jul 27, 2017 15:33
[2017-07-27 16:00] VITALS: BP 103/51; PULSE 63; RESP 20; TEMP 97.4; O2SAT 94
[2017-07-27] MEDS: WARFARIN SOD 6 MG TAB PO SCH (16:00)
[2017-07-27] MEDS ORDERED: NYSTATIN SUSP 500,000 U/5 ML CUP SWISH-SWAL ONE (19:00)
[2017-07-27 20:00] VITALS: BP 115/58; PULSE 60; RESP 18; TEMP 97.4; O2SAT 97
[2017-07-27] MEDS: MONTELUKAST SODIUM 10 MG TAB PO SCH (20:41)
[2017-07-27] MEDS: NYSTATIN SUSP 500,000 U/5 ML CUP SWISH-SWAL SCH (20:41)
[2017-07-27] MEDS: buPROPion HCL 75 MG TAB PO SCH (20:42)
[2017-07-28] VITALS (9 sets, daily range): BP systolic 99–129; BP diastolic 54–62; PULSE 59–91; RESP 16–18; TEMP 97.3–98; O2SAT 92–95
[2017-07-28] MEDS: methylPREDNISolone SOD SUCC 125 MG/2 ML VIAL IV PUSH SCH ×4 (00:37→21:37)
[2017-07-28] MEDS: ACETAMINOPHEN/HYDROcodone 325 MG/5 MG TAB PO PRN ×2 (05:42→21:53)
[2017-07-28] MEDS: ISOSORBIDE MONONITRATE 60 MG CR TAB (IMDUR) PO SCH (05:42)
[2017-07-28] MEDS: RESP: ALBUTEROL 2.5 MG/IPRATROPIUM 0.5 MG NEB (PRN) NEB ×3 (08:17→14:57)
[2017-07-28] MEDS: SODIUM CHLORIDE 0.9% FLUSH 10 ML FLUSH IV FLUSH SCH ×2 (08:54→21:38)
[2017-07-28] MEDS: METOLAZONE 5 MG TAB PO SCH (08:55)
[2017-07-28] MEDS: PANTOPRAZOLE SOD 20 MG DELAYED RELEASE TAB PO SCH ×2 (08:55→21:37)
[2017-07-28] MEDS: FUROSEMIDE 40 MG/4 ML VIAL IVP SCH (08:55)
[2017-07-28] MEDS: CHOLECALCIFEROL (VIT D3) 1000 UNIT TAB PO SCH (08:56)
[2017-07-28] MEDS: MAGNESIUM OXIDE 400 MG TAB PO SCH ×2 (08:56→21:37)
[2017-07-28] MEDS: ONDANSETRON ODT 4 MG TAB PO SCH ×2 (08:56→21:37)
[2017-07-28] MEDS: buPROPion HCL 75 MG TAB PO SCH ×2 (08:56→21:37)
[2017-07-28] MEDS: POTASSIUM CHLORIDE 20 MEQ CONTROLLED RELEASE TAB PO SCH (08:56)
[2017-07-28] MEDS: ALLOPURINOL 300 MG TAB PO SCH (08:56)
[2017-07-28] MEDS: SPIRONOLACTONE 25 MG TAB PO SCH ×2 (08:56→18:55)
[2017-07-28] MEDS: NYSTATIN SUSP 500,000 U/5 ML CUP SWISH-SWAL SCH ×4 (08:57→21:38)
[2017-07-28] MEDS: BACLOFEN 20 MG TAB PO SCH ×4 (08:57→21:37)
[2017-07-28] MEDS: METOPROLOL TARTRATE 25 MG TAB PO SCH ×2 (08:57→21:37)
--- NOTE | 2017-07-28 11:08 | PD.PN.STU ---
Subjective Remarks The patient is a 67 y/o female domiciled with her in [place]. She has a medical history that includes anxiety, CHF, A fib, Asthma, Tricuspid regurgitation, Hypertension, Multiple Sclerosis, and lymphoma. The patient reports that the nurse suggested she looked sad and the patient wanted to see psych "because it is always helpful to talk to someone". The patient states that she feels anxious when people are talking to her about her various diseases and when they talk to her about having surgery. She says her heart beat feels fast and she starts to become worried. She was recently discharged from [facility] but had to comeback the next day for SOB and edema. She feels she was discharged too early. She reports that her energy is improving, her appetite is normal, she is very groggy from her sleep, and she denies feeling guilty. She has been to her current for 38 years and she has one 47 y/o daughter from a previous marriage. 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 Her daughter was recently diagnosed with HIV and she had to be kicked out of the house 6 months ago. She has been on Wellbutrin in the past for 10 years but has not been on it since 2014. She denies any suicidal or homicidal ideations. She has never had and suicidal ideations or attempts, has never been velez acted, has never engaged in self harm, and does not see a psychiatrist or therapist outpatient. She denies ever using tobacco, drinking alcohol, or using recreational drugs. She has no relevant family psychiatric history. Objective Vitals Vital Signs Date Time Temp Pulse Resp B/P (MAP) Pulse Ox O2 Delivery O2 Flow Rate FiO2 07/28/17 08:00 97.3 60 18 107/59 (75) 94 07/28/17 04:00 Room Air 07/28/17 04:00 64 07/28/17 03:47 97.3 62 16 121/56 (77) 94 07/28/17 00:34 97.4 60 18 113/54 (73) 95 07/28/17 00:00 Room Air 07/28/17 00:00 60 07/27/17 20:00 Room Air 07/27/17 20:00 97.4 60 18 115/58 (77) 97 07/27/17 20:00 60 07/27/17 16:00 97.4 63 20 103/51 (68) 94 07/27/17 12:00 98.0 60 20 122/58 (79) 94 I/O 07/27/17 07/27/17 07/27/17 07/28/17 07/28/17 07/28/17 07:00 15:00 23:00 07:00 15:00 23:00 Intake Total 100 ml 200 ml Output Total 650 ml 1250 ml Balance -550 ml 200 ml -1250 ml Intake Oral 100 ml 200 ml Output Urine Total 650 ml 1250 ml # Voids 4 4 # Bowel Movements 0 2 Result Diagram: 07/27/17 0550 07/24/17 0641 Objective Remarks Mental Status Exam Appearance: Appropriately groomed and lying in hospital bed Behavior: Cooperative with the interview, very willing to talk Speech: normal tone and rhythm Consciousness: Alert and oriented to person, place, and time Thought Process: Very circumferential Though Content: focused on her medical conditions Mood: "comfortable" Affect: congruent with mood Impulse Control: intact Insight: good Judgment: good Hallucinations: denies auditory or visual hallucinations Ideations: Patient denies suicidal or homicidal ideations Medications and IVs Current Medications Medications (Trade) Dose Ordered Sig/Love Route PRN Reason Start Time Stop Time Status Last Admin Dose Admin Sodium Chloride (NS Flush) 2 ml BID IV FLUSH 07/23/17 21:00 07/28/17 08:54 Sodium Chloride (NS Flush) 2 ml UNSCH PRN IV FLUSH FLUSH AFTER USING IV ACCESS 07/23/17 20:30 Furosemide (Lasix Inj) 40 mg BID@ IVP 07/24/17 09:00 07/28/17 08:55 Allopurinol (Zyloprim) 300 mg DAILY PO 07/24/17 09:00 07/28/17 08:56 Baclofen (Lioresal) 20 mg QID PO 07/23/17 21:00 07/28/17 08:57 Cholecalciferol (Vitamin D3) 2,000 units DAILY PO 07/24/17 09:00 07/28/17 08:56 Acetaminophen/ Hydrocodone Bitart ([place] 5-325 Mg) 1 tab Q6H PRN PO PAIN 07/23/17 20:30 07/28/17 05:42 Pravastatin Sodium (Pravachol) 10 mg 2XWEEK PO 07/24/17 09:00 Magnesium Oxide (Mag-Ox) 400 mg BID PO 07/23/17 21:00 07/28/17 08:56 Metolazone (Zaroxolyn) 5 mg DAILY PO 07/24/17 09:00 07/28/17 08:55 Metoprolol Tartrate (Lopressor) 6.25 mg Q12HR PO 07/23/17 21:00 07/28/17 08:57 Montelukast Sodium (Singulair) 10 mg HS PO 07/23/17 21:00 07/27/17 20:41 Potassium Chloride (KCl) 20 meq DAILY PO 07/24/17 09:00 07/28/17 08:56 Spironolactone (Aldactone) 25 mg BID@ PO 07/24/17 09:00 07/28/17 08:56 Pantoprazole Sodium (Protonix) 20 mg BID PO 07/23/17 23:00 07/28/17 08:55 Ondansetron HCl (Zofran Odt) 4 mg BID PO 07/23/17 21:00 07/28/17 08:56 Warfarin Sodium (Coumadin) 6 mg DAILY@1600 PO 07/24/17 16:00 07/27/17 16:00 Albuterol/ Ipratropium (Duoneb Neb) 1 ampule Q4HR NEB PRN NEB sob 07/24/17 01:30 07/28/17 08:17 Isosorbide Mononitrate (Imdur) 60 mg DAILY@0700 PO 07/26/17 07:00 07/28/17 05:42 Tizanidine HCl (Zanaflex) 4 mg BID PO 07/25/17 21:00 07/28/17 08:55 Methylprednisolone Sodium Succinate (SoluMEDROL INJ) 125 mg Q6H IV PUSH 07/25/17 20:00 07/28/17 08:54 Bisacodyl (Dulcolax Supp) 10 mg DAILY PRN RECTAL CONSTIPATION 07/27/17 01:30 Magnesium Hydroxide (Milk Of Magnesia Liq) 30 ml Q6H PRN PO CONSTIPATION 07/27/17 01:30 07/27/17 01:34 Bupropion HCl (Wellbutrin) 75 mg Q12HR PO 07/27/17 21:00 07/28/17 08:56 Nystatin (Mycostatin Liq) 5 ml QID SWISH-SWAL 07/27/17 21:00 07/28/17 08:57 A/P Assessment and Plan The patient is a 67 y/o female with a PMH of anxiety, CHF, A fib, Asthma, Tricuspid regurgitation, Hypertension, Multiple Sclerosis, and lymphoma. The patient wanted to psych "because it is always helpful to talk to someone". Her anxiety is very obviously secondary to her chronic medical conditions. She is also stressed about her daughters situation. Her anxiety is centered around specific things going on in her life. She will benefit from intermediate card tender SSRI therapy for generalized anxiety but she has a hx of getting a rash on her palms from Zoloft and possibly another SSRI. She says Wellbutrin works best for her. 1. Adjustment Disorder with Anxiety Wellbutrin 75mg BID Will begin Zoloft 25mg PO daily Start 0.5mg Clonidine BID as needed for breakthrough anxiety Sonny Mayes M3 Jul 28, 2017 11:08
--- NOTE | 2017-07-28 11:40 | HHI.PR ---
Subjective Remarks Says she feels very anxious and wants to see a psych doctor. Says she was wheezing in he morning. Received nebs and feels better. No n/v/d/c. No fever or chills. Objective Vitals Vital Signs Date Time Temp Pulse Resp B/P (MAP) Pulse Ox O2 Delivery O2 Flow Rate FiO2 07/28/17 08:00 97.3 60 18 107/59 (75) 94 07/28/17 04:00 Room Air 07/28/17 04:00 64 07/28/17 03:47 97.3 62 16 121/56 (77) 94 07/28/17 00:34 97.4 60 18 113/54 (73) 95 07/28/17 00:00 Room Air 07/28/17 00:00 60 07/27/17 20:00 Room Air 07/27/17 20:00 97.4 60 18 115/58 (77) 97 07/27/17 20:00 60 07/27/17 16:00 97.4 63 20 103/51 (68) 94 07/27/17 12:00 98.0 60 20 122/58 (79) 94 I/O 07/27/17 07/27/17 07/27/17 07/28/17 07/28/17 07/28/17 07:00 15:00 23:00 07:00 15:00 23:00 Intake Total 100 ml 200 ml Output Total 650 ml 1250 ml Balance -550 ml 200 ml -1250 ml Intake Oral 100 ml 200 ml Output Urine Total 650 ml 1250 ml # Voids 4 4 # Bowel Movements 0 2 Result Diagram: 07/27/17 0550 07/24/17 0641 Imaging Last Impressions Thoracic Spine CT 07/24/17 0000 Signed Impressions: Service Date/Time: July 19:38 - CONCLUSION: Degenerative changes throughout the thoracic spine. Multilevel disc bulges and foraminal narrowing as described above. No significant spinal stenosis. No acute compression fracture or subluxation. 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 Old lacunar infarct involving the left cerebellar hemisphere. Moderate periventricular and subcortical white matter small vessel ischemic changes bilaterally. No acute infarct, acute hemorrhage, mass effect or extra-axial fluid collections. Jaycob Camara MD Cervical Spine CT 07/24/17 0000 Signed Impressions: Service Date/Time: July 19:34 - CONCLUSION: 1. Mild spinal stenosis and moderate to severe bilateral foraminal narrowing at C5-6. 2. Mild left neuroforaminal narrowing at C3-4 and mild bilateral foraminal narrowing at C4-5. 3. No acute fracture or prevertebral soft tissue swelling. 1. Jaycob Camara MD Chest X-Ray 07/23/17 1716 Signed Impressions: Service Date/Time: Sunday, July 23, 2017 17:43 - CONCLUSION: Stable chest with no acute disease. Chapito Desouza MD Objective Remarks GENERAL: Chronically ill-appearing female SKIN: Extensive venous stasis changes bilateral lower extremities. CARDIOVASCULAR: Normal rate, regular rhythm. 2 out of 6 murmur over the right SB and apex. RESPIRATORY: Clear to auscultation. Breath sounds equal bilaterally. No wheezes , rales, or rhonchi. GASTROINTESTINAL: Abdomen is morbidly obese. Nontender. Some edema and probable ascites. MUSCULOSKELETAL: Bilateral lower extremities with 2+ edema. NEUROLOGICAL: Awake and alert. Cranial nerves II through XII grossly intact. Motor and sensory grossly within normal limits upper extremities. Weakness lower extremities 4 out of 5. Normal speech. A/P Problem List: (1) Anasarca ICD Code: R60.1 - Generalized edema Status: Acute (2) Severe tricuspid regurgitation ICD Code: I07.1 - Rheumatic tricuspid insufficiency Status: Acute (3) Permanent atrial fibrillation ICD Code: I48.2 - Chronic atrial fibrillation (4) Ascites ICD Code: R18.8 - Other ascites (5) History of aortic valve replacement ICD Code: Z95.2 - Presence of prosthetic heart valve Status: Chronic (6) CKD (chronic kidney disease) stage 3, GFR 30-59 ml/min ICD Code: N18.3 - Chronic kidney disease, stage 3 (moderate) (7) Follicular lymphoma grade I ICD Code: C82.00 - Follicular lymphoma grade I, unspecified site (8) Pancytopenia ICD Code: D61.818 - Other pancytopenia (9) H/O multiple sclerosis ICD Code: Z86.69 - Personal history of other diseases of the nervous system and sense organs Assessment and Plan (1) Anasarca ICD Code: R60.1 - Generalized edema Status: Acute Plan: Concern for valvulopathy/right heart failure as the cause. Patient has severe tricuspid regurgitation. Recent workup by GI and oncology. - Cardiology consulted. -Treated with IV Lasix 40 mg twice daily, continue metolazone and spironolactone. BNP normal Medicine patient is status post paracentesis as OP and 5.7 L was taken out. Fluid was negative for malignant cells. -Restrict fluid (2) Severe tricuspid regurgitation ICD Code: I07.1 - Rheumatic tricuspid insufficiency Status: Acute Plan: Cardiology consulted as above. Consult cardio thoracic surgeon for evaluation. Records sent to [facility] for evaluation. (3) Permanent atrial fibrillation ICD Code: I48.2 - Chronic atrial fibrillation Plan: Rate controlled. Continue Coumadin. INR 2.1 on admission. Goal is around 2.5. Increase Coumadin to 6 mg daily. Monitor INR. Consult pharmacy (4) Ascites ICD Code: R18.8 - Other ascites Plan: It seems that she is reaccumulating fluid. Status post paracentesis 7 days ago. -continue to monitor. May need repeat paracentesis if she is not responding enough to IV diuretics. (5) History of aortic valve replacement ICD Code: Z95.2 - Presence of prosthetic heart valve Status: Chronic Plan: Anticoagulated as above (6) CKD (chronic kidney disease) stage 3, GFR 30-59 ml/min ICD Code: N18.3 - Chronic kidney disease, stage 3 (moderate) Plan: Monitor closely with diuretics (7) Follicular lymphoma grade I ICD Code: C82.00 - Follicular lymphoma grade I, unspecified site Plan: consult hem/onc (8) Pancytopenia ICD Code: D61.818 - Other pancytopenia Plan: placed in isolation Consult hem/onc for eval Start neupogen (9) H/O multiple sclerosis ICD Code: Z86.69 - Personal history of other diseases of the nervous system and sense organs Plan: poss exacerbation at this time consult neurology for further eval . CT spine and brain reviewed Started 07/25 to solumedrol 125 mg q 6 hr iv for three days per neuro recommendations consult pt/ot Also with depression /anxiety. Patient is taking Wellbutrin restart . Consult psych Discussed Condition With pt, nurse Alisson Alvarado MD Jul 28, 2017 11:40
--- NOTE | 2017-07-28 11:57 | PD.ONC.PN ---
Subjective Subjective Remarks `Afebrile overnight. Patient resting in room in nad. nervous about potentially being transferred to another hospital. +cough and shortness of breath with exertion. states the breathing treatments she receives help. Objective Data Date Time Temp Pulse Resp B/P (MAP) Pulse Ox O2 Delivery O2 Flow Rate FiO2 07/28/17 08:00 97.3 60 18 107/59 (75) 94 07/28/17 04:00 Room Air 07/28/17 04:00 64 07/28/17 03:47 97.3 62 16 121/56 (77) 94 07/28/17 00:34 97.4 60 18 113/54 (73) 95 07/28/17 00:00 Room Air 07/28/17 00:00 60 07/27/17 20:00 Room Air 07/27/17 20:00 97.4 60 18 115/58 (77) 97 07/27/17 20:00 60 07/27/17 16:00 97.4 63 20 103/51 (68) 94 07/27/17 12:00 98.0 60 20 122/58 (79) 94 07/28/17 07/28/17 07/28/17 07:00 15:00 23:00 Output Total 1250 ml Balance -1250 ml Result Diagram: 07/27/17 0550 07/24/17 0641 Administered Medications Medications (Trade) Dose Ordered Sig/Love Route PRN Reason Start Time Stop Time Status Last Admin Dose Admin Sodium Chloride (NS Flush) 2 ml BID IV FLUSH 07/23/17 21:00 07/28/17 08:54 Furosemide (Lasix Inj) 40 mg BID@ IVP 07/24/17 09:00 07/28/17 08:55 Allopurinol (Zyloprim) 300 mg DAILY PO 07/24/17 09:00 07/28/17 08:56 Baclofen (Lioresal) 20 mg QID PO 07/23/17 21:00 07/28/17 08:57 Cholecalciferol (Vitamin D3) 2,000 units DAILY PO 07/24/17 09:00 07/28/17 08:56 Acetaminophen/ Hydrocodone Bitart ([place] 5-325 Mg) 1 tab Q6H PRN PO PAIN 07/23/17 20:30 07/28/17 05:42 Magnesium Oxide (Mag-Ox) 400 mg BID PO 07/23/17 21:00 07/28/17 08:56 Metolazone (Zaroxolyn) 5 mg DAILY PO 07/24/17 09:00 07/28/17 08:55 Metoprolol Tartrate (Lopressor) 6.25 mg Q12HR PO 07/23/17 21:00 07/28/17 08:57 Montelukast Sodium (Singulair) 10 mg HS PO 07/23/17 21:00 07/27/17 20:41 Potassium Chloride (KCl) 20 meq DAILY PO 07/24/17 09:00 07/28/17 08:56 Spironolactone (Aldactone) 25 mg BID@ PO 07/24/17 09:00 07/28/17 08:56 Pantoprazole Sodium (Protonix) 20 mg BID PO 07/23/17 23:00 07/28/17 08:55 Ondansetron HCl (Zofran Odt) 4 mg BID PO 07/23/17 21:00 07/28/17 08:56 Warfarin Sodium (Coumadin) 6 mg DAILY@1600 PO 07/24/17 16:00 07/27/17 16:00 Albuterol/ Ipratropium (Duoneb Neb) 1 ampule Q4HR NEB PRN NEB sob 07/24/17 01:30 07/28/17 11:20 Isosorbide Mononitrate (Imdur) 60 mg DAILY@0700 PO 07/26/17 07:00 07/28/17 05:42 Tizanidine HCl (Zanaflex) 4 mg BID PO 07/25/17 21:00 07/28/17 08:55 Methylprednisolone Sodium Succinate (SoluMEDROL INJ) 125 mg Q6H IV PUSH 07/25/17 20:00 07/28/17 08:54 Magnesium Hydroxide (Milk Of Magnesia Liq) 30 ml Q6H PRN PO CONSTIPATION 07/27/17 01:30 07/27/17 01:34 Bupropion HCl (Wellbutrin) 75 mg Q12HR PO 07/27/17 21:00 07/28/17 08:56 Nystatin (Mycostatin Liq) 5 ml QID SWISH-SWAL 07/27/17 21:00 07/28/17 08:57 Objective Remarks GENERAL: Thin female, lying supine in bed resting. SKIN: Warm and dry. HEAD: Normocephalic. EYES: No injection or drainage. NECK: Supple, trachea midline. CARDIOVASCULAR: Regular rate and rhythm RESPIRATORY: anterior cheung clear. GASTROINTESTINAL: Abdomen soft, non-tender, nondistended. EXTREMITIES: No cyanosis. NEUROLOGICAL: awake and alert, normal speech. moving all extremities. Assessment/Plan Problem List: (1) Pancytopenia ICD Codes: D61.818 - Other pancytopenia Plan: --started on Neupogen on 07/28 --due to underlying liver disease/cirrhosis and splenomegaly. --hemoglobin and platelet count are relatively stable. (2) Follicular lymphoma grade I ICD Codes: C82.00 - Follicular lymphoma grade I, unspecified site Plan: --Follicular lymphoma grade 1. --completed 4 cycles Rituxan and bendamustine in March 2017-->PET scan showed a good response and resolution of the hypermetabolic uptake in the abdominal lymph node. ------started on maintenance Rituxan. last dose was early June. no evidence of recurrent disease. (3) Congestive heart failure (CHF) ICD Codes: I50.9 - Heart failure, unspecified Status: Acute Plan: -- has a history of aortic valve replacement. --was recently found to have severe tricuspid valve regurgitation. -- is being evaluated by Cardiothoracic Surgery for possible surgical repair. Assessment 67y/o female with lymphoma and pancytopenia. h/o Follicular lymphoma grade 1. Diabetes mellitus. Transient ischemic attack. Chronic atrial fibrillation. Valvular disease. Hypertension. Gout. Asthma. Nephrolithiasis. Multiple sclerosis. Questionable cirrhosis with splenomegaly.Pancytopenia. HPI (brought forward for continuity of care): history of grade 1 follicular lymphoma, completed chemotherapy in March 2017, readmitted to hospital with increased shortness of breath and edema. was just discharged from the hospital earlier this week for symptomatic bradycardia, dizziness, hypertension. During the hospital stay, she was also found to have anasarca. She had significant ascites and had GI workup including paracentesis, which did not show any malignancy. She said when she went home, she felt well for a day.By Friday afternoon, she had increased lower extremity weakness. She also has a shuffling gait. She said that she swelled up, and the diuretic does not seem to work. She came back to the hospital. She has been having chest pain. She has PND and orthopnea. Plan 1. monitor CBC 2. start Neupogen today 3. continue supportive care Attending Statement The exam, history, and the medical decision-making described in the above note were completed with the assistance of the mid-level provider. I reviewed and agree with the findings presented. I attest that I had a [id number] encounter with the patient on the same day, and personally performed and documented my assessment and findings in the medical record. Feeling better since start steroid. Still has pancytopenia. Neutrophil count trended lower over the weekend, will give her a dose of neupogen. Problem Qualifiers (1) Congestive heart failure (CHF): Qualified Codes: I50.9 - Heart failure, unspecified Yokasta Andrew Jul 28, 2017 11:57 Lane Mayberry MD Jul 28, 2017 15:27
--- NOTE | 2017-07-28 12:31 | PD.PSY.CON ---
Provisional Diagnosis Admission Date Jul 23, 2017 at 20:10 [place] I. Adjustment disorder with anxiety, ROSITA [place] II. Deferred [place] III. CHF, A fib, Asthma, Tricuspid regurgitation, Hypertension, Multiple Sclerosis, and lymphoma [place] IV. Daughter was recently diagnosed with HIV [place] V. 55 History of Present Illness Service Psychiatry Consult Requested By Medical team Reason for Consult Anxiety Primary Care Physician Non-Staff HPI Note written by medical student Sonny Mayes, but edited and revised by me The patient is a 67 y/o female, employed part-time, on [employer], domiciled with her in [place]. She has a medical history that includes anxiety, no psychiatric hospitalizations, no previous suicidal attempts, CHF, A fib, Asthma , Tricuspid regurgitation, Hypertension, Multiple Sclerosis, and lymphoma. The patient reports that the nurse suggested she looked sad and the patient wanted to see psych "because it is always helpful to talk to someone". The patient states that she feels anxious when people are talking to her about her various diseases and when they talk to her about having surgery. She says her heart beat feels fast and she starts to become worried. She was recently discharged from [facility] but had to comeback the next day for SOB and edema. She feels she was discharged too early. She reports that her energy is improving, her appetite is normal, she is very groggy from her sleep, and she denies feeling guilty. She has been to her current for 38 years and she has one 47 y/o daughter from a previous marriage. 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 Her daughter was recently diagnosed with HIV and she had to be kicked out of the house 6 months ago. She has been on Wellbutrin in the past for 10 years but has not been on it since 2015. She denies any suicidal or homicidal ideations. She has never had and suicidal ideations or attempts, has never been velez acted, has never engaged in self harm, and does not see a psychiatrist or therapist outpatient. During the evaluation no gross cognitive impairment is observed. Patient denies the use of alcohol and illegal drugs. Review of Systems Constitutional: DENIES: Diaphoretic episodes, Fatigue, Fever, Weight gain, Weight loss, Chills, Dizziness, Change in appetite, Night Sweats Endocrine: DENIES: Abnorml menstrual pattern, Heat/cold intolerance, Polydipsia , Polyuria, Polyphagia Eyes: DENIES: Blurred vision, Diplopia, Eye inflammation, Eye pain, Vision loss , Photosensitivity, Double Vision Ears, nose, mouth, throat: DENIES: Tinnitus, Hearing loss, Vertigo, Nasal discharge, Oral lesions, Throat pain, Hoarseness, Ear Pain, Running Nose, Epistaxis, Sinus Pain, Toothache, Odynophagia Respiratory: COMPLAINS OF: Apneas, Cough Cardiovascular: DENIES: Chest pain, Palpitations, Syncope, Dyspnea on Exertion , PND, Lower Extremity Edema, Orthopnea, Claudication Genitourinary: DENIES: Abnormal vaginal bleeding, Dysmenorrhea, Dyspareunia, Sexual dysfunction, Urinary frequency, Urinary incontinence, Urgency, Hematuria , Dysuria, Nocturia, Vaginal discharge Musculoskeletal: DENIES: Joint pain, Muscle aches, Stiffness, Joint Swelling, Back pain, Neck pain Integumentary: DENIES: Abnormal pigmentation, Pruritus, Rash, Nail changes, Breast masses, Breast skin changes, Nipple discharge Hematologic/lymphatic: DENIES: Bruising, Lymphadenopathy Immunologic/allergic: DENIES: Eczema, Urticaria Psychiatric: COMPLAINS OF: Anxiety, DENIES: Confusion, Mood changes, Depression , Hallucinations, Agitation, Suicidal Ideation, Homicidal Ideation, Delusions Past Family Social History Coded Allergies: ampicillin (Verified Allergy, Severe, Hives, 07/23/17) aspirin (Verified Allergy, Severe, Hives, 07/23/17) cashew nut (Verified Allergy, Severe, Anaphylaxis, 07/23/17) ciprofloxacin (Verified Allergy, Severe, Hives, 07/23/17) doxycycline (Verified Allergy, Severe, Anaphylaxis, 07/23/17) erythromycin base (Verified Allergy, Severe, Anaphylaxis, 07/23/17) iodine (Verified Allergy, Severe, Shortness of Breath, 07/23/17) minocycline (Verified Allergy, Severe, Anaphylaxis, 07/23/17) morphine (Verified Allergy, Severe, Anaphylaxis, 07/23/17) penicillin G (Verified Allergy, Severe, Hives, 07/23/17) potassium iodide (Verified Allergy, Severe, Shortness of Breath, 07/23/17) povidone-iodine (Verified Allergy, Severe, Shortness of Breath, 07/23/17) sodium iodide (Verified Allergy, Severe, Shortness of Breath, 07/23/17) sodium iodide (Verified Allergy, Severe, Shortness of Breath, 07/23/17) tigecycline (Verified Allergy, Severe, Anaphylaxis, 07/23/17) bee venom protein (honey bee) (Verified Allergy, Unknown, Shortness of Breath, 07/23/17) cephalexin (Verified Allergy, Unknown, Hives, 07/23/17) codeine (Verified Allergy, Unknown, Hives, 07/23/17) diclofenac (Verified Allergy, Unknown, Hives, 07/23/17) etodolac (Verified Allergy, Unknown, Hives, 07/23/17) flurbiprofen (Verified Allergy, Unknown, Hives, 07/23/17) gentamicin (Verified Allergy, Unknown, Hives, 07/23/17) indomethacin (Verified Allergy, Unknown, Hives, 07/23/17) ketoprofen (Verified Allergy, Unknown, Hives, 07/23/17) ketorolac (Verified Allergy, Unknown, Hives, 07/23/17) metronidazole (Verified Allergy, Unknown, Hives, 07/23/17) naproxen (Verified Allergy, Unknown, Hives, 07/23/17) oxaprozin (Verified Allergy, Unknown, Hives, 07/23/17) oxycodone (Verified Allergy, Unknown, Hives, 07/23/17) propoxyphene (Verified Allergy, Unknown, Hives, 07/23/17) Uncoded Allergies: KEFLIN (Allergy, Severe, Hives, 12/16/16) Active Scripts Hydrocodone-Acetaminophen ([place]) 5 Mg-325 Mg Tab, 1 TAB PO Q6H Y for PAIN, #15 TAB 0 Refills Prov:Alisson Alvarado MD 07/22/17 Spironolactone (Aldactone) 25 Mg Tab, 25 MG PO BID@09,18 for Blood Pressure Management, #30 TAB Prov:Alisson Alvarado MD 07/22/17 Metoprolol Tartrate (Metoprolol Tartrate) 25 Mg Tab, 6.25 MG PO Q12HR for Blood Pressure Management, #60 TAB Prov:Alisson Alvarado MD 07/22/17 Isosorbide Mononitrate ER (Isosorbide Mononitrate ER) 30 Mg Gema, 30 MG PO DAILY@0700 for Blood Pressure Management, #30 TAB Prov:Alisson Alvarado MD 07/22/17 Warfarin (Coumadin) 5 Mg Tab, 5 MG PO DAILY@1600 for Blood Clot Prevention, #30 TAB Prov:Alisson Alvarado MD 07/22/17 Reported Medications Metolazone (Metolazone) 5 Mg Tab, 5 MG PO DAILY, #30 TAB 0 Refills 07/23/17 Bumetanide (Bumetanide) 2 Mg Tab, 3 MG PO DAILY, TAB 0 Refills 07/23/17 Ondansetron HCl (Ondansetron HCl) 4 Mg Tab, 4 MG PO BID 01/31/17 Allopurinol (Allopurinol) 300 Mg Tab, 300 MG PO DAILY for Gout, #30 TAB 0 Refills 01/06/17 Magnesium Oxide (Magnesium) 400 Mg Tablet, 1 TAB PO BID 12/16/16 Cholecalciferol (Vitamin D3) 2,000 Unit Cap, 2000 UNITS PO DAILY for Nutritional Supplement, #1 BOTTLE 0 Refills 12/16/16 Tizanidine (Tizanidine) 4 Mg Tab, 4 MG PO HS for Muscle Spasm, TAB 0 Refills 12/16/16 Montelukast (Singulair) 10 Mg Tab, 10 MG PO HS, #30 TAB 0 Refills 12/16/16 Omeprazole (Omeprazole) 20 Mg Tab, 20 MG PO BID, #30 TAB 0 Refills 12/16/16 Lovastatin (Lovastatin) 10 Mg Tab, 10 MG PO 2XWEEK for Cholesterol Management, # 30 TAB 0 Refills 12/16/16 Potassium Chloride ER (Potassium Chloride ER) 20 Meq Tab, 20 MEQ PO DAILY for Electrolyte Replacement, #30 TAB 0 Refills 12/16/16 Baclofen (Baclofen) 20 Mg Tab, 20 MG PO QID for Muscle Spasm, TAB 0 Refills 12/16/16 Discontinued Reported Medications Warfarin (Warfarin) 6 Mg Tab, 12 MG PO Q4D for Blood Clot Prevention, #30 TAB 0 Refills 02/12/17 Metoprolol Tartrate (Metoprolol Tartrate) 25 Mg Tab, 12.5 MG PO BID, #60 TAB 0 Refills 12/16/16 Warfarin (Warfarin) 6 Mg Tab, 6 MG PO DAILY for Blood Clot Prevention, #30 TAB 0 Refills 12/16/16 Discontinued Scripts Isosorbide Mononitrate ER (Isosorbide Mononitrate ER) 60 Mg Tab, 60 MG PO DAILY@ 07 for chest pain, #30 TAB Prov:Walker Rosado MD 02/18/17 Current Medications Medications (Trade) Dose Ordered Sig/Love Route Start Time Stop Time Status Last Admin (NS Flush) 2 ml BID IV FLUSH 07/23/17 21:00 07/28/17 08:54 (NS Flush) 2 ml UNSCH PRN IV FLUSH 07/23/17 20:30 (Lasix Inj) 40 mg BID@ IVP 07/24/17 09:00 07/28/17 08:55 (Zyloprim) 300 mg DAILY PO 07/24/17 09:00 07/28/17 08:56 (Lioresal) 20 mg QID PO 07/23/17 21:00 07/28/17 08:57 (Vitamin D3) 2,000 units DAILY PO 07/24/17 09:00 07/28/17 08:56 ([place] 5-325 Mg) 1 tab Q6H PRN PO 07/23/17 20:30 07/28/17 05:42 (Pravachol) 10 mg 2XWEEK PO 07/24/17 09:00 (Mag-Ox) 400 mg BID PO 07/23/17 21:00 07/28/17 08:56 (Zaroxolyn) 5 mg DAILY PO 07/24/17 09:00 07/28/17 08:55 (Lopressor) 6.25 mg Q12HR PO 07/23/17 21:00 07/28/17 08:57 (Singulair) 10 mg HS PO 07/23/17 21:00 07/27/17 20:41 (KCl) 20 meq DAILY PO 07/24/17 09:00 07/28/17 08:56 (Aldactone) 25 mg BID@ PO 07/24/17 09:00 07/28/17 08:56 (Protonix) 20 mg BID PO 07/23/17 23:00 07/28/17 08:55 (Zofran Odt) 4 mg BID PO 07/23/17 21:00 07/28/17 08:56 (Coumadin) 6 mg DAILY@1600 PO 07/24/17 16:00 07/27/17 16:00 (Duoneb Neb) 1 ampule Q4HR NEB PRN NEB 07/24/17 01:30 07/28/17 11:20 (Imdur) 60 mg DAILY@0700 PO 07/26/17 07:00 07/28/17 05:42 (Zanaflex) 4 mg BID PO 07/25/17 21:00 07/28/17 08:55 (SoluMEDROL INJ) 125 mg Q6H IV PUSH 07/25/17 20:00 07/28/17 08:54 (Dulcolax Supp) 10 mg DAILY PRN RECTAL 07/27/17 01:30 (Milk Of Magnesia Liq) 30 ml Q6H PRN PO 07/27/17 01:30 07/27/17 01:34 (Wellbutrin) 75 mg Q12HR PO 07/27/17 21:00 07/28/17 08:56 (Mycostatin Liq) 5 ml QID SWISH-SWAL 07/27/17 21:00 07/28/17 08:57 (Neupogen Inj) 300 mcg DAILY@14 SQ 07/28/17 14:00 UNV Family Psych History No family psychiatric history Social History The patient lives at home with her , she is part-time employed, supported by [employer], she has a daughter, Patient's Strengths (min. 2) Family support, employed part-time, no history of psychiatric hospitalizations Physical Exam No EPS, no withdrawal symptoms, no psychomotor agitation retardation Vital Signs Vital Signs Date Time Temp Pulse Resp B/P (MAP) Pulse Ox O2 Delivery O2 Flow Rate FiO2 07/28/17 08:00 97.3 60 18 107/59 (75) 94 07/28/17 04:00 Room Air 07/27/17 08:00 21 I/O 07/28/17 07/28/17 07/28/17 07:59 15:59 23:59 Output Total 1250 ml Balance -1250 ml Mental Status Examination Appearance: Appropriate Consciousness: Alert Orientation: x4 Motor Activity: Normal gait Speech: Unremarkable Language: Adequate Fund of Knowledge: Adequate Attention and Concentration: Adequate Memory: Unremarkable Mood: Appropriate Affect: Appropriate Thought Process & Associations: Logical, Goal directed Thought Content: Appropriate Hallucination Type: None Delusion Type: None Suicidal Ideation: No Suicidal Plan: No Suicidal Intention: No Homicidal Ideation: No Homicidal Plan: No Homicidal Intention: No Insight: Adequate Judgment: Adequate Assessment & Plan Problem List: (1) Adjustment disorder with anxiety ICD Codes: F43.22 - Adjustment disorder with anxiety Assessment & Plan: The patient is a 67 y/o female with a PPPHx of anxiety, no previous psychotic hospitalizations, no previous suicidal attempts, she is on Wellbutrin 75 mg twice a day, medical history of CHF, A fib, Asthma, Tricuspid regurgitation, Hypertension, Multiple Sclerosis, and lymphoma. The patient wanted to psych "because it is always helpful to talk to someone". Her anxiety is very obviously secondary to her chronic medical conditions. She is also stressed about her daughters situation and current medical issues. Her anxiety is centered around specific stressors going on in her life. Even though Wellbutrin is not the best option to treat chronic anxiety, the patient relates that she has been receiving benefit of this medication, so we agreed to continue Wellbutrin 75 twice a day, but we will start the patient in a low dose of acting benzodiazepine to help her with her anxiety adjustment in the hospital. We will start clonazepam 0.5 mg twice a day. Patient does not meet criteria for involuntary psychiatric admission at this moment. Will supportive psychotherapy, psychoeducation provided. We will follow-up. (2) Generalized anxiety disorder ICD Codes: F41.1 - Generalized anxiety disorder Assessment & Plan Estimated LOS: Tr Beckham MD Jul 28, 2017 12:31
[2017-07-28] MEDS: FILGRASTIM 300 MCG/ML VIAL SQ SCH (13:56)
[2017-07-28 14:18] LABS: HEMATOCRIT 28.8 % (35.0-46.0); HEMOGLOBIN 9.8 GM/DL (11.6-15.3); MEAN CELL VOLUME 81.7 FL (80.0-100.0); MEAN CORPUSCULAR HEMOGLOBIN 27.8 PG (27.0-34.0); MEAN PLATELET VOLUME 8.6 FL (7.0-11.0); PLATELET COUNT 94 TH/MM3 (150-450); RED BLOOD COUNT 3.53 MIL/MM3 (4.00-5.30); WHITE BLOOD COUNT 1.9 TH/MM3 (4.0-11.0)
--- NOTE | 2017-07-28 14:30 | PD.CARD.PN ---
Subjective Subjective Remarks Increased dyspnea, wheezing, mostly nonproductive cough today. No PND, CP, palpitations, dizziness. Objective Medications Item Value Date Time Isosorbide 60 mg 07/26/17 0700 Mononitrate DAILY@0700/PO 07/28/17 0542 (Imdur) Warfarin Sodium 6 mg 07/24/17 1600 (Coumadin) DAILY@1600/PO 07/27/17 1600 Furosemide 40 mg 07/24/17 0900 (Lasix Inj) BID@/IVP 07/28/17 0855 Pravastatin Sodium 10 mg 07/24/17 0900 (Pravachol) 2XWEEK/PO Metolazone 5 mg 07/24/17 0900 (Zaroxolyn) DAILY/PO 07/28/17 0855 Potassium Chloride 20 meq 07/24/17 0900 (KCl) DAILY/PO 07/28/17 0856 Spironolactone 25 mg 07/24/17 0900 (Aldactone) BID@/PO 07/28/17 0856 Metoprolol 6.25 mg 07/23/17 2100 Tartrate Q12HR/PO 07/28/17 0857 (Lopressor) Current Medications Medications (Trade) Dose Ordered Sig/Love Route Start Time Stop Time Status Last Admin (NS Flush) 2 ml BID IV FLUSH 07/23/17 21:00 07/28/17 08:54 (NS Flush) 2 ml UNSCH PRN IV FLUSH 07/23/17 20:30 (Lasix Inj) 40 mg BID@ IVP 07/24/17 09:00 07/28/17 08:55 (Zyloprim) 300 mg DAILY PO 07/24/17 09:00 07/28/17 08:56 (Lioresal) 20 mg QID PO 07/23/17 21:00 07/28/17 13:57 (Vitamin D3) 2,000 units DAILY PO 07/24/17 09:00 07/28/17 08:56 (Meridian 5-325 Mg) 1 tab Q6H PRN PO 07/23/17 20:30 07/28/17 05:42 (Pravachol) 10 mg 2XWEEK PO 07/24/17 09:00 (Mag-Ox) 400 mg BID PO 07/23/17 21:00 07/28/17 08:56 (Zaroxolyn) 5 mg DAILY PO 07/24/17 09:00 07/28/17 08:55 (Lopressor) 6.25 mg Q12HR PO 07/23/17 21:00 07/28/17 08:57 (Singulair) 10 mg HS PO 07/23/17 21:00 07/27/17 20:41 (KCl) 20 meq DAILY PO 07/24/17 09:00 07/28/17 08:56 (Aldactone) 25 mg BID@18 PO 07/24/17 09:00 07/28/17 08:56 (Protonix) 20 mg BID PO 07/23/17 23:00 07/28/17 08:55 (Zofran Odt) 4 mg BID PO 07/23/17 21:00 07/28/17 08:56 (Coumadin) 6 mg DAILY@1600 PO 07/24/17 16:00 07/27/17 16:00 (Duoneb Neb) 1 ampule Q4HR NEB PRN NEB 07/24/17 01:30 07/28/17 11:20 (Imdur) 60 mg DAILY@0700 PO 07/26/17 07:00 07/28/17 05:42 (Zanaflex) 4 mg BID PO 07/25/17 21:00 07/28/17 08:55 (SoluMEDROL INJ) 125 mg Q6H IV PUSH 07/25/17 20:00 07/28/17 13:57 (Dulcolax Supp) 10 mg DAILY PRN RECTAL 07/27/17 01:30 (Milk Of Magnesia Liq) 30 ml Q6H PRN PO 07/27/17 01:30 07/27/17 01:34 (Wellbutrin) 75 mg Q12HR PO 07/27/17 21:00 07/28/17 08:56 (Mycostatin Liq) 5 ml QID SWISH-SWAL 07/27/17 21:00 07/28/17 13:57 (Neupogen Inj) 300 mcg DAILY@14 SQ 07/28/17 14:00 07/28/17 13:56 Vital Signs / I&O Vital Signs Date Time Temp Pulse Resp B/P (MAP) Pulse Ox O2 Delivery O2 Flow Rate FiO2 07/28/17 12:00 97.3 91 18 99/55 (70) 92 07/28/17 08:00 97.3 60 18 107/59 (75) 94 07/28/17 04:00 Room Air 07/28/17 04:00 64 07/28/17 03:47 97.3 62 16 121/56 (77) 94 07/28/17 00:34 97.4 60 18 113/54 (73) 95 07/28/17 00:00 Room Air 07/28/17 00:00 60 07/27/17 20:00 Room Air 07/27/17 20:00 97.4 60 18 115/58 (77) 97 07/27/17 20:00 60 07/27/17 16:00 97.4 63 20 103/51 (68) 94 I/O 07/27/17 07/27/17 07/27/17 07/28/17 07/28/17 07/28/17 07:00 15:00 23:00 07:00 15:00 23:00 Intake Total 100 ml 200 ml Output Total 650 ml 1250 ml Balance -550 ml 200 ml -1250 ml Intake Oral 100 ml 200 ml Output Urine Total 650 ml 1250 ml # Voids 4 4 # Bowel Movements 0 2 Physical Exam GENERAL: Well developed, well nourished. No acute distress. HEENT: Jugular venous pressure is 10 cm water. CHEST: Lungs clear to auscultation. CARDIAC: Regular rate and rhythm without S3, S4. II/ [place] base. [place] AVR sounds. ABDOMEN: Soft, nontender, no hepatosplenomegaly. Bowel sounds present. EXTREMITIES: No clubbing, cyanosis. Trace pretibial edema. Chronic venous stasis changes. Laboratory Laboratory Tests Test 07/28/17 13:54 White Blood Count 1.9 TH/MM3 Red Blood Count 3.53 MIL/MM3 Hemoglobin 9.8 GM/DL Hematocrit 28.8 % Mean Corpuscular Volume 81.7 FL Mean Corpuscular Hemoglobin 27.8 PG Mean Corpuscular Hemoglobin Concent 34.0 % Red Cell Distribution Width 18.0 % Platelet Count 94 TH/MM3 Mean Platelet Volume 8.6 FL CBC Comment AUTO DIFF Assessment and Plan Problem List: (1) Congestive heart failure (CHF) ICD Codes: I50.9 - Heart failure, unspecified Status: Acute Plan: Overall clinically improved. Good diuresis since admission. Dr. Ingram 's input regarding tricuspid valve surgery noted, appreciated. Unfortunately will be difficult to prevent repeated episodes of fluid retention until the tricuspid valve is repaired. REC consider change back to oral Bumex; would maintain therapy with metolazone and spironolactone as well nothing further to add at this point; will f/u PRN rest of her hospital stay (2) CAD (coronary artery disease) ICD Codes: I25.10 - Atherosclerotic heart disease of teller coronary artery without angina pectoris Status: Chronic Plan: Known totally occluded, well-collateralized RCA on cath 01/2017. Infrequent angina overall. Rec continue medical therapy. (3) Chronic atrial fibrillation ICD Codes: I48.2 - Chronic atrial fibrillation Status: Chronic Plan: Stable, chronic atrial fib. No HR control issues. Continue warfarin. (4) History of aortic valve replacement ICD Codes: Z95.2 - Presence of prosthetic heart valve Status: Chronic Plan: Normal AVR function by exam, most recent echoes. Continue anticoagulation therapy. (5) History of cardiac pacemaker ICD Codes: Z95.0 - Presence of cardiac pacemaker Status: Chronic (6) HTN (hypertension) ICD Codes: I10 - Essential (primary) hypertension Status: Chronic Plan: Hypertension not active issue. Code Status full code Discussed Condition With patient Problem Qualifiers (1) Congestive heart failure (CHF): Qualified Codes: I50.9 - Heart failure, unspecified (2) CAD (coronary artery disease): Qualified Codes: I25.118 - Atherosclerotic heart disease of teller coronary artery with other forms of angina pectoris (3) HTN (hypertension): Qualified Codes: I10 - Essential (primary) hypertension Gui Buitrago MD Jul 28, 2017 14:30
[2017-07-28 14:49] LABS: BANDS 3 % (0-6); LYMPHOCYTES 3 % (9-44); METAMYELOCYTES 1 % (0-1); MONOCYTES 18 % (0-8); NEUTROPHIL # MANUAL DIFF 1.5 TH/MM3 (1.8-7.7); POLYS (SEG NEUTROPHILS) 75 % (16-70)
[2017-07-28 14:50] LABS: OVALOCYTES 1+ (NORMAL); TOXIC GRANULATION 1+ (NORMAL)
[2017-07-28] MEDS: WARFARIN SOD 6 MG TAB PO SCH (16:50)
[2017-07-28] MEDS: MONTELUKAST SODIUM 10 MG TAB PO SCH (21:37)
[2017-07-29] VITALS (7 sets, daily range): BP systolic 99–151; BP diastolic 50–69; PULSE 59–61; RESP 15–20; TEMP 96.4–98.6; O2SAT 93–97
[2017-07-29] MEDS: methylPREDNISolone SOD SUCC 125 MG/2 ML VIAL IV PUSH SCH ×4 (02:31→21:28)
[2017-07-29] MEDS: ISOSORBIDE MONONITRATE 60 MG CR TAB (IMDUR) PO SCH (06:08)
--- NOTE | 2017-07-29 07:47 | HHI.PR ---
Subjective Remarks Says she has more pain in her legs today, says she is allergic to morphine and cannot have it she has a nonproductive shot. Says current medications are not helping much. She is less anxious. No shortness of breath she is satting well on room air at this time. However still has wheezing times per patient. No fever chills no nausea or vomiting Objective Vitals Vital Signs Date Time Temp Pulse Resp B/P (MAP) Pulse Ox O2 Delivery O2 Flow Rate FiO2 07/29/17 04:28 97.4 60 18 112/56 (74) 95 07/28/17 20:00 95 Room Air 07/28/17 20:00 59 07/28/17 18:31 98.0 59 18 129/62 (84) 95 07/28/17 16:09 97.4 59 18 124/60 (81) 92 07/28/17 16:00 Room Air 07/28/17 12:00 Room Air 07/28/17 12:00 97.3 91 18 99/55 (70) 92 07/28/17 12:00 59 07/28/17 08:00 Room Air 07/28/17 08:00 97.3 60 18 107/59 (75) 94 07/28/17 08:00 59 I/O 07/28/17 07/28/17 07/28/17 07/29/17 07/29/17 07/29/17 07:00 15:00 23:00 07:00 15:00 23:00 Intake Total 360 ml Output Total 1250 ml Balance -1250 ml 360 ml Intake Oral 360 ml Output Urine Total 1250 ml # Voids 4 4 # Bowel Movements 0 Result Diagram: 07/28/17 1354 Imaging Last Impressions Chest X-Ray 07/29/17 0000 Signed Impressions: Service Date/Time: Saturday, July 29, 2017 07:35 - CONCLUSION: 1. Minimal bibasilar airspace disease, presumably atelectasis. 2. Otherwise, stable chest. Brian Rosa MD Thoracic Spine CT 07/24/17 0000 Signed Impressions: Service Date/Time: July 19:38 - CONCLUSION: Degenerative changes throughout the thoracic spine. Multilevel disc bulges and foraminal narrowing as described above. No significant spinal stenosis. No acute compression fracture or subluxation. 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 Old lacunar infarct involving the left cerebellar hemisphere. Moderate periventricular and subcortical white matter small vessel ischemic changes bilaterally. No acute infarct, acute hemorrhage, mass effect or extra-axial fluid collections. Jaycob Camara MD Cervical Spine CT 07/24/17 0000 Signed Impressions: Service Date/Time: July 19:34 - CONCLUSION: 1. Mild spinal stenosis and moderate to severe bilateral foraminal narrowing at C5-6. 2. Mild left neuroforaminal narrowing at C3-4 and mild bilateral foraminal narrowing at C4-5. 3. No acute fracture or prevertebral soft tissue swelling. 1. Jaycob Camara MD Objective Remarks GENERAL: Chronically ill-appearing female SKIN: Extensive venous stasis changes bilateral lower extremities. CARDIOVASCULAR: Normal rate, regular rhythm. 2 out of 6 murmur over the right SB and apex. RESPIRATORY: Clear to auscultation. Breath sounds equal bilaterally. No wheezes , rales, or rhonchi. GASTROINTESTINAL: Abdomen is morbidly obese. Nontender. Some edema and probable ascites. MUSCULOSKELETAL: Bilateral lower extremities with 2+ edema. NEUROLOGICAL: Awake and alert. Cranial nerves II through XII grossly intact. Motor and sensory grossly within normal limits upper extremities. Weakness lower extremities 4 out of 5. Normal speech. A/P Problem List: (1) Anasarca ICD Code: R60.1 - Generalized edema Status: Acute (2) Severe tricuspid regurgitation ICD Code: I07.1 - Rheumatic tricuspid insufficiency Status: Acute (3) Permanent atrial fibrillation ICD Code: I48.2 - Chronic atrial fibrillation (4) Ascites ICD Code: R18.8 - Other ascites (5) History of aortic valve replacement ICD Code: Z95.2 - Presence of prosthetic heart valve Status: Chronic (6) CKD (chronic kidney disease) stage 3, GFR 30-59 ml/min ICD Code: N18.3 - Chronic kidney disease, stage 3 (moderate) (7) Follicular lymphoma grade I ICD Code: C82.00 - Follicular lymphoma grade I, unspecified site (8) Pancytopenia ICD Code: D61.818 - Other pancytopenia (9) H/O multiple sclerosis ICD Code: Z86.69 - Personal history of other diseases of the nervous system and sense organs Assessment and Plan (1) Anasarca ICD Code: R60.1 - Generalized edema Status: Acute Plan: Concern for valvulopathy/right heart failure as the cause. Patient has severe tricuspid regurgitation. Recent workup by GI and oncology. - Cardiology consulted. -Treated with IV Lasix 40 mg twice daily, continue metolazone and spironolactone. BNP normal Medicine patient is status post paracentesis as OP and 5.7 L was taken out. Fluid was negative for malignant cells. -Restrict fluid (2) Severe tricuspid regurgitation ICD Code: I07.1 - Rheumatic tricuspid insufficiency Status: Acute Plan: Cardiology consulted as above. Consult cardio thoracic surgeon for evaluation. Records sent to [facility] for evaluation. (3) Permanent atrial fibrillation ICD Code: I48.2 - Chronic atrial fibrillation Plan: Rate controlled. Continue Coumadin. INR 2.1 on admission. Goal is around 2.5. Increase Coumadin to 6 mg daily. Monitor INR. Consult pharmacy (4) Ascites ICD Code: R18.8 - Other ascites Plan: It seems that she is reaccumulating fluid. Status post paracentesis 7 days ago. -continue to monitor. May need repeat paracentesis if she is not responding enough to IV diuretics. (5) History of aortic valve replacement ICD Code: Z95.2 - Presence of prosthetic heart valve Status: Chronic Plan: Anticoagulated as above (6) CKD (chronic kidney disease) stage 3, GFR 30-59 ml/min ICD Code: N18.3 - Chronic kidney disease, stage 3 (moderate) Plan: Monitor closely with diuretics (7) Follicular lymphoma grade I ICD Code: C82.00 - Follicular lymphoma grade I, unspecified site Plan: consult hem/onc (8) Pancytopenia ICD Code: D61.818 - Other pancytopenia Plan: placed in isolation Consult hem/onc for eval Start neupogen (9) H/O multiple sclerosis ICD Code: Z86.69 - Personal history of other diseases of the nervous system and sense organs Plan: poss exacerbation at this time consult neurology for further eval . CT spine and brain reviewed Started 07/25 to solumedrol 125 mg q 6 hr iv (for three days) per neuro recommendations. Completed course consult pt/ot Also with depression /anxiety. Consult psych, appreciate recommendations Wellbutrin 75mg BID Will begin Zoloft 25mg PO daily Started on 0.5mg Clonidine BID as needed for breakthrough anxiety Discussed Condition With pt, nurse Alisson Alvarado MD Jul 29, 2017 07:46
--- NOTE | 2017-07-29 07:56 | RADRPT ---
EXAM DATE/TIME: 07/29/2017 07:35 [facility] COMPARISON: CHEST SINGLE AP, July 23, 2017, 17:43. INDICATIONS : Cough and chest congestion. MEDICAL HISTORY : Carcinoma, lymphoma. Diabetes mellitus type 2. Hypertension. Cardiovascular disease. Multiple scleros is. Congestive heart failure. Hypercholesterolemia. Bilateral cataracts. TIA. Seizures. Bradycardia. Asthma. GERD. Hematuria. Renal calculi.Non-Hodgkin's lymphoma. SURGICAL HISTORY : Hysterectomy. Pacemaker. Aortic Valve Replacement, Left Oopherectomy. Infusaport. Appendectomy. ENCOUNTER: Subsequent ACUITY: 3 weeks PAIN SCORE: 0/10 LOCATION: Bilateral chest FINDINGS: Stable right IJ [id number]. Median sternotomy wires with stable left dual-lead pacemaker in place. Mild diffuse interstitial prominence with minimal bibasilar airspace disease. Cardiomediastinal cont ours are stable. Remainder of exam is unchanged. CONCLUSION: 1. Minimal bibasilar airspace disease, presumably atelectasis. 2. Otherwise, stable chest. Brian Rosa MD on July 29, 2017 at 7:53 Board Certified Radiologist. This report was verified electronically.
[2017-07-29] MEDS: SODIUM CHLORIDE 0.9% FLUSH 10 ML FLUSH IV FLUSH SCH ×2 (08:23→21:28)
[2017-07-29] MEDS: buPROPion HCL 75 MG TAB PO SCH ×2 (09:00→21:28)
[2017-07-29] MEDS: MAGNESIUM OXIDE 400 MG TAB PO SCH ×2 (09:00→21:28)
[2017-07-29] MEDS: METOPROLOL TARTRATE 25 MG TAB PO SCH ×2 (09:00→21:28)
[2017-07-29] MEDS: NYSTATIN SUSP 500,000 U/5 ML CUP SWISH-SWAL SCH ×4 (09:00→21:28)
[2017-07-29] MEDS: METOLAZONE 5 MG TAB PO SCH (09:00)
[2017-07-29] MEDS: PANTOPRAZOLE SOD 20 MG DELAYED RELEASE TAB PO SCH ×2 (09:00→21:27)
[2017-07-29] MEDS: BUMETANIDE 1 MG TAB PO SCH (09:00)
[2017-07-29] MEDS: BACLOFEN 20 MG TAB PO SCH ×4 (09:00→21:28)
[2017-07-29] MEDS: POTASSIUM CHLORIDE 20 MEQ CONTROLLED RELEASE TAB PO SCH (09:00)
[2017-07-29] MEDS: CHOLECALCIFEROL (VIT D3) 1000 UNIT TAB PO SCH (09:00)
[2017-07-29] MEDS: ALLOPURINOL 300 MG TAB PO SCH (09:00)
[2017-07-29] MEDS: ONDANSETRON ODT 4 MG TAB PO SCH ×2 (09:00→21:28)
[2017-07-29] MEDS: SPIRONOLACTONE 25 MG TAB PO SCH ×2 (09:00→16:53)
--- NOTE | 2017-07-29 12:19 | PD.ONC.PN ---
Subjective Subjective Remarks Afebrile overnight. Patient resting in bed. Was having chest pain this morning. Pain improved now that she has received pain medication. now she feels a bit "foggy" due to the pain medication. Objective Data Date Time Temp Pulse Resp B/P (MAP) Pulse Ox O2 Delivery O2 Flow Rate FiO2 07/29/17 08:00 97.4 60 20 135/64 (87) 93 07/29/17 04:28 97.4 60 18 112/56 (74) 95 07/28/17 20:00 95 Room Air 07/28/17 20:00 59 07/28/17 18:31 98.0 59 18 129/62 (84) 95 07/28/17 16:09 97.4 59 18 124/60 (81) 92 07/28/17 16:00 Room Air Result Diagram: 07/28/17 1354 Laboratory Results Laboratory Tests Test 07/28/17 13:54 White Blood Count 1.9 TH/MM3 Red Blood Count 3.53 MIL/MM3 Hemoglobin 9.8 GM/DL Hematocrit 28.8 % Mean Corpuscular Volume 81.7 FL Mean Corpuscular Hemoglobin 27.8 PG Mean Corpuscular Hemoglobin Concent 34.0 % Red Cell Distribution Width 18.0 % Platelet Count 94 TH/MM3 Mean Platelet Volume 8.6 FL CBC Comment AUTO DIFF Differential Total Cells Counted 100 Neutrophils % (Manual) 75 % Band Neutrophils % 3 % Lymphocytes % 3 % Monocytes % 18 % Neutrophils # (Manual) 1.5 TH/MM3 Metamyelocytes 1 % Differential Comment FINAL DIFF MANUAL Toxic Granulation 1+ Platelet Estimate LOW Platelet Morphology Comment NORMAL Ovalocytes 1+ Imaging Studies Last 24 hours Impressions Chest X-Ray 07/29/17 0000 Signed Impressions: Service Date/Time: Saturday, July 29, 2017 07:35 - CONCLUSION: 1. Minimal bibasilar airspace disease, presumably atelectasis. 2. Otherwise, stable chest. Brian Rosa MD Administered Medications Medications (Trade) Dose Ordered Sig/Love Route PRN Reason Start Time Stop Time Status Last Admin Dose Admin Sodium Chloride (NS Flush) 2 ml BID IV FLUSH 07/23/17 21:00 07/29/17 08:23 Allopurinol (Zyloprim) 300 mg DAILY PO 07/24/17 09:00 07/29/17 09:00 Baclofen (Lioresal) 20 mg QID PO 07/23/17 21:00 07/29/17 09:00 Cholecalciferol (Vitamin D3) 2,000 units DAILY PO 07/24/17 09:00 07/29/17 09:00 Acetaminophen/ Hydrocodone Bitart ([place] 5-325 Mg) 1 tab Q6H PRN PO PAIN 07/23/17 20:30 07/28/17 21:53 Magnesium Oxide (Mag-Ox) 400 mg BID PO 07/23/17 21:00 07/29/17 09:00 Metolazone (Zaroxolyn) 5 mg DAILY PO 07/24/17 09:00 07/29/17 09:00 Metoprolol Tartrate (Lopressor) 6.25 mg Q12HR PO 07/23/17 21:00 07/29/17 09:00 Montelukast Sodium (Singulair) 10 mg HS PO 07/23/17 21:00 07/28/17 21:37 Potassium Chloride (KCl) 20 meq DAILY PO 07/24/17 09:00 07/29/17 09:00 Spironolactone (Aldactone) 25 mg BID@18 PO 07/24/17 09:00 07/29/17 09:00 Pantoprazole Sodium (Protonix) 20 mg BID PO 07/23/17 23:00 07/29/17 09:00 Ondansetron HCl (Zofran Odt) 4 mg BID PO 07/23/17 21:00 07/29/17 09:00 Warfarin Sodium (Coumadin) 6 mg DAILY@1600 PO 07/24/17 16:00 07/28/17 16:50 Albuterol/ Ipratropium (Duoneb Neb) 1 ampule Q4HR NEB PRN NEB sob 07/24/17 01:30 07/28/17 14:57 Isosorbide Mononitrate (Imdur) 60 mg DAILY@0700 PO 07/26/17 07:00 07/29/17 06:08 Tizanidine HCl (Zanaflex) 4 mg BID PO 07/25/17 21:00 07/29/17 09:00 Methylprednisolone Sodium Succinate (SoluMEDROL INJ) 125 mg Q6H IV PUSH 07/25/17 20:00 07/29/17 08:22 Magnesium Hydroxide (Milk Of Magnesia Liq) 30 ml Q6H PRN PO CONSTIPATION 07/27/17 01:30 07/27/17 01:34 Bupropion HCl (Wellbutrin) 75 mg Q12HR PO 07/27/17 21:00 07/29/17 09:00 Nystatin (Mycostatin Liq) 5 ml QID SWISH-SWAL 07/27/17 21:00 07/28/17 21:38 Filgrastim (Neupogen Inj) 300 mcg DAILY@14 SQ 07/28/17 14:00 07/28/17 13:56 Bumetanide (Bumetanide) 3 mg DAILY PO 07/29/17 09:00 07/29/17 09:00 Objective Remarks GENERAL: Lethargic female, lying supine in bed in nad. Nods off to sleep during conversation. SKIN: Warm and dry. HEAD: Normocephalic. EYES: No injection or drainage. NECK: Supple, trachea midline. CARDIOVASCULAR: Regular rate and rhythm RESPIRATORY: anterior cheung clear. GASTROINTESTINAL: Abdomen soft, non-tender, nondistended. EXTREMITIES: No cyanosis. NEUROLOGICAL: awake, lethargic, normal speech. Assessment/Plan Problem List: (1) Pancytopenia ICD Codes: D61.818 - Other pancytopenia Plan: --started on Neupogen on 07/28 --due to underlying liver disease/cirrhosis and splenomegaly. --hemoglobin and platelet count are relatively stable. (2) Follicular lymphoma grade I ICD Codes: C82.00 - Follicular lymphoma grade I, unspecified site Plan: --Follicular lymphoma grade 1. --completed 4 cycles Rituxan and bendamustine in March 2017-->PET scan showed a good response and resolution of the hypermetabolic uptake in the abdominal lymph node. ------started on maintenance Rituxan. last dose was early June. no evidence of recurrent disease. (3) Congestive heart failure (CHF) ICD Codes: I50.9 - Heart failure, unspecified Status: Acute Plan: --possible transfer to [facility]. -- has a history of aortic valve replacement. --was recently found to have severe tricuspid valve regurgitation. -- is being evaluated by Cardiothoracic Surgery for possible surgical repair. Assessment 67y/o female with lymphoma and pancytopenia. h/o Follicular lymphoma grade 1. Diabetes mellitus. Transient ischemic attack. Chronic atrial fibrillation. Valvular disease. Hypertension. Gout. Asthma. Nephrolithiasis. Multiple sclerosis. Questionable cirrhosis with splenomegaly.Pancytopenia. HPI (brought forward for continuity of care): history of grade 1 follicular lymphoma, completed chemotherapy in March 2017, readmitted to hospital with increased shortness of breath and edema. was just discharged from the hospital earlier this week for symptomatic bradycardia, dizziness, hypertension. During the hospital stay, she was also found to have anasarca. She had significant ascites and had GI workup including paracentesis, which did not show any malignancy. She said when she went home, she felt well for a day.By Friday afternoon, she had increased lower extremity weakness. She also has a shuffling gait. She said that she swelled up, and the diuretic does not seem to work. She came back to the hospital. She has been having chest pain. She has PND and orthopnea. Plan 1. continue Neupogen 2. monitor CBC 3. continue supportive care Attending Statement The exam, history, and the medical decision-making described in the above note were completed with the assistance of the mid-level provider. I reviewed and agree with the findings presented. I attest that I had a [id number] encounter with the patient on the same day, and personally performed and documented my assessment and findings in the medical record. Feels tired. WBC trending up with neupogen. Remains afebrile. Continue to monitor CBC. Problem Qualifiers (1) Congestive heart failure (CHF): Qualified Codes: I50.9 - Heart failure, unspecified Yokasta Andrew Jul 29, 2017 12:19 Lane Mayberry MD Jul 29, 2017 17:45
[2017-07-29] MEDS: FILGRASTIM 300 MCG/ML VIAL SQ SCH (14:19)
[2017-07-29 14:42] LABS: HEMATOCRIT 30.9 % (35.0-46.0); HEMOGLOBIN 10.8 GM/DL (11.6-15.3); MEAN CELL VOLUME 81.1 FL (80.0-100.0); MEAN CORPUSCULAR HEMOGLOBIN 28.3 PG (27.0-34.0); MEAN CORPUSCULAR HGB CONC 34.9 % (32.0-36.0); MEAN PLATELET VOLUME 8.9 FL (7.0-11.0); PLATELET COUNT 174 TH/MM3 (150-450); RED BLOOD COUNT 3.81 MIL/MM3 (4.00-5.30)
[2017-07-29 16:14] LABS: BANDS 13 % (0-6); LYMPHOCYTES 5 % (9-44); METAMYELOCYTES 2 % (0-1); MONOCYTES 18 % (0-8); MYELOCYTES 1 % (0-0); NEUTROPHIL # MANUAL DIFF 2.3 TH/MM3 (1.8-7.7); POLYS (SEG NEUTROPHILS) 61 % (16-70)
[2017-07-29 16:15] LABS: TOXIC GRANULATION 1+ (NORMAL)
[2017-07-29 16:16] LABS: OVALOCYTES 1+ (NORMAL)
[2017-07-29] MEDS: WARFARIN SOD 6 MG TAB PO SCH (16:53)
[2017-07-29] MEDS: MONTELUKAST SODIUM 10 MG TAB PO SCH (21:27)
[2017-07-30] VITALS (10 sets, daily range): BP systolic 123–165; BP diastolic 60–69; PULSE 57–62; RESP 17–20; TEMP 98.8–101.2; O2SAT 90–98
[2017-07-30] MEDS: methylPREDNISolone SOD SUCC 125 MG/2 ML VIAL IV PUSH SCH ×2 (01:20→08:53)
[2017-07-30] MEDS: SODIUM CHLORIDE 0.9% FLUSH 10 ML FLUSH IV FLUSH PRN (01:21)
[2017-07-30 05:39] LABS: HEMATOCRIT 34.9 % (35.0-46.0); HEMOGLOBIN 11.9 GM/DL (11.6-15.3); MEAN CELL VOLUME 81.2 FL (80.0-100.0); MEAN CORPUSCULAR HEMOGLOBIN 27.8 PG (27.0-34.0); MEAN CORPUSCULAR HGB CONC 34.2 % (32.0-36.0); PLATELET COUNT 95 TH/MM3 (150-450); RED BLOOD COUNT 4.29 MIL/MM3 (4.00-5.30); RED CELL DISTRIBUTION WIDTH 18.4 % (11.6-17.2); WHITE BLOOD COUNT 2.9 TH/MM3 (4.0-11.0)
[2017-07-30 05:55] LABS: BICARBONATE 29.8 MEQ/L (21.0-32.0); CALCIUM 9.1 MG/DL (8.5-10.1); CREATININE 1.56 MG/DL (0.50-1.00)
[2017-07-30] MEDS: ISOSORBIDE MONONITRATE 60 MG CR TAB (IMDUR) PO SCH ×3 (06:35→08:59)
[2017-07-30 07:07] LABS: BANDS 11 % (0-6); LYMPHOCYTES 6 % (9-44); METAMYELOCYTES 6 % (0-1); MONOCYTES 19 % (0-8); MYELOCYTES 1 % (0-0); NEUTROPHIL # MANUAL DIFF 2.2 TH/MM3 (1.8-7.7); POLYS (SEG NEUTROPHILS) 57 % (16-70)
[2017-07-30 07:09] LABS: ACANTHOCYTES OCC (NORMAL); OVALOCYTES 1+ (NORMAL)
--- NOTE | 2017-07-30 08:03 | HHI.PR ---
Subjective Remarks Feels sleepy. says she is more sob and she is coughing no productive cough.Feels very tired. Still with pain in her legs. No fever ro chills. Overnight. Objective Vitals Vital Signs Date Time Temp Pulse Resp B/P (MAP) Pulse Ox O2 Delivery O2 Flow Rate FiO2 07/30/17 05:29 99.7 57 17 131/63 (85) 93 07/30/17 04:00 Room Air 07/30/17 00:00 Room Air 07/29/17 23:47 59 07/29/17 23:09 97.2 60 15 151/65 (93) 94 07/29/17 20:00 59 07/29/17 20:00 96.4 60 17 151/69 (96) 97 07/29/17 20:00 Room Air 2.00 07/29/17 16:00 97.4 60 20 130/58 (82) 95 07/29/17 16:00 60 07/29/17 16:00 Room Air 07/29/17 12:00 Room Air 07/29/17 12:00 98.6 61 20 99/50 (66) 94 I/O 07/29/17 07/29/17 07/29/17 07/30/17 07/30/17 07/30/17 07:00 15:00 23:00 07:00 15:00 23:00 Intake Total 480 ml Output Total 700 ml Balance 480 ml -700 ml Intake Oral 480 ml Output Urine Total 700 ml # Voids 7 # Bowel Movements 0 Result Diagram: 07/30/17 0520 07/30/17 0520 Imaging Last Impressions Chest X-Ray 07/29/17 0000 Signed Impressions: Service Date/Time: Saturday, July 29, 2017 07:35 - CONCLUSION: 1. Minimal bibasilar airspace disease, presumably atelectasis. 2. Otherwise, stable chest. Brian Rosa MD Thoracic Spine CT 07/24/17 0000 Signed Impressions: Service Date/Time: July 19:38 - CONCLUSION: Degenerative changes throughout the thoracic spine. Multilevel disc bulges and foraminal narrowing as described above. No significant spinal stenosis. No acute compression fracture or subluxation. 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 Old lacunar infarct involving the left cerebellar hemisphere. Moderate periventricular and subcortical white matter small vessel ischemic changes bilaterally. No acute infarct, acute hemorrhage, mass effect or extra-axial fluid collections. Jaycob Camara MD Cervical Spine CT 07/24/17 0000 Signed Impressions: Service Date/Time: July 19:34 - CONCLUSION: 1. Mild spinal stenosis and moderate to severe bilateral foraminal narrowing at C5-6. 2. Mild left neuroforaminal narrowing at C3-4 and mild bilateral foraminal narrowing at C4-5. 3. No acute fracture or prevertebral soft tissue swelling. 1. Jaycob Camara MD Objective Remarks GENERAL: Chronically ill-appearing female, somnolent but arousable and conversant. SKIN: Extensive venous stasis changes bilateral lower extremities. CARDIOVASCULAR: Normal rate, regular rhythm. 2 out of 6 murmur over the right SB and apex. RESPIRATORY: Clear to auscultation. Breath sounds equal bilaterally. No wheezes , rales, or rhonchi. GASTROINTESTINAL: Abdomen is morbidly obese. Nontender. Some edema and probable ascites. MUSCULOSKELETAL: Bilateral lower extremities with 2+ edema. NEUROLOGICAL: Awake and alert. Cranial nerves grossly intact. Motor and sensory grossly within normal limits upper extremities. Pain in her BL LE on palpation. Weakness lower extremities 4 out of 5. Normal speech. A/P Problem List: (1) Anasarca ICD Code: R60.1 - Generalized edema Status: Acute (2) Severe tricuspid regurgitation ICD Code: I07.1 - Rheumatic tricuspid insufficiency Status: Acute (3) Permanent atrial fibrillation ICD Code: I48.2 - Chronic atrial fibrillation (4) Ascites ICD Code: R18.8 - Other ascites (5) History of aortic valve replacement ICD Code: Z95.2 - Presence of prosthetic heart valve Status: Chronic (6) CKD (chronic kidney disease) stage 3, GFR 30-59 ml/min ICD Code: N18.3 - Chronic kidney disease, stage 3 (moderate) (7) Follicular lymphoma grade I ICD Code: C82.00 - Follicular lymphoma grade I, unspecified site (8) Pancytopenia ICD Code: D61.818 - Other pancytopenia (9) H/O multiple sclerosis ICD Code: Z86.69 - Personal history of other diseases of the nervous system and sense organs Assessment and Plan (1) Anasarca ICD Code: R60.1 - Generalized edema Status: Acute Plan: Concern for valvulopathy/right heart failure as the cause. Patient has severe tricuspid regurgitation. Recent workup by GI and oncology. - Cardiology consulted. -Treated with IV Lasix 40 mg twice daily, continue metolazone and spironolactone. BNP normal DC lasix and started on bumex po 3mg per cardio Medicine patient is status post paracentesis as OP and 5.7 L was taken out. Fluid was negative for malignant cells. -Restrict fluid Monitor electrolytes (2) Severe tricuspid regurgitation ICD Code: I07.1 - Rheumatic tricuspid insufficiency Status: Acute Plan: Cardiology consulted as above. Consult cardio thoracic surgeon for evaluation. Records sent to [facility] for evaluation. (3) Permanent atrial fibrillation ICD Code: I48.2 - Chronic atrial fibrillation Plan: Rate controlled. Continue Coumadin. INR 2.1 on admission. Goal is around 2.5. Increase Coumadin to 6 mg daily. Monitor INR. Consult pharmacy (4) Ascites ICD Code: R18.8 - Other ascites Plan: It seems that she is reaccumulating fluid. Status post paracentesis 7 days ago. -continue to monitor. May need repeat paracentesis if she is not responding enough to IV diuretics. (5) History of aortic valve replacement ICD Code: Z95.2 - Presence of prosthetic heart valve Status: Chronic Plan: Anticoagulated as above (6) CKD (chronic kidney disease) stage 3, GFR 30-59 ml/min ICD Code: N18.3 - Chronic kidney disease, stage 3 (moderate) Plan: Monitor closely with diuretics (7) Follicular lymphoma grade I ICD Code: C82.00 - Follicular lymphoma grade I, unspecified site Plan: consult hem/onc (8) Pancytopenia ICD Code: D61.818 - Other pancytopenia Plan: placed in isolation Consult hem/onc appreciate recommendations DC neupogen per hem/onc Improved. DC neutropenic cautions (9) H/O multiple sclerosis ICD Code: Z86.69 - Personal history of other diseases of the nervous system and sense organs Plan: poss exacerbation at this time consult neurology for further eval . CT spine and brain reviewed Received solumedrol 125 mg q 6 hr iv per neuro recommendations. Completed course consult pt/ot stopped her Zanaflex and Baclofen as noted lethargic Also with depression /anxiety. Consult psych, appreciate recommendations Wellbutrin 75mg BID Will begin Zoloft 25mg PO daily Started on 0.5mg Clonidine BID as needed for breakthrough anxiety Discussed Condition With pt, nurse DC plan: Patient is evaluated for tertiary care center for poss surgery patient with severe MV regurgitation Alisson Alvarado MD Jul 30, 2017 08:03
[2017-07-30] MEDS: SODIUM CHLORIDE 0.9% FLUSH 10 ML FLUSH IV FLUSH SCH ×2 (08:55→22:17)
[2017-07-30] MEDS: METOPROLOL TARTRATE 25 MG TAB PO SCH ×2 (08:59→22:16)
[2017-07-30] MEDS: PANTOPRAZOLE SOD 20 MG DELAYED RELEASE TAB PO SCH ×2 (08:59→22:17)
[2017-07-30] MEDS: MAGNESIUM OXIDE 400 MG TAB PO SCH ×2 (08:59→22:17)
[2017-07-30] MEDS: CHOLECALCIFEROL (VIT D3) 1000 UNIT TAB PO SCH (08:59)
[2017-07-30] MEDS: BACLOFEN 20 MG TAB PO SCH (08:59)
[2017-07-30] MEDS: ALLOPURINOL 300 MG TAB PO SCH (08:59)
[2017-07-30] MEDS: SPIRONOLACTONE 25 MG TAB PO SCH ×2 (08:59→18:00)
[2017-07-30] MEDS: BUMETANIDE 1 MG TAB PO SCH (09:00)
[2017-07-30] MEDS: buPROPion HCL 75 MG TAB PO SCH ×2 (09:00→21:00)
[2017-07-30] MEDS: NYSTATIN SUSP 500,000 U/5 ML CUP SWISH-SWAL SCH ×4 (09:00→22:17)
[2017-07-30] MEDS: METOLAZONE 5 MG TAB PO SCH (09:00)
[2017-07-30] MEDS: ONDANSETRON ODT 4 MG TAB PO SCH ×2 (09:00→22:17)
[2017-07-30] MEDS: POTASSIUM CHLORIDE 20 MEQ CONTROLLED RELEASE TAB PO SCH (09:01)
--- NOTE | 2017-07-30 11:19 | PD.ONC.PN ---
Subjective Subjective Remarks Tmax 99.7 overnight. Patient resting in bed. very lethargic. has a gurgling cough. Objective Data Date Time Temp Pulse Resp B/P (MAP) Pulse Ox O2 Delivery O2 Flow Rate FiO2 07/30/17 08:03 98.8 60 20 142/63 (89) 94 07/30/17 05:29 99.7 57 17 131/63 (85) 93 07/30/17 04:00 Room Air 07/30/17 00:00 Room Air 07/29/17 23:47 59 07/29/17 23:09 97.2 60 15 151/65 (93) 94 07/29/17 20:00 59 07/29/17 20:00 96.4 60 17 151/69 (96) 97 07/29/17 20:00 Room Air 2.00 07/29/17 16:00 97.4 60 20 130/58 (82) 95 07/29/17 16:00 60 07/29/17 16:00 Room Air 07/29/17 12:00 Room Air 07/29/17 12:00 98.6 61 20 99/50 (66) 94 07/30/17 07/30/17 07/30/17 07:00 15:00 23:00 Output Total 700 ml Balance -700 ml Result Diagram: 07/30/17 0507/30/17 05 Laboratory Results Laboratory Tests Test 07/29/17 14:27 07/30/17 05:20 White Blood Count 3.0 TH/MM3 2.9 TH/MM3 Red Blood Count 3.81 MIL/MM3 4.29 MIL/MM3 Hemoglobin 10.8 GM/DL 11.9 GM/DL Hematocrit 30.9 % 34.9 % Mean Corpuscular Volume 81.1 FL 81.2 FL Mean Corpuscular Hemoglobin 28.3 PG 27.8 PG Mean Corpuscular Hemoglobin Concent 34.9 % 34.2 % Red Cell Distribution Width 18.0 % 18.4 % Platelet Count 174 TH/MM3 95 TH/MM3 Mean Platelet Volume 8.9 FL 9.0 FL CBC Comment AUTO DIFF AUTO DIFF Differential Total Cells Counted 100 100 Neutrophils % (Manual) 61 % 57 % Band Neutrophils % 13 % 11 % Lymphocytes % 5 % 6 % Monocytes % 18 % 19 % Neutrophils # (Manual) 2.3 TH/MM3 2.2 TH/MM3 Metamyelocytes 2 % 6 % Myelocytes 1 % 1 % Differential Comment FINAL DIFF MANUAL FINAL DIFF MANUAL Toxic Granulation 1+ Platelet Estimate NORMAL LOW Platelet Morphology Comment NORMAL NORMAL Ovalocytes 1+ 1+ Acanthocytes OCC Blood Urea Nitrogen 44 MG/DL Creatinine 1.56 MG/DL Random Glucose 212 MG/DL Calcium Level 9.1 MG/DL Sodium Level 130 MEQ/L Potassium Level 3.3 MEQ/L Chloride Level 91 MEQ/L Carbon Dioxide Level 29.8 MEQ/L Anion Gap 9 MEQ/L Estimat Glomerular Filtration Rate 33 ML/MIN Administered Medications Medications (Trade) Dose Ordered Sig/Love Route PRN Reason Start Time Stop Time Status Last Admin Dose Admin Sodium Chloride (NS Flush) 2 ml BID IV FLUSH 07/23/17 21:00 07/30/17 08:55 Sodium Chloride (NS Flush) 2 ml UNSCH PRN IV FLUSH FLUSH AFTER USING IV ACCESS 07/23/17 20:30 07/30/17 01:21 Allopurinol (Zyloprim) 300 mg DAILY PO 07/24/17 09:00 07/30/17 08:59 Cholecalciferol (Vitamin D3) 2,000 units DAILY PO 07/24/17 09:00 07/30/17 08:59 Acetaminophen/ Hydrocodone Bitart (Bartow 5-325 Mg) 1 tab Q6H PRN PO PAIN 07/23/17 20:30 07/28/17 21:53 Magnesium Oxide (Mag-Ox) 400 mg BID PO 07/23/17 21:00 07/30/17 08:59 Metolazone (Zaroxolyn) 5 mg DAILY PO 07/24/17 09:00 07/30/17 09:00 Metoprolol Tartrate (Lopressor) 6.25 mg Q12HR PO 07/23/17 21:00 07/30/17 08:59 Montelukast Sodium (Singulair) 10 mg HS PO 07/23/17 21:00 07/29/17 21:27 Potassium Chloride (KCl) 20 meq DAILY PO 07/24/17 09:00 07/30/17 09:01 Spironolactone (Aldactone) 25 mg BID@ PO 07/24/17 09:00 07/30/17 08:59 Pantoprazole Sodium (Protonix) 20 mg BID PO 07/23/17 23:00 07/30/17 08:59 Ondansetron HCl (Zofran Odt) 4 mg BID PO 07/23/17 21:00 07/30/17 09:00 Warfarin Sodium (Coumadin) 6 mg DAILY@1600 PO 07/24/17 16:00 07/29/17 16:53 Albuterol/ Ipratropium (Duoneb Neb) 1 ampule Q4HR NEB PRN NEB sob 07/24/17 01:30 07/28/17 14:57 Isosorbide Mononitrate (Imdur) 60 mg DAILY@0700 PO 07/26/17 07:00 07/30/17 08:59 Methylprednisolone Sodium Succinate (SoluMEDROL INJ) 125 mg Q6H IV PUSH 07/25/17 20:00 07/30/17 08:53 Magnesium Hydroxide (Milk Of Magnesia Liq) 30 ml Q6H PRN PO CONSTIPATION 07/27/17 01:30 07/27/17 01:34 Bupropion HCl (Wellbutrin) 75 mg Q12HR PO 07/27/17 21:00 07/30/17 09:00 Nystatin (Mycostatin Liq) 5 ml QID SWISH-SWAL 07/27/17 21:00 07/30/17 09:00 Bumetanide (Bumetanide) 3 mg DAILY PO 07/29/17 09:00 07/30/17 09:00 Objective Remarks GENERAL: lethargic middle aged female, lying in bed. SKIN: Warm and dry. HEAD: Normocephalic. NECK: Supple, trachea midline. CARDIOVASCULAR: +S1/S2 RESPIRATORY: +coarse rhonchi anterior cheung. on O2 via NC GASTROINTESTINAL: Abdomen distended. non tender to palpation. EXTREMITIES: No cyanosis. . NEUROLOGICAL: lethargic, answers questions but does not open eyes during interview. oriented x 0 Assessment/Plan Problem List: (1) Pancytopenia ICD Codes: D61.818 - Other pancytopenia Plan: --will give Neupogen PRN. --due to underlying liver disease/cirrhosis and splenomegaly. --hemoglobin and platelet count are relatively stable. (2) Follicular lymphoma grade I ICD Codes: C82.00 - Follicular lymphoma grade I, unspecified site Plan: --Follicular lymphoma grade 1. --completed 4 cycles Rituxan and bendamustine in March 2017-->PET scan showed a good response and resolution of the hypermetabolic uptake in the abdominal lymph node. ------started on maintenance Rituxan. last dose was early June. no evidence of recurrent disease. (3) Congestive heart failure (CHF) ICD Codes: I50.9 - Heart failure, unspecified Status: Acute Plan: --possible transfer to [facility]. -- has a history of aortic valve replacement. --was recently found to have severe tricuspid valve regurgitation. -- is being evaluated by Cardiothoracic Surgery for possible surgical repair. Assessment 67y/o female with lymphoma and pancytopenia. h/o Follicular lymphoma grade 1. Diabetes mellitus. Transient ischemic attack. Chronic atrial fibrillation. Valvular disease. Hypertension. Gout. Asthma. Nephrolithiasis. Multiple sclerosis. Questionable cirrhosis with splenomegaly.Pancytopenia. HPI (brought forward for continuity of care): history of grade 1 follicular lymphoma, completed chemotherapy in March 2017, readmitted to hospital with increased shortness of breath and edema. was just discharged from the hospital earlier this week for symptomatic bradycardia, dizziness, hypertension. During the hospital stay, she was also found to have anasarca. She had significant ascites and had GI workup including paracentesis, which did not show any malignancy. She said when she went home, she felt well for a day.By Friday afternoon, she had increased lower extremity weakness. She also has a shuffling gait. She said that she swelled up, and the diuretic does not seem to work. She came back to the hospital. She has been having chest pain. She has PND and orthopnea. Plan 1. I have stopped her Zanaflex and Baclofen for now as she is extremely lethargic, almost obtunded. d/w Dr. Alvarado, these could certainly be added back once she is less lethargic. 2. monitor CBC, stop Neupogen. will give PRN. 3. d/c neutropenic precautions Attending Statement The exam, history, and the medical decision-making described in the above note were completed with the assistance of the mid-level provider. I reviewed and agree with the findings presented. I attest that I had a [id number] encounter with the patient on the same day, and personally performed and documented my assessment and findings in the medical record. More lethargic likely due to over sedation. Mild confusion but easily reoriented. +cough. WBC stable and not neutropenic, hold neupogen. Continue to monitor CBC. Problem Qualifiers (1) Congestive heart failure (CHF): Qualified Codes: I50.9 - Heart failure, unspecified Yokasta Andrew Jul 30, 2017 11:19 Lane Mayberry MD Jul 30, 2017 14:02
[2017-07-30] MEDS: WARFARIN SOD 6 MG TAB PO SCH (16:00)
[2017-07-30] MEDS: MONTELUKAST SODIUM 10 MG TAB PO SCH (22:16)
[2017-07-30] MEDS ORDERED: ACETAMINOPHEN 325 MG TAB PO ONE (23:15)
--- NOTE | 2017-07-30 23:47 | RADRPT ---
EXAM DATE/TIME: 07/30/2017 23:20 [facility] COMPARISON: CHEST SINGLE AP, July 29, 2017, 7:35. INDICATIONS : Congestion. MEDICAL HISTORY : Lymphoma. Diabetes mellitus type II. Hypertension. Cardiovascular disease Multiple sclerosis CHF Hypercholesterolemia GERD Asthma SURGICAL HISTORY : Hysterectomy. Pacemaker. AVR [id number] ENCOUNTER: Subsequent ACUITY: 3 weeks PAIN SCORE: 0/10 LOCATION: Bilateral chest FINDINGS: Portable AP view of the chest demonstrates stable mild enlargement of the cardiac silhouette with doris cification of the aorta in this patient post median sternotomy. Left chest wall cardiac pacing device is present. There is patchy airspace consolidation bilaterally, most severe in the right midlung zon e but also located within the upper lobes bilaterally. No pleural effusion or pneumothorax is identif ied. The bones and soft tissues demonstrate no acute finding. CONCLUSION: There is new patchy bilateral air space consolidation in the mid and upper lung zones. Chapito Richards MD on July 30, 2017 at 23:44 Board Certified Radiologist. This report was verified electronically.
[2017-07-31] VITALS (36 sets, daily range): BP systolic 91–122; BP diastolic 49–59; PULSE 59–62; RESP 15–33; TEMP 97.8–102; O2SAT 87–99
[2017-07-31 00:18] LABS: HEMATOCRIT 33.7 % (35.0-46.0); HEMOGLOBIN 11.6 GM/DL (11.6-15.3); MEAN CELL VOLUME 81.9 FL (80.0-100.0); MEAN CORPUSCULAR HEMOGLOBIN 28.1 PG (27.0-34.0); MEAN CORPUSCULAR HGB CONC 34.3 % (32.0-36.0); MEAN PLATELET VOLUME 9.8 FL (7.0-11.0); PLATELET COUNT 87 TH/MM3 (150-450); RED BLOOD COUNT 4.11 MIL/MM3 (4.00-5.30); WHITE BLOOD COUNT 2.2 TH/MM3 (4.0-11.0)
[2017-07-31 00:48] LABS: ALBUMIN 2.3 GM/DL (3.4-5.0); ALKALINE PHOSPHATASE 84 U/L (45-117); ALT (GPT) 14 U/L (10-53); AST (GOT) 16 U/L (15-37); BICARBONATE 28.9 MEQ/L (21.0-32.0); BLOOD UREA NITROGEN 43 MG/DL (7-18); CALCIUM 9.1 MG/DL (8.5-10.1); CHLORIDE 93 MEQ/L (98-107); GLOMERULAR FILTRATION RATE 32 ML/MIN (>89); GLUCOSE,RANDOM 245 MG/DL (74-106); SODIUM (NA) 133 MEQ/L (136-145); TOTAL BILIRUBIN ADULT 1.5 MG/DL (0.2-1.0); TOTAL PROTEIN 5.5 GM/DL (6.4-8.2)
[2017-07-31] MEDS ORDERED: Vancomycin Consult Pharmacy 1 EA OTHER SCH ×2 (01:45→22:45)
[2017-07-31] MEDS ORDERED: POTASSIUM CHLORIDE 20 MEQ CONTROLLED RELEASE TAB PO ONE (01:45)
[2017-07-31] MEDS ORDERED: VANCOMYCIN INJ 1,000 MG in SODIUM CHLOR 0.9% 250 ML INJ 250 ML IV ONE (01:45)
[2017-07-31] MEDS ORDERED: SODIUM CHLOR 0.9% 1000 ML INJ 1,000 ML IV SCH (02:00)
[2017-07-31] MEDS: POTASSIUM CHLOR 20 MEQ PREMIX 100 ML IV SCH ×2 (02:14→04:32)
[2017-07-31 02:21] LABS: BACTERIA, URINE MOD /hpf; BILIRUBIN, URINE NEG (NEG); BLOOD, URINE SMALL (NEG); GLUCOSE,URINE NEG (NEG); HYALINE CAST, URINE 9 /lpf (RARE); KETONE, URINE TRACE mg/dL (NEG); NITRITE,URINE NEG (NEG); PH, URINE 5.5 (5.0-8.5); SQUAMOUS EPITHELIAL CELL URINE 1 /hpf (0-5); URINE COLOR YELLOW (YELLW/STRAW); URINE LEUKOCYTE ESTERASE NEG (NEG)
[2017-07-31] MEDS ORDERED: VANCOMYCIN INJ 1,800 MG in SODIUM CHLORID 0.9% 500 ML INJ 500 ML IV ONE (02:30)
[2017-07-31 02:37] LABS: POLYS (SEG NEUTROPHILS) 50 % (16-70)
[2017-07-31 02:45] LABS: BANDS 3 % (0-6); LYMPHOCYTES 14 % (9-44); METAMYELOCYTES 6 % (0-1); MONOCYTES 12 % (0-8); MYELOCYTES 6 % (0-0); NEUTROPHIL # MANUAL DIFF 1.5 TH/MM3 (1.8-7.7); PROMYELOCYTES 1 % (0-0)
[2017-07-31 02:46] LABS: OVALOCYTES 1+ (NORMAL); TOXIC GRANULATION 2+ (NORMAL); TOXIC VACUOLATION PRESENT (NONE SEEN)
[2017-07-31] MEDS: AZTREONAM INJ 2,000 MG in SODIUM CHLORIDE 0.9% INJ 100 ML IV SCH ×3 (04:47→18:15)
[2017-07-31] MEDS: METOLAZONE 5 MG TAB PO SCH (08:54)
[2017-07-31] MEDS: ONDANSETRON ODT 4 MG TAB PO SCH ×2 (08:54→20:23)
[2017-07-31] MEDS: PANTOPRAZOLE SOD 20 MG DELAYED RELEASE TAB PO SCH ×2 (08:54→20:23)
[2017-07-31] MEDS: BUMETANIDE 1 MG TAB PO SCH (08:54)
[2017-07-31] MEDS: SPIRONOLACTONE 25 MG TAB PO SCH (08:55)
[2017-07-31] MEDS: NYSTATIN SUSP 500,000 U/5 ML CUP SWISH-SWAL SCH ×4 (08:55→20:23)
[2017-07-31] MEDS: CHOLECALCIFEROL (VIT D3) 1000 UNIT TAB PO SCH (08:55)
[2017-07-31] MEDS: buPROPion HCL 75 MG TAB PO SCH ×2 (08:55→20:24)
[2017-07-31] MEDS: ALLOPURINOL 300 MG TAB PO SCH (08:55)
[2017-07-31] MEDS: MAGNESIUM OXIDE 400 MG TAB PO SCH (08:55)
[2017-07-31] MEDS: ISOSORBIDE MONONITRATE 60 MG CR TAB (IMDUR) PO SCH (08:55)
[2017-07-31] MEDS: POTASSIUM CHLORIDE 20 MEQ CONTROLLED RELEASE TAB PO SCH (08:56)
[2017-07-31] MEDS: METOPROLOL TARTRATE 25 MG TAB PO SCH (08:56)
[2017-07-31] MEDS: SODIUM CHLORIDE 0.9% FLUSH 10 ML FLUSH IV FLUSH SCH ×2 (08:56→20:24)
[2017-07-31] MEDS ORDERED: POTASSIUM CHLORIDE 25 MEQ EFFERVESCENT TAB NG SCH (09:00)
[2017-07-31] MEDS ORDERED: RESP: ALBUTEROL 2.5 MG/IPRATROPIUM 0.5 MG NEB (SCH) NEB ONE (09:15)
--- NOTE | 2017-07-31 09:29 | HHI.PR ---
Subjective Remarks Patient tells me that her shortness breath of breath is getting worse. Per RN, patient having difficulty swallowing her pills. Patient was coughing when I saw her after taking pills crushed in applesauce. While in room, I noted that she had labored breathing and she is Mouth breathing. Looks tired and will mumble a few words. When asked if she has any chest pains, she states that she does have 9 out of 10 pain in the middle of her chest and across. No other radiation. Admits to nausea but no vomiting. She thinks her chest pain was partly due to coughing and started after her coughing spell. Pulse ox is 85 on 2L. Oxygen was increased to 5L and sat went up to 90. Objective Vitals Vital Signs Date Time Temp Pulse Resp B/P (MAP) Pulse Ox O2 Delivery O2 Flow Rate FiO2 07/31/17 04:00 101.6 60 20 117/57 (77) 91 07/31/17 04:00 61 07/31/17 01:12 100.2 60 20 92 07/31/17 00:00 59 07/30/17 23:24 100.2 60 20 165/69 (101) 92 07/30/17 23:00 101.2 60 20 90 07/30/17 20:00 Nasal Cannula 2.00 07/30/17 20:00 100.6 60 20 133/60 (84) 98 07/30/17 20:00 62 07/30/17 16:03 99.9 60 19 123/60 (81) 90 07/30/17 16:00 Room Air 07/30/17 16:00 58 07/30/17 12:03 100.1 57 19 149/64 (92) 93 07/30/17 12:00 Room Air 07/30/17 12:00 60 I/O 07/30/17 07/30/17 07/30/17 07/31/17 07/31/17 07/31/17 07:00 15:00 23:00 07:00 15:00 23:00 Intake Total 240 ml 260 ml Output Total 700 ml 1000 ml 1200 ml Balance -700 ml -760 ml -940 ml Intake Oral 240 ml 60 ml IV Total 200 ml Output Urine Total 700 ml 1000 ml 1200 ml # Bowel Movements 0 Result Diagram: 07/31/17 0000 07/31/17 0000 Imaging Last Impressions Chest X-Ray 07/30/17 0000 Signed Impressions: Service Date/Time: Sunday, July 30, 2017 23:20 - CONCLUSION: There is new patchy bilateral air space consolidation in the mid and upper lung zones. Chapito Richards MD Thoracic Spine CT 07/24/17 0000 Signed Impressions: Service Date/Time: July 19:38 - CONCLUSION: Degenerative changes throughout the thoracic spine. Multilevel disc bulges and foraminal narrowing as described above. No significant spinal stenosis. No acute compression fracture or subluxation. 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 Old lacunar infarct involving the left cerebellar hemisphere. Moderate periventricular and subcortical white matter small vessel ischemic changes bilaterally. No acute infarct, acute hemorrhage, mass effect or extra-axial fluid collections. Jaycob Camara MD Cervical Spine CT 07/24/17 0000 Signed Impressions: Service Date/Time: July 19:34 - CONCLUSION: 1. Mild spinal stenosis and moderate to severe bilateral foraminal narrowing at C5-6. 2. Mild left neuroforaminal narrowing at C3-4 and mild bilateral foraminal narrowing at C4-5. 3. No acute fracture or prevertebral soft tissue swelling. 1. Jaycob Camara MD Objective Remarks GENERAL: Chronically ill-appearing female, somnolent able to mumble a few words between breaths. mouth breathing, requesting a breathing treatment. SKIN: Extensive venous stasis changes bilateral lower extremities and pitting edema. CARDIOVASCULAR: Normal rate, regular rhythm. 2 out of 6 murmur over the right SB and apex. RESPIRATORY: coarse breath sounds, crackles at the bases, no wheezing. GASTROINTESTINAL: Abdomen is morbidly obese. Nontender. Some edema and probable ascites. MUSCULOSKELETAL: Bilateral lower extremities with 2+ edema. NEUROLOGICAL: Awake but somnolent. Pt is very weak, needs assistance w turning. Pain in her BL LE on palpation. A/P Problem List: (1) Anasarca ICD Code: R60.1 - Generalized edema Status: Acute (2) Severe tricuspid regurgitation ICD Code: I07.1 - Rheumatic tricuspid insufficiency Status: Acute (3) Permanent atrial fibrillation ICD Code: I48.2 - Chronic atrial fibrillation (4) Ascites ICD Code: R18.8 - Other ascites (5) History of aortic valve replacement ICD Code: Z95.2 - Presence of prosthetic heart valve Status: Chronic (6) CKD (chronic kidney disease) stage 3, GFR 30-59 ml/min ICD Code: N18.3 - Chronic kidney disease, stage 3 (moderate) (7) Follicular lymphoma grade I ICD Code: C82.00 - Follicular lymphoma grade I, unspecified site (8) Pancytopenia ICD Code: D61.818 - Other pancytopenia (9) H/O multiple sclerosis ICD Code: Z86.69 - Personal history of other diseases of the nervous system and sense organs Assessment and Plan Hypoxia/SOB w complains of chest pains/PNA/fever/neutropenia Pt this morning complains of worsening SOB, sats 85% on 2 L NC w labored breathing. I increased oxygen to 5L and sats went up to 90%. Stat ABG/chest x- ray/trop/CK-MB/EKG ordered. Pt noted to have WBC of 2.2 and having fevers w Tmax 101.6. Pt was started on aztreonam IV. ID was consulted. I discussed the case w Dr. Bravo, Food Preservation Scientist, and he has agreed to take the pt under his care. Chest x-ray showing bilateral pulm infiltrates. Will consult speech therapy, make NPO for now due to concerns for aspiration. Acapella q4hrs. Stat INR ordered. Anasarca Concern for valvulopathy/right heart failure as the cause. Patient has severe tricuspid regurgitation. Recent workup by GI and oncology. Cardiology also evaluated the pt -Treated with IV Lasix 40 mg twice daily, continue metolazone and spironolactone. Pt on bumex po 3mg per cardio however cannot take pills at this time. Will give one dose lasix IV 40mg x 1 and most likely needs to be back to 40mg IV q12hrs. status post paracentesis as OP and 5.7 L was taken out. Fluid was negative for malignant cells. - continue to Restrict fluid. Replace electrolytes as needed Severe tricuspid regurgitation Cardiology following Cardio thoracic surgeon also evaluated pt and has sent Records sent to [facility] for evaluation. Permanent atrial fibrillation Rate controlled. Continue Coumadin. INR 2.1 on admission. Goal is around 2.5. on Coumadin to 6 mg daily. STAT INR. Consult pharmacy Ascites It seems that she is reaccumulating fluid. Status post paracentesis 7 days ago. May need paracentesis. -continue to monitor. May need repeat paracentesis if she is not responding enough to IV diuretics. History of aortic valve replacement Anticoagulated as above CKD (chronic kidney disease) stage 3, GFR 30-59 ml/min Monitor closely with diuretics Follicular lymphoma grade I hem/onc following (8) Pancytopenia hem/onc following WBC 2.2 and pt w fevers of 101.6. On aztreonam. H/O multiple sclerosis poss exacerbation at this time neurology evaluated the pt. CT spine and brain reviewed Received solumedrol 125 mg q 6 hr iv per neuro recommendations. Completed course pt/ot following stopped her Zanaflex and Baclofen as noted lethargic Also with depression /anxiety. psych evaluated the pt, appreciate recommendations Wellbutrin 75mg BID Will begin Zoloft 25mg PO daily Started on 0.5mg Clonidine BID as needed for breakthrough anxiety Discharge Planning Transfer to [facility] and to video journalist service for close monitoring and management. Appreciate assistance Rachel Alvarez MD Jul 31, 2017 09:29
[2017-07-31] MEDS ORDERED: FUROSEMIDE 40 MG/4 ML VIAL IV PUSH ONE (09:30)
--- NOTE | 2017-07-31 09:38 | RADRPT ---
EXAM DATE/TIME: 07/31/2017 09:21 [facility] COMPARISON: CHEST SINGLE AP, July 30, 2017, 23:20. INDICATIONS : Infiltrate. Wet cough. MEDICAL HISTORY : Lymphoma. Diabetes mellitus type II. Hypertension. Cardiovascular disease Multiple sclerosis CHF Hypercholesterolemia GERD Asthma SURGICAL HISTORY : Hysterectomy. Pacemaker. Infusaport. ENCOUNTER: Subsequent ACUITY: 3 weeks PAIN SCORE: Non-responsive. LOCATION: Bilateral chest FINDINGS: There continue to be stable scattered infiltrates throughout both lung cheung. These are not signific antly changed compared to the prior study. The heart size is enlarged but stable. There is a pacemake r overlying the left chest. There is a right-sided [id number] in place. There is no evidence of pn eumothorax. There is evidence of previous cardiothoracic surgery. No significant change compared to t he prior study. CONCLUSION: Stable bilateral patchy pulmonary infiltrates without significant change compared to the prior exam. Naga Felder MD on July 31, 2017 at 9:35 Board Certified Radiologist. This report was verified electronically.
[2017-07-31] MEDS ORDERED: POTASSIUM CHLOR 20 MEQ PREMIX 100 ML IV ONE (10:00)
[2017-07-31] MEDS ORDERED: RESP: ALBUTEROL 2.5 MG/IPRATROPIUM 0.5 MG NEB (PRN) NEB (10:30)
[2017-07-31] MEDS ORDERED: MAGNESIUM SULFATE INJ 2 GM in SODIUM CHLORIDE 0.9% INJ 96 ML IV PRN (11:00)
[2017-07-31] MEDS ORDERED: MAGNESIUM SULFATE INJ 4 GM in SODIUM CHLORIDE 0.9% INJ 92 ML IV PRN (11:00)
[2017-07-31] MEDS ORDERED: DEXTROSE 50% IN WATER 50 ML VIAL(D50) IV PUSH PRN (11:00)
[2017-07-31] MEDS ORDERED: SODIUM PHOSPHATE INJ 30 MMOL in SODIUM CHLOR 0.9% 250 ML INJ 240 ML IV PRN (11:00)
[2017-07-31] MEDS ORDERED: GLUCAGON 1 MG/ML VIAL OTHER PRN (11:00)
[2017-07-31] MEDS: INSULIN NovoLIN REGULAR SUPPLEMENTAL SCALE SQ SCH ×3 (11:00→23:00)
[2017-07-31] MEDS ORDERED: MAGNESIUM OXIDE 400 MG TAB PO PRN (11:00)
[2017-07-31 11:05] LABS: HEMATOCRIT 32.4 % (35.0-46.0); HEMOGLOBIN 11.1 GM/DL (11.6-15.3); MEAN CELL VOLUME 81.6 FL (80.0-100.0); MEAN CORPUSCULAR HEMOGLOBIN 27.9 PG (27.0-34.0); MEAN CORPUSCULAR HGB CONC 34.2 % (32.0-36.0); PLATELET COUNT 78 TH/MM3 (150-450); RED BLOOD COUNT 3.98 MIL/MM3 (4.00-5.30); RED CELL DISTRIBUTION WIDTH 18.4 % (11.6-17.2); WHITE BLOOD COUNT 1.6 TH/MM3 (4.0-11.0)
[2017-07-31 11:15] LABS: INTERNATIONAL NORMALIZED RATIO 12.2 RATIO
[2017-07-31 11:20] LABS: BICARBONATE 28.2 MEQ/L (21.0-32.0); CALCIUM 8.8 MG/DL (8.5-10.1); CREATININE 2.04 MG/DL (0.50-1.00); MAGNESIUM 2.5 MG/DL (1.5-2.5)
[2017-07-31 11:21] LABS: TROPONIN I 0.08 NG/ML (0.02-0.05)
[2017-07-31 11:23] LABS: PHOSPHORUS 1.8 MG/DL (2.5-4.9)
--- NOTE | 2017-07-31 11:48 | MB ---
cc: Gerardo Robledo MD DATE OF CONSULT: REASON FOR CONSULTATION: Critical care management. Patient is 67-year-old female with past medical history of bronchial asthma, multiple sclerosis, chronic atrial fibrillation, St. Bao aortic valve replacement in 1989, on Coumadin, severe tricuspid regurgitation, hypertension, and follicular lymphoma. She was admitted to [facility] under hospitalist service on 07/23 for worsening edema, shortness of breath, and fluid overload. Patient had a chest x-ray on admission which showed no acute disease; however, she had subsequent chest x-rays since then, and her last chest x-ray from this morning showed bilateral patchy pulmonary infiltrates. 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 No evidence of any acute infarct, hemorrhage or mass effect. She had an echocardiogram on 07/15, which showed ejection fraction of 45% to 50% and severe tricuspid regurgitation. During her hospital course, she was seen by multiple consultants, including hematology service, neurology, cardiology. Patient was transferred to [place] for worsening respiratory status, and critical care medicine was consulted for critical care management. She had an ABG done on 4 L oxygen this morning, which showed a pH of 7.48, CO2 37, PaO2 64, bicarb 27, and saturation of 91%. Her laboratory data from today showed worsening renal function with creatinine of 1.60 from 1.23 on arrival and hypokalemia with potassium level of 2.9. Her lactic acid level measured at 2.2. She was given Lasix 40 mg IV push earlier today and was started on broad-spectrum antibiotics, aztreonam and vancomycin. In addition, infectious disease service was consulted by the primary team. Patient spiked a fever with temperature of 101.6 at 4:00 this morning. Most of the history was obtained from reviewing the medical records, as patient is a poor historian. She is on diuretics for fluid overload. PAST MEDICAL HISTORY: Significant for follicular lymphoma status post chemo in 03/2017, CHF, severe tricuspid regurgitation, chronic atrial fibrillation, hypertension, multiple sclerosis, bronchial asthma, CVA. PAST SURGICAL HISTORY: Previous St. Bao aortic valve replacement, previous pacemaker placement, previous appendectomy, hysterectomy, cholecystectomy and left oophorectomy. SOCIAL HISTORY: Nonsmoker, nondrinker. FAMILY HISTORY: Reviewed and noncontributory to present illness. ALLERGIES: MULTIPLE, WHICH INCLUDE AMPICILLIN, ASPIRIN, DOXYCYCLINE, ERYTHROMYCIN, IODINE, MORPHINE, PENICILLIN, POTASSIUM IODINE, KEFLEX, FLAGYL, NAPROXEN, OXYCODONE. CURRENT MEDICATIONS: Include albuterol, aztreonam, Bumex, Imdur, Zaroxolyn, Lopressor, Singulair, Protonix, Aldactone, Coumadin. REVIEW OF SYSTEMS: As per HPI. PHYSICAL EXAMINATION: A 67-year-old female lying in bed in mild respiratory distress. VITAL SIGNS: Temperature 101.6, pulse of 60, respiratory rate 22, blood pressure 106/53, saturation 90% to 92%. HEENT: Atraumatic, normocephalic. Pupils equal, round, reactive to light and accommodation. Extraocular muscles intact. Conjunctivae pink. Nonicteric sclerae. Oral mucosa within normal. NECK: Supple. No JVD, adenopathy or thyromegaly. Trachea in the midline. CARDIOVASCULAR: Irregularly irregular. Normal S1, S2. II/IV systolic ejection murmur at the base. PULMONARY: Bilateral equal air entry with coarse breath sounds and rhonchi. ABDOMEN: Soft, nontender, no distention, positive bowel sounds. EXTREMITIES: No cyanosis, clubbing or edema. NEUROLOGIC: No focal sensory deficit. LABORATORY DATA: Sodium 133, potassium 2.9, chloride 93, BUN 43, creatinine 1.60, glucose 245. Lactic acid 2.2. WBC 2.2, hemoglobin 11.6, hematocrit 33, platelet count 87. RADIOGRAPHIC STUDIES: Chest x-ray from this morning showed bilateral patchy pulmonary infiltrates. IMPRESSION: 1. Acute hypoxemic respiratory failure. 2. Multilobar pneumonia. 3. Pancytopenia. 4. Acute kidney injury. 5. Hypokalemia. 6. Chronic atrial fibrillation. 7. Congestive heart failure. 8. Previous St. Bao aortic valve replacement and pacemaker replacement. 9. Hypertension. 10. History of multiple sclerosis. 11. History of bronchial asthma. 12. History of follicular lymphoma status post chemotherapy. 13. Pancytopenia. RECOMMENDATIONS: 1. Monitor neuro status closely and avoid any sedatives. CT scan of the brain was obtained on 07/24, showed old infarcts involving right frontoparietal region and old lacunar infarct involving the left cerebellar hemisphere. Dr. Lorenzana from neurology service is following for her multiple sclerosis. She was treated with high-dose steroids, Solu-Medrol 125 mg q.6 from 07/25 to 07/30. 2. Continue with oxygen and maintain saturation above 92%. 3. Bronchodilators in the form of DuoNeb q.4 plus q.2 p.r.n. for shortness of breath. ABG reviewed. If there is any worsening in respiratory status, we will proceed with intubation and mechanical ventilation. 4. Monitor heart rates and blood pressure closely and maintain MAP greater than 65 mmHg. Echocardiogram from 07/15 showed severe tricuspid regurgitation and EF of 45% to 50%. Dr. Devine from cardiology is following. Continue with cardiac meds and diuretics. She is currently on Imdur 60 mg daily, Bumex 3 mg daily, Zaroxolyn 5 mg daily, Lopressor, Pravachol and Aldactone 25 mg b.i.d. 5. Monitor renal function, I's and O's, and avoid nephrotoxins. Electrolyte replacement per protocol. 6. Keep n.p.o. for now until her respiratory status improves and continue with Protonix for GI prophylaxis. 7. Continue with broad-spectrum antibiotics. She was started on aztreonam. In addition, patient was given 1 dose of vancomycin. Monitor for signs of infection, which include fever and WBC. Followup on blood cultures and urine culture. In addition, will obtain a sputum culture with Gram stain. Check Strep pneumoniae, Legionella urinary antigen and send nasal washing to rule out influenza. Infectious disease service was consulted by the primary team. 8. Monitor CBC. Hematology is following for her pancytopenia. She is on Neupogen 300 mcg subcutaneous daily. Monitor coags patient has been on Coumadin and her last INR is from Jul 23 which was [address] on sliding scale insulin with Accu-Chek for glycemic control. 10. TSH level measured at 2.83. 11. GI prophylaxis with Protonix and DVT prophylaxis with SCDs. Chemical anticoagulation prophylaxis contraindicated in the setting of thrombocytopenia with a platelet count less than 100. 12. Right-sided infusaport in place. 13. Further recommendations will be based on hospital course. MD LIDIA Zaragoza/RAUL , 10:56 AM , 11:47 AM KALEN
[2017-07-31] MEDS: RESP: ALBUTEROL 2.5 MG/IPRATROPIUM 0.5 MG NEB (SCH) NEB ×4 (12:17→23:30)
[2017-07-31 12:26] LABS: BANDS 2 % (0-6); BLASTS 4 % (0-0); LYMPHOCYTES 10 % (9-44); METAMYELOCYTES 22 % (0-1); MONOCYTES 16 % (0-8); MYELOCYTES 2 % (0-0); NEUTROPHIL # MANUAL DIFF 1.1 TH/MM3 (1.8-7.7); OVALOCYTES 1+ (NORMAL); POLYS (SEG NEUTROPHILS) 40 % (16-70); PROMYELOCYTES 4 % (0-0); TOXIC GRANULATION 2+ (NORMAL)
[2017-07-31] MEDS ORDERED: ETOMIDATE 40 MG/20 ML VIAL ONE (12:32)
[2017-07-31] MEDS: fentaNYL DRIP 250 ML IV PRN (13:08)
[2017-07-31] MEDS ORDERED: PROPOFOL 500 MG/50 ML INJ 50 ML ONE (13:36)
--- NOTE | 2017-07-31 13:39 | PD.ONC.PN ---
Subjective Subjective Remarks Tmax 101.6 overnight. Patient went into respiratory distress this AM. JUst prior to my exam she underwent RSI. She is intubated, sedated, resting in bed. Objective Data Date Time Temp Pulse Resp B/P (MAP) Pulse Ox O2 Delivery O2 Flow Rate FiO2 07/31/17 13:18 100.7 60 27 109/54 90 07/31/17 12:55 97 100 07/31/17 12:17 94 Non-Rebreather 15.00 07/31/17 09:00 97.8 60 22 106/53 (70) 91 07/31/17 04:00 101.6 60 20 117/57 (77) 91 07/31/17 04:00 61 07/31/17 01:12 100.2 60 20 92 07/31/17 00:00 59 07/30/17 23:24 100.2 60 20 165/69 (101) 92 07/30/17 23:00 101.2 60 20 90 07/30/17 20:00 Nasal Cannula 2.00 07/30/17 20:00 100.6 60 20 133/60 (84) 98 07/30/17 20:00 62 07/30/17 16:03 99.9 60 19 123/60 (81) 90 07/30/17 16:00 Room Air 07/30/17 16:00 58 07/31/17 07/31/17 07/31/17 07:00 15:00 23:00 Intake Total 260 ml 10 ml Output Total 1200 ml Balance -940 ml 10 ml Result Diagram: 07/31/17 1035 07/31/17 1035 Laboratory Results Laboratory Tests Test 07/31/17 00:00 07/31/17 01:50 07/31/17 02:53 07/31/17 09:15 White Blood Count 2.2 TH/MM3 Red Blood Count 4.11 MIL/MM3 Hemoglobin 11.6 GM/DL Hematocrit 33.7 % Mean Corpuscular Volume 81.9 FL Mean Corpuscular Hemoglobin 28.1 PG Mean Corpuscular Hemoglobin Concent 34.3 % Red Cell Distribution Width 18.0 % Platelet Count 87 TH/MM3 Mean Platelet Volume 9.8 FL CBC Comment AUTO DIFF Differential Total Cells Counted 100 Neutrophils % (Manual) 50 % Band Neutrophils % 3 % Lymphocytes % 14 % Monocytes % 12 % Other Cells % 8 % Neutrophils # (Manual) 1.5 TH/MM3 Metamyelocytes 6 % Myelocytes 6 % Promyelocytes 1 % Differential Comment FINAL DIFF MANUAL Toxic Granulation 2+ Toxic Vacuolation PRESENT Platelet Estimate LOW Platelet Morphology Comment NORMAL Ovalocytes 1+ Blood Urea Nitrogen 43 MG/DL Creatinine 1.60 MG/DL Random Glucose 245 MG/DL Total Protein 5.5 GM/DL Albumin 2.3 GM/DL Calcium Level 9.1 MG/DL Alkaline Phosphatase 84 U/L Aspartate Amino Transf (AST/SGOT) 16 U/L Alanine Aminotransferase (ALT/SGPT) 14 U/L Total Bilirubin 1.5 MG/DL Sodium Level 133 MEQ/L Potassium Level 2.9 MEQ/L Chloride Level 93 MEQ/L Carbon Dioxide Level 28.9 MEQ/L Anion Gap 11 MEQ/L Estimat Glomerular Filtration Rate 32 ML/MIN Lactic Acid Level 2.4 mmol/L 2.2 mmol/L Urine Color YELLOW Urine Turbidity HAZY Urine pH 5.5 Urine Specific [place] 1.011 Urine Protein 100 mg/dL Urine Glucose (UA) NEG mg/dL Urine Ketones TRACE mg/dL Urine Occult Blood SMALL Urine Nitrite NEG Urine Bilirubin NEG Urine Urobilinogen LESS THAN 2.0 MG/DL Urine Leukocyte Esterase NEG Urine RBC 2 /hpf Urine WBC 2 /hpf Urine Squamous Epithelial Cells 1 /hpf Urine Bacteria MOD /hpf Urine Hyaline Casts 9 /lpf Microscopic Urinalysis Comment CULTURE INDICATED Blood Gas Puncture Site RT RADIAL Blood Gas Patient Temperature 98.6 Blood Gas HCO3 27 mmol/L Blood Gas Base Excess 3.9 mmol/L Blood Gas Oxygen Saturation 91 % Arterial Blood pH 7.48 Arterial Blood Partial Pressure CO2 37 mmHg Arterial Blood Partial Pressure O2 64 mmHg Arterial Blood Oxygen Content 14.6 Vol % Arterial Blood Carboxyhemoglobin 1.8 % Arterial Blood Methemoglobin 0.9 % Blood Gas Hemoglobin 11.4 G/DL Oxygen Delivery Device NASAL CANNULA Blood Gas Liter Flow 4 L/M Test 07/31/17 10:35 White Blood Count 1.6 TH/MM3 Red Blood Count 3.98 MIL/MM3 Hemoglobin 11.1 GM/DL Hematocrit 32.4 % Mean Corpuscular Volume 81.6 FL Mean Corpuscular Hemoglobin 27.9 PG Mean Corpuscular Hemoglobin Concent 34.2 % Red Cell Distribution Width 18.4 % Platelet Count 78 TH/MM3 Mean Platelet Volume 10.0 FL CBC Comment AUTO DIFF Differential Total Cells Counted 50 Neutrophils % (Manual) 40 % Band Neutrophils % 2 % Lymphocytes % 10 % Monocytes % 16 % Neutrophils # (Manual) 1.1 TH/MM3 Metamyelocytes 22 % Myelocytes 2 % Promyelocytes 4 % Differential Comment FINAL DIFF MANUAL Blastocytes 4 % Toxic Granulation 2+ Platelet Estimate LOW Platelet Morphology Comment NORMAL Ovalocytes 1+ Prothrombin Time 121.0 SEC Prothromb Time International Ratio 12.2 RATIO Blood Urea Nitrogen 53 MG/DL Creatinine 2.04 MG/DL Random Glucose 209 MG/DL Calcium Level 8.8 MG/DL Phosphorus Level 1.8 MG/DL Magnesium Level 2.5 MG/DL Sodium Level 134 MEQ/L Potassium Level 3.3 MEQ/L Chloride Level 93 MEQ/L Carbon Dioxide Level 28.2 MEQ/L Anion Gap 13 MEQ/L Estimat Glomerular Filtration Rate 24 ML/MIN Lactic Acid Level 3.5 mmol/L Total Creatine Kinase 18 U/L Troponin I 0.08 NG/ML Culture Results Microbiology Date/Time Source Procedure Growth Status 07/31/17 00:05 Blood Peripheral Aerobic Blood Culture Pending Received 07/31/17 00:05 Blood Peripheral Anaerobic Blood Culture Pending Received 07/31/17 00:00 Blood Peripheral Aerobic Blood Culture Pending Received 07/31/17 00:00 Blood Peripheral Anaerobic Blood Culture Pending Received 07/31/17 12:21 Nasal Washing Influenza Types A,B Antigen (JENNIE) - Final NEGATIVE FOR FLU A AND B ANTIGEN.... Complete 07/31/17 10:50 Urine Catheterized Urine Legionella Antigen Pending Received 07/31/17 10:50 Urine Catheterized Urine Streptococcus pneumoniae Antigen (M Pending Received 07/31/17 01:50 Urine Clean Catch Urine Culture Pending Received Imaging Studies Last 24 hours Impressions Chest X-Ray 07/31/17 0000 Signed Impressions: Service Date/Time: July 09:21 - CONCLUSION: Stable bilateral patchy pulmonary infiltrates without significant change compared to the prior exam. Naga Felder MD Administered Medications Medications (Trade) Dose Ordered Sig/Love Route PRN Reason Start Time Stop Time Status Last Admin Dose Admin Sodium Chloride (NS Flush) 2 ml BID IV FLUSH 07/23/17 21:00 07/31/17 08:56 Sodium Chloride (NS Flush) 2 ml UNSCH PRN IV FLUSH FLUSH AFTER USING IV ACCESS 07/23/17 20:30 07/30/17 01:21 Allopurinol (Zyloprim) 300 mg DAILY PO 07/24/17 09:00 07/31/17 08:55 Cholecalciferol (Vitamin D3) 2,000 units DAILY PO 07/24/17 09:00 07/31/17 08:55 Acetaminophen/ Hydrocodone Bitart ([place] 5-325 Mg) 1 tab Q6H PRN PO PAIN 07/23/17 20:30 07/28/17 21:53 Metolazone (Zaroxolyn) 5 mg DAILY PO 07/24/17 09:00 07/31/17 08:54 Montelukast Sodium (Singulair) 10 mg HS PO 07/23/17 21:00 07/30/17 22:16 Pantoprazole Sodium (Protonix) 20 mg BID PO 07/23/17 23:00 07/31/17 08:54 Ondansetron HCl (Zofran Odt) 4 mg BID PO 07/23/17 21:00 07/31/17 08:54 Warfarin Sodium (Coumadin) 6 mg DAILY@1600 PO 07/24/17 16:00 Future Hold 07/29/17 16:53 Albuterol/ Ipratropium (Duoneb Neb) 1 ampule Q4HR NEB PRN NEB sob 07/24/17 01:30 07/28/17 14:57 Isosorbide Mononitrate (Imdur) 60 mg DAILY@0700 PO 07/26/17 07:00 07/31/17 08:55 Bupropion HCl (Wellbutrin) 75 mg Q12HR PO 07/27/17 21:00 07/31/17 08:55 Nystatin (Mycostatin Liq) 5 ml QID SWISH-SWAL 07/27/17 21:00 07/31/17 08:55 Bumetanide (Bumetanide) 3 mg DAILY PO 07/29/17 09:00 Future Hold 07/31/17 08:54 Aztreonam 2000 mg/ Sodium Chloride 100 ml @ 200 mls/hr Q8H IV 07/31/17 02:00 07/31/17 04:47 Albuterol/ Ipratropium (Duoneb Neb) 1 ampule Q4HR NEB NEB 3/8/18 12:00 07/31/17 12:17 Fentanyl Citrate 250 ml @ 5 mls/hr TITRATE PRN IV SEDATION 07/31/17 13:00 07/31/17 13:08 Objective Remarks GENERAL: Intubated, sedated female, lying supine in bed. SKIN: Warm and dry. HEAD: Normocephalic. EYES: No injection or drainage. NECK: Supple, trachea midline. CARDIOVASCULAR: +S1/S2 RESPIRATORY: anterior cheung with coarse rhonchi. GASTROINTESTINAL: Abdomen distended. EXTREMITIES: No cyanosis. NEUROLOGICAL: intubated, sedated. Assessment/Plan Problem List: (1) Pancytopenia ICD Codes: D61.818 - Other pancytopenia Plan: --on Neupogen PRN --due to underlying liver disease/cirrhosis and splenomegaly. --hemoglobin and platelet count are relatively stable. (2) Follicular lymphoma grade I ICD Codes: C82.00 - Follicular lymphoma grade I, unspecified site Plan: --Follicular lymphoma grade 1. --completed 4 cycles Rituxan and bendamustine in March 2017-->PET scan showed a good response and resolution of the hypermetabolic uptake in the abdominal lymph node. ------started on maintenance Rituxan. last dose was early June. no evidence of recurrent disease. (3) Congestive heart failure (CHF) ICD Codes: I50.9 - Heart failure, unspecified Status: Acute Plan: --was possible transfer to [facility], evaluated by Cardiothoracic Surgery for possible surgical repair, now intubated in [facility], critically ill. -- has a history of aortic valve replacement. --was recently found to have severe tricuspid valve regurgitation. Assessment 67y/o female with lymphoma and pancytopenia. h/o Follicular lymphoma grade 1. Diabetes mellitus. Transient ischemic attack. Chronic atrial fibrillation. Valvular disease. Hypertension. Gout. Asthma. Nephrolithiasis. Multiple sclerosis. Questionable cirrhosis with splenomegaly.Pancytopenia. HPI (brought forward for continuity of care): history of grade 1 follicular lymphoma, completed chemotherapy in March 2017, readmitted to hospital with increased shortness of breath and edema. was just discharged from the hospital earlier this week for symptomatic bradycardia, dizziness, hypertension. During the hospital stay, she was also found to have anasarca. She had significant ascites and had GI workup including paracentesis, which did not show any malignancy. She said when she went home, she felt well for a day.By Friday afternoon, she had increased lower extremity weakness. She also has a shuffling gait. She said that she swelled up, and the diuretic does not seem to work. She came back to the hospital. She has been having chest pain. She has PND and orthopnea. Plan 1. resume Neupogen today 2. monitor CBC Attending Statement The exam, history, and the medical decision-making described in the above note were completed with the assistance of the mid-level provider. I reviewed and agree with the findings presented. I attest that I had a [id number] encounter with the patient on the same day, and personally performed and documented my assessment and findings in the medical record. (late entry, saw pt in am). She was lethargic and has gurgling cough. Has fever this am. CXR showed possible pneumonia. Started on Abx. WBC tranded down again likely due to infection. Restart neupogen. Monitor CBC. Problem Qualifiers (1) Congestive heart failure (CHF): Qualified Codes: I50.9 - Heart failure, unspecified Yokasta Andrew Jul 31, 2017 13:39 Lane Mayberry MD Jul 31, 2017 14:37
--- NOTE | 2017-07-31 13:43 | RADRPT ---
EXAM DATE/TIME: 07/31/2017 13:07 [facility] COMPARISON: CHEST SINGLE AP, July 31, 2017, 9:21. INDICATIONS : Post intubation. MEDICAL HISTORY : Lymphoma. Diabetes mellitus type II. Hypertension. Cardiovascular disease Multiple sclerosis CHF Hypercholesterolemia GERD Asthma SURGICAL HISTORY : Hysterectomy. Pacemaker. Infusaport. ENCOUNTER: Subsequent ACUITY: 1 day PAIN SCORE: Non-responsive. LOCATION: Bilateral chest FINDINGS: A single view of the chest demonstrates multiple masslike densities in both hemithoraces. Probable ri ght-sided effusion with blunting of costophrenic angle. Heart size is prominent. Right-sided Infuse-a -Port catheter is unchanged in position. Left subclavian bipolar pacer is radiographically intact. Interval placement of an endotracheal tube with the tip at the clavicular heads, well above the [place] a. Nasogastric tube enters the stomach and extends off the inferior aspect of the image. CONCLUSION: 1. Bilateral masslike airspace disease, right greater than left. Lesion on the left actually appears slightly more prominent when compared to the examination earlier today suggesting an infectious etiol ogy. 2. Interval placement of an endotracheal and nasogastric tubes as above. Both appear to be appropriat isaura positioned. Stable position of the right-sided [id number] and left subclavian bipolar pacer 3. Heart size remains prominent. Probable right-sided effusion. Salomón Obrien MD on July 31, 2017 at 13:38 Board Certified Radiologist. This report was verified electronically.
[2017-07-31] MEDS ORDERED: PROPOFOL 1000 MG/100 ML INJ 100 ML IV PRN (13:45)
[2017-07-31] MEDS ORDERED: FILGRASTIM 300 MCG/ML VIAL SQ SCH (14:00)
[2017-07-31] MEDS: metroNIDAZOLE 500 MG INJ 100 ML IV SCH ×2 (14:00→20:23)
--- NOTE | 2017-07-31 14:09 | PD.CONS ---
History of Present Illness Service Infectious disease Consult Requested By Dr Alessandra Alvarado Reason for Consult Evaluate patient with fever, and new infiltrates, has multiple antibiotic allergies Primary Care Physician Non-Staff Diagnoses: History of Present Illness Patient seen and examined. Records reviewed. Patient is a 67-year-old female, patient is to the hospital for evaluation of worsening shortness of breath, and worsening edema. Patient has prior history of aortic valve replacement and severe tricuspid regurgitation, CHF and has had problem with lower extremity edema as well as ascites. She apparently had underwent paracenteses with some improvement, however on the day of admission she had developed increasing edema, and worsening shortness of breath. She presented to the hospital, and admitted for further evaluation and treatment. Patient's shortness of breath has stabilized. She had some diuresis. Cardiothoracic surgery evaluated her, and she was being referred to [facility] for surgical repair of her open TR. Over the last 2 days she has developed increasing shortness of breath, and her chest x-ray yesterday is showing some new bilateral infiltrates. She also started having fevers yesterday. This morning her respiratory status deteriorated, so she was transferred to the intensive care unit and intubated. Infectious disease consultation has been requested to evaluate the patient with new bilateral infiltrates and fever. Review of Systems ROS Limitations: Clinical Condition, Intubated Constitutional: COMPLAINS OF: Fever Respiratory: COMPLAINS OF: Shortness of breath Past Family Social History Allergies: Coded Allergies: ampicillin (Verified Allergy, Severe, Hives, 07/23/17) aspirin (Verified Allergy, Severe, Hives, 07/23/17) cashew nut (Verified Allergy, Severe, Anaphylaxis, 07/23/17) ciprofloxacin (Verified Allergy, Severe, Hives, 07/23/17) doxycycline (Verified Allergy, Severe, Anaphylaxis, 07/23/17) erythromycin base (Verified Allergy, Severe, Anaphylaxis, 07/23/17) iodine (Verified Allergy, Severe, Shortness of Breath, 07/23/17) minocycline (Verified Allergy, Severe, Anaphylaxis, 07/23/17) morphine (Verified Allergy, Severe, Anaphylaxis, 07/23/17) penicillin G (Verified Allergy, Severe, Hives, 07/23/17) potassium iodide (Verified Allergy, Severe, Shortness of Breath, 07/23/17) povidone-iodine (Verified Allergy, Severe, Shortness of Breath, 07/23/17) sodium iodide (Verified Allergy, Severe, Shortness of Breath, 07/23/17) sodium iodide (Verified Allergy, Severe, Shortness of Breath, 07/23/17) tigecycline (Verified Allergy, Severe, Anaphylaxis, 07/23/17) bee venom protein (honey bee) (Verified Allergy, Unknown, Shortness of Breath, 07/23/17) cephalexin (Verified Allergy, Unknown, Hives, 07/23/17) codeine (Verified Allergy, Unknown, Hives, 07/23/17) diclofenac (Verified Allergy, Unknown, Hives, 07/23/17) etodolac (Verified Allergy, Unknown, Hives, 07/23/17) flurbiprofen (Verified Allergy, Unknown, Hives, 07/23/17) gentamicin (Verified Allergy, Unknown, Hives, 07/23/17) indomethacin (Verified Allergy, Unknown, Hives, 07/23/17) ketoprofen (Verified Allergy, Unknown, Hives, 07/23/17) ketorolac (Verified Allergy, Unknown, Hives, 07/23/17) metronidazole (Verified Allergy, Unknown, Hives, 07/23/17) naproxen (Verified Allergy, Unknown, Hives, 07/23/17) oxaprozin (Verified Allergy, Unknown, Hives, 07/23/17) oxycodone (Verified Allergy, Unknown, Hives, 07/23/17) propoxyphene (Verified Allergy, Unknown, Hives, 07/23/17) Uncoded Allergies: KEFLIN (Allergy, Severe, Hives, 12/16/16) Past Medical History Bradycardia status post pacemaker placement Non Hodgkin's lymphoma Liver cirrhosis Rheumatic heart disease Atrial fibrillation CHF History of CVA Kidney stone Gout Asthma Multiple sclerosis Chronic pancytopenia Past Surgical History Aortic Valve Replacement Pacemaker Appendectomy Left Oophorectomy, Hysterectomy Cholecystectomy Active Ordered Medications Current Medications Medications (Trade) Dose Ordered Sig/Love Route Start Time Stop Time Status Last Admin (NS Flush) 2 ml BID IV FLUSH 07/23/17 21:00 07/31/17 08:56 (NS Flush) 2 ml UNSCH PRN IV FLUSH 07/23/17 20:30 07/30/17 01:21 (Zyloprim) 300 mg DAILY PO 07/24/17 09:00 07/31/17 08:55 (Vitamin D3) 2,000 units DAILY PO 07/24/17 09:00 07/31/17 08:55 ([place] 5-325 Mg) 1 tab Q6H PRN PO 07/23/17 20:30 07/28/17 21:53 (Pravachol) 10 mg 2XWEEK PO 07/24/17 09:00 (Zaroxolyn) 5 mg DAILY PO 07/24/17 09:00 07/31/17 08:54 (Singulair) 10 mg HS PO 07/23/17 21:00 07/30/17 22:16 (Protonix) 20 mg BID PO 07/23/17 23:00 07/31/17 08:54 (Zofran Odt) 4 mg BID PO 07/23/17 21:00 07/31/17 08:54 (Coumadin) 6 mg DAILY@1600 PO 07/24/17 16:00 Future Hold 07/29/17 16:53 (Duoneb Neb) 1 ampule Q4HR NEB PRN NEB 07/24/17 01:30 07/28/17 14:57 (Imdur) 60 mg DAILY@0700 PO 07/26/17 07:00 07/31/17 08:55 (Dulcolax Supp) 10 mg DAILY PRN RECTAL 07/27/17 01:30 (Wellbutrin) 75 mg Q12HR PO 07/27/17 21:00 07/31/17 08:55 (Mycostatin Liq) 5 ml QID SWISH-SWAL 07/27/17 21:00 07/31/17 08:55 (Bumetanide) 3 mg DAILY PO 07/29/17 09:00 Future Hold 07/31/17 08:54 Aztreonam 2000 mg/ Sodium Chloride 100 ml @ 200 mls/hr Q8H IV 07/31/17 02:00 07/31/17 04:47 Pharmacy Profile Note 0 ml @ 0 mls/hr UNSCH OTHER 07/31/17 01:45 (Neupogen Inj) 300 mcg DAILY@14 SQ 07/31/17 14:00 Pharmacy Profile Note 0 ml @ 0 mls/hr UNSCH OTHER 07/31/17 10:00 (Duoneb Neb) 1 ampule Q2HR NEB PRN NEB 07/31/17 10:30 (Duoneb Neb) 1 ampule Q4HR NEB NEB 07/31/17 12:00 07/31/17 12:17 (D50w (Vial) Inj) 50 ml UNSCH PRN IV PUSH 07/31/17 11:00 (Glucagon Inj) 1 mg UNSCH PRN OTHER 07/31/17 11:00 (NovoLIN R SUPPLEMENTAL SCALE) 1 Q6H SQ 07/31/17 11:00 Sodium Chloride 1,000 ml @ 42 mls/hr [id number] IV 07/31/17 12:15 (Peridex 0.12% Liq) 15 ml BID@08,20 MT 07/31/17 20:00 Fentanyl Citrate 250 ml @ 5 mls/hr TITRATE PRN IV 07/31/17 13:00 07/31/17 13:08 Propofol 100 ml @ 0 mls/hr TITRATE PRN IV 07/31/17 13:45 UNV Family History Noncontributory Social History Denies smoking Denies alcohol abuse Denies illicit drug Physical Exam Vital Signs Vital Signs Date Time Temp Pulse Resp B/P (MAP) Pulse Ox O2 Delivery O2 Flow Rate FiO2 07/31/17 13:18 100.7 60 27 109/54 90 07/31/17 12:55 97 100 07/31/17 12:17 94 Non-Rebreather 15.00 07/31/17 09:00 97.8 60 22 106/53 (70) 91 07/31/17 04:00 101.6 60 20 117/57 (77) 91 07/31/17 04:00 61 07/31/17 01:12 100.2 60 20 92 07/31/17 00:00 59 07/30/17 23:24 100.2 60 20 165/69 (101) 92 07/30/17 23:00 101.2 60 20 90 07/30/17 20:00 Nasal Cannula 2.00 07/30/17 20:00 100.6 60 20 133/60 (84) 98 07/30/17 20:00 62 07/30/17 16:03 99.9 60 19 123/60 (81) 90 07/30/17 16:00 Room Air 07/30/17 16:00 58 Physical Exam GENERAL: Patient is a well-nourished, well-developed female, sedated on the vent, not in respiratory distress. SKIN: Warm and dry. No generalized rash, no ecchymoses and no evidence of embolic lesions. HEAD: Atraumatic. Normocephalic. No temporal wasting, or tenderness. EYES: Pale pink conjunctiva. Has some hemorrhage in her L eye. No petechia. Pupils equal, round and reactive to light. No scleral icterus. EARS, NOSE AND THROAT: Nose without bleeding or purulent nasal discharge. She is orally intubated. NECK: Trachea midline. Supple and not tender, no meningeal signs CARDIOVASCULAR: Regular rate and rhythm. No rub. His maker looks okay RESPIRATORY: Coarse breath sounds bilaterally, decreased at the bases, with rhonchi worse on the right side than on the left side. ABDOMEN: Soft, non-tender, nondistended. Bowel sounds present and normoactive. No guarding. No rebound. No organomegaly. EXTREMITIES: No clubbing, cyanosis. Bilateral pitting edema. She has thickened skin in both legs with some nodular areas double with patients having chronic lower extremity edema. Well perfused and warm. NEUROLOGICAL: Sedated PSYCHIATRIC: Unable to assess LINE: No evidence of infection Laboratory Laboratory Tests Test 07/31/17 00:00 07/31/17 01:50 07/31/17 02:53 07/31/17 09:15 White Blood Count 2.2 Red Blood Count 4.11 Hemoglobin 11.6 Hematocrit 33.7 Mean Corpuscular Volume 81.9 Mean Corpuscular Hemoglobin 28.1 Mean Corpuscular Hemoglobin Concent 34.3 Red Cell Distribution Width 18.0 Platelet Count 87 Mean Platelet Volume 9.8 CBC Comment AUTO DIFF Differential Total Cells Counted 100 Neutrophils % (Manual) 50 Band Neutrophils % 3 Lymphocytes % 14 Monocytes % 12 Other Cells % 8 Neutrophils # (Manual) 1.5 Metamyelocytes 6 Myelocytes 6 Promyelocytes 1 Differential Comment FINAL DIFF MANUAL Toxic Granulation 2+ Toxic Vacuolation PRESENT Platelet Estimate LOW Platelet Morphology Comment NORMAL Ovalocytes 1+ Blood Urea Nitrogen 43 Creatinine 1.60 Random Glucose 245 Total Protein 5.5 Albumin 2.3 Calcium Level 9.1 Alkaline Phosphatase 84 Aspartate Amino Transf (AST/SGOT) 16 Alanine Aminotransferase (ALT/SGPT) 14 Total Bilirubin 1.5 Sodium Level 133 Potassium Level 2.9 Chloride Level 93 Carbon Dioxide Level 28.9 Anion Gap 11 Estimat Glomerular Filtration Rate 32 Lactic Acid Level 2.4 2.2 Urine Color YELLOW Urine Turbidity HAZY Urine pH 5.5 Urine Specific Lind 1.011 Urine Protein 100 Urine Glucose (UA) NEG Urine Ketones TRACE Urine Occult Blood SMALL Urine Nitrite NEG Urine Bilirubin NEG Urine Urobilinogen LESS THAN 2.0 Urine Leukocyte Esterase NEG Urine RBC 2 Urine WBC 2 Urine Squamous Epithelial Cells 1 Urine Bacteria MOD Urine Hyaline Casts 9 Microscopic Urinalysis Comment CULTURE INDICATED Blood Gas Puncture Site RT RADIAL Blood Gas Patient Temperature 98.6 Blood Gas HCO3 27 Blood Gas Base Excess 3.9 Blood Gas Oxygen Saturation 91 Arterial Blood pH 7.48 Arterial Blood Partial Pressure CO2 37 Arterial Blood Partial Pressure O2 64 Arterial Blood Oxygen Content 14.6 Arterial Blood Carboxyhemoglobin 1.8 Arterial Blood Methemoglobin 0.9 Blood Gas Hemoglobin 11.4 Oxygen Delivery Device NASAL CANNULA Blood Gas Liter Flow 4 Test 07/31/17 10:35 07/31/17 13:30 White Blood Count 1.6 Red Blood Count 3.98 Hemoglobin 11.1 Hematocrit 32.4 Mean Corpuscular Volume 81.6 Mean Corpuscular Hemoglobin 27.9 Mean Corpuscular Hemoglobin Concent 34.2 Red Cell Distribution Width 18.4 Platelet Count 78 Mean Platelet Volume 10.0 CBC Comment AUTO DIFF Differential Total Cells Counted 50 Neutrophils % (Manual) 40 Band Neutrophils % 2 Lymphocytes % 10 Monocytes % 16 Neutrophils # (Manual) 1.1 Metamyelocytes 22 Myelocytes 2 Promyelocytes 4 Differential Comment FINAL DIFF MANUAL Blastocytes 4 Toxic Granulation 2+ Platelet Estimate LOW Platelet Morphology Comment NORMAL Ovalocytes 1+ Prothrombin Time 121.0 Prothromb Time International Ratio 12.2 Blood Urea Nitrogen 53 Creatinine 2.04 Random Glucose 209 Calcium Level 8.8 Phosphorus Level 1.8 Magnesium Level 2.5 Sodium Level 134 Potassium Level 3.3 Chloride Level 93 Carbon Dioxide Level 28.2 Anion Gap 13 Estimat Glomerular Filtration Rate 24 Lactic Acid Level 3.5 Total Creatine Kinase 18 Troponin I 0.08 Blood Gas Puncture Site LT RADIAL Blood Gas Patient Temperature 98.6 Blood Gas HCO3 26 Blood Gas Base Excess 1.3 Blood Gas Oxygen Saturation 86 Arterial Blood pH 7.38 Arterial Blood Partial Pressure CO2 45 Arterial Blood Partial Pressure O2 60 Arterial Blood Oxygen Content 15.1 Arterial Blood Carboxyhemoglobin 1.1 Arterial Blood Methemoglobin 1.3 Blood Gas Hemoglobin 12.5 Oxygen Delivery Device VENTILATOR Blood Gas Ventilator Setting A/C 450/14/5PEEP Blood Gas Inspired Oxygen 100 Date/Time Source Procedure Growth Status 07/31/17 00:05 Blood Peripheral Aerobic Blood Culture Pending Received 07/31/17 00:05 Blood Peripheral Anaerobic Blood Culture Pending Received 07/31/17 12:21 Nasal Washing Influenza Types A,B Antigen (JENNIE) - Final NEGATIVE FOR FLU A AND B ANTIGEN.... Complete 07/31/17 10:50 Urine Catheterized Urine Legionella Antigen - Final PRESUMPTIVE NEGATIVE FOR LEGIONELLA P... Complete 07/31/17 10:50 Urine Catheterized Urine Streptococcus pneumoniae Antigen (M - Final PRESUMPTIVE NEGATIVE FOR STREPTOCOCCU... Complete Result Diagram: 07/31/17 1035 07/31/17 1035 Imaging RADIOLOGY STUDIES/FILMS REVIEWED Last Impressions Chest X-Ray 07/31/17 0000 Signed Impressions: Service Date/Time: July 09:21 - CONCLUSION: Stable bilateral patchy pulmonary infiltrates without significant change compared to the prior exam. Naga Felder MD Thoracic Spine CT 07/24/17 0000 Signed Impressions: Service Date/Time: July 19:38 - CONCLUSION: Degenerative changes throughout the thoracic spine. Multilevel disc bulges and foraminal narrowing as described above. No significant spinal stenosis. No acute compression fracture or subluxation. 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 Old lacunar infarct involving the left cerebellar hemisphere. Moderate periventricular and subcortical white matter small vessel ischemic changes bilaterally. No acute infarct, acute hemorrhage, mass effect or extra-axial fluid collections. Jaycob Camara MD Cervical Spine CT 07/24/17 0000 Signed Impressions: Service Date/Time: July 19:34 - CONCLUSION: 1. Mild spinal stenosis and moderate to severe bilateral foraminal narrowing at C5-6. 2. Mild left neuroforaminal narrowing at C3-4 and mild bilateral foraminal narrowing at C4-5. 3. No acute fracture or prevertebral soft tissue swelling. 1. Jaycob Camara MD Assessment and Plan Assessment and Plan IMPRESSION New bilateral infiltrates, fairly acute, ?pulmonary edema - ?PNA, ?aspiration respiratory failure Sepsis, with new fevers Pancytopenia S/P AVR, open wide TR Multiple Abx allergies (PCN, Cephalosporins, quinolones, macrolides, doxycyline) Known MS RECOMMENDATION Agree with cultures Continue Azactam Continue Vancomcyin Add Flagyl Follow C/S Monitor progress Will determine course of Abx once workup completed and depending on her clinical course I will follow along with you Thank you for this consultation Discussed Condition With D/W Victoria Castelan MD Jul 31, 2017 14:09
--- NOTE | 2017-07-31 16:22 | RADRPT ---
EXAM DATE/TIME: 07/31/2017 14:25 [facility] COMPARISON: US KIDNEY/RENAL/BLADDER, January 31, 2017, 19:26. INDICATIONS : Acute kidney infection. MEDICAL HISTORY : Hypercholesterolemia. Hypertension. Congestive heart failure. Seizures. CVA. Apnea. GERD. Diabetes. R enal disease. Kidney stones. Non-hodgkins lymphoma. Chemotherapy. SURGICAL HISTORY : Hysterectomy. Pacemaker. Appendectomy. Aortic valve replacement. Cholecystectomy. Left oophrectomy. ENCOUNTER: Initial ACUITY: 1 day PAIN SCORE: Nonresponsive. LOCATION: Bilateral flank MEASUREMENTS: RIGHT KIDNEY: 9.0 x 4.6 x 5.2 cm LEFT KIDNEY: 9.3 x 5.3 x 5.3 cm FINDINGS: RIGHT KIDNEY: Renal cortex is normal in thickness and echotexture. No hydronephrosis, stone, or mass. LEFT KIDNEY: Renal cortex is normal in thickness and echotexture. No hydronephrosis, stone, or mass. BLADDER: Completely decompressed and nonvisualized. MISCELLANEOUS: Small amount of abdominal ascites. 4.9 x 1.3 cm fluid collection just anterior to the liver in the [facility] upper abdominal quadrant may represent some loculated ascites. CONCLUSION: 1. Abdominal ascites. 2. Both kidneys are sonographically stable and intact. 3. Nonvisualization of the bladder as it is completely decompressed. Salomón Obrien MD on July 31, 2017 at 16:16 Board Certified Radiologist. This report was verified electronically.
[2017-07-31] MEDS: SODIUM CHLOR 0.9% 1000 ML INJ 1,000 ML IV SCH (16:23)
--- NOTE | 2017-07-31 17:22 | PD.CONS ---
Consult Service Palliative Care . Consult Requested By Dr. Bravo . Primary Care Physician Non-Staff Reason for Consultation a. To assist with evaluation and management of symptoms including: dyspnea, pain, anxiety b. To assist medical decision maker(s) with: better understanding of current medical conditions; weighing benefits/burdens of medical treatment options; making medical treatment decisions. . HPI History of Present Illness Patient is a 67-year-old female with a complex medical history who presented to [facility] ED on 07/23/2016 with complaints of persistent dyspnea, congestion , wheezing and chest pain. The patient had been discharged the day before after being hospitalized for 6 days. The patient stated she did not agree with the discharge because she remained symptomatic; she stated her symptoms had worsened overnight. Patient reporting intermittent chest pain that radiates under her left breast and is similar to previous episodes of CHF. She said she takes Coumadin daily and has her INR checked regularly. 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 Buitrago. Additional diagnostic data: * Vital signs: Pulse 74, respirations 22, BP 132/68, oxygen saturation 100% on room air, oral temperature 98.7 * WBC 1.6, hemoglobin 10.3, hematocrit 30.1, platelets 128, neutrophils 48.4% * Sodium: 133, potassium 4.3, chloride 96, carbon dioxide 32.7, glucose 121, calcium 9.1, magnesium 1.7 * BUN: 17, creatinine 1.23, GFR 44 * Total bilirubin: 0.6, AST 24, ALT 13, alkaline phosphatase 168 * Troponin: <0.02 * Total protein: 5.8, albumin 2.9 * PT: 21.4, INR 2.1, APTT 38.7 * Urinalysis within normal limits * Chest x-ray showed no acute disease. * EKG showed ventricular paced rhythm Patient had trace edema in her lower extremities at discharge the day before which had worsened with pitting edema in her lower extremities from thigh down. Patient had 1 kg weight gain overnight. ED physician spoke with the patient's corncob pipes assembler () and the patient was readmitted for management of acute on chronic CHF. Patient patient was seen by cardiology, Dr. Huan Billingsley, during her recent hospitalization. Dr. Billingsley concluded that the patient's fluid overload was likely secondary to CHF. An echocardiogram on 07/15/2017 showed severe/wide open tricuspid regurgitation (not seen on previous echocardiogram) which could be because of the patient's fluid overload; appeared to have some element of at least mild ventricular systolic dysfunction and right ventricular enlargement. There was no evidence for pulmonary hypertension. Patient had significant edema in bilateral lower extremities from the thigh down; lungs were clear suggesting right-sided failure which would be consistent with her tricuspid valve regurgitation. cardiothoracic surgery team that the patient was high risk candidate for tricuspid valve surgery or any other surgery. Dr. Carter requested the films and consultations be sent to [facility] to be evaluated for possible transfer and evaluation for surgery at a tertiary center. Neurology (Dr. Lorenzana) was consulted secondary to to patient's known history of multiple sclerosis documented by MR findings. Patient is not on immunomodulators. Patient was started on Solu-Medrol 07/25/2017 CT of the brain and spine were recommended to rule out cord compressing lesions which were negative. Patient had workup with hematology/oncology during her most recent hospitalization. She has a history of grade 1 follicular lymphoma status post 4 cycles of Rituxan and Bendamustine in March,. A PET scan showed good response and resolution of the hypermetabolic uptake in the abdominal lymph node and the patient was started on maintenance Rituxan. No evidence of recurrent disease. Pancytopenia is likely due to underlying liver disease/ cirrhosis and splenomegaly. Neutrophil count trending downward over the weekend therefore initiated Neupogen on 07/28/2016. Psychiatry was consulted on 07/28/2017 per patient who feels anxious given current hospitalization and complex medical history. Patient currently on Wellbutrin 75mg BID. Dr. Norris started the patient on Zoloft 25 mg daily and clonidine 0.5 mg 2 times daily as needed for breakthrough anxiety. Patient febrile overnight; T-max 101.6. Patient was started on broad-spectrum antibiotics, aztreonam and vancomycin. Infectious disease was consulted. = ABG showed pH of 7.4, CO2 37, paO2 6 4, bicarb 27 and saturation of 91% on 4 L via nasal cannula. = Chest x-ray showed bilateral pulmonary infiltrates = Stat INR: 12.2 = Lactic acid: 3.5 = Troponin: 0.08 Patient was transferred to the intensive care unit secondary to worsening respiratory status. When the patient's was called to determine goals of care, he stated he had just spoke with his a few days before and she stated she wanted everything done and to never be taken off machines. Palliative Care was consulted to assist with symptom management and to discuss with the family the benefits and burdens of her current illnesses and the options regarding future care. . Function/Cognitive Trajectory Patient has a complex medical history. Further information pending discussions with family. . Review of Systems ROS Limitations: Clinical Condition (ROS obtained through review of notes and report), Intubated Constitutional: COMPLAINS OF: Generalized weakness Respiratory: COMPLAINS OF: Cough (Reductive), Shortness of breath Cardiovascular: COMPLAINS OF: Chest pain Gastrointestinal: COMPLAINS OF: Difficulty Swallowing (When taking pills) Hematologic/Lymphatics: COMPLAINS OF: Bruising Psychiatric: COMPLAINS OF: Anxiety Past Family Social History Coded Allergies: ampicillin (Verified Allergy, Severe, Hives, 07/23/17) aspirin (Verified Allergy, Severe, Hives, 07/23/17) cashew nut (Verified Allergy, Severe, Anaphylaxis, 07/23/17) ciprofloxacin (Verified Allergy, Severe, Hives, 07/23/17) doxycycline (Verified Allergy, Severe, Anaphylaxis, 07/23/17) erythromycin base (Verified Allergy, Severe, Anaphylaxis, 07/23/17) iodine (Verified Allergy, Severe, Shortness of Breath, 07/23/17) minocycline (Verified Allergy, Severe, Anaphylaxis, 07/23/17) morphine (Verified Allergy, Severe, Anaphylaxis, 07/23/17) penicillin G (Verified Allergy, Severe, Hives, 07/23/17) potassium iodide (Verified Allergy, Severe, Shortness of Breath, 07/23/17) povidone-iodine (Verified Allergy, Severe, Shortness of Breath, 07/23/17) sodium iodide (Verified Allergy, Severe, Shortness of Breath, 07/23/17) sodium iodide (Verified Allergy, Severe, Shortness of Breath, 07/23/17) tigecycline (Verified Allergy, Severe, Anaphylaxis, 07/23/17) bee venom protein (honey bee) (Verified Allergy, Unknown, Shortness of Breath, 07/23/17) cephalexin (Verified Allergy, Unknown, Hives, 07/23/17) codeine (Verified Allergy, Unknown, Hives, 07/23/17) diclofenac (Verified Allergy, Unknown, Hives, 07/23/17) etodolac (Verified Allergy, Unknown, Hives, 07/23/17) flurbiprofen (Verified Allergy, Unknown, Hives, 07/23/17) gentamicin (Verified Allergy, Unknown, Hives, 07/23/17) indomethacin (Verified Allergy, Unknown, Hives, 07/23/17) ketoprofen (Verified Allergy, Unknown, Hives, 07/23/17) ketorolac (Verified Allergy, Unknown, Hives, 07/23/17) metronidazole (Verified Allergy, Unknown, Hives, 07/23/17) naproxen (Verified Allergy, Unknown, Hives, 07/23/17) oxaprozin (Verified Allergy, Unknown, Hives, 07/23/17) oxycodone (Verified Allergy, Unknown, Hives, 07/23/17) propoxyphene (Verified Allergy, Unknown, Hives, 07/23/17) Uncoded Allergies: KEFLIN (Allergy, Severe, Hives, 12/16/16) Past Medical History Diabetes Chronic pancytopenia Rheumatic heart disease Liver cirrhosis Bradycardia status post pacemaker placement Grade 1 follicular lymphoma Nephrolithiasis TIA Atrial fibrillation Aortic valve disease status post [place] aortic valve replacement 2 Hypertension Melanoma CHF Asthma CAD status post cardiac catheterization 01/2017 GERD Gout Hyperlipidemia MS . Past Surgical History Appendectomy AV valve replacement, [place]'s valve in 1986, mechanical valve on Coumadin Back surgery L3 to L5 fusion Cataract removal Cholecystectomy Pacemaker placement Resection of melanoma 2010 Right breast lumpectomy 2012 Tonsillectomy Tubal ligation Hysterectomy 1989 . Reported Medications Metolazone 5 Mg Tab 5 Mg PO DAILY Bumetanide 2 Mg Tab 3 Mg PO DAILY Ondansetron HCl 4 Mg Tab 4 Mg PO BID Allopurinol 300 Mg Tab 300 Mg PO DAILY Magnesium (Magnesium Oxide) 400 Mg Tablet 1 Tab PO BID Vitamin D3 (Cholecalciferol) 2,000 Unit Cap 2,000 Units PO DAILY Tizanidine (Tizanidine HCl) 4 Mg Tab 4 Mg PO HS Singulair (Montelukast Sodium) 10 Mg Tab 10 Mg PO HS Omeprazole 20 Mg Tab 20 Mg PO BID Lovastatin 10 Mg Tab 10 Mg PO 2XWEEK Potassium Chloride ER (Potassium Chloride) 20 Meq Tab 20 Meq PO DAILY Baclofen 20 Mg Tab 20 Mg PO QID . Current Medications Medications (Trade) Dose Ordered Sig/Love Route Start Time Stop Time Status Last Admin (NS Flush) 2 ml BID IV FLUSH 07/23/17 21:00 07/31/17 08:56 (NS Flush) 2 ml UNSCH PRN IV FLUSH 07/23/17 20:30 07/30/17 01:21 (Zyloprim) 300 mg DAILY PO 07/24/17 09:00 07/31/17 08:55 (Vitamin D3) 2,000 units DAILY PO 07/24/17 09:00 07/31/17 08:55 (Ledbetter 5-325 Mg) 1 tab Q6H PRN PO 07/23/17 20:30 07/28/17 21:53 (Pravachol) 10 mg 2XWEEK PO 07/24/17 09:00 (Zaroxolyn) 5 mg DAILY PO 07/24/17 09:00 07/31/17 08:54 (Singulair) 10 mg HS PO 07/23/17 21:00 07/30/17 22:16 (Protonix) 20 mg BID PO 07/23/17 23:00 07/31/17 08:54 (Zofran Odt) 4 mg BID PO 07/23/17 21:00 07/31/17 08:54 (Coumadin) 6 mg DAILY@1600 PO 07/24/17 16:00 Future Hold 07/29/17 16:53 (Duoneb Neb) 1 ampule Q4HR NEB PRN NEB 07/24/17 01:30 07/28/17 14:57 (Imdur) 60 mg DAILY@0700 PO 07/26/17 07:00 07/31/17 08:55 (Dulcolax Supp) 10 mg DAILY PRN RECTAL 07/27/17 01:30 (Wellbutrin) 75 mg Q12HR PO 07/27/17 21:00 07/31/17 08:55 (Mycostatin Liq) 5 ml QID SWISH-SWAL 07/27/17 21:00 07/31/17 08:55 (Bumetanide) 3 mg DAILY PO 07/29/17 09:00 Future Hold 07/31/17 08:54 Aztreonam 2000 mg/ Sodium Chloride 100 ml @ 200 mls/hr Q8H IV 07/31/17 02:00 07/31/17 04:47 Pharmacy Profile Note 0 ml @ 0 mls/hr UNSCH OTHER 07/31/17 01:45 (Neupogen Inj) 300 mcg DAILY@14 SQ 07/31/17 14:00 Pharmacy Profile Note 0 ml @ 0 mls/hr UNSCH OTHER 07/31/17 10:00 (Duoneb Neb) 1 ampule Q2HR NEB PRN NEB 07/31/17 10:30 (Duoneb Neb) 1 ampule Q4HR NEB NEB 07/31/17 12:00 07/31/17 12:17 (D50w (Vial) Inj) 50 ml UNSCH PRN IV PUSH 07/31/17 11:00 (Glucagon Inj) 1 mg UNSCH PRN OTHER 07/31/17 11:00 (NovoLIN R SUPPLEMENTAL SCALE) 1 Q6H SQ 07/31/17 11:00 Sodium Chloride 1,000 ml @ 42 mls/hr [id number] IV 07/31/17 12:15 (Peridex 0.12% Liq) 15 ml BID@08,20 MT 07/31/17 20:00 Fentanyl Citrate 250 ml @ 5 mls/hr TITRATE PRN IV 07/31/17 13:00 07/31/17 13:08 Propofol 100 ml @ 3.213 mls/ hr TITRATE PRN IV 07/31/17 13:45 07/31/17 15:09 Metronidazole 100 ml @ 100 mls/hr Q8H IV 07/31/17 14:00 Family History Both parents are . No reported family history of cancer. No familial history of mental illness. . Substance Use Tobacco: Never smoked Alcohol: No longer drinks alcohol. Prescription med abuse: None unknown Illicits: None known Psychosocial History Patient is and lives with her in [place], [place]. They have been for 38 years. She has a 47-year-old daughter from a previous marriage. 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 Her daughter was recently diagnosed with HIV and had to be kicked out of the house approximately 6 months ago. . Spiritual/Cultural Factors Baptism wen . Today's verbally stated goals: Patient unable to participate in establishment of medical treatment goals given current clinical condition. . Family/friends goals: When the patient's was called to determine goals of care, he stated he had just spoke with his a few days before and she stated she wanted everything done and to never be taken off machines. . Ethical and Legal Issues Per [place] statutes, in the absence of her advanced directives healthcare proxy decision making falls to the patient's spouse. . Physical Exam Vital Signs Date Time Temp Pulse Resp B/P (MAP) Pulse Ox O2 Delivery O2 Flow Rate FiO2 07/31/17 14:19 100.1 59 22 122/59 90 07/31/17 14:01 99.0 59 33 122/59 90 07/31/17 13:45 87 60 07/31/17 13:35 101.0 60 33 109/54 87 07/31/17 13:18 100.7 60 27 109/54 90 07/31/17 12:55 97 100 07/31/17 12:30 100 07/31/17 12:17 94 Non-Rebreather 15.00 07/31/17 09:00 97.8 60 22 106/53 (70) 91 07/31/17 04:00 101.6 60 20 117/57 (77) 91 07/31/17 04:00 61 07/31/17 01:12 100.2 60 20 92 07/31/17 00:00 59 07/30/17 23:24 100.2 60 20 165/69 (101) 92 07/30/17 23:00 101.2 60 20 90 07/30/17 20:00 Nasal Cannula 2.00 07/30/17 20:00 100.6 60 20 133/60 (84) 98 07/30/17 20:00 62 07/30/17 16:03 99.9 60 19 123/60 (81) 90 07/30/17 16:00 Room Air 07/30/17 16:00 58 . 07/31/17 08/01/17 19:00 07:00 Intake Total 337 ml Balance 337 ml FFP 307 ml Blood Product IV Normal Saline Flush 30 ml . Exam CONSTITUTIONAL/GENERAL: This is a frail, elderly female who is intubated on mechanical ventilation TUBES/LINES/DRAINS: PIV 1, implanted VAD right chest SKIN: Ashen color. Ecchymoses on upper extremities. HEAD: Atraumatic. Normocephalic. EYES: Eyes closed, did not force open. ENT: Unable to assess hearing secondary to clinical condition. No nose without bleeding or purulent drainage. NECK: Trachea midline. CARDIOVASCULAR: Paced rhythm no JVD. Peripheral pulses symmetric. RESPIRATORY/CHEST: Intubated on mechanical ventilation; coarse air exchange. GASTROINTESTINAL: Abdomen soft, non-tender, nondistended. GENITOURINARY: Voiding. MUSCULOSKELETAL: No mottling or cyanosis. Pitting edema in bilateral lower extremities from thigh down LYMPHATICS: No palpable cervical or supraclavicular adenopathy. NEUROLOGICAL: Sedated on propofol and fentanyl PSYCHIATRIC: Unable to assess given current clinical condition. . Diagnostic Tests Laboratory Laboratory Tests Test 07/29/17 14:27 07/30/17 05:20 07/31/17 00:00 07/31/17 01:50 White Blood Count 3.0 TH/MM3 (4.0-11.0) 2.9 TH/MM3 (4.0-11.0) 2.2 TH/MM3 (4.0-11.0) Red Blood Count 3.81 MIL/MM3 (4.00-5.30) 4.29 MIL/MM3 (4.00-5.30) 4.11 MIL/MM3 (4.00-5.30) Hemoglobin 10.8 GM/DL (11.6-15.3) 11.9 GM/DL (11.6-15.3) 11.6 GM/DL (11.6-15.3) Hematocrit 30.9 % (35.0-46.0) 34.9 % (35.0-46.0) 33.7 % (35.0-46.0) Mean Corpuscular Volume 81.1 FL (80.0-100.0) 81.2 FL (80.0-100.0) 81.9 FL (80.0-100.0) Mean Corpuscular Hemoglobin 28.3 PG (27.0-34.0) 27.8 PG (27.0-34.0) 28.1 PG (27.0-34.0) Mean Corpuscular Hemoglobin Concent 34.9 % (32.0-36.0) 34.2 % (32.0-36.0) 34.3 % (32.0-36.0) Red Cell Distribution Width 18.0 % (11.6-17.2) 18.4 % (11.6-17.2) 18.0 % (11.6-17.2) Platelet Count 174 TH/MM3 (150-450) 95 TH/MM3 (150-450) 87 TH/MM3 (150-450) Mean Platelet Volume 8.9 FL (7.0-11.0) 9.0 FL (7.0-11.0) 9.8 FL (7.0-11.0) CBC Comment AUTO DIFF AUTO DIFF AUTO DIFF Differential Total Cells Counted 100 100 100 Neutrophils % (Manual) 61 % (16-70) 57 % (16-70) 50 % (16-70) Band Neutrophils % 13 % (0-6) 11 % (0-6) 3 % (0-6) Lymphocytes % 5 % (9-44) 6 % (9-44) 14 % (9-44) Monocytes % 18 % (0-8) 19 % (0-8) 12 % (0-8) Neutrophils # (Manual) 2.3 TH/MM3 (1.8-7.7) 2.2 TH/MM3 (1.8-7.7) 1.5 TH/MM3 (1.8-7.7) Metamyelocytes 2 % (0-1) 6 % (0-1) 6 % (0-1) Myelocytes 1 % (0-0) 1 % (0-0) 6 % (0-0) Differential Comment FINAL DIFF MANUAL FINAL DIFF MANUAL FINAL DIFF MANUAL Toxic Granulation 1+ (NORMAL) 2+ (NORMAL) Platelet Estimate NORMAL (NORMAL) LOW (NORMAL) LOW (NORMAL) Platelet Morphology Comment NORMAL (NORMAL) NORMAL (NORMAL) NORMAL (NORMAL) Ovalocytes 1+ (NORMAL) 1+ (NORMAL) 1+ (NORMAL) Acanthocytes OCC (NORMAL) Blood Urea Nitrogen 44 MG/DL (7-18) 43 MG/DL (7-18) Creatinine 1.56 MG/DL (0.50-1.00) 1.60 MG/DL (0.50-1.00) Random Glucose 212 MG/DL (74-106) 245 MG/DL (74-106) Calcium Level 9.1 MG/DL (8.5-10.1) 9.1 MG/DL (8.5-10.1) Sodium Level 130 MEQ/L (136-145) 133 MEQ/L (136-145) Potassium Level 3.3 MEQ/L (3.5-5.1) 2.9 MEQ/L (3.5-5.1) Chloride Level 91 MEQ/L (98-107) 93 MEQ/L (98-107) Carbon Dioxide Level 29.8 MEQ/L (21.0-32.0) 28.9 MEQ/L (21.0-32.0) Anion Gap 9 MEQ/L (5-15) 11 MEQ/L (5-15) Estimat Glomerular Filtration Rate 33 ML/MIN (>89) 32 ML/MIN (>89) Other Cells % 8 % Promyelocytes 1 % (0-0) Toxic Vacuolation PRESENT (NONE SEEN) Total Protein 5.5 GM/DL (6.4-8.2) Albumin 2.3 GM/DL (3.4-5.0) Alkaline Phosphatase 84 U/L (45-117) Aspartate Amino Transf (AST/SGOT) 16 U/L (15-37) Alanine Aminotransferase (ALT/SGPT) 14 U/L (10-53) Total Bilirubin 1.5 MG/DL (0.2-1.0) Lactic Acid Level 2.4 mmol/L (0.4-2.0) Urine Color YELLOW (YELLW/STRAW) Urine Turbidity HAZY (CLEAR) Urine pH 5.5 (5.0-8.5) Urine Specific Mcclusky 1.011 (1.002-1.035) Urine Protein 100 mg/dL (NEG-TRACE) Urine Glucose (UA) NEG mg/dL (NEG) Urine Ketones TRACE mg/dL (NEG) Urine Occult Blood SMALL (NEG) Urine Nitrite NEG (NEG) Urine Bilirubin NEG (NEG) Urine Urobilinogen LESS THAN 2.0 MG/DL (LESS Urine Leukocyte Esterase NEG (NEG) Urine RBC 2 /hpf (0-3) Urine WBC 2 /hpf (0-5) Urine Squamous Epithelial Cells 1 /hpf (0-5) Urine Bacteria MOD /hpf (NONE) Urine Hyaline Casts 9 /lpf (RARE) Microscopic Urinalysis Comment CULTURE INDICATED Test 07/31/17 02:53 07/31/17 09:15 07/31/17 10:35 07/31/17 13:30 Lactic Acid Level 2.2 mmol/L (0.4-2.0) 3.5 mmol/L (0.4-2.0) Blood Gas Puncture Site RT RADIAL LT RADIAL Blood Gas Patient Temperature 98.6 98.6 Blood Gas HCO3 27 mmol/L (22-26) 26 mmol/L (22-26) Blood Gas Base Excess 3.9 mmol/L (-2-2) 1.3 mmol/L (-2-2) Blood Gas Oxygen Saturation 91 % (90-100) 86 % (90-100) Arterial Blood pH 7.48 (7.380-7.420) 7.38 (7.380-7.420) Arterial Blood Partial Pressure CO2 37 mmHg (38-42) 45 mmHg (38-42) Arterial Blood Partial Pressure O2 64 mmHg (61-120) 60 mmHg (61-120) Arterial Blood Oxygen Content 14.6 Vol % (12.0-20.0) 15.1 Vol % (12.0-20.0) Arterial Blood Carboxyhemoglobin 1.8 % (0-4) 1.1 % (0-4) Arterial Blood Methemoglobin 0.9 % (0-2) 1.3 % (0-2) Blood Gas Hemoglobin 11.4 G/DL (12.0-16.0) 12.5 G/DL (12.0-16.0) Oxygen Delivery Device NASAL CANNULA VENTILATOR Blood Gas Liter Flow 4 L/M White Blood Count 1.6 TH/MM3 (4.0-11.0) Red Blood Count 3.98 MIL/MM3 (4.00-5.30) Hemoglobin 11.1 GM/DL (11.6-15.3) Hematocrit 32.4 % (35.0-46.0) Mean Corpuscular Volume 81.6 FL (80.0-100.0) Mean Corpuscular Hemoglobin 27.9 PG (27.0-34.0) Mean Corpuscular Hemoglobin Concent 34.2 % (32.0-36.0) Red Cell Distribution Width 18.4 % (11.6-17.2) Platelet Count 78 TH/MM3 (150-450) Mean Platelet Volume 10.0 FL (7.0-11.0) CBC Comment AUTO DIFF Differential Total Cells Counted 50 Neutrophils % (Manual) 40 % (16-70) Band Neutrophils % 2 % (0-6) Lymphocytes % 10 % (9-44) Monocytes % 16 % (0-8) Neutrophils # (Manual) 1.1 TH/MM3 (1.8-7.7) Metamyelocytes 22 % (0-1) Myelocytes 2 % (0-0) Promyelocytes 4 % (0-0) Differential Comment FINAL DIFF MANUAL Blastocytes 4 % (0-0) Toxic Granulation 2+ (NORMAL) Platelet Estimate LOW (NORMAL) Platelet Morphology Comment NORMAL (NORMAL) Ovalocytes 1+ (NORMAL) Prothrombin Time 121.0 SEC (9.8-11.6) Prothromb Time International Ratio 12.2 RATIO Blood Urea Nitrogen 53 MG/DL (7-18) Creatinine 2.04 MG/DL (0.50-1.00) Random Glucose 209 MG/DL (74-106) Calcium Level 8.8 MG/DL (8.5-10.1) Phosphorus Level 1.8 MG/DL (2.5-4.9) Magnesium Level 2.5 MG/DL (1.5-2.5) Sodium Level 134 MEQ/L (136-145) Potassium Level 3.3 MEQ/L (3.5-5.1) Chloride Level 93 MEQ/L (98-107) Carbon Dioxide Level 28.2 MEQ/L (21.0-32.0) Anion Gap 13 MEQ/L (5-15) Estimat Glomerular Filtration Rate 24 ML/MIN (>89) Total Creatine Kinase 18 U/L (26-192) Troponin I 0.08 NG/ML (0.02-0.05) Blood Gas Ventilator Setting A/C 450/14/5PEEP Blood Gas Inspired Oxygen 100 % . Result Diagram: 07/31/17 1035 07/31/17 1035 Microbiology Microbiology Date/Time Source Procedure Growth Status 07/31/17 00:05 Blood Peripheral Aerobic Blood Culture Pending Received 07/31/17 00:05 Blood Peripheral Anaerobic Blood Culture Pending Received 07/31/17 00:00 Blood Peripheral Aerobic Blood Culture Pending Received 07/31/17 00:00 Blood Peripheral Anaerobic Blood Culture Pending Received 07/31/17 12:21 Nasal Washing Influenza Types A,B Antigen (JENNIE) - Final NEGATIVE FOR FLU A AND B ANTIGEN.... Complete 07/31/17 10:50 Urine Catheterized Urine Legionella Antigen - Final PRESUMPTIVE NEGATIVE FOR LEGIONELLA P... Complete 07/31/17 10:50 Urine Catheterized Urine Streptococcus pneumoniae Antigen (M - Final PRESUMPTIVE NEGATIVE FOR STREPTOCOCCU... Complete 07/31/17 01:50 Urine Clean Catch Urine Culture Pending Received . Imaging Last 72 hours Impressions Renal Ultrasound 07/31/17 0000 Signed Impressions: Service Date/Time: July 14:25 - CONCLUSION: 1. Abdominal ascites. 2. Both kidneys are sonographically stable and intact. 3. Nonvisualization of the bladder as it is completely decompressed. Salomón Obrien MD Chest X-Ray 07/31/17 0000 Signed Impressions: Service Date/Time: July 13:07 - CONCLUSION: 1. Bilateral masslike airspace disease, right greater than left. Lesion on the left actually appears slightly more prominent when compared to the examination earlier today suggesting an infectious etiology. 2. Interval placement of an endotracheal and nasogastric tubes as above. Both appear to be appropriately positioned. Stable position of the right-sided [id number] and left subclavian bipolar pacer 3. Heart size remains prominent. Probable right-sided effusion. Salomón Obrien MD Chest X-Ray 07/31/17 0000 Signed Impressions: Service Date/Time: July 09:21 - CONCLUSION: Stable bilateral patchy pulmonary infiltrates without significant change compared to the prior exam. Naga Felder MD Chest X-Ray 07/30/17 0000 Signed Impressions: Service Date/Time: Sunday, July 30, 2017 23:20 - CONCLUSION: There is new patchy bilateral air space consolidation in the mid and upper lung zones. Chapito Richards MD Chest X-Ray 07/29/17 0000 Signed Impressions: Service Date/Time: Saturday, July 29, 2017 07:35 - CONCLUSION: 1. Minimal bibasilar airspace disease, presumably atelectasis. 2. Otherwise, stable chest. Brian Rosa MD . Procedures 07/31/17: Intubation . Patient/Family Conference Present at Family Conference: Attempted to contact patient's spouse via telephone, awaiting return phone call. . Family Conference Location: Telephone Issues Discussed: * Palliative care role, purpose, approach * Palliative care contact information provided . Assessment and Plan Disease Oriented Problem List: (1) MS (multiple sclerosis) (2) Systolic CHF, acute on chronic (3) Lymphoma (4) Hypokalemia (5) Severe tricuspid regurgitation (6) Congestive heart failure (CHF) (7) Ascites (8) Pancytopenia (9) Follicular lymphoma grade I (10) H/O multiple sclerosis (11) CAD (coronary artery disease) (12) Chronic atrial fibrillation (13) History of cardiac pacemaker (14) Generalized anxiety disorder (15) History of mechanical aortic valve replacement (16) History of aortic valve replacement Symptom Scale: (1) Dyspnea (2) Anxiety (3) Pain Pertinent Non-Medical Issues Psychosocial:Patient is and lives with her in [place], [place]. They have been for 38 years. She has a 47-year-old daughter from a previous marriage. 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 Her daughter was recently diagnosed with HIV and had to be kicked out of the house approximately 6 months ago. Spiritual: Baptism wen Legal: Per [place] statutes, in the absence of written advanced directives healthcare proxy decision making falls to the patient's spouse. Ethical issues impacting care: No known ethical issues impacting care at this time. . Important Contacts Naga Jerzy, spouse: [phone] Sadia Ching, Sister: [phone] . Prognosis Patient is a 67-year-old female with an extremely complicated medical history who is significantly debilitated, requiring mechanical intervention. She was hospitalized 07/23/2017 for management of acute on chronic CHF likely secondary to severe/wide open tricuspid valve regurgitation. Would expect ongoing episodes of fluid retention until/if the tricuspid valve can be repaired, however the patient is high risk for any intervention at this time. Patient is now neutropenic with supratherapeutic INR at 12.2. Given the patient's critical condition, overall debility and extremely complicated medical history, she will remain at risk for ongoing complications and decline. . Code Status: Full Code Plan * FULL CODE * Patient is critically ill, sedated on mechanical ventilation. Per [place] statutes, and absence of written advanced directives healthcare proxy decision making falls to the patient's . * AGGRESSIVE GOALS pending further conversation with family. When the patient's was called to determine goals of care, he stated he had just spoke with his a few days before and she stated she wanted everything done and to never be taken off machines. * SYMPTOM MANAGEMENT: = Anxiety: Known history of anxiety. Psychiatry was consulted on 07/28/2017 per patient who feels anxious given current hospitalization and complex medical history. Patient currently on Wellbutrin 75mg BID. Dr. Norris started the patient on Zoloft 25 mg daily and clonidine 0.5 mg 2 times daily as needed for breakthrough anxiety. = Pain: Multifactorial. Patient complaining of lower extremity pain secondary to edema; she has also complained of chest pain that she associates with persistent cough. Currently patient is sedated with propofol and fentanyl , intubated on mechanical ventilation. No symptoms of nonverbal pain observed. We will continue to monitor. No recommendations at this time. = Dyspnea: Multifactorial. Having increased dyspnea, wheezing and mostly non-productive cough over the past few days. Status post intubation 2017 secondary to worsening respiratory status. Chest x-ray showed bilateral pulmonary infiltrates. Lactic acid 3.5. * Discussed patient with bedside nurse and Dr. Bravo. * Palliative care attempted to contact patient's spouse via telephone. Contact information provided, awaiting return phone call. * Palliative care will continue to follow this patient throughout his hospitalization to establish trust, assist with symptom management clarification of medical treatment goals. . Thank you for the opportunity to participate in the care of Ms. Bertrand. , Attestation To help prompt me to consider important information that might be impacting today's encounter and assessment, information from prior notes written by myself or my colleagues may have been "brought forward" into today's note. My signature on this note, however, is an attestation that I personally performed the exam, history, and/or decision-making noted today, and, unless otherwise indicated, the interactions with patient, family, and staff as well as the review of records all occurred today. I also attest that the listed assessment and stated plan reflect my best clinical judgment today based on the combination of historical information, prior notes, and today's exam/ interactions. When time spent is documented, it refers only to time spent today by the signer, or if indicated, combined time spent today by collaborating physician/nurse practitioner. . Anamika Glass Jul 31, 2017 16:37
--- NOTE | 2017-07-31 18:08 | PD.CONS ---
HPI Service Nephrology Consult Requested By Dr. Bravo Reason for Consult Acute on Chronic renal insufficiency Primary Care Physician Non-Staff History of Present Illness The patient is a 67 yo [place] female with PMHx of CKD stage 3, bradycardia s/p pacer placement, aortic stenosis s/p AVR x2, follicular lymphoma, pancytopenia, ascites requiring therapeutic paracentesis, CHF with EF 45%, atrial fibrillation , severe TR, MS who presented to this facility on 07/23 with complaints of worsening edema, SOB, and chest pain. She was started on Lasix IV, Aldactone, as Metolazone. She underwent cardiovascular evaluation and ultimately was decided that she would benefit from TVR. She unfortunately developed ARDS and is currently intubated. CXR performed showed what appears to be L loculated infection, but CT scan pending to confirm not effusion. Records reviewed from previous admissions showing baseline SCr 1.2-1.6 Her admitting SCr was 1.23 that has worsened to 2.04 at consult. (Vero Cotton) Review of Systems ROS Limitations: Intubated (Vero Cotton) Past Family Social History Allergies: Coded Allergies: ampicillin (Verified Allergy, Severe, Hives, 07/23/17) aspirin (Verified Allergy, Severe, Hives, 07/23/17) cashew nut (Verified Allergy, Severe, Anaphylaxis, 07/23/17) ciprofloxacin (Verified Allergy, Severe, Hives, 07/23/17) doxycycline (Verified Allergy, Severe, Anaphylaxis, 07/23/17) erythromycin base (Verified Allergy, Severe, Anaphylaxis, 07/23/17) iodine (Verified Allergy, Severe, Shortness of Breath, 07/23/17) minocycline (Verified Allergy, Severe, Anaphylaxis, 07/23/17) morphine (Verified Allergy, Severe, Anaphylaxis, 07/23/17) penicillin G (Verified Allergy, Severe, Hives, 07/23/17) potassium iodide (Verified Allergy, Severe, Shortness of Breath, 07/23/17) povidone-iodine (Verified Allergy, Severe, Shortness of Breath, 07/23/17) sodium iodide (Verified Allergy, Severe, Shortness of Breath, 07/23/17) sodium iodide (Verified Allergy, Severe, Shortness of Breath, 07/23/17) tigecycline (Verified Allergy, Severe, Anaphylaxis, 07/23/17) bee venom protein (honey bee) (Verified Allergy, Unknown, Shortness of Breath, 07/23/17) cephalexin (Verified Allergy, Unknown, Hives, 07/23/17) codeine (Verified Allergy, Unknown, Hives, 07/23/17) diclofenac (Verified Allergy, Unknown, Hives, 07/23/17) etodolac (Verified Allergy, Unknown, Hives, 07/23/17) flurbiprofen (Verified Allergy, Unknown, Hives, 07/23/17) gentamicin (Verified Allergy, Unknown, Hives, 07/23/17) indomethacin (Verified Allergy, Unknown, Hives, 07/23/17) ketoprofen (Verified Allergy, Unknown, Hives, 07/23/17) ketorolac (Verified Allergy, Unknown, Hives, 07/23/17) metronidazole (Verified Allergy, Unknown, Hives, 07/23/17) naproxen (Verified Allergy, Unknown, Hives, 07/23/17) oxaprozin (Verified Allergy, Unknown, Hives, 07/23/17) oxycodone (Verified Allergy, Unknown, Hives, 07/23/17) propoxyphene (Verified Allergy, Unknown, Hives, 07/23/17) Uncoded Allergies: KEFLIN (Allergy, Severe, Hives, 12/16/16) Past Medical History CKD stage 3 (unclear if she follows with anyone as outpatient) Bradycardia s/p pacer placement AVS s/p AVR x2 Severe TR CHF with EF 45% along with right-sided HF A fib Ascites Follicular lymphoma s/p chemo Past Surgical History AVR x2 Pacer placement Appendectomy Hysterectomy L oophorectomy Cholecystectomy Reported Medications Reported Meds & Active Scripts Active [facility] (Hydrocodone-Acetaminophen) 5 Mg-325 Mg Tab 1 Tab PO Q6H PRN Aldactone (Spironolactone) 25 Mg Tab 25 Mg PO BID@09,18 Metoprolol Tartrate 25 Mg Tab 6.25 Mg PO Q12HR Isosorbide Mononitrate ER (Isosorbide Mononitrate) 30 Mg Gema 30 Mg PO DAILY@ 0700 Coumadin (Warfarin) 5 Mg Tab 5 Mg PO DAILY@1600 Reported Metolazone 5 Mg Tab 5 Mg PO DAILY Bumetanide 2 Mg Tab 3 Mg PO DAILY Ondansetron HCl 4 Mg Tab 4 Mg PO BID Allopurinol 300 Mg Tab 300 Mg PO DAILY Magnesium (Magnesium Oxide) 400 Mg Tablet 1 Tab PO BID Vitamin D3 (Cholecalciferol) 2,000 Unit Cap 2,000 Units PO DAILY Tizanidine (Tizanidine HCl) 4 Mg Tab 4 Mg PO HS Singulair (Montelukast Sodium) 10 Mg Tab 10 Mg PO HS Omeprazole 20 Mg Tab 20 Mg PO BID Lovastatin 10 Mg Tab 10 Mg PO 2XWEEK Potassium Chloride ER (Potassium Chloride) 20 Meq Tab 20 Meq PO DAILY Baclofen 20 Mg Tab 20 Mg PO QID Active Ordered Medications Current Medications Medications (Trade) Dose Ordered Sig/Love Route Start Time Stop Time Status Last Admin (NS Flush) 2 ml BID IV FLUSH 07/23/17 21:00 07/31/17 08:56 (NS Flush) 2 ml UNSCH PRN IV FLUSH 07/23/17 20:30 07/30/17 01:21 (Zyloprim) 300 mg DAILY PO 07/24/17 09:00 07/31/17 08:55 (Vitamin D3) 2,000 units DAILY PO 07/24/17 09:00 07/31/17 08:55 ([facility] 5-325 Mg) 1 tab Q6H PRN PO 07/23/17 20:30 07/28/17 21:53 (Pravachol) 10 mg 2XWEEK PO 07/24/17 09:00 (Zaroxolyn) 5 mg DAILY PO 07/24/17 09:00 07/31/17 08:54 (Singulair) 10 mg HS PO 07/23/17 21:00 07/30/17 22:16 (Protonix) 20 mg BID PO 07/23/17 23:00 07/31/17 08:54 (Zofran Odt) 4 mg BID PO 07/23/17 21:00 07/31/17 08:54 (Coumadin) 6 mg DAILY@1600 PO 07/24/17 16:00 Future Hold 07/29/17 16:53 (Duoneb Neb) 1 ampule Q4HR NEB PRN NEB 07/24/17 01:30 07/28/17 14:57 (Imdur) 60 mg DAILY@0700 PO 07/26/17 07:00 07/31/17 08:55 (Dulcolax Supp) 10 mg DAILY PRN RECTAL 07/27/17 01:30 (Wellbutrin) 75 mg Q12HR PO 07/27/17 21:00 07/31/17 08:55 (Mycostatin Liq) 5 ml QID SWISH-SWAL 07/27/17 21:00 07/31/17 08:55 (Bumetanide) 3 mg DAILY PO 07/29/17 09:00 Future Hold 07/31/17 08:54 Aztreonam 2000 mg/ Sodium Chloride 100 ml @ 200 mls/hr Q8H IV 07/31/17 02:00 07/31/17 04:47 Pharmacy Profile Note 0 ml @ 0 mls/hr UNSCH OTHER 07/31/17 01:45 (Neupogen Inj) 300 mcg DAILY@14 SQ 07/31/17 14:00 07/31/17 16:24 Pharmacy Profile Note 0 ml @ 0 mls/hr UNSCH OTHER 07/31/17 10:00 (Duoneb Neb) 1 ampule Q2HR NEB PRN NEB 07/31/17 10:30 (Duoneb Neb) 1 ampule Q4HR NEB NEB 07/31/17 12:00 07/31/17 16:55 (D50w (Vial) Inj) 50 ml UNSCH PRN IV PUSH 07/31/17 11:00 (Glucagon Inj) 1 mg UNSCH PRN OTHER 07/31/17 11:00 (NovoLIN R SUPPLEMENTAL SCALE) 1 Q6H SQ 07/31/17 11:00 Sodium Chloride 1,000 ml @ 42 mls/hr [id number] IV 07/31/17 12:15 07/31/17 16:23 (Peridex 0.12% Liq) 15 ml BID@08,20 MT 07/31/17 20:00 Fentanyl Citrate 250 ml @ 5 mls/hr TITRATE PRN IV 07/31/17 13:00 07/31/17 13:08 Propofol 100 ml @ 3.213 mls/ hr TITRATE PRN IV 07/31/17 13:45 07/31/17 15:09 Metronidazole 100 ml @ 100 mls/hr Q8H IV 07/31/17 14:00 Family History NC Social History No tobacco use, no illicits, no EtOH as per charts (Vero Cotton) Physical Exam Vital Signs Vital Signs Date Time Temp Pulse Resp B/P (MAP) Pulse Ox O2 Delivery O2 Flow Rate FiO2 07/31/17 16:00 60 07/31/17 15:00 59 15 122/59 (80) 92 07/31/17 14:19 100.1 59 22 122/59 90 07/31/17 14:01 99.0 59 33 122/59 90 07/31/17 13:45 87 60 07/31/17 13:35 101.0 60 33 109/54 87 07/31/17 13:18 100.7 60 27 109/54 90 07/31/17 12:55 97 100 07/31/17 12:30 100 07/31/17 12:17 94 Non-Rebreather 15.00 07/31/17 12:00 60 07/31/17 11:00 99.1 60 29 109/54 (72) 97 07/31/17 10:00 62 07/31/17 09:00 97.8 60 22 106/53 (70) 91 07/31/17 08:00 Nasal Cannula 2.00 07/31/17 04:00 101.6 60 20 117/57 (77) 91 07/31/17 04:00 61 07/31/17 01:12 100.2 60 20 92 07/31/17 00:00 59 07/30/17 23:24 100.2 60 20 165/69 (101) 92 07/30/17 23:00 101.2 60 20 90 07/30/17 20:00 Nasal Cannula 2.00 07/30/17 20:00 100.6 60 20 133/60 (84) 98 07/30/17 20:00 62 Physical Exam GENERAL: Intubated, sedated SKIN: Warm and dry. HEAD: Atraumatic. Normocephalic. EYES: Pupils equal and round. No scleral icterus. No injection or drainage. ENT: No nasal bleeding or discharge. Mucous membranes pink and moist. NECK: Trachea midline. No JVD. CARDIOVASCULAR: Irregularly irregular rhythm, 4/6 murmur. JVD noted. RESPIRATORY: Coarse rhonchi throughout. GASTROINTESTINAL: Abdomen soft, non-tender, nondistended. Hepatic and splenic margins not palpable. MUSCULOSKELETAL: Extremities without clubbing, cyanosis. Significant edema noted throughout. NEUROLOGICAL: Intubated and sedated. PSYCHIATRIC: Intubated and sedated. Laboratory Laboratory Tests Test 07/31/17 00:00 07/31/17 01:50 07/31/17 02:53 07/31/17 09:15 White Blood Count 2.2 Red Blood Count 4.11 Hemoglobin 11.6 Hematocrit 33.7 Mean Corpuscular Volume 81.9 Mean Corpuscular Hemoglobin 28.1 Mean Corpuscular Hemoglobin Concent 34.3 Red Cell Distribution Width 18.0 Platelet Count 87 Mean Platelet Volume 9.8 CBC Comment AUTO DIFF Differential Total Cells Counted 100 Neutrophils % (Manual) 50 Band Neutrophils % 3 Lymphocytes % 14 Monocytes % 12 Other Cells % 8 Neutrophils # (Manual) 1.5 Metamyelocytes 6 Myelocytes 6 Promyelocytes 1 Differential Comment FINAL DIFF MANUAL Toxic Granulation 2+ Toxic Vacuolation PRESENT Platelet Estimate LOW Platelet Morphology Comment NORMAL Ovalocytes 1+ Blood Urea Nitrogen 43 Creatinine 1.60 Random Glucose 245 Total Protein 5.5 Albumin 2.3 Calcium Level 9.1 Alkaline Phosphatase 84 Aspartate Amino Transf (AST/SGOT) 16 Alanine Aminotransferase (ALT/SGPT) 14 Total Bilirubin 1.5 Sodium Level 133 Potassium Level 2.9 Chloride Level 93 Carbon Dioxide Level 28.9 Anion Gap 11 Estimat Glomerular Filtration Rate 32 Lactic Acid Level 2.4 2.2 Urine Color YELLOW Urine Turbidity HAZY Urine pH 5.5 Urine Specific [place] 1.011 Urine Protein 100 Urine Glucose (UA) NEG Urine Ketones TRACE Urine Occult Blood SMALL Urine Nitrite NEG Urine Bilirubin NEG Urine Urobilinogen LESS THAN 2.0 Urine Leukocyte Esterase NEG Urine RBC 2 Urine WBC 2 Urine Squamous Epithelial Cells 1 Urine Bacteria MOD Urine Hyaline Casts 9 Microscopic Urinalysis Comment CULTURE INDICATED Blood Gas Puncture Site RT RADIAL Blood Gas Patient Temperature 98.6 Blood Gas HCO3 27 Blood Gas Base Excess 3.9 Blood Gas Oxygen Saturation 91 Arterial Blood pH 7.48 Arterial Blood Partial Pressure CO2 37 Arterial Blood Partial Pressure O2 64 Arterial Blood Oxygen Content 14.6 Arterial Blood Carboxyhemoglobin 1.8 Arterial Blood Methemoglobin 0.9 Blood Gas Hemoglobin 11.4 Oxygen Delivery Device NASAL CANNULA Blood Gas Liter Flow 4 Test 07/31/17 10:35 07/31/17 13:30 White Blood Count 1.6 Red Blood Count 3.98 Hemoglobin 11.1 Hematocrit 32.4 Mean Corpuscular Volume 81.6 Mean Corpuscular Hemoglobin 27.9 Mean Corpuscular Hemoglobin Concent 34.2 Red Cell Distribution Width 18.4 Platelet Count 78 Mean Platelet Volume 10.0 CBC Comment AUTO DIFF Differential Total Cells Counted 50 Neutrophils % (Manual) 40 Band Neutrophils % 2 Lymphocytes % 10 Monocytes % 16 Neutrophils # (Manual) 1.1 Metamyelocytes 22 Myelocytes 2 Promyelocytes 4 Differential Comment FINAL DIFF MANUAL Blastocytes 4 Toxic Granulation 2+ Platelet Estimate LOW Platelet Morphology Comment NORMAL Ovalocytes 1+ Prothrombin Time 121.0 Prothromb Time International Ratio 12.2 Blood Urea Nitrogen 53 Creatinine 2.04 Random Glucose 209 Calcium Level 8.8 Phosphorus Level 1.8 Magnesium Level 2.5 Sodium Level 134 Potassium Level 3.3 Chloride Level 93 Carbon Dioxide Level 28.2 Anion Gap 13 Estimat Glomerular Filtration Rate 24 Lactic Acid Level 3.5 Total Creatine Kinase 18 Troponin I 0.08 Blood Gas Puncture Site LT RADIAL Blood Gas Patient Temperature 98.6 Blood Gas HCO3 26 Blood Gas Base Excess 1.3 Blood Gas Oxygen Saturation 86 Arterial Blood pH 7.38 Arterial Blood Partial Pressure CO2 45 Arterial Blood Partial Pressure O2 60 Arterial Blood Oxygen Content 15.1 Arterial Blood Carboxyhemoglobin 1.1 Arterial Blood Methemoglobin 1.3 Blood Gas Hemoglobin 12.5 Oxygen Delivery Device VENTILATOR Blood Gas Ventilator Setting A/C 450/14/5PEEP Blood Gas Inspired Oxygen 100 Date/Time Source Procedure Growth Status 07/31/17 00:05 Blood Peripheral Aerobic Blood Culture Pending Received 07/31/17 00:05 Blood Peripheral Anaerobic Blood Culture Pending Received 07/31/17 12:21 Nasal Washing Influenza Types A,B Antigen (JENNIE) - Final NEGATIVE FOR FLU A AND B ANTIGEN.... Complete 07/31/17 10:50 Urine Catheterized Urine Legionella Antigen - Final PRESUMPTIVE NEGATIVE FOR LEGIONELLA P... Complete 07/31/17 10:50 Urine Catheterized Urine Streptococcus pneumoniae Antigen (M - Final PRESUMPTIVE NEGATIVE FOR STREPTOCOCCU... Complete (Vero Cotton) Result Diagram: 07/31/17 1035 07/31/17 1035 Imaging Last Impressions Renal Ultrasound 07/31/17 0000 Signed Impressions: Service Date/Time: July 14:25 - CONCLUSION: 1. Abdominal ascites. 2. Both kidneys are sonographically stable and intact. 3. Nonvisualization of the bladder as it is completely decompressed. Salomón Obrien MD Chest X-Ray 07/31/17 0000 Signed Impressions: Service Date/Time: July 13:07 - CONCLUSION: 1. Bilateral masslike airspace disease, right greater than left. Lesion on the left actually appears slightly more prominent when compared to the examination earlier today suggesting an infectious etiology. 2. Interval placement of an endotracheal and nasogastric tubes as above. Both appear to be appropriately positioned. Stable position of the right-sided [id number]-v-[id number] and left subclavian bipolar pacer 3. Heart size remains prominent. Probable right-sided effusion. Salomón Obrien MD Thoracic Spine CT 07/24/17 0000 Signed Impressions: Service Date/Time: July 19:38 - CONCLUSION: Degenerative changes throughout the thoracic spine. Multilevel disc bulges and foraminal narrowing as described above. No significant spinal stenosis. No acute compression fracture or subluxation. 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 Old lacunar infarct involving the left cerebellar hemisphere. Moderate periventricular and subcortical white matter small vessel ischemic changes bilaterally. No acute infarct, acute hemorrhage, mass effect or extra-axial fluid collections. Jaycob Camara MD Cervical Spine CT 07/24/17 0000 Signed Impressions: Service Date/Time: July 19:34 - CONCLUSION: 1. Mild spinal stenosis and moderate to severe bilateral foraminal narrowing at C5-6. 2. Mild left neuroforaminal narrowing at C3-4 and mild bilateral foraminal narrowing at C4-5. 3. No acute fracture or prevertebral soft tissue swelling. 1. Jaycob Camara MD (Vero Cotton) Assessment and Plan Problem List: (1) SAGE (acute kidney injury) ICD Codes: N17.9 - Acute kidney failure, unspecified Status: Acute Plan: Renal insufficiency likely related to hemodynamic factors related to cardiorenal syndrome. She is requiring aggressive diuresis for her anasarca, but this is complicated by her right sided heart failure now with hypotension. At this point, the mainstay of her treatment would be to correct her severe tricuspid regurgitation. She is non-oliguric at the present. Her potassium is being repleted by CC. We will continue to follow in the periphery. Little to offer from a renal standpoint at this time. (2) Severe tricuspid regurgitation ICD Codes: I07.1 - Rheumatic tricuspid insufficiency Status: Acute (3) Congestive heart failure (CHF) ICD Codes: I50.9 - Heart failure, unspecified Status: Acute (4) Ascites ICD Codes: R18.8 - Other ascites (5) Permanent atrial fibrillation ICD Codes: I48.2 - Chronic atrial fibrillation (6) Pancytopenia ICD Codes: D61.818 - Other pancytopenia (7) Follicular lymphoma grade I ICD Codes: C82.00 - Follicular lymphoma grade I, unspecified site (8) Hypokalemia ICD Codes: E87.6 - Hypokalemia (9) Anasarca ICD Codes: R60.1 - Generalized edema Status: Acute (Vero Cotton) Problem List: (1) SAGE (acute kidney injury) ICD Codes: N17.9 - Acute kidney failure, unspecified Status: Acute Plan: Renal insufficiency likely related to hemodynamic factors related to cardiorenal syndrome. Patient appears to have severe tricuspid valve insufficiency requiring surgical repair. Possible transfer to [facility] in regard to same. Mainstay of therapy is trying to optimize cardiac status. In view of the severity of her tricuspid valve insufficiency will be difficult to diurese aggressively as she is likely preload dependent. Little to offer from renal point of view given that the primary issue here is myocardial dysfunction. If the patient's azotemia continues to deteriorate very uncertain if she would be able to tolerate hemodialysis and significant ultrafiltration given hemodynamic instability and preload dependence. Continues to diurese as tolerated and hopefully the patient will be stable enough for transfer to a tertiary institution for definitive management of her valvular dysfunction. She is non-oliguric at the present. Her potassium is being repleted by CC. We will continue to follow as indicated but little to offer from a renal standpoint at this time. (2) Severe tricuspid regurgitation ICD Codes: I07.1 - Rheumatic tricuspid insufficiency Status: Acute Plan: With tentative plans to transfer to his tertiary institution for definitive management. (3) Congestive heart failure (CHF) ICD Codes: I50.9 - Heart failure, unspecified Status: Acute Plan: Which may be intractable related to valvular disease. (4) Ascites ICD Codes: R18.8 - Other ascites Plan: The exam, history, and the medical decision-making described in the above note were completed with the assistance of the PADMINI. I reviewed and agree with the findings presented. I attest that I had a [id number] encounter with the patient on the same day, and personally performed and documented my assessment and findings in the medical record. (5) Permanent atrial fibrillation ICD Codes: I48.2 - Chronic atrial fibrillation (6) Pancytopenia ICD Codes: D61.818 - Other pancytopenia (7) Follicular lymphoma grade I ICD Codes: C82.00 - Follicular lymphoma grade I, unspecified site (8) Hypokalemia ICD Codes: E87.6 - Hypokalemia (9) Anasarca ICD Codes: R60.1 - Generalized edema Status: Acute (Jacki King MD) Problem Qualifiers (1) Congestive heart failure (CHF): Qualified Codes: I50.9 - Heart failure, unspecified Vero Cotton Jul 31, 2017 18:08 Jacki King MD Aug 01, 2017 12:57
--- NOTE | 2017-07-31 18:20 | RADRPT ---
EXAM DATE/TIME: 07/31/2017 17:54 [facility] COMPARISON: CT ABDOMEN & PELVIS W/O CONTRAST, July 15, 2017, 1:36. CHEST SINGLE AP, July 31, 2017, 13:07. INDICATIONS : Short of breath. RADIATION DOSE: 9.49 CTDIvol (mGy) MEDICAL HISTORY : Cardiovascular disease. Multiple sclerosis. TIA x3, Skin cancer, Non Hodgkins lymphoma SURGICAL HISTORY : Pacemaker. Hysterectomy. Vented. ENCOUNTER: Initial ACUITY: 1 day PAIN SCALE: Non-responsive LOCATION: Bilateral chest TECHNIQUE: Volumetric scanning of the chest was performed. Using automated exposure control and adjustment of t he mA and/or kV according to patient size, radiation dose was kept as low as reasonably achievable to obtain optimal diagnostic quality images. DICOM format image data is available electronically for r eview and comparison. Follow-up recommendations for detected pulmonary nodules are based at a minimum on nodule size and pa tient risk factors according to Fleischner Society Guidelines. FINDINGS: LUNGS: There are numerous and various size focal areas of opacity which have a masslike configuration but canales s some central air bronchograms, located in the upper and middle lobes and in the left lower lobe. T here is almost complete consolidation of the right lower lobe with some air bronchograms present. PLEURAE: There is a small right pleural effusion which measures up to 9 mm in thickness and tracts to the mid chest. MEDIASTINUM: Multiple enlarged middle mediastinal lymph nodes, the largest of which is located in the azygos regio n measuring 1.9 cm. Prominent nodes are seen in the AP window and adjacent to the aortic arch. The ascending aorta is calcified and measures 4.1 cm in AP dimension. Marked distention of the inferior vena cava, measuring 4.9 cm. And chamber cardiomegaly. AXILLAE: Within normal limits. No lymphadenopathy. MUSCULOSKELETAL: Diffuse osteopenia. MISCELLANEOUS: Moderate amount of upper abdominal ascites. CONCLUSION: 1. Abnormal appearance the lungs and mediastinum with multiple masslike areas of infiltrate containin g air bronchograms and numerous middle mediastinal enlarged lymph nodes. There is also a small right pleural effusion. Malignant and infectious causes can produce this type of appearance. 2. Marked dilation of the inferior vena cava. Prominent amount of ascites. Dash Carolina MD on July 31, 2017 at 18:10 Board Certified Radiologist. This report was verified electronically.
[2017-07-31 20:11] LABS: INTERNATIONAL NORMALIZED RATIO 4.1 RATIO; PROTHROMBIN TIME - PATIENT 40.8 SEC (9.8-11.6)
[2017-07-31 20:22] LABS: PHOSPHORUS 2.5 MG/DL (2.5-4.9)
[2017-07-31] MEDS: MONTELUKAST SODIUM 10 MG TAB PO SCH (20:23)
[2017-07-31] MEDS: CHLORHEXIDINE 0.12% (ORAL KIT) 15 ML CUP MT SCH (20:24)
[2017-07-31] MEDS: SODIUM CHLORIDE 0.9% FLUSH 10 ML FLUSH IV FLUSH PRN (20:24)
[2017-07-31 23:38] LABS: AMORPHOUS SEDIMENT, URINE RARE; BACTERIA, URINE MOD /hpf; BILIRUBIN, URINE NEG (NEG); BLOOD, URINE TRACE (NEG); GLUCOSE,URINE NEG (NEG); HYALINE CAST, URINE 20 /lpf (RARE); KETONE, URINE NEG (NEG); MUCUS URINE FEW /lpf (OCC); NITRITE,URINE NEG (NEG); PH, URINE 6.5 (5.0-8.5); RENAL EPITHELIAL CELLS 2 /hpf; SQUAMOUS EPITHELIAL CELL URINE 3 /hpf (0-5); TRANSITIONAL EPI CELLS, URINE 2 /hpf; URINE COLOR DARK-YELLOW (YELLW/STRAW); URINE LEUKOCYTE ESTERASE NEG (NEG)
[2017-08-01] VITALS (124 sets, daily range): BP systolic 82–116; BP diastolic 40–68; PULSE 0–61; RESP 11–23; TEMP 97.9–103; O2SAT 86–97
[2017-08-01] MEDS: AZTREONAM INJ 2,000 MG in SODIUM CHLORIDE 0.9% INJ 100 ML IV SCH ×3 (02:19→17:33)
[2017-08-01] MEDS: fentaNYL DRIP 250 ML IV PRN (03:29)
[2017-08-01] MEDS: RESP: ALBUTEROL 2.5 MG/IPRATROPIUM 0.5 MG NEB (SCH) NEB ×5 (03:32→20:00)
[2017-08-01] MEDS ORDERED: SODIUM CHLOR 0.9% 1000 ML INJ 1,000 ML IV ONE (04:30)
[2017-08-01 04:37] LABS: INTERNATIONAL NORMALIZED RATIO 3.7 RATIO; PROTHROMBIN TIME - PATIENT 37.2 SEC (9.8-11.6)
[2017-08-01 04:39] LABS: HEMATOCRIT 28.2 % (35.0-46.0); HEMOGLOBIN 9.7 GM/DL (11.6-15.3); MEAN CELL VOLUME 82.8 FL (80.0-100.0); MEAN CORPUSCULAR HEMOGLOBIN 28.3 PG (27.0-34.0); MEAN CORPUSCULAR HGB CONC 34.2 % (32.0-36.0); MEAN PLATELET VOLUME 10.8 FL (7.0-11.0); PLATELET COUNT 36 TH/MM3 (150-450); RED BLOOD COUNT 3.41 MIL/MM3 (4.00-5.30); RED CELL DISTRIBUTION WIDTH 18.4 % (11.6-17.2); WHITE BLOOD COUNT 0.7 TH/MM3 (4.0-11.0)
[2017-08-01] MEDS: SODIUM CHLOR 0.9% 1000 ML INJ 1,000 ML IV SCH ×2 (04:44→15:17)
[2017-08-01 04:52] LABS: BICARBONATE 30.8 MEQ/L (21.0-32.0); CALCIUM 8.3 MG/DL (8.5-10.1); CREATININE 2.66 MG/DL (0.50-1.00)
[2017-08-01 04:54] LABS: RANDOM VANCOMYCIN 13.4 COMMENT
[2017-08-01] MEDS: INSULIN NovoLIN REGULAR SUPPLEMENTAL SCALE SQ SCH ×4 (05:00→21:48)
[2017-08-01] MEDS: metroNIDAZOLE 500 MG INJ 100 ML IV SCH (06:00)
[2017-08-01] MEDS: ISOSORBIDE MONONITRATE 60 MG CR TAB (IMDUR) PO SCH (07:00)
[2017-08-01 08:12] LABS: BANDS 28 % (0-6); LYMPHOCYTES 10 % (9-44); METAMYELOCYTES 14 % (0-1); MONOCYTES 6 % (0-8); NEUTROPHIL # MANUAL DIFF 0.5 TH/MM3 (1.8-7.7); POLYS (SEG NEUTROPHILS) 24 % (16-70); PROMYELOCYTES 6 % (0-0)
[2017-08-01 08:14] LABS: ACANTHOCYTES 1+ (NORMAL); KERATOCYTES OCC (NORMAL); OVALOCYTES 2+ (NORMAL)
[2017-08-01] MEDS: ONDANSETRON ODT 4 MG TAB PO SCH ×2 (08:22→21:53)
[2017-08-01] MEDS: CHOLECALCIFEROL (VIT D3) 1000 UNIT TAB PO SCH (08:22)
[2017-08-01] MEDS: CHLORHEXIDINE 0.12% (ORAL KIT) 15 ML CUP MT SCH ×2 (08:23→21:48)
[2017-08-01] MEDS: NYSTATIN SUSP 500,000 U/5 ML CUP SWISH-SWAL SCH ×4 (08:23→21:53)
[2017-08-01] MEDS: buPROPion HCL 75 MG TAB PO SCH ×2 (08:23→21:00)
[2017-08-01] MEDS: SODIUM CHLORIDE 0.9% FLUSH 10 ML FLUSH IV FLUSH SCH ×2 (08:23→21:48)
[2017-08-01] MEDS: ALLOPURINOL 300 MG TAB PO SCH (08:23)
[2017-08-01] MEDS: PANTOPRAZOLE SOD 20 MG DELAYED RELEASE TAB PO SCH (08:23)
--- NOTE | 2017-08-01 08:40 | HHI.CCPN ---
Subjective Remarks/Hospital Course Patient is 67-year-old female with past medical history of bronchial asthma, multiple sclerosis, chronic atrial fibrillation, St. Bao aortic valve replacement in 1989, on Coumadin, severe tricuspid regurgitation, hypertension , and follicular lymphoma. She was admitted to [facility] under hospitalist service on 07/23 for worsening edema, shortness of breath, and fluid overload. Patient had a chest x-ray on admission which showed no acute disease; however, she had subsequent chest x-rays since then, and her last chest x-ray from this morning showed bilateral patchy pulmonary infiltrates. 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 No evidence of any acute infarct, hemorrhage or mass effect. She had an echocardiogram on 07/15, which showed ejection fraction of 45% to 50% and severe tricuspid regurgitation. During her hospital course, she was seen by multiple consultants, including hematology service, neurology, cardiology. Patient was transferred to [facility] for worsening respiratory status , and critical care medicine was consulted for critical care management. She had an ABG done on 4 L oxygen this morning, which showed a pH of 7.48, CO2 37, PaO2 64, bicarb 27, and saturation of 91%. Her laboratory data from today showed worsening renal function with creatinine of 1.60 from 1.23 on arrival and hypokalemia with potassium level of 2.9. Her lactic acid level measured at 2.2. She was given Lasix 40 mg IV push earlier today and was started on broad-spectrum antibiotics, aztreonam and vancomycin. In addition, infectious disease service was consulted by the primary team. Patient spiked a fever with temperature of 101.6 at 4:00 this morning. Most of the history was obtained from reviewing the medical records, as patient is a poor historian. 08/01 Patient is intubated and sedated with Fentanyl drip. T:103.1 ax. s/p 3u FFP total INR 3.7 from 12.2. Renal function is worsening with Cr: 2.66 from 2.04. Objective Vital Signs Date Time Temp Pulse Resp B/P (MAP) Pulse Ox O2 Delivery O2 Flow Rate FiO2 08/01/17 08:06 93 70 08/01/17 06:00 60 3/9/18 04:00 103.0 14 102/54 (70) 07/31/17 20:00 Mechanical Ventilator 07/31/17 12:17 15.00 Intake and Output 08/01/17 08/01/17 08/02/17 08:00 16:00 00:00 Intake Total 1451 ml Output Total 801 ml Balance 650 ml Result Diagram: 08/01/17 0320 08/01/17 0320 Other Results Laboratory Tests Test 07/31/17 10:30 07/31/17 10:35 07/31/17 13:30 07/31/17 19:20 Nasal Screen MRSA (PCR) MRSA NOT DETECTED White Blood Count 1.6 TH/MM3 Red Blood Count 3.98 MIL/MM3 Hemoglobin 11.1 GM/DL Hematocrit 32.4 % Mean Corpuscular Volume 81.6 FL Mean Corpuscular Hemoglobin 27.9 PG Mean Corpuscular Hemoglobin Concent 34.2 % Red Cell Distribution Width 18.4 % Platelet Count 78 TH/MM3 Mean Platelet Volume 10.0 FL CBC Comment AUTO DIFF Differential Total Cells Counted 50 Neutrophils % (Manual) 40 % Band Neutrophils % 2 % Lymphocytes % 10 % Monocytes % 16 % Neutrophils # (Manual) 1.1 TH/MM3 Metamyelocytes 22 % Myelocytes 2 % Promyelocytes 4 % Differential Comment FINAL DIFF MANUAL Blastocytes 4 % Toxic Granulation 2+ Platelet Estimate LOW Platelet Morphology Comment NORMAL Ovalocytes 1+ Prothrombin Time 121.0 SEC 40.8 SEC Prothromb Time International Ratio 12.2 RATIO 4.1 RATIO Blood Urea Nitrogen 53 MG/DL Creatinine 2.04 MG/DL Random Glucose 209 MG/DL Calcium Level 8.8 MG/DL Phosphorus Level 1.8 MG/DL 2.5 MG/DL Magnesium Level 2.5 MG/DL Sodium Level 134 MEQ/L Potassium Level 3.3 MEQ/L 3.5 MEQ/L Chloride Level 93 MEQ/L Carbon Dioxide Level 28.2 MEQ/L Anion Gap 13 MEQ/L Estimat Glomerular Filtration Rate 24 ML/MIN Lactic Acid Level 3.5 mmol/L Total Creatine Kinase 18 U/L Troponin I 0.08 NG/ML Blood Gas Puncture Site LT RADIAL Blood Gas Patient Temperature 98.6 Blood Gas HCO3 26 mmol/L Blood Gas Base Excess 1.3 mmol/L Blood Gas Oxygen Saturation 86 % Arterial Blood pH 7.38 Arterial Blood Partial Pressure CO2 45 mmHg Arterial Blood Partial Pressure O2 60 mmHg Arterial Blood Oxygen Content 15.1 Vol % Arterial Blood Carboxyhemoglobin 1.1 % Arterial Blood Methemoglobin 1.3 % Blood Gas Hemoglobin 12.5 G/DL Oxygen Delivery Device VENTILATOR Blood Gas Ventilator Setting A/C 450/14/5PEEP Blood Gas Inspired Oxygen 100 % Test 07/31/17 22:40 08/01/17 03:20 Urine Color DARK-YELLOW Urine Turbidity CLOUDY Urine pH 6.5 Urine Specific [place] 1.019 Urine Protein 100 mg/dL Urine Glucose (UA) NEG mg/dL Urine Ketones NEG mg/dL Urine Occult Blood TRACE Urine Nitrite NEG Urine Bilirubin NEG Urine Urobilinogen LESS THAN 2.0 MG/DL Urine Leukocyte Esterase NEG Urine RBC 9 /hpf Urine WBC 16 /hpf Urine Squamous Epithelial Cells 3 /hpf Urine Transitional Epithelial Cells 2 /hpf Urine Renal Epithelial Cells 2 /hpf Urine Amorphous Sediment RARE Urine Bacteria MOD /hpf Urine Hyaline Casts 20 /lpf Urine Mucus FEW /lpf Microscopic Urinalysis Comment CATH-CULTURE IND White Blood Count 0.7 TH/MM3 Red Blood Count 3.41 MIL/MM3 Hemoglobin 9.7 GM/DL Hematocrit 28.2 % Mean Corpuscular Volume 82.8 FL Mean Corpuscular Hemoglobin 28.3 PG Mean Corpuscular Hemoglobin Concent 34.2 % Red Cell Distribution Width 18.4 % Platelet Count 36 TH/MM3 Mean Platelet Volume 10.8 FL CBC Comment AUTO DIFF Differential Total Cells Counted 50 Neutrophils % (Manual) 24 % Band Neutrophils % 28 % Lymphocytes % 10 % Monocytes % 6 % Eosinophils % 12 % Neutrophils # (Manual) 0.5 TH/MM3 Metamyelocytes 14 % Promyelocytes 6 % Differential Comment FINAL DIFF MANUAL Platelet Estimate LOW Platelet Morphology Comment NORMAL Ovalocytes 2+ Acanthocytes 1+ Keratocytes OCC Prothrombin Time 37.2 SEC Prothromb Time International Ratio 3.7 RATIO Blood Urea Nitrogen 61 MG/DL Creatinine 2.66 MG/DL Random Glucose 137 MG/DL Calcium Level 8.3 MG/DL Sodium Level 137 MEQ/L Potassium Level 3.6 MEQ/L Chloride Level 97 MEQ/L Carbon Dioxide Level 30.8 MEQ/L Anion Gap 9 MEQ/L Estimat Glomerular Filtration Rate 18 ML/MIN Random Vancomycin Level 13.4 COMMENT Imaging Last Impressions Renal Ultrasound 07/31/17 0000 Signed Impressions: Service Date/Time: July 14:25 - CONCLUSION: 1. Abdominal ascites. 2. Both kidneys are sonographically stable and intact. 3. Nonvisualization of the bladder as it is completely decompressed. Salomón Obrien MD Chest X-Ray 07/31/17 Signed Impressions: Service Date/Time: July 13:07 - CONCLUSION: 1. Bilateral masslike airspace disease, right greater than left. Lesion on the left actually appears slightly more prominent when compared to the examination earlier today suggesting an infectious etiology. 2. Interval placement of an endotracheal and nasogastric tubes as above. Both appear to be appropriately positioned. Stable position of the right-sided [id number]-[id number] and left subclavian bipolar pacer 3. Heart size remains prominent. Probable right-sided effusion. Salomón Obrien MD Chest CT 07/31/17 0000 Signed Impressions: Service Date/Time: July 17:54 - CONCLUSION: 1. Abnormal appearance the lungs and mediastinum with multiple masslike areas of infiltrate containing air bronchograms and numerous middle mediastinal enlarged lymph nodes. There is also a small right pleural effusion. Malignant and infectious causes can produce this type of appearance. 2. Marked dilation of the inferior vena cava. Prominent amount of ascites. Dash Carolina MD Thoracic Spine CT 07/24/17 Signed Impressions: Service Date/Time: July 19:38 - CONCLUSION: Degenerative changes throughout the thoracic spine. Multilevel disc bulges and foraminal narrowing as described above. No significant spinal stenosis. No acute compression fracture or subluxation. Jaycob Camara MD Head CT 07/24/17 Signed Impressions: Service Date/Time: July 19:34 - CONCLUSION: Old infarct involving the right frontoparietal region. Old lacunar infarct involving the left cerebellar hemisphere. Moderate periventricular and subcortical white matter small vessel ischemic changes bilaterally. No acute infarct, acute hemorrhage, mass effect or extra-axial fluid collections. Jaycob Camara MD Cervical Spine CT 07/24/17 Signed Impressions: Service Date/Time: July 19:34 - CONCLUSION: 1. Mild spinal stenosis and moderate to severe bilateral foraminal narrowing at C5-6. 2. Mild left neuroforaminal narrowing at C3-4 and mild bilateral foraminal narrowing at C4-5. 3. No acute fracture or prevertebral soft tissue swelling. 1. Jaycob Camara MD Objective Remarks GENERAL: Patient is 67 yo intubated and sedated SKIN: Warm and dry. HEAD: Normocephalic. EYES: No scleral icterus. No injection or drainage. NECK: Supple, trachea midline. No JVD or lymphadenopathy. CARDIOVASCULAR: Regular rate and rhythm without murmurs, gallops, or rubs. RESPIRATORY: Breath sounds equal bilaterally. No accessory muscle use. GASTROINTESTINAL: Abdomen soft, non-tender, nondistended. MUSCULOSKELETAL: No cyanosis, +3 edema. neuro: Sedated, intubated A/P Assessment and Plan 1. VDRF 2. HCAP 3. Pancytopenia. 4. Acute kidney injury. 5. Coagulopathy 6. Chronic atrial fibrillation. 7. Congestive heart failure. 8. Previous St. Bao aortic valve replacement and pacemaker replacement. 9. Hypertension. 10. History of multiple sclerosis. 11. History of bronchial asthma. 12. History of follicular lymphoma status post chemotherapy. 13. Pancytopenia. Plan Neuro: On Fentnayl infusion for sedation. Monitor neuro status. Daily sedation vacation when appropriate CT brain on 07/24,showed old infarcts involving right frontoparietal region and old lacunar infarct involving the left cerebellar hemisphere. Neuro is following- Dr. Lorenzana s/p Solu-Medrol 125 mg q.6 from 07/25 to . Pulm: Continue with vent support keep sat > 92%. On ACV RR 14, TV 450, PEEP:10, FIO2 70%. Decrease FIO2 as tacho. Bronchodilators, ICU vent bundle. Check ABG Place on stress dose steroids- HC 50mg IV Q6 CV: Monitor HR and BP and maintain MAP>65 mmHg. Check Lactic acid Echo from 07/15 showed severe TR, EF 45% to 50%. Dr. Devine from cardiology is following. For echo Continue IVF NS@100ml/hr :Monitor renal function, I's and O's, and avoid nephrotoxins. Cr: 2.66 from 2.04, renal is following-Dr. King Continue IV hydration, off diuretics. Renal US: No hydronephrosis, small ascites GI: On Protonix for GI prophylaxis. Start tube feeds- Nepro with goal rate 40ml/hr ID: Abx per ID ( Azactam, Vanco) Monitor for signs of infection( fever and WBC) Strep pneumonia, Legionella urinary Ag, nasal washing for Influenza all negative on 07/31 Follow up on blood, sputum and urine cxs Heme: Monitor CBC, coags. Heme is following for pancytopenia, on Neupogen. s/p 3u FFP INR 3.7 today from 12.2 yesterday Endo: SSI with Accu-Chek for glycemic control. TSH level: 2.83. GI prophylaxis with Protonix and DVT prophylaxis with SCDs. Chemical anticoagulation prophylaxis contraindicated. Lines: Right-sided infusaport in place. Palliative care is following Patient is critically ill with reps failure, acute renal failure, pneumonia, pancytopenia and with severe TR, Prognosis guarded. CCT 40 mins Gerardo Robledo MD Aug 01, 2017 08:40
--- NOTE | 2017-08-01 09:56 | PD.ONC.PN ---
Subjective Subjective Remarks Tmax 103F overnight. Patient remains intubated, sedated. Objective Data Date Time Temp Pulse Resp B/P (MAP) Pulse Ox O2 Delivery O2 Flow Rate FiO2 08/01/17 08:06 93 70 08/01/17 06:00 60 08/01/17 04:00 70 08/01/17 04:00 103.0 59 14 102/54 (70) 95 08/01/17 04:00 60 08/01/17 03:32 92 70 08/01/17 02:00 60 08/01/17 00:46 97 70 08/01/17 00:00 70 08/01/17 00:00 60 08/01/17 00:00 60 15 92/55 (67) 96 07/31/17 23:45 102.0 60 18 100/50 (67) 94 07/31/17 23:30 102.0 60 19 92/53 (66) 94 07/31/17 23:15 60 31 95/53 (67) 92 07/31/17 23:00 100.1 60 27 105/52 (69) 90 07/31/17 22:00 60 07/31/17 21:36 93 70 07/31/17 20:15 91 70 07/31/17 20:00 94 Mechanical Ventilator 30 07/31/17 20:00 70 07/31/17 20:00 99.0 60 15 91/49 (63) 96 07/31/17 20:00 60 07/31/17 18:30 60 07/31/17 18:26 60 07/31/17 18:25 60 07/31/17 18:22 60 07/31/17 18:20 60 07/31/17 18:15 60 07/31/17 18:10 60 07/31/17 18:09 60 07/31/17 18:08 60 07/31/17 18:00 60 07/31/17 17:55 99 60 07/31/17 17:36 60 07/31/17 17:30 60 07/31/17 16:00 60 07/31/17 15:00 59 15 122/59 (80) 92 07/31/17 14:19 100.1 59 22 122/59 90 07/31/17 14:01 99.0 59 33 122/59 90 07/31/17 13:45 87 60 07/31/17 13:35 101.0 60 33 109/54 87 07/31/17 13:18 100.7 60 27 109/54 90 07/31/17 12:55 97 100 07/31/17 12:30 100 07/31/17 12:17 94 Non-Rebreather 15.00 07/31/17 12:00 60 07/31/17 11:00 99.1 60 29 109/54 (72) 97 07/31/17 10:00 62 08/01/17 08/01/17 08/01/17 07:00 15:00 23:00 Intake Total 2167 ml Output Total 801 ml Balance 1366 ml Result Diagram: 08/01/17 0320 08/01/17 0320 Laboratory Results Laboratory Tests Test 07/31/17 10:30 07/31/17 10:35 07/31/17 13:30 07/31/17 19:20 Nasal Screen MRSA (PCR) MRSA NOT DETECTED White Blood Count 1.6 TH/MM3 Red Blood Count 3.98 MIL/MM3 Hemoglobin 11.1 GM/DL Hematocrit 32.4 % Mean Corpuscular Volume 81.6 FL Mean Corpuscular Hemoglobin 27.9 PG Mean Corpuscular Hemoglobin Concent 34.2 % Red Cell Distribution Width 18.4 % Platelet Count 78 TH/MM3 Mean Platelet Volume 10.0 FL CBC Comment AUTO DIFF Differential Total Cells Counted 50 Neutrophils % (Manual) 40 % Band Neutrophils % 2 % Lymphocytes % 10 % Monocytes % 16 % Neutrophils # (Manual) 1.1 TH/MM3 Metamyelocytes 22 % Myelocytes 2 % Promyelocytes 4 % Differential Comment FINAL DIFF MANUAL Blastocytes 4 % Toxic Granulation 2+ Platelet Estimate LOW Platelet Morphology Comment NORMAL Ovalocytes 1+ Prothrombin Time 121.0 SEC 40.8 SEC Prothromb Time International Ratio 12.2 RATIO 4.1 RATIO Blood Urea Nitrogen 53 MG/DL Creatinine 2.04 MG/DL Random Glucose 209 MG/DL Calcium Level 8.8 MG/DL Phosphorus Level 1.8 MG/DL 2.5 MG/DL Magnesium Level 2.5 MG/DL Sodium Level 134 MEQ/L Potassium Level 3.3 MEQ/L 3.5 MEQ/L Chloride Level 93 MEQ/L Carbon Dioxide Level 28.2 MEQ/L Anion Gap 13 MEQ/L Estimat Glomerular Filtration Rate 24 ML/MIN Lactic Acid Level 3.5 mmol/L Total Creatine Kinase 18 U/L Troponin I 0.08 NG/ML Blood Gas Puncture Site LT RADIAL Blood Gas Patient Temperature 98.6 Blood Gas HCO3 26 mmol/L Blood Gas Base Excess 1.3 mmol/L Blood Gas Oxygen Saturation 86 % Arterial Blood pH 7.38 Arterial Blood Partial Pressure CO2 45 mmHg Arterial Blood Partial Pressure O2 60 mmHg Arterial Blood Oxygen Content 15.1 Vol % Arterial Blood Carboxyhemoglobin 1.1 % Arterial Blood Methemoglobin 1.3 % Blood Gas Hemoglobin 12.5 G/DL Oxygen Delivery Device VENTILATOR Blood Gas Ventilator Setting A/C 450/14/5PEEP Blood Gas Inspired Oxygen 100 % Test 07/31/17 22:40 08/01/17 03:20 08/01/17 08:09 Urine Color DARK-YELLOW Urine Turbidity CLOUDY Urine pH 6.5 Urine Specific [place] 1.019 Urine Protein 100 mg/dL Urine Glucose (UA) NEG mg/dL Urine Ketones NEG mg/dL Urine Occult Blood TRACE Urine Nitrite NEG Urine Bilirubin NEG Urine Urobilinogen LESS THAN 2.0 MG/DL Urine Leukocyte Esterase NEG Urine RBC 9 /hpf Urine WBC 16 /hpf Urine Squamous Epithelial Cells 3 /hpf Urine Transitional Epithelial Cells 2 /hpf Urine Renal Epithelial Cells 2 /hpf Urine Amorphous Sediment RARE Urine Bacteria MOD /hpf Urine Hyaline Casts 20 /lpf Urine Mucus FEW /lpf Microscopic Urinalysis Comment CATH-CULTURE IND White Blood Count 0.7 TH/MM3 Red Blood Count 3.41 MIL/MM3 Hemoglobin 9.7 GM/DL Hematocrit 28.2 % Mean Corpuscular Volume 82.8 FL Mean Corpuscular Hemoglobin 28.3 PG Mean Corpuscular Hemoglobin Concent 34.2 % Red Cell Distribution Width 18.4 % Platelet Count 36 TH/MM3 Mean Platelet Volume 10.8 FL CBC Comment AUTO DIFF Differential Total Cells Counted 50 Neutrophils % (Manual) 24 % Band Neutrophils % 28 % Lymphocytes % 10 % Monocytes % 6 % Eosinophils % 12 % Neutrophils # (Manual) 0.5 TH/MM3 Metamyelocytes 14 % Promyelocytes 6 % Differential Comment FINAL DIFF MANUAL Platelet Estimate LOW Platelet Morphology Comment NORMAL Ovalocytes 2+ Acanthocytes 1+ Keratocytes OCC Prothrombin Time 37.2 SEC Prothromb Time International Ratio 3.7 RATIO Blood Urea Nitrogen 61 MG/DL Creatinine 2.66 MG/DL Random Glucose 137 MG/DL Calcium Level 8.3 MG/DL Sodium Level 137 MEQ/L Potassium Level 3.6 MEQ/L Chloride Level 97 MEQ/L Carbon Dioxide Level 30.8 MEQ/L Anion Gap 9 MEQ/L Estimat Glomerular Filtration Rate 18 ML/MIN Random Vancomycin Level 13.4 COMMENT Culture Results Microbiology Date/Time Source Procedure Growth Status 07/31/17 00:05 Blood Peripheral Aerobic Blood Culture Pending Received 07/31/17 00:05 Blood Peripheral Anaerobic Blood Culture Pending Received 07/31/17 00:00 Blood Peripheral Aerobic Blood Culture Pending Received 07/31/17 00:00 Blood Peripheral Anaerobic Blood Culture Pending Received 08/01/17 08:33 Sputum Expectorated Sputum Gram Stain Pending Received 08/01/17 08:33 Sputum Expectorated Sputum Sputum Culture Pending Received 07/31/17 23:30 Sputum Endotracheal Gram Stain - Final Resulted 07/31/17 23:30 Sputum Endotracheal Sputum Culture Pending Resulted 07/31/17 12:21 Nasal Washing Influenza Types A,B Antigen (JENNIE) - Final NEGATIVE FOR FLU A AND B ANTIGEN.... Complete 07/31/17 22:40 Urine Catheterized Urine Urine Culture Pending Received 07/31/17 10:50 Urine Catheterized Urine Legionella Antigen - Final PRESUMPTIVE NEGATIVE FOR LEGIONELLA P... Complete 07/31/17 10:50 Urine Catheterized Urine Streptococcus pneumoniae Antigen (M - Final PRESUMPTIVE NEGATIVE FOR STREPTOCOCCU... Complete 07/31/17 01:50 Urine Clean Catch Urine Culture Pending Received Administered Medications Medications (Trade) Dose Ordered Sig/Love Route PRN Reason Start Time Stop Time Status Last Admin Dose Admin Sodium Chloride (NS Flush) 2 ml BID IV FLUSH 07/23/17 21:00 08/01/17 08:23 Sodium Chloride (NS Flush) 2 ml UNSCH PRN IV FLUSH FLUSH AFTER USING IV ACCESS 07/23/17 20:30 07/31/17 20:24 Allopurinol (Zyloprim) 300 mg DAILY PO 07/24/17 09:00 08/01/17 08:23 Cholecalciferol (Vitamin D3) 2,000 units DAILY PO 07/24/17 09:00 08/01/17 08:22 Acetaminophen/ Hydrocodone Bitart (Early 5-325 Mg) 1 tab Q6H PRN PO PAIN 07/23/17 20:30 07/28/17 21:53 Montelukast Sodium (Singulair) 10 mg HS PO 07/23/17 21:00 07/31/17 20:23 Ondansetron HCl (Zofran Odt) 4 mg BID PO 07/23/17 21:00 08/01/17 08:22 Warfarin Sodium (Coumadin) 6 mg DAILY@1600 PO 07/24/17 16:00 Future Hold 07/29/17 16:53 Bupropion HCl (Wellbutrin) 75 mg Q12HR PO 07/27/17 21:00 07/31/17 08:55 Nystatin (Mycostatin Liq) 5 ml QID SWISH-SWAL 07/27/17 21:00 08/01/17 08:23 Aztreonam 2000 mg/ Sodium Chloride 100 ml @ 200 mls/hr Q8H IV 07/31/17 02:00 08/01/17 02:19 Albuterol/ Ipratropium (Duoneb Neb) 1 ampule Q4HR NEB NEB 07/31/17 12:00 08/01/17 08:05 Sodium Chloride 1,000 ml @ 100 mls/hr Q10H IV 07/31/17 12:15 08/01/17 04:44 Chlorhexidine Gluconate (Peridex 0.12% Liq) 15 ml BID@08,20 MT 07/31/17 20:00 08/01/17 08:23 Fentanyl Citrate 250 ml @ 5 mls/hr TITRATE PRN IV SEDATION 07/31/17 13:00 08/01/17 03:29 Propofol 100 ml @ 3.213 mls/ hr TITRATE PRN IV SEDATION 07/31/17 13:45 07/31/17 15:09 Objective Remarks GENERAL: Intubated, sedated female, supine in hospital bed. SKIN: Warm and dry. HEAD: Normocephalic. EYES: No injection or drainage. NECK: Supple, trachea midline. CARDIOVASCULAR: +S1/S2 RESPIRATORY: scattered rhonchi. on mechanical ventilation. GASTROINTESTINAL: Abdomen distended. EXTREMITIES: No cyanosis. NEUROLOGICAL: intubated, sedated. Assessment/Plan Problem List: (1) Pancytopenia ICD Codes: D61.818 - Other pancytopenia Plan: --due to underlying liver disease/cirrhosis and splenomegaly, now likely also a component of DIC --increase Neupogen to 480mcg today, 3/9 --hemoglobin and platelet count are relatively stable. (2) Follicular lymphoma grade I ICD Codes: C82.00 - Follicular lymphoma grade I, unspecified site Plan: --Follicular lymphoma grade 1. --completed 4 cycles Rituxan and bendamustine in March 2017-->PET scan showed a good response and resolution of the hypermetabolic uptake in the abdominal lymph node. ------started on maintenance Rituxan. last dose was early June. no evidence of recurrent disease. (3) Congestive heart failure (CHF) ICD Codes: I50.9 - Heart failure, unspecified Status: Acute Plan: --was possible transfer to [facility], evaluated by Cardiothoracic Surgery for possible surgical repair, now intubated in [facility], critically ill. -- has a history of aortic valve replacement. --was recently found to have severe tricuspid valve regurgitation. (4) Respiratory failure ICD Codes: J96.90 - Respiratory failure, unspecified, unspecified whether with hypoxia or hypercapnia Plan: --intubated, managed by critical care. Assessment 67y/o female with lymphoma and pancytopenia. h/o Follicular lymphoma grade 1. Diabetes mellitus. Transient ischemic attack. Chronic atrial fibrillation. Valvular disease. Hypertension. Gout. Asthma. Nephrolithiasis. Multiple sclerosis. Questionable cirrhosis with splenomegaly.Pancytopenia. HPI (brought forward for continuity of care): history of grade 1 follicular lymphoma, completed chemotherapy in March 2017, readmitted to hospital with increased shortness of breath and edema. was just discharged from the hospital earlier this week for symptomatic bradycardia, dizziness, hypertension. During the hospital stay, she was also found to have anasarca. She had significant ascites and had GI workup including paracentesis, which did not show any malignancy. She said when she went home, she felt well for a day.By Friday afternoon, she had increased lower extremity weakness. She also has a shuffling gait. She said that she swelled up, and the diuretic does not seem to work. She came back to the hospital. She has been having chest pain. She has PND and orthopnea. Plan 1. increase Neupogen to 480mcg today 2. monitor CBC 3. check fibrinogen, PTT Attending Statement The exam, history, and the medical decision-making described in the above note were completed with the assistance of the mid-level provider. I reviewed and agree with the findings presented. I attest that I had a [id number] encounter with the patient on the same day, and personally performed and documented my assessment and findings in the medical record. Events noted. Pt is now intubated and sedated. Had fever up to 103. Reviewed CT chest which showed mass like consolidation and mediastinal LAD which I think is infectious etiology. I do not think this is due to lymphoma. CBC has trended lower due to DIC. Check DIC panel and may need cryoprecipitate transfusion. Increase neupogen to 480mcg. Problem Qualifiers (1) Congestive heart failure (CHF): Qualified Codes: I50.9 - Heart failure, unspecified Yokasta Andrew Aug 01, 2017 09:55 Lane Mayberry MD Aug 01, 2017 10:21
[2017-08-01] MEDS ORDERED: PANTOPRAZOLE SODIUM 40 MG VIAL IV PUSH SCH (10:00)
[2017-08-01] MEDS ORDERED: ASP: Documented allergy to Penicillins or Cephalosporins PRN (10:15)
[2017-08-01] MEDS ORDERED: MISCELLANEOUS PHARMACY INFORMATION XX PRN (10:15)
--- NOTE | 2017-08-01 10:17 | HHI.IDPN ---
Subjective Subjective Remarks Patient is a 67-year-old female, patient is to the hospital for evaluation of worsening shortness of breath, and worsening edema. Patient has prior history of aortic valve replacement and severe tricuspid regurgitation, CHF and has had problem with lower extremity edema as well as ascites. She apparently had underwent paracenteses with some improvement, however on the day of admission she had developed increasing edema, and worsening shortness of breath. She presented to the hospital, and admitted for further evaluation and treatment. Patient's shortness of breath has stabilized. She had some diuresis. Cardiothoracic surgery evaluated her, and she was being referred to [facility] for surgical repair of her open TR. Over the last 2 days she has developed increasing shortness of breath, and her chest x-ray yesterday is showing some new bilateral infiltrates. She also started having fevers yesterday. This morning her respiratory status deteriorated, so she was transferred to the intensive care unit and intubated. Infectious disease consultation has been requested to evaluate the patient with new bilateral infiltrates and fever. Notes reviewed D/W RN Temps up to 103 Worsening neutropenia and thrombocytopenia On pressors On the vent, FiO2 at 0.7 Worsening renal function One BC with GNR Second BC with GPC Seen by palliative medicine - full code Antibiotics Current Medications Azactam Vancomycin Medications (Trade) Dose Ordered Sig/Love Route Start Time Stop Time Status Last Admin (NS Flush) 2 ml BID IV FLUSH 07/23/17 21:00 08/01/17 08:23 (NS Flush) 2 ml UNSCH PRN IV FLUSH 07/23/17 20:30 07/31/17 20:24 (Zyloprim) 300 mg DAILY PO 07/24/17 09:00 08/01/17 08:23 (Vitamin D3) 2,000 units DAILY PO 07/24/17 09:00 08/01/17 08:22 (Tal[place]ott 5-325 Mg) 1 tab Q6H PRN PO 07/23/17 20:30 07/28/17 21:53 (Pravachol) 10 mg 2XWEEK PO 07/24/17 09:00 (Singulair) 10 mg HS PO 07/23/17 21:00 07/31/17 20:23 (Zofran Odt) 4 mg BID PO 07/23/17 21:00 08/01/17 08:22 (Coumadin) 6 mg DAILY@1600 PO 07/24/17 16:00 Future Hold 07/29/17 16:53 (Dulcolax Supp) 10 mg DAILY PRN RECTAL 07/27/17 01:30 (Wellbutrin) 75 mg Q12HR PO 07/27/17 21:00 07/31/17 08:55 (Mycostatin Liq) 5 ml QID SWISH-SWAL 07/27/17 21:00 08/01/17 08:23 Aztreonam 2000 mg/ Sodium Chloride 100 ml @ 200 mls/hr Q8H IV 07/31/17 02:00 08/01/17 02:19 Pharmacy Profile Note 0 ml @ 0 mls/hr UNSCH OTHER 07/31/17 01:45 Pharmacy Profile Note 0 ml @ 0 mls/hr UNSCH OTHER 07/31/17 10:00 (Duoneb Neb) 1 ampule Q2HR NEB PRN NEB 07/31/17 10:30 (Duoneb Neb) 1 ampule Q4HR NEB NEB 07/31/17 12:00 08/01/17 08:05 (D50w (Vial) Inj) 50 ml UNSCH PRN IV PUSH 07/31/17 11:00 (Glucagon Inj) 1 mg UNSCH PRN OTHER 07/31/17 11:00 (NovoLIN R SUPPLEMENTAL SCALE) 1 Q6H SQ 07/31/17 11:00 Sodium Chloride 1,000 ml @ 100 mls/hr Q10H IV 07/31/17 12:15 08/01/17 04:44 (Peridex 0.12% Liq) 15 ml BID@08,20 MT 07/31/17 20:00 08/01/17 08:23 Fentanyl Citrate 250 ml @ 5 mls/hr TITRATE PRN IV 07/31/17 13:00 08/01/17 03:29 Propofol 100 ml @ 3.213 mls/ hr TITRATE PRN IV 07/31/17 13:45 07/31/17 15:09 Filgrastim 480 mcg/Dextrose 51.6 ml @ 100 mls/hr DAILY@14 IV 08/01/17 14:00 Vancomycin HCl 1500 mg/Sodium Chloride 515 ml @ 250 mls/hr ONCE ONCE IV 08/01/17 12:00 08/01/17 14:03 (Protonix Inj) 40 mg Q24H IV PUSH 08/01/17 10:00 Lines Port Past Medical History Bradycardia status post pacemaker placement Non Hodgkin's lymphoma Liver cirrhosis Rheumatic heart disease Atrial fibrillation CHF History of CVA Kidney stone Gout Asthma Multiple sclerosis Chronic pancytopenia Past Surgical History Aortic Valve Replacement Pacemaker Appendectomy Left Oophorectomy, Hysterectomy Cholecystectomy Allergies: Coded Allergies: ampicillin (Verified Allergy, Severe, Hives, 07/23/17) aspirin (Verified Allergy, Severe, Hives, 07/23/17) cashew nut (Verified Allergy, Severe, Anaphylaxis, 07/23/17) ciprofloxacin (Verified Allergy, Severe, Hives, 07/23/17) doxycycline (Verified Allergy, Severe, Anaphylaxis, 07/23/17) erythromycin base (Verified Allergy, Severe, Anaphylaxis, 07/23/17) iodine (Verified Allergy, Severe, Shortness of Breath, 07/23/17) minocycline (Verified Allergy, Severe, Anaphylaxis, 07/23/17) morphine (Verified Allergy, Severe, Anaphylaxis, 07/23/17) penicillin G (Verified Allergy, Severe, Hives, 07/23/17) potassium iodide (Verified Allergy, Severe, Shortness of Breath, 07/23/17) povidone-iodine (Verified Allergy, Severe, Shortness of Breath, 07/23/17) sodium iodide (Verified Allergy, Severe, Shortness of Breath, 07/23/17) sodium iodide (Verified Allergy, Severe, Shortness of Breath, 07/23/17) tigecycline (Verified Allergy, Severe, Anaphylaxis, 07/23/17) bee venom protein (honey bee) (Verified Allergy, Unknown, Shortness of Breath, 07/23/17) cephalexin (Verified Allergy, Unknown, Hives, 07/23/17) codeine (Verified Allergy, Unknown, Hives, 07/23/17) diclofenac (Verified Allergy, Unknown, Hives, 07/23/17) etodolac (Verified Allergy, Unknown, Hives, 07/23/17) flurbiprofen (Verified Allergy, Unknown, Hives, 07/23/17) gentamicin (Verified Allergy, Unknown, Hives, 07/23/17) indomethacin (Verified Allergy, Unknown, Hives, 07/23/17) ketoprofen (Verified Allergy, Unknown, Hives, 07/23/17) ketorolac (Verified Allergy, Unknown, Hives, 07/23/17) metronidazole (Verified Allergy, Unknown, Hives, 07/23/17) naproxen (Verified Allergy, Unknown, Hives, 07/23/17) oxaprozin (Verified Allergy, Unknown, Hives, 07/23/17) oxycodone (Verified Allergy, Unknown, Hives, 07/23/17) propoxyphene (Verified Allergy, Unknown, Hives, 07/23/17) Uncoded Allergies: KEFLIN (Allergy, Severe, Hives, 12/16/16) Objective . Vital Signs Date Time Temp Pulse Resp B/P (MAP) Pulse Ox O2 Delivery O2 Flow Rate FiO2 08/01/17 08:06 93 70 08/01/17 06:00 60 08/01/17 04:00 70 08/01/17 04:00 103.0 59 14 102/54 (70) 95 08/01/17 04:00 60 08/01/17 03:32 92 70 08/01/17 02:00 60 08/01/17 00:46 97 70 08/01/17 00:00 70 08/01/17 00:00 60 08/01/17 00:00 60 15 92/55 (67) 96 07/31/17 23:45 102.0 60 18 100/50 (67) 94 07/31/17 23:30 102.0 60 19 92/53 (66) 94 07/31/17 23:15 60 31 95/53 (67) 92 07/31/17 23:00 100.1 60 27 105/52 (69) 90 07/31/17 22:00 60 07/31/17 21:36 93 70 07/31/17 20:15 91 70 07/31/17 20:00 94 Mechanical Ventilator 30 07/31/17 20:00 70 07/31/17 20:00 99.0 60 15 91/49 (63) 96 07/31/17 20:00 60 07/31/17 18:30 60 07/31/17 18:26 60 07/31/17 18:25 60 07/31/17 18:22 60 07/31/17 18:20 60 07/31/17 18:15 60 07/31/17 18:10 60 07/31/17 18:09 60 07/31/17 18:08 60 07/31/17 18:00 60 07/31/17 17:55 99 60 07/31/17 17:36 60 07/31/17 17:30 60 07/31/17 16:00 60 07/31/17 15:00 59 15 122/59 (80) 92 07/31/17 14:19 100.1 59 22 122/59 90 07/31/17 14:01 99.0 59 33 122/59 90 07/31/17 13:45 87 60 07/31/17 13:35 101.0 60 33 109/54 87 07/31/17 13:18 100.7 60 27 109/54 90 07/31/17 12:55 97 100 07/31/17 12:30 100 07/31/17 12:17 94 Non-Rebreather 15.00 07/31/17 12:00 60 07/31/17 11:00 99.1 60 29 109/54 (72) 97 07/31/17 10:00 62 . Laboratory Tests Test 07/31/17 00:00 07/31/17 10:35 08/01/17 03:20 White Blood Count 2.2 TH/MM3 1.6 TH/MM3 0.7 TH/MM3 Red Blood Count 4.11 MIL/MM3 3.98 MIL/MM3 3.41 MIL/MM3 Hemoglobin 11.6 GM/DL 11.1 GM/DL 9.7 GM/DL Hematocrit 33.7 % 32.4 % 28.2 % Mean Corpuscular Volume 81.9 FL 81.6 FL 82.8 FL Mean Corpuscular Hemoglobin 28.1 PG 27.9 PG 28.3 PG Mean Corpuscular Hemoglobin Concent 34.3 % 34.2 % 34.2 % Red Cell Distribution Width 18.0 % 18.4 % 18.4 % Platelet Count 87 TH/MM3 78 TH/MM3 36 TH/MM3 Mean Platelet Volume 9.8 FL 10.0 FL 10.8 FL CBC Comment AUTO DIFF AUTO DIFF AUTO DIFF Differential Total Cells Counted 100 50 50 Neutrophils % (Manual) 50 % 40 % 24 % Band Neutrophils % 3 % 2 % 28 % Lymphocytes % 14 % 10 % 10 % Monocytes % 12 % 16 % 6 % Other Cells % 8 % Neutrophils # (Manual) 1.5 TH/MM3 1.1 TH/MM3 0.5 TH/MM3 Metamyelocytes 6 % 22 % 14 % Myelocytes 6 % 2 % Promyelocytes 1 % 4 % 6 % Differential Comment FINAL DIFF MANUAL FINAL DIFF MANUAL FINAL DIFF MANUAL Toxic Granulation 2+ 2+ Toxic Vacuolation PRESENT Platelet Estimate LOW LOW LOW Platelet Morphology Comment NORMAL NORMAL NORMAL Ovalocytes 1+ 1+ 2+ Blastocytes 4 % Eosinophils % 12 % Acanthocytes 1+ Keratocytes OCC Laboratory Tests Test 07/31/17 00:00 07/31/17 02:53 07/31/17 10:35 07/31/17 19:20 Blood Urea Nitrogen 43 MG/DL 53 MG/DL Creatinine 1.60 MG/DL 2.04 MG/DL Random Glucose 245 MG/DL 209 MG/DL Total Protein 5.5 GM/DL Albumin 2.3 GM/DL Calcium Level 9.1 MG/DL 8.8 MG/DL Alkaline Phosphatase 84 U/L Aspartate Amino Transf (AST/SGOT) 16 U/L Alanine Aminotransferase (ALT/SGPT) 14 U/L Total Bilirubin 1.5 MG/DL Sodium Level 133 MEQ/L 134 MEQ/L Potassium Level 2.9 MEQ/L 3.3 MEQ/L 3.5 MEQ/L Chloride Level 93 MEQ/L 93 MEQ/L Carbon Dioxide Level 28.9 MEQ/L 28.2 MEQ/L Anion Gap 11 MEQ/L 13 MEQ/L Estimat Glomerular Filtration Rate 32 ML/MIN 24 ML/MIN Lactic Acid Level 2.4 mmol/L 2.2 mmol/L 3.5 mmol/L Phosphorus Level 1.8 MG/DL 2.5 MG/DL Magnesium Level 2.5 MG/DL Total Creatine Kinase 18 U/L Troponin I 0.08 NG/ML Test 08/01/17 03:20 Blood Urea Nitrogen 61 MG/DL Creatinine 2.66 MG/DL Random Glucose 137 MG/DL Calcium Level 8.3 MG/DL Sodium Level 137 MEQ/L Potassium Level 3.6 MEQ/L Chloride Level 97 MEQ/L Carbon Dioxide Level 30.8 MEQ/L Anion Gap 9 MEQ/L Estimat Glomerular Filtration Rate 18 ML/MIN Microbiology Date/Time Source Procedure Growth Status 07/31/17 00:05 Blood Peripheral Aerobic Blood Culture Pending Received 07/31/17 00:05 Blood Peripheral Anaerobic Blood Culture Pending Received 07/31/17 00:00 Blood Peripheral Aerobic Blood Culture Pending Received 07/31/17 00:00 Blood Peripheral Anaerobic Blood Culture Pending Received 08/01/17 08:33 Sputum Expectorated Sputum Gram Stain Pending Received 08/01/17 08:33 Sputum Expectorated Sputum Sputum Culture Pending Received 07/31/17 23:30 Sputum Endotracheal Gram Stain - Final Resulted 07/31/17 23:30 Sputum Endotracheal Sputum Culture Pending Resulted 07/31/17 12:21 Nasal Washing Influenza Types A,B Antigen (JENNIE) - Final NEGATIVE FOR FLU A AND B ANTIGEN.... Complete 07/31/17 22:40 Urine Catheterized Urine Urine Culture Pending Received 07/31/17 10:50 Urine Catheterized Urine Legionella Antigen - Final PRESUMPTIVE NEGATIVE FOR LEGIONELLA P... Complete 07/31/17 10:50 Urine Catheterized Urine Streptococcus pneumoniae Antigen (M - Final PRESUMPTIVE NEGATIVE FOR STREPTOCOCCU... Complete 07/31/17 01:50 Urine Clean Catch Urine Culture Pending Received Imaging Last Impressions Renal Ultrasound 07/31/17 0000 Signed Impressions: Service Date/Time: July 14:25 - CONCLUSION: 1. Abdominal ascites. 2. Both kidneys are sonographically stable and intact. 3. Nonvisualization of the bladder as it is completely decompressed. Salomón Obrien MD Chest X-Ray 07/31/17 0000 Signed Impressions: Service Date/Time: July 13:07 - CONCLUSION: 1. Bilateral masslike airspace disease, right greater than left. Lesion on the left actually appears slightly more prominent when compared to the examination earlier today suggesting an infectious etiology. 2. Interval placement of an endotracheal and nasogastric tubes as above. Both appear to be appropriately positioned. Stable position of the right-sided Mdckcw-n-Anem and left subclavian bipolar pacer 3. Heart size remains prominent. Probable right-sided effusion. Salomón Obrien MD Chest CT 07/31/17 0000 Signed Impressions: Service Date/Time: July 17:54 - CONCLUSION: 1. Abnormal appearance the lungs and mediastinum with multiple masslike areas of infiltrate containing air bronchograms and numerous middle mediastinal enlarged lymph nodes. There is also a small right pleural effusion. Malignant and infectious causes can produce this type of appearance. 2. Marked dilation of the inferior vena cava. Prominent amount of ascites. Dash Carolina MD Thoracic Spine CT 07/24/17 Signed Impressions: Service Date/Time: July 19:38 - CONCLUSION: Degenerative changes throughout the thoracic spine. Multilevel disc bulges and foraminal narrowing as described above. No significant spinal stenosis. No acute compression fracture or subluxation. Jaycob Camara MD Head CT 07/24/17 Signed Impressions: Service Date/Time: July 19:34 - CONCLUSION: Old infarct involving the right frontoparietal region. Old lacunar infarct involving the left cerebellar hemisphere. Moderate periventricular and subcortical white matter small vessel ischemic changes bilaterally. No acute infarct, acute hemorrhage, mass effect or extra-axial fluid collections. Jaycob Camara MD Cervical Spine CT 07/24/17 Signed Impressions: Service Date/Time: July 19:34 - CONCLUSION: 1. Mild spinal stenosis and moderate to severe bilateral foraminal narrowing at C5-6. 2. Mild left neuroforaminal narrowing at C3-4 and mild bilateral foraminal narrowing at C4-5. 3. No acute fracture or prevertebral soft tissue swelling. 1. Jaycob Camara MD Physical Exam GENERAL: sedated on the vent, not in respiratory distress. SKIN: Warm and dry. No generalized rash, no ecchymoses and no evidence of embolic lesions. HEAD: Atraumatic. Normocephalic. No temporal wasting, or tenderness. EYES: Pale pink conjunctiva. Has some hemorrhage in her L eye. No petechia. Pupils equal, round and reactive to light. No scleral icterus. EARS, NOSE AND THROAT: Nose without bleeding or purulent nasal discharge. She is orally intubated. Dry oral mucosa NECK: Trachea midline. Supple and not tender, no meningeal signs CARDIOVASCULAR: Regular rate and rhythm. No rub. Pacemaker looks okay RESPIRATORY: Coarse breath sounds bilaterally, decreased at the bases, with rhonchi worse on the right side than on the left side. ABDOMEN: Soft, non-tender, nondistended. Bowel sounds present and normoactive. No guarding. No rebound. No organomegaly. EXTREMITIES: No clubbing, cyanosis. Bilateral pitting edema. She has thickened skin in both legs with some nodular areas double with patients having chronic lower extremity edema. Well perfused and warm. NEUROLOGICAL: Sedated PSYCHIATRIC: Unable to assess LINE: No evidence of infection Assessment & Plan Remarks IMPRESSION New bilateral infiltrates, fairly acute, ?pulmonary edema - ?PNA, ?aspiration, ?septic emboli GNR and GPC sepsis Respiratory failure Fevers Worsening renal function Pancytopenia S/P AVR, open wide TR Multiple Abx allergies (PCN, Cephalosporins, flagyl, quinolones, macrolides, doxycyline) Known MS RECOMMENDATION Continue Azactam Add Meropenem - monitor for allergic reaction Continue Vancomcyin Repeat BC Follow C/S Monitor progress Very difficult management due to her multiple Abx allergies D/W Victoria Castelan MD Aug 01, 2017 10:17
[2017-08-01] MEDS: MEROPENEM INJ 500 MG in SODIUM CHLORIDE 0.9% INJ 100 ML IV SCH ×2 (11:51→21:53)
[2017-08-01] MEDS ORDERED: VANCOMYCIN INJ 1,500 MG in SODIUM CHLORID 0.9% 500 ML INJ 500 ML IV ONE (12:00)
[2017-08-01] MEDS ORDERED: methylPREDNISolone SOD SUCC 125 MG/2 ML VIAL ONE (13:12)
[2017-08-01] MEDS: HYDROCORTISONE SOD SUCCINATE 100 MG VIAL IV PUSH SCH ×2 (13:15→18:13)
[2017-08-01] MEDS ORDERED: FILGRASTIM INJ 480 MCG in DEXTROSE 5% IN WATER INJ 50 ML IV SCH ×2 (14:00)
[2017-08-01] MEDS ORDERED: SODIUM CHLOR 0.9% 1000 ML INJ 2,000 ML IV ONE (15:30)
--- NOTE | 2017-08-01 15:59 | HHI.NPPN ---
Subjective History of Present Illness The patient is a 67 yo [place] female with PMHx of CKD stage 3, bradycardia s/p pacer placement, aortic stenosis s/p AVR x2, follicular lymphoma, pancytopenia, ascites requiring therapeutic paracentesis, CHF with EF 45%, atrial fibrillation , severe TR, MS who presented to this facility on 07/23 with complaints of worsening edema, SOB, and chest pain. She was started on Lasix IV, Aldactone, as Metolazone. She underwent cardiovascular evaluation and ultimately was decided that she would benefit from TVR. She unfortunately developed ARDS and is currently intubated. CXR performed showed what appears to be L loculated infection, but CT scan pending to confirm not effusion. Records reviewed from previous admissions showing baseline SCr 1.2-1.6 Her admitting SCr was 1.23 that has worsened to 2.04 at consult. Interval History Patient remains intubated not responsive to simple commands or verbal questions. and sister by the bedside. Review of Systems General General Remarks Unobtainable secondary to patient's condition. Objective Data Data Vital Signs Date Time Temp Pulse Resp B/P (MAP) Pulse Ox O2 Delivery O2 Flow Rate FiO2 08/01/17 14:38 90 100 08/01/17 11:06 90 90 08/01/17 10:51 60 08/01/17 10:48 60 08/01/17 10:40 60 08/01/17 10:35 60 08/01/17 10:30 60 08/01/17 10:25 60 08/01/17 10:20 60 08/01/17 10:15 60 08/01/17 10:10 60 08/01/17 10:05 60 08/01/17 10:03 60 08/01/17 10:00 60 08/01/17 09:35 60 15 87/51 (63) 91 08/01/17 09:35 60 08/01/17 09:30 60 08/01/17 09:30 60 14 89/52 (64) 91 08/01/17 09:25 60 08/01/17 09:25 60 13 91/50 (64) 91 08/01/17 09:20 60 08/01/17 09:20 60 12 87/50 (62) 91 08/01/17 09:15 60 08/01/17 09:15 60 13 87/50 (62) 89 08/01/17 09:10 60 08/01/17 09:10 60 13 98/49 (65) 91 08/01/17 09:05 60 14 92/53 (66) 92 08/01/17 09:05 60 08/01/17 09:00 60 08/01/17 09:00 60 15 90/50 (63) 91 08/01/17 08:55 60 08/01/17 08:55 60 14 90/50 (63) 91 08/01/17 08:50 60 08/01/17 08:50 60 13 90/49 (63) 91 08/01/17 08:45 60 14 94/48 (63) 92 08/01/17 08:45 60 08/01/17 08:40 60 15 90/49 (63) 92 08/01/17 08:40 60 08/01/17 08:35 60 08/01/17 08:35 60 13 94/50 (65) 91 08/01/17 08:30 60 15 94/52 (66) 92 08/01/17 08:30 60 08/01/17 08:25 60 17 96/50 (65) 92 08/01/17 08:25 60 08/01/17 08:20 60 17 98/52 (67) 93 08/01/17 08:20 60 08/01/17 08:15 60 14 90/53 (65) 95 08/01/17 08:15 60 08/01/17 08:10 60 13 93/50 (64) 93 08/01/17 08:10 60 08/01/17 08:06 93 70 08/01/17 08:05 60 08/01/17 08:05 60 14 90/52 (65) 93 08/01/17 08:00 97.9 60 14 91/54 (66) 94 08/01/17 08:00 70 08/01/17 08:00 60 08/01/17 07:00 Mechanical Ventilator 70 08/01/17 06:00 60 08/01/17 04:00 70 08/01/17 04:00 103.0 59 14 102/54 (70) 95 08/01/17 04:00 60 08/01/17 03:32 92 70 08/01/17 02:00 60 08/01/17 00:46 97 70 3/9/18 00:00 70 08/01/17 00:00 60 08/01/17 00:00 60 15 92/55 (67) 96 07/31/17 23:45 102.0 60 18 100/50 (67) 94 07/31/17 23:30 102.0 60 19 92/53 (66) 94 07/31/17 23:15 60 31 95/53 (67) 92 07/31/17 23:00 100.1 60 27 105/52 (69) 90 07/31/17 22:00 60 07/31/17 21:36 93 70 07/31/17 20:15 91 70 07/31/17 20:00 94 Mechanical Ventilator 30 07/31/17 20:00 70 07/31/17 20:00 99.0 60 15 91/49 (63) 96 07/31/17 20:00 60 07/31/17 18:30 60 07/31/17 18:26 60 07/31/17 18:25 60 07/31/17 18:22 60 07/31/17 18:20 60 07/31/17 18:15 60 07/31/17 18:10 60 07/31/17 18:09 60 07/31/17 18:08 60 07/31/17 18:00 60 07/31/17 17:55 99 60 07/31/17 17:36 60 07/31/17 17:30 60 07/31/17 16:00 60 -: 08/01/17 0320 08/01/17 0320 Microbiology 08/01/17 Aerobic Blood Culture, Received Pending 08/01/17 Anaerobic Blood Culture, Received Pending 08/01/17 Aerobic Blood Culture, Received Pending 08/01/17 Anaerobic Blood Culture, Received Pending 08/01/17 Gram Stain - Final, Resulted 08/01/17 Sputum Culture, Resulted Pending 07/31/17 Gram Stain - Final, Resulted 07/31/17 Sputum Culture, Resulted Pending 07/31/17 Urine Culture - Preliminary, Resulted NO GROWTH IN 24 HOURS. Physical Exam General Appearance: Malnourished Eyes Eye Exam: Sclera White Pulmonary Resp Exam: Clear Bilaterally, Breath Sounds Equal, Decreased Bases Cardiology CV Exam: Regular, Normal Sinus Rhythm Gastrointestinal/Abdomen GI Exam: Soft, Non-Tender Integumentary Skin Exam: Clear, Warm, Dry Extremeties Extremities Exam: Moderate Edema (upper lower extremities.) Neurologic Neuro Exam: Unresponsive Assessment/Plan Discussed Condition With: Spouse, Sibling Problem List: (1) SAGE (acute kidney injury) ICD Codes: N17.9 - Acute kidney failure, unspecified Status: Acute Plan: Acute renal failure secondary to cardiorenal syndrome with superimposed septic shock and blood cultures growing pseudomonas aeruginosa and strep species. Patient's azotemia continues to worsen which is not unexpected in this situation given her critical condition. Still showing evidence of significant fluid retention but not feasible to diurese aggressively ultrafiltrate because of hemodynamic instability. Given a cardiac and sepsis syndrome I expect that her azotemia will continue to worsen. I discussed with the patient's and her sister the patient's critical condition and probable worsening renal insufficiency. I discussed with them the possible option of dialytic support if this occurs. They were advised that the patient may not even tolerate dialytic support and would likely not aid in improving her volume status given the severity of her sepsis syndrome and cardiorenal syndrome. Patient's and patient's sister indicated to me that they would not want dialytic support even if the patient had terminal renal failure. They indicated this was because of her overall multiple comorbidities and condition. This would appear to be an appropriate decision given the circumstances. We will continue to follow as indicated but little to offer from a renal standpoint at this time. (2) Severe tricuspid regurgitation ICD Codes: I07.1 - Rheumatic tricuspid insufficiency Status: Acute Plan: With tentative plans to transfer to his tertiary institution for definitive management. (3) Congestive heart failure (CHF) ICD Codes: I50.9 - Heart failure, unspecified Status: Acute Plan: Which may be intractable related to valvular disease. (4) Ascites ICD Codes: R18.8 - Other ascites Plan: The exam, history, and the medical decision-making described in the above note were completed with the assistance of the PADMINI. I reviewed and agree with the findings presented. I attest that I had a [id number] encounter with the patient on the same day, and personally performed and documented my assessment and findings in the medical record. (5) Permanent atrial fibrillation ICD Codes: I48.2 - Chronic atrial fibrillation (6) Pancytopenia ICD Codes: D61.818 - Other pancytopenia (7) Follicular lymphoma grade I ICD Codes: C82.00 - Follicular lymphoma grade I, unspecified site (8) Anasarca ICD Codes: R60.1 - Generalized edema Status: Acute (9) Pseudomonas sepsis ICD Codes: A41.52 - Sepsis due to Pseudomonas Status: Acute Plan: With associated leukopenia. Problem Qualifiers (1) Congestive heart failure (CHF): Qualified Codes: I50.9 - Heart failure, unspecified Jacki King MD Aug 01, 2017 15:59
[2017-08-01] MEDS ORDERED: NOREPINEPHRINE 4 MG/D5W 250 ML IV PRN (16:15)
--- NOTE | 2017-08-01 17:02 | HHI.HCPN ---
Reason for visit a. To assist with evaluation and management of symptoms including: dyspnea, pain, anxiety b. To assist medical decision maker(s) with: better understanding of current medical conditions; weighing benefits/burdens of medical treatment options; making medical treatment decisions. . Subjective/Interval History Follow-up visit for symptom management and clarification of medical treatment goals. Patient seen and assessed in [facility] [place], room 527. Ms. Bertrand remains critically ill with respiratory failure, acute renal failure, pneumonia, pancytopenia and severe tricuspid regurgitation status post intubation yesterday 07/31/2017. Worsening neutropenia and thrombocytopenia. Patient remains hypotensive on pressor support with BP of 86/45. Hypoxic on mechanical ventilation with oxygen saturation of 87%; FiO2 100%; PEEP 12. Palliative care spoke to the patient's who has not come to the hospital because he is ill. We discussed patient's previous stated medical treatment goals as well as her worsening clinical condition. During our phone call, Alexy states a few days ago his told him she wanted everything done to keep her alive even artificial life support. The process of cardiopulmonary resuscitation was discussed in detail. I explained that given patient's frailty and multiple comorbid conditions, cardiopulmonary resuscitation would likely be futile and only serve to prolong patient's pain and suffering. However the patient's stated he had to do what his wanted right now. Patient's remains a FULL CODE. Hematology/oncology, infectious disease, nephrology and cardiology continue to follow this patient. Worsening renal function secondary to cardiorenal syndrome with superimposed septic shock. Poor candidate for hemodialysis given her hemodynamic instability. Dr. King spoke with the patient's and sister and they indicated that they would not want hemodialysis even if the patient had terminal renal failure, nephrology supported this decision. Infectious disease was consulted to evaluate patient with new bilateral infiltrates and fever. T-max 103.0 Blood cultures from 07/31/2017 with pseudomonas aeruginosa and streptococcus species. Urine culture growing gram- negative rods. Patient receiving azactam and vancomycin, meropenem was added. CT chest yesterday 07/03/16 showed masslike consolidation and mediastinal LAD. Hematology/oncology does not suspect this is due to lymphoma but feels it is likely an infectious etiology. . Family/friend interactions See interval history. . Objective Vital Signs Date Time Temp Pulse Resp B/P (MAP) Pulse Ox O2 Delivery O2 Flow Rate FiO2 08/01/17 14:38 90 100 08/01/17 11:06 90 90 08/01/17 10:51 60 08/01/17 10:48 60 08/01/17 10:40 60 08/01/17 10:35 60 08/01/17 10:30 60 08/01/17 10:25 60 08/01/17 10:20 60 08/01/17 10:15 60 08/01/17 10:10 60 08/01/17 10:05 60 08/01/17 10:03 60 08/01/17 10:00 60 08/01/17 09:35 60 15 87/51 (63) 91 08/01/17 09:35 60 08/01/17 09:30 60 08/01/17 09:30 60 14 89/52 (64) 91 08/01/17 09:25 60 08/01/17 09:25 60 13 91/50 (64) 91 08/01/17 09:20 60 08/01/17 09:20 60 12 87/50 (62) 91 08/01/17 09:15 60 08/01/17 09:15 60 13 87/50 (62) 89 08/01/17 09:10 60 08/01/17 09:10 60 13 98/49 (65) 91 08/01/17 09:05 60 14 92/53 (66) 92 08/01/17 09:05 60 08/01/17 09:00 60 08/01/17 09:00 60 15 90/50 (63) 91 08/01/17 08:55 60 08/01/17 08:55 60 14 90/50 (63) 91 08/01/17 08:50 60 08/01/17 08:50 60 13 90/49 (63) 91 08/01/17 08:45 60 14 94/48 (63) 92 08/01/17 08:45 60 08/01/17 08:40 60 15 90/49 (63) 92 08/01/17 08:40 60 08/01/17 08:35 60 08/01/17 08:35 60 13 94/50 (65) 91 08/01/17 08:30 60 15 94/52 (66) 92 08/01/17 08:30 60 08/01/17 08:25 60 17 96/50 (65) 92 08/01/17 08:25 60 08/01/17 08:20 60 17 98/52 (67) 93 08/01/17 08:20 60 08/01/17 08:15 60 14 90/53 (65) 95 08/01/17 08:15 60 08/01/17 08:10 60 13 93/50 (64) 93 08/01/17 08:10 60 08/01/17 08:06 93 70 08/01/17 08:05 60 08/01/17 08:05 60 14 90/52 (65) 93 08/01/17 08:00 97.9 60 14 91/54 (66) 94 08/01/17 08:00 70 08/01/17 08:00 60 08/01/17 07:00 Mechanical Ventilator 70 08/01/17 06:00 60 08/01/17 04:00 70 08/01/17 04:00 103.0 59 14 102/54 (70) 95 08/01/17 04:00 60 08/01/17 03:32 92 70 08/01/17 02:00 60 08/01/17 00:46 97 70 08/01/17 00:00 70 08/01/17 00:00 60 08/01/17 00:00 60 15 92/55 (67) 96 07/31/17 23:45 102.0 60 18 100/50 (67) 94 07/31/17 23:30 102.0 60 19 92/53 (66) 94 07/31/17 23:15 60 31 95/53 (67) 92 07/31/17 23:00 100.1 60 27 105/52 (69) 90 07/31/17 22:00 60 07/31/17 21:36 93 70 07/31/17 20:15 91 70 07/31/17 20:00 94 Mechanical Ventilator 30 07/31/17 20:00 70 07/31/17 20:00 99.0 60 15 91/49 (63) 96 07/31/17 20:00 60 07/31/17 18:30 60 07/31/17 18:26 60 07/31/17 18:25 60 07/31/17 18:22 60 07/31/17 18:20 60 07/31/17 18:15 60 07/31/17 18:10 60 07/31/17 18:09 60 07/31/17 18:08 60 07/31/17 18:00 60 07/31/17 17:55 99 60 07/31/17 17:36 60 07/31/17 17:30 60 Intake & Output 08/01/17 08/01/17 07:00 19:00 Intake Total 2367 ml Output Total 801 ml Balance 1566 ml Intake Oral 0 ml IV Total 1551 ml FFP 616 ml Blood Product IV Normal Saline Flush 100 ml Other 100 ml Output Urine Total 100 ml Stool Total 1 ml Gastric Drainage Total 700 ml . Physical Exam CONSTITUTIONAL/GENERAL: This is a frail, elderly female who is intubated on mechanical ventilation TUBES/LINES/DRAINS: PIV 1, implanted VAD right chest SKIN: Ashen color. Ecchymoses on upper extremities. HEAD: Atraumatic. Normocephalic. EYES: Eyes closed, did not force open. ENT: Unable to assess hearing secondary to clinical condition. No nose without bleeding or purulent drainage. NECK: Trachea midline. CARDIOVASCULAR: Paced rhythm no JVD. Peripheral pulses symmetric. RESPIRATORY/CHEST: Intubated on mechanical ventilation, agonal respirations. Hypoxic on 100% FiO2, pulse ox 87%. GASTROINTESTINAL: Abdomen soft, non-tender, nondistended. GENITOURINARY: Voiding. MUSCULOSKELETAL: No mottling or cyanosis. Pitting edema in bilateral lower extremities from thigh down LYMPHATICS: No palpable cervical or supraclavicular adenopathy. NEUROLOGICAL: Sedated on propofol and fentanyl PSYCHIATRIC: Unable to assess given current clinical condition. . Diagnostic Tests Laboratory Laboratory Tests Test 07/30/17 05:20 07/31/17 00:00 07/31/17 01:50 07/31/17 02:53 White Blood Count 2.9 TH/MM3 (4.0-11.0) 2.2 TH/MM3 (4.0-11.0) Red Blood Count 4.29 MIL/MM3 (4.00-5.30) 4.11 MIL/MM3 (4.00-5.30) Hemoglobin 11.9 GM/DL (11.6-15.3) 11.6 GM/DL (11.6-15.3) Hematocrit 34.9 % (35.0-46.0) 33.7 % (35.0-46.0) Mean Corpuscular Volume 81.2 FL (80.0-100.0) 81.9 FL (80.0-100.0) Mean Corpuscular Hemoglobin 27.8 PG (27.0-34.0) 28.1 PG (27.0-34.0) Mean Corpuscular Hemoglobin Concent 34.2 % (32.0-36.0) 34.3 % (32.0-36.0) Red Cell Distribution Width 18.4 % (11.6-17.2) 18.0 % (11.6-17.2) Platelet Count 95 TH/MM3 (150-450) 87 TH/MM3 (150-450) Mean Platelet Volume 9.0 FL (7.0-11.0) 9.8 FL (7.0-11.0) CBC Comment AUTO DIFF AUTO DIFF Differential Total Cells Counted 100 100 Neutrophils % (Manual) 57 % (16-70) 50 % (16-70) Band Neutrophils % 11 % (0-6) 3 % (0-6) Lymphocytes % 6 % (9-44) 14 % (9-44) Monocytes % 19 % (0-8) 12 % (0-8) Neutrophils # (Manual) 2.2 TH/MM3 (1.8-7.7) 1.5 TH/MM3 (1.8-7.7) Metamyelocytes 6 % (0-1) 6 % (0-1) Myelocytes 1 % (0-0) 6 % (0-0) Differential Comment FINAL DIFF MANUAL FINAL DIFF MANUAL Platelet Estimate LOW (NORMAL) LOW (NORMAL) Platelet Morphology Comment NORMAL (NORMAL) NORMAL (NORMAL) Ovalocytes 1+ (NORMAL) 1+ (NORMAL) Acanthocytes OCC (NORMAL) Blood Urea Nitrogen 44 MG/DL (7-18) 43 MG/DL (7-18) Creatinine 1.56 MG/DL (0.50-1.00) 1.60 MG/DL (0.50-1.00) Random Glucose 212 MG/DL (74-106) 245 MG/DL (74-106) Calcium Level 9.1 MG/DL (8.5-10.1) 9.1 MG/DL (8.5-10.1) Sodium Level 130 MEQ/L (136-145) 133 MEQ/L (136-145) Potassium Level 3.3 MEQ/L (3.5-5.1) 2.9 MEQ/L (3.5-5.1) Chloride Level 91 MEQ/L (98-107) 93 MEQ/L (98-107) Carbon Dioxide Level 29.8 MEQ/L (21.0-32.0) 28.9 MEQ/L (21.0-32.0) Anion Gap 9 MEQ/L (5-15) 11 MEQ/L (5-15) Estimat Glomerular Filtration Rate 33 ML/MIN (>89) 32 ML/MIN (>89) Other Cells % 8 % Promyelocytes 1 % (0-0) Toxic Granulation 2+ (NORMAL) Toxic Vacuolation PRESENT (NONE SEEN) Total Protein 5.5 GM/DL (6.4-8.2) Albumin 2.3 GM/DL (3.4-5.0) Alkaline Phosphatase 84 U/L (45-117) Aspartate Amino Transf (AST/SGOT) 16 U/L (15-37) Alanine Aminotransferase (ALT/SGPT) 14 U/L (10-53) Total Bilirubin 1.5 MG/DL (0.2-1.0) Lactic Acid Level 2.4 mmol/L (0.4-2.0) 2.2 mmol/L (0.4-2.0) Urine Color YELLOW (YELLW/STRAW) Urine Turbidity HAZY (CLEAR) Urine pH 5.5 (5.0-8.5) Urine Specific Onward 1.011 (1.002-1.035) Urine Protein 100 mg/dL (NEG-TRACE) Urine Glucose (UA) NEG mg/dL (NEG) Urine Ketones TRACE mg/dL (NEG) Urine Occult Blood SMALL (NEG) Urine Nitrite NEG (NEG) Urine Bilirubin NEG (NEG) Urine Urobilinogen LESS THAN 2.0 MG/DL (LESS Urine Leukocyte Esterase NEG (NEG) Urine RBC 2 /hpf (0-3) Urine WBC 2 /hpf (0-5) Urine Squamous Epithelial Cells 1 /hpf (0-5) Urine Bacteria MOD /hpf (NONE) Urine Hyaline Casts 9 /lpf (RARE) Microscopic Urinalysis Comment CULTURE INDICATED Test 07/31/17 09:15 07/31/17 10:30 07/31/17 10:35 07/31/17 13:30 Blood Gas Puncture Site RT RADIAL LT RADIAL Blood Gas Patient Temperature 98.6 98.6 Blood Gas HCO3 27 mmol/L (22-26) 26 mmol/L (22-26) Blood Gas Base Excess 3.9 mmol/L (-2-2) 1.3 mmol/L (-2-2) Blood Gas Oxygen Saturation 91 % (90-100) 86 % (90-100) Arterial Blood pH 7.48 (7.380-7.420) 7.38 (7.380-7.420) Arterial Blood Partial Pressure CO2 37 mmHg (38-42) 45 mmHg (38-42) Arterial Blood Partial Pressure O2 64 mmHg (61-120) 60 mmHg (61-120) Arterial Blood Oxygen Content 14.6 Vol % (12.0-20.0) 15.1 Vol % (12.0-20.0) Arterial Blood Carboxyhemoglobin 1.8 % (0-4) 1.1 % (0-4) Arterial Blood Methemoglobin 0.9 % (0-2) 1.3 % (0-2) Blood Gas Hemoglobin 11.4 G/DL (12.0-16.0) 12.5 G/DL (12.0-16.0) Oxygen Delivery Device NASAL CANNULA VENTILATOR Blood Gas Liter Flow 4 L/M Nasal Screen MRSA (PCR) MRSA NOT DETECTED (NOT White Blood Count 1.6 TH/MM3 (4.0-11.0) Red Blood Count 3.98 MIL/MM3 (4.00-5.30) Hemoglobin 11.1 GM/DL (11.6-15.3) Hematocrit 32.4 % (35.0-46.0) Mean Corpuscular Volume 81.6 FL (80.0-100.0) Mean Corpuscular Hemoglobin 27.9 PG (27.0-34.0) Mean Corpuscular Hemoglobin Concent 34.2 % (32.0-36.0) Red Cell Distribution Width 18.4 % (11.6-17.2) Platelet Count 78 TH/MM3 (150-450) Mean Platelet Volume 10.0 FL (7.0-11.0) CBC Comment AUTO DIFF Differential Total Cells Counted 50 Neutrophils % (Manual) 40 % (16-70) Band Neutrophils % 2 % (0-6) Lymphocytes % 10 % (9-44) Monocytes % 16 % (0-8) Neutrophils # (Manual) 1.1 TH/MM3 (1.8-7.7) Metamyelocytes 22 % (0-1) Myelocytes 2 % (0-0) Promyelocytes 4 % (0-0) Differential Comment FINAL DIFF MANUAL Blastocytes 4 % (0-0) Toxic Granulation 2+ (NORMAL) Platelet Estimate LOW (NORMAL) Platelet Morphology Comment NORMAL (NORMAL) Ovalocytes 1+ (NORMAL) Prothrombin Time 121.0 SEC (9.8-11.6) Prothromb Time International Ratio 12.2 RATIO Blood Urea Nitrogen 53 MG/DL (7-18) Creatinine 2.04 MG/DL (0.50-1.00) Random Glucose 209 MG/DL (74-106) Calcium Level 8.8 MG/DL (8.5-10.1) Phosphorus Level 1.8 MG/DL (2.5-4.9) Magnesium Level 2.5 MG/DL (1.5-2.5) Sodium Level 134 MEQ/L (136-145) Potassium Level 3.3 MEQ/L (3.5-5.1) Chloride Level 93 MEQ/L (98-107) Carbon Dioxide Level 28.2 MEQ/L (21.0-32.0) Anion Gap 13 MEQ/L (5-15) Estimat Glomerular Filtration Rate 24 ML/MIN (>89) Lactic Acid Level 3.5 mmol/L (0.4-2.0) Total Creatine Kinase 18 U/L (26-192) Troponin I 0.08 NG/ML (0.02-0.05) Blood Gas Ventilator Setting A/C 450/14/5PEEP Blood Gas Inspired Oxygen 100 % Test 07/31/17 19:20 07/31/17 22:40 08/01/17 03:20 08/01/17 08:09 Prothrombin Time 40.8 SEC (9.8-11.6) 37.2 SEC (9.8-11.6) Prothromb Time International Ratio 4.1 RATIO 3.7 RATIO Potassium Level 3.5 MEQ/L (3.5-5.1) 3.6 MEQ/L (3.5-5.1) Phosphorus Level 2.5 MG/DL (2.5-4.9) Urine Color DARK-YELLOW (YELLW/STRAW) Urine Turbidity CLOUDY (CLEAR) Urine pH 6.5 (5.0-8.5) Urine Specific Onward 1.019 (1.002-1.035) Urine Protein 100 mg/dL (NEG-TRACE) Urine Glucose (UA) NEG mg/dL (NEG) Urine Ketones NEG mg/dL (NEG) Urine Occult Blood TRACE (NEG) Urine Nitrite NEG (NEG) Urine Bilirubin NEG (NEG) Urine Urobilinogen LESS THAN 2.0 MG/DL (LESS Urine Leukocyte Esterase NEG (NEG) Urine RBC 9 /hpf (0-3) Urine WBC 16 /hpf (0-5) Urine Squamous Epithelial Cells 3 /hpf (0-5) Urine Transitional Epithelial Cells 2 /hpf (NONE) Urine Renal Epithelial Cells 2 /hpf (NONE) Urine Amorphous Sediment RARE Urine Bacteria MOD /hpf (NONE) Urine Hyaline Casts 20 /lpf (RARE) Urine Mucus FEW /lpf (OCC) Microscopic Urinalysis Comment CATH-CULTURE IND White Blood Count 0.7 TH/MM3 (4.0-11.0) Red Blood Count 3.41 MIL/MM3 (4.00-5.30) Hemoglobin 9.7 GM/DL (11.6-15.3) Hematocrit 28.2 % (35.0-46.0) Mean Corpuscular Volume 82.8 FL (80.0-100.0) Mean Corpuscular Hemoglobin 28.3 PG (27.0-34.0) Mean Corpuscular Hemoglobin Concent 34.2 % (32.0-36.0) Red Cell Distribution Width 18.4 % (11.6-17.2) Platelet Count 36 TH/MM3 (150-450) Mean Platelet Volume 10.8 FL (7.0-11.0) CBC Comment AUTO DIFF Differential Total Cells Counted 50 Neutrophils % (Manual) 24 % (16-70) Band Neutrophils % 28 % (0-6) Lymphocytes % 10 % (9-44) Monocytes % 6 % (0-8) Eosinophils % 12 % (0-4) Neutrophils # (Manual) 0.5 TH/MM3 (1.8-7.7) Metamyelocytes 14 % (0-1) Promyelocytes 6 % (0-0) Differential Comment FINAL DIFF MANUAL Platelet Estimate LOW (NORMAL) Platelet Morphology Comment NORMAL (NORMAL) Ovalocytes 2+ (NORMAL) Acanthocytes 1+ (NORMAL) Keratocytes OCC (NORMAL) Blood Urea Nitrogen 61 MG/DL (7-18) Creatinine 2.66 MG/DL (0.50-1.00) Random Glucose 137 MG/DL (74-106) Calcium Level 8.3 MG/DL (8.5-10.1) Sodium Level 137 MEQ/L (136-145) Chloride Level 97 MEQ/L (98-107) Carbon Dioxide Level 30.8 MEQ/L (21.0-32.0) Anion Gap 9 MEQ/L (5-15) Estimat Glomerular Filtration Rate 18 ML/MIN (>89) Random Vancomycin Level 13.4 COMMENT Activated Partial Thromboplast Time 48.1 SEC (24.3-30.1) Fibrinogen 623 mg/dL (227-377) Test 08/01/17 10:50 08/01/17 10:51 Blood Gas Puncture Site RT RADIAL Blood Gas Patient Temperature 98.6 Blood Gas HCO3 27 mmol/L (22-26) Blood Gas Base Excess 0.7 mmol/L (-2-2) Blood Gas Oxygen Saturation 86 % (90-100) Arterial Blood pH 7.26 (7.380-7.420) Arterial Blood Partial Pressure CO2 62 mmHg (38-42) Arterial Blood Partial Pressure O2 61 mmHg (61-120) Arterial Blood Oxygen Content 12.4 Vol % (12.0-20.0) Arterial Blood Carboxyhemoglobin 0.9 % (0-4) Arterial Blood Methemoglobin 1.4 % (0-2) Blood Gas Hemoglobin 10.2 G/DL (12.0-16.0) Oxygen Delivery Device VENTILATOR Blood Gas Ventilator Setting A/C 450/14/10PEEP Blood Gas Inspired Oxygen 70 % Lactic Acid Level 3.1 mmol/L (0.4-2.0) . Result Diagram: 08/01/17 0320 08/01/17 0320 Microbiology Microbiology Date/Time Source Procedure Growth Status 08/01/17 13:39 Blood Peripheral Aerobic Blood Culture Pending Received 08/01/17 13:39 Blood Peripheral Anaerobic Blood Culture Pending Received 08/01/17 13:30 Blood Peripheral Aerobic Blood Culture Pending Received 08/01/17 13:30 Blood Peripheral Anaerobic Blood Culture Pending Received 07/31/17 00:05 Blood Peripheral Aerobic Blood Culture - Preliminary Gram Negative Kong Resulted 07/31/17 00:05 Blood Peripheral Anaerobic Blood Culture - Preliminary NO GROWTH IN 1 DAY Resulted 07/31/17 00:00 Blood Peripheral Aerobic Blood Culture - Preliminary Pseudomonas Aeruginosa Resulted 07/31/17 00:00 Anaerobic Blood Culture - Preliminary Streptococcus Species Resulted 08/01/17 08:33 Sputum Endotracheal Gram Stain - Final Resulted 08/01/17 08:33 Sputum Endotracheal Sputum Culture Pending Resulted 07/31/17 23:30 Sputum Endotracheal Gram Stain - Final Resulted 07/31/17 23:30 Sputum Endotracheal Sputum Culture Pending Resulted 07/31/17 12:21 Nasal Washing Influenza Types A,B Antigen (JENNIE) - Final NEGATIVE FOR FLU A AND B ANTIGEN.... Complete 07/31/17 22:40 Urine Catheterized Urine Urine Culture - Preliminary NO GROWTH IN 24 HOURS. Resulted 07/31/17 10:50 Urine Catheterized Urine Legionella Antigen - Final PRESUMPTIVE NEGATIVE FOR LEGIONELLA P... Complete 07/31/17 10:50 Urine Catheterized Urine Streptococcus pneumoniae Antigen (M - Final PRESUMPTIVE NEGATIVE FOR STREPTOCOCCU... Complete 07/31/17 01:50 Urine Clean Catch Urine Culture - Preliminary Gram Negative Kong Resulted . Imaging Last 72 hours Impressions Renal Ultrasound 07/31/17 0000 Signed Impressions: Service Date/Time: July 14:25 - CONCLUSION: 1. Abdominal ascites. 2. Both kidneys are sonographically stable and intact. 3. Nonvisualization of the bladder as it is completely decompressed. Salomón Obrien MD Chest X-Ray 07/31/17 0000 Signed Impressions: Service Date/Time: July 13:07 - CONCLUSION: 1. Bilateral masslike airspace disease, right greater than left. Lesion on the left actually appears slightly more prominent when compared to the examination earlier today suggesting an infectious etiology. 2. Interval placement of an endotracheal and nasogastric tubes as above. Both appear to be appropriately positioned. Stable position of the right-sided [id number] and left subclavian bipolar pacer 3. Heart size remains prominent. Probable right-sided effusion. Salomón Obrien MD Chest X-Ray 07/31/17 0000 Signed Impressions: Service Date/Time: July 09:21 - CONCLUSION: Stable bilateral patchy pulmonary infiltrates without significant change compared to the prior exam. Naga Felder MD Chest CT 07/31/17 0000 Signed Impressions: Service Date/Time: July 17:54 - CONCLUSION: 1. Abnormal appearance the lungs and mediastinum with multiple masslike areas of infiltrate containing air bronchograms and numerous middle mediastinal enlarged lymph nodes. There is also a small right pleural effusion. Malignant and infectious causes can produce this type of appearance. 2. Marked dilation of the inferior vena cava. Prominent amount of ascites. Dash Carolina MD Chest X-Ray 07/30/17 0000 Signed Impressions: Service Date/Time: Sunday, July 30, 2017 23:20 - CONCLUSION: There is new patchy bilateral air space consolidation in the mid and upper lung zones. Chapito Richards MD . Procedures 07/31/17: Intubation . Assessment and Plan Disease Oriented Problem List: (1) MS (multiple sclerosis) (2) Systolic CHF, acute on chronic (3) Lymphoma (4) Hypokalemia (5) Severe tricuspid regurgitation (6) Congestive heart failure (CHF) (7) Ascites (8) Pancytopenia (9) Follicular lymphoma grade I (10) H/O multiple sclerosis (11) CAD (coronary artery disease) (12) Chronic atrial fibrillation (13) History of cardiac pacemaker (14) Generalized anxiety disorder (15) History of mechanical aortic valve replacement (16) History of aortic valve replacement Symptom Scale: (1) Dyspnea (2) Anxiety (3) Pain Pertinent Non-Medical Issues Psychosocial:Patient is and lives with her in [place], [place]. They have been for 38 years. She has a 47-year-old daughter from a previous marriage. 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 Her daughter was recently diagnosed with HIV and had to be kicked out of the house approximately 6 months ago. Spiritual: Christian wen Legal: Per [place] statutes, in the absence of written advanced directives healthcare proxy decision making falls to the patient's spouse. Ethical issues impacting care: No known ethical issues impacting care at this time. . Important Contacts Naga Jerzy, spouse: [phone] Sadia Ching, Sister: [phone] . Prognosis Patient is a 67-year-old female with an extremely complicated medical history who is significantly debilitated, requiring mechanical intervention. She was hospitalized 07/23/2017 for management of acute on chronic CHF likely secondary to severe/wide open tricuspid valve regurgitation. Would expect ongoing episodes of fluid retention until/if the tricuspid valve can be repaired, however the patient is high risk for any intervention at this time. Patient is now neutropenic with supratherapeutic INR at 12.2. Given the patient's critical condition, overall debility and extremely complicated medical history, she will remain at risk for ongoing complications and decline. . Code Status: Full Code Plan * FULL CODE * Patient is critically ill, sedated on mechanical ventilation. Per [place] statutes, and absence of written advanced directives healthcare proxy decision making falls to the patient's . * SYMPTOM MANAGEMENT: = Anxiety: Known history of anxiety. Psychiatry was consulted on 07/28/2017 per patient who feels anxious given current hospitalization and complex medical history. Patient currently on Wellbutrin 75mg BID. Dr. Norris started the patient on Zoloft 25 mg daily and clonidine 0.5 mg 2 times daily as needed for breakthrough anxiety. = Pain: Multifactorial. Patient complaining of lower extremity pain secondary to edema; she has also complained of chest pain that she associates with persistent cough. Currently patient is sedated with propofol and fentanyl , intubated on mechanical ventilation. No symptoms of nonverbal pain observed. We will continue to monitor. No recommendations at this time. = Dyspnea: Multifactorial. Status post intubation on 07/31/2017. Hypoxic on mechanical ventilation with oxygen saturation of 87%; FiO2 100%; PEEP 12. CT chest yesterday 07/03/16 showed masslike consolidation and mediastinal LAD. Hematology/oncology does not suspect this is due to lymphoma but feels it is likely an infectious etiology. * Discussed patient with bedside nurse and Dr. Bravo. * Palliative care spoke to the patient's who has not come to the hospital because he is ill. We discussed patient's previous stated medical treatment goals as well as her worsening clinical condition. During our phone call, Alexy states a few days ago his told him she wanted everything done to keep her alive even artificial life support. The process of cardiopulmonary resuscitation was discussed in detail. I explained that given patient's frailty and multiple comorbid conditions, cardiopulmonary resuscitation would likely be futile and only serve to prolong patient's pain and suffering. However the patient's stated he had to do what his wanted right now. Patient's remains a FULL CODE. * Palliative care will continue to follow this patient throughout his hospitalization to establish trust, assist with symptom management clarification of medical treatment goals. . Attestation To help prompt me to consider important information that might be impacting today's encounter and assessment, information from prior notes written by myself or my colleagues may have been "brought forward" into today's note. My signature on this note, however, is an attestation that I personally performed the exam, history, and/or decision-making noted today, and, unless otherwise indicated, the interactions with patient, family, and staff as well as the review of records all occurred today. I also attest that the listed assessment and stated plan reflect my best clinical judgment today based on the combination of historical information, prior notes, and today's exam/ interactions. When time spent is documented, it refers only to time spent today by the signer, or if indicated, combined time spent today by collaborating physician/nurse practitioner. . Anamika Glass Aug 01, 2017 17:02
--- NOTE | 2017-08-01 18:32 | HHI.HCPN ---
Nurse inform me that have a change of heart in terms of code status. I called Naga Bertrand pt's decision maker/health care proxy. His goals of care is to continue treatment, continue intubation, but should her heart gives out, no cpr/acls/shock. This confirms what Naga had told the nurse earlier. I will change code status to intubation only, but no cpr/acls/ or shock Palliative care will follow up on Friday. Eladio Ponce MD Aug 01, 2017 18:31
--- NOTE | 2017-08-01 19:23 | ECHRPT ---
Indication: ENDOCARDITIS, POSS SEPSIS CONCLUSIONS The left ventricular systolic function is moderately reduced with an estimated ejection fraction in the range of 40-45%. Mild concentric left ventricular hypertrophy. There is a flattened septum in diastole consistent with right ventricle volume overload. The right ventricle is severely dilated. The right ventricular systoilc function is moderately decreased. Mild mitral valve regurgitation. Most likely stenosis of the aortic mechanical valve (peak grad 64, mean 28, KATTY 0.74). There is severe tricuspid regurgitation. BP: 102 / 54 HR: 60 Rhythm: Sinus MEASUREMENTS (Male / Female) Normal Values Technical Quality:Fair 2D ECHO LV Diastolic Diameter PLAX 4.9 cm 4.2 - 5.9 / 3.9 - 5.3 cm LV Systolic Diameter PLAX 3.6 cm IVS Diastolic Thickness 1.3 cm 0.6 - 1.0 / 0.6 - 0.9 cm LVPW Diastolic Thickness 1.3 cm 0.6 - 1.0 / 0.6 - 0.9 cm LV Relative Wall Thickness 0.5 RV Internal Dim ED PLAX 4.4 cm LVOT Diameter 1.8 cm Aortic Root Diameter 3.6 cm LA Systolic Diameter LX 4.8 cm 3.0 - 4.0 / 2.7 - 3.8 cm DOPPLER AV Peak Velocity 403.0 cm/s AV Peak Gradient 65.0 mmHg AV Mean Gradient 40.0 mmHg AV Velocity Time Integral 67.6 cm LVOT Peak Velocity 185.0 cm/s LVOT Peak Gradient 13.7 mmHg LVOT Velocity Time Integral 28.5 cm AV Area Cont Eq vti 1.1 cm AV Area Cont Eq pk 1.2 cm Mitral E Point Velocity 161.3 cm/s TV Peak Velocity 152.0 cm/s TR Peak Velocity 308.0 cm/s TR Peak Gradient 37.9 mmHg Right Atrial Pressure 10.0 mmHg Pulmonary Artery Systolic Pressu 47.9 mmHg Right Ventricular Systolic Press 47.9 mmHg FINDINGS LEFT VENTRICLE Normal left ventricular size. Mild concentric left ventricular hypertrophy. The left ventricular systolic function is moderately reduced with an estimated ejection fraction in the range of 40-45%. There is a flattened septum in diastole consistent with right ventricle volume overload. RIGHT VENTRICLE The right ventricle is severely dilated. The right ventricular systoilc function is moderately decreased. A pacemaker wire is noted. LEFT ATRIUM The left atrial size is moderately dilated. RIGHT ATRIUM There is a pacemaker wire present in the right atrial cavity. The right atrial size is moderately dilated. ATRIAL SEPTUM The interatrial septum not well visualized. AORTA The aortic root and proximal ascending aorta are normal in size on limited imaging. MITRAL VALVE Structurally normal mitral valve. Mild mitral valve regurgitation. No mitral valve stenosis. AORTIC VALVE Mechanical aortic valve noted No aortic valve regurgitation. Most likely stenosis of the aortic mechanical valve (peak grad 64, mean 28, KATTY 0.74) TRICUSPID VALVE There is severe tricuspid regurgitation. Unable to determine pulmonary artery pressire based on this waveform. PULMONARY VALVE The pulmonary valve is not well visualized. VESSELS The inferior vena cava was not well visualized. Branden Oquendo DO (Electronically Signed) Final Date:01 August 2017 19:23
[2017-08-01] MEDS: SODIUM CHLORIDE 0.9% FLUSH 10 ML FLUSH IV FLUSH PRN (21:48)
[2017-08-01] MEDS: MONTELUKAST SODIUM 10 MG TAB PO SCH (21:53)
--- NOTE | 2017-08-01 23:24 | DEATH SUM ---
Pronouncement Date Pronounced : Aug 01, 2017 Time Of : 22:55 Pronouncement Called to pronounce of patient. Identified patient as Radha Bertrand with wrist band MR# [id number]. Patient with no cardiac activity in 2 separate leads and no palpable/auscible cardiac activity. Patient with no spontaneous respirations, no corneal reflex or response to painful stimuli. Pupils fixed and dilated. Preliminary Cause of : Cardiac arrest Miguel Mejia MD Aug 01, 2017 23:24
--- NOTE | 2017-08-02 20:08 | MB ---
cc: Greta Garza MD, V J MD DATE OF CONSULT: 08/01/2017 REASON FOR CONSULTATION: Respiratory failure. HISTORY OF PRESENT ILLNESS: This is a 67-year-old white female with a history of multiple medical problems who was previously known to have follicular lymphoma, history of CHF and CVA and permanent pacemaker placement for bradycardia, was discharged from the hospital and readmitted with dizziness and severe hypertension. The patient has been neutropenic and was having significant chest congestion, cough, wheezing and chest pains, and has been on diuretics to clear some of the fluid accumulation of the abdomen and extremities. Following admission, however, the patient went into progressive respiratory failure requiring intubation and ventilator support with 100% FiO2. The patient has been placed in the intensive care unit and now hypotensive and obtunded and assisting the ventilator. PAST MEDICAL HISTORY: Included history of aortic valve replacement and permanent pacemaker placement, history of CHF and CVA, and chronic anticoagulation. She has had an appendectomy, left oophorectomy, hysterectomy and a cholecystectomy. She has no history of diabetes or chronic lung disease. The patient's chest x-ray showed bilateral pulmonary infiltrates. Her echocardiogram had demonstrated evidence of tricuspid insufficiency. Plans are being made to transfer her for tricuspid valve repair at [facility]. Presently, however, the patient is obtunded and critical and too risky to transport. ALLERGIES: KEFLEX, AMPICILLIN, ASPIRIN, CIPRO, DOXYCYCLINE, MORPHINE, DICLOFENAC, GENTAMICIN, KETOROLAC, METRONIDAZOLE, PROPOXYPHENE AND IODINE. MEDICATIONS: Med list was reviewed, also included Bumex, metolazone, Vitamin D3, omeprazole, lovastatin, baclofen. HABITS: The patient has no history of smoking or significant alcohol use. FAMILY HISTORY: Noncontributory. REVIEW OF SYSTEMS: The patient is on ventilator support, unresponsive. PHYSICAL EXAMINATION: GENERAL: This elderly, thinly built white female is unresponsive, intubated, assisting the ventilator, pale and cyanotic. VITAL SIGNS: Blood pressure 100/70, pulse is 62, respirations 22, temperature is 98. HEENT: Head normocephalic. Pupils sluggishly reactive. Sclerae were injected. Throat has secretions. Nasal mucosa injected. Ears: No inflammation. NECK: No bruits or thyroid enlargement. CHEST: Coarse wheezes throughout both lung cheung, prolonged expirations with scattered crackles bilaterally. HEART: The heart sounds are irregular, S1 and S2. There is a systolic murmur along the sternal border. ABDOMEN: Soft and there are no masses. There is some abdominal ascites. No organomegaly. The bowel sounds are not well heard. EXTREMITIES: Cool extremities with 2+ edema and diminished pulses. NEUROLOGIC: Reflexes are not elicited. Babinski is equivocal. The patient is not responsive. SKIN: Cool and dry. IMPRESSION: 1. Ventilator dependent respiratory failure. 2. Sepsis with shock. 3. Bilateral pulmonary infiltrates with pulmonary edema and pneumonia. 4. Chronic atrial fibrillation. 5. Severe tricuspid regurgitation. 6. Anasarca with ascites. 7. History of aortic valve replacement. 8. History of lymphoma. 9. Acute kidney injury. PLAN: The patient is critically ill. She will be maintained on ventilator support. FiO2 will be gradually weaned down to maintain saturation around 92%. We will also continue with nebulized DuoNeb solution q 6 hours. Tracheal suctioning and lavage is to be done. Culture from tracheal aspirate and Gram stain, AFB and fungal stains to be obtained. Infectious Disease consultation is in progress for antibiotic coverage. Followup chest x-ray has been ordered as well. Tube feedings will be stated when she is clinically stable. Her prognosis is quite guarded. I will follow the case with you, Dr. Robledo. Thank you for this consultation. Greta Garza MD VJD//rh , 10:41 AM , 05:51 PM
== END 2017-08-01 22:55 | disposition expired | DRG 291 ==
LOC: NEPC 16:51 → NEDA 20:10 → N04A 22:16 → HIMN 07-31 10:20 → UNDODISIN 08-02 02:00
PROVIDERS: ADMIT Internal Medicine Critical Care Medicine; ATTEND Internal Medicine Critical Care Medicine
PROC: 30233K1 Transfusion of Nonautologous Frozen Plasma into Peripheral Vein, Percutaneous Approach (ICD-10-PCS; principal; 2017-07-31)
PROC: 5A1945Z Respiratory Ventilation, 24-96 Consecutive Hours (ICD-10-PCS; 2017-07-31)
PROC: 0BH17EZ Insertion of Endotracheal Airway into Trachea, Via Natural or Artificial Opening (ICD-10-PCS; 2017-07-31)
DX: I13.0 Hypertensive heart and chronic kidney disease with heart failure and stage 1 through stage 4 chronic kidney disease, or unspecified chronic kidney disease (principal); I50.23 Acute on chronic systolic (congestive) heart failure; J96.01 Acute respiratory failure with hypoxia; A41.52 Sepsis due to Pseudomonas; R65.21 Severe sepsis with septic shock; D65 Disseminated intravascular coagulation [defibrination syndrome]; J18.9 Pneumonia, unspecified organism; D61.818 Other pancytopenia; N17.9 Acute kidney failure, unspecified; R18.8 Other ascites; E11.22 Type 2 diabetes mellitus with diabetic chronic kidney disease; I08.2 Rheumatic disorders of both aortic and tricuspid valves; G35 Multiple sclerosis; R16.1 Splenomegaly, not elsewhere classified; N18.3 Chronic kidney disease, stage 3 (moderate); K74.60 Unspecified cirrhosis of liver; I48.2 Chronic atrial fibrillation; Z79.01 Long term (current) use of anticoagulants; Z95.2 Presence of prosthetic heart valve; J45.909 Unspecified asthma, uncomplicated; Y95 Nosocomial condition; K21.9 Gastro-esophageal reflux disease without esophagitis; M10.9 Gout, unspecified; E78.5 Hyperlipidemia, unspecified; I25.118 Atherosclerotic heart disease of native coronary artery with other forms of angina pectoris; E87.6 Hypokalemia; I46.9 Cardiac arrest, cause unspecified; F32.9 Major depressive disorder, single episode, unspecified; R50.81 Fever presenting with conditions classified elsewhere; F41.1 Generalized anxiety disorder; F43.22 Adjustment disorder with anxiety; Z88.6 Allergy status to analgesic agent; Z95.0 Presence of cardiac pacemaker; Z85.820 Personal history of malignant melanoma of skin; Z85.72 Personal history of non-Hodgkin lymphomas; Z88.1 Allergy status to other antibiotic agents; Z92.21 Personal history of antineoplastic chemotherapy; Z86.73 Personal history of transient ischemic attack (TIA), and cerebral infarction without residual deficits; Z88.0 Allergy status to penicillin; Z88.5 Allergy status to narcotic agent
CPT/HCPCS: 31500; 36430; 36600; 70450; 71045; 71250; 72125; 72128; 76775; 80048; 80053; 80202; 81001; 82550; 82805; 83605; 83735; 83880; 84100; 84132; 84439; 84443; 84484; 85007; 85027; 85384; 85610; 85730; 86927; 87040; 87070; 87077; 87086; 87186; 87205; 87449; 87641; 87804; 93005; 93308; 94002; 94003; 94640; 94664; 94667; 96374; C9113; J1442; J1720; J1940; J2185; J2930; J3010; J3370; J3480; J7030; J7040; J7050; J7613; P9017